=== PATIENT | male | born 1955 | race Caucasian/White ===

== ENCOUNTER 2022-01-21 13:07 | Outpatient (REF) | payer MEDICARE, BC, SELFPAY ==
[2022-01-21 15:09] LABS: BF Clarity* Clear; BF Color Xanthochromic; BF Total Volume* 9
[2022-01-21 15:10] LABS: Mononuclear WBC Body Fluid* 87 %; Polynuclear WBC Body Fluid* 13 %; RBC, Body Fluid* 0.001 10^6/uL; WBC, Body Fluid* 0.053 10^3/uL
== END 2022-01-21 13:08 | disposition home or self-care (01) ==
LOC: NPINS 13:07
PROVIDERS: PCP Family Medicine; Visit Provider Physician Assistant
DX: M25.462 Effusion, left knee (principal); M25.562 Pain in left knee
CPT/HCPCS: 87070; 87205; 89051; 89060

== ENCOUNTER 2022-01-27 10:12 | Outpatient (CLI) | payer MEDICARE, BC, SELFPAY ==
--- OUTSIDE RECORDS SUMMARY | 2022-01-27 10:14 | XMS_ITS | Encounter Summary ---
:1955 Author Organization [place] Address [address] [facility] [place] [address] Care Team Providers Name Role Phone Tony Gray MD Unavailable Conner Harper MD Unavailable Marivel Cavazos PA-C Unavailable Zhang Masterson Primary Care Provider Encounter Details Date Type Department Care Team Description 10/21/2021 Travel Social History Tobacco Use Types Packs/Day Years Used Date Former Smoker Cigarettes Smokeless Tobacco: Never Used Alcohol Use Standard Drinks/Week Comments Never 0 (1 standard drink = 0.6 oz pure alcoho l) Sex Assigned at Date Recorded Not on file COVID-19 Exposure Response Date Recorded In the last 10 days, have you been in contact with No / Unsu re 10/21/2021 9:25 AM CDT someone who was confirmed or suspected to have Coronavirus/COVID-19? documented as of this encounter Plan of Treatment Upcoming Encounters Date Type Specialty Care Team Description 02/17/2022 Office Visit Pain & [place] [address] [facility] [place] [address] (Wo rk) documented as of this encounter Visit Diagnoses Not on filedocumented in this encounter Care Teams Auto Body Technician Relationship Specialty Start Date End Date Zhang Masterson PCP - General Family Medicine 05/19/[address] [place] [address] [place] [address] Tony Gray MD Referring Physician Orthopedics 10/01/14 Conner Harper MD MD Orthopedics 10/01/[address] [place], [place] [address] Marivel Cavazos, Assigned Surgical Provider 1 PAAleida 1600 [facility] 101 [place], [place] [id number] documented as of this encounter
--- OUTSIDE RECORDS SUMMARY | 2022-01-27 10:14 | XMS_ITS | Encounter Summary ---
:1955 Author Organization [place] Address [address] [facility] [place] [address] Care Team Providers Name Role Phone Tony Gray MD Unavailable Conner Harper MD Unavailable Marivel Cavazos PA-C Unavailable Zhang Masterson Primary Care Provider Reason for Visit Reason Onset Date Comments Opioid Refill 11/16/2021 HYDROcodone-acetamin ophen (NORCO) 10-325 MG per tablet Encounter Details Date Type Department Care Team Description 11/16/2021 Refill [facility] Matias Burton MD (HYDROcodone-acetamino [address] [address] [place] phen (NORCO) 10-325 MG [address] [place] [address] per tablet/) [place], [place] [id number] [phone] Social History Tobacco Use Types Packs/Day Years [...] have Coronavirus/COVID-19? documented as of this encounter Miscellaneous Notes Telephone Encounter - Bria Mena MA - 11/18/2021 8:32 AM CDT Spoke to patient, notified that prescription was sent to preferred pharmacy. Able to fill 11/18/21 and start 11/20/21 Bria Mena MA [facility] Telephone Encounter - Ortiz Perez MD - 11/16/2021 12:53 PM CDT HULL BUILDER reviewed, norco refill approved. DO Kary Campuzano [facility] Telephone Encounter - Lauren Mcmillan RN - 11/16/2021 12:36 PM CDT Routing to provider to review medication prepped per below Horner 10-325, #150, Refill:no Sig:. Max of 5/day. Put 6 hours between doses. OK to fill 11/18/21 and start 11/20/21 Last picked up 10/15/21 with start on 10/21/21 Due 11/20/21 Per last OV note 10/15/21: 1. Medication Management:?? 1. Horner 10-325, 4-5 tabs daily, #150/month. Will increase back to 150 with next refill. They will call and let us know how man tablets are remaining from the last refill. Lauren KRAFT, RN Melt House Drag Operator [facility] Telephone Encounter - Bria Mena MA - 11/16/2021 9:46 AM CDT Received call from patient requesting refill(s) of HYDROcodone-acetaminophen (NORCO) 10-325 MG per tablet Last dispensed from pharmacy on 10/18/21 Patient's last office/virtual visit by prescribing provider on 10/15/21 Next office/virtual appointment scheduled for 12/14/21 Last urine drug screen date 05/20/21 Current opioid agreement on file (completed within the last year) Yes Date of opioid agreement: 09/01/21 E-prescribe to [facility] [address] [address] Will route to [facility] for review and preparation of prescription(s). Bria Mena MA [facility] [place] Telephone Encounter - Rose Tee - 11/16/2021 8:36 AM CDT Reason for call: Medication If this is a refill request, has the caller requested the refill from the pharmacy already? No Will the patient be using a [facility]? [place] of the pharmacy and phone number for the current request: [facility] - [address] Name of the medication requested: -HYDROcodone-acetaminophen (NORCO) 10-325 MG per tablet -hydrOXYzine (VISTARIL) 25 MG capsule Phone number to reach patient: Home number on file [phone] (home) Can we leave a detailed message on this number? 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
--- OUTSIDE RECORDS SUMMARY | 2022-01-27 10:14 | XMS_ITS | Encounter Summary ---
:1955 Author Organization [place] Address [address] [place] [address] Care Team Providers Name Role Phone Tony Gray MD Unavailable Conner Harper MD Unavailable Marivel Cavazos PA-C Unavailable Zhang Masterson Primary Care Provider Reason for Visit Reason Onset Date Comments Transfer Note 10/25/2021 Encounter Details Date Type Department Care Team Description 10/25/2021 [facility] Ortiz Gill Transfer [place] [address] [address] [facility] [address] [place] [address] [place] [address] [phone] Social History Tobacco Use Types Packs/Day Years [...] this encounter Miscellaneous Notes Telephone Encounter - Lauren Mcmillan RN - 10/25/2021 11:04 AM CDT Called pt with transfer plan to transition to Dr Buckley. Pt aware discussion re:recent CT will stillbe reviewed by Dr Perez, transition upon his departure from clinic to be with Dr Marcio KRAFT, RN Lithographic Plate Maker Apprentice [facility] documented in this encounter Plan of Treatment Upcoming Encounters Date Type Specialty Care Team Description 02/17/2022 Office Visit Pain & [place] [address] [place], [place] [address] (Wo rk) documented as of this encounter Visit Diagnoses Not on filedocumented in this encounter Care Teams Stripper Apprentice Relationship Specialty Start Date End Date Zhang Masterson PCP - General Family Medicine 05/19/[address] [place] [address] Tony Gray MD Referring Physician Orthopedics 10/01/14 Conner Harper MD MD Orthopedics 10/01/[address] [place] [address] Marivel Cavazos, Assigned Surgical Provider 1 PAJuventinoC [address] [facility] [address] [place], [place] [id number] documented as of this encounter
--- OUTSIDE RECORDS SUMMARY | 2022-01-27 10:14 | XMS_ITS | Clinical Summary ---
:1955 Author Organization [place] Address [address] [place] [address] Care Team Providers Name Role Phone Tony Gray MD Unavailable Conner Harper MD Unavailable Marivel Cavazos PA-C Unavailable Zhang Masterson Primary Care Provider Allergies Active Allergy Reactions Severity Noted Date Comments Bee Venom High 06/06/2011 Other reaction( s): Edema Bees 11/03/2014 Fentanyl Shortness Of Breath High 05/06/2011 Gabapentin Hives, Swelling 01/27/2012 Other reacti on(s): Angioedema Methadone Rash Low 05/06/2011 Oxycodone Hives High 06/06/2011 Oxycodone-Acetaminophen Rash Low 05/06/2011 Sulfamethoxazole-Trimet 06/06/2011 Othe r reaction(s): hoprim *Unknown - Pt D oesn't Remember Tapentadol Hives, Itching High 03/01/2017 Other reactio n(s): Atopic Dermatit is Medications Medication Sig Dispensed Refills Start Date End Date Status amLODIPine (NORVASC) 5 0 03/02/2021 Active MG tablet torsemide (DEMADEX) 20 0 02/26/2021 Active MG tablet hydrALAZINE Take 100 mg by 0 03/17/2021 Ac tive (APRESOLINE) 50 MG mouth 2 times tablet daily acetaminophen Take 1 tablet 120 tablet 0 08/25/2021 Active (TYLENOL) 500 MG (500 mg) by mouth tabletIndications: every 6 hours as Degeneration of lumbar needed for mild intervertebral disc, pain Chronic bilateral low back pain with bilateral sciatica hydrOXYzine (VISTARIL) Take 1 capsule 90 capsule 1 10/29/2021 Active 25 MG (25 mg) by mouth capsuleIndications: 3 times daily as Chronic pain syndrome, needed for Degeneration of lumbar itching intervertebral disc, Chronic bilateral low back pain with bilateral sciatica cyclobenzaprine Take 1-2 tablets 150 tablet 0 12/14/2021 Active (FLEXERIL) 5 MG (5-10 mg) by tabletIndications: mouth 3 times Chronic pain syndrome, daily as needed Degeneration of lumbar for muscle spasms intervertebral disc, Chronic bilateral low back pain with bilateral sciatica HYDROcodone-acetaminop Take 1-2 tablets 165 tablet 0 2 Active hen (NORCO) 10-325 MG by mouth 3 times per tabletIndications: daily as needed Chronic pain syndrome, for severe pain . Degeneration of lumbar Max of 5/day. Put intervertebral disc, 6 hours between Chronic bilateral low doses. OK to fill back pain with 12/17/21 and bilateral sciatica start 12/18/21 naloxone (NARCAN) 4 [place] 1 spray (4 0.2 mL 0 12/14/2021 Active MG/0.1ML nasal mg) into one sprayIndications: nostril Chronic pain syndrome, alternating Degeneration of lumbar nostrils once as intervertebral disc, needed for opioid Chronic bilateral low reversal every back pain with 2-3 minutes until bilateral sciatica, assistance Chronic, continuous arrives use of opioids Active Problems Problem Noted Date Knee pain 11/03/2014 S/P ACL reconstruction 11/03/2014 DJD (degenerative joint disease) of knee 11/03/2014 S/P meniscectomy 11/03/2014 Encounters Date Type Specialty Care Team Description 12/14/2021 Office Visit Pain & Palliative Ortiz Perez Newspaper Correspondent [place], continuous use of opioids (Primary Dx); oLc Burton MD Chronic pain sy ndrome; Degeneration of lumbar intervertebral disc; Chronic bilater al low back pain with bilateral sciatica; Lumbar radiculo vamsi 12/14/2021 Travel 11/16/2021 Refill Pain & Palliative Ortiz Perez Opio id Refill Loc Burton MD (HYDROcodone-ac etamino phen (NORCO) 10 -325 MG per tablet/) 10/29/2021 Refill Pain & Palliative Ortiz Perezi ll Request Care MD Micheal from Last 3 Months Immunizations Name Administration Dates Next Due COVID-19,PF,Pfizer (12+ Yrs) 10/26/2020, 10/05/2020 Social History Tobacco Use Types Packs/Day Years Used Date Former Smoker Cigarettes Smokeless Tobacco: Never Used Alcohol Use Standard Drinks/Week Comments Never 0 (1 standard drink = 0.6 oz pure alcoho l) Sex Assigned at Date Recorded Not on file Last Filed Vital Signs Vital Sign Reading Time Taken Comments Blood Pressure 143/78 12/14/2021 9:25 AM CDT Pulse 63 12/14/2021 9:25 AM CDT Temperature - - Respiratory Rate 18 02/04/2021 11:07 AM CDT Oxygen Saturation 97% 12/14/2021 9:25 AM CDT Inhaled Oxygen Concentration - - Weight 96.2 kg (212 lb 1.6 oz) 10/15/2021 9:58 AM CDT Height 172.7 cm (5' 8) 02/04/2021 11:07 AM CDT Body Mass Index 32.25 02/04/2021 11:07 AM CDT Plan of Treatment Upcoming Encounters Date Type Specialty Care Team Description 02/17/2022 Office Visit Pain & [place] [address] [place], [place] [address] (Wo rk) Health Maintenance Due Date Last Done Comments ADVANCE CARE PLANNING 1955 ANNUAL REVIEW OF HM ORDERS 1955 CT COLONOGRAPHY 1955 FIT-DNA (Cologuard) 1955 FIT 1955 FLEX SIG 1955 COLONOSCOPY 1966 COLORECTAL CANCER SCREENING 1966 HIV SCREENING 09/13/1971 HEPATITIS C SCREENING 1974 LIPID 09/13/1991 LUNG CANCER SCREENING 2006 ZOSTER IMMUNIZATION (1 of 2) 2006 PHQ-2 (once per calendar 06/19/2021 year) COVID-19 Vaccine (4 - Booster 09/04/2021 05/07/2021, for Pfizer series) 10/26/2020, 10/05/2020 AORTIC ANEURYSM SCREENING 2021 (SYSTEM ASSIGNED) FALL RISK ASSESSMENT 2021 MEDICARE ANNUAL WELLNESS 2021 VISIT Pneumococcal Vaccine: 65+ 2021 Years (1 - PCV) INFLUENZA VACCINE (#1) 2022 DTAP/TDAP/TD IMMUNIZATION (2 05/15/2022 05/15/2012 - Td or Tdap) URINE DRUG SCREEN 05/20/2022 05/20/2021, 06/10/2020, 06/13/2019 HEPATITIS B IMMUNIZATION Aged Out No long er eligible based on patient's age to complete this to pic IPV IMMUNIZATION Aged Out No longer eligi ble based on patient's age to complete this to pic MENINGITIS IMMUNIZATION Aged Out No longe r eligible based on patient's age to complete this to pic Medical Devices Implanted Type Area [employer]roleum [employer] Firer Device Shelf Model / Identifier Expiration Date Ser ial / Lot Igp Kit/Generator Right: 02/07/2020 / Implanted: Qty: 1 on 11/29/2018 Back [id number] / [id number] Description: GENERATOR PLACED IN RIGHT F LANK Procedures Procedure Name Priority Date/Time Associated Diagnosis Comme nts EMG - HIM SCAN 01/03/2022 12:00 AM CDT from Last 3 Months Results EMG - HIM SCAN (01/03/2022 12:00 AM CDT) Specimen (Source) Anatomical Location Collection Method / Collectio n Time Received Time / Laterality Volume 01/03/2022 Narrative This result has an attachment that is no t available. Provider Outside IP NEUROLOGY ORDERABLES from Last 3 Months Insurance Payer Benefit Plan / Subscriber ID Effective Phone Address T ype Group Dates WORK COMP WC LIBERTY [id number] 2001-Prese [phone] [address] [employer] [address] [place] [address] MEDICARE MEDICARE [id number] 2005-Prese [id number] ATTN CLAI MS Medicare nt 40 [address] [place] [address] MEDICARE MEDICARE FOR HB [id number] 2016-Prese [phone] ATTN CLAIMS Medicare SUPPLEMENT nt 40 [address] [place] [address] Tremaine Plunkett Worker's Self 1955 [id number] Compensation 0 (Home) [place] [address] Care Teams Mesh Man Relationship Specialty Start Date End Date Zhang Masterson PCP - General Family Medicine 05/19/[address] [place] [address] [place] [address] Tony Gray MD Referring Physician Orthopedics 10/01/14 Conner Harper MD MD Orthopedics 10/01/[address] [place], [place] [address] Marivel Cavazos, Assigned Surgical Provider 1 PAAleida [address] [facility] [address] [place], [place] [phone]
--- OUTSIDE RECORDS SUMMARY | 2022-01-27 10:14 | XMS_ITS | Encounter Summary ---
:1955 Author Organization [place] Address [address] [facility] [place] [address] Care Team Providers Name Role Phone Tony Gray MD Unavailable Conner Harper MD Unavailable Marivel Cavazos PA-C Unavailable Zhang Masterson Primary Care Provider Encounter Details Date Type Department Care Team Description 12/14/2021 Travel Social History Tobacco Use Types Packs/Day Years Used Date Former Smoker Cigarettes Smokeless Tobacco: Never Used Alcohol Use Standard Drinks/Week Comments Never 0 (1 standard drink = 0.6 oz pure alcoho l) Sex Assigned at Date Recorded Not on file COVID-19 Exposure Response Date Recorded In the last 10 days, have you been in contact with No / Unsu re 12/14/2021 9:21 AM CDT someone who was confirmed or suspected to have Coronavirus/COVID-19? documented as of this encounter Plan of Treatment Upcoming Encounters Date Type Specialty Care Team Description 02/17/2022 Office Visit Pain & [place] [address] [facility] [place] [address] (Wo rk) documented as of this encounter Visit Diagnoses Not on filedocumented in this encounter Care Teams Button Attaching Machine Operator Relationship Specialty Start Date End Date Zhang Masterson PCP - General Family Medicine 05/19/[address] [place] [address] [place] [address] Tony Gray MD Referring Physician Orthopedics 10/01/14 Conner Harper MD MD Orthopedics 10/01/[address] [place], [place] [id number] Marivel Cavazos, Assigned Surgical Provider 1 PAAleida 1600 [facility] 101 [place], [place] [id number] documented as of this encounter
--- OUTSIDE RECORDS SUMMARY | 2022-01-27 10:14 | XMS_ITS | Encounter Summary ---
:1955 Author Organization [facility] Address [address] [place] [address] Care Team Providers Name Role Phone Tony Gray MD Unavailable Conner Harper MD Unavailable Marivel Cavazos PA-C Unavailable Zhang Masterson Primary Care Provider Reason for Visit Reason Comments Pain Encounter Details Date Type Department Care Team Description 12/14/[address] [facility] Ortiz Perez [place], continuous use of opioids (Primary Dx); Pain Management MD Micheal Chronic pain syndrome; [place] [address] [address] Degeneration of lumbar intervertebral di sc; [address] [place], [place] [address] Chronic bilateral low back pain with mariel ateral sciatica; Drive Lumbar radiculopathy [address] [place] [address] Social History Tobacco Use Types Packs/Day Years [...] have Coronavirus/COVID-19? documented as of this encounter Last Filed Vital Signs Vital Sign Reading Time Taken Comments Blood Pressure 143/78 12/14/2021 9:25 AM CDT Pulse 63 12/14/2021 9:25 AM CDT Temperature - - Respiratory Rate - - Oxygen Saturation 97% 12/14/2021 9:25 AM CDT Inhaled Oxygen Concentration - - Weight - - Height - - Body Mass Index - - documented in this encounter Patient Instructions Patient InstructionsOrtiz Perez MD - 12/14/2021 9:30 AM CDT You can call to schedule your EMG, this is at the [facility]. [facility] don't have the order, call again tomorrow because we will be faxing our order again. Start flexeril 5mg three times daily as needed, if there is no improvement in your back pain and you're not having any side effects, you can take up to 10mg three times daily as needed. I ordered a refill of norco 10-325, 165 tablets/month. Follow up in 2 months, you'll be transferred to Dr. Buckley. Clinic Number: [phone] Call with any questions about your care and for scheduling assistance. Calls are returned Monday through Monday between 8 AM and 4:30 PM. We usually get back to you within2 business days depending on the issue/request. If we are prescribing your medications: For opioid medication refills, call the clinic or send a Picreel message 7 days in advance. Please include: Name of requested medication Name of the pharmacy. For non-opioid medications, call your pharmacy directly to request a refill. Please allow 3-4 days to be processed. Per [place] State Law: All controlled substance prescriptions must be filled within 30 days of being written. For those controlled substances allowing refills, pickup must occur within 30 days of last fill. We believe regular attendance is nolan to your success in our program! Any time you are unable to keep your appointment we ask that you call us at least 24 hours in advance to cancel.This will allow us to offer the appointment time to another patient. Multiple missed appointments may lead to dismissal from the clinic. documented in this encounter Progress Notes Ortiz Perez MD - 12/14/2021 9:30 AM CDT [facility] Date of visit: 12/14/21 Assessment: Tremaine Plunkett is a 66 year old with past medical history including: HTN, PVCs, diastolic heart failure, Obstructive and Central sleep apnea, Obesity who presents for transfer of care from [facility]. They are being seen for the following chronic pain conditions: ?? 1. Chronic low back pain with intermittent lumbar radiculopathy: Work related injury from 2001. Theyreport ongoing chronic low back pain and intermittent bilateral radicular pain in an L4/5 distribution, worse on the left side. Repeat CT shows mod-severe foraminal stenosis bilaterally in the lower lumbar spine, EMG yet to be completed. Symptoms have been gradually worsening in the past 2 years, there is concern for acute on chronic radiculopathy. They did have a nevro SCS placed by Dr. Loyola in 2019 which is currently providing minimal relief. Unfortunately they failed conservative medical management and they have been taking norco 10-325 two tabs BID-TID for the past couple years. During this time they have tried other medications including belbuca with limited relief. They had been prescribed 6 tabs of norco 10-325mg daily and take 4-6 daily through the month, they have been unable to reduce to 150 tabs/month consistently. ?? 2. Chronic opioid use: Currently tremaine is taking norco 10-325mg about 6 tabs daily on average. Theyreport significant improvement in pain levels with this medication and are able to walk 1 hour dailyand ride their exercise bike for 10- 15 minutes. ?? Plan: The following recommendations were given to the patient. Diagnosis, treatment options, risks, benefits, and alternatives were discussed, and all questions were answered. The patient expressed understanding of the plan for management. ?? I am recommending a multidisciplinary treatment plan to help this patient better manage his pain. This includes: ?? 1. Physical Therapy: Continue current exercise regimen. 2. Clinical Health Pain Psychologist: coping well, defer. 3. Self Care Recommendations: Gentle progressive exercise that does not increase pain - gradually increase daily walking program. Take mini breaks - 5 minutes of mindfullness a couple times a day. 4. Diagnostic Studies: 1. Lumbar CT scheduled. 5. Medication Management: 1. [place] 10-325, 4-6 tabs daily, #165/month. New refill provided today. 2. Acetaminophen 500mg QID. 3. Stop methocarbamol 4. Flexeril 5-10mg TID prn ordered. 5. Urine toxicology screen - 05/20/21 6. Opioid agreement - 09/23/21 6. Further procedures recommended: Consider ricci vs facet injections based on EMG results, would favor ircci if acute radiculopathy is noted. Could also consider surgical referral based on the EMG results. 7. Referrals: EMG referral placed to evaluate their radiculopathy (acute vs chronic), will have [facility] call back to schedule. 8. Follow up: 2 months, will call to schedule and transfer care. ?? Ortiz Perez DO [facility] Pain Management Chief complaint: No chief complaint on file. Interval history: Tremaine Plunkett is a 65 year old male last seen by me on 10/15/21. Since his last visit, Tremaine Plunkett reports: - EMG has been approved but he has had difficulty scheduling this. -Still feels that the pain in the back and the pain radiating into his legs is getting worse. This seems to be worse on the left side. -Back pain has been getting worse as well, across the belt line. -They've had to take 6 tabs of norco on more days in the past month. They have about 16 tabs left from their last prescription. -They take anywhere between 4-6 tabs based on their pain and activity levels. Pain scores: Pain intensity on average is 8 on a scale of 0-10. Pain Treatments: 1. Medications: Current pain medications: -[place] 10-325mg 4-6 tabs daily - 40-60 MME -Tylenol 1-2 tabs daily as needed Previous pain medications: -Ibuprofen - uses rarely due to cardiac issues -Lyrica, Gabapentin - rash? -TCAs - nh, side effects -Duloxetine - nh -Methocarbamol 500mg BID prn - nh -methadone - night palmer 2. Physical Therapy: helpful in the past, has been years TENS unit: helpful, currently uses 3. Pain psychology: completed in the past 4. Surgery: no spine surgeries. Had SCS implant 10/23/18 - Nevro - he has had trouble getting reps to come help change the settings. 5. Injections: -Epidurals and RFA with declining benefit years ago ? Side Effects: denies Medications: Current Outpatient Medications Medication Sig Dispense Refill ??? acetaminophen (TYLENOL) 500 MG tablet Take 1 tablet (500 mg) by mouth every 6 hours as needed for mild pain 120 tablet 0 ??? amLODIPine (NORVASC) 5 MG tablet ??? hydrALAZINE (APRESOLINE) 50 MG tablet Take 100 mg by mouth 2 times daily ??? HYDROcodone-acetaminophen (NORCO) 10-325 MG per tablet Take 1-2 tablets by mouth 3 times daily as needed for severe pain . Max of 5/day. Put 6 hours between doses. OK to fill 11/18/21 and start 11/20/21 150 tablet 0 ??? hydrOXYzine (VISTARIL) 25 MG capsule Take 1 capsule (25 mg) by mouth 3 times daily as needed foritching 90 capsule 1 ??? methocarbamol (ROBAXIN) 500 MG tablet Take by mouth 4 times daily as needed for muscle spasms ??? torsemide (DEMADEX) 20 MG tablet Medical History: any changes in medical history since they were last seen? No Review of Systems: Positive for: back and leg pain Any bowel or bladder problems: none new Mood: poor Physical Exam: Blood pressure (!) 143/78, pulse 63, SpO2 97 %. General: well developed, NAD Gait: Antalgic, slow MSK exam: Lumbar ROM is mod reduced in all planes, pain with ext/rot bilaterally. Paraspinal tenderness at L4-S1 bilaterally. Strength is 5/5 and symmetric in the legs. BILLING TIME DOCUMENTATION: The total TIME spent on this patient on the date of the encounter/appointment was 35 minutes. TOTAL TIME includes: Time spent preparing to see the patient (reviewing records and tests) Time spent face to face (or over the phone) with the patient Time spent ordering tests, medications, procedures and referrals Time spent Referring and communicating with other healthcare professionals Time spent documenting clinical information in [facility] DO Liliana Ayala Pain Management documented in this encounter Plan of Treatment Upcoming Encounters Date Type Specialty Care Team Description 02/17/2022 Office Visit Pain [place] [address] [place], [place] [address] (Wo rk) documented as of this encounter Visit Diagnoses Diagnosis Chronic, continuous use of opioids - Kena freida Opioid type dependence, continuous Chronic pain syndrome Degeneration of lumbar intervertebral di sc Degeneration of lumbar or lumbosacral in tervertebral disc Chronic bilateral low back pain with mariel ateral sciatica Lumbar radiculopathy Thoracic or lumbosacral neuritis or radi culitis, unspecified documented in this encounter Care Teams Medical Aide Relationship Specialty Start Date End Date Zhang Masterson PCP - General Family Medicine 05/19/[address] [place] [id number] Tony Gray MD Referring Physician Orthopedics 10/01/14 Conner Harper MD MD Orthopedics 10/01/[address] [place] [address] Marivel Cavazos, Assigned Surgical Provider [address] [facility] [address] [place] [address] documented as of this encounter
--- OUTSIDE RECORDS SUMMARY | 2022-01-27 10:15 | XMS_ITS | Encounter Summary ---
:1955 Author Organization [facility] Address [address] [facility] [place] [address] Care Team Providers Name Role Phone Tony Gray MD Unavailable Conner Harper MD Unavailable Marivel Cavazos PA-C Unavailable Zhang Masterson Primary Care Provider Reason for Visit Reason Onset Date Comments Patient/info Update 10/18/2021 Encounter Details Date Type Department Care Team Description 10/18/2021 [facility] Ortiz Gill Patient/[place] [address] [place] [address] [place] [address] [phone] Social History Tobacco Use Types Packs/Day Years Used Date Former Smoker Cigarettes Smokeless Tobacco: Never Used Alcohol Use Standard Drinks/Week Comments Never 0 (1 standard drink = 0.6 oz pure alcoho l) Sex Assigned at Date Recorded Not on file COVID-19 Exposure Response Date Recorded In the last 10 days, have you been in contact with No / Unsu re 10/15/2021 9:50 AM CDT someone who was confirmed or suspected to have Coronavirus/COVID-19? documented as of this encounter Miscellaneous Notes Telephone Encounter - Beatriz Mo - 10/18/2021 2:52 PM CDT Spoke to patient. Advised prescription was sent to pharmacy. Confirmed pharmacy. Gave fill date of today. Gave start date of 10/21/21 Patient stated understanding. RAFAEL Miranda [facility] Telephone Encounter - Ortiz Perez MD - 10/18/2021 11:09 AM CDT Thanks, he may have had some left over because he was taking 4/day in the beginning of the month. New refill approved. DO Kary Campuzano [facility] Telephone Encounter - Lauren Mcmillan RN - 10/18/2021 10:12 AM CDT Routing to provider to review. See pill count below. CSA: 09/22/21- signed CSA 09/01/21(see 09/14/21 encounter) UDS: 05/20/21(kite provider) Routing to provider to review medication prepped per below norco 10-325, #150, Refill:no Sig:. Max of 5/day. Put 6 hours between doses. OK to fill 10/19/21 and start 10/21/21 Last picked up 09/20/21 with start on 09/21/21 Due 10/21/21 (was a 28 day supply so due 10/19 but pt reports #18 remaining -now due 10/21), now changed to 30day-#150 Per 10/15/21: 1. Call and let us know how many norco tablets you have left. Your next refill would be due on 10/19/21 if you've been taking 5 tabs/day. Lauren KRAFT, RN Lamination Spinner [facility] Telephone Encounter - Cely Toscano - 10/18/2021 8:49 AM CDT Patient calling to state he has 18 tablets of HYDROcodone-acetaminophen (NORCO) 10-325 MG per tablet. Cely Bustos Concrete Vibrator Operator [facility] documented in this encounter Plan of Treatment Upcoming Encounters Date Type Specialty Care Team Description 02/17/2022 Office Visit Pain & [place] [address] [place], [place] [address] (Wo rk) documented as of this encounter Visit Diagnoses Diagnosis Chronic pain syndrome Degeneration of lumbar intervertebral di sc Degeneration of lumbar or lumbosacral in tervertebral disc Chronic bilateral low back pain with mariel ateral sciatica documented in this encounter Care Teams Administrative Clerk Relationship Specialty Start Date End Date Zhang Masterson PCP - General Family Medicine 05/19/[address] [place] [id number] Tony Gray MD Referring Physician Orthopedics 10/01/14 Conner Harper MD MD Orthopedics 10/01/[address] [place] [address] Marivel Cavazos, Assigned Surgical Provider [address] [facility] [address] [place] [address] documented as of this encounter
--- OUTSIDE RECORDS SUMMARY | 2022-01-27 10:15 | XMS_ITS | Encounter Summary ---
:1955 Author Organization [facility] Address [address] [place] [address] Care Team Providers Name Role Phone Tony Gray MD Unavailable Conner Harper MD Unavailable Marivel Cavazos PA-C Unavailable Zhang Masterson Primary Care Provider Reason for Referral - Pending Review Specialty Diagnoses / Procedures Referred By Contact Refer red To Contact Diagnoses Lumbar radiculopathy Degeneration of lumbar intervertebral disc Ortiz Perez Procedures EMG MD Micheal [id number] [place] [address] Referral ID Status Reason Start Date Expiration Date Visits V isits Requested Authorized [id number] Pending 07/14/2021 07/14/2022 [address] Scan (Routine) - Pending Review Specialty Diagnoses / Procedures Referred By Contact Refer red To Contact Diagnoses Lumbar radiculopathy Degeneration of lumbar intervertebral disc Ortiz Perez Procedures CT Lumbar Spine w/o Contrast MD Micheal [address] [place] [address] Referral ID Status Reason Start Date Expiration Date Visits V isits Requested Authorized [id number] Pending 07/14/2021 07/14/2022 1 1 Review EY RODMAN Reason for Visit Reason Comments Pain Encounter Details Date Type Department Care Team Description 07/14/2021 Office Visit [facility] Chris, Ortiz Medina ar radiculopathy (Primary Dx); Pain Management MD Micheal Degeneration of lumbar intervertebral di ks; [place] [id number] [place] [address] Chronic pain syndrome; [address] [place], [place] [address] Chronic, continuous use of opioids Drive [facility] [address] [place] [address] Social History Tobacco Use Types Packs/Day Years Used Date Former Smoker Cigarettes Smokeless Tobacco: Never Used Alcohol Use Standard Drinks/Week Comments Never 0 (1 standard drink = 0.6 oz pure alcoho l) Sex Assigned at Date Recorded Not on file COVID-19 Exposure Response Date Recorded In the last month, have you been in contact with No / Unsure 07/14/2021 9:31 AM SURVEY RODMAN someone who was confirmed or suspected to have Coronavirus / COVID-19? documented as of this encounter Last Filed Vital Signs Vital Sign Reading Time Taken Comments Blood Pressure 144/72 07/14/2021 9:43 AM SURVEY RODMAN Pulse 56 07/14/2021 9:43 AM SURVEY RODMAN Temperature - - Respiratory Rate - - Oxygen Saturation 98% 07/14/2021 9:43 AM SURVEY RODMAN Inhaled Oxygen Concentration - - Weight - - Height - - Body Mass Index - - documented in this encounter Patient Instructions Patient InstructionsBria Mena MA - 07/14/2021 10:00 AM CST 1. Change your norco dosing to take 5 tablets daily max. You can continue taking 2 tabs in the morning but I would recommend reducing your night time dose to 1 tablet. You would have an additional 2 tablets to use during the day as needed. When you get home today count your norco tablets and let us know how many you have. 2. I ordered a CT scan of your low back, you'll be called to schedule this. 3. I ordered an EMG test, this is a nerve and muscle test. The referral will be sent to the [facility] and they should call you to schedule. 4. Follow up in 6 weeks. Take care, Ortiz Perez, DO [facility] Pain Management Clinic Number: [phone] ??? Call with any questions about your care and for scheduling assistance. ??? Calls are returned Monday through Monday between 8 AM and 4:30 PM. We usually get back to you within 2 business days depending on the issue/request. If we are prescribing your medications: ?? For opioid medication refills, call the clinic or send a AddressReport message 7 days in advance. Please include: ?? Name of requested medication ?? Name of the pharmacy. ?? For non-opioid medications, call your pharmacy directly to request a refill. Please allow 3-4 days to be processed. ?? Per [place] State Law: ?? All controlled substance prescriptions must be filled within 30 days of being written. ?? For those controlled substances allowing refills, pickup must occur within 30 days of last fill. We believe regular attendance is nolan to your success in our program! ??? Any time you are unable to keep your appointment we ask that you call us at least 24 hours in advance to cancel.This will allow us to offer the appointment time to another patient. ??? Multiple missed appointments may lead to dismissal from the clinic. EY RODMAN documented in this encounter Progress Notes Ortiz Perez MD - 07/14/2021 10:00 AM CST [facility] Consultation Date of visit: 07/14/2021 Assessment: Tremaine Plunkett is a 65 year old with past medical history including: HTN, PVCs, diastolic heart failure, Obstructive and Central sleep apnea, Obesity who presents for transfer of care from [facility]. They are being seen for the following chronic pain conditions: 1. Chronic lumbar radiculopathy: Work related injury from 2001. They report ongoing bilateral radicular pain in an L4/5 distribution that is worse on the right. Symptoms have been gradually worsening in the past 2 years. They did have a nevro SCS placed by Dr. Loyola in 2019 which is currently providing minimal relief. Unfortunately they failed conservative medical management and they have been taking norco 10-325 two tabs BID-TID for the past couple years. During this time they have tried other medications including belbuca with limited relief. On exam today they have reduced lumbar ROM in all planes, SLR positive bilaterally, strength sensation and reflexes were symmetric and intact. 2. Chronic opioid use: Currently tremaine is taking norco 10-325mg about 5 tabs daily on average. Theyreport significant improvement in pain levels with this medication and are able to walk 1 hour dailyand ride their exercise bike for 10- 15 minutes. We had a discussion today regarding the risks of opioids, particularly for Tremaine, in setting of untreated sleep apnea. I recommended that they reduce the night time use of this medication to 1 tab and if tolerating well, we can continue reducing night time use moving forward. Plan: The following recommendations were given to the patient. Diagnosis, treatment options, risks, benefits, and alternatives were discussed, and all questions were answered. The patient expressed understanding of the plan for management. I am recommending a multidisciplinary treatment plan to help this patient better manage his pain. This includes: 1. Physical Therapy: Continue current exercise regimen. 2. Clinical Health Pain Psychologist: coping well, defer. 3. Self Care Recommendations: Gentle progressive exercise that does not increase pain - gradually increase daily walking program. Take mini breaks - 5 minutes of mindfullness a couple times a day. 4. Diagnostic Studies: Lumbar CT ordered due to gradually worsening symptoms. 5. Medication Management: 1. [place] 10-325, 5 tabs daily, #150/month. They will call and let us know how many tablets they havefrom their prior prescription. 2. Urine toxicology screen - 05/20/21 3. Opioid agreement - at follow-up 6. Further procedures recommended: none at this time. 7. Referrals: EMG referral placed to evaluate their radiculopathy. 8. Follow up: 6 weeks. [address] [facility] Pain Management Reason for consultation: Tremaine Plunkett is a 65 year old male who is seen in consultation today at the request of his primary care physician, Zhang Masterson . Consultation and Evaluation for: chronic back pain Review of [place] Prescription Monitoring Program (HYDRAMATIC MECHANIC): Today I have also reviewed the patient's history of controlled substance use, as provided by [place] licensed pharmacies and prescriber dispensers. Review of Pain Questionnaire: Please see the [facility] [place] health questionnaire, which the patient completed and reviewed with me in detail. Review of Electronic Chart: Today I have also reviewed available medical information in the patient's medical record at [facility] ([facility]), including relevant provider notes, laboratory work, and imaging. Tremaine Plunkett has been seen at a pain clinic in the past. [facility]. Chief Complaint: Chief Complaint Patient presents with ??? Pain Pain history: Tremaine Plunkett is a 65 year old male who presents for initial evaluation of chief pain complaint ofchroni cpain. In 2001 they had a work related injury. 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 When he was doing this he heard a pop in his low back and he started having pain radiating into both legs, it is worse on the right side. They were managed non-operatively. They were seen at [facility] and had RFA and epidural injections without any significant improvement. They eventually had a spinal cord stimulator placed about 4 years ago ([place]) by Dr. Loyola. They have had some improvement with their SCS in the past but more recently they haven't been havingthat much relief. They have tried reprogramming and discussing with Nervo representatives without improvement. They do not notice any change when the battery runs down. They developed a rash and shortness of breath while in [place] over 2 years ago. He has seen dermatology without any clear diagnosis for their symptoms. They continue to have this rash and there has been concern previously it may be related to gabapentin. The rash appears in random locations in his upper and lower extremities. They walk and ride their exercise bike daily. They walk for an hour daily and use their exercise bike for 10-15 minutes daily. Unfortunately Marlines back pain and pain radiating into the legs has been gradually worsening over the past 2 years. They do not have any weakness or red flag signs. They do have intermittent periods of numbness in the feet. No falls/trips. Onset: 2001 Location/Radiation: back, bilateral legs worse on right Quality: aching, throbbing, tingling, numbness Severity/Intensity: 5/10 on average Aggravating factors include: being in the same position too long, too much activity Relieving factors include: rest Red Flags: The patient denies bowel or bladder incontinence, weakness, saddle anesthesia, unintentional weight loss, or fever/chills/sweats. Pain Treatments: 1. Medications: Current pain medications: -Methocarbamol 500mg BID prn -[place] 10-325mg -Tylenol 1-2 tabs daily as needed Previous pain medications: -Ibuprofen - uses rarely due to cardiac issues -Lyrica, Gabapentin - rash? -TCAs - nh, side effects -Duloxetine - nh -methadone - night palmer 2. Physical Therapy: helpful in the past, has been years TENS unit: helpful, currently uses 3. Pain psychology: completed in the past 4. Surgery: no spine surgeries. Had SCS implant. 5. Injections: -Epidurals and RFA with declining benefit years ago Diagnostic tests: MRI of L-spine was completed on 11/11/15 was reviewed with the patient and shows: INTERPRETATION: Chronic thoracolumbar Scheuermann's type endplate changes. No acute/subacute vertebral fracture. Component of mild developmental narrowing of the central spinal canal in the mid lumbar region. Limited sections through the sacrum are unremarkable. L5-S1: Normal disc height and hydration with no herniation or neural impingement. Mild hypertrophic facet changes mild to moderate left foraminal narrowing. No central stenosis. L4-5: Moderate severe disc degeneration with 5 mm AP central disc herniation along with diffuse foraminal bulge asymmetric to the left. Severe left and moderate right foraminal stenosis with left L4 ganglionic/neural impingement. L3-4: Moderate disc degeneration with annular bulge mildly flattening the thecal sac with mild relative central and right subarticular recess narrowing. Moderate left foraminal stenosis. Normal facet joints. L2-3: Mild/moderate disc degeneration with annular bulge and no focal neural impingement or central stenosis. L1-2: Ventral osteophytes with normal dorsal disc margin and patent central canal. Sections and lower thoracic spine show no disc herniation or neural impingement. Normal signal intensity distal cord/conus medullaris. CONCLUSION: Chronic thoracolumbar Scheuermann's type endplate changes with the following specific findings: 1. Chronic central L4-5 disc herniation encroaches on the central L5 roots without significant central stenosis. 2. Severe left L4-5 foraminal stenosis with left L4 ganglionic/neural impingement. 3. Moderate right L4-5 and mild to moderate left L5-S1 foraminal stenosis. 4. No fracture, mass or infection. Comment: As compared to previous study in 2007, progression of left foraminal stenosis at L4-5 with left L4 neural impingement. No significant change in central disc herniation at L4-5. Electronically signed on 11/11/2015 2:03:00 PM by Robert Reynolds M.D. Labs: Ref Range & Units 3 mo ago SODIUM 135 - 145 mmol/L 138 POTASSIUM 3.5 - 5.0 mmol/L 3.8 CHLORIDE 98 - 110 mmol/L 104 CO2,TOTAL 21 - 31 mmol/L 25 ANION GAP 5 - 18 9 GLUCOSE 65 - 100 mg/dL 110??High?? CALCIUM 8.5 - 10.5 mg/dL 9.5 BUN 8 - 25 mg/dL 20 CREATININE 0.72 - 1.25 mg/dL 1.40??High?? BUN/CREAT RATIO ? 10 - 20 14 GFR if >60 ml/min/1.73m2 >60 GFR if not >60 ml/min/1.73m2 51??Low?? Ref Range & Units 3 mo ago WHITE BLOOD COUNT ? 4.5 - 11.0 thou/cu mm 6.4 RED BLOOD COUNT ? 4.30 - 5.90 mil/cu mm 5.09 HEMOGLOBIN ? 13.5 - 17.5 g/dL 14.4 HEMATOCRIT ? 37.0 - 53.0 % 43.4 MCV ? 80 - 100 fL 85 MCH ? 26.0 - 34.0 pg 28.3 MCHC ? 32.0 - 36.0 g/dL 33.2 RDW ? 11.5 - 15.5 % 13.2 PLATELET COUNT ? 140 - 440 thou/cu mm 211 MPV ? 6.5 - 11.0 fL 10.1 NEUTROPHILS ? % 57.5 LYMPHOCYTES ? % 22.5 MONOCYTES ? % 10.3 EOSINOPHILS ? % 7.8 BASOPHILS ? % 1.4 IMMATURE GRANULOCYTES(METAS,MYELOS,PROS) % 0.5 ABSOLUTE NEUTROPHILS ? 1.7 - 7.0 thou/cu mm 3.7 ABSOLUTE LYMPHOCYTES ? 0.9 - 2.9 thou/cu mm 1.4 ABSOLUTE MONOCYTES ? <0.9 thou/cu mm 0.7 ABSOLUTE EOSINOPHILS ? <0.5 thou/cu mm 0.5??High?? ABSOLUTE BASOPHILS ? <0.3 thou/cu mm 0.1 ABSOLUTE IMMATURE GRANULOCYTES(METAS,MYELOS,PROS) <0.3 thou/cu mm 0.0 Resulting Agency [facility] Past Medical History: Past Medical History: Diagnosis Date ??? Arthritis ??? Lumbar radiculopathy Created by Conversion ??? Opioid type dependence, continuous (H) Created by Conversion Past Surgical History: Past Surgical History: Procedure Laterality Date ??? ABDOMEN SURGERY ??? BACK SURGERY ??? CHOLECYSTECTOMY ??? IR LUMBAR DISCOGRAM 08/28/2006 ??? IR THORACIC EPIDURAL STEROID INJECTION 01/27/2012 ??? JOINT REPLACEMENT ??? WI IMPLANT SPINAL NEUROSTIM/BENDER HELPER Right 11/29/2018 Procedure: RIGHT FLANK INCISION INSERTION SPINAL CORD STIMULATOR, INSERTION OF STIMULATOR ELECTRODES X2; Surgeon: Hugo Loyola MD; Location: [facility]; Service: Pain ??? WI NERVOUS SYSTEM SURGERY UNLISTED Description: Nerve Ablation Paravertebral Facet Joint Lumbar; Recorded: 05/06/2011; ??? [place] NERVOUS SYSTEM SURGERY UNLISTED Description: Nerve Ablation Paravertebral Facet Joint Thoracic; Recorded: 05/06/2011; ??? TONSILLECTOMY Medications: Current Outpatient Medications Medication Sig Dispense Refill ??? amLODIPine (NORVASC) 5 MG tablet ??? hydrALAZINE (APRESOLINE) 50 MG tablet Take 100 mg by mouth 2 times daily ??? HYDROcodone-acetaminophen (NORCO) 10-325 MG per tablet Take 1-2 tablets by mouth 3 times daily as needed for severe pain 168 tablet 0 ??? methocarbamol (ROBAXIN) 500 MG tablet Take by mouth 4 times daily as needed for muscle spasms ??? torsemide (DEMADEX) 20 MG tablet ??? hydrOXYzine (VISTARIL) 25 MG capsule Take 1 capsule (25 mg) by mouth 3 times daily as needed foritching 90 capsule 1 Allergies: Allergies Allergen Reactions ??? Bee Venom Other reaction(s): Edema ??? Fentanyl Shortness Of Breath ??? Oxycodone Hives ??? Tapentadol Hives and Itching Other reaction(s): Atopic Dermatitis ??? Bees ??? Gabapentin Hives and Swelling Other reaction(s): Angioedema ??? Sulfamethoxazole-Trimethoprim Other reaction(s): *Unknown - Pt Doesn't Remember ??? Methadone Rash ??? Oxycodone-Acetaminophen Rash Social History: Home situation: lives in [facility] Tobacco use: former smoker Drug use: denies Alcohol use: denies Family history: No family history on file. Review of Systems: POSTIVE IN BOLD GENERAL: fever/chills, fatigue, general unwell feeling, weight gain/loss. HEAD/EYES: headache, dizziness, or vision changes. EARS/NOSE/THROAT: Nosebleeds, hearing loss, sinus infection, earache, tinnitus. IMMUNE: Allergies, cancer, immune deficiency, or infections. SKIN: Urticaria, rash, hives HEME/Lymphatic: anemia, easy bruising, easy bleeding. RESPIRATORY: cough, wheezing, or shortness of breath CARDIOVASCULAR/Circulation: Extremity edema, syncope, hypertension, tachycardia, or angina. GASTROINTESTINAL: abdominal pain, nausea/emesis, diarrhea, constipation, hematochezia, or melena. ENDOCRINE: Diabetes, steroid use, thyroid disease or osteoporosis. MUSCULOSKELETAL: neck pain, back pain, arthralgia, arthritis, or gout. GENITOURINARY: frequency, urgency, dysuria, difficulty voiding, hematuria or incontinence. NEUROLOGIC: weakness, numbness, paresthesias, seizure, tremor, stroke or memory loss. PSYCHIATRIC: depression, anxiety, stress, suicidal thoughts or mood swings. Physical Exam: Vitals: 07/14/21 0943 BP: (!) 144/72 Pulse: 56 SpO2: 98% Exam: Constitutional: Well developed, well nourished, appears stated age. HEENT: Head atraumatic, normocephalic. Eyes without conjunctival injection or jaundice. Oropharynx clear. Skin: No rash, lesions, or petechiae of exposed skin. Extremities: Peripheral pulses intact. No clubbing, cyanosis, or edema. Psychiatric/mental status: Alert, without lethargy or stupor. Speech fluent. Appropriate affect. Mood normal. Able to follow commands without difficulty. Musculoskeletal exam: Gait/Station/Posture: gait is slow and antalgic. Lumbar spine: Range of motion is moderately reduced in all planes Rotation/ext to right: painful Rotation/ext to left: painful Myofascial tenderness: Bilateral paraspinals Focal tenderness: No SI joint, gluteal, piriformis, GT, or IT tenderness SLR: positive bilaterally Alan's maneuver: neg Hip exam: normal internal and external range of motion bilaterally. ANGELY negative. Scour negative. Neurologic exam: CN: Cranial nerves 2-12 are grossly intact Motor Strength: 5/5 symmetric UE and LE strength Reflexes: Patella L4: R: 2/4 L: 2/4 Achilles S1: R: 2/4 L: 2/4 Sensory: (upper and lower extremities): Light touch and pin prick: normal BILLING TIME DOCUMENTATION: The total TIME spent on this patient on the date of the encounter/appointment was 70 minutes. TOTAL TIME includes: Time spent preparing to see the patient (reviewing records and tests) Time spent face to face (or over the phone) with the patient Time spent ordering tests, medications, procedures and referrals Time spent Referring and communicating with other healthcare professionals Time spent documenting clinical information in [facility] EY RODMAN documented in this encounter Nursing Notes Bria Mena MA - 07/14/2021 10:00 AM CST PEG Score 05/19/2021 07/14/2021 PEG Total Score 8.[address] [facility] EY RODMAN Bria Mena MA - 07/14/2021 10:00 AM CST Faxed EMG to [facility] in [place], . Right Fax confirmed. HEATHER Son [facility] EY RODMAN documented in this encounter Plan of Treatment Upcoming Encounters Date Type Specialty Care Team Description 02/17/2022 Office Visit Pain & [place] [address] [place], [place] [address] (Wo rk) Scheduled Orders Name Type Priority Associated Diagnoses Order S chedule CT Lumbar Spine w/o Imaging Routine Lumbar radic ulopathy Expected: 07/14/2021 Contrast Degeneration of lumbar (Appr oximate), intervertebral disc Expires: 07/14/2022 EMG Neurology Routine Lumbar radiculop athy Expected: 07/14/2021 Degeneration of lumbar (Appr oximate), intervertebral disc Expires: 07/14/2022 documented as of this encounter Visit Diagnoses Diagnosis Lumbar radiculopathy - Primary Thoracic or lumbosacral neuritis or radi culitis, unspecified Degeneration of lumbar intervertebral di sc Degeneration of lumbar or lumbosacral in tervertebral disc Chronic pain syndrome Chronic, continuous use of opioids Opioid type dependence, continuous documented in this encounter Care Teams Principle Software Engineer Relationship Specialty Start Date End Date Aleja Zhang PCP - General Family Medicine 05/19/[address] [place] [id number] Tony Gray MD Referring Physician Orthopedics 10/01/14 Conner Harper MD MD Orthopedics 10/01/[address] [place] [address] Marivel Cavazos, Assigned Surgical Provider [address] [facility] [address] [place] [address] documented as of this encounter
--- OUTSIDE RECORDS SUMMARY | 2022-01-27 10:15 | XMS_ITS | Encounter Summary ---
:1955 Author Organization [place] Address [address] [facility] [place] [address] Care Team Providers Name Role Phone Tony Gray MD Unavailable Conner Harper MD Unavailable Marivel Cavazos PA-C Unavailable hZang Masterson Primary Care Provider Encounter Details Date Type Department Care Team Description 05/19/2021 Travel Social History Tobacco Use Types Packs/Day Years Used Date Former Smoker Cigarettes Smokeless Tobacco: Never Used Alcohol Use Standard Drinks/Week Comments Never 0 (1 standard drink = 0.6 oz pure alcoho l) Sex Assigned at Date Recorded Not on file COVID-19 Exposure Response Date Recorded In the last month, have you been in contact with No / Unsure 05/19/2021 9:52 AM MANUGRAPHER someone who was confirmed or suspected to have Coronavirus / COVID-19? documented as of this encounter Plan of Treatment Upcoming Encounters Date Type Specialty Care Team Description 02/17/2022 Office Visit [facility] & [place] [address] [facility] [place] [address] (Wo rk) documented as of this encounter Visit Diagnoses Not on filedocumented in this encounter Care Teams Golf Club Weigher Relationship Specialty Start Date End Date Zhang Masterson PCP - General Family Medicine 05/19/[address] [place] [address] Tony Gray MD Referring Physician Orthopedics 10/01/14 Conner Harper MD MD Orthopedics 10/01/[address] [place], [place] [address] Marivel Cavazos, Assigned Surgical Provider [address] [facility] [address] [place], [place] [id number] documented as of this encounter
--- OUTSIDE RECORDS SUMMARY | 2022-01-27 10:15 | XMS_ITS | Encounter Summary ---
:1955 Author Organization [place] Address [address] [facility]. [address] Care Team Providers Name Role Phone Tony Gray MD Unavailable Conner Harper MD Unavailable Marivel Cavazos PA-C Unavailable Zhang Masterson Primary Care Provider Encounter Details Date Type Department Care Team Description 07/14/2021 Travel Social History Tobacco Use Types Packs/Day Years Used Date Former Smoker Cigarettes Smokeless Tobacco: Never Used Alcohol Use Standard Drinks/Week Comments Never 0 (1 standard drink = 0.6 oz pure alcoho l) Sex Assigned at Date Recorded Not on file COVID-19 Exposure Response Date Recorded In the last month, have you been in contact with No / Unsure 07/14/2021 9:31 AM C PYTHON DEVELOPER someone who was confirmed or suspected to have Coronavirus / COVID-19? documented as of this encounter Plan of Treatment Upcoming Encounters Date Type Specialty Care Team Description 02/17/2022 Office Visit Pain & [place] [address] [facility] [place] [address] (Wo rk) documented as of this encounter Visit Diagnoses Not on filedocumented in this encounter Care Teams Smoke Jumper Supervisor Relationship Specialty Start Date End Date Zhang Masterson PCP - General Family Medicine 05/19/[address] [place] [address] Tony Gray MD Referring Physician Orthopedics 10/01/14 Conner Harper MD MD Orthopedics 10/01/[address] [place], [place] [address] Marivel Cavazos, Assigned Surgical Provider 1 MATT 1600 [facility] [address] [place], [place] [id number] documented as of this encounter
--- OUTSIDE RECORDS SUMMARY | 2022-01-27 10:15 | XMS_ITS | Encounter Summary ---
:1955 Author Organization [place] Address [address] [place] [address] Care Team Providers Name Role Phone Tony Gray MD Unavailable Conner Harper MD Unavailable Marivel Cavazos PA-C Unavailable Zhang Masterson Primary Care Provider Reason for Visit Reason Onset Date Comments Forms 09/14/2021 Encounter Details Date Type Department Care Team Description 09/14/2021 Telephone [facility] Ortiz Gill [place] [address] [address] [facility] [address] [place] [address] [place] [address] [phone] Social History Tobacco Use Types Packs/Day Years [...] this encounter Miscellaneous Notes Telephone Encounter - Gi Irwin RN - 09/14/2021 2:53 PM CDT Signed CSA dated 09/01/21 received by US mail from pt. Sent to provider inbox for signature and scanning. Closing encounter. Gi Andino RN Engineering Administrator [facility] documented in this encounter Plan of Treatment Upcoming Encounters Date Type Specialty Care Team Description 02/17/2022 Office Visit Pain & [place] [address] [place], [place] [address] (Wo rk) documented as of this encounter Visit Diagnoses Not on filedocumented in this encounter Care Teams Fixed Income Trading Vice President Relationship Specialty Start Date End Date Zhang Masterson PCP - General Family Medicine 05/19/[address] [place] [address] Tony Gray MD Referring Physician Orthopedics 10/01/14 Conner Harper MD MD Orthopedics 10/01/14 [address] [facility] [address] [place], [place] [phone] Marivel Cavazos, Assigned Surgical Provider 1 MATT 1600 [facility] [address] [place] [address] documented as of this encounter
--- OUTSIDE RECORDS SUMMARY | 2022-01-27 10:15 | XMS_ITS | Encounter Summary ---
:1955 Author Organization [place] Address [address] [place] [address] Care Team Providers Name Role Phone Tony Gray MD Unavailable Conner Harper MD Unavailable Marivel Cavazos PA-C Unavailable Zhang Masterson Primary Care Provider Reason for Referral Diagnostic Imaging CT Scan (Routine) - Closed Specialty Diagnoses / Procedures Referred By Contact Refer red To Contact Diagnoses Degeneration of lumbar intervertebral disc Chronic bilateral low back pain with bilateral sciatica Flor PerezOrtiz Procedures CT Lumbar Spine w/o Contrast CT Lumbar Spine w/o Contrast MD Micheal [address] [place] [address] Referral ID Status Reason Start Date Expiration Date Visits Requ ested Visits Authorized [id number] Closed 08/25/2021 08/25/2022 1 1 Reason for Visit Diagnostic Imaging CT Scan (Routine) - Closed Specialty Diagnoses / Procedures Referred By Contact Refer red To Contact Diagnoses Degeneration of lumbar intervertebral disc Chronic bilateral low back pain with bilateral sciatica Chris, Ortiz Procedures CT Lumbar Spine w/o Contrast CT Lumbar Spine w/o Contrast MD Micheal [address] [place] [address] Referral ID Status Reason Start Date Expiration Date Visits Requ ested Visits Authorized [id number] Closed 08/25/2021 08/25/2022 1 1 Encounter Details Date Type Department Care Team Description 10/21/2021 [facility] Ortiz Perez neration of lumbar intervertebral disc; Encounter [facility] MD Micheal Chronic bilateral low back pain with mariel ateral sciatica [address] [place] [phone] Social History Tobacco Use Types Packs/Day Years [...] have Coronavirus/COVID-19? documented as of this encounter Medications at Time of Discharge Medication Sig Dispensed Refills Start Date End Date acetaminophen (TYLENOL) Take 1 tablet (500 120 tablet 0 02/2022 500 MG tabletIndications: mg) by mouth every Degeneration of lumbar 6 hours as needed intervertebral disc, for mild pain Chronic bilateral low back pain with bilateral sciatica amLODIPine (NORVASC) 5 MG 0 03/02/2021 tablet hydrALAZINE (APRESOLINE) Take 100 mg by 0 021 50 MG tablet mouth 2 times daily torsemide (DEMADEX) 20 MG 0 02/26/2021 tablet HYDROcodone-acetaminophen Take 1-2 tablets 150 tablet 0 07/202111/16/2021 (NORCO) 10-325 MG per by mouth 3 times tabletIndications: Chronic daily as needed pain syndrome, for severe pain . Degeneration of lumbar Max of 5/day. Put intervertebral disc, 6 hours between Chronic bilateral low back doses. OK to fill pain with bilateral 10/18/21 and start sciatica 10/21/21 hydrOXYzine (VISTARIL) 25 Take 1 capsule (25 90 capsule 1 10/29/2021 MG capsuleIndications: mg) by mouth 3 Chronic pain syndrome, times daily as Degeneration of lumbar needed for itching intervertebral disc, Chronic bilateral low back pain with bilateral sciatica methocarbamol (ROBAXIN) Take by mouth 4 0 12/14/2021 500 MG tablet times daily as needed for muscle spasms documented as of this encounter Plan of Treatment Upcoming Encounters Date Type Specialty Care Team Description 02/17/2022 Office Visit Pain & [place] [address] [place], [place] [address] (Wo rk) documented as of this encounter Procedures Procedure Name Priority Date/Time Associated Diagnosis Comme nts CT LUMBAR SPINE Routine 10/21/2021 9:38 AM Degeneration of lum bar Results for this W/O CONTRAST CDT intervertebral d isc procedure are in Chronic bilateral low the re sults back pain with section. bilateral sciatica documented in this encounter Results CT Lumbar Spine w/o Contrast (10/21/2021 9:38 AM CDT) Anatomical Region Laterality Modality Spine, SUBRAD CT NEURO, UMP CT SPINE, RAD CT Computed Tomography Specimen (Source) Anatomical Location Collection Method / Collectio n Time Received Time / Laterality Volume Impressions 10/21/2021 3:34 PM CDT IMPRESSION: ?? 1. Degenerative change with multiple braeden noses as detailed. 2. Spinal cord stimulator device. ?? REJI FINCH MD SYSTEM ID: ??[id number] Narrative 10/21/2021 3:[address] LUMBAR SPINE WITHOUT CONTRAST ??10/21/2021 9:38 AM HISTORY: Low back pain, greater than six weeks. Low back pain, no red flags. Chronic low back pain with interm ittent L4-L5 radicular symptoms bilaterally. History of SCS sergio cement. Degeneration of lumbar intervertebral disc. Chronic bilateral l ow back pain with bilateral sciatica. TECHNIQUE: Axial images of the lumbar sp ine were obtained without intravenous contrast. Multiplanar reform ations were performed. Radiation dose for this scan was reduced using automated exposure control, adjustment of the mA and/or kV according to patient size, or iterative reconstruction technique. COMPARISON: None. FINDINGS: No fracture is identified. Ali gnment is significant for multilevel subtle grade 1 spondylolisthe sis. Multilevel moderate degenerative disc disease is present wit h areas of hyperattenuation within the L1-L2, L2-L3, L3-L4, and L4-L 5 disc spaces. Multilevel mild facet arthropathy. Moderate bilateral fa cet arthropathy at L5-S1. Disc bulging and ossification of the posterio r longitudinal ligament contribute to mild spinal canal stenosis at multiple levels. Moderate spinal canal stenosis at L3-L4. Bilatera l lateral recess narrowing at L3-L4, L4-L5, and L5-S1. Mild foraminal stenoses at multiple levels. Yoyx-xm-ftarkrtw bilateral foraminal braeden noses at L2-L3. Moderate right and severe left foraminal stenoses at L3 -L4. Severe bilateral foraminal stenoses at L4-L5. Mild right and moderate left foraminal stenoses at L5-S1. Scattered vascular calcifications. Bilat eral sacroiliac joint degenerative change. Spinal cord stimula tor device with leads entering the spinal canal at T11-T12 and T12-L1 e xtending superiorly beyond the superior field of view. Procedure Note Reji Finch MD - 10/21/2021F ormatting of this note might be different from the original. CT LUMBAR SPINE WITHOUT CONTRAST 9:38 AM HISTORY: Low back pain, greater than six weeks. Low back pain, no red flags. Chronic low back pain with interm ittent L4-L5 radicular symptoms bilaterally. History of SCS sergio cement. Degeneration of lumbar intervertebral disc. Chronic bilateral l ow back pain with bilateral sciatica. TECHNIQUE: Axial images of the lumbar sp ine were obtained without intravenous contrast. Multiplanar reform ations were performed. Radiation dose for this scan was reduced using automated exposure control, adjustment of the mA and/or kV according to patient size, or iterative reconstruction technique. COMPARISON: None. FINDINGS: No fracture is identified. Ali gnment is significant for multilevel subtle grade 1 spondylolisthe sis. Multilevel moderate degenerative disc disease is present wit h areas of hyperattenuation within the L1-L2, L2-L3, L3-L4, and L4-L 5 disc spaces. Multilevel mild facet arthropathy. Moderate bilateral fa cet arthropathy at L5-S1. Disc bulging and ossification of the posterio r longitudinal ligament contribute to mild spinal canal stenosis at multiple levels. Moderate spinal canal stenosis at L3-L4. Bilatera l lateral recess narrowing at L3-L4, L4-L5, and L5-S1. Mild foraminal stenoses at multiple levels. Sfhl-hr-kwuigube bilateral foraminal braeden noses at L2-L3. Moderate right and severe left foraminal stenoses at L3 -L4. Severe bilateral foraminal stenoses at L4-L5. Mild right and moderate left foraminal stenoses at L5-S1. Scattered vascular calcifications. Bilat eral sacroiliac joint degenerative change. Spinal cord stimula tor device with leads entering the spinal canal at T11-T12 and T12-L1 e xtending superiorly beyond the superior field of view. IMPRESSION: 1. Degenerative change with multiple braeden noses as detailed. 2. Spinal cord stimulator device. REJI FINCH MD SYSTEM ID: [id number] Ortiz Perez MD IMG CT ORDERABLES documented in this encounter Visit Diagnoses Diagnosis Degeneration of lumbar intervertebral di sc Degeneration of lumbar or lumbosacral in tervertebral disc Chronic bilateral low back pain with mariel ateral sciatica documented in this encounter Care Teams Judicial Assistant Relationship Specialty Start Date End Date Zhang Masterson PCP - General Family Medicine 05/19/[address] [place] [address] Tony Gray MD Referring Physician Orthopedics 10/01/14 Conner Harper MD MD Orthopedics 10/01/[address] [place] [address] Marivel Cavazos, Assigned Surgical Provider 1 MATT 1600 [facility] [address] [place] [address] documented as of this encounter
--- OUTSIDE RECORDS SUMMARY | 2022-01-27 10:15 | XMS_ITS | Encounter Summary ---
:1955 Author Organization [place] Address [address] [facility] [place] [address] Care Team Providers Name Role Phone Tony Gray MD Unavailable Conner Harper MD Unavailable Marivel Cavazos PA-C Unavailable Zhang Masterson Primary Care Provider Encounter Details Date Type Department Care Team Description 10/15/2021 Travel Social History Tobacco Use Types Packs/Day [...] Pain & [place] [address] [facility] [place] [address] (Wo rk) documented as of this encounter Visit Diagnoses Not on filedocumented in this encounter Care Teams Line Tender Relationship Specialty Start Date End Date Zhang Masterson PCP - General Family Medicine 05/19/[address] [place] [address] [place] [address] Tony Gray MD Referring Physician Orthopedics 10/01/14 Conner Harper MD MD Orthopedics 10/01/[address] [place], [place] [address] Marivel Cavazos, Assigned Surgical Provider 1 PAAleida 1600 [facility] [address] [place], [place] [phone] documented as of this encounter
--- OUTSIDE RECORDS SUMMARY | 2022-01-27 10:15 | XMS_ITS | Encounter Summary ---
:1955 Author Organization [place] Address [address] [place] [address] Care Team Providers Name Role Phone Tony Gray MD Unavailable Conner Harper MD Unavailable Marivel Cavazos PA-C Unavailable Zhang Masterson Primary Care Provider Encounter Details Date Type Department Care Team Description 06/07/2021 Telephone [facility] Marivel Cavazos, Eric GUTIERREZ 1600 [facility] 1600 [facility] [address] [place] [address] [place] [address] (Wo rk) Social History Tobacco Use Types Packs/Day Years Used Date Former Smoker Cigarettes Smokeless Tobacco: Never Used Alcohol Use Standard Drinks/Week Comments Never 0 (1 standard drink = 0.6 oz pure alcoho l) Sex Assigned at Date Recorded Not on file COVID-19 Exposure Response Date Recorded In the last month, have you been in contact with No / Unsure 05/19/2021 9:52 AM NURSE MIDWIFE someone who was confirmed or suspected to have Coronavirus / COVID-19? documented as of this encounter Miscellaneous Notes Telephone Encounter - Marivel Cavazos PA-C - 06/08/2021 8:56 AM NURSE MIDWIFE Completed this morning, placed in fax bin. E MIDWIFE Telephone Encounter - Declan Goff - 06/07/2021 11:51 AM CST Pharmacy left voice message to follow up on forms faxed to the clinic. Asked provider to complete forms or call to give information. E MIDWIFE documented in this encounter Plan of Treatment Upcoming Encounters Date Type Specialty Care Team Description 02/17/2022 Office Visit Pain & [place] [address] [place], [place] [address] (Wo rk) documented as of this encounter Visit Diagnoses Not on filedocumented in this encounter Care Teams Special Education Preschool Teacher Relationship Specialty Start Date End Date Zhang Masterson PCP - General Family Medicine 05/19/[address] [place] [address] Tony Gray MD Referring Physician Orthopedics 10/01/14 Conner Harper MD MD Orthopedics 10/01/[address] [place] [address] Marivel Cavazos, Assigned Surgical Provider 1 MATT [address] [facility] [address] [place] [address] documented as of this encounter
--- OUTSIDE RECORDS SUMMARY | 2022-01-27 10:15 | XMS_ITS | Encounter Summary ---
:1955 Author Organization [place] Address [address] [place] [address] Care Team Providers Name Role Phone Tony Gray MD Unavailable Conner Harper MD Unavailable Marivel Cavazos PA-C Unavailable Zhang Masterson Primary Care Provider Reason for Visit Reason Comments Pain Work Comp Encounter Details Date Type Department Care Team Description 10/15/2021 Office Visit [facility] Ortiz Perez neration of lumbar intervertebral disc (Primary Dx); Pain Management MD Micheal Chronic bilateral low back pain with mariel ateral sciatica; [place] [address] [place] Lumbar radiculopathy; [address] [place], [place] [address] Chronic, continuous use of opioids; Drive Chronic pain syndrome [address] [place] [address] Social History Tobacco Use Types [...] Sign Reading Time Taken Comments Blood Pressure 138/61 10/15/2021 9:58 AM CDT Pulse 74 10/15/2021 9:58 AM CDT irregular Temperature - - Respiratory Rate - - Oxygen Saturation 98% 10/15/2021 9:58 AM CDT Inhaled Oxygen Concentration - - Weight 96.2 kg (212 lb 1.6 oz) 10/15/2021 9:58 AM CDT Height - - Body Mass Index 32.25 02/04/2021 11:07 AM CDT documented in this encounter Patient Instructions Patient InstructionsOrtiz Perez MD - 10/15/2021 9:52 AM CDT Call and let us know how many norco tablets you have left. Your next refill would be due on 10/19/21 if you've been taking 5 tabs/day. Increase methocarbamol to 750mg tablets and see if this helps. You can take this twice daily as needed for now. We'll call the neurology clinic and [facility] to have you set up for the EMG and to have adjustments made to your stimulator device. I'll call once I have your lumbar CT results. Once I review this and the EMG we will have a better idea about what is causing the pain radiating into your legs. Take care, Ortiz Perez, [facility] Clinic Number: [phone] Call with any questions about your care and for scheduling assistance. Calls are returned Monday through Monday between 8 AM and 4:30 PM. We usually get back to you within2 business days depending on the issue/request. If we are prescribing your medications: For opioid medication refills, call the clinic or send a Sansant message 7 days in advance. Please include: Name of requested medication Name of the pharmacy. For non-opioid medications, call your pharmacy directly to request a refill. Please allow 3-4 days to be processed. Per [place] State Law: All controlled substance prescriptions must [...] encounter Progress Notes Ortiz Perez MD - 10/15/2021 10:00 AM CDT [facility] Date of visit: 10/15/21 Assessment: Tremaine Plunkett is a 66 year old with past medical history including: HTN, PVCs, diastolic heart failure, Obstructive and Central sleep apnea, Obesity who presents for transfer of care from [facility]. They are being seen for the following chronic pain conditions: ?? 1. Chronic low back pain with intermittent lumbar radiculopathy: Work related injury from 2001. Theyreport ongoing chronic low back pain and intermittent bilateral radicular pain in an L4/5 distribution. Symptoms have been gradually worsening in the past 2 years. They did have a nevro SCS placed by Dr. Loyola in 2019 which is currently providing minimal relief. Unfortunately they failed conservative medical management and they have been taking norco 10-325 two tabs BID-TID for the past couple years. During this time they have tried other medications including belbuca with limited relief. Exam findings today suggestive of lumbar facet arthropathy as contributing to their pain. CT ordered to evaluate further, it has been years since any advanced spine imaging was completed. ?? 2. Chronic opioid use: Currently tremaine [...] Lumbar CT scheduled. 5. Medication Management: 1. [place] 10-325, 4-5 tabs daily, #150/month. Will increase back to 150 with next refill. They will call and let us know how man tablets are remaining from the last refill. 2. Acetaminophen 500mg QID. 3. Methocarbamol 750mg TID prn 4. Urine toxicology screen - 05/20/21 5. Opioid agreement - 09/23/21 6. Further procedures recommended: none at this time. 7. Referrals: EMG referral placed to evaluate their radiculopathy (acute vs chronic), will have [facility] neurology call back to schedule. 8. Follow up: will call with CT results. ?? Ortiz Perez, [facility] Chief complaint: Chief Complaint Patient presents with ??? Pain ??? Work Comp Interval history: Tremaine Plunkett is a 65 year old male last seen by me on 08/25/2021. Since his last visit, Tremaine Plunkett reports: - EMG has been approved but he has had difficulty scheduling this. -They are scheduled for a lumbar CT. -Their stimulator isn't helping much, when he turns up the stimulator it causes shocks. -Does have improvement with ice and using a tens unit. -Has been taking norco 5 tabs/day last few weeks, back pain has been worse with the weather changes.He isn't sure how many tablets he has left currently. Pain scores: Pain intensity on average is 8 on a scale of 0-10. Pain Treatments: 1. Medications: Current pain medications: -Methocarbamol 500mg BID prn -Yakima 10-325mg 4-5 tabs daily - 40-50 MME -Tylenol 1-2 tabs daily as needed [...] 6 hours between doses. OK to fill 09/20/21 and start 09/21/21 140 tablet 0 ??? hydrOXYzine (VISTARIL) 25 MG [...] new Mood: poor Physical Exam: Blood pressure 138/61, pulse 74, weight 96.2 kg (212 lb 1.6 oz), SpO2 98 %. General: well developed, NAD Gait: Antalgic MSK exam: Bilateral paraspinal tenderness in lumbar spine at L4-S1. Pain with ext/rot bilaterally. Lumbar ROM is moderately reduced in all planes. Strength is 5/5 and symmetric in the legs. BILLING TIME DOCUMENTATION: The total TIME spent on this patient on the date of the encounter/appointment was 30 minutes. TOTAL TIME includes: Time spent preparing to see the patient (reviewing records and tests) Time spent face to face (or over the phone) with the patient Time spent ordering tests, medications, procedures and referrals Time spent Referring and communicating with other healthcare professionals Time spent documenting clinical information in [facility] DO Liliana Ayala Pain Management documented in this encounter Plan of Treatment Upcoming Encounters Date Type Specialty Care Team Description 02/17/2022 Office Visit Pain & [place] [address] [place], [place] [address] (Wo rk) documented as of this encounter Visit Diagnoses Diagnosis Degeneration of lumbar intervertebral di sc - Primary Degeneration of lumbar or lumbosacral in tervertebral disc Chronic bilateral low back pain with mariel ateral sciatica Lumbar radiculopathy Thoracic or lumbosacral neuritis or radi culitis, unspecified Chronic, continuous use of opioids Opioid type dependence, continuous Chronic pain syndrome documented in this encounter Care Teams Harp Repairer Relationship Specialty Start Date End Date Zhang Masterson PCP - General Family Medicine 05/19/[address] [place] [address] Tony Gray MD Referring Physician Orthopedics 10/01/14 Conner Harper MD MD Orthopedics 10/01/[address] [place], [place] [address] Marivel Cavazos, Assigned Surgical Provider 1 PA-C [address] [facility] [address] [place], [place] [phone] documented as of this encounter
--- OUTSIDE RECORDS SUMMARY | 2022-01-27 10:15 | XMS_ITS | Encounter Summary ---
:1955 Author Organization [place] Address [address] [place] [address] Care Team Providers Name Role Phone Tony Gray MD Unavailable Conner Harper MD Unavailable Marivel Cavazos PA-C Unavailable Zhang Masterson Primary Care Provider Encounter Details Date Type Department Care Team Description 08/25/2021 Telephone [facility] [place] [address] [facility] [address] [place] [address] [place] [address] [phone] Social History Tobacco Use Types Packs/Day Years [...] Encounter - Lauren Mcmillan RN - 10/18/2021 10:39 AM CDT Chart review: is scheduled 10/21/[address] Lauren KRAFT, RN Service Learning Coordinator [facility] Telephone Encounter - Lauren Mcmillan RN - 10/08/2021 12:57 PM CDT Called pt. Advised that I am unable to see if approved for Ct scan but provided imaing's number so he can be connected with whomever would handle imaging auth for . [facility] Neurology- Telephone Encounter - Tequila Charlton - 10/08/2021 10:08 AM CDT We don't have PA access for imaging. Tequila Charlton Farm Hel[facility] Telephone Encounter - Ortiz Perez MD - 10/07/2021 12:12 PM CDT Nursing: Please inform patient their EMG was approved, please provide phone number to [facility] neurology [place] to patient so they can call to schedule. Chief Of Harbor Patrol: Can we also check to see if their CT L-spine has been approved? DO Kary Campuzano [facility] Telephone Encounter - Mercedes Oneil - 10/07/2021 9:01 AM CDT On 10/07/2021, received fax from [employer] (Foreign Lewis, Technical Animal Control Specialist II, Central Complex) pertaining to prior auth. Fax stated the following Mr. Plunkett is approved to have his EMG completed. Also - in the future, if you have a specific treatment request, please fax the specific request to [phone] and we will review and respond accordingly. Placed fax in Scanning for EMR. Forwarding to medical staff as FYI. Mercedes Oneil Patient Etcher [facility] [place] Telephone Encounter - Rose Tee - 08/30/2021 12:37 PM CDT Phoned pt, informed of message below. Per Dr Perez. Rose Tee Farm Helper [facility] [place] Telephone Encounter - Ortiz Perez MD - 08/30/2021 10:57 AM CDT Please call patient and have them call radiology ([phone]) to schedule their CT. The radiology team will reach out to work-comp for the prior auth. DO Kary Campuzano [facility] Telephone Encounter - Zoe Tang - 08/27/2021 9:27 AM CST Routing to Rose as she now handles WC Zoe Harden [facility] POOL Telephone Encounter - Ortiz Perez MD - 08/26/2021 4:15 PM RN POOL Patient has work comp and stated they need to be contacted prior to any imaging being scheduled. Will route to zoe to see if they have any advice on this. DO Kary Campuzano [facility] POOL Telephone Encounter - Lauren Mcmillan RN - 08/26/2021 11:57 AM CST I believe that imaging department works on authorization for imaging once orders are placed. Will route to dental front office assistant to review for clarification. Called pt and discussed CSA. Mailed copy, waiting on return of signed copy Lauren KRAFT, RN Service Learning Coordinator [facility] POOL Telephone Encounter - Ortiz Perez MD - 08/25/2021 11:13 AM RN POOL Also routing to nursing to review CSA. Forgot to discuss this with patient today, they may need someclarification on why we're calling. DO Kary Campuzano [facility] [place] Telephone Encounter - Ortiz Perez MD - 08/25/2021 10:30 AM RN POOL Please reach out to Tremaine's insurance company to get approval for Lumbar CT scan. DO Kary Campuzano [facility] PO[place] documented in this encounter Plan of Treatment Upcoming Encounters Date Type Specialty Care Team Description 02/17/2022 Office Visit Pain & [place] [address] [place], [place] [address] (Wo rk) documented as of this encounter Visit Diagnoses Not on filedocumented in this encounter Care Teams Agricultural Equipment Sales Manager Relationship Specialty Start Date End Date Zhang Masterson PCP - General Family Medicine 05/19/[address] [place] [address] [place] [address] Tony Gray MD Referring Physician Orthopedics 10/01/14 Conner Harper MD MD Orthopedics 10/01/14 [address] [place] [address] Marivel Cavazos, Assigned Surgical Provider [address] [place] [address] [address] [place], [place] [id number] documented as of this encounter
--- OUTSIDE RECORDS SUMMARY | 2022-01-27 10:15 | XMS_ITS | Encounter Summary ---
:1955 Author Organization [place] Address [address] [place] [address] Care Team Providers Name Role Phone Tony Gray MD Unavailable Conner Harper MD Unavailable Marivel Cavazos PA-C Unavailable Zhang Masterson Primary Care Provider Reason for Visit Reason Onset Date Comments Opioid Refill 08/13/2021 HYDROcodone-acetamin ophzain (NORCO) 10-325 MG per tablet Refill Request 08/13/2021 hydrOXYzine (VISTARI L) 25 MG capsule-refill at pharmacy Encounter Details Date Type Department Care Team Description 08/13/[address] [facility] Ortiz Perez Opio id Refill Pain Management MD Micheal (HYDROcodone-acetamin [place] [id number] [place] [address] DR kauffman (NORCO) 10-325 [address] [place] [address] MG per tablet); [address] [place] [address] (hydrOXYzine [phone] (VISTARIL) 25 M G capsule-refill at pharmacy) Social History Tobacco Use Types Packs/Day Years Used Date Former Smoker Cigarettes Smokeless Tobacco: Never Used Alcohol Use Standard Drinks/Week Comments Never 0 (1 standard drink = 0.6 oz pure alcoho l) Sex Assigned at Date Recorded Not on file COVID-19 Exposure Response Date Recorded In the last month, have you been in contact with No / Unsure 07/14/2021 9:31 AM HOME CARE SPECIALIST someone who was confirmed or suspected to have Coronavirus / COVID-19? documented as of this encounter Miscellaneous Notes Telephone Encounter - Ortiz Perez MD - 08/19/2021 12:14 PM HOME CARE SPECIALIST Will discuss with patient at currently scheduled f/up. Ortiz Perez DO [facility] Pain Management CARE SPECIALIST Telephone Encounter - Paul Plunkett MD - 08/16/2021 9:35 AM HOME CARE SPECIALIST Unclear why hydroxyzine is being ordered. There was an order in Jun, and it had a refill Of note, this is not brought up at all in Dr. Perez's plan/note. I will have him advise, but in the meantime there should be a refill there. Script Eprescribed to pharmacy [place] Prescription Monitoring Program checked Sending to nursing due to above Signed Prescriptions: Disp Refills HYDROcodone-acetaminophen (NORCO) 10-325 M*150 ta*0 Sig: Take 1-2 tablets by mouth 3 times daily as needed for severe pain . Max of 5/day. Put 6 hours between doses. OK to fill 08/16/21 and start 08/18/21 Authorizing Provider: PAUL PLUNKETT MD [facility] Pain Management CARE SPECIALIST Telephone Encounter - Gi Irwin RN - 08/13/2021 1:17 PM HOME CARE SPECIALIST Routing to provider to review medication prepped per below HYDROcodone-acetaminophen (NORCO) 10-325 MG per tablet#150, Refill:0 Sig:Take 1-2 tablets by mouth 3 times daily as needed for severe pain - Oral Last picked up 07/19/21 with start on 07/20/21 Due: OK to fill 08/16/21 and start 08/18/21 Per last OV note 07/14/21: [place] 10-325, 5 tabs daily, #150/month. They will call and let us know howmany tablets they have from their prior prescription. Injured Workers [place] [address] Gi Andino RN Carpenter Ship [facility] CARE SPECIALIST Telephone Encounter - Jayna Mahajan CMA - 08/13/2021 10:54 AM CST Received call from patient requesting refill(s) for HYDROcodone-acetaminophen (NORCO) 10-325 MG per tablet Last dispensed from pharmacy on 07/19/21 hydrOXYzine (VISTARIL) 25 MG capsule Patient's last office/virtual visit by prescribing provider on 07/14/21 Next office/virtual appointment scheduled for 08/18/21 Last urine drug screen date 05/20/21 Current opioid agreement on file? Yes Date of opioid agreement: 05/19/21 E-prescribe to: [employer] WORK[employer] [address] Will route to nursing pool for review and preparation of prescription(s). CARE SPECIALIST Telephone Encounter - Cely Toscano - 08/13/2021 8:31 AM CST Reason for call: Medication If this is a refill request, has the caller requested the refill from the pharmacy already? No Will the patient be using a [facility]? [place] of the pharmacy and phone number for the current request: [employer] [address] Name of the medication requested: hydrOXYzine (VISTARIL) 25 MG capsule HYDROcodone-acetaminophen (NORCO) 10-325 MG per tablet Other request: none Phone number to reach patient: Cell number on file: Telephone Information: Best Time: anytime Can we leave a detailed message on this number? YES Travel screening: Not Applicable Cely Bustos Bobbin Cleaner Hand [facility] Pain Management CARE SPECIALIST documented in this encounter Plan of Treatment Upcoming Encounters Date Type Specialty Care Team Description 02/17/2022 Office Visit Pain & [place] [address] [place], [place] [address] (Wo rk) documented as of this encounter Visit Diagnoses Diagnosis Chronic pain syndrome documented in this encounter Care Teams Acid Operator Relationship Specialty Start Date End Date Zhang aMsterson PCP - General Family Medicine 05/19/[address] [place] [address] Tony Gray MD Referring Physician Orthopedics 10/01/14 Conner Harper MD MD Orthopedics 10/01/[address] [place], [place] [address] Marivel Cavazos, Assigned Surgical Provider 1 [address] [facility] [address] [place], [place] [phone] documented as of this encounter
--- OUTSIDE RECORDS SUMMARY | 2022-01-27 10:15 | XMS_ITS | Encounter Summary ---
:1955 Author Organization [place] Address [address] [place] [address] Care Team Providers Name Role Phone Tony Gray MD Unavailable Conner Harper MD Unavailable Marivel Cavazos PA-C Unavailable Zhang Masterson Primary Care Provider Encounter Details Date Type Department Care Team Description 08/25/2021 Travel Social History Tobacco Use Types Packs/Day Years Used Date Former Smoker Cigarettes Smokeless Tobacco: Never Used Alcohol Use Standard Drinks/Week Comments Never 0 (1 standard drink = 0.6 oz pure alcoho l) Sex Assigned at Date Recorded Not on file COVID-19 Exposure Response Date Recorded In the last month, have you been in contact with No / Unsure 08/25/2021 9:32 AM ENGINEERING PRODUCTION WORKER someone who was confirmed or suspected to have Coronavirus / COVID-19? documented as of this encounter Plan of Treatment Upcoming Encounters Date Type Specialty Care Team Description 02/17/2022 Office Visit [place] & [place] [address] [facility] [place] [address] (Wo rk) documented as of this encounter Visit Diagnoses Not on filedocumented in this encounter Care Teams Dirt Bike Mechanic Relationship Specialty Start Date End Date Zhang Masterson PCP - General Family Medicine 05/19/[address] [place] [address] Tony Gray MD Referring Physician Orthopedics 10/01/14 Conner Harper MD MD Orthopedics 10/01/[address] [place], [place] [address] Marivel Cavazos, Assigned Surgical Provider 1 MATT [address] [facility] [address] [place], [place] [phone] documented as of this encounter
--- OUTSIDE RECORDS SUMMARY | 2022-01-27 10:15 | XMS_ITS | Encounter Summary ---
:1955 Author Organization [place] Address [address] [place] [address] Care Team Providers Name Role Phone Tony Gray MD Unavailable Conner Harper MD Unavailable Marivel Cavazos PA-C Unavailable Zhang Masterson Primary Care Provider Reason for Referral Diagnostic Imaging CT Scan (Routine) - Closed Specialty Diagnoses / Procedures Referred By Contact Refer red To Contact Diagnoses Degeneration of lumbar intervertebral disc Chronic bilateral low back pain with bilateral sciatica Ortiz Perez Procedures CT Lumbar Spine w/o Contrast CT Lumbar Spine w/o Contrast MD Micheal [address] [place] [address] Referral ID Status Reason Start Date Expiration Date Visits Requ ested Visits Authorized [id number] Closed 08/25/2021 08/25/2022 1 1 SYSTEMS ANALYST Reason for Visit Reason Comments Pain Encounter Details Date Type Department Care Team Description 08/25/2021 Office Visit [facility] Ortiz Alejandra neration of lumbar intervertebral disc (Primary Dx); Pain Management MD Micheal Chronic bilateral low back pain with mariel ateral sciatica; [place] [address] [address] Chronic pain syndrome [address] [address] [place] [address] [place] [address] Social History Tobacco Use Types Packs/Day Years Used Date Former Smoker Cigarettes Smokeless Tobacco: Never Used Alcohol Use Standard Drinks/Week Comments Never 0 (1 standard drink = 0.6 oz pure alcoho l) Sex Assigned at Date Recorded Not on file COVID-19 Exposure Response Date Recorded In the last month, have you been in contact with No / Unsure 08/25/2021 9:32 AM LAB SYSTEMS ANALYST someone who was confirmed or suspected to have Coronavirus / COVID-19? documented as of this encounter Last Filed Vital Signs Vital Sign Reading Time Taken Comments Blood Pressure 127/56 08/25/2021 9:47 AM LAB SYSTEMS ANALYST Pulse 69 08/25/2021 9:47 AM LAB SYSTEMS ANALYST Temperature - - Respiratory Rate - - Oxygen Saturation 97% 08/25/2021 9:47 AM LAB SYSTEMS ANALYST Inhaled Oxygen Concentration - - Weight - - Height - - Body Mass Index - - documented in this encounter Patient Instructions Patient InstructionsBeatriz Mo - 08/25/2021 10:00 AM CST 1. You can continue Denver 10-325mg two tabs in the morning and two tabs at night. You can take an additional dose during the day as needed. 2. You can take Tylenol 500mg four times daily as need in addition to the above medication. 3. I ordered a lumbar CT and will have my clinic get insurance authorization for this. Once authorized we will call you and you can call [phone] to get this scheduled. 4. I'll call you with the CT results and we'll set you up for the lumbar medial branch blocks. Take care, Ortiz Perez DO [facility] Clinic Number: [phone] ??? Call with any questions about your care and for scheduling assistance. ??? Calls are returned Monday through Monday between 8 AM and 4:30 PM. We usually get back to you within 2 business days depending on the issue/request. If we are prescribing your medications: ?? For opioid medication refills, call the clinic or send a [employer] Agencyhart message 7 days in advance. Please include: ?? Name of requested medication ?? Name of the pharmacy. ?? For non-opioid medications, call your pharmacy directly to request a refill. Please allow 3-4 days to be processed. ?? Per [place] State Law: ?? All controlled substance prescriptions [...] may lead to dismissal from the clinic. SYSTEMS ANALYST documented in this encounter Progress Notes Ortiz Perez MD - 08/25/2021 10:00 AM CST [facility] Date of visit: 08/25/2021 Assessment: Tremaine Plunkett is a 65 year old with past medical history including: HTN, PVCs, diastolic heart failure, Obstructive and Central sleep apnea, Obesity who presents for transfer of care from [facility]. They are being seen for the [...] day. 4. Diagnostic Studies: 1. Lumbar CT ordered. Will have clinic get insurance auth prior to scheduling. 5. Medication Management: 1. Denver 10-325, 4-5 tabs daily, #150/month. Will gradually taper as tolerated, consider #140/month with next refill. 2. Acetaminophen 500mg QID. 3. Urine toxicology screen - 05/20/21 4. Opioid agreement - Will have nursing review. 6. Further procedures recommended: none at this time. 7. Referrals: EMG referral placed to evaluate their radiculopathy (acute vs chronic) but patient notinterested to complete due to workman's comp complications. 8. Follow up: 6 weeks. ?? Camilo Welch MD Pain Medicine Fellow [facility] Ortiz Perez DO [facility] Chief complaint: Chief Complaint Patient presents with ??? Pain Interval history: Tremaine Plunkett is a 65 year old male last seen by me on 07/14/21. Since his last visit, Tremaine Plunkett reports: - Has not been able to complete EMG as of yet due to workman's comp - they wouldn't go through the knife glazer so cannot schedule for now. - Denver is currently being taken as 2tabs in the morning and 2 tabs at night. They take an additional 1-2 tabs during the day depending on what his pain levels are. -At [facility] they performed an ablation for PVCs and his has noticed since then that he is not having apneic episodes. He does have itching from the norco - He is taking acetaminophen 500mg at noon and 500mg at night. Wondering if he can increase this to help reduce use of norco. Pain scores: Pain intensity on average is 5 on a scale of 0-10. Pain Treatments: 1. Medications: Current pain medications: -Methocarbamol 500mg BID prn -Denver 10-325mg 4-5 tabs daily - 40-50 MME [...] declining benefit years ago ? Side Effects: Itching from norco Medications: Current Outpatient Medications Medication Sig Dispense [...] OK to fill 08/16/21 and start 08/18/21 150 tablet 0 ??? hydrOXYzine (VISTARIL) 25 [...] were last seen? No Review of Systems: The 14 system ROS was reviewed from the intake questionnaire, and is positive for: back and leg pain Any bowel or bladder problems: none new Mood: poor Physical Exam: Blood pressure 127/56, pulse 69, SpO2 97 %. General: well developed, NAD Gait: Antalgic MSK exam: TTP bilateral paraspinals in lumbar spine at L4-S1. Pain with ext/rot bilaterally. Lumbar ROM is moderately reduced in all planes. I saw and examined the patient with the Pain Fellow/Resident. I have reviewed and agree with the resident's note and plan of care and made changes and corrections directly to the body of the note. TIME SPENT: BY FELLOW/RESIDENT ALONE 20 MIN BY MYSELF WITHOUT THE FELLOW/RESIDENT 20 MIN BILLING TIME DOCUMENTATION: The total TIME spent on this patient on the date of the encounter/appointment was 40 minutes. TOTAL TIME includes: Time spent preparing to see the patient (reviewing records and tests) Time spent face to face (or over the phone) with the patient Time spent ordering tests, medications, procedures and referrals Time spent Referring and communicating with other healthcare professionals Time spent documenting clinical information in [facility] DO Tahira Ayala Pain Management 08/25/2021 SYSTEMS ANALYST documented in this encounter Nursing Notes Beatriz Mo - 08/25/2021 10:00 AM CST PEG Score 05/19/2021 07/14/2021 08/25/2021 PEG Total Score 8.33 4 8 SYSTEMS ANALYST documented in this encounter Plan of Treatment Upcoming Encounters Date Type Specialty Care Team Description 02/17/2022 Office Visit Pain & [place] [address] [place], [place] [address] (Wo rk) documented as of this encounter Results CT Lumbar Spine w/o [...] device. ?? REJI FINCH MD SYSTEM ID: ??[id number] Narrative 10/21/2021 3:[address] LUMBAR [...] L5-S1. Mild foraminal stenoses at multiple levels. [id number] bilateral foraminal braeden noses at L2-L3. Moderate [...] L5-S1. Mild foraminal stenoses at multiple levels. [id number] bilateral foraminal braeden noses at L2-L3. Moderate [...] stimulator device. REJI FINCH MD SYSTEM ID: [id number] Ortiz Perez MD IMG CT ORDERABLES documented in this encounter Visit Diagnoses Diagnosis Degeneration of lumbar intervertebral di sc - Primary Degeneration of lumbar or lumbosacral in tervertebral disc Chronic bilateral low back pain with mariel ateral sciatica Chronic pain syndrome Degeneration of lumbar intervertebral di sc Degeneration of lumbar or lumbosacral in tervertebral disc Chronic bilateral low back pain with mariel ateral sciatica documented in this encounter Care Teams Senior Business Development Manager Relationship Specialty Start Date End Date AlejaZhang PCP - General Family Medicine 05/19/[address] [place] [address] Tony Gray MD Referring Physician Orthopedics 10/01/14 Conner Harper MD MD Orthopedics 10/01/[address] [place], [place] [address] Marivel Cavazos, Assigned Surgical Provider 1 [address] [facility] [address] [place], [place] [id number] documented as of this encounter
--- OUTSIDE RECORDS SUMMARY | 2022-01-27 10:15 | XMS_ITS | Encounter Summary ---
:1955 Author Organization [place] Address [address] [place] [address] Care Team Providers Name Role Phone Tony Gray MD Unavailable Conner Harper MD Unavailable Marivel Cavazos PA-C Unavailable Zhang Masterson Primary Care Provider Reason for Visit Reason Onset Date Comments Patient/info Update 07/14/2021 Encounter Details Date Type Department Care Team Description 07/14/[address] [facility] Ortiz Gill Patient/info [place] [address] [place] [address] [place] [address] [phone] Social History Tobacco Use Types Packs/Day Years Used Date Former Smoker Cigarettes Smokeless Tobacco: Never Used Alcohol Use Standard Drinks/Week Comments Never 0 (1 standard drink = 0.6 oz pure alcoho l) Sex Assigned at Date Recorded Not on file COVID-19 Exposure Response Date Recorded In the last month, have you been in contact with No / Unsure 07/14/2021 9:31 AM TANK WORKER someone who was confirmed or suspected to have Coronavirus / COVID-19? documented as of this encounter Miscellaneous Notes Telephone Encounter - Gi Irwin RN - 07/15/2021 11:19 AM TANK WORKER Will call and update pt on fill and start dates. Refill procedure reviewed. Appt note for CSA to be completed at 6 week follow-up made. Gi Andino RN Plant Engineer [facility] WORKER Telephone Encounter - Ortiz Perez MD - 07/15/2021 10:02 AM TANK WORKER At our appointment yesterday we agreed Tremaine would take 5 tabs daily max. The 32 tabs should last 6days, refill should be due around jul 20. I went ahead and ordered this refill to the [facility] pharmacy asthe patient requested. Ortiz Perez DO [facility] Pain Management WORKER Telephone Encounter - Gi Irwin RN - 07/15/2021 8:50 AM TANK WORKER Routing to provider to review message from pt Gi Andino RN Plant Engineer [facility] Pain [facility] WORKER Telephone Encounter - Cely Toscano - 07/14/2021 2:32 PM CST Patient calling to state he has 32 tablets of HYDROcodone-acetaminophen (NORCO) 10-325 MG per tablet. Cely Bustos Fringe Maker [facility] Pain Management WORKER documented in this encounter Plan of Treatment Upcoming Encounters Date Type Specialty Care Team Description 02/17/2022 Office Visit Pain & [place] [address] [place], [place] [address] (Wo rk) documented as of this encounter Visit Diagnoses Diagnosis Chronic pain syndrome documented in this encounter Care Teams Electrical Project Manager Relationship Specialty Start Date End Date BryanZhang amos PCP - General Family Medicine 05/19/[address] [place] [address] Tony Gray MD Referring Physician Orthopedics 10/01/14 Conner Harper MD MD Orthopedics 10/01/[address] [place] [address] Marivel Cavazos, Assigned Surgical Provider 1 [address] [facility] [address] [place] [address] documented as of this encounter
--- OUTSIDE RECORDS SUMMARY | 2022-01-27 10:15 | XMS_ITS | Encounter Summary ---
:1955 Author Organization [place] Address [address] [facility] [place] [address] Care Team Providers Name Role Phone Tony Gray MD Unavailable Conner Harper MD Unavailable Marivel Cavazos PA-C Unavailable Zhang Masterson Primary Care Provider Reason for Visit Reason Onset Date Comments Opioid Refill 09/17/2021 HYDROcodone-acetamin ophzain (NORCO) 10-325 MG per tablet Refill Request 09/17/2021 hydrOXYzine (VISTARI L) 25 MG capsule Encounter Details Date Type Department Care Team Description 09/17/2021 Telephone [place] Ortiz Perez Opio id Refill Pain Management MD Micheal (HYDROcodone-acetamin [place] [id number] [place] [address] DR kauffman (NORCO) [phone] [place] [address] MG per tablet); [address] [place] [address] (hydrOXYzine [phone] (VISTARIL) 25 M G capsule) Social History Tobacco Use Types Packs/Day Years Used Date Former Smoker Cigarettes Smokeless Tobacco: Never Used Alcohol Use Standard Drinks/Week Comments Never 0 (1 standard drink = 0.6 oz pure alcoho l) Sex Assigned at Date Recorded Not on file COVID-19 Exposure Response Date Recorded In the last month, have you been in contact with No / Unsure 08/25/2021 9:32 AM 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 documented as of this encounter Miscellaneous Notes Telephone Encounter - Ortiz Perez MD - 09/19/2021 4:49 PM CDT Hydroxyzine and norco refills approved, wraparound facilitator reviewed. Reduction in quantity to 140 tabs noted. Thanks, Ortiz Perez DO [facility] Pain Management Telephone Encounter - Lauren Mcmillan RN - 09/17/2021 11:53 AM CDT Received call back from. Reports that he is currently taking 4/day. Takes 2 in Am, 2 at night. Reports that is also taking tylenol in mid day. He has about 6 days/Monday remaining and ok for provider to review upon return. Please review max/day and quantity. Pt noted that he wanted to update provider- has an appointment to follow up at end of the month as is having trouble getting CT scan authorized by . Advised that he could try to follow up with seed corn production manager in [place]/imaging scheduling if he is not getting any answers on where things are at with the authorization process. Rombauer 10-325, #140, Refill:no Sig:. Max of 5/day. Put 6 hours between doses. OK to fill 09/20/21 and start 09/21/21 Last picked up 08/16/21 with start on 08/18/21 Due: 09/21/21 ?? Per last OV note 08/25/21: 1. Medication Management:?? 1. Rombauer 10-325,??4-5??tabs daily, #150/month.??Will gradually taper as tolerated, consider #140/month with next refill. Lauren KRAFT, RN Core Mounter [facility] Pain Management Telephone Encounter - Lauren Mcmillan RN - 09/17/2021 11:24 AM CDT Called pt and LM to call back to discuss how he is taking his medication. Appears to be working on gradual taper. See 08/25/21 encounter. Discussed CSA. Received on 09/14/21, waiting on scanning. Rombauer 10-325, #140, Refill:no Sig: Last picked up 08/16/21 with start on 08/18/21 Due: Per last OV note 08/25/21: 1. Medication Management:?? 1. Rombauer 10-325, 4-5 tabs daily, #150/month. Will gradually taper as tolerated, consider #140/month with next refill. Lauren KRAFT, RN Core Mounter [facility] Telephone Encounter - Jessi Santiago MA - 09/17/2021 10:24 AM CDT Received call from patient requesting refill(s) of HYDROcodone-acetaminophen (NORCO) 10-325 MG per tablet Last dispensed from pharmacy on 08/16/21 Vistaril last on 07/14/21, #90, 1 refill Patient's last office/virtual visit by prescribing provider on 08/25/21 Next office/virtual appointment scheduled for 10/15/21 Last urine drug screen date 05/20/21 Current opioid agreement on file (completed within the last year) Yes Date of opioid agreement: 05/19/21 E-prescribe to [facility] Will route to nursing pool for review and preparation of prescription(s). Telephone Encounter - Cely Toscano - 09/17/2021 8:55 AM CDT Reason for call: Medication If this is a refill request, has the caller requested the refill from the pharmacy already? No Will the patient be using a [facility]? [place] of the pharmacy and phone number for the current request: [facility] - [address] Name of the medication requested: HYDROcodone-acetaminophen (NORCO) 10-325 MG per tablet hydrOXYzine (VISTARIL) 25 MG capsule Other request: none Phone number to reach patient: Cell number on file: Telephone Information: Best Time: anytime Can we leave a detailed message on this number? 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
--- OUTSIDE RECORDS SUMMARY | 2022-01-27 10:16 | XMS_ITS | Encounter Summary ---
:1955 Author Organization [place] Address [address] [place] [address] Care Team Providers Name Role Phone Tony Gray MD Unavailable Conner Harper MD Unavailable Marlee Coles MD Primary Care Provider Encounter Details Date Type Department Care Team Description 11/15/2020 Records - [facility] Provider, Histor ical Social History Tobacco Use Types Packs/Day Years Used Date Never Assessed Sex Assigned at Date Recorded Not on file documented as of this encounter Plan of Treatment Upcoming Encounters Date Type Specialty Care Team Description 02/17/2022 Office Visit Pain & [place] [address] [place], [place] [address] (Wo rk) documented as of this encounter Procedures Procedure Name Priority Date/Time Associated Diagnosis Comme nts IR LUMBAR DISCOGRAM Routine 08/28/2006 12:00 AM R esults for this CDT procedure are i n the results section. documented in this encounter Results IR Lumbar Discogram (08/28/2006 12:00 AM CDT) Anatomical Region Laterality Modality Spine, SUBRAD MSK PROCEDURE Other Specimen (Source) Anatomical Location Collection Method / Collectio n Time Received Time / Laterality Volume Narrative 08/28/2006 12:00 AM CDT See Historical Hospital Medical Record f or documentation Procedure Note Provider, Historical - 11/15/2020Formatt ing of this note might be different from the original. See Historical Hospital Medical Record f or documentation Historical Provider IMG IR ORDERABLES documented in this encounter Visit Diagnoses Not on filedocumented in this encounter Care Teams Athletic Turf Worker Relationship Specialty Start Date End Date Marlee Coles MD PCP - General 02/10/15 05/18/21 [place] [address] [place] [address] Tony Gray MD Referring Physician Orthopedics 10/01/14 Conner Harper MD MD Orthopedics 10/01/[address] [place], [place] [address] documented as of this encounter
--- OUTSIDE RECORDS SUMMARY | 2022-01-27 10:16 | XMS_ITS | Encounter Summary ---
:1955 Author Organization [place] Address [address] [place] [address] Care Team Providers Name Role Phone Tony Gray MD Unavailable Conner Harper MD Unavailable Marlee Coles MD Primary Care Provider [phone] Encounter Details Date Type Department Care Team Description 01/14/2020 Hospital Encounter [facility] Codie Cavazos [facility] pain Pain Center Marivel Hernadez PA-C syndrome [address] [facility] [address] [facility] [address] [facility] [address] [id number] [place], [place] [phone] Social History Tobacco Use Types Packs/Day Years Used Date Never Assessed Sex Assigned at Date Recorded Not on file documented as of this encounter Medications at Time of Discharge Medication Sig Dispensed Refills Start Date End Date methocarbamol (ROBAXIN) Take by mouth 4 0 12/14/2021 500 MG tablet times daily as needed for muscle spasms Oxymorphone HCl ER 15 MG 0 02/04/2021 T12A traMADol (ULTRAM) 50 MG Take by mouth every 0 02/04/2021 tablet 6 hours as needed for moderate pain documented as of this encounter Progress Notes Marivel Cavazos PA-C - 01/14/2020 11:20 AM CDT PATIENT WAS A NO SHOW documented in this encounter Plan of Treatment Upcoming Encounters Date Type Specialty Care Team Description 02/17/2022 Office Visit Pain & [place] [address] [place], [place] [address] (Wo rk) documented as of this encounter Visit Diagnoses Diagnosis Chronic pain syndrome documented in this encounter Care Teams Clubhouse Attendant Relationship Specialty Start Date End Date Marlee Coles MD PCP - General 02/10/15 05/18/21 [place] [address] [address] [phone] Tony Gray MD Referring Physician Orthopedics 10/01/14 Conner Harper MD MD Orthopedics 10/01/[address] [place], [place] [phone] documented as of this encounter
--- OUTSIDE RECORDS SUMMARY | 2022-01-27 10:16 | XMS_ITS | Encounter Summary ---
:1955 Author Organization [place] Address [address] [facility] [place] [address] Care Team Providers Name Role Phone Tony Gray MD Unavailable Conner Harper MD Unavailable Marlee Coles MD Primary Care Provider [phone] Reason for Visit Reason Comments Back Pain Foot Pain Encounter Details Date Type Department Care Team Description 06/13/2019 Hospital Encounter [facility] Codie Cavazos [place], continuous use of opioids; Pain Center Marivel Hernadez PA-C Chronic pain syndrome; [address] [facility] [address] Degeneration of lumbar or lumbosacral intervertebral disc [address] [place], [place] [address] [id number] [place], [place] [phone] [facility] Social History Tobacco Use Types Packs/Day Years Used Date Never Assessed Sex Assigned at Date Recorded Not on file documented as of this encounter Last Filed Vital Signs Vital Sign Reading Time Taken Comments Blood Pressure - - Pulse - - Temperature - - Respiratory Rate - - Oxygen Saturation - - Inhaled Oxygen Concentration - - Weight 106.6 kg (235 lb) 06/13/2019 9:27 AM INDEXER Height 172.7 cm (5' 8) 06/13/2019 9:27 AM INDEXER Body Mass Index 35.73 06/13/2019 9:27 AM INDEXER documented in this encounter Medications at Time of Discharge [...] documented as of this encounter Progress Notes Ruba Barroso - 06/13/2019 9:40 AM CST Patient presents to the clinic today for a follow up with Marivel Cavazos PA-C regarding back pain. Patient describes their pain as sharp and pounding. Her/His function score is 8. Marivel Lewis PA-C - 06/13/2019 9:40 AM CST PAIN CENTER PROGRESS NOTE Subjective: Tremaine Plunkett is a 63 y.o. male who presents for evaluation of mid and low back pain. He has thoracic and lumbar degeneration status post work injury. He has had lumbar epidural steroid injection andlumbar radiofrequency which was effective for pain relief. He did not have relief from thoracic epidural steroid injection. Major issues: 1. Chronic, continuous use of opioids 2. Chronic pain syndrome 3. Lumbar Disc Degeneration Pain location and description: 8/10 constant sharp and pounding pain in low back, buttock, and bilateral legs. Function rated 8. Radiation of pain: Buttocks bilaterally, lower legs. Gait disturbance: None reported, denies recent falls. Denies AD. Exacerbating factors: walking, sitting, standing Alleviating factors: Pain medications, standing, ice Associated symptoms: Sleep disturbance due to pain waking on average 1-2. Numbness in bilateral hands and feet, legs. Denies weakness, bowel or bladder incontinence, fever/chills, unexplained weight loss. Functional Symptoms: Pain interferes with sleep, walking, ADLs, relationships/social, sexual health,mood (angry, frustrated). Adverse effects of medications: Denies constipation, drowsiness, dizziness, nausea/abdominal symptoms, rash. States some itching from Vicodin, hydroxyzine is very helpful and taking 25 mg three times aday. Current treatment efficacy: Fair. Vicodin 10/325 mg up to 2 tabs three times a day prn, methocarbamol 500 mg prn, Ibuprofen 400 mg two times a day prn. Current treatment compliance: Good; denies self-escalation of doses and no early refill requests. UDT appropriate. Keeps appointment follow-ups with pain center. Does walking up to 1 hour every day in [place] with his . Since the last Pain Center visit, the patient denies any use of anticoagulant medications. Denies any ED/urgent care visits. He had SCS trial and implant on 11/29/18. He saw Dr. Loyola on 01/30/19 and thoracic lead x-ray was negative. He has continued to report worsened pain since his implant and increased pain in bilateral legs, was advised by [facility] passenger service representative that he had settings too high which aggravated his symptoms. He states he did meet [facility] rep Cely and was able to get good coverage and stay below 5. He feels he has been lied to several times with communication with Francisco from [facility] and would prefer not to workwith him again. States he was called by rep 1.5 weeks after he traveled to [place], felt he had improvement after this programming but still having pain in his legs was advised to have settings between2-3. He states he hasn't had any further instruction from [facility] since that time but would like another reprogramming. He is in [place] until 06/16 and then flying back to [place]. He would like to see someone tomorrow; I called support line but they are closed today. States when he turns down the unit his leg pain does get better. States charging is fine and keeping on 24 hours. He states if no improvement in the next 2-3 months [address] meet with Dr. Loyola when he returns from [facility] to discuss explanting the device. ?? He states he has been taking up to 2 tabs Vicodin three times a day but not max dose of 6 every day and Ibuprofen 600 mg 2 tabs three times a day as needed He is not taking any tylenol. He is taking methocarbamol 500 mg before bedtime as too drowsy during the day, doesn't take every night as sometimesit keeps him awake and he does not need a refill today. He does request a refill of hydroxyzine as he takes that prn for itching from medications. Review of Systems Constitutional: Sleep disturbance due to pain. Denies fever, chills, night sweats, lethargy, weight loss, weight gain. Musculoskeletal: Positive for back pain, leg pain. Denies weakness, joint pain, joint swelling, recent falls. Gastrointestional: Denies difficulty swallowing, abdominal pain, change in appetite, constipation, nausea, vomiting, diarrhea, fecal incontinence. Genitourinary: Increased urinary frequency, attributes to drinking fluids (prostate check normal). Denies urinary incontinence, dysuria, hematuria, hesitancy, change in libido/erectile dysfunction. Neurologic: Numbness bilateral buttocks and legs to feet. Denies headaches, confusion, seizure, weakness, changes in balance, changes in speech. Psychiatric: Denies depression, anxiety, memory loss, psychoses, suicidal ideation, substance use/abuse. Objective: Vitals: 06/13/19 0927 BP: (!) 207/109 Pulse: 68 Resp: 18 Weight: (!) 235 lb (106.6 kg) Height: 5' 8 (1.727 m) PainSc: 8 Physical Exam Constitutional- General appearance: Well developed, abnormal, uncomfortable standing when provider enters room, overweight, and appearance reflects stated age. Presents alone. Psychiatric- Judgment and insight: Normal. Speech: Normal rhythm. Thought process: Normal. No abnormal thoughts reported. Alert & Oriented to person, place, and time. Recent and remote memory: Normal. Mood and affect: Normal. Observed mood: frustrated, concerned. Respiratory- Breathing is non-labored; normal rhythm and rate. Cardiovascular- Extremities warm and well perfused, no peripheral edema or varicosities. Dermatologic- Exposed skin CDI. Musculoskeletal- Gait and station: Slight antalgia. Gait evaluation demonstrates ambulating independently. Patient does have difficulty rising from a seated position. Opioid [place] Precautions: UDS/Swab- collected 06/13/19, results pending Consent - 12/13/18 Agreement- 12/13/18 Pharmacy- as documented CORE FILER- reviewed 06/13/19 as expected; last refill Vicodin on 04/23/19 which lasted longer than 28 daysas sometimes taking less than 6 tabs per day. Count- n/a Psychological evaluation n/a MME- up to 60 Pharmacogenetic testing n/a DIANE 03/26/19 Imaging: EXAM: XR THORACIC SPINE 2 VWS LOCATION: [facility] DATE/TIME: 01/30/2019 9:09 AM ?? INDICATION: lead check for SCS device - patient fell and having increased jolting pain COMPARISON: None. ?? FINDINGS: The superior spinal stimulator lead ends in the mid T8 vertebral body level. The more caudal spinal stimulator lead ends in the superior endplate of T9. ?? Normal sagittal alignment of the thoracolumbar spine. Vertebral body heights are maintained. Mild endplate spurring in the mid to lower thoracic spine and upper lumbar spine. ?? Surgical clips in the right upper quadrant. Assessment: Tremaine Plunkett is a 63 y.o. male seen in clinic today for chronic thoracic and lumbar degeneration,opioid dependence. He is reporting constant bilateral buttock numbness into lower legs and feet bilaterally. He did see Dr. Steinberg with updated imaging which demonstrates central L4-5 disc herniation encroaching on the L5 nerve roots and severe left L4-5 foraminal stenosis which has progressed since 2006 and moderate right L4-5 foraminal stenosis. He was advised no surgery. He has SCS implant and hasbeen doing poorly for pain management reporting increased paresthesias in bilateral LE; he is advised to schedule reprogramming again with [facility] for reprogramming. If this isn't successful, will consider bilateral LE EMG or updated MRI for diagnostic evaluation of symptoms in lower legs. He is advisedto continue Vicodin dosing as he is, also maximize daily Ibuprofen and Tylenol doses alternating andalso using ice. Plan: Continue Vicodin 10/325 mg 1-2 tablet every 4-6 hours as needed for pain. Max 6 tabs in 24 hours, #168 for 28 days. As your opioid dose remains stable, I will send electronic refills to the pharmacy for 2 subsequent months until your next appointment so you do not have to call our refill line. The fill dates for your medications are: 06/13/19 & 07/11/19 Check with your pharmacy that all prescriptions are on your profile. Call the pharmacy a week beforeyou want to fill the prescription as stock may vary and the pharmacy may need to order the medication for you. I reserve the right to cancel the electronic prescription at the pharmacy in between appointments and would contact you with an explanation if this were to occur. Continue Methocarbamol 500 mg at bedtime as needed - no refills needed You may continue over the counter ibuprofen with food up to 2400 mg daily or tylenol up to 3,000 mg daily (remember to calculate each Vicodin tablet has 325 mg of tylenol) for postoperative pain. I left a message with [facility] today about a reprogramming request - they are not open today and will start returning calls on 06/14. I did ask them about an option for [place] if they could not accommodate you tomorrow. Diagnostics: UDT/Blood collected today results are pending. Patient required a random Drug Test due to the need to comply with [facility] Policy Guidelines and CDC Guideline for the use of any controlled substances. Reasons for definitive testing include: -Identify specific medication(s) or drug(s) in a class (e.g. Benzodiazepines, barbiturates, opioids,antidepressants) -Definitive concentration of medication(s), drug(s), and/or metabolites needed to guide management -Identify non-prescribed medication or illicit drug use for ongoing safe prescribing of controlled substances -Identify substances that may present high risk for additive or synergistic interaction with prescription medication (e.g. Alcohol). Patient is either being considered for or taking a controlled substance. Unexpected findings will bediscussed and treatment decision may be adjusted. Testing is being implemented w/o bias related to age, race, gender, socioeconomic status or zoroastrianism affiliation. Follow-up in 10 weeks Marivel Cavazos PA-C [facility] [address] [facility] [place] [address] XER documented in this encounter Miscellaneous Notes Patient Instructions - HE - Marivel Cavazos PA-C - 06/13/2019 9:40 AM INDEXER Continue Vicodin 10/325 mg 1-2 tablet every 4-6 hours as needed for pain. Max 6 tabs in 24 hours, #168 for 28 days. As your opioid dose remains stable, I will send electronic refills to the pharmacy for 2 subsequent months until your next appointment so you do not have to call our refill line. The fill dates for your medications are: 06/13/19 & 07/11/19 Check with your pharmacy that all prescriptions are on your profile. Call the pharmacy a week beforeyou want to fill the prescription as stock may vary and the pharmacy may need to order the medication for you. I reserve the right to cancel the electronic prescription at the pharmacy in between appointments and would contact you with an explanation if this were to occur. Continue Methocarbamol 500 mg at bedtime as needed - no refills needed You may continue over the counter ibuprofen with food up to 2400 mg daily or tylenol up to 3,000 mg daily (remember to calculate each Vicodin tablet has 325 mg of tylenol) for postoperative pain. I left a message with [employer] today about a reprogramming request - they are not open today and will start returning calls on 06/14. I did ask them about an option for [place] if they could not accommodate you tomorrow. Diagnostics: UDT/Blood collected today results are pending. Patient required a random Drug Test due to the need to comply with [facility] Policy Guidelines and CDC Guideline for the use of any controlled substances. Reasons for definitive testing include: -Identify specific medication(s) or drug(s) in a class (e.g. Benzodiazepines, barbiturates, opioids,antidepressants) -Definitive concentration of medication(s), drug(s), and/or metabolites needed to guide management -Identify non-prescribed medication or illicit drug use for ongoing safe prescribing of controlled substances -Identify substances that may present high risk for additive or synergistic interaction with prescription medication (e.g. Alcohol). Patient is either being considered for or taking a controlled substance. Unexpected findings will bediscussed and treatment decision may be adjusted. Testing is being implemented w/o bias related to age, race, gender, socioeconomic status or zoroastrianism affiliation. Follow-up in 10 weeks Marivel XER documented in this encounter Plan of Treatment Upcoming Encounters Date Type Specialty Care Team Description 02/17/2022 Office Visit [place] [id number] [facility] [place] [address] (Wo rk) documented as of this encounter Procedures Procedure Name Priority Date/Time Associated Comments Diagnosis DRUG CONFIRMATION Routine 06/13/2019 12:25 Result s for this PANEL URINE WITH PM INDEXER procedure a re in CREAT the results section. documented in this encounter Results Drug Confirmation Panel Urine with Creat (06/13/2019 12:25 PM INDEXER) Component Value Ref Test Analysis Performed At [facility] Range Method Time Signature Methadone (cutoff Not 06/15/2019 [facility] 150 ng/mL) Detected 7:56 PM [facility] Propoxyphene Not 06/15/2019 [facility] (cutoff 300 ng/mL) Detected 7:56 PM INDEXER LABORATOR [facility] Tramadol (cutoff Not 06/15/2019 [facility] 100 ng/mL) Detected 7:56 PM [facility] Benzoylecgonine Not 06/15/2019 [facility] (cutoff 150 ng/mL) Detected 7:56 PM IN[facility] LABOR[facility] Barbiturates Not 06/15/2019 [facility] (cutoff 200 ng/mL) Detected 7:56 PM IN[facility] LABOR[facility] Ethyl Glucuronide Not 06/15/2019 [facility] (cutoff 500 ng/mL) Detected 7:56 PM IN[facility]ER LABORATOR [facility] Marijuana Not 06/15/2019 [facility] Metabolite (cutoff Detected 7:56 PM IN[facility]ER LABORATOR [facility] 20 ng/mL) PCP (cutoff 25 Not 06/15/2019 [facility] ng/mL) Detected 7:56 PM [facility] Carisoprodol Not 06/15/2019 [facility] (cut-off 100 Detected 7:56 PM [facility] ng/mL) Comment: The carisoprodol immunoassay has cross-r eactivity to carisoprodol and meprobamate. Codeine (cutoff 40 Not Detected 06/15/2019 7:56 PM [facility] ng/mL) INDEXER Morphine (cutoff 20 Not Detected 06/15/2019 7:56 P M [facility] ng/mL) INDEXER 6-acetylmorphine (cutoff Not Detected 06/15/2019 7 :56 PM [facility] 20 ng/mL) INDEXER Oxycodone (cutoff 40 Not Detected 06/15/2019 7:56 PM [facility] ng/mL) INDEXER Noroxycodone (cutoff 100 Not Detected 06/15/2019 7 :56 PM [facility] ng/mL) INDEXER Oxymorphone (cutoff 40 Not Detected 06/15/2019 7:5 6 PM [facility] ng/mL) INDEXER Noroxymorphone (cutoff Not Detected 06/15/2019 7:5 6 PM [facility] 100 ng/mL) INDEXER Hydrocodone (cutoff 40 Present 06/15/2019 7:56 P M [facility] ng/mL) INDEXER Norhydrocodone (cutoff Present 06/15/2019 7:56 P M [facility] 100 ng/mL) INDEXER Hydromorphone (cutoff 20 Not Detected 06/15/2019 7 :56 PM [facility] ng/mL) INDEXER Buprenorphine (cutoff 5 Not Detected 06/15/2019 7: 56 PM [facility] ng/mL) INDEXER Norbuprenorphine (cutoff Not Detected 06/15/2019 7 :56 PM [facility] 20 ng/mL) INDEXER Fentanyl (cutoff 2 Not Detected 06/15/2019 7:56 PM [facility] ng/mL) INDEXER Norfentanyl (cutoff 2 Not Detected 06/15/2019 7:56 PM [facility] ng/mL) INDEXER Meperidine metabolite Not Detected 06/15/2019 7:56 PM [facility] (cutoff 50 ng/mL) INDEXER Tapentadol (cutoff 100 Not Detected 06/15/2019 7:5 6 PM [facility] ng/mL) INDEXER Aswsiauifs-b-Tzfd Not Detected 06/15/2019 7:56 PM [facility] (cutoff 200 ng/mL) INDEXER Amphetamine (cutoff 50 Not Detected 06/15/2019 7:5 6 PM [facility] ng/mL) INDEXER Methamphetamine (cutoff Not Detected 06/15/2019 7: 56 PM [facility] 400 ng/mL) INDEXER MDMA- Ecstasy (cutoff Not Detected 06/15/2019 7:56 PM [facility] 200 ng/mL) INDEXER MDA (cutoff 200 ng/mL) Not Detected 06/15/2019 7:5 6 PM [facility] INDEXER MDEA- Vashti (cutoff 200 Not Detected 06/15/2019 7:56 PM [facility] ng/mL) INDEXER Phentermine (cutoff 100 Not Detected 06/15/2019 7: 56 PM [facility] ng/mL) INDEXER Methylphenidate (cutoff Not Detected 06/15/2019 7: 56 PM [facility] 100 ng/mL) INDEXER Alprazolam (cutoff 40 Not Detected 06/15/2019 7:56 PM [facility] ng/mL) INDEXER Curjq-YT-Ximxijrwit Not Detected 06/15/2019 7:56 P M [facility] (cutoff 20 ng/mL) INDEXER Clonazepam (cutoff 20 Not Detected 06/15/2019 7:56 PM [facility] ng/mL) INDEXER 7-Aminoclonazepam Not Detected 06/15/2019 7:56 PM [facility] (cutoff 40 ng/mL) INDEXER Diazepam (cutoff 50 Not Detected 06/15/2019 7:56 P M [facility] ng/mL) INDEXER Nordiazepam (cutoff 50 Not Detected 06/15/2019 7:5 6 PM [facility] ng/mL) INDEXER Oxazepam (cutoff 50 Not Detected 06/15/2019 7:56 P M [facility] ng/mL) INDEXER Temazepam (cutoff 50 Not Detected 06/15/2019 7:56 PM [facility] ng/mL) INDEXER Lorazepam (cutoff 60 Not Detected 06/15/2019 7:56 PM [facility] ng/mL) INDEXER Midazolam (cutoff 20 Not Detected 06/15/2019 7:56 PM [facility] ng/mL) INDEXER Zolpidem (cutoff 20 Not Detected 06/15/2019 7:56 P M [facility] ng/mL) INDEXER Creatinine, Urine 41.7 20.0 - 06/15/2019 7:56 PM [facility] 400.0 INDEXER mg/dL Pain Management Drug See Below 06/15/2019 7:56 PM [facility] Panel INDEXER Comment: Methodology: Qualitative Enzyme Immunoas say and Qualitative Liquid Chromatography-Time of Flight-Mass Spect rometry or Tandem Mass Spectrometry, Quantitative Spectrophotom etry The absence of expected drug(s) and/or d rug metabolite(s) may indicate non-compliance, inappropriate t iming of specimen collection relative to drug administrati on, poor drug absorption, diluted/adulterated urine, or limitation s of testing. The concentration must be greater than or eq ual to the cutoff to be reported as present. ??If specific drug concentrations are required, contact the laboratory within two weeks of specimen collection to request quantification by a second analytical technique. Interpretive questions should be directed to the laboratory. Results based on immunoassay detection t hat do not match clinical expectations should be interpreted with caution. Confirmatory t esting by mass spectrometry for immunoassay-based resul ts is available, if ordered within two weeks of specimen col lection. Additional charges apply. For medical purposes only; not valid for forensic use. This test was developed and its performa nce characteristics determined by [facility]. The U.[place] . Food and Drug Administration has not approved or clear ed this test; however, FDA clearance or approval is not currently r equired for clinical use. The results are not intended to be used as the sole means for clinical diagnosis or patient management decisions. EER Pain Mgt Drug Chew, [place] See Note 06/15/2019 7 :56 PM INDEXER [employer]/EMITU Comment: Access [email or web address] [email or web address] Report using either link below: -Direct access: [email or web address] -Enter Username, Password: [email or web address] Username: [email or web address] Password: [email or web address] Performed by [facility], [address] [place] [id number] [email or web address], Da Thakur MD, Lab. Director Specimen Anatomical Collection Method Collection Time Receive d Time (Source) Location / / Volume Laterality Urine specimen Non-blood 06/13/2019 12:25 9 9:46 (specimen) Collection / PM INDEXER PM INDEXER Unknown Narrative LS [facility] - 06/15/2019 7:56 PM INDEXER Marivel Cavazos PA-C LAB - URINE ORDERABLES Performing Organization Address City/State/ZIP Code Phon e Number [employer] [place], [place] [phone] [place] [phone] [facility] [address] [place] [phone] [employer] [address] [place] [phone], [facility] documented in this encounter Visit Diagnoses Diagnosis Chronic, continuous use of opioids Opioid type dependence, continuous Chronic pain syndrome Degeneration of lumbar or lumbosacral in tervertebral disc documented in this encounter Care Teams Job Site Supervisor Relationship Specialty Start Date End Date Marlee Coles MD PCP - General 02/10/15 05/18/21 [facility] [address] [address] [address] Tony Gray MD Referring Physician Orthopedics 10/01/14 Conner Harper MD MD Orthopedics 10/01/14 Formerly named [facility] [place], [place] [id number] [place] [address] documented as of this encounter
--- OUTSIDE RECORDS SUMMARY | 2022-01-27 10:16 | XMS_ITS | Encounter Summary ---
:1955 Author Organization [place] Address [address] [place] [address] Care Team Providers Name Role Phone Tony Gray MD Unavailable Conner Harper MD Unavailable Marlee Coles MD Primary Care Provider [phone] Reason for Visit Reason Comments Back Pain Encounter Details Date Type Department Care Team Description 11/11/2020 Hospital Encounter [facility] Codie Cavazos [place] pain syndrome; Pain Center Marivel Hernadez PA-C Degeneration of lumbar or lumbosacral in tervertebral disc; [address] [place] Lumbar radic ulopathy; [address] Chronic, continuous use of opioids [place], [place] [address] [id number] [place], [place] [phone] [facility] Social History Tobacco Use Types Packs/Day Years Used Date Never Assessed Sex Assigned at Date Recorded Not on file documented as of this encounter Last Filed Vital Signs Vital Sign Reading Time Taken Comments Blood Pressure - - Pulse - - Temperature - - Respiratory Rate - - Oxygen Saturation - - Inhaled Oxygen Concentration - - Weight 106.6 kg (235 lb) 11/11/2020 9:42 AM CDT Height 172.7 cm (5' 8) 11/11/2020 9:42 AM CDT Body Mass Index 35.73 11/11/2020 9:42 AM CDT documented in this encounter Medications at Time of Discharge Medication Sig Dispensed Refills Start Date End Date hydrOXYzine (VISTARIL) 25 Take 25 mg by mouth 0 0 11/11/2020 02/04/2021 MG capsule methocarbamol (ROBAXIN) Take by mouth 4 0 12/14/2021 500 MG tablet times daily as needed for muscle spasms Oxymorphone HCl ER 15 MG 0 02/04/2021 T12A traMADol (ULTRAM) 50 MG Take by mouth every 0 02/04/2021 tablet 6 hours as needed for moderate pain documented as of this encounter Progress Notes Latisha Bautista - 11/11/2020 9:40 AM CDT Patient presents to the clinic today for a follow up with Marivel Cavazos PA-C. ?? Pain score: 6 What does your pain feel like: constant, sharp, shooting, radiating, numbness Does the pain interfere with: Work: yes Walking/distance: yes Sleep: yes Daily activities: yes Relationships/social life: yes Mood: yes F= 8 Marivel Cavazos PA-C - 11/11/2020 9:40 AM CDT PAIN CENTER PROGRESS NOTE Subjective: Tremaine Plunkett is a 65 y.o. male who presents for evaluation of mid and low back pain. He has thoracic and lumbar degeneration status post work injury. He has had lumbar epidural steroid injection andlumbar radiofrequency which was effective for pain relief. He did not have relief from thoracic epidural steroid injection. He has a Nevro SCS implant. Major issues: 1. Lumbar Disc Degeneration 2. Chronic pain syndrome 3. Lumbar radiculopathy 4. 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 Gait disturbance: None reported, denies recent falls. Denies AD. Exacerbating factors: walking, sitting, standing Alleviating factors: Pain medications, rest, ice Associated symptoms: Sleep disturbance due to pain. Numbness in bilateral hands and feet, legs. Denies weakness, bowel or bladder incontinence, fever/chills, unexplained weight loss. Functional Symptoms: See ENVIRONMENTAL ENGINEERING PROFESSOR note Adverse effects of medications: Denies constipation, drowsiness, dizziness, nausea/abdominal symptoms, itching, headache. Current treatment efficacy: Poor. Not having pain control with Belbuca yet. Current treatment compliance: Good; denies self-escalation of doses and no early refill requests. UDT appropriate. Keeps appointment follow-ups with pain center. Purchased stationary bike uses 15-30 every morning - better tolerated than walking. Since last visit, he saw pad extraction tender, cannot recall name of provider/office. He states he was prescribed a prednisone taper and took 2 biopsies from left arm - getting results next week. Topical cream two times a day OTC for itch and dry skin which is helping. No new outbreaks, states itching has improved and he is taking hydroxyzine 25 mg two times a day. He is not taking benadryl. States the Belbuca film dosing 150 mcg every 12 hours not getting much relief for pain. He states heis more drowsy but usually doesn't nap during daytime unless he is reading or doing something sedentary. He states sleep at night is iffy because of pain. Denies constipation, nausea, itching, headaches, dizziness. Taking Tylenol and Ibuprofen three times a day. He states he would be interested in increasing or resuming Vicodin as no one as been able to link his rash to the Vicodin dose specifically, was told by pharmacist it could have been a reaction to the filler used in manufacturing. He is meeting with [facility] today for SCS recommendations, states he will try one more time but then would like it explanted if no improvement. He states it is not charging well as when he holds it on he has to be at a certain spot or doesn't charge. He can charge to full battery but taking 2 hours. He states he isn't sure if it is helpful but pain is not at 10/10 so must be helping somewhat. He is keeping it on all of the time. He denies paresthesias, not as many nettie horses but continues to have numbness. He is using 2-4 amplitude and doesn't go higher. We have discussed updating lumbar MRI or EMG for increased pain symptoms. Sleep study - has not followed through yet. Review of Systems Constitutional: Sleep disturbance due to pain, itching. Denies fever, chills, night sweats, lethargy, weight loss, weight gain. Musculoskeletal: Positive for mid and lower back pain, leg pain. Denies weakness, joint swelling, recent falls. Gastrointestional: Denies difficulty swallowing, abdominal pain, change in appetite, nausea, vomiting, diarrhea, fecal incontinence. Genitourinary: Denies urinary incontinence, dysuria, hematuria, hesitancy, change in libido/erectiledysfunction. Neurologic: Numbness bilateral buttocks and legs to feet. Denies headaches, confusion, seizure, weakness, changes in balance, changes in speech. Psychiatric: Denies depression, anxiety, memory loss, psychoses, suicidal ideation, substance use/abuse. Objective: Vitals: 11/11/20 0942 BP: (!) 153/1 Pulse: 60 Resp: 16 Physical Exam Constitutional- General appearance: Normal. Well developed, comfortable able to sit for entire visit, overweight, and appearance reflects stated age. No acute distress or pain behaviors noted. Presentsalone today. Psychiatric- Judgment and insight: Normal. Speech: Normal rhythm. Thought process: Normal. No abnormal thoughts reported. Alert & Oriented to person, place, and time. Recent and remote memory: Normal. Observed mood: appropriate Respiratory- Breathing is non-labored; normal rhythm and rate. Dermatologic- Exposed skin is healing sores on arms and legs. Musculoskeletal- Gait and station: Ambulates independently with normal gait. Opioid [place] Precautions: UDT- 06/10/20, results as expected Consent - 04/01/20 Agreement- 04/01/20 Pharmacy- as documented MEAT STOCKER- reviewed 11/11/2020 as expected Count- n/a Psychological evaluation n/a MME- buprenorphine Pharmacogenetic testing n/a Imaging: EXAM: XR THORACIC SPINE 2 VWS LOCATION: [facility] DATE/TIME: 01/30/2019 9:09 AM ?? [...] upper quadrant. Assessment: Tremaine Plunkett is a 65 y.o. male with visit today for chronic thoracic and lumbar degeneration, opioid dependence. He is reporting constant bilateral buttock numbness into lower legs and feet bilaterally. He did see Dr. Steinberg with updated imaging which demonstrates central L4-5 disc herniation encroaching on the L5 nerve roots and severe left L4-5 foraminal stenosis which has progressed since 2006 and moderate right L4-5 foraminal stenosis. He was advised no surgery. He has SCS implant. Have discussed bilateral LE EMG or updated MRI for diagnostic evaluation of symptoms as needed. He has recentlyhad increase in pain secondary to rash/allergic reaction with presumption to Vicodin or one of his oral medications and was advised to stop taking. Has not had any new rash outbreak; is following derm awaiting the biopsy results. He started low dose Belbuca with good tolerability but no pain control, discuss titrating dose as tolerated. May consider adding in Vicodin for breakthrough pain if no further concerns with rash/itching, will reassess in 4 weeks. We discuss other opioid allergies/failures; I advised medical cannabis trial for pain, patient is hesitant at this time. Previously failed neuropathic medications including Gabapentin, lyrica, duloxetine, TCAs, and lamictal. Advised to use NSAIDSwith caution per cardiology and max dosing of APAP. Plan: Belbuca increase to 300 mcg every 12 hours x 2 weeks, then 450 mcg every 12 hours x 2 weeks. Monitorfor side effects, call nurse line with any concerns. Will consider adding in Vicodin slowly next visit if no new findings with derm and pain is not adequately controlled with Belbuca. Ok to take hydroxyzine 25 mg 1 tab two times a day as needed for itching. 90 day refill sent Ok to take Ibuprofen 600 mg four times a day as needed for pain with food and alternate with Tylenol1,000 mg 3 times a day - refills sent Continue use of SCS - met with Ayse today Will consider medical cannabis trial if needed for pain, no enrollment yet. Keep follow-up as scheduled with dermatology for biopsy results - please sign a release of information so we can get a copy of the office notes faxed here #[phone] Follow-up in 4 weeks with Marivel in office Marivel Cavazos PA-C [facility] [address] [place] [address] 20 minutes spent on the date of the encounter doing chart review, history and exam, documentation, and further activities. documented in this encounter Miscellaneous Notes Patient Instructions - HE - Marivel Cavazos PA-C - 11/11/2020 9:40 AM CDT Belbuca increase to 300 mcg every 12 hours x 2 weeks, then 450 mcg every 12 hours. Monitor for side effects, call nurse line with any concerns. Will consider adding in Vicodin slowly next visit if no new findings with derm and pain is not adequately controlled with Belbuca. Ok to take hydroxyzine 25 mg 1 tab two times a day as needed for itching. Ok to take Ibuprofen 600 mg four times a day as needed for pain with food and alternate with Tylenol1,000 mg 3 times a day Continue use of SCS - met with Ayse today Will consider medical cannabis trial if needed for pain, no enrollment yet. Keep follow-up as scheduled with dermatology for biopsy results - please sign a release of information so we can get a copy of the office notes faxed here #[phone] Follow-up in 4 weeks with Marivel in office documented in this encounter Plan of Treatment Upcoming Encounters Date Type Specialty Care Team Description 02/17/2022 Office Visit Pain & [place] [address] [place], [place] [address] (Wo rk) documented as of this encounter Visit Diagnoses Diagnosis Chronic pain syndrome Degeneration of lumbar or lumbosacral in tervertebral disc Lumbar radiculopathy Thoracic or lumbosacral neuritis or radi culitis, unspecified Chronic, continuous use of opioids Opioid type dependence, continuous documented in this encounter Care Teams Promotions Director Relationship Specialty Start Date End Date Marlee Coles MD PCP - General 02/10/15 05/18/21 [place] [address] [address] [place], [place] [address] Tony Gray MD Referring Physician Orthopedics 10/01/14 Conner Harper MD MD Orthopedics 10/01/14 [facility] [place], [place] [id number] [place] [address] documented as of this encounter
--- OUTSIDE RECORDS SUMMARY | 2022-01-27 10:16 | XMS_ITS | Encounter Summary ---
:1955 Author Organization [place] Address [address] [place] [address] Care Team Providers Name Role Phone Tony Gray MD Unavailable Conner Harper MD Unavailable Marlee Coles MD Primary Care Provider [phone] Encounter Details Date Type Department Care Team Description 11/15/2020 [facility] Provider, Histor ical Social History Tobacco Use Types Packs/Day Years Used Date Never Assessed Sex Assigned at Date Recorded Not on file documented as of this encounter Plan of Treatment Upcoming Encounters Date Type Specialty Care Team Description 02/17/2022 Office Visit Pain & [place] [address] [place], [place] [address] (Wo rk) documented as of this encounter Procedures Procedure Name Priority Date/Time Associated Diagnosis Comme nts XR FLUORO TIME 0/1 Routine 03/03/2006 12:00 AM Re sults for this HOUR CDT procedure are i n the results section. documented in this encounter Results XR Fluoro Time 0/1 Hour (03/03/2006 12:00 AM CDT) Anatomical Region Laterality Modality Abdomen/Pelvis Other Specimen (Source) Anatomical Location Collection Method / Collectio n Time Received Time / Laterality Volume Narrative 03/03/2006 12:00 AM CDT See Historical Hospital Medical Record f or documentation Procedure Note Provider, Historical - 11/15/2020Formatt ing of this note might be different from the original. See Historical Hospital Medical Record f or documentation Historical Provider IMG DIAGNOSTIC IMAGING ORDER ABBI documented in this encounter Visit Diagnoses Not on filedocumented in this encounter Care Teams Pharmacy Helper Relationship Specialty Start Date End Date Marlee Coles MD PCP - General 02/10/15 05/18/21 [place] [address] [address] [address] Tony Gray MD Referring Physician Orthopedics 10/01/14 Conner Harper MD MD Orthopedics 10/01/[address] [place] [address] documented as of this encounter
--- OUTSIDE RECORDS SUMMARY | 2022-01-27 10:16 | XMS_ITS | Encounter Summary ---
:1955 Author Organization [place] Address [address] [place] [address] Care Team Providers Name Role Phone Tony Gray MD Unavailable Conner Harper MD Unavailable Marlee Coles MD Primary Care Provider [phone] Reason for Visit Reason Comments Medication Refill Encounter Details Date Type Department Care Team Description 06/14/2019 Communication - [facility] Brigid Norman ti Refill [facility] Jessica, RN [address] [place] [address] Social History Tobacco Use Types Packs/Day Years Used Date Never Assessed Sex Assigned at Date Recorded Not on file documented as of this encounter Miscellaneous Notes Telephone Encounter - Brigid Norman - 06/14/2019 3:15 PM CST Medication being requested: Ibuprofen Last visit date: 06/13 Provider: ANGEL Next visit date: 08/26 Provider: ANGEL Expected follow up: 10 weeks MTM visit (Pain Center) date: na Pertinent between visit information about requested medication (telephone, mychart, prior authorization, concerns): na Last date prescribed: 01/24 Provider responsible: ANGEL Spoke with patient: yes Script being sent to provider - dates and quantity: Requested Prescriptions Pending Prescriptions Disp Refills ??? ibuprofen (ADVIL,MOTRIN) 600 MG tablet 180 tablet 1 Sig: Take 1 tablet (600 mg total) by mouth every 6 (six) hours as needed for pain (max 2400 mg/day). Pharmacy cued: [facility] documented in this encounter Plan of Treatment Upcoming Encounters Date Type Specialty Care Team Description 02/17/2022 Office Visit Pain & [place] [address] [place], [place] [address] (Wo rk) documented as of this encounter Visit Diagnoses Diagnosis Chronic pain syndrome documented in this encounter Care Teams Dry Pan Feeder Relationship Specialty Start Date End Date Marlee Coles MD PCP - General 02/10/15 05/18/21 [place] [address] [address] [place], [place] [address] Tony Gray MD Referring Physician Orthopedics 10/01/14 Conner Harper MD MD Orthopedics 10/01/[address] [facility] [address] [place], [place] [id number] documented as of this encounter
--- OUTSIDE RECORDS SUMMARY | 2022-01-27 10:16 | XMS_ITS | Encounter Summary ---
:1955 Author Organization [place] Address [address] [place] [address] Care Team Providers Name Role Phone Tony Gray MD Unavailable Conner Harper MD Unavailable Marlee Coles MD Primary Care Provider [phone] Reason for Visit Reason Comments Other patient reported side effect s Encounter Details Date Type Department Care Team Description 09/09/2020 Communication - [facility] Marcela Isabel Other (patient [facility] A, RN reported side [address]) [address] [place] [address] Social History Tobacco Use Types Packs/Day Years Used Date Never Assessed Sex Assigned at Date Recorded Not on file documented as of this encounter Miscellaneous Notes Telephone Encounter - Deborah Araujo - 10/01/2020 3:22 PM CDT LYN confirmed to be here around 10:30am Telephone Encounter - Deborah Araujo - 09/29/2020 8:34 AM CDT E-mail sent to Lyn Telephone Encounter - Marivel Cavazos PA-C - 09/29/2020 7:43 AM CDT Ok noted. [facility], thanks. Telephone Encounter - Dalila Joaquin - 09/25/2020 2:01 PM CDT Spoke to patient, he states he will bring the records from his recent hospitalization to his appointment on 10/07/20. Patient also states he has upcoming appointments with his primary care physician kelsea geophysical prospector, release of information for those records have been sent to the patient. Patient is also inquiring if a practice representative from [facility] should also be present at his upcoming appointment due to his pain level, please advise Telephone Encounter - Marivel Cavazos PA-C - 09/09/2020 3:01 PM CDT Last visit was 08/11 and did not make any medication changes at that time. I will need the hospital records - H&P, admission and discharge summaries, and pertinent imaging and labs related to that stay faxed here to review. Please have patient sign a release for this information. Will need to discuss plan of care once he returns to [place]; goal was to have updated lumbar imaging when he returns. He is scheduled 10/07/20. Telephone Encounter - Marcela Isabel RN - 09/09/2020 12:50 PM CDT Patient calls, voicemail reporting that he was hospitalized recently and that the reason for this was my medication Call placed to patient: Reviewed with patient that since starting a new prescription two weeks ago he developed a severe rash on his legs and arms which he described as turned his legs and arms into hamburger Patient went into the hospital in [place] and was treated for an allergic reaction, received steroids in the hospital and is taking benedryl currently. He reports he had fluid around his heart and difficulty breathing. Patient was hospitalized x 3 daysand advised at discharge to no longer take hydrocodone 10/325 mg. Patient will follow up with his primary provider once back in [place] on 09/19/20. Advised patient to continue as recommended by the hospital provider, do not take any further hydrocodone. Patient will also contact the clinic once results are back with the chest xray and whether or not hehas valley fever Patient asking if there would be any recommendations at this time regarding his pain management. Advised that it is likely that the provider would want to allow some time prior to changing or adding any medications but that he would be updated with any further recommendations. Patient agrees to this plan. documented in this encounter Plan of Treatment Upcoming Encounters Date Type Specialty Care Team Description 02/17/2022 Office Visit Pain & [place] [address] [place], [place] [address] (Wo rk) documented as of this encounter Visit Diagnoses Not on filedocumented in this encounter Care Teams Repair Miller Relationship Specialty Start Date End Date Marlee Coles MD PCP - General 02/10/15 05/18/21 [place] [address] [address] [place], [place] [address] Tony Gray MD Referring Physician Orthopedics 10/01/14 Conner Harper MD MD Orthopedics 10/01/[address] [place], [place] [address] documented as of this encounter
--- OUTSIDE RECORDS SUMMARY | 2022-01-27 10:16 | XMS_ITS | Encounter Summary ---
:1955 Author Organization [facility] Address [address] [place] [address] Care Team Providers Name Role Phone Tony Gray MD Unavailable Conner Harper MD Unavailable Marlee Coles MD Primary Care Provider [phone] Reason for Visit Reason Comments Back Pain Encounter Details Date Type Department Care Team Description 08/11/2020 Hospital Encounter [facility] Codie Cavazos [place], continuous use of opioids; Pain Center Marivel Hernadez PA-C Chronic pain syndrome; [address] [employer] Degeneration of lumbar or lumbosacral intervertebral disc; [address] Degeneration of thoracic intervertebral disc [place], [place] [address] [id number] [place], [place] [phone] [id number] Social History Tobacco Use Types Packs/Day Years [...] this encounter Progress Notes Latisha Bautista - 08/11/2020 10:40 AM CST Tremaine Plunkett is a 64 y.o. male who is being evaluated via a billable telephone visit. What phone number would you like to be contacted at? [phone] Patient would like to receive their AVS by AVS Preference: Mail a copy. Pain score:??6 What does your pain feel like:??constant, sharp, aweful Does the pain interfere with: Work:??no Walking/distance:??yes Sleep:??yes Daily activities:??yes Relationships/social life:??yes Mood:??yes F=??8 Marivel Lewis PA-C - 08/11/2020 10:40 AM CST Patient was given the option for a video visit; however, he/she does not have devices and availability of technology or internet service to make this possible. As an alternative, and in order to keep the patient current with medication(s) and pain care, he/she was offered a telephone visit today. PAIN CENTER PROGRESS NOTE Subjective: Tremaine Plunkett is a 64 y.o. male who presents for evaluation of mid and low back pain. He has thoracic and lumbar degeneration status post work injury. He has had lumbar epidural steroid injection andlumbar radiofrequency which was effective for pain relief. He did not have relief from thoracic epidural steroid injection. He has a Nevro SCS implant. Major issues: 1. Chronic, continuous use of opioids 2. Chronic pain syndrome 3. Lumbar Disc Degeneration 4. Degeneration of thoracic intervertebral disc Pain location and description: See CLIMATOLOGY PROFESSOR note Radiation of pain: Buttocks bilaterally, lower legs. Gait disturbance: None reported, denies recent falls. Denies AD. Exacerbating factors: walking, sitting, standing Alleviating factors: Pain medications, rest, ice Associated symptoms: Sleep disturbance due to pain. Numbness in bilateral hands and feet, legs. Denies weakness, bowel or bladder incontinence, fever/chills, unexplained weight loss. Functional Symptoms: See CLIMATOLOGY PROFESSOR note Adverse effects of medications: Denies constipation, drowsiness, dizziness, nausea/abdominal symptoms, rash. States some itching from Vicodin, hydroxyzine is very helpful and taking 25 mg three times aday. Current treatment efficacy: Fair. See medication list. Current treatment compliance: Good; denies self-escalation of doses and no early refill requests. UDT appropriate. Keeps appointment follow-ups with pain center. Purchased stationary bike uses 15-30 every morning - better tolerated than walking. Since the last Pain Center visit, the patient denies any use of anticoagulant medications. Denies any ED/urgent care visits. He had SCS implant on 11/29/18. He saw Dr. Loyola on 01/30/19 and thoraciclead x-ray was negative. He met with Ayse Kong last visit for programming adjustments. He states currently in [place] until September. He states pain in left knee that is causing more pain, can hardly walk. He had injection prior to leaving. Will plan to see orthopedics in [place] to repeat while he is still there. Difficulty breathing due to dust. He denies other changes in health status or any recent medical appointments. Back pain worsens with weather changes. He has used his SCS and does feel better with it. He has setting up to 5 for 2 days. He denies any worsening leg symptoms with this. He states he does have pain going down into bilateral feet. He states his buttock muscles hurt so bad and unsure what this is from. He has been icing. Difficulty sleeping due to pain. Last night was 5 hours without waking up and wa s super. He is taking Vicodin three times a day for past 2 weeks and finds this gives several hours of relief. Hasn't been taking Skelaxin at night as he feels it keeps him awake. Feels his legs are jumping. Taking tylenol three times a day and hydroxyzine for itch. We have discussed updating lumbar MRI or EMG for leg symptoms. He states he would not do this until he returns from [place] in the spring. Sleep study - has not followed through yet. Again, does not plan to do this while away, doesn't have a lot of medical support out of state. Review of Systems Constitutional: Sleep disturbance due to pain. Denies fever, chills, night sweats, lethargy, weight loss, weight gain. Musculoskeletal: Positive for back pain, leg pain, knee joint pain. Denies weakness, joint swelling,recent falls. Gastrointestional: Denies difficulty swallowing, abdominal pain, change in appetite, nausea, vomiting, diarrhea, fecal incontinence. Genitourinary: Increased urinary frequency, attributes to drinking fluids (prostate check normal). Denies urinary incontinence, dysuria, hematuria, hesitancy, change in libido/erectile dysfunction. Neurologic: Numbness bilateral buttocks and legs to feet. Denies headaches, confusion, seizure, weakness, changes in balance, changes in speech. Psychiatric: Denies depression, anxiety, memory loss, psychoses, suicidal ideation, substance use/abuse. 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 INDICATION: [...] upper quadrant. Assessment: Tremaine Plunkett is a 64 y.o. male with visit today for chronic [...] for diagnostic evaluation of symptoms in lower legs as needed. He is advised to continue current medication dosing with refills provided. Previously failed neuropathic medications including Gabapentin, lyrica, duloxetine, TCAs, and lamictal - does not wish to start any new medication while out of state. Advised to use NSAIDS with caution per cardiology and max dosing of APAP. Plan: Continue Vicodin 10/325 mg 2 tabs three times a day As your opioid dose remains stable, I will send electronic refills to the pharmacy for 2 subsequent months until your next appointment so you do not have to call our refill line. The fill dates for your medications are: 08/11/2020 & 09/08/2020 Check with your pharmacy that all prescriptions [...] an explanation if this were to occur. You may continue over the counter acetaminophen in place of ibuprofen, max 3,000 mg daily. Each tab of Vicodin has 325 mg you need to include in the total daily dose. Ok to take hydroxyzine 25 mg 1-2 up to 3 times a day as needed for itching . Ok to take muscle relaxant during the daytime for back/buttock pain if it doesn't make you tired. Plan to order open MRI at [facility] once you return to [place]. Continue use of SCS Follow-up in 8 weeks with Marivel in office Marivel Cavazos PA-C [facility] [address] [place] [address] Call Time: 18 minutes Start - 1112 AM Stop - 1130 AM NATAL NURSE documented in this encounter Miscellaneous Notes Patient Instructions - HE - Marivel Cavazos PA-C - 08/11/2020 10:40 AM PERINATAL NURSE Continue Vicodin 10/325 mg 2 tabs three times a day As your opioid dose remains stable, I will send electronic refills to the pharmacy for 2 subsequent months until your next appointment so you do not have to call our refill line. The fill dates for your medications are: 08/11/2020 & 09/08/2020 Check with your pharmacy that all prescriptions [...] an explanation if this were to occur. You may continue over the counter acetaminophen in place of ibuprofen, max 3,000 mg daily. Each tab of Vicodin has 325 mg you need to include in the total daily dose. Ok to take hydroxyzine 25 mg 1-2 up to 3 times a day as needed for itching . Ok to take muscle relaxant during the daytime for back/buttock pain if it doesn't make you tired. Plan to order open MRI at [facility] once you return to [place]. Continue use of SCS Follow-up in 8 weeks with Marivel in office NATAL NURSE Addendum Note - Historical Provider - 08/11/2020 10:40 AM CST Addendum Note by Analisa Chi at 08/11/2020 10:40 AM Author: Analisa Chi Service: -- Author Type: -- Filed: 08/13/2020 8:21 AM Date of Service: 08/11/2020 10:40 AM Status: Signed Hand Painter: Analisa Chi Encounter addended by: Analisa Chi on: 08/13/2020 8:21 AM Actions taken: Charge Capture section accepted NATAL NURSE documented in this encounter Plan of Treatment Upcoming Encounters Date Type Specialty Care Team Description 02/17/2022 Office Visit [facility] [place] [address] [place], [place] [phone] (Wo rk) documented as of this encounter Visit Diagnoses Diagnosis Chronic, continuous use of opioids Opioid type dependence, continuous Chronic pain syndrome Degeneration of lumbar or lumbosacral in tervertebral disc Degeneration of thoracic intervertebral disc Degeneration of thoracic or thoracolumba r intervertebral disc documented in this encounter Care Teams Mail Examiner Relationship Specialty Start Date End Date Marlee Coles MD PCP - General 02/10/15 05/18/21 [place] [address] [address] [facility] [address] [place] [address] Tony Gray MD Referring Physician Orthopedics 10/01/14 Conner Harper MD MD Orthopedics 10/01/[address] [place], [place] [id number] documented as of this encounter
--- OUTSIDE RECORDS SUMMARY | 2022-01-27 10:16 | XMS_ITS | Encounter Summary ---
:1955 Author Organization [facility] Address [address] [place] [address] Care Team Providers Name Role Phone Tony Gray MD Unavailable Conner Harper MD Unavailable Marlee Coles MD Primary Care Provider [phone] Reason for Visit Reason Comments Back Pain Encounter Details Date Type Department Care Team Description 02/04/2020 Hospital Encounter [facility] Carol Cavazos radiculopathy; Pain Center Marivel Hernadez PA-C Chronic pain syndrome; [address] [facility] [address] Degeneration of lumbar or lumbosacral intervertebral disc; [address] Opioid type dependence, continuous (H) [place], [place] [address] [id number] [place], [place] [phone] [id number] Social History Tobacco Use Types Packs/Day Years [...] encounter Progress Notes Marivel Cavazos PA-C - 02/04/2020 9:00 AM CDT PAIN CENTER PROGRESS NOTE Subjective: Tremaine Plunkett is a 64 y.o. male who presents for evaluation of mid and low back pain. He has thoracic and lumbar degeneration status post work injury. He has had lumbar epidural steroid injection andlumbar radiofrequency which was effective for pain relief. He did not have relief from thoracic epidural steroid injection. Major issues: 1. Lumbar radiculopathy 2. Chronic pain syndrome 3. Lumbar Disc Degeneration 4. Opioid Dependence With Continuous Use Pain location and description: 01/26 constant sharp awful pain in low back, buttock, and bilateral legs. Function rated 5. Radiation of pain: Buttocks bilaterally, lower legs. Gait disturbance: None reported, denies recent falls. Denies AD. Exacerbating factors: walking, sitting, standing Alleviating factors: Pain medications, rest, ice Associated symptoms: Sleep disturbance due to pain. Numbness in bilateral hands and feet, legs. Denies weakness, bowel or bladder incontinence, fever/chills, unexplained weight loss. 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 States some itching from Vicodin, hydroxyzine is very helpful and taking 25 mg three times aday. Current treatment efficacy: Fair. Vicodin 10/325 mg up to 2 tabs 2 times a day prn. methocarbamol 500 mg prn but wants to ask about a different muscle relaxant. APAP 500 mg takes two times a day. Current treatment compliance: Good; denies self-escalation of [...] 01/30/19 and thoraciclead x-ray was negative. He has continued to report worsened pain since his implant and increased pain in bilateral legs, [facility] that he had settings too high which aggravated his symptoms. States since last visit his pain is unchanged but has been higher than what he would like. Denies recent falls or injuries. He states he saw Nevro in person and frequency was changed again and has currently set to 4. He states he was reduced down to 1 and was advised to increase slowly as tolerated. He states he has tried to change the frequency every other day. He states lower back pain is the worse and it does go down mariel ateral legs, refers to his mid back and sometimes radiates into his chest. He states walking on concrete is making a difference in his pain. He states he cannot wear his work boots anymore as he doesn't have a new pair. 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 Patient saw cardiology on 12/27/19 reviewed today: Impression: Tremaine Plunkett is a very pleasant 64 y.o. male with a history of past tobacco abuse, untreated hypertension, obesity, chronic low back pain, family history of coronary disease who presents in follow up after coronary angiography showed no significant coronary artery disease but a high LVEDP consistent with diastolic dysfunction. Plan: 1. Diastolic heart failure, hypertension: Add chlorthalidone 25 mg p.o. daily for improvement of blood pressure and volume status. Check basic metabolic panel in 1 to 2 weeks later. Counseled regardingsalt restriction. 2. PVCs: Continue metoprolol. 3. Ongoing dyspnea on exertion: His coronary angiogram showed no significant coronary artery diseaseso his aspirin will be stopped. His ongoing dyspnea with exertion is likely related to suboptimally controlled hypertension with associated diastolic dysfunction. Given smoking history, perform complete pulmonary function tests to look for evidence of lung disease as well. 4. Snoring: Recommend outpatient sleep study. He states he quit taking cardiology medications as he was prescribed 3 medications and he feels better without them; spoke to a nurse about this. He states he feels good now without shortness of breathand not following nurses assistant at this time. Thinks it relates back to dust in [place]. He states if he has symptoms recur will return to physician in [place] as he has questions about [place]. He denies sleep study scheduled as no one called to make an appointment. He stopped Ibuprofen as acidizer told him too much risk and replaced with APAP. He continues to report bilateral leg pain, difficult for him to decipher if coming from lower back, knees, or both. He had steroid injection to left knee 2 weeks ago through orthopedics and states it helped somewhat. He states he is also going to have ortho check on right knee x-ray to see if any concerns with his knee replacement. ?? He states he has been taking up to 2 tabs Vicodin BID prn and states he still has a lot of pain. He states he is not taking three times a day as he is concerned about being too sleepy from it. He states in the afternoon he falls asleep for 10 minutes if he takes it three times a day. We discussed duloxetine trial. He was to start 30 mg daily x 1 week and increase to 60 mg daily and he reports he had awful dreams and when he increased to 60 mg and side effects worsened. He states he took the entire prescription as he thought it may get better but he didn't taper off it as he didn't get a refill. [place] more agitated on it and since stopping this symptom has resolved. Review of Systems Constitutional: Sleep disturbance due [...] loss, psychoses, suicidal ideation, substance use/abuse. Opioid [place] Precautions: UDT- 06/13/19, results as expected Consent - 12/13/18 Agreement- 12/13/18 Pharmacy- as documented [facility]- reviewed 02/04/2020 as expected Count- n/a Psychological evaluation n/a MME- up to 60 Pharmacogenetic testing n/a DIANE 03/26/19 Imaging: EXAM: XR THORACIC SPINE 2 VWS LOCATION: [facility] DATE/TIME: 01/30/2019 9:09 AM ?? [...] Tremaine Plunkett is a 64 y.o. male seen in clinic today for [...] advised to schedule reprogramming again with Nevro which was done recently. If this isn't successful, will consider bilateral LE EMG or updated MRI for diagnostic evaluation of symptoms in lower legs. He is advised to continue Vicodin dosing as he is; we discuss most days he is taking 4 tabs total and will reduce quantity to reflect this. On severe pain days, ok to take 6 tabs and he has #20 tabs from last RX to do so. Discuss avoiding a stock pile of medications. Discuss how opioids increase risk of respiratory depression and agree with recommendation he should have a sleep study. He has stopped ibuprofen due to cardiovascular risk and replaced with tylenol dosing and ice. Also requests changing his methocarbamol to a different muscle relaxant to see if he can tolerate dose during the day; review risk of sedation on this type of medication. Plan: Continue Vicodin 10/325 mg 1-2 tablet every 4-6 hours as needed for pain. You report taking 2 tabs two times a day except if pain is severe so will change refill to reflect this (#112 tabs for 28 days). If you have severe pain (10/10) and need a third dose, ok to take 2 tabs three times a day for these episodes, patient has #20 tabs estimated at home for this. Keep track of how often this is needed, and when you call for refill can adjust refill accordingly. Check with your pharmacy that all prescriptions are on your profile. Call the pharmacy a week before you want to fill the prescription as stock may vary and the pharmacy may need to order the medication for you. I reserve the right to cancel the electronic prescription at the pharmacy in between appointments and would contact you with an explanation if this were to occur. Please call our phone # and choose option #4 to request a medication refill seven days in advance for your second month opioid prescription refill to be sent electronically to your pharmacy. We will not return a phone call when the refill is sent to your pharmacy, but expect you to communicate with your pharmacy to ensure it is received and ready by the date needed. You may continue over the counter acetaminophen in place of ibuprofen, max 3,000 mg daily. Each tab of Vicodin has 325 mg you need to include in the total daily dose. Ok to take hydroxyzine 25 mg 1-2 up to 3 times a day as needed for itching - refill sent to [facility] Discontinue methocarbamol and trial skelaxin 400 mg for muscle relaxant, may take up to three times a day if tolerated. Side effects reviewed today, monitor for drowsiness. Ok to take 400-800 mg dose at bedtime as needed. Reschedule with Ayse for reprogramming recommendations in March. Discussed updated lumbar MRI/EMGif needed prior to you leaving for [place] if pain continues to be uncontrolled. Follow-up in 8 weeks with Marivel Call Time: 24 minutes Start - 0915 Stop - 09 Marivel Cavazos PA-C [facility] [address] [place] [address] Latisha Bautista - 02/04/2020 9:00 AM CDT Tremaine Plunkett is a 64 y.o. male who is being evaluated via a billable telephone visit. The patient has been notified of following: This telephone visit will be conducted via a call between you and your physician/provider. We have found that certain health care needs can be provided without the need for a physical exam. This service lets us provide the care you need with a short phone conversation. If a prescription is necessary we can send it directly to your pharmacy. If lab work is needed we can place an order for that and you can then stop by our lab to have the test done at a later time. Telephone visits are billed at different rates depending on your insurance coverage. During this emergency period, for some insurers they may be billed the same as an in-person visit. Please reach out to your insurance provider with any questions. Patient has given verbal consent to a Telephone visit? Yes What phone number would you like to be contacted at? [phone] Patient would like to receive their AVS by AVS Preference: Mail a copy. Pain score: 8 What does your pain feel like: constant, sharp, aweful Does the pain interfere with: Work: no Walking/distance: yes Sleep: yes Daily activities: yes Relationships/social life: yes Mood: yes F= 5 documented in this encounter Miscellaneous Notes Patient Instructions - LAURITA - Marivel Cavazos PA-C - 02/04/2020 9:00 AM CDT Continue Vicodin 10/325 mg 1-2 tablet every 4-6 hours as needed for pain. You report taking 2 tabs two times a day except if pain is severe so will change refill to reflect this (#112 tabs for 28 days). If you have severe pain (10/10) and need a third dose, ok to take 2 tabs three times a day for these episodes, patient has #20 tabs estimated at home for this. Keep track of how often this is needed, and when you call for refill can adjust refill accordingly. Check with your pharmacy that all prescriptions are on your profile. Call the pharmacy a week before you want to fill the prescription as stock may vary and the pharmacy may need to order the medication for you. I reserve the right to cancel the electronic prescription at the pharmacy in between appointments and would contact you with an explanation if this were to occur. Please call our phone # and choose option #4 to request a medication refill seven days in advance for your second month opioid prescription refill to be sent electronically to your pharmacy. We will not return a phone call when the refill is sent to your pharmacy, but expect you to communicate with your pharmacy to ensure it is received and ready by the date needed. You may continue over the counter acetaminophen in place of ibuprofen, max 3,000 mg daily. Each tab of Vicodin has 325 mg you need to include in the total daily dose. Ok to take hydroxyzine 25 mg 1-2 up to 3 times a day as needed for itching - refill sent to [facility] Discontinue methocarbamol and trial skelaxin 400 mg for muscle relaxant, may take up to three times a day if tolerated. Side effects reviewed today, monitor for drowsiness. Ok to take 400-800 mg dose at bedtime as needed. Reschedule with Ayse for reprogramming recommendations in March. Discussed updated lumbar MRI/EMGif needed prior to you leaving for [place] if pain continues to be uncontrolled. Follow-up in 8 weeks with Marivel Patient [place] Metaxalone Oral tablet What is this medicine? METAXALONE (me TAX a lone) is a muscle relaxer. It is used to treat pain and stiffness in muscles caused by strains, sprains, or other injury. This medicine may be used for other purposes; ask your health care provider or pharmacist if you have questions. What should I tell my health care provider before I take this medicine? They need to know if you have any of these conditions: ?? anemia or blood disorder ?? kidney disease ?? liver disease ?? an unusual or allergic reaction to metaxalone, other medicines, foods, dyes, or preservatives ?? or trying to get ?? breast-feeding How should I use this medicine? Take this medicine by mouth. Swallow it with a full glass of water. Follow the directions on the prescription label. Do not take more medicine than you are told to take. Talk to your screen printing loader unloader regarding the use of this medicine in children. Special care may be needed. Overdosage: If you think you have taken too much of this medicine contact a poison control center [facility] room at once. NOTE: This medicine is only for you. Do not share this medicine with others. What if I miss a dose? If you miss a dose, take it as soon as you can. If it is almost time for your next dose, take only that dose. Do not take double or extra doses. What may interact with this medicine? ?? alcohol or medicines that contain alcohol ?? antihistamines ?? medicines for depression, anxiety, and other mental conditions ?? medicines for pain like codeine, oxycodone, tramadol, and propoxyphene ?? medicines for sleep ?? phenobarbital This list may not describe all possible interactions. Give your health care provider a list of all the medicines, herbs, non-prescription drugs, or dietary supplements you use. Also tell them if you smoke, drink alcohol, or use illegal drugs. Some items may interact with your medicine. What should I watch for while using this medicine? Check with your doctor or health critical care registered nurse if your condition does not improve within 1 to 3 weeks. You may get drowsy or dizzy when you first start taking the medicine or change doses. Do not drive, use machinery, or do anything that may be dangerous until you know how the medicine affects you. Stand or sit up slowly. What side effects may I notice from receiving this medicine? Side effects that you should report to your doctor or health critical care registered nurse as soon as possible: ?? difficulty breathing ?? skin rash ?? unusually weak or tired ?? vomiting ?? swelling of face, lips, or tongue ?? yellow eyes or skin Side effects that usually do not require medical attention (report to your doctor or health critical care registered nurse if they continue or are bothersome): ?? headache ?? irritability ?? nervousness ?? stomach upset This list may not describe all possible side effects. Call your doctor for medical advice about sideeffects. You may report side effects to FDA at 0-784-KWN-4999. Where should I keep my medicine? Keep out of the reach of children. Store at room temperature between 15 and 30 degrees C (59 and 86 degrees F). Keep container tightly closed. Throw away any unused medicine after the expiration date. NOTE:This sheet is a summary. It may not cover all possible information. If you have questions aboutthis medicine, talk to your doctor, pharmacist, or health care provider. Copyright?? 2015 [employer] Addendum Note - Historical Provider - 02/04/2020 9:00 AM CDT Addendum Note by Analisa Chi at 02/04/2020 9:00 AM Author: Analisa Chi Service: -- Author Type: -- Filed: 02/06/2020 2:46 PM Date of Service: 02/04/2020 9:00 AM Status: Signed Open Hearth Door Liner: Analisa Chi Encounter addended by: Analisa Chi on: 02/06/2020 2:46 PM Actions taken: Charge Capture section accepted documented in this encounter Plan of Treatment Upcoming Encounters Date Type Specialty Care Team Description 02/17/2022 Office Visit Pain & [place] [address] [place], [place] [address] (Wo rk) documented as of this encounter Visit Diagnoses Diagnosis Lumbar radiculopathy Thoracic or lumbosacral neuritis or radi culitis, unspecified Chronic pain syndrome Degeneration of lumbar or lumbosacral in tervertebral disc Opioid type dependence, continuous (H) Opioid type dependence, continuous documented in this encounter Care Teams County Demonstrator Relationship Specialty Start Date End Date Marlee Coles MD PCP - General 02/10/15 05/18/21 [place] [address] [place], [place] [id number] Tony Gray MD Referring Physician Orthopedics 10/01/14 Conner Harper MD MD Orthopedics 10/01/[address] [place], [place] [address] documented as of this encounter
--- OUTSIDE RECORDS SUMMARY | 2022-01-27 10:16 | XMS_ITS | Encounter Summary ---
:1955 Author Organization [place] Address [address] [place] [address] Care Team Providers Name Role Phone Tony Gray MD Unavailable Conner Harper MD Unavailable Marlee Coles MD Primary Care Provider [phone] Reason for Visit Reason Comments Back Pain Encounter Details Date Type Department Care Team Description 11/21/2019 Hospital Encounter [facility] Codie Cavazos [place], continuous use of opioids; Pain Center Marivel Hernadez PA-C Chronic pain syndrome; [address] [facility] [address] Degeneration of lumbar or lumbosacral intervertebral disc; [address] Lumbar radiculopathy [place], [place] [address] [address] [place], [place] [phone] [id number] Social History Tobacco Use Types Packs/Day Years [...] encounter Progress Notes Marivel Cavazos PA-C - 11/21/2019 11:20 AM CDT PAIN CENTER PROGRESS NOTE Subjective: [...] pain syndrome 3. Lumbar Disc Degeneration 4. Lumbar radiculopathy Pain location and description: 810 constant sharp, awful pain in low back, buttock, and bilaterallegs. Function rated 3. Radiation of pain: Buttocks bilaterally, lower legs. Gait disturbance: None reported, denies recent falls. Denies AD. Exacerbating factors: walking, sitting, standing Alleviating factors: Pain medications, rest, ice Associated symptoms: Sleep disturbance due to pain. Numbness in bilateral hands and feet, legs. Denies weakness, bowel or bladder incontinence, fever/chills, unexplained weight loss. Functional Symptoms: See TOOL MAKER APPRENTICE note Adverse effects of medications: Denies constipation, drowsiness, dizziness, nausea/abdominal symptoms, rash. States some itching from Vicodin, hydroxyzine is very helpful and taking 25 mg three times aday. Current treatment efficacy: Fair. Vicodin 10/325 mg up to 2 tabs 3 times a day prn. methocarbamol 500 mg prn, Ibuprofen 400 mg [...] pain in bilateral legs, [facility] representative that he had settings too high which aggravated his symptoms. States since last visit his pain is unchanged but has been higher than what he would like. Denies recent falls or injuries. He continues to report bilateral leg pain, difficult for him to decipher if coming from lower back, knees, or both. He had steroid injection to left knee 2 weeks ago through orthopedics and states it helped somewhat. He states he is also going to have ortho check on right knee x-ray to see if any concerns with his knee replacement. States he is having more pain in his lower back near beltline and it goes up his back 3-4 inches. Hefeels like this is stabbing with a knife and gets muscle cramps. He states this could be aggravated as he has been sitting more due to his knee pain. He is getting Curt horses in legs bilaterally, is using SCS on first 2 settings and leaving it there until he has reprogramming. He states he has theSCS on all the time and doesn't think it does help his pain. He was supposed to meet with Ayse today but didn't want to drive here if he also wasn't going to see provider in the office. He reported shortness of breath last visit with SCS on and was advised to present to ED If continued; reviewed with [facility]se rep that there were no documented reports of this in clinical trials. He statesafter this discussion, he had recurrence of shortness of breath and he went to ED on 11/11/19: ED interim note: Patient taken over at shift change for outgoing ER staff pending decision on willingness to be hospitalized for further work-up or refusal for hospitalization and discharge home, see previous ER documentation. All documentations and studies were reviewed. H&P reviewed no changes from previous. Lengthy discussion had with the patient regarding findings and recommendations from cardiology for observation admission, stress echo, CTA and repeat troponins, however, patient did not wish to be hospitalized for these and felt that it was more appropriate to perform as an outpatient. Did discuss risk benefit of this approach and patient acknowledged understanding and continued to request discharge and follow-up. Did discuss signs symptoms to return for. No changes made to current regimen. Recommend follow-up with primary physician in 1 day for reevaluation. Patient acknowledged understanding and was agreeable to plan and discharge. Assessment: 1. Shortness of breath, bigeminy, hypertension and mildly elevated troponin consider possible ischemic etiology versus demand pathophysiology and irritation bigeminy 2. Elevated creatinine 3. Other chronic?? He had stress test yesterday, didn't walk on treadmill long due to back pain on an incline so he hadchemical stress test and wants to get results from forest ecologist. ?? He states he has been taking up to 2 tabs Vicodin TID prn and states he still has a lot of pain. We discuss duloxetine trial, he is open to it Review of Systems Constitutional: Sleep disturbance due [...] loss, psychoses, suicidal ideation, substance use/abuse. Opioid [facility] Precautions: UDT- reviewed from 06/13/19, results as expected Consent - 12/13/18 Agreement- 12/13/18 Pharmacy- as documented SHOE IRONER- reviewed 11/21/2019 as expected Count- n/a Psychological evaluation n/a MME- up to 60 Pharmacogenetic testing n/a DIANE 03/26/19 Imaging: EXAM: XR THORACIC SPINE 2 VWS LOCATION: [facility] DATE/TIME: 01/30/2019 9:09 AM ?? [...] to schedule reprogramming again with [facility] which he declined today after making arrangements as he didn't want to drive here from [place]. If this isn't successful, will consider bilateral LE EMG orupdated MRI for diagnostic evaluation of symptoms in lower legs. He is advised to continue Vicodin dosing as he is, also maximize daily Ibuprofen and Tylenol doses alternating and also using ice. Will trial duloxetine for his chronic pain after reviewing possible risks and side effects he is agreeable; he has failed gabapentin and lyrica and TCAs in the past. Plan: Continue Vicodin 10/325 mg 1-2 tablet every 4-6 hours as needed for pain. Max 6 tabs in 24 hours, #168 for 28 days. Do not take dose if you are short of breath as opioids can make respiratory depression worse. As your opioid dose remains stable, I will send electronic refills to the pharmacy for 2 subsequent months until your next appointment so you do not have to call our refill line. The fill dates for your medications are: 11/28/2019 & 12/26/19 Check with your pharmacy that all prescriptions [...] occur. You may continue over the counter ibuprofen with food up to 2400 mg daily or tylenol up to 3,000 mg daily (remember to calculate each Vicodin tablet has 325 mg of tylenol) for pain. Ibuprofen sent to [facility] Ok to take hydroxyzine 25 mg 1-2 up to 3 times a day as needed for itching - refill sent to [facility] Trial duloxetine for leg/knee joint pain - take 30 mg daily x 7 days, then increase to 60 mg daily (2 capsules). May take 4-6 weeks to see effect, call nurse line with any side effects. Reschedule with Ayse for reprogramming recommendations. Follow-up in 8 weeks with Marivel Call Time: 20 minutes Start - 1132 Stop - 1152 Marivel Cavazos PA-C [facility] [address] [facility] [place] [address] Latisha Bautsita - 11/21/2019 11:20 AM CDT Images from the original note were not included. Progress Notes by Latisha Bautista CMA at 11/21/2019 11:20 AM Author: Latisha Bautista CMA Service: -- Author Type: Bleach Liquor Maker Filed: 11/21/2019 12:31 PM Date of Service: 11/21/2019 11:20 AM Status: Signed Production Control Expediter: Latisha Bautista CMA (Bleach Liquor Maker) Tremaine Plunkett is a 64 y.o. male who is being evaluated via a billable telephone visit regarding back pain. Patient describes his pain assharp, constant, aweful. Patient's everyday functions effected by pain include: walking, sleep and activities of daily living. The patient has been notified of following: [...] would you like to be contacted at? home Patient would like to receive their AVS by AVS Preference: Mail a copy. Latisha Bautista CMA documented in this encounter Miscellaneous Notes Patient Instructions - LAURITA - Marivel Cavazos PA-C - 11/21/2019 11:20 AM CDT Continue Vicodin 10/325 mg 1-2 tablet every 4-6 hours as needed for pain. Max 6 tabs in 24 hours, #168 for 28 days. Do not take dose if you are short of breath as opioids can make respiratory depression worse. As your opioid dose remains stable, I will send electronic refills to the pharmacy for 2 subsequent months until your next appointment so you do not have to call our refill line. The fill dates for your medications are: 11/28/2019 & 12/26/19 Check with your pharmacy that all prescriptions [...] occur. You may continue over the counter ibuprofen with food up to 2400 mg daily or tylenol up to 3,000 mg daily (remember to calculate each Vicodin tablet has 325 mg of tylenol) for pain. Ibuprofen sent to [facility] Ok to take hydroxyzine 25 mg 1-2 up to 3 times a day as needed for itching - refill sent to [facility] Trial duloxetine for leg/knee joint pain - take 30 mg daily x 7 days, then increase to 60 mg daily (2 capsules). May take 4-6 weeks to see effect, call nurse line with any side effects. Reschedule with Ayse for reprogramming recommendations. Follow-up in 8 weeks with Marivel Patient Education Duloxetine Oral capsule, gastro-resistant pellets What is this medicine? DULOXETINE (doo LOX e teen) is used to treat depression, anxiety, and different types of chronic pain. This medicine may be used for other purposes; ask your health care provider or pharmacist if you have questions. What should I tell my health care provider before I take this medicine? They need to know if you have any of these conditions: ?? bipolar disorder or a family history of bipolar disorder ?? glaucoma ?? kidney disease ?? liver disease ?? suicidal thoughts or a previous suicide attempt ?? taken medicines called MAOIs like Carbex, Eldepryl, Marplan, Nardil, and Parnate within 14 days ?? an unusual reaction to duloxetine, other medicines, foods, dyes, or preservatives ?? or trying to get ?? breast-feeding How should I use this medicine? Take this medicine by mouth with a glass of water. Follow the directions on the prescription label. Do not cut, crush or chew this medicine. You can take this medicine with or without food. Take your medicine at regular intervals. Do not take your medicine more often than directed. Do not stop taking this medicine suddenly except upon the advice of your doctor. Stopping this medicine too quickly may cause serious side effects or your condition may worsen. A special MedGuide will be given to you by the pharmacist with each prescription and refill. Be sureto read this information carefully each time. Talk to your director of outreach regarding the use of this medicine in children. While this drug may be prescribed for children as young as 7 years of age for selected conditions, precautions do apply. Overdosage: If you think you have taken too much of this medicine contact a poison control center [facility] room at once. NOTE: This medicine is only for you. Do not share this medicine with others. What if I miss a dose? If you miss a dose, take it as soon as you can. If it is almost time for your next dose, take only that dose. Do not take double or extra doses. What may interact with this medicine? Do not take this medicine with any of the following medications: ?? certain diet drugs like dexfenfluramine, fenfluramine ?? desvenlafaxine ?? linezolid ?? MAOIs like Azilect, Carbex, Eldepryl, Marplan, Nardil, and Parnate ?? methylene blue (intravenous) ?? milnacipran ?? thioridazine ?? venlafaxine This medicine may also interact with the following medications: ?? alcohol ?? aspirin and aspirin-like medicines ?? certain antibiotics like ciprofloxacin and enoxacin ?? certain medicines for blood pressure, heart disease, irregular heart beat ?? certain medicines for depression, anxiety, or psychotic disturbances ?? certain medicines for migraine headache like almotriptan, eletriptan, frovatriptan, naratriptan, rizatriptan, sumatriptan, zolmitriptan ?? certain medicines that treat or prevent blood clots like warfarin, enoxaparin, and dalteparin ?? cimetidine ?? fentanyl ?? lithium ?? NSAIDS, medicines for pain and inflammation, like ibuprofen or naproxen ?? phentermine ?? procarbazine ?? sibutramine ?? [place]'s wort ?? theophylline ?? tramadol ?? tryptophan This list may not describe all possible interactions. Give your health care provider a list of all the medicines, herbs, non-prescription drugs, or dietary supplements you use. Also tell them if you smoke, drink alcohol, or use illegal drugs. Some items may interact with your medicine. What should I watch for while using this medicine? Tell your doctor if your symptoms do not get better or if they get worse. Visit your doctor or health resident care provider for regular checks on your progress. Because it may take several weeks to see thefull effects of this medicine, it is important to continue your treatment as prescribed by your doctor. Patients and their families should watch out for new or worsening thoughts of suicide or depression.Also watch out for sudden changes in feelings such as feeling anxious, agitated, panicky, irritable,hostile, aggressive, impulsive, severely restless, overly excited and hyperactive, or not being ableto sleep. If this happens, especially at the beginning of treatment or after a change in dose, call your health resident care provider. You may get drowsy or dizzy. Do not drive, use machinery, or do anything that needs mental alertnessuntil you know how this medicine affects you. Do not stand or sit up quickly, especially if you are an older patient. This reduces the risk of dizzy or fainting spells. Alcohol may interfere with the effect of this medicine. Avoid alcoholic drinks. This medicine can cause an increase in blood pressure. This medicine can also cause a sudden drop inyour blood pressure, which may make you feel faint and increase the chance of a fall. These effects are most common when you first start the medicine or when the dose is increased, or during use of other medicines that can cause a sudden drop in blood pressure. Check with your doctor for instructions on monitoring your blood pressure while taking this medicine. Your mouth may get dry. Chewing sugarless gum or sucking hard candy, and drinking plenty of water may help. Contact your doctor if the problem does not go away or is severe. What side effects may I notice from receiving this medicine? Side effects that you should report to your doctor or health resident care provider as soon as possible: ?? allergic reactions like skin rash, itching or hives, swelling of the face, lips, or tongue ?? changes in blood pressure ?? confusion ?? dark urine ?? dizziness ?? fast talking and excited feelings or actions that are out of control ?? fast, irregular heartbeat ?? fever ?? general ill feeling or flu-like symptoms ?? hallucination, loss of contact with reality ?? light-colored stools ?? loss of balance or coordination ?? redness, blistering, peeling or loosening of the skin, including inside the mouth ?? right upper belly pain ?? seizures ?? suicidal thoughts or other mood changes ?? trouble concentrating ?? trouble passing urine or change in the amount of urine ?? unusual bleeding or bruising ?? unusually weak or tired ?? yellowing of the eyes or skin Side effects that usually do not require medical attention (report to your doctor or health resident care provider if they continue or are bothersome): ?? blurred vision ?? change in appetite ?? change in sex drive or performance ?? headache ?? increased sweating ?? nausea This list may not describe all possible side effects. Call your doctor for medical advice about sideeffects. You may report side effects to FDA at 9-423-NUN-6693. Where should I keep my medicine? Keep out of the reach of children. Store at room temperature between 15 and 30 degrees C (59 and 86 degrees F). Throw away any unused medicine after the expiration date. NOTE:This sheet is a summary. It may not cover all possible information. If you have questions aboutthis medicine, talk to your doctor, pharmacist, or health care provider. Copyright?? 2015 [employer] Standard Addendum Note - Historical Provider - 11/21/2019 11:20 AM CDT Addendum Note by Analisa Chi at 11/21/2019 11:20 AM Author: Analisa Chi Service: -- Author Type: -- Filed: 11/27/2019 11:10 AM Date of Service: 11/21/2019 11:20 AM Status: Signed Production Control Expediter: Analisa Chi Encounter addended by: Analisa Chi on: 11/27/2019 11:10 AM Actions taken: Charge Capture section accepted documented in this encounter Plan of Treatment Upcoming Encounters Date Type Specialty Care Team Description 02/17/2022 Office Visit Pain & [place] [address] [place], [place] [address] (Wo rk) documented as of this encounter Visit Diagnoses Diagnosis Chronic, continuous use of opioids Opioid type dependence, continuous Chronic pain syndrome Degeneration of lumbar or lumbosacral in tervertebral disc Lumbar radiculopathy Thoracic or lumbosacral neuritis or radi culitis, unspecified documented in this encounter Care Teams Shipper Receiver Relationship Specialty Start Date End Date Marlee Coles MD PCP - General 02/10/15 05/18/21 [place] [address] [address] [address] Tony Gray MD Referring Physician Orthopedics 10/01/14 Conner Harper MD MD Orthopedics 10/01/[address] [place], [place] [address] documented as of this encounter
--- OUTSIDE RECORDS SUMMARY | 2022-01-27 10:16 | XMS_ITS | Encounter Summary ---
:1955 Author Organization [facility] Address [address] [facility] [place] [address] Care Team Providers Name Role Phone Tony Gray MD Unavailable Conner Harper MD Unavailable Marlee Coles MD Primary Care Provider [phone] Encounter Details Date Type Department Care Team Description 11/19/2020 Records - [facility] CONVERSION Provider, Histor ical Social History Tobacco Use Types Packs/Day Years Used Date Never Assessed Sex Assigned at Date Recorded Not on file documented as of this encounter Plan of Treatment Upcoming Encounters Date Type Specialty Care Team Description 02/17/2022 Office Visit Pain & [place] [address] [place], [place] [address] (Wo rk) documented as of this encounter Procedures Procedure Name Priority Date/Time Associated Diagnosis Comme nts IR THORACIC Routine 01/27/2012 12:00 AM Results for this EPIDURAL STEROID CDT procedure a re in INJECTION the results section. documented in this encounter Results IR Thoracic Epidural Steroid Injection (01/27/2012 12:00 AM CDT) Anatomical Region Laterality Modality Spine Other Specimen (Source) Anatomical Location Collection Method / Collectio n Time Received Time / Laterality Volume Narrative 01/27/2012 12:00 AM CDT See Historical Hospital Medical Record f or documentation Procedure Note Provider, Historical - 11/19/2020Formatt ing of this note might be different from the original. See Historical Hospital Medical Record f or documentation Historical Provider IMG IR ORDERABLES documented in this encounter Visit Diagnoses Not on filedocumented in this encounter Care Teams Chemical Pumper Relationship Specialty Start Date End Date Marlee Coles MD PCP - General 02/10/15 05/18/21 [place] [address] [address] [facility] [address] [place] [address] Tony Gray MD Referring Physician Orthopedics 10/01/14 Conner Harper MD MD Orthopedics 10/01/14 [facility] [place] [place], [place] [id number] [place], [place] [address] documented as of this encounter
--- OUTSIDE RECORDS SUMMARY | 2022-01-27 10:16 | XMS_ITS | Encounter Summary ---
:1955 Author Organization [facility] Address [address] [place] [address] Care Team Providers Name Role Phone Tony Gray MD Unavailable Conner Harper MD Unavailable Marlee Coles MD Primary Care Provider [phone] Encounter Details Date Type Department Care Team Description 03/26/2019 Communication - [facility] Provider, [facility] Pain Center Historical [address] [place] [address] Social History Tobacco Use Types Packs/Day Years Used Date Never Assessed Sex Assigned at Date Recorded Not on file documented as of this encounter Miscellaneous Notes Telephone Encounter - Marivel Cavazos PA-C - 03/27/2019 3:35 PM CDT Received return phone call from [facility] at 1515 today. Created addendum in patient chart from 03/26/19. Telephone Encounter - Marivel Cavazos PA-C - 03/27/2019 2:31 PM CDT Phone call placed to [facility] to discuss patient concerns with SCS and make a plan for Radha. I was forwarded to [facility] which did not identify the feather sawyer, left a generic message for call back this afternoon or tomorrow. Telephone Encounter - Historical Provider - 03/26/2019 4:03 PM CDT Patient left message. Just tell Marivel the name isFrancisco, and phone no. Is [phone]. documented in this encounter Plan of Treatment Upcoming Encounters Date Type Specialty Care Team Description 02/17/2022 Office Visit Pain & [place] [address] [place], [place] [address] (Wo rk) documented as of this encounter Visit Diagnoses Not on filedocumented in this encounter Care Teams Errand Runner Relationship Specialty Start Date End Date Marlee Coles MD PCP - General 02/10/15 05/18/21 [facility] [place] [address] [address] [id number] Tony Gray MD Referring Physician Orthopedics 10/01/14 Conner Harper MD MD Orthopedics 10/01/14 [address] [facility] [address] [place], [place] [address] documented as of this encounter
--- OUTSIDE RECORDS SUMMARY | 2022-01-27 10:16 | XMS_ITS | Encounter Summary ---
:1955 Author Organization [facility] Address [address] [place] [address] Care Team Providers Name Role Phone Tony Gray MD Unavailable Conner Harper MD Unavailable Marlee Coles MD Primary Care Provider Reason for Visit Reason Comments Back Pain Encounter Details Date Type Department Care Team Description 10/07/2020 Hospital Encounter [facility] Alessandro Cavazos neration of lumbar or lumbosacral intervertebral disc; Pain Center Marivel Hernadez PA-C Chronic pain syndrome; [address] [facility] [address] Degeneration of thoracic intervertebral disc; [place] [address] Opioid type dependence, continuous (H) [place], [place] [address] [id number] [place], [place] [phone] [facility] Social History Tobacco Use Types Packs/Day Years Used Date Never Assessed Sex Assigned at Date Recorded Not on file documented as of this encounter Last Filed Vital Signs Vital Sign Reading Time Taken Comments Blood Pressure - - Pulse - - Temperature - - Respiratory Rate - - Oxygen Saturation - - Inhaled Oxygen Concentration - - Weight 105.7 kg (233 lb) 10/07/2020 9:36 AM CDT Height 170.2 cm (5' 7) 10/07/2020 9:36 AM CDT Body Mass Index 36.49 10/07/2020 9:36 AM CDT documented in this encounter Medications [...] encounter Progress Notes Marivel Cavazos PA-C - 10/07/2020 9:40 AM CDT PAIN CENTER PROGRESS NOTE [...] Disc Degeneration 2. Chronic pain syndrome 3. Degeneration of thoracic intervertebral disc 4. Opioid Dependence With Continuous Use Pain location and description: See HEALTHCARE NETWORK CONSULTANT note Radiation of pain: Buttocks bilaterally, lower legs. Gait disturbance: None reported, denies recent falls. Denies AD. Exacerbating factors: walking, sitting, standing Alleviating factors: Pain medications, rest, ice Associated symptoms: Sleep disturbance due to pain. Numbness in bilateral hands and feet, legs. Denies weakness, bowel or bladder incontinence, fever/chills, unexplained weight loss. Functional Symptoms: See HEALTHCARE NETWORK CONSULTANT note Adverse effects of medications: Rash/itching. Denies constipation, drowsiness, dizziness, nausea/abdominal symptoms. Current treatment efficacy: Poor. Off opioids see below. Current treatment compliance: Good; denies self-escalation of doses and no early refill requests. UDT appropriate. Keeps appointment follow-ups with pain center. Purchased stationary bike uses 15-30 every morning - better tolerated than walking. Since the last Pain Center visit, he reports hospitalization in [place] for allergic reaction and was taken off most oral medications - see nurse phone call from 09/09/2020 was asked to sign release for medical records. He was admitted 09/07/2020 as he was concerned about Valley Fever but states he was never worked up for this and was told to stop his oral medications to stop his rash/itching. He then went to [place] for a few days to help his elderly parents and then returned back to [place] this month. Upon returning javad to ED 09/18/2020 as he felt burning/itching everywhere in his body: FINAL IMPRESSION: puritus ED COURSE & MEDICAL DECISION MAKING: ED Course as of Sep 18 522MonSep 18, 2020 0210 Patient is an obese 65-year-old male with a history of hypertension, hyperlipidemia, recent admission end of August in [place] for what sounds like to be chest pain shortness of breath and fluid overload. Prior to that admission patient had some nonspecific pruritic eruptions in his arms. There was concern that he may have valley fever and during his admission states that he was never looked atclosely because of his rash. States he was treated with diuretics and discharged home with steroids because of his itchy rash. No fevers, chills, nausea vomiting. No chest pain or trouble breathing. Noleg swelling. Patent states that the rash has gotten significantly worse over the past few days. Incr easing pruritus. States he is also having some dysuria. No vomiting. On arrival he looks well. Vitals are stable. Patient has significant excoriations and redness and inflammation of bilateral antecubital fossa's. Multiple excoriations in patient's lower extremities. No mucous membrane involvement. Nosloughing. No bullae. No abscess or purulence. [SO] 0447 Patient did not have significant relief after the prednisone and Benadryl as well as Pepcid andfluids. Discussion whether not patient like to go home and wait for the steroids to start kicking inversus more medications. Patient is pacing the room and would like more relief. Was initially given 1 mg of Ativan which did not significantly help patient. He continued to pace the room stating that nothing was helping. Appeared incredibly anxious. Given a second milligram of Ativan for symptomatic relief. After that patient became drowsy. States he does feel better. Ice packs were applied to bilateral antecubital fossa's. [SO] 0505 Clinically the rash appears to be consistent with a severe eczema. He does have excoriations tothe antecubital fossa's bilaterally as well as popliteal fossa bilaterally. No palmar or plantar lesions. No bullae that would suggest pemphigus vulgaris. No back lesions that would suggest bullous pemphigoid. He has no skin sloughing that would suggest SJS or TE N. There is no dependent lesions of suggest vasculitis. [SO] 0507 Does not appear to be infectious. No purulence. No significant redness of suggest cellulitis. Patient moved to a recliner and seems to be much more comfortable. [SO] 0521 Patient resting comfortably in the recliner chair. Intermittently bradycardic. Normal blood pressures. Looks much better clinically uncomfortable. [SO] ED Course User Index [SO] Ohl, Cristhian Latif, DO -Patient does not any significant symptoms in his mouth. Saw PCP Dr. Masterson on 09/21/20: ICD-10-CM 1. Heart failure, unspecified HF chronicity, unspecified heart failure type (HC) I50.9 BASIC METABOLIC PANEL BRAIN NATRIURETIC PEPTIDE BASIC METABOLIC PANEL BRAIN NATRIURETIC PEPTIDE 2. HTN (hypertension) I10 metoprolol succinate (TOPROL XL) 50 mg sustained- release tablet furosemide (LASIX) 40 mg tablet BASIC METABOLIC PANEL BASIC METABOLIC PANEL 3. Rash and nonspecific skin eruption R21 AMB CONSULT TO DERMATOLOGY --select region-- predniSONE (DELTASONE) 20 mg tablet DISCONTINUED: predniSONE (DELTASONE) 20 mg tablet 4. Liver nodule K76.89 CT CHEST ABDOMEN PELVIS W 5. Lung nodule R91.1 CT CHEST ABDOMEN PELVIS W Mr. Plunkett'luis Body mass index is 35.44 kg/m??. This is out of the normal range for a 65 y.o. Normal range for ages 18+ is between 18.5 and 24.9. To lose weight we reviewed risks and benefits of appropriate options such as diet, exercise, and medications. Patient's strategy will be self-directed nutrition plan He is off prednisone x 1 week. He states this helped the skin and itching a lot and now is taking hydroxyzine 25 mg three times a day and alternates sometimes with benadryl. Derm - scheduled next week. Yesterday completed CT scan as he was told he had spots on his liver and was reviewed today from 10/06/20 Impression : 1. Old granulomatous disease left lung, both hilum, mid mediastinum, liver and spleen. 2. 2 tiny benign liver cysts. Cholecystectomy. 3. No significant pulmonary or hepatic lesions. 4. Partially calcified left thyroid nodules. Recommend correlation with ultrasound. 5. Atherosclerotic disease. 6. 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 7. Mild diverticulosis. Since being off Vicodin, he states his pain is awful and states is pain is bad and cannot take it.Cannot sleep more than 2 hours per night. Mid and lower back is the worst, doesn't go down into his legs as bad. He states he would like to discuss options for treatment; we review failure of opioids including oxycodone, hydrocodone, methadone, fentanyl, and tapentadol all on his allergy list. We review that these are all similar in chemical make up and mu opioid activity. We review option for buprenorphine for pain and he is interested. Also review medical cannabis trial; he is unsure as he states he knows people who have used marijuana for years and him and his do not want him to be altered from it. He does report some previous opioid withdrawal after hospitalization which he then tapered dose from2 tabs three times a day to 1 tab three times a day to 1 tab two times a day and 1 tab daily. Dumpedremaining doses. He has used his SCS and doesn't feel better with it. Doesn't feel like it does anything. He has setting up to 5 for several days without benefit. He denies any worsening leg symptoms with this. He states he does have pain going down into bilateral feet. He states his buttock muscles hurt so bad and unsure what this is from. He has been icing. Difficulty sleeping due to pain. He is meeting with Ayse today for any recommendations, states he will try one more time but then would like it explanted if no improvement. We have discussed updating lumbar MRI or [...] psychoses, suicidal ideation, substance use/abuse. Objective: Vitals: 10/07/20 0936 BP: 152/77 Pulse: (!) 59 Resp: 16 Physical Exam Constitutional- General appearance: Normal. Well developed, comfortable, overweight, and appearance reflects stated age. No acute distress or pain behaviors noted. Presents alone today. Psychiatric- Judgment and insight: Normal. Speech: Normal rhythm. Thought process: Normal. No abnormal thoughts reported. Alert & Oriented to person, place, and time. Recent and remote memory: Normal. Observed mood: appropriate Respiratory- Breathing is non-labored; normal rhythm and rate. Dermatologic- Exposed skin is excoriated and small erythematous sores bilateral arms in various stages of healing. No sores on face. Musculoskeletal- Gait and station: Ambulates independently. Opioid [place] Precautions: UDT- 06/10/20, results as expected Consent - 04/01/20 Agreement- 04/01/20 Pharmacy- as documented [employer] INS[employer]ANCE CLAIMS ADJUSTER- reviewed 10/07/20 as expected Count- n/a Psychological evaluation n/a MME- currently 0 Pharmacogenetic testing n/a Imaging: EXAM: XR THORACIC SPINE 2 VWS LOCATION: [facility] DATE/TIME: 01/30/2019 9:09 AM ?? INDICATION: lead [...] and was advised to stop taking. Has been off opioids x 3 weeks with increased pain, previous reported withdrawal symptoms have subsided. We discuss other opioid allergies/failures; I advised medical cannabis trial forr pain. Patient is hesitant at this time. We also discuss buprenorphine as a partial mu agonist may be better tolerated, difficult to predict. He is interested in startinglow dose to see if tolerable. Will order belbuca cheek film as currently arms have several sores/rash a patch is not recommended. He is educated on possible risk/side effects. Previously failed neuropathic medications including Gabapentin, lyrica, duloxetine, TCAs, and lamictal - does not wish to start any new medication while out of state. Advised to use NSAIDS with caution per cardiology and max dosing of APAP. Plan: Discontinued Vicodin due to skin rash. Awaiting dermatology visit next week. Will trial Belbuca 75 mcg cheek film use 1 film every 12 hours x 2 weeks, then if no side effects orworsening rash increase to 150 mcg every 12 hours. Call nurse line with any concerns. May take further titrations to help with pain. Information below. Directions for dosing belbuca (buprenorphine buccal film): 1. Open package according to directions. Do not cut or damage the film if using scissors. Do not open the package until ready to use. 2. Use your tongue to wet the inside of the cheek or rinse mouth with water to moisten area prior toplacing belbuca. 3. Hold film with clean, dry fingers against the inside of your cheek with the yellow side facing up. Press and hold for 5 seconds and it should stick to inside of cheek. 4. Leave in place until it has completely dissolved, usually within 30 minutes of applying it. -avoid eating or drinking until the film is dissolved -avoid touching or moving the film with tongue or finger -do not chew or swallow the film. Ok to take hydroxyzine 25 mg 1-2 tabs up to 3 times a day as needed for itching. Do not take with benadryl Ok to take Ibuprofen 600 mg four times a day as needed for pain with food Continue use of SCS - met with Ayse today Will consider medical cannabis trial if needed for pain, no enrollment yet. Follow-up in 4 weeks with Marivel in office Marivel Cavazos PA-C [facility] [address] [place] [phone] 38 minutes spent on the date of the encounter doing chart review, history and exam, documentation, and further activities. Anjali Naylor RN - 10/07/2020 9:40 AM CDT In clinic today to follow up with Marivel STOUT regarding low back pain Pain score: 10 Constant or intermittent What does your pain feel like: constant sharp shooting radiating bilateral legs to feet with numb toes and feet Does the pain interfere with: Work: yes Walking/distance: yes Sleep: yes Daily activities: yes Relationships/social life: yes Mood: yes F= 8 documented in this encounter Miscellaneous Notes Patient Instructions - HE - Marivel Cavazos PA-C - 10/07/2020 9:40 AM CDT Images from the original note were not included. Patient Instructions by Marivel Cavazos PA-C at 10/07/2020 9:40 AM Author: Marivel Cavazos PA-C Service: -- Author Type: Physician Transfer Engineer Filed: 10/07/2020 10:39 AM Date of Service: 10/07/2020 9:40 AM Status: Addendum Call Center Recruiter: Marivel Cavazos PA-C (Physician Transfer Engineer) Related Notes: Original Note by Marivel Cavazos PA-C (Physician Transfer Engineer) filed at 10/07/2020 10:37 AM Discontinued Vicodin due to skin rash. Awaiting dermatology visit next week. Will trial Belbuca 75 mcg cheek film use 1 film every 12 hours x 2 weeks, then if no side effects orworsening rash increase to 150 mcg every 12 hours. Call nurse line with any concerns. May take further titrations to help with pain. Information below. Directions for dosing belbuca (buprenorphine buccal film): 1. Open package according to directions. Do not cut or damage the film if using scissors. Do not open the package until ready to use. 2. Use your tongue to wet the inside of the cheek or rinse mouth with water to moisten area prior toplacing belbuca. 3. Hold film with clean, dry fingers against the inside of your cheek with the yellow side facing up. Press and hold for 5 seconds and it should stick to inside of cheek. 4. Leave in place until it has completely dissolved, usually within 30 minutes of applying it. -avoid eating or drinking until the film is dissolved -avoid touching or moving the film with tongue or finger -do not chew or swallow the film. Ok to take hydroxyzine 25 mg 1-2 tabs up to 3 times a day as needed for itching. Do not take with benadryl Ok to take Ibuprofen 600 mg four times a day as needed for pain with food Continue use of SCS - met with Ayse today Will consider medical cannabis trial if needed for pain, no enrollment yet. Follow-up in 4 weeks with Marivel in office Patient Education Belbuca Buccal Film 0.075 mg Uses For pain. Instructions Do not use if the pouch containing the medicine is torn or damaged. Remove medicine from the foil just before using. Use a clean, dry finger to place the medicine inside your mouth with the yellow side facing against one cheek. Press and hold the medicine in place for 5 seconds and then remove the finger. The medicine should stay in place by itself. Let the medicine dissolve completely. Do not place the medicine over open sores or lesions. Do not cut the sheet. Drink some water to moisten your mouth before using the medicine. Do not swallow, chew, touch, or move the medicine after placing it on your cheek. Avoid eating food or drinking liquids until the medicine has dissolved completely. If your dose is more than 1 sheet, place one sheet on each side of the mouth. Avoid letting the sheets touch each other. It is very important that you take the medicine at about the same time every day. It will work best if you do this. Store at room temperature in a dry place. Do not keep in the bathroom. Keep the medicine away from heat and light. Please ask your doctor, nurse, or pharmacist how to discard unused medicines safely. To reduce constipation, eat high fiber foods, drink plenty of water and exercise. It is important that you keep taking each dose of this medicine on time even if you are feeling well. If you forget to take a dose on time, take it as soon as you remember. If it is almost time for the next dose, do not take the missed dose. Return to your normal dosing schedule. Do not take 2 doses ofthis medicine at one time. Please tell your doctor and pharmacist about all the medicines you take. Include both prescription and [id number] medicines. Also tell them about any vitamins, herbal medicines, or anything else you take for your health. If your symptoms do not improve or they worsen while on this medicine, contact your doctor. Do not suddenly stop taking this medicine. Check with your doctor before stopping. It is very important that you keep all appointments for medical exams and tests while on this medicine. Do not take the medicine more than twice during 24 hours. Cautions This medicine contains an opioid. Though it helps many people, this medicine may sometimes cause addiction, especially if it is used for a long time. This risk for addiction may be higher if you have asubstance use disorder - such as overuse of or addiction to drugs or alcohol. Speak with your doctorabout the benefits and risks of using this medicine. Ask your doctor or pharmacist if you should have naloxone on hand to treat opioid overdose. Teach your family or household members about the signs of an opioid overdose and how to treat it. Tell your doctor and pharmacist if you ever had an allergic reaction to a medicine. Symptoms of an allergic reaction can include trouble breathing, skin rash, itching, swelling, or severe dizziness. Some patients taking this medicine have experienced serious side effects. Please speak with your doctor to understand the risks and benefits associated with this medicine. This medicine is associated with a rare, but serious problem of the liver. Speak to your doctor about the early signs of liver problems and the benefits and risks of using this medicine. Do not use the medication any more than instructed. This medicine may cause dizziness or fainting, especially after exercising or in hot weather. Be very careful when standing or sitting up quickly. If possible, avoid using with marijuana or other medicines that can cause dizziness or drowsiness. These include allergy/cold products, muscle relaxers, sleep aids, and pain relievers. Your ability to stay alert or to react quickly may be impaired by this medicine. Do not drive or operate machinery until you know how this medicine will affect you. Do not drink beverages with alcohol while on this medicine. Call the doctor if there are any signs of confusion or unusual changes in behavior. Tell the doctor or pharmacist if you are , planning to be , or . This medicine can hurt a new baby in the womb. If you become while on this medicine, tell your doctor immediately. Your doctor may switch you to a different medicine. Ask your pharmacist if this medicine can interact with any of your other medicines. Be sure to tell them about all the medicines you take. Please tell all your doctors and dentists that you are on this medicine before they provide care. Do not start or stop any other medicines without first speaking to your doctor or pharmacist. This medicine should be used with caution in patients with breathing difficulties. Call your doctor right away if you notice slow or shallow breathing. Do not share this medicine with anyone who has not been prescribed this medicine. This medicine can cause serious side effects in some patients. Important information from the U.S. Food and Drug Administration (FDA) is available from your pharmacist. Please review it carefully with your pharmacist to understand the risks associated with this medicine. Side Effects The following is a list of some common side effects from this medicine. Please speak with your doctor about what you should do if you experience these or other side effects. ?? constipation ?? dizziness ?? drowsiness or sedation ?? headaches ?? runny nose ?? vomiting If you have any of the following side effects, you may be getting too much medicine. Please contact your doctor to let them know about these side effects. ?? slow heartbeat Call your doctor or get medical help right away if you notice any of these more serious side effects: ?? decreased awareness or responsiveness ?? breathing interruption during sleep ?? shallow, irregular breathing ?? confusion ?? fainting ?? hallucinations (unusual thoughts, seeing or hearing things that are not real) ?? fast or irregular heart beats ?? symptoms of liver damage (such as yellowing of skin or eyes, dark urine, unusual tiredness or weakness; severe stomach or back pain) ?? seizures ?? unusual or unexplained tiredness or weakness A few people may have an allergic reactions to this medicine. Symptoms can include difficulty breathing, skin rash, itching, swelling, or severe dizziness. If you notice any of these symptoms, seek medical help quickly. Extra Please speak with your doctor, nurse, or pharmacist if you have any questions about this medicine. [email or web address] IMPORTANT NOTE: This document tells you briefly how to take your medicine, but it does not tell you all there is to know about it.Your doctor or pharmacist may give you other documents about your medicine. Please talk to them if you have any questions.Always follow their advice. There is a more complete description of this medicine available in [place].Scan this code on your smartphone or tablet or use the web address below. You can also ask your pharmacist for a printout. If you have any questions,please ask your pharmacist. ?? 2020 [employer]. Addendum Note - Anjali Naylor RN - 10/07/2020 9:40 AM CDT Addendum Note by Anjali Naylor RN at 10/07/2020 9:40 AM Author: Anjali Naylor RN Service: -- Author Type: Registered Nurse Filed: 10/07/2020 1:47 PM Date of Service: 10/07/2020 9:40 AM Status: Signed Call Center Recruiter: Anjali Naylor RN (Registered Nurse) Encounter addended by: Anjali Naylor RN on: 10/07/2020 1:47 PM Actions taken: Charge Capture section accepted documented in this encounter Plan of Treatment Upcoming Encounters Date Type Specialty Care Team Description 02/17/2022 Office Visit [place] [id number] [address] [place], [place] [phone] ([facility]) documented as of this encounter Visit Diagnoses Diagnosis Degeneration of lumbar or lumbosacral in tervertebral disc Chronic pain syndrome Degeneration of thoracic intervertebral disc Degeneration of thoracic or thoracolumba r intervertebral disc Opioid type dependence, continuous (H) Opioid type dependence, continuous documented in this encounter Care Teams Tank Tester Relationship Specialty Start Date End Date Marlee Coles MD PCP - General 02/10/15 05/18/[place] [address] [address] [place] [address] Tony Gray MD Referring Physician Orthopedics 10/01/14 Conner Harper MD MD Orthopedics 10/01/[address] [place] [address] documented as of this encounter
--- OUTSIDE RECORDS SUMMARY | 2022-01-27 10:16 | XMS_ITS | Encounter Summary ---
:1955 Author Organization [place] Address [address] [facility] [place] [address] Care Team Providers Name Role Phone Tony Gray MD Unavailable Conner Harper MD Unavailable Marlee Coles MD Primary Care Provider Encounter Details Date Type Department Care Team Description 03/16/2020 Records - [facility] [address] [place] [address] 103 [id number] [place] [address] [phone] (Wo rk) Social History Tobacco Use Types Packs/Day Years Used Date Never Assessed Sex Assigned at Date Recorded Not on file documented as of this encounter Plan of Treatment Upcoming Encounters Date Type Specialty Care Team Description 02/17/2022 Office Visit Pain & [place] [address] [place], [place] [address] (Wo rk) documented as of this encounter Procedures Procedure Name Priority Date/Time Associated Comments Diagnosis AEROBIC BACTERIAL Routine 03/16/2020 10:30 Result s for this CULTURE ROUTINE AM CDT procedure ar e in the results section. CELL COUNT WITH Routine 03/16/2020 10:30 Results for this DIFFERENTIAL FLUID AM CDT procedure are in the results section. ANAEROBIC BACTERIAL Routine 03/16/2020 10:30 Resu lts for this CULTURE ROUTINE AM CDT procedure ar e in the results section. documented in this encounter Results Body fluid, unsp Aerobic Bacterial Culture Routine (03/16/2020 10:30 AM CDT) Component Value Ref Test Analysis Performed At [facility] Range Method Time Signature Culture No Growth 03/19/2020 [facility] 3:27 PM CDT [facility] Gram Stain 1+ Polymorphonuclear 03/19/2020 [facility]ALT H Result leukocytes 3:27 PM CDT [facility] Gram Stain No organisms seen 03/19/2020 HEALTH Result 3:27 PM CDT [facility] Specimen Anatomical Collection Method Collection Time Receive d Time (Source) Location / / Volume Laterality Body fluid BODY FLUID SAMPLE Non-blood 03/16/2020 10:30 2019 3:07 sample / Unknown Collection / AM CDT PM CDT (specimen) Unknown Tony Gray MD LAB - MICRO GENERAL ORDERABL ES Performing Organization Address City/[facility] [place] [address] [address] [facility] Anaerobic Bacterial Culture Routine (03/16/2020 10:30 AM CDT) [facility] Method Time Signature Culture No anaerobic 03/19/2020 [facility]ALTH organisms 7:26 AM CDT [facility] Specimen Anatomical Collection Method Collection Time Receive d Time (Source) Location / / Volume Laterality Body fluid BODY FLUID SAMPLE Non-blood 03/16/2020 10:30 2019 3:07 sample / Unknown Collection / AM CDT PM CDT (specimen) Unknown Tony Gray MD LAB - MICRO GENERAL ORDERABL ES Performing Organization Address City/[facility] [place] [address] [place] [address] [facility] (ABNORMAL) Cell count with differential fluid (03/16/2020 10:30 AM CDT) [facility] Method Time Signature Color Germania 03/16/2020 HEALTH 5:28 PM CDT [facility] Clarity Hazy 03/16/2020 HEALTH 5:28 PM CDT [facility] Total Nucleated 277 (H) 0 - 99 /uL 03/16/2020 HEALTH Cells 5:28 PM CDT [facility] RBC, Fluid <50,000 <50,000 03/16/2020 HEALTH /ul 5:28 PM CDT [facility] % Neutrophils 28 (H) <=25 % 03/16/2020 HEALTH 5:28 PM CDT [facility] % Lymphocytes 68 <=78 % 03/16/2020 HEALTH 5:28 PM CDT [facility] Monocyte % 4 <=71 % 03/16/2020 HEALTH 5:28 PM CDT [facility] Macrophage % 03/16/2020 HEALTH 5:28 PM CDT [facility] Mesothelials, 03/16/2020 HEALTH Fluid 5:28 PM CDT [facility] % Eosinophils 03/16/2020 HEALTH 5:28 PM CDT [facility] % Other Cells 03/16/2020 [facility] 5:28 PM CDT [facility] Specimen Anatomical Collection Method Collection Time Receive d Time (Source) Location / / Volume Laterality Body fluid BODY FLUID SAMPLE Non-blood 03/16/2020 10:30 2019 3:07 sample / Unknown Collection / AM CDT PM CDT (specimen) Unknown Tony Gray MD LAB - BODY FLUIDS ORDERABLES Performing Organization Address City/State/ZIP Code Phon e Number [facility] [address] [address] documented in this encounter Visit Diagnoses Not on filedocumented in this encounter Care Teams Wood Strip Block Floor Installer Relationship Specialty Start Date End Date Marlee Coles MD PCP - General 02/10/15 05/18/21 [place] [address] [place] [address] Tony Gray MD Referring Physician Orthopedics 10/01/14 Conner Harper MD MD Orthopedics 10/01/14 [address] [facility] [address] [place] [address] documented as of this encounter
--- OUTSIDE RECORDS SUMMARY | 2022-01-27 10:16 | XMS_ITS | Encounter Summary ---
:1955 Author Organization [place] Address [address] [place] [address] Care Team Providers Name Role Phone Tony Gray MD Unavailable Conner Harper MD Unavailable Marlee Coles MD Primary Care Provider Encounter Details Date Type Department Care Team Description 11/14/2020 [facility] - [facility] CONVERSION Provider, Histor ical Social History Tobacco Use Types Packs/Day Years Used Date Never Assessed Sex Assigned at Date Recorded Not on file documented as of this encounter Plan of Treatment Upcoming Encounters Date Type Specialty Care Team Description 02/17/2022 Office Visit Pain & [place] [address] [place], [place] [address] (Wo rk) documented as of this encounter Procedures Procedure Name Priority Date/Time Associated Diagnosis Comme nts XR FLUORO TIME 0/1 Routine 08/15/2005 12:00 AM Re sults for this HOUR CUSTODIAL WORKER procedure are i n the results section. documented in this encounter Results XR Fluoro Time 0/1 Hour (08/15/2005 12:00 AM CUSTODIAL WORKER) Anatomical Region Laterality Modality Abdomen/Pelvis Other Specimen (Source) Anatomical Location Collection Method / Collectio n Time Received Time / Laterality Volume Narrative 08/15/2005 12:00 AM CUSTODIAL WORKER See Historical Hospital Medical Record f or documentation Procedure Note Provider, Historical - 11/14/2020Formatt ing of this note might be different from the original. See Historical Hospital Medical Record f or documentation Historical Provider IMG DIAGNOSTIC IMAGING ORDER ABBI documented in this encounter Visit Diagnoses Not on filedocumented in this encounter Care Teams Sander Operator Relationship Specialty Start Date End Date Marlee Coles MD PCP - General 02/10/15 05/18/21 [place] [address] [place] [address] Tony Gray MD Referring Physician Orthopedics 10/01/14 Conner Harper MD MD Orthopedics 10/01/[address] [place], [place] [id number] documented as of this encounter
--- OUTSIDE RECORDS SUMMARY | 2022-01-27 10:16 | XMS_ITS | Encounter Summary ---
:1955 Author Organization [place] Address [address] [place] [address] Care Team Providers Name Role Phone Tony Gray MD Unavailable Conner Harper MD Unavailable Marlee Coles MD Primary Care Provider [phone] Reason for Visit Reason Comments Back Pain Encounter Details Date Type Department Care Team Description 04/01/[address] [facility] Dirk, Iain id type dependence, continuous (H); Pain Center Marivel Hernadez PA-C Chronic pain syndrome; [address] Degeneration of lumbar or lumbosacral intervertebral disc; [place] [address] Lumbar radiculopathy; [place], [place] [address] Degeneration of thoracic intervertebral disc [id number] [place], [place] [phone] [facility] Social History Tobacco Use Types [...] - - Weight 106.6 kg (235 lb) 04/01/2020 10:04 AM CDT Height 172.7 cm (5' 8) 04/01/2020 10:04 AM CDT Body Mass Index 35.73 04/01/2020 10:04 AM CDT documented in this encounter Medications [...] encounter Progress Notes Marivel Cavazos PA-C - 04/01/2020 10:00 AM CDT PAIN CENTER PROGRESS NOTE Subjective: Tremaine Plunkett is a 64 y.o. male who presents for evaluation of mid and low back pain. He has thoracic and lumbar degeneration status post work injury. He has had lumbar epidural steroid injection andlumbar radiofrequency which was effective for pain relief. He did not have relief from thoracic epidural steroid injection. Major issues: 1. Opioid Dependence With Continuous Use 2. Chronic pain syndrome 3. Lumbar Disc Degeneration 4. Lumbar radiculopathy 5. Degeneration of thoracic intervertebral disc Pain location and description: 5/10 constant sharp pain in low back, buttock, and bilateral [...] fever/chills, unexplained weight loss. Functional Symptoms: See SOFTWARE PROGRAMMER note Adverse effects of medications: Denies constipation, [...] pain in bilateral legs, was advised by Ayse oneal that he had settings too high which aggravated his symptoms. He did meet with Ayse Segovia Today for 2 programming adjustments. He states his legs have been most bothersome; only at night and describes a cramping, tight pain right greater than left leg. He states this causes him to get up and change position to relieve pain several times a night. He states the methocarbamol doesn't help. Reports he is ok on magnesium and potassium levels, were checked this summer and last Mg was 2.2 on 12/04/19. He states he feels they are also jumpy and restless, denies any previous diagnosis of RLS or trial of medications to treat. States that he is having right dorsal foot and 4th/5th toes numg and tingling. He spoke with Ayse and does not appear to be related to the SCS implant. He states when he drives in the car his legs are completely numb after less than 1 hour and takes several minutes once he changes position for feeling to return. He will drive to [place] in 5 days as he needs to take frequent breaks. He states his legs have been worse over past 1.5 months without new injury or fall. We have discussed updating lumbar MRI or EMG for leg symptoms. He states he would not do this until he returns from [place] in the spring as he is leaving tomorrow, only returning briefly around [place]. Sleep study - has not followed through yet. Again, does not plan to do this while away, doesn't havea lot of medical support out of state. ?? He states he has been taking up to 2 tabs Vicodin TID prn which has been helpful for managing pain symptoms. Average pain rating is lower than what is has been for several months. He did attempt to lower to 2 tabs two times a day and was unable to tolerate pain levels. Review of Systems Constitutional: Sleep disturbance due [...] psychoses, suicidal ideation, substance use/abuse. Objective: Vitals: 04/01/20 1004 BP: (!) 166/91 Pulse: (!) 45 Resp: 16 Physical Exam Constitutional- General appearance: Normal. Well developed, comfortable able to sit for entire visittoday, overweight, and appearance reflects stated age. No acute distress or pain behaviors noted. Presents alone today. Psychiatric- Judgment and insight: Normal. Speech: Normal rhythm. Thought process: Normal. No abnormal thoughts reported. Alert & Oriented to person, place, and time. Recent and remote memory: Normal. Observed mood: appropriate Respiratory- Breathing is non-labored; normal rhythm and rate. Dermatologic- Exposed skin is clean, dry, and intact to inspection. Musculoskeletal- Gait and station: Ambulates independently. Some difficulty changing from sitting tostanding position. Opioid [place] Precautions: UDT- 06/13/19, results as expected Consent - 04/01/20 Agreement- 04/01/20 Pharmacy- as documented SUPERVISOR RIVETING- reviewed 04/01/20 as expected Count- n/a Psychological evaluation n/a MME- up to 60 Pharmacogenetic testing n/a DIANE 03/26/19 Imaging: EXAM: XR THORACIC SPINE 2 VWS LOCATION: [facility] DATE/TIME: 01/30/2019 9:09 AM ?? INDICATION: [...] no surgery. He has SCS implant and has been doing poorly for pain management reporting increased paresthesias in bilateral LE; he has had reprogramming again with Nevro today. If this isn't successful, will consider bilateral LE EMG or updated MRI for diagnostic evaluation of symptoms in lower legs. He is advised to continue current medicationdosing with trial of neuropathic medication for his leg symptoms at night - previously was on Gabapentin, lyrica, duloxetine, and TCAs. 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 Plan: Continue Vicodin 10/325 mg 2 tabs three times a day As your opioid dose remains stable, I will send electronic refills to the pharmacy for 2 subsequent months until your next appointment so you do not have to call our refill line. The fill dates for your medications are: 04/01/20 & 04/29/20 Check with your pharmacy that all prescriptions [...] needed for itching - refill sent to [facility] Continue methocarbamol 1 tab at night as needed, monitor for drowsiness. Saw Ayse today for reprogramming recommendations. Discussed updated lumbar MRI/EMG if needed when you return from [place] if right leg pain continues to be uncontrolled. Recommend trial of lamictal 25 mg at bedtime x 2 weeks, then increase to 50 mg at bedtime if no sideeffects. Information on side effects given today, call nurse line with any concerns. Opioid agreement and consent form signed today. Discussed bringing these copies and your most recentAfter Visit Summary (AVS) from our appointment to the pharmacy when you are refilling controlled medications to assist with any additional information the pharmacist may require. Follow-up in 10 weeks with Marivel in office Marivel Cavazos PA-C [facility] [address] [facility] [place] [address] Latisha Bautista - 04/01/2020 10:00 AM CDT Patient presents to the clinic today for a follow up with Marivel Cavazos PA-C regarding back pain. Pain score: 5 What does your pain feel like: constant, sharp, aweful Does the pain interfere with: Work: no Walking/distance: yes Sleep: yes Daily activities: yes Relationships/social life: yes Mood: yes F= 5 documented in this encounter Miscellaneous Notes Patient Instructions - HE - Marivel Cavazos PA-C - 04/01/2020 10:00 AM CDT Images from the original note were not included. Patient Instructions by Marivel Cavazos PA-C at 04/01/2020 10:00 AM Author: Marivel Cavazos PA-C Service: -- Author Type: Physician Machine Cleaner Filed: 04/01/2020 10:56 AM Date of Service: 04/01/2020 10:00 AM Status: Addendum Walking Dragline Oiler: Marivel Cavazos PA-C (Physician Machine Cleaner) Related Notes: Original Note by Marivel Cavazos PA-C (Physician Machine Cleaner) filed at 04/01/202010:55 AM Continue Vicodin 10/325 mg 2 tabs three times a day As your opioid dose remains stable, I will send electronic refills to the pharmacy for 2 subsequent months until your next appointment so you do not have to call our refill line. The fill dates for your medications are: 04/01/20 & 04/29/20 Check with your pharmacy that all prescriptions [...] needed for itching - refill sent to [facility] Continue methocarbamol 1 tab at night as needed, monitor for drowsiness. Saw Ayse today for reprogramming recommendations. Discussed updated lumbar MRI/EMG if needed when you return from [place] if right leg pain continues to be uncontrolled. Recommend trial of lamictal 25 mg at bedtime x 2 weeks, then increase to 50 mg at bedtime if no sideeffects. Information on side effects given today, call nurse line with any concerns. Opioid agreement and consent form signed today. Discussed bringing these copies and your most recentAfter Visit Summary (AVS) from our appointment to the pharmacy when you are refilling controlled medications to assist with any additional information the pharmacist may require. Follow-up in 10 weeks with Marivel in office Patient Education Lamotrigine tablets Brand Name: Lamictal What is this medicine? LAMOTRIGINE (la HANNAH tri jeen) is used to control seizures in adults and children with epilepsy and Eric-Gastaut syndrome. It is also used in adults to treat bipolar disorder. How should I use this medicine? Take this medicine by mouth with a glass of water. Follow the directions on the prescription label. Do not chew these tablets. If this medicine upsets your stomach, take it with food or milk. Take yourdoses at regular intervals. Do not take your medicine more often than directed. A special MedGuide will be given to you by the pharmacist with each new prescription and refill. Be sure to read this information carefully each time. Talk to your technician automatic regarding the use of this medicine in children. While this drug may be prescribed for children as young as 2 years for selected conditions, precautions do apply. What side effects may I notice from receiving this medicine? Side effects that you should report to your doctor or health doggy daycare activities director as soon as possible: ?? allergic reactions like skin rash, itching or hives, swelling of the face, lips, or tongue ?? blurred or double vision ?? difficulty walking or controlling muscle movements ?? fever ?? headache, stiff neck, and sensitivity to light ?? painful sores in the mouth, eyes, or nose ?? redness, blistering, peeling or loosening of the skin, including inside the mouth ?? severe muscle pain ?? swollen lymph glands ?? uncontrollable eye movements ?? unusual bruising or bleeding ?? unusually weak or tired ?? vomiting ?? worsening of mood, thoughts or actions of suicide or dying ?? yellowing of the eyes or skin Side effects that usually do not require medical attention (report to your doctor or health doggy daycare activities director if they continue or are bothersome): ?? diarrhea or constipation ?? difficulty sleeping ?? nausea ?? tremors What may interact with this medicine? ?? carbamazepine ?? female hormones, including contraceptive or control pills ?? methotrexate ?? phenobarbital ?? phenytoin ?? primidone ?? pyrimethamine ?? rifampin ?? trimethoprim ?? valproic acid What if I miss a dose? If you miss a dose, take it as soon as you can. If it is almost time for your next dose, take only that dose. Do not take double or extra doses. Where should I keep my medicine? Keep out of reach of children. Store at room temperature between 15 and 30 degrees C (59 and 86 degrees F). Throw away any unused medicine after the expiration date. What should I tell my health care provider before I take this medicine? They need to know if you have any of these conditions: ?? a history of depression or bipolar disorder ?? aseptic meningitis during prior use of lamotrigine ?? folate deficiency ?? kidney disease ?? liver disease ?? suicidal thoughts, plans, or attempt; a previous suicide attempt by you or a family member ?? an unusual or allergic reaction to lamotrigine or other seizure medications, other medicines, foods, dyes, or preservatives ?? or trying to get ?? breast-feeding What should I watch for while using this medicine? Visit your doctor or health doggy daycare activities director for regular checks on your progress. If you take this medicine for seizures, wear a Medic Alert bracelet or necklace. Carry an identification card with information about your condition, medicines, and doctor or health doggy daycare activities director. It is important to take this medicine exactly as directed. When first starting treatment, your dose will need to be adjusted slowly. It may take weeks or months before your dose is stable. You should contact your doctor or health doggy daycare activities director if your seizures get worse or if you have any new types of seizures. Do not stop taking this medicine unless instructed by your doctor or health doggy daycare activities director. Stopping your medicine suddenly can increase your seizures or their severity. Contact your doctor or health doggy daycare activities director right away if you develop a rash while taking this medicine. Rashes may be very severe and sometimes require treatment in the hospital. Deaths from rashes have occurred. Serious rashes occur more often in children than adults taking this medicine. It is more common for these serious rashes to occur during the first 2 months of treatment, but a rash can occur at any time. You may get drowsy, dizzy, or have blurred vision. Do not drive, use machinery, or do anything that needs mental alertness until you know how this medicine affects you. To reduce dizzy or fainting spells, do not sit or stand up quickly, especially if you are an older patient. Alcohol can increase drowsiness and dizziness. Avoid alcoholic drinks. If you are taking this medicine for bipolar disorder, it is important to report any changes in your mood to your doctor or health doggy daycare activities director. If your condition gets worse, you get mentally depressed, feel very hyperactive or manic, have difficulty sleeping, or have thoughts of hurting yourself or committing suicide, you need to get help from your health doggy daycare activities director right away. If you area caregiver for someone taking this medicine for bipolar disorder, you should also report these behavioral changes right away. The use of this medicine may increase the chance of suicidal thoughts or actions. Pay special attention to how you are responding while on this medicine. Your mouth may get dry. Chewing sugarless gum or sucking hard candy, and drinking plenty of water may help. Contact your doctor if the problem does not go away or is severe. Women who become while using this medicine may enroll in the [place] Antiepileptic Drug Registry by calling . This registry collects information about the safetyof antiepileptic drug use during . NOTE:This sheet is a summary. It may not cover all possible information. If you have questions aboutthis medicine, talk to your doctor, pharmacist, or health care provider. Copyright?? 2018 [employer] documented in this encounter Plan of Treatment Upcoming Encounters Date Type Specialty Care Team Description 02/17/2022 Office Visit Pain & [place] [address] [place], [place] [address] (Wo rk) documented as of this encounter Visit Diagnoses Diagnosis Opioid type dependence, continuous (H) Opioid type dependence, continuous Chronic pain syndrome Degeneration of lumbar or lumbosacral in tervertebral disc Lumbar radiculopathy Thoracic or lumbosacral neuritis or radi culitis, unspecified Degeneration of thoracic intervertebral disc Degeneration of thoracic or thoracolumba r intervertebral disc documented in this encounter Care Teams Traveling Operator Relationship Specialty Start Date End Date Marlee Coles MD PCP - General 02/10/15 05/18/21 [place] [address] [place], [place] [address] Tony Gray MD Referring Physician Orthopedics 10/01/14 Conner Harper MD MD Orthopedics 10/01/14 [address] [facility] [address] [place], [place] [address] documented as of this encounter
--- OUTSIDE RECORDS SUMMARY | 2022-01-27 10:16 | XMS_ITS | Encounter Summary ---
:1955 Author Organization [place] Address [address] [place] [address] Care Team Providers Name Role Phone Tony Gray MD Unavailable Conner Harper MD Unavailable Marlee Coles MD Primary Care Provider Encounter Details Date Type Department Care Team Description 11/14/2020 [facility] Provider, Histor ical Social History Tobacco Use Types Packs/Day Years Used Date Never Assessed Sex Assigned at Date Recorded Not on file documented as of this encounter Plan of Treatment Upcoming Encounters Date Type Specialty Care Team Description 02/17/2022 Office Visit Pain & [place] [address] [place], [place] [address] (Wo rk) documented as of this encounter Procedures Procedure Name Priority Date/Time Associated Diagnosis Comme nts XR FLUORO TIME 0/1 Routine 07/25/2005 12:00 AM Re sults for this HOUR COUNTER SUPPLY WORKER procedure are i n the results section. documented in this encounter Results XR Fluoro Time 0/1 Hour (07/25/2005 12:00 AM COUNTER SUPPLY WORKER) Anatomical Region Laterality Modality Abdomen/Pelvis Other Specimen (Source) Anatomical Location Collection Method / Collectio n Time Received Time / Laterality Volume Narrative 07/25/2005 12:00 AM COUNTER SUPPLY WORKER See Historical Hospital Medical Record f or documentation Procedure Note Provider, Historical - 11/14/2020Formatt ing of this note might be different from the original. See Historical Hospital Medical Record f or documentation Historical Provider IMG DIAGNOSTIC IMAGING ORDER ABBI documented in this encounter Visit Diagnoses Not on filedocumented in this encounter Care Teams Manager Asset Relationship Specialty Start Date End Date Marlee Coles MD PCP - General 02/10/15 05/18/21 [place] [address] [place] [address] Tony Gray MD Referring Physician Orthopedics 10/01/14 Conner Harper MD MD Orthopedics 10/01/[address] [place], [place] [id number] documented as of this encounter
--- OUTSIDE RECORDS SUMMARY | 2022-01-27 10:16 | XMS_ITS | Encounter Summary ---
:1955 Author Organization [place] Address [address] [place] [address] Care Team Providers Name Role Phone Tony Gray MD Unavailable Conner Harper MD Unavailable Marlee Coles MD Primary Care Provider Reason for Visit Reason Comments Back Pain Encounter Details Date Type Department Care Team Description 12/10/2020 Hospital Encounter [facility] Alessandro Cavazos neration of lumbar or lumbosacral intervertebral disc; Pain Center Marivel Hernadez PA-C Chronic pain syndrome; [address] [facility] [address] Lumbar radic ulopathy; [place] [address] Degeneration of thoracic intervertebral disc; [place], [place] [address] Opioid type dependence, continuous (H) [address] [place], [place] [phone] [id number] Social History Tobacco Use Types Packs/Day Years Used Date Never Assessed Sex Assigned at Date Recorded Not on file documented as of this encounter Last Filed Vital Signs Vital Sign Reading Time Taken Comments Blood Pressure - - Pulse - - Temperature - - Respiratory Rate - - Oxygen Saturation - - Inhaled Oxygen Concentration - - Weight 105.7 kg (233 lb) 12/10/2020 10:28 AM CDT Height 172.7 cm (5' 8) 12/10/2020 10:28 AM CDT Body Mass Index 35.43 12/10/2020 10:28 AM CDT documented in this encounter Medications at Time of Discharge Medication Sig Dispensed Refills Start Date End Date ibuprofen (ADVIL/MOTRIN) Take 600 mg by mouth 0 0 12/10/2020 03/10/2021 600 MG tablet furosemide (LASIX) 40 MG Take 40 mg by mouth 0 05/19/2021 tablet hydrOXYzine (VISTARIL) 25 Take 25 mg by [...] encounter Progress Notes Marivel Cavazos PA-C - 12/10/2020 10:20 AM CDT PAIN CENTER PROGRESS NOTE Subjective: [...] Chronic pain syndrome 3. Lumbar radiculopathy 4. Degeneration of thoracic intervertebral disc 5. 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 Gait disturbance: None reported, denies recent falls. Denies AD. Exacerbating factors: walking, sitting, standing Alleviating factors: Pain medications, rest, ice Associated symptoms: Sleep disturbance due to pain. Numbness in bilateral hands and feet, legs. Denies weakness, bowel or bladder incontinence, fever/chills, unexplained weight loss. 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 Current treatment efficacy: Poor. Not having pain control with Belbuca yet. Current treatment compliance: Good; denies self-escalation of doses and no early refill requests. UDT appropriate. Keeps appointment follow-ups with pain center. Purchased stationary bike uses 15-30 every morning - better tolerated than walking. Since last visit, he continues with car greaser for body rash. Biopsy results he states were inconclusive, could be one of 2 diagnoses but he didn't fit perfectly with either. He was told they don't know what it is. He was given cream but told not to use on open sores. He tried applying but that removed all his scabs. He is using cerave for dry skin only. He still gets new sores and was told to biopsy those too, questions how much to do for this. Follow-up is scheduled 12/24. Has had 4 visits and 2 biopsies without answers but he states was told it was not a drug induced reaction/rash. He states he has spoken with his PCP and ED physician as well who told him it was not related to his Vicodin, wishes to talk about restarting it. Saw Dr. Chuckie Davis on 12/02/2020: Assessment/Plan: 1. Heart failure, unspecified HF chronicity, unspecified heart failure type (HC) - WI ECG ROUTINE ECG W/LEAST 12 LDS W/I&R - ECHO COMPLETE WO CONTRAST; Future - COMP METABOLIC PANEL - BRAIN NATRIURETIC PEPTIDE - furosemide (LASIX) 40 mg tablet; Take 1 table TWICE a day for a week then once a day thereafter for another month. Follow up in clinic before running out of this medicine. Dispense: 37 Tablet; Refill: 0 2. HTN (hypertension) - furosemide (LASIX) 40 mg tablet; Take 1 table TWICE a day for a week then once a day thereafter for another month. Follow up in clinic before running out of this medicine. Dispense: 37 Tablet; Refill: 0 I reviewed your EKG and it did not show any acute changes. We will schedule an echocardiogram (last one on file was 1 year ago, and you've had worsening symptoms since then). We will re-start your water pill. Take a higher dose for the first week, then go back to lower dose for another month (see prescription instructions). Follow up before you run out of the medication for re-check of your swelling and blood pressure. We will do some blood work today to include BNP (heart failure marker) and kidney and liver functions. Avoid salts in your diet. Chuckie Davis MD .................... 12/02/2020 8:08 AM States the Belbuca film dosing 450 mcg every 12 hours no benefit with increase, states it isn't doing anything for pain control. States possibly headache but doesn't sleep good but unsure if this is related to pain. Taking Tylenol and Ibuprofen three times a day. He states he would be interested in increasing or resuming Vicodin as no one as been able to link his rash to the Vicodin dose specifically, was told by pharmacist it could have been a reaction to the filler used in manufacturing. He met last month with Ayse for SCS recommendations. States he shut it off as he has been having nettie horses at night in his legs, more in the left than his right, he called Ayse but they couldn'tsee him today. He states he has had on and off 3 separate times and then the spasms resume within a day and thinks it is related to the frequencies, was initially told by Ayse it couldn't be but now they are saying it may be related. He states he was at frequency of 3-4 and now he switched to program2 and got them back right away. Last night didn't have any spasms when SCS was off. He is going to keep it off one more night and if no spasms then discuss how to resume it. He feels no benefit or difference when it is off or on, he questions if it should just be explanted. We have discussed updating lumbar MRI or EMG for increased pain symptoms. Sleep study - has not followed through yet. He went to [facility] and found #12 tabs Vicodin 10/325 mg that were from his old prescription. He states Monday morning he took 1 tab at 7 am 1 tab at noon and 1 at 1730 and 1 tab at bedtime. He states that cut pain in half. He states the next day he did the same thing and reduced pain to 3-4/10 which was tolerable. He states he did not have any itching or new sores from this and wants to resume dosing. He states last week his son was putting egress window and reached out to grab it from falling out ofthe trailer and injured his left shoulder. Following orthopedics he states left shoulder injury planning to do MRI at [facility]. He is worried this may require rotator cuff surgery. This is not part of his work comp injury, however discuss the plan around opioid management if he were to have surgery. Review of Systems Constitutional: Sleep disturbance due [...] psychoses, suicidal ideation, substance use/abuse. Objective: Vitals: 12/10/20 1028 BP: 148/70 Pulse: (!) 40 Resp: 16 Physical Exam Constitutional- General appearance: [...] station: Ambulates independently with normal gait. 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 [...] advised no surgery. He has SCS implant but has challenges with programming and is working with Ayse suarez. Have discussed bilateral LE EMG or updated MRI for diagnostic evaluation of symptoms as needed. He has recently had increase in pain secondary to rash/allergic reaction with presumption to Vicodin or one of his oral medications and was advised to stop taking. Has seen derm with multiple biopsies and unclear diagnosis or cause. He has not had relief with Belbuca titration and asks if he can resume Vicodin to see if tolerated without new outbreaks/itching. We discuss other opioid allergies/failures; I advised medical cannabis trial for pain, patient is hesitant at this time due to cost and ability to travel with it. Previously failed neuropathicmedications including Gabapentin, lyrica, duloxetine, TCAs, and lamictal. Advised to use NSAIDS with caution per cardiology and max dosing of APAP. Plan: Discontinue Belbuca 450 mcg. Resume Vicodin 10/325 mg take 1 tab every 4 hours as needed for pain, max 6 tabs/24 hours. Ok to take hydroxyzine 25 mg 1 tab two times a day as needed for itching. Ok to take Ibuprofen 600 mg four times a day as needed for pain with food and alternate with Tylenol1,000 mg 3 times a day - refills sent Continue use of SCS and recommendations with Ayse Freeman release of information for dermatology clinic notes - call us with location and name of derm office with telephone or fax number. Continue with orthopedic recommendations once MRI is completed. If you do need surgery, your surgeonis responsible for managing postoperative pain and may call me with any questions/concerns. Follow-up in 8 weeks with Marivel in office Marivel Cavazos PA-C [facility] [address] [facility] [address] [place] [address] 32 minutes spent on the date of the encounter doing chart review, history and exam, documentation, and further activities. Latisha Bautista - 12/10/2020 10:20 AM CDT Patient presents to the clinic today for a follow up with Marivel Cavazos PA-C. ?? Pain score: 10 What does your pain feel like:??constant, sharp, shooting, radiating, numbness Does the pain interfere with: Work:??yes Walking/distance:??yes Sleep:??yes Daily activities:??yes Relationships/social life:??yes Mood:??yes F=??8 documented in this encounter Miscellaneous Notes Patient Instructions - HE - Marivel Cavazos PA-C - 12/10/2020 10:20 AM CDT Discontinue Belbuca 450 mcg. Resume Vicodin 10/325 mg take 1 tab every 4 hours as needed for pain, max 6 tabs/24 hours. Ok to take hydroxyzine 25 mg 1 tab two times a day as needed for itching. Ok to take Ibuprofen 600 mg four times a day as needed for pain with food and alternate with Tylenol1,000 mg 3 times a day - refills sent Continue use of SCS and recommendations with Nevro Sign release of information for dermatology clinic notes - call us with location and name of derm office with telephone or fax number. Continue with orthopedic recommendations once MRI is completed. If you do need surgery, your surgeonis responsible for managing postoperative pain and may call me with any questions/concerns. Follow-up in 8 weeks with Marivel in office documented in this encounter Plan of Treatment Upcoming Encounters Date Type Specialty Care Team Description 02/17/2022 Office Visit Pain & [place] [address] [place], [place] [address] (Wo rk) documented as of this encounter Visit Diagnoses Diagnosis Degeneration of lumbar or lumbosacral in tervertebral disc Chronic pain syndrome Lumbar radiculopathy Thoracic or lumbosacral neuritis or radi culitis, unspecified Degeneration of thoracic intervertebral disc Degeneration of thoracic or thoracolumba r intervertebral disc Opioid type dependence, continuous (H) Opioid type dependence, continuous documented in this encounter Care Teams 911 Emergency Services Dispatcher Relationship Specialty Start Date End Date Marlee Coles MD PCP - General 02/10/15 05/18/21 [place] [address] [place], [place] [address] Tony Gray MD Referring Physician Orthopedics 10/01/14 Conner Harper MD MD Orthopedics 10/01/14 [facility] [facility] [address] [place], [place] [address] documented as of this encounter
--- OUTSIDE RECORDS SUMMARY | 2022-01-27 10:16 | XMS_ITS | Encounter Summary ---
:1955 Author Organization [place] Address [address] [place] [address] Care Team Providers Name Role Phone Tony Gray MD Unavailable Conner Harper MD Unavailable Marlee Coles MD Primary Care Provider [phone] Reason for Visit Reason Comments Patient/info Update Encounter Details Date Type Department Care Team Description 03/04[facility]2020 [facility] Jessica RN [address] [facility] [address] [place] [address] Social History Tobacco Use Types Packs/Day Years Used Date Never Assessed Sex Assigned at Date Recorded Not on file documented as of this encounter Miscellaneous Notes Telephone Encounter - Marivel Cavazos PA-C - 03/04/2020 10:56 AM CDT Yes ok to refill at 2 tabs three times a day Prn and adjusted quantity back to #168. Telephone Encounter - Marcela Isabel RN - 03/04/2020 9:33 AM CDT Patient calls, voicemail reporting that taking 2 tablets twice a day has not been helpful. Patient plans to go back to taking 2 tabs three times daily. Per last AVS: Continue Vicodin 10/325 mg 1-2 tablet every [...] call for refill can adjust refill accordingly. Call to patient: Reviewed with patient that he has been taking two tabs three times daily since the office visit, he was not able to reduce to 2 tabs twice daily as the pain was not manageable. At that time patient had 20 additional tablets at home. Next refill date will be different based on this report and patient reports that he is not at home to count his tablets as of this phone call. Last refill with start date of 02/03 would last approximately 18 days based on patient reports with an additional 20 tabs at home for another approximately 3 days worth of tabs. Please review and authorize an adjusted refill date or recommendations if not appropriate documented in this encounter Plan of Treatment Upcoming Encounters Date Type Specialty Care Team Description 02/17/2022 Office Visit Pain & [place] [address] [place], [place] [address] (Wo rk) documented as of this encounter Visit Diagnoses Diagnosis Chronic pain syndrome documented in this encounter Care Teams A&P Technician Relationship Specialty Start Date End Date Marlee Coles MD PCP - General 02/10/15 05/18/21 [place] [address] [address] [address] Tony Gray MD Referring Physician Orthopedics 10/01/14 Conner Harper MD MD Orthopedics 10/01/14 [address] [facility] [address] [place] [address] documented as of this encounter
--- OUTSIDE RECORDS SUMMARY | 2022-01-27 10:16 | XMS_ITS | Encounter Summary ---
:1955 Author Organization [facility] Address [address] [place] [address] Care Team Providers Name Role Phone Tony Gray MD Unavailable Conner Harper MD Unavailable Marlee Coles MD Primary Care Provider [phone] Reason for Visit Reason Comments Follow Up Encounter Details Date Type Department Care Team Description 03/26/2019 Hospital Encounter [facility] Codie Cavazos [place] pain syndrome; Pain Center Marivel Hernadez PA-C Degeneration of lumbar or lumbosacral in tervertebral disc; [address] [place] Lumbar radic ulopathy; [place] [address] Degeneration of thoracic intervertebral disc; [place], [place] [address] Chronic, continuous use of opioids [id number] [place], [place] [phone] [id number] Social History Tobacco Use Types Packs/Day Years Used Date Never Assessed Sex Assigned at Date Recorded Not on file documented as of this encounter Last Filed Vital Signs Vital Sign Reading Time Taken Comments Blood Pressure - - Pulse - - Temperature - - Respiratory Rate - - Oxygen Saturation - - Inhaled Oxygen Concentration - - Weight 106.6 kg (235 lb) 03/26/2019 9:59 AM CDT Height 172.7 cm (5' 8) 03/26/2019 9:59 AM CDT Body Mass Index 35.73 03/26/2019 9:59 AM CDT documented in this encounter Medications [...] documented as of this encounter Progress Notes Antonietta Moreno - 03/26/2019 10:00 AM CDT Pt is being seen today by JANET Perry, for refill, DIANE and f/u of 8- constant, sharp, achy back and bilat leg pain. F8 Marivel Cavazos PA-C - 03/26/2019 10:00 AM CDT PAIN CENTER PROGRESS NOTE Subjective: Tremaine Plunkett is a 63 y.o. male who presents for evaluation of mid and low back pain. He has thoracic and lumbar degeneration status post work injury. He has had lumbar epidural steroid injection andlumbar radiofrequency which was effective for pain relief. He did not have relief from thoracic epidural steroid injection. Major issues: 1. Chronic pain syndrome 2. Lumbar Disc Degeneration 3. Lumbar radiculopathy 4. Degeneration of thoracic intervertebral disc 5. Chronic, continuous use of opioids Pain location and description: 8/10 constant awful pain in low back, buttock, and bilateral legs. Function rated 8. At best, pain rated 5/10 at worst 10/10, on average pain rated 6-7/10. Radiation of pain: Buttocks bilaterally, lower legs. Gait disturbance: None reported, denies recent falls. Denies AD. Exacerbating factors: walking, sitting, standing Alleviating factors: Pain medications, standing or changing positions, synera patch, back brace, ice. Associated symptoms: Sleep disturbance due to pain waking on average 1-2. Numbness and weakness in bilateral hands and feet, legs. Denies bowel or bladder incontinence, fever/chills, unexplained weightloss. Functional Symptoms: Pain interferes with sleep, walking, ADLs, relationships/social, sexual health,mood (depressed, angry). Adverse effects of medications: Denies constipation, drowsiness, dizziness, nausea/abdominal symptoms, rash. States some itching from Vicodin, hydroxyzine is very helpful and taking 25 mg three times aday. Current treatment efficacy: Fair. Vicodin 10/325 mg 2 tabs three times a day prn, methocarbamol 500 mg prn, Ibuprofen 400 mg two times a day prn. Current treatment compliance: Good; denies self-escalation of doses and no early refill requests. UDT appropriate. Keeps appointment follow-ups with pain center. Does walking and able to do 4-5 blocks daily and stretching exercise in the morning. Since the last Pain Center visit, the patient denies any use of anticoagulant medications. Denies any ED/urgent care visits. He had SCS trial and implant on 11/29/18. He saw Dr. Loyola on 01/30/19 and thoracic lead x-ray was negative reviewed today: Mr. Plunkett is a 63-year-old man with back pain and leg pain. He had a spinal cord stimulator placed11/29/2018. Recently he was camping and felt that he was getting uncomfortable stimulation in the legs from the stimulator. He felt some twinging and cramping in his calves. He actually fell and twistedhis ankles. Thoracic spine x-rays today showed good positioning of the stimulator electrodes. ?? The LYN oneal was here and interrogated in the system. He felt that the patient was receiving more than double the amount of stimulation if necessary. This could cause cramping in the calves. The stimulator was reprogrammed to much lower energy of stimulation. It is felt that this should not cause him the side effects. We will then gradually increase the stimulation to see if we can get asgood relief of his symptoms as he had during the trial. ?? We will follow-up to see if he is getting good coverage of his pain again and that he is not having any side effects. He reports he has had worsened pain since that visit and SCS is causing him more problems. He is frustrated. He states he received cell phone # from guest experience representative and that he didn't hear back after multiple calls. He states his legs are so painful he wants to cut them off. He reports this is bilateral pain in his knees to feet and that he cannot keep his feet still. He states he turned off the SCS last night and cannot turn it on today despite it being charged. He states the SCS is the worst thing he ever did but he wants to keep working with it before he has it explanted. He states he has been taking 2 tabs Vicodin three times a day and Ibuprofen 600 mg 2 tabs three times a day since the fall. He is not taking any tylenol. He is taking methocarbamol 500 mg before bedtime as too drowsy during the day. He has a medrol dose pack at home that he has not yet started taking.He still plans to reside in [place] for winter months leaving later this week. He is aware that Lyn has some reps in [place], [place] which is a few hours from where he will be staying. Review of Systems Constitutional: Sleep disturbance due [...] psychoses, suicidal ideation, substance use/abuse. Objective: Vitals: 03/26/19 0959 BP: 148/75 Pulse: 60 Weight: (!) 235 lb (106.6 kg) Height: 5' 8 (1.727 m) PainSc: 8 PainLoc: Back Physical Exam Constitutional- General appearance: Well developed, abnormal, uncomfortable but able to sit for entire visit today, overweight, and appearance reflects stated age. Presents [...] difficulty rising from a seated position. 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 INDICATION: [...] hasbeen doing poorly for pain management reporting shocking sensation in feet; he is advised to schedule reprogramming again with Lyn for reprogramming. If this isn't successful, will consider bilateralLE EMG for diagnostic evaluation of symptoms in lower legs. He is advised for increased pain to continue Vicodin dosing as he is, also maximize daily Ibuprofen and Tylenol doses alternating and also using ice. He is advised he may also increase his muscle relaxant dosing to four times a day although th is may cause drowsiness. Addendum: I was able to speak with Francisco Tavera on 03/27/19 at 1515 to discuss patient concerns. He has a call log and reports only calls he received was for date of service 01/30/19 and then on 02/27/19 which was returned. He states he does have a colleague, Cely, in [facility] and could reach out to her if he has established care at a medical facility to assist with reprogramming. He is unsure about why patient is having more parethesias in his bilateral legs at this time. He will call patient to review the upcoming platform changes to batteries in April that are FDA approved to see if burst or other lower density programming would be a better fit. He will also discuss the device notturning on to make sure patient is able to turn it on. He will offer to meet patient in our office by the end of this week if patient is able to make that work before traveling. Plan: Continue Vicodin 10/325 mg 1-2 tablet every 4-6 hours as needed for pain. Max 6 tabs in 24 hours, #168 for 28 days. As your opioid dose remains stable, I will send electronic refills to the pharmacy for 2 subsequent months until your next appointment so you do not have to call our refill line. The fill dates for your medications are: 03/26/19 & 04/23/19 Check with your pharmacy that all prescriptions [...] Methocarbamol 500 mg at bedtime as needed Hydroxyzine for itching - refill sent You may continue over the counter ibuprofen with food up to 2400 mg daily or tylenol up to 3,000 mg daily (remember to calculate each Vicodin tablet has 325 mg of tylenol) for postoperative pain. Please call me with Lyn rep name/cell phone # given so we can contact and figure out the plan for reprogramming and contact in [place]. Follow-up in 8 weeks Marivel Caavzos PA-C [facility] [address] [place] [address] documented in this encounter Miscellaneous Notes Patient Instructions - HE - Marivel Cavazos PA-C - 03/26/2019 10:00 AM CDT Continue Vicodin 10/325 mg 1-2 [...] The fill dates for your medications are: 03/26/19 & 04/23/19 Check with your pharmacy that all prescriptions [...] Methocarbamol 500 mg at bedtime as needed You may continue over the counter ibuprofen with food up to 2400 mg daily or tylenol up to 3,000 mg daily (remember to calculate each Vicodin tablet has 325 mg of tylenol) for postoperative pain. Please call me with Lyn suarez name/cell phone # given so we can contact and figure out the plan for reprogramming and contact in [place]. Follow-up in 8 weeks Marivel documented in this encounter Plan of Treatment Upcoming Encounters Date Type Specialty Care Team Description 02/17/2022 Office Visit Pain & [place] [address] [place], [place] [address] (Wo rk) documented as of this encounter Visit Diagnoses Diagnosis Chronic pain syndrome Degeneration of lumbar or lumbosacral in tervertebral disc Lumbar radiculopathy Thoracic or lumbosacral neuritis or radi culitis, unspecified Degeneration of thoracic intervertebral disc Degeneration of thoracic or thoracolumba r intervertebral disc Chronic, continuous use of opioids Opioid type dependence, continuous documented in this encounter Care Teams Currency Machine Operator Relationship Specialty Start Date End Date Sharyn Marlee Meme Foreman MD PCP - General 02/10/15 05/18/21 [place] [address] [facility] [address] [place], [place] [address] Tony Gray MD Referring Physician Orthopedics 10/01/14 Conner Harper MD MD Orthopedics 10/01/14 [address] [facility] [place], [place] [address] documented as of this encounter
--- OUTSIDE RECORDS SUMMARY | 2022-01-27 10:16 | XMS_ITS | Encounter Summary ---
:1955 Author Organization [facility] Address [address] [place] [address] Care Team Providers Name Role Phone Tony Gray MD Unavailable Conner Harper MD Unavailable Marlee Coles MD Primary Care Provider [phone] Reason for Visit Reason Comments Back Pain Encounter Details Date Type Department Care Team Description 02/04/[address] [facility] Richy Cavazos in syndrome (Primary Dx); Pain Center Marivel Hernadez PA-C Chronic, continuous use of opioids; [address] [place] Degeneration of thoracic intervertebral disc; [place] [address] Degeneration of lumbar intervertebral di sc [place], [place] [address] [id number] [place], [place] [phone] [address] Social History Tobacco Use Types Packs/Day Years Used Date Former Smoker Cigarettes Smokeless Tobacco: Never Used Alcohol Use Standard Drinks/Week Comments Never 0 (1 standard drink = 0.6 oz pure alcoho l) Sex Assigned at Date Recorded Not on file COVID-19 Exposure Response Date Recorded In the last month, have you been in contact with No / Unsure 02/04/2021 10:42 AM CDT someone who was confirmed or suspected to have Coronavirus / COVID-19? documented as of this encounter Last Filed Vital Signs Vital Sign Reading Time Taken Comments Blood Pressure 123/57 02/04/2021 11:07 AM CDT Pulse 31 02/04/2021 11:07 AM CDT Temperature - - Respiratory Rate 18 02/04/2021 11:07 AM CDT Oxygen Saturation - - Inhaled Oxygen Concentration - - Weight 105.7 kg (233 lb) 02/04/2021 11:07 AM CDT Height 172.7 cm (5' 8) 02/04/2021 11:07 AM CDT Body Mass Index 35.43 02/04/2021 11:07 AM CDT documented in this encounter Patient Instructions Patient InstructionsMarivel Cavazos PA-C - 02/04/2021 11:00 AM CDT Continue Vicodin 10/325 mg take 1 tab every 4 hours as needed for pain, max 6 tabs/24 hours. Refill sent for 03/01/2021 Ok to take hydroxyzine 25 mg 1 tab 3 times a day for itching. Ok to take Ibuprofen 600 mg four times a day as needed for pain with food and alternate with Tylenol1,000 mg 3 times a day Continue use of SCS and recommendations with Nevro Return to see tile trimmer for rash Continue with orthopedic recommendations for shoulder surgery - expect the surgeon will manage your postoperative medications. They may call me if needed. Follow-up in 8 weeks with Marivel lagunas or office documented in this encounter Progress Notes Marivel Cavazos PA-C - 02/04/2021 11:00 AM CDT PAIN CENTER PROGRESS NOTE Subjective: Tremaine Plunkett presents for evaluation of mid and low back pain. He has thoracic and lumbar degeneration status post work injury. He has had lumbar epidural steroid injection and lumbar radiofrequencywhich was effective for pain relief. He did not have relief from thoracic epidural steroid injection. He has a Nevro SCS implant. Major issues: 1. Lumbar Disc Degeneration 2. Chronic pain syndrome 3. Lumbar radiculopathy 4. Degeneration of thoracic intervertebral disc 5. Opioid Dependence With Continuous Use Pain location and description: See ELECTRONIC CONSOLE DISPLAY OPERATOR note Radiation of pain: Buttocks bilaterally, lower legs. Gait disturbance: None reported, denies recent falls. Denies AD. Exacerbating factors: walking, sitting, standing Alleviating factors: Pain medications, rest, ice Associated symptoms: Sleep disturbance due to pain. Numbness in bilateral hands and feet, legs. Denies weakness, bowel or bladder incontinence, fever/chills, unexplained weight loss. Functional Symptoms: See ELECTRONIC CONSOLE DISPLAY OPERATOR note Adverse effects of medications: Denies constipation, drowsiness, dizziness, nausea/abdominal symptoms, itching, headache. Current treatment efficacy: Good, feels back pain is well controlled. Current treatment compliance: Good; denies self-escalation of doses and no early refill requests. UDT appropriate. Keeps appointment follow-ups with pain center. Purchased stationary bike uses 15-30 every morning - better tolerated than walking. Since last visit, he continues with tile trimmer for body rash. Biopsy results he states were inconclusive, could be one of 2 diagnoses but he didn't fit perfectly with either. He was told they don't know what it is. He still gets new sores and was told to biopsy those too, questions how much to do for this. He states he was given oral medications to take 6 tabs weekly unsure the name of it, did stop the rash but didn't go back and now the appointments are out 30 days. Has had 4 visits and 2 biopsies without answers but he states was told it was not a drug induced reaction/rash. Discontinued Belbuca and resumed Vicodin, monitoring for rash. He reports less pain which is good, pain levels at 4-5/10. He states he has been through hell so something good happened. Taking 2 tabs in am and 2 tabs in afternoon and 2 at bedtime. He does get drowsiness and sleeps more often; states if pain isn't too severe during the day will try to skip afternoon dose. Will use ice as needed. He states he doesn't want to take too late and miss his bedtime dose. He states he itches but unsure if this is due to medication or his rash. He states he uses a topical spray for the itch. Denies taking benadryl as he is taking hydroxyzine 25 mg capsule with each dose of Vicodin. He met with Ayse for SCS recommendations. Recommend having a lead check after his upcoming surgery.States he is using his implant 24 hours a day and he has not turned it off and feels it is working well with his medication dose. He states when he increases it isn't tolerated so using same programs. He states he hasn't had spasms lately. Following [facility] in [facility] for left shoulder rotator cuff tear, pending surgery. He states surgery is scheduled for 02/11/21 if he is able to. Was going to have surgery in December but when hesaw anesthesiologist he told them he took 2 sips of water and pain medication the morning of surgeryas he was told that was ok and they cancelled his case. He states he did have virtual visit on 01/05/[address] Young: IMPRESSION: ?? 1. There is a small area of mild reversibility in the apical anterior septum and apex. This is suspicious for mild ischemia. Please note that the specificity of this finding may be decreased by the soft tissue attenuation by possible motion artifact. ?? 2. There is no evidence of other areas of significant ischemia or infarction. ?? 3. Normal left ventricular ejection fraction of approximately 57%. ?? DIEGO YOUNG M.D. ?? ECHOCARDIOGRAM He will have another pre-op exam as it is past 30 days. States he still has a rash but was told if he feels ok he can proceed with surgery. He states his left knee got infected and he saw orthopedics as it was hot and stiff on 12/24/20 and he was given antibiotics. He didn't see tile trimmer as it interfered with his visit. He states he just completed antibiotics this past Monday. Will follow-up 02/10. Is aware that surgeon will manage postoperative pain. He has multiple drug allergies. He denies questions or concerns today. Review of Systems Constitutional: Sleep disturbance due to pain. Widespread rash, unknown etiology. Denies fever, chills, night sweats, lethargy, weight loss, weight gain. Musculoskeletal: Positive for mid and lower back pain, leg pain, left shoulder pain. Denies weakness, joint swelling, recent falls. Gastrointestional: Denies difficulty swallowing, abdominal pain, change in appetite, nausea, vomiting, diarrhea, fecal incontinence. Genitourinary: Denies urinary incontinence, dysuria, hematuria, hesitancy, change in libido/erectiledysfunction. Neurologic: Numbness bilateral buttocks and legs to feet. Denies headaches, confusion, seizure, weakness, changes in balance, changes in speech. Psychiatric: Denies depression, anxiety, memory loss, psychoses, suicidal ideation, substance use/abuse. Objective: BP 123/57 Pulse (!) 31 Resp 18 Ht 1.727 m (5' 8) Wt 105.7 kg (233 lb) BMI 35.43 kg/m?? Physical Exam Constitutional- General appearance: Normal. Well [...] station: Ambulates independently with normal gait. 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 Count- n/a Psychological evaluation n/a MME- 40 - 60 Pharmacogenetic testing n/a Imaging: EXAM: XR THORACIC SPINE 2 VWS LOCATION: [facility] DATE/TIME: 01/30/2019 9:09 AM ?? INDICATION: lead [...] the right upper quadrant. Assessment: Tremaine Plunkett presents today for chronic thoracic and lumbar degeneration, [...] advised no surgery. He has SCS implant using again. Have discussed bilateral LE EMG or updated MRI for diagnostic evaluation of symptoms as needed. He has reported reduction in pain secondary to resuming Vicodin along with SCS use. He continues to have itchy rash, has seen derm with multiple biopsies and unclear diagnosis or cause. We discuss other opioid allergies/failures; I advised medical cannabis trial for pain, patient is hesitant at this time due to cost and ability to travel with it. Previously failed neuropathic medications including Gabapentin, lyrica, duloxetine, TCAs, and lamictal. Advised to use NSAIDS with caution per cardiology and max dosing of APAP. He is planning orthopedic surgery for his shoulder and he is advised that surgeon will manage postoperative pain medications if needed outside of his chronic dosing. Plan: Continue Vicodin 10/325 mg take 1 tab every 4 hours as needed for pain, or 2 tabs 2-3 times per day as needed. Max 6 tabs/24 hours. Monitor for drowsiness. Refill sent for 03/01/2021 Ok to take hydroxyzine 25 mg 1 tab 3 times a day for itching. Also can make drowsy, do not drive after taking. Ok to take Ibuprofen 600 mg four times a day as needed for pain with food and alternate with Tylenol1,000 mg 3 times a day Continue use of SCS and recommendations with Ayse Return to see tile trimmer for rash Continue with orthopedic recommendations for shoulder surgery - expect the surgeon will manage your postoperative medications. They may call me if needed. Follow-up in 8 weeks with Marivel lagunas or office Marivel Cavazos PA-C [facility] [address] [place] [address] Latisha Bautista - 02/04/2021 11:00 AM CDT Patient presents to the clinic today for a follow up with Marivel Cavazos PA-C. ?? Pain score:??5 What does your pain feel like:??constant,??sharp,??shooting,??radiating,??numbness Does the pain interfere with: Work:??yes Walking/distance:??yes Sleep:??yes Daily activities:??yes Relationships/social life:??yes Mood:??yes F=??8 documented in this encounter Plan of Treatment Upcoming Encounters Date Type Specialty Care Team Description 02/17/2022 Office Visit Pain & [place] [address] [place], [place] [phone] (Wo rk) documented as of this encounter Visit Diagnoses Diagnosis Chronic pain syndrome - Primary Chronic, continuous use of opioids Opioid type dependence, continuous Degeneration of thoracic intervertebral disc Degeneration of thoracic or thoracolumba r intervertebral disc Degeneration of lumbar intervertebral di sc Degeneration of lumbar or lumbosacral in tervertebral disc documented in this encounter Care Teams Pulp And Paper Tester Relationship Specialty Start Date End Date Marlee Coles MD PCP - General 02/10/15 05/18/21 [place] [address] [place], [place] [id number] Tony Gray MD Referring Physician Orthopedics 10/01/14 Conner Harper MD MD Orthopedics 10/01/[address] [place], [place] [id number] documented as of this encounter
--- OUTSIDE RECORDS SUMMARY | 2022-01-27 10:16 | XMS_ITS | Encounter Summary ---
:1955 Author Organization [facility] Address [address] [place] [address] Care Team Providers Name Role Phone Tony Gray MD Unavailable Conner Harper MD Unavailable Marlee Coles MD Primary Care Provider [phone] Encounter Details Date Type Department Care Team Description 11/14/2020 Records - [facility] CONVERSION Provider, Histor ical Social History Tobacco Use Types Packs/Day Years Used Date Never Assessed Sex Assigned at Date Recorded Not on file documented as of this encounter Plan of Treatment Upcoming Encounters Date Type Specialty Care Team Description 02/17/2022 Office Visit [facility] [place] [address] [place], [place] [address] (Wo rk) documented as of this encounter Procedures Procedure Name Priority Date/Time Associated Diagnosis Comme nts XR FLUORO TIME 0/1 Routine 08/01/2005 12:00 AM Re sults for this [employer] [employer] procedure are i n the results section. documented in this encounter Results XR Fluoro Time 0/1 Hour (08/01/2005 12:00 AM [employer]) Anatomical Region Laterality Modality Abdomen/Pelvis Other Specimen (Source) Anatomical Location Collection Method / Collectio n Time Received Time / Laterality Volume Narrative 08/01/2005 12:00 AM [employer] See Historical Hospital Medical Record f or documentation Procedure Note Provider, Historical - 11/14/2020Formatt ing of this note might be different from the original. See Historical Hospital Medical Record f or documentation Historical Provider IMG DIAGNOSTIC IMAGING ORDER ABBI documented in this encounter Visit Diagnoses Not on filedocumented in this encounter Care Teams Belt Turner Relationship Specialty Start Date End Date Marlee Coles MD PCP - General 02/10/15 05/18/21 [place] [address] [place] [address] Tony Gray MD Referring Physician Orthopedics 10/01/14 Conner Harper MD MD Orthopedics 10/01/[address] [place], [place] [address] documented as of this encounter
--- OUTSIDE RECORDS SUMMARY | 2022-01-27 10:16 | XMS_ITS | Encounter Summary ---
:1955 Author Organization [place] Address [address] [place] [address] Care Team Providers Name Role Phone Tony Gray MD Unavailable Conner Harper MD Unavailable Marivel Cavazos PA-C Unavailable Zhang Masterson Primary Care Provider Reason for Visit Reason Comments RECHECK back pain Encounter Details Date Type Department Care Team Description 05/19/2021 Office Visit [facility] Richy Cavazos in syndrome (Primary Dx); Pain Center Marivel Hernadez PA-C Chronic, continuous use of opioids; [address] Degeneration of thoracic intervertebral disc; [place] [address] Degeneration of lumbar intervertebral di sc; [place], [place] [address] Lumbar radiculopathy [id number] [place], [place] [phone] [id number] Social History Tobacco Use Types Packs/Day Years Used Date Former Smoker Cigarettes Smokeless Tobacco: Never Used Alcohol Use Standard Drinks/Week Comments Never 0 (1 standard drink = 0.6 oz pure alcoho l) Sex Assigned at Date Recorded Not on file COVID-19 Exposure Response Date Recorded In the last month, have you been in contact with No / Unsure 05/19/2021 9:52 AM BLOOD BANK WORKER someone who was confirmed or suspected to have Coronavirus / COVID-19? documented as of this encounter Last Filed Vital Signs Vital Sign Reading Time Taken Comments Blood Pressure 133/70 05/19/2021 10:12 AM BLOOD BANK WORKER Pulse 79 05/19/2021 10:12 AM BLOOD BANK WORKER Temperature - - Respiratory Rate - - Oxygen Saturation - - Inhaled Oxygen Concentration - - Weight - - Height - - Body Mass Index - - documented in this encounter Patient Instructions Patient InstructionsNito Combs - 05/19/2021 10:00 AM CST Images from the original note were not included. Continue Vicodin 10/325 mg take 2 tabs 2-3 times a day as needed for pain. Discuss risk with respiratory depression; if you are short of breath you need to hold the dose and be evaluated. Refill sent for 05/19/21 & 06/16/21. Ok to take hydroxyzine 25 mg 1 tab 3 times a day for itching. Also can make drowsy, do not drive after taking. Discontinue Ibuprofen due to heart disease. Ok to take Tylenol 500 mg 1-2 tabs every 8 hours as needed for pain. Max dose 3,000 mg per day with the Vicodin doses added in. Continue use of SCS and recommendations with Nevro Continue with smasher and electronic coils supervisor Diagnostics: UDT/Blood collected today results are pending. Patient required a random Drug Test due to the need to comply with [place] Model Policy Guidelines and CDC Guideline for the [...] to age, race, gender, socioeconomic status or church affiliation. Test results will be available through [facility] approximately 1 week from collection date. Opioid agreement signed today and copy was offered. Discussed bringing these copies and/or your mostrecent After Visit Summary (AVS) from our appointment to the pharmacy when you are refilling controlled medications to assist with any additional information the pharmacist may require. Follow-up in 8 weeks with pain provider, Yvette tavera preferred. Scheduling to contact sugar. [facility] Number: \[phone] ??? Call with any questions about your care and for scheduling assistance. ??? Calls are returned Monday through Monday between 8 AM and 4:30 PM. We usually get back to you within 2 business days depending on the issue/request. If we are prescribing your medications: ?? For opioid medication refills, call the clinic or send a [employer] message 7 days in advance. Please include: [...] may lead to dismissal from the clinic. D BANK WORKER documented in this encounter Progress Notes Nito Combs - 05/19/2021 10:13 AM CST 05/19/21 1012 PEG: A Thee-Item Scale Assessing Pain Intensity and Interference 0 = No pain / No interference 10 = Pain as bad as you can imagine / Completely interferes What number best describes your pain on average in the past week? 5 What number best describes how, during the past week, pain has interfered with your enjoyment of life? 10 What number best describes how, during the past week, pain has interfered with your general activity? 10 PEG Total Score 8.33 D BANK WORKER Marivel Cavazos PA-C - 05/19/2021 10:00 AM CST Images from the original note were not included. PAIN CENTER PROGRESS NOTE Subjective: Tremaine Plunkett [...] Continuous Use Pain location and description: See BUTTON MACHINE OPERATOR note. Moderate Pain (5) Radiation of pain: Buttocks bilaterally, lower legs. Gait disturbance: None reported, denies recent falls. Denies AD. Exacerbating factors: walking, sitting, standing Alleviating factors: Pain medications, rest, ice Associated symptoms: Sleep disturbance due to pain. Numbness in bilateral hands and feet, legs. Denies weakness, bowel or bladder incontinence, fever/chills, unexplained weight loss. Functional Symptoms: See BUTTON MACHINE OPERATOR note Adverse effects of medications: Denies constipation, drowsiness, dizziness, nausea/abdominal symptoms, itching, headache. Current treatment efficacy: Good, feels back pain is well controlled. Current treatment compliance: Good; denies self-escalation of doses and no early refill requests. UDT appropriate. Keeps appointment follow-ups with pain center. Purchased stationary bike uses 15-30 every morning - better tolerated than walking. Since last visit, has seen smasher for diastolic heart failure - high BP and low pulse rate. Hestates medication changes have occurred and he is doing a little better but frustrated he gets differing opinions and now will see EP for possible ablation. He did see Dr. Nancy Lockett on 04/28/21 with summary of care reviewed: 02/24-02/26/21 [facility]: CHF exacerbation - diuresed extensively (lost 4kg - d/c wt 100.9kg) w/ improvement in CVP, Cr normalized - started on torsemide and labetalol 03/03/21 PCP ordered PFT given ongoing dyspnea - normal - labetalol d/c'd 03/16 2/2 bradycardia ongoing, Ziopatch recommended 03/25/21 Visit: persistent shortness of breath since 2019 despite changes in BP meds. ~1 wk ago, can sleep lying flat now on his side, thinks some help with BP meds. No cough, no h/o VTE, asthma Noted shortness of breath while in [place] the past 2 years, [place]. Hospitalized there 08/2019 w/rash and shortness of breath, thought he had Valley Fever, CXR done but patient doesn't know results, stayed x3d 2/2 HTN. Has ongoing rash intermittently which she states has seen a mink farmer with no concrete diagnosis. 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 Patient reiterated that he is intolerant of CPAP masks secondary to claustrophobia for unclear reasons the past 4 years. He is not willing to have PSG nor trial CPAP at this time d/t this. He may be willing to see a sleep psychologist to discuss claustrophobia issues which I encouraged him to do given his uncontrolled hypertension with sleep apnea likely a contributing factor. Referral to sleep psychologist placed. He will follow up with me as needed. Notify patient allergy panel shows nonspecific allergic trigger (IgE elevated), ANCA neg for vasculitis, CBC stable eosinophils. Today, here - 04/20/21 Cards: EP referral for further PVC suppression options, decrease hydralazine from 100 tid to 50qid, d/c Coreg as was ineffective at suppressing PVCs Discuss the concern with untreated sleep apnea and opioids; he is aware of respiratory depression risk. Advise him to move forward with this evaluation. He has tried to limit doses of Vicodin to BID prn and states if he tries to avoid taking all together his pain escalates and takes him several days to try and get it under control. Last refill was filled 03/01/21 so he has been trying to take less, states he has #20 tabs remaining from last refill. He is avoiding NSAIDS due to CV risk; reports he has been taking APAP as needed and wants a refill. Reports pain as increased with weather change and while in hospital. He is taking Vicodin 10/325 mg 2 tabs BID-TID prn; he denies side effects. States pain has reduced to between 3-5/10 on his dosing which is good for him. He states he is doing more walking now 45 minutes each morning. Plans [place] the strip [place] or ice arena when weather is poor. He met with Ayse for SCS recommendations. States he is using his implant 24 hours a day and he has not turned it off. He states when he increases it isn't tolerated so using same programs. He states he hasn't had spasms lately. He states it doesn't do anything for him, he has met with Ayse again today to reprogram. He states once he is up over 4 he cannot control his leg pain. He states he has to move his legs around to get rid of this discomfort and has to turn it down and then 5-6 hours later improves. He has a setting of 3 consistently. Following [facility] in [facility] for left shoulder rotator cuff tear, had surgery. He states surgery went ok, states he did have infection and had to treat this surgically. Denies current oral antibiotics. He was prescribed oxycodone 5 mg postop #30 tabs. Attending physical therapy twice a weekfor rehab. Unsure if he is wintering in [place] this year due to multiple doctor appointments. Current Outpatient Medications Medication Sig Dispense Refill ??? amLODIPine (NORVASC) 5 MG tablet ??? furosemide (LASIX) 40 MG tablet Take 40 mg by mouth ??? hydrALAZINE (APRESOLINE) 50 MG tablet Take 100 mg by mouth 2 times daily ??? HYDROcodone-acetaminophen (NORCO) 5-325 MG tablet Take 2 tablets by mouth ??? hydrOXYzine (VISTARIL) 25 MG capsule Take 1 capsule (25 mg) by mouth 3 times daily as needed foritching 90 capsule 1 ??? methocarbamol (ROBAXIN) 500 MG tablet Take by mouth 4 times daily as needed for muscle spasms ??? torsemide (DEMADEX) 20 MG tablet ??? hydrALAZINE (APRESOLINE) 10 MG tablet TAKE 2 TABLET BY MOUTH FOUR TIMES DAILY WITH MEALS AND AT AT BEDTIME ??? labetalol (NORMODYNE) 300 MG tablet (Patient not taking: Reported on 05/19/2021) ??? oxyCODONE (ROXICODONE) 5 MG tablet TAKE 1 TO 2 TABLETS BY MOUTH EVERY 4 HOURS NEEDED (Patientnot taking: Reported on 05/19/2021) Review of Systems Constitutional: Sleep disturbance due to pain. Denies fever, chills, night sweats, lethargy, weight loss, weight gain. Denies current SOB since diuretic dose changed. Musculoskeletal: Positive for mid and lower back [...] psychoses, suicidal ideation, substance use/abuse. Objective: BP 133/70 (BP Location: Left arm, Patient Position: Sitting, Cuff Size: Adult Regular) Pulse 79 Physical Exam Constitutional- General appearance: Normal. Well [...] station: Ambulates independently with normal gait. Opioid Mcnary Precautions: UDT- Collected 05/19/2021, results pending Agreement- 05/19/2021 Pharmacy- as documented CARDIOVASCULAR RN- reviewed 05/19/2021 expected Count- n/a Psychological evaluation n/a MME- 40 - 60 Pharmacogenetic testing n/a Imaging: EXAM: XR THORACIC SPINE 2 VWS LOCATION: [facility] DATE/TIME: 01/30/2019 9:09 AM ?? INDICATION: [...] of symptoms as needed. He has reported stble pain secondary to Vicodin along with SCS use. He is advised about risks with opioids and respiratory depression; he is to pursue sleep apnea evaluation further as we discussed this today. He is also to hold the dose if he has SOB or respiratory symptoms. I advised medical cannabis trial for pain, patient is hesitant at this time due to cost and ability to travel with it as he typically [place] in [place]. Pr eviously failed neuropathic medications including Gabapentin, lyrica, duloxetine, TCAs, and lamictal. He cannot take NSAIDS any longer due to CV risk; advise APAP and review max daily dosing. Discuss this provider is leaving the pain center as of 06/16/21 and to continue care with another provider, patient prefers the [place] location due to commute. He states he will ask PCP Dr. Masterson about managing opioid refills, however with SCS wants to maintain visits with pain center as well. Plan: Continue Vicodin 10/325 mg take 2 tabs 2-3 times a day as needed for pain. Discuss risk with respiratory depression; if you are short of breath you need to hold the dose and be evaluated. Refill sent for 05/19/21 & 06/16/21. Ok to take hydroxyzine 25 mg 1 tab 3 times a day for itching. Also can make drowsy, do not drive after taking. Discontinue Ibuprofen due to heart disease. Ok to take Tylenol 500 mg 1-2 tabs every 8 hours as needed for pain. Max dose 3,000 mg per day with the Vicodin doses added in. Continue use of SCS and recommendations with Nevro Continue with smasher and electronic coils supervisor Diagnostics: UDT/Blood collected today results are pending. Patient required a random Drug Test due to the need to comply with [facility] Model Policy Guidelines and CDC Guideline for the [...] to age, race, gender, socioeconomic status or church affiliation. Test results will be available through [facility] approximately 1 week from collection date. Opioid agreement signed today and copy was offered. Discussed bringing these copies and/or your mostrecent After Visit Summary (AVS) from our appointment to the pharmacy when you are refilling controlled medications to assist with any additional information the pharmacist may require. Follow-up in 8 weeks with pain provider, [place] location preferred. Scheduling to contact patient. Marivel Cavazos PA-C [facility] [address] [place] [address] 40 minutes spent on the date of the encounter doing chart review, history and exam, documentation,and further activities. D BANK WORKER Nito Combs - 05/19/2021 10:00 AM CST UDS - 05/2020 CSA done 04/01/2020 hydrocodone at 0800 this am D BANK WORKER documented in this encounter Miscellaneous Notes Addendum Note - Nito Combs - 05/19/2021 10:00 AM BLOOD BANK WORKER Addended by: NITO COMBS on: 05/19/2021 01:03 PM Modules accepted: Orders D BANK WORKER documented in this encounter Plan of Treatment Upcoming Encounters Date Type Specialty Care Team Description 02/17/2022 Office Visit [facility] [place] [address] [place], [place] [address] (Wo rk) documented as of this encounter Procedures Procedure Name Priority Date/Time Associated Comments Diagnosis URINE CREATININE FOR Routine 05/20/2021 9:53 AM Chronic pain R esults for this DRUG SCREEN PANEL BLOOD BANK WORKER syndrome procedure are in the results section. URINE CREATININE FOR Routine 05/20/2021 9:53 AM Chronic pain R esults for this DRUG SCREEN PANEL BLOOD BANK WORKER syndrome procedure are in the results section. URINE DRUG Routine 05/20/2021 9:53 AM Chronic pain Results f or this CONFIRMATION PANEL BLOOD BANK WORKER syndrome procedure are in the results section. DRUG CONFIRMATION Routine 05/20/2021 9:53 AM Chronic pain Resu lts for this PANEL URINE WITH BLOOD BANK WORKER syndrome procedure a re in CREAT the results section. THC CONFIRMATION Routine 05/20/2021 9:53 AM Chronic pain Resul ts for this QUANTITATIVE URINE BLOOD BANK WORKER syndrome procedure are in the results section. ETHYL GLUCURONIDE Routine 05/20/2021 9:53 AM Chronic pain Resu lts for this URINE (DO NOT ORDER. BLOOD BANK WORKER syndrome procedu re are in ORDER [id number]) the results section. ETHANOL URINE Routine 05/20/2021 9:53 AM Chronic pain Results for this BLOOD BANK WORKER syndrome procedure are i n the results section. CANNABINOIDS Routine 05/20/2021 9:53 AM Chronic pain Results f or this QUALITATIVE URINE BLOOD BANK WORKER syndrome procedure are in the results section. BARBITURATES Routine 05/20/2021 9:53 AM Chronic pain Results f or this QUALITATIVE URINE BLOOD BANK WORKER syndrome procedure are in the results section. documented in this encounter Results Urine Creatinine for Drug Screen Panel (05/20/2021 9:53 AM BLOOD BANK WORKER) P athologist Signature Creatinine 17 mg/dL 05/20/2021 [facility] Urine for Drug 10:08 PM BLOOD BANK WORKER Screen Comment: The reference range has not bee n established for creatinine in random urines. The results should be integrated into the clinical context for interpretation. Specimen Anatomical Collection Method Collection Time Receive d Time (Source) Location / / Volume Laterality Urine URINE SPECIMEN / Non-blood 05/20/2021 9:53 AM 05/20 9:24 Unknown Collection / BLOOD BANK WORKER PM BLOOD BANK WORKER Unknown Marivel Cavazos PA-C LAB - URINE ORDERABLES Performing Organization Address [facility] [place] Phon e Number [place] [address] [phone] [place] [address], [facility] [phone] [place] [address]. Urine Creatinine for Drug Screen Panel (05/20/2021 9:53 AM BLOOD BANK WORKER) P athologist Signature Creatinine 17 mg/dL 05/20/2021 [facility] Urine for Drug 10:08 PM BLOOD BANK WORKER Screen Comment: The reference range has not bee n established for creatinine in random urines. The results should be integrated into the clinical context for interpretation. Specimen Anatomical Collection Method Collection Time Receive d Time (Source) Location / / Volume Laterality Urine URINE SPECIMEN / Non-blood 05/20/2021 9:53 AM 05/20 9:24 Unknown Collection / BLOOD BANK WORKER PM BLOOD BANK WORKER Unknown Marivel Cavazos PA-C LAB - URINE ORDERABLES Performing Organization Address City/[facility]/ZIP Code [place] Number [place] [address] [place] [place] [address], [facility] [phone] [place] [address]. (ABNORMAL) Urine Drug Confirmation Panel (05/20/2021 9:53 AM BLOOD BANK WORKER) Patholo gist Method Time Signature Dihydrocodeine 210 (H) <50 ng/mL 05/26/2021 [facility] ng/mL 3:34 PM BLOOD BANK WORKER SPECIAL CHEM Dihydrocodeine 1,235 Absent 05/26/2021 [facility] ng/mg 3:34 PM BLOOD BANK WORKER SPECIAL CHEM {creat} Comment: Hydromorphone and dihydrocodein e are expected metabolites of hydrocodone. Hydromorphone and dihydrocodeine are als o available as scheduled prescription medications. Hydrocodone ng/mL 1,240 (H) <50 ng/mL 05/26/2021 3:34 PM [facility] BLOOD BANK WORKER CHEM Hydrocodone 7,294 Absent ng/mg 05/26/2021 3:34 PM [facility] {creat} BLOOD BANK WORKER CHEM Comment: Sources of hydrocodone include scheduled prescription medications. Hydromorphone and dihydrocodeine are exp ected metabolites of hydrocodone. Hydromorphone and dihydrocodeine are als o available as scheduled prescription medications. Hydromorphone ng/mL 160 (H) <50 ng/mL 05/26/2021 3:34 PM [facility] BLOOD BANK WORKER CHEM Hydromorphone 941 Absent ng/mg 05/26/2021 3:34 PM [facility] {creat} BLOOD BANK WORKER CHEM Comment: Hydromorphone may be present as a metabolite of morphine. Concentrations of hydromorphone rarely exceed 5% of the mo rphine concentration when this is the source of hydromorphone. Hydromorphone and dihy drocodeine are expected metabolites of hydrocodone. Hydromorphone and dihydroco deine are also available as scheduled prescription medications. Specimen Anatomical Collection Method Collection Time Receive d Time (Source) Location / / Volume Laterality Urine URINE SPECIMEN / Non-blood 05/20/2021 9:53 AM 05/20 9:24 Unknown Collection / BLOOD BANK WORKER PM BLOOD BANK WORKER Unknown Narrative [facility] CHEM - 05/26/2021 3:34 P M BLOOD BANK WORKER This test was developed and its performa nce characteristics determined by the [facility], ??Special Chemistry Laboratory. It has not been cleared or approved by the FDA. The laboratory is regulated under CLIA as qualified to perform high-complexity benjamin ting. This test is used for clinical purposes. It should not be regarded as i nvestigational or for research. Marivel Cavazos PA-C LAB - URINE ORDERABLES Performing Organization Address City/State/ZIP Code Phon e Number SPECIAL DR[facility] Special [place] [address] [address], [address] [facility] [place] [address], CHEMISTRY [place] [address] [facility], [address] Cannabinoids qualitative urine (05/20/2021 9:53 AM BLOOD BANK WORKER) [facility] Method Time Signature Cannabinoids Screen Screen 05/20/2021 [facility] U[facility] Negative Negative 10:08 PM LABORATORY BLOOD BANK WORKER Comment: Drug Screening Threshold THC Metabolite ? 50 ng/mL Screening results are to be used only fo r medical purposes. Unconfirmed screening results must not b e used for non- medical purposes. Creatinine Urine mg/dL 17 mg/dL 05/20/2021 10:08 PM BLOOD BANK WORKER O LABORATORY Comment: Urine very dilute; suggest garett llection. Specimen Anatomical Collection Method Collection Time Receive d Time (Source) Location / / Volume Laterality Urine URINE SPECIMEN / Non-blood 05/20/2021 9:53 AM 05/20 9:24 Unknown Collection / BLOOD BANK WORKER PM BLOOD BANK WORKER Unknown Marivel Cavazos PA-C LAB - URINE ORDERABLES Performing Organization Address [facility]/State/ZIP Code Phon e Number [facility] [place] [address] [facility] [place], [place] [phone] [place] [address] [place] [address] Ethyl Glucuronide Urine (05/20/2021 9:53 AM BLOOD BANK WORKER) [facility] Method Time Signature Ethyl Not Detected ng/mg 05/25/2021 [facility] Glucuronide creat 4:07 PM BLOOD BANK WORKER X Urine Ethanol Negative 05/25/2021 [facility] Biomarkers 4:07 PM BLOOD BANK WORKER X Ethyl Sulfate Not Detected ng/mg 05/25/2021 [facility] creat 4:07 PM BLOOD BANK WORKER X Level of Comment 05/25/2021 [facility] Detection: 4:07 PM BLOOD BANK WORKER X Comment: Testing Threshold: ??ETG, 500 ng/mL; ETS , 250 ng/mL ? ' This test was developed and its performa nce characteristics determined by [facility]. ??It has not been cleared or approved by the Food and Drug Administration. Specimen Anatomical Collection Method Collection Time Receive d Time (Source) Location / / Volume Laterality Urine URINE SPECIMEN Non-blood 05/20/2021 9:53 AM 021 9:24 OBTAINED BY CLEAN Collection / BLOOD BANK WORKER PM BLOOD BANK WORKER CATCH PROCEDURE / Unknown Unknown Narrative [facility] - 05/25/2021 4:07 PM BLOOD BANK WORKER Performed at: ??01 - [facility] [address] [place], [place] ??[address] [address] Centrifuge Separator Tender: Becky Hawkins [facility], Phone: ??[phone] Marivel Cavazos PA-C LAB - URINE ORDERABLES Performing Organization Address City/[facility]/ZIP Code Phon e Number [facility] [address] [place] [address] [employer] [address] Barbiturates qualitative urine (05/20/2021 9:53 AM BLOOD BANK WORKER) [facility] gist Method Time Signature Barbiturates Screen Screen 05/21/2021 [facility] Urine Negative Negative 12:23 PM BLOOD BANK WORKER Comment: Cutoff for a negative barbitura te is 200 ng/mL or less. Specimen Anatomical Collection Method Collection Time Receive d Time (Source) Location / / Volume Laterality Urine URINE SPECIMEN / Non-blood 05/20/2021 9:53 AM 05/20 9:24 Unknown Collection / BLOOD BANK WORKER PM BLOOD BANK WORKER Unknown Marivel Cavazos PA-C LAB - URINE ORDERABLES Performing Organization Address City/State/ZIP Code [place] [address] [phone] [facility] [facility], [address] Ethanol urine (05/20/2021 9:53 AM BLOOD BANK WORKER) Patholo gist Method Time Signature Ethanol Urine Screen Screen 05/21/2021 [facility] Negative Negative 12:22 PM BLOOD BANK WORKER Comment: Cutoff for a negative urine eth anol is 0.05 g/dL or less. Specimen Anatomical Collection Method Collection Time Receive d Time (Source) Location / / Volume Laterality Urine URINE SPECIMEN / Non-blood 05/20/2021 9:53 AM 05/20 9:24 Unknown Collection / BLOOD BANK WORKER PM BLOOD BANK WORKER Unknown Marivel Cavazos PA-C LAB - URINE ORDERABLES Performing Organization Address City/State/ZIP [place] [address] Lab [address] [facility] [address] Building, Room 3-580 documented in this encounter Visit Diagnoses Diagnosis Chronic pain syndrome - Primary Chronic, continuous use of opioids Opioid type dependence, continuous Degeneration of thoracic intervertebral disc Degeneration of thoracic or thoracolumba r intervertebral disc Degeneration of lumbar intervertebral di sc Degeneration of lumbar or lumbosacral in tervertebral disc Lumbar radiculopathy Thoracic or lumbosacral neuritis or radi culitis, unspecified documented in this encounter Care Teams Merchandising Stock Associate Relationship Specialty Start Date End Date Zhang Masterson PCP - General Family Medicine 05/19/[address] [place] [id number] Tony Gray MD Referring Physician Orthopedics 10/01/14 Conner Harper MD MD Orthopedics 10/01/[address] [place], [place] [address] Marivel Cavazos, Assigned Surgical Provider 1 MATT [address] [facility] [address] [place] [address] documented as of this encounter
--- OUTSIDE RECORDS SUMMARY | 2022-01-27 10:16 | XMS_ITS | Encounter Summary ---
:1955 Author Organization [place] Address [address] [facility] [place] [address] Care Team Providers Name Role Phone Tony Gray MD Unavailable Conner Harper MD Unavailable Marlee Coles MD Primary Care Provider Encounter Details Date Type Department Care Team Description 10/07/2020 Ambulatory - [facility] Pain Anjali Naylor, Center RN [address] [facility] [address] [place] [address] Social History Tobacco Use Types Packs/Day Years Used Date Never Assessed Sex Assigned at Date Recorded Not on file documented as of this encounter Plan of Treatment Upcoming Encounters Date Type Specialty Care Team Description 02/17/2022 Office Visit Pain & [place] [address] [place], [place] [address] (Wo rk) documented as of this encounter Visit Diagnoses Not on filedocumented in this encounter Care Teams Durability Technician Relationship Specialty Start Date End Date Marlee Coles MD PCP - General 02/10/15 05/18/21 [place] [address] [address] [place] [address] Tony Gray MD Referring Physician Orthopedics 10/01/14 Conner Harper MD MD Orthopedics 10/01/[address] [place] [address] documented as of this encounter
--- OUTSIDE RECORDS SUMMARY | 2022-01-27 10:16 | XMS_ITS | Encounter Summary ---
:1955 Author Organization [place] Address [address] [place] [address] Care Team Providers Name Role Phone Tony Gray MD Unavailable Conner Harper MD Unavailable Marlee Coles MD Primary Care Provider [phone] Encounter Details Date Type Department Care Team Description 06/10/2020 Hospital Encounter [facility] Jose Manuelguilhermetanmayana luisaCodie [place] pain syndrome; Pain Center Marivel Hernadez PA-C Chronic, continuous use of opioids; [address] [facility] [address] Degeneration of lumbar or lumbosacral intervertebral disc; [address] Lumbar radiculopathy [place], [place] [address] [address] [place], [place] [phone] [address] Social History Tobacco Use Types Packs/Day Years Used Date Never Assessed Sex Assigned at Date Recorded Not on file documented as of this encounter Last Filed Vital Signs Vital Sign Reading Time Taken Comments Blood Pressure - - Pulse - - Temperature - - Respiratory Rate - - Oxygen Saturation - - Inhaled Oxygen Concentration - - Weight 106.6 kg (235 lb) 06/10/2020 10:40 AM GAS MASK INSPECTOR Height 172.7 cm (5' 8) 06/10/2020 10:40 AM GAS MASK INSPECTOR Body Mass Index 35.73 06/10/2020 10:40 AM GAS MASK INSPECTOR documented in this encounter Medications at Time [...] this encounter Progress Notes Latisha Bautista - 06/10/2020 11:00 AM CST Patient presents to the clinic today for a follow up with Marivel Cavazos PA-C regarding back pain. ?? Pain score:??5 What does your pain feel like:??constant, sharp, aweful Does the pain interfere with: Work:??no Walking/distance:??yes Sleep:??yes Daily activities:??yes Relationships/social life:??yes Mood:??yes F=??8 Marivel Lewis PA-C - 06/10/2020 11:00 AM CST PAIN CENTER PROGRESS NOTE Subjective: [...] a Nevro SCS implant. Major issues: 1. Chronic pain syndrome 2. Chronic, continuous use of opioids 3. Lumbar Disc Degeneration 4. Lumbar radiculopathy Pain location and description: 5/10 constant sharp [...] fever/chills, unexplained weight loss. Functional Symptoms: See TECHNICAL PROFESSIONAL note Adverse effects of medications: Denies constipation, [...] was negative. He met with Ayse Kong today for programming adjustments. He states as long as he keeps settings lower to 3-4 he has been doing a bit better. He charges once per week. Hedoes have it on 24 hours a day. Right leg pain and tingling, worse with sitting prolongded. Posterior down leg to foot. He states less nettie horses in leg riding bike more. 20 minutes in am and pm, walking 1 mile as heis wintering in [place] near [facility]. He drove 3 days to get home this week and will stay through holidays and return to [place] next week. He plans to do next visit virtually. Hasn't had to seek any medical care out of state. Last visit recommended titration of lamictal for nerve pain - he reports he didn't like it and made him sleepy and bad dreams so he discontinued, unable to answer how long he was taking it but estimates less than a week. Disposed of remaining medication. We have discussed updating lumbar MRI or EMG for leg symptoms. He states he would not do this until he returns from [place] in the spring as he only returning briefly for [place]. Sleep study - has not followed through yet. Again, does not plan to do this while away, doesn't havea lot of medical support out of state. ?? He states he has been taking up to 2 tabs Vicodin TID prn which has been helpful for managing pain symptoms. He is trying to stay on schedule with dose at 0700, repeating around 1500, and then before bedtime. Is using some additional APAP as was advised by electrical apprentice this is safer than Ibuprofen. Average pain rating is lower than what is has been for several months sometimes 4/10 which he attributes to medication use. He did attempt to lower to 2 [...] psychoses, suicidal ideation, substance use/abuse. Objective: Vitals: 06/10/20 1040 BP: (!) 164/96 Pulse: 68 Resp: 18 Physical Exam Constitutional- General appearance: Normal. Well developed, overweight, and appearance reflects stated age. No [...] inspection. Musculoskeletal- Gait and station: Ambulates independently. Opioid [place] Precautions: UDT- Collected 06/10/20, results pending Consent - 04/01/20 Agreement- 04/01/20 Pharmacy- as documented [facility] PICKLING PACKER- reviewed 06/10/20 as expected Count- n/a Psychological evaluation n/a MME- up to 60 Pharmacogenetic testing n/a Imaging: EXAM: XR THORACIC SPINE 2 VWS LOCATION: [facility] DATE/TIME: 01/30/2019 9:09 AM ?? INDICATION: lead [...] has SCS implant and has been doing somewhat better for pain management with reprogramming with Nevro today. Have discussed bilateral LE EMG or updated MRI for diagnostic evaluation of symptoms in lower legs as needed. He is advised to continue current medication dosing with refills provided and UDT collected. Previously was on Gabapentin, lyrica, duloxetine, TCAs, and lamictal. Advised [...] The fill dates for your medications are: 06/10/20 & 07/08/2020 Check with your pharmacy that all prescriptions [...] to include in the total daily dose. I did send this into pharmacy today. Ok to take hydroxyzine 25 mg 1-2 up to 3 times a day as needed for itching - refill sent to [facility] Continue methocarbamol 1 tab at night as needed, monitor for drowsiness. Saw Ayse today for reprogramming recommendations. Discontinued lamictal due to side effects. Already disposed of medication. Diagnostics: UDT/Blood collected today results are pending. Patient required a random Drug Test due to the need to comply with [facility] Model Policy Guidelines and CDC Guideline for [...] to age, race, gender, socioeconomic status or yazidism affiliation. Follow-up in 8-10 weeks with Marivel Cavazos PA-C [facility] [address] [facility] [place] [address] MASK INSPECTOR documented in this encounter Miscellaneous Notes Patient Instructions - HE - Marivel Cavazos PA-C - 06/10/2020 11:00 AM GAS MASK INSPECTOR Continue Vicodin 10/325 mg 2 tabs three times a day As your opioid dose remains stable, I will send electronic refills to the pharmacy for 2 subsequent months until your next appointment so you do not have to call our refill line. The fill dates for your medications are: 06/10/20 & 07/08/2020 Check with your pharmacy that all prescriptions [...] to include in the total daily dose. I did send this into pharmacy today. Ok to take hydroxyzine 25 mg 1-2 up to 3 times a day as needed for itching - refill sent to [facility] Continue methocarbamol 1 tab at night as needed, monitor for drowsiness. Saw Ayse today for reprogramming recommendations. Discontinued lamictal due to side effects. Already disposed of medication. Diagnostics: UDT/Blood collected today results are pending. [...] to age, race, gender, socioeconomic status or yazidism affiliation. Follow-up in 8-10 weeks with Marivel lagunas MASK INSPECTOR documented in this encounter Plan of Treatment Upcoming Encounters Date Type Specialty Care Team Description 02/17/2022 Office Visit Pain & [place] [address] [address] [place], [place] [address] (Wo rk) documented as of this encounter Procedures Procedure Name Priority Date/Time Associated Comments Diagnosis DRUG CONFIRMATION Routine 06/10/2020 2:23 PM Resu lts for this PANEL URINE WITH GAS MASK INSPECTOR procedure a re in CREAT the results section. documented in this encounter Results Drug Confirmation Panel Urine with Creat (06/10/2020 2:23 PM GAS MASK INSPECTOR) Component Value Ref Test Analysis Performed At [facility] gist Range Method Time Signature Methadone (cutoff Not 06/15/2020 [facility] 150 ng/mL) Detected 1:07 PM GAS MASK INSPECTOR LABORATORIES Propoxyphene Not 06/15/2020 [facility] (cutoff 300 ng/mL) Detected 1:07 PM GAS MASK INSPECTOR LABORATOR [facility] Tramadol (cutoff Not 06/15/2020 [facility] 100 ng/mL) Detected 1:07 PM GAS MASK INSPECTOR LABORATORIES Benzoylecgonine Not 06/15/2020 [facility] (cutoff 150 ng/mL) Detected 1:07 PM GAS MASK INSPECTOR LABORATOR [facility] Barbiturates Not 06/15/2020 [facility] (cutoff 200 ng/mL) Detected 1:07 PM GAS MASK INSPECTOR LABORATOR [facility] Ethyl Glucuronide Not 06/15/2020 [facility] (cutoff 500 ng/mL) Detected 1:07 PM GAS MASK INSPECTOR LABORATOR [facility] Marijuana Not 06/15/2020 [facility] Metabolite (cutoff Detected 1:07 PM GAS MASK INSPECTOR LABORATOR [facility] 20 ng/mL) PCP (cutoff 25 Not 06/15/2020 [facility] ng/mL) Detected 1:07 PM GAS MASK INSPECTOR LABORATORIES Carisoprodol Not 06/15/2020 [facility] (cut-off 100 Detected 1:07 PM GAS MASK INSPECTOR LABORATORIES ng/mL) Comment: The carisoprodol immunoassay has cross-r eactivity to carisoprodol and meprobamate. Codeine (cutoff 40 Not Detected 06/15/2020 1:07 PM [facility] ng/mL) GAS MASK INSPECTOR Morphine (cutoff 20 Not Detected 06/15/2020 1:07 P M [facility] ng/mL) GAS MASK INSPECTOR 6-acetylmorphine (cutoff Not Detected 06/15/2020 1 :07 PM [facility] 20 ng/mL) GAS MASK INSPECTOR Oxycodone (cutoff 40 Not Detected 06/15/2020 1:07 PM [facility] ng/mL) GAS MASK INSPECTOR Noroxycodone (cutoff 100 Not Detected 06/15/2020 1 :07 PM [facility] ng/mL) GAS MASK INSPECTOR Oxymorphone (cutoff 40 Not Detected 06/15/2020 1:0 7 PM [facility] ng/mL) GAS MASK INSPECTOR Noroxymorphone (cutoff Not Detected 06/15/2020 1:0 7 PM [facility] 100 ng/mL) GAS MASK INSPECTOR Hydrocodone (cutoff 40 Present 06/15/2020 1:07 P M [facility] ng/mL) GAS MASK INSPECTOR Norhydrocodone (cutoff Present 06/15/2020 1:07 P M [facility] 100 ng/mL) GAS MASK INSPECTOR Hydromorphone (cutoff 20 Not Detected 06/15/2020 1 :07 PM [facility] ng/mL) GAS MASK INSPECTOR Buprenorphine (cutoff 5 Not Detected 06/15/2020 1: 07 PM [facility] ng/mL) GAS MASK INSPECTOR Norbuprenorphine (cutoff Not Detected 06/15/2020 1 :07 PM [facility] 20 ng/mL) GAS MASK INSPECTOR Fentanyl (cutoff 2 Not Detected 06/15/2020 1:07 PM [facility] ng/mL) GAS MASK INSPECTOR Norfentanyl (cutoff 2 Not Detected 06/15/2020 1:07 PM [facility] ng/mL) GAS MASK INSPECTOR Meperidine metabolite Not Detected 06/15/2020 1:07 PM [facility] (cutoff 50 ng/mL) GAS MASK INSPECTOR Tapentadol (cutoff 100 Not Detected 06/15/2020 1:0 7 PM [facility] ng/mL) GAS MASK INSPECTOR Cwypfelkkx-f-Hwga Not Detected 06/15/2020 1:07 PM [facility] (cutoff 200 ng/mL) GAS MASK INSPECTOR Amphetamine (cutoff 50 Not Detected 06/15/2020 1:0 7 PM [facility] ng/mL) GAS MASK INSPECTOR Methamphetamine (cutoff Not Detected 06/15/2020 1: 07 PM [facility] 400 ng/mL) GAS MASK INSPECTOR MDMA- Ecstasy (cutoff Not Detected 06/15/2020 1:07 PM [facility] 200 ng/mL) GAS MASK INSPECTOR MDA (cutoff 200 ng/mL) Not Detected 06/15/2020 1:0 7 PM [facility] GAS MASK INSPECTOR MDEA- Vashti (cutoff 200 Not Detected 06/15/2020 1:07 PM [facility] ng/mL) GAS MASK INSPECTOR Phentermine (cutoff 100 Not Detected 06/15/2020 1: 07 PM [facility] ng/mL) GAS MASK INSPECTOR Methylphenidate (cutoff Not Detected 06/15/2020 1: 07 PM [facility] 100 ng/mL) GAS MASK INSPECTOR Alprazolam (cutoff 40 Not Detected 06/15/2020 1:07 PM [facility] ng/mL) GAS MASK INSPECTOR Urlva-XO-Wddeckamuu Not Detected 06/15/2020 1:07 P M [facility] (cutoff 20 ng/mL) GAS MASK INSPECTOR Clonazepam (cutoff 20 Not Detected 06/15/2020 1:07 PM [facility] ng/mL) GAS MASK INSPECTOR 7-Aminoclonazepam Not Detected 06/15/2020 1:07 PM [facility] (cutoff 40 ng/mL) GAS MASK INSPECTOR Diazepam (cutoff 50 Not Detected 06/15/2020 1:07 P M [facility] ng/mL) GAS MASK INSPECTOR Nordiazepam (cutoff 50 Not Detected 06/15/2020 1:0 7 PM [facility] ng/mL) GAS MASK INSPECTOR Oxazepam (cutoff 50 Not Detected 06/15/2020 1:07 P M [facility] ng/mL) GAS MASK INSPECTOR Temazepam (cutoff 50 Not Detected 06/15/2020 1:07 PM [facility] ng/mL) GAS MASK INSPECTOR Lorazepam (cutoff 60 Not Detected 06/15/2020 1:07 PM [facility] ng/mL) GAS MASK INSPECTOR Midazolam (cutoff 20 Not Detected 06/15/2020 1:07 PM [facility] ng/mL) GAS MASK INSPECTOR Zolpidem (cutoff 20 Not Detected 06/15/2020 1:07 P M [facility] ng/mL) GAS MASK INSPECTOR Creatinine, Urine 52.3 20.0 - 06/15/2020 1:07 PM [facility] 400.0 GAS MASK INSPECTOR mg/dL Pain Management Drug See Below 06/15/2020 1:07 PM [facility] Panel GAS MASK INSPECTOR Comment: Methodology: Qualitative Enzyme Immunoas say and Qualitative Liquid Chromatography-Tandem Mass Spectrometry, Quantitative Spectrophotometry The absence of expected drug(s) and/or d [...] and its performa nce characteristics determined by [facility]. It has not been cleared or approved by the [place] Food and Drug Adminis tration. This test was performed in a CLIA certified laboratory and is intended for clinical purposes. EER Pain Mgt Drug Chew, [place] See Note 06/15/2020 1 :07 PM GAS MASK INSPECTOR [facility] Spec/EMITU Comment: Access [facility] Report using the li nk below: -Direct access: [email or web address] Performed By: [facility] [address] [place] [address] Land Title Examiner: Becca Sher MD Specimen Anatomical Collection Method Collection Time Receive d Time (Source) Location / / Volume Laterality Urine specimen Non-blood 06/10/2020 2:23 PM 020 (specimen) Collection / GAS MASK INSPECTOR 10:40 PM GAS MASK INSPECTOR Unknown Narrative [facility] - 06/15/2020 1:07 PM GAS MASK INSPECTOR ?? Please call [facility] at for Chemical Blender consultation or assistance with interpre tation if needed. Marivel Cavazos PA-C LAB - URINE ORDERABLES Performing Organization Address City/State/ZIP Code Phon e Number [facility] [employer] [place], [place] [phone] [address] [facility] [address] [address] [address] documented in this encounter Visit Diagnoses Diagnosis Chronic pain syndrome Chronic, continuous use of opioids Opioid type dependence, continuous Degeneration of lumbar or lumbosacral in tervertebral disc Lumbar radiculopathy Thoracic or lumbosacral neuritis or radi culitis, unspecified documented in this encounter Care Teams Inclinometer Tester Relationship Specialty Start Date End Date Marlee Coles MD PCP - General 02/10/15 05/18/21 [place] [address] [address] [id number] Tony Gray MD Referring Physician Orthopedics 10/01/14 Conner Harper MD MD Orthopedics 10/01/[address] [place], [place] [id number] documented as of this encounter
--- OUTSIDE RECORDS SUMMARY | 2022-01-27 10:16 | XMS_ITS | Encounter Summary ---
:1955 Author Organization [place] Address [address] [facility] [place] [address] Care Team Providers Name Role Phone Tony Gray MD Unavailable Conner Harper MD Unavailable Marlee Coles MD Primary Care Provider [phone] Encounter Details Date Type Department Care Team Description 11/15/2020 [facility] - [facility] Provider, Histor ical Social History Tobacco Use Types Packs/Day Years Used Date Never Assessed Sex Assigned at Date Recorded Not on file documented as of this encounter Plan of Treatment Upcoming Encounters Date Type Specialty Care Team Description 02/17/2022 Office Visit Pain & [place] [address] [place], [place] [address] (Wo rk) documented as of this encounter Procedures Procedure Name Priority Date/Time Associated Diagnosis Comme nts XR FLUORO TIME 0/1 Routine 02/03/2006 12:00 AM Re sults for this HOUR CDT procedure are i n the results section. documented in this encounter Results XR Fluoro Time 0/1 Hour (02/03/2006 12:00 AM CDT) Anatomical Region Laterality Modality Abdomen/Pelvis Other Specimen (Source) Anatomical Location Collection Method / Collectio n Time Received Time / Laterality Volume Narrative 02/03/2006 12:00 AM CDT See Historical Hospital Medical Record f or documentation Procedure Note Provider, Historical - 11/15/2020Formatt ing of this note might be different from the original. See Historical Hospital Medical Record f or documentation Historical Provider IMG DIAGNOSTIC IMAGING ORDER ABBI documented in this encounter Visit Diagnoses Not on filedocumented in this encounter Care Teams Piping Drafter Relationship Specialty Start Date End Date Marlee Coles MD PCP - General 02/10/15 05/18/21 [place] [address] [address] [address] Tony Gray MD Referring Physician Orthopedics 10/01/14 Conner Harper MD MD Orthopedics 10/01/[address] [place] [address] documented as of this encounter
--- OUTSIDE RECORDS SUMMARY | 2022-01-27 10:16 | XMS_ITS | Encounter Summary ---
:1955 Author Organization [place] Address [address] [place] [address] Care Team Providers Name Role Phone Tony Gray MD Unavailable Conner Harper MD Unavailable Marlee Coles MD Primary Care Provider [phone] Reason for Visit Reason Comments Back Pain Foot Pain Encounter Details Date Type Department Care Team Description 10/03/2019 Hospital Encounter [facility] Iain Cavazos type dependence, continuous (H); Pain Center Marivel Hernadez PA-C Chronic pain syndrome; [address] [facility] [address] Degeneration of lumbar or lumbosacral intervertebral disc; [address] Lumbar radiculopathy [place], [place] [address] [address] [place], [place] [phone] [address] Social History Tobacco Use Types Packs/Day Years [...] encounter Progress Notes Marivel Cavazos PA-C - 10/03/2019 1:40 PM CDT PAIN CENTER PROGRESS NOTE Subjective: Tremaine [...] 4. Lumbar radiculopathy Pain location and description: / constant radiating pain in low back, buttock, and bilateral legs. Function rated 4. Radiation of pain: Buttocks bilaterally, lower legs. Gait disturbance: None reported, denies recent falls. Denies AD. Exacerbating factors: walking, sitting, standing Alleviating factors: Pain medications, rest, ice Associated symptoms: Sleep disturbance due to pain. Numbness in bilateral hands and feet, legs. Denies weakness, bowel or bladder incontinence, fever/chills, unexplained weight loss. Functional Symptoms: Pain interferes with sleep, walking, relationships/social,mood Adverse effects of medications: Denies constipation, drowsiness, dizziness, nausea/abdominal symptoms, rash. States some itching from Vicodin, hydroxyzine is very helpful and taking 25 mg three times aday. Current treatment efficacy: Fair. Vicodin 10/325 mg up to 2 tabs two times a day prn, estimates #30 left. methocarbamol 500 mg prn, Ibuprofen 400 mg [...] pain in bilateral legs, was advised by [employer] employment representative that he had settings too high which aggravated his symptoms. States since last visit his pain is unchanged, rated 4-6/10. Denies recent falls or injuries. [place] and planning to return on 10/15/19. He states he hasn't been ill. He will stay at his son's house for a couple weeks and unsure if the nuno will be open for his RV use. He plans to be in [place] through the summer and early fall. He states he is having more shortness of breath which he asks if coming from the SCS device. He states he turned it on Monday at noon, at 7 pm he felt he couldn't catch his breath so he turned it back off. He states he has done this x 2 and shortness of breath tends to start after he turns on device and stops after he shuts it off. He states he has had shortness of breath in the past, had multiple tests and couldn't find anything wrong. He doesn't have SOB currently with activity or in any position as long as his SCS is off. He denies any other symptoms with shortness of breath Including cough, fever/chills, nausea, rash, dizziness, chest pain. He states when he goes to sleep he is only able to sleep short stretches sometimes as short as 10-20 minutes. He states SOB worsens when he bends over to tie his shoes. He states he didn't do the sleep study that was recommended. ?? He states he has been taking up to 2 tabs Vicodin two times a day Prn but not max dose of 6 tabs a day as wanted to make it last until he returned back [facility] as he had to stretch it out as he wasdelayed in returning due to COVID19. Continues Ibuprofen 600 mg 2 tabs three times a day as needed He is not taking any tylenol. He is not taking methocarbamol 500 mg before bedtime as too drowsy from it. Review of Systems Constitutional: shortness of breath. Sleep disturbance due to pain. Denies fever, [...] loss, psychoses, suicidal ideation, substance use/abuse. 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 INDICATION: [...] is advised to schedule reprogramming again with [employer] for reprogramming but has been out of state in [place] and wasn't willing to drive to [place] where they could see him. He would like to reprogram here in [place] at his next appointment. If this isn't successful, will consider bilateral LE EMG or updated MRI for diagnostic evaluation of symptoms in lower legs. He is advised to continue Vicodin dosing as he is, also maximize daily Ibuprofen and Tylenol doses alternating and also using ice. We review risks of respiratory depression with opioids; he will hold dose with any shortness of breath. He reports he has not had shortness of breath since 2 occasions earlier this week when SCS was on; he has kept it off. I will reach out to [employer] to see if any reports of shortness of breath in their research studies. He is advised to present to ED if symptoms return for further assessment. Plan: Continue Vicodin 10/325 mg 1-2 tablet [...] The fill dates for your medications are: 10/03/2019 & 10/31/2019 Check with your pharmacy that all prescriptions [...] an explanation if this were to occur. If you are short of breath without the stimulator on, go to ED or urgent care for further evaluation. I have sent a message to [employer] asking if they saw any patients in their research studies experienceshortness of breath with the device. - Email sent to Francisco Segovia With [employer] You may continue over the counter ibuprofen with food up to 2400 mg daily or tylenol up to 3,000 mg daily (remember to calculate each Vicodin tablet has 325 mg of tylenol) for pain. Follow-up in 8 weeks with Marivel with [employer] rep here for reprogramming. Call Time: 25 minutes Start - 1346 Stop - 1411 Marivel Cavazos PA-C [facility] [address] [facility] [place] [address] Latisha Bautista - 10/03/2019 1:40 PM CDT Images from the original note were not included. Progress Notes by Latisha Bautista CMA at 10/03/2019 1:40 PM Author: Latisha Bautista CMA Service: -- Author Type: Manufacturing Finance Manager Filed: 10/03/2019 5:02 PM Date of Service: 10/03/2019 1:40 PM Status: Signed Kennel Operator: Latisha Bautista CMA (Manufacturing Finance Manager) Tremaine Plunkett is a 64 y.o. male who is being evaluated via a billable telephone visit regarding back pain. Patient describes his pain as radiates, constant. Patient's everyday functions effected by pain include: relationships/social, walking, sleep and mood. The patient has been notified of following: [...] verbal consent to a Telephone visit? Yes Patient would like to receive their AVS by mail. Latisha Bautista CMA documented in this encounter Miscellaneous Notes Patient Instructions - LAURITA - Marivel Cavazos PA-C - 10/03/2019 1:40 PM CDT Continue Vicodin 10/325 mg 1-2 tablet [...] The fill dates for your medications are: 10/03/2019 & 10/31/2019 Check with your pharmacy that all prescriptions [...] an explanation if this were to occur. If you are short of breath without the stimulator on, go to ED or urgent care for further evaluation. I have sent a message to [employer] asking if they saw any patients in their research studies experienceshortness of breath with the device. You may continue over the counter ibuprofen with food up to 2400 mg daily or tylenol up to 3,000 mg daily (remember to calculate each Vicodin tablet has 325 mg of tylenol) for pain. Follow-up in 8 weeks with Marivel with [employer] rep here for reprogramming. documented in this encounter Plan of Treatment Upcoming Encounters Date Type Specialty Care Team Description 02/17/2022 Office Visit [place] & [place] [address] [place], [place] [address] (Wo rk) documented as of this encounter Visit Diagnoses Diagnosis Opioid type dependence, continuous (H) Opioid type dependence, continuous Chronic pain syndrome Degeneration of lumbar or lumbosacral in tervertebral disc Lumbar radiculopathy Thoracic or lumbosacral neuritis or radi culitis, unspecified documented in this encounter Care Teams Oyster Tonger Relationship Specialty Start Date End Date Marlee Coles MD PCP - General 02/10/15 05/18/21 [facility] [address] [address] [address] Tony Gray MD Referring Physician Orthopedics 10/01/14 Conner Harper MD MD Orthopedics 10/01/14 [facility] [place], [place] [id number] [place] [address] documented as of this encounter
--- OUTSIDE RECORDS SUMMARY | 2022-01-27 10:16 | XMS_ITS | Encounter Summary ---
:1955 Author Organization [place] Address [address] [place] [address] Care Team Providers Name Role Phone Tony Gray MD Unavailable Conner Harper MD Unavailable Marlee Coles MD Primary Care Provider [phone] Encounter Details Date Type Department Care Team Description 02/04/2021 Travel Social History Tobacco Use Types Packs/Day [...] Pain & [place] [address] [place], [place] [address] (Wo rk) documented as of this encounter Visit Diagnoses Not on filedocumented in this encounter Care Teams Long Winder Tender Relationship Specialty Start Date End Date Marlee Coles MD PCP - General 02/10/15 05/18/21 [place] [address] [address] [facility] [address] [place] [address] Tony Gray MD Referring Physician Orthopedics 10/01/14 Conner Harper MD MD Orthopedics 10/01/[address] [place] [address] documented as of this encounter
--- OUTSIDE RECORDS SUMMARY | 2022-01-27 10:17 | XMS_ITS | Encounter Summary ---
:1955 Author Organization [place] Address [address] [place] [address] Care Team Providers Name Role Phone Tony Gray MD Unavailable Conner Harper MD Unavailable Marlee Coles MD Primary Care Provider [phone] Encounter Details Date Type Department Care Team Description 11/29/2018 Hospital Encounter [facility] Hugo Loyola [facility] Surgery Abigail coates MD [address] [facility] [address] [facility] [address] [place] [address] [place] [address] [phone] Social History Tobacco Use Types Packs/Day Years Used Date Never Assessed Sex Assigned at Date Recorded Not on file documented as of this encounter Last Filed Vital Signs Vital Sign Reading Time Taken Comments Blood Pressure - - Pulse - - Temperature - - Respiratory Rate - - Oxygen Saturation - - Inhaled Oxygen Concentration - - Weight 107 kg (236 lb) 11/29/2018 6:19 AM CDT Height 172.7 cm (5' 8) 11/29/2018 6:19 AM CDT Body Mass Index 35.88 11/29/2018 6:19 AM CDT documented in this encounter Medications [...] moderate pain documented as of this encounter H&P Notes Hugo Loyola MD - 11/29/2018 6:54 AM CDT I have performed an assessment and examined the patient, as necessary, to update the patient's current status that may have changed since the prior History and Physical. The History & Physical has been reviewed and the patient's status is unchanged. documented in this encounter Miscellaneous Notes Op Note - Hugo Loyola MD - 11/29/2018 9:24 AM CDT Operative Note Name: Tremaine Plunkett Location: [facility] Procedure Date: 11/29/2018 PCP: Marlee Coles MD RIGHT FLANK INCISION INSERTION SPINAL CORD STIMULATOR, INSERTION OF STIMULATOR ELECTRODES X2 (Right) Pre-Procedure Diagnosis: Lumbar radiculopathy [M54.16] Post-Procedure Diagnosis: Lumbar radiculopathy [M54.16] Surgeon(s): Hugo Loyola MD Anesthesia Type: MAC Patient Active Problem List Diagnosis Date Noted ??? Degeneration of thoracic intervertebral disc ??? Opioid Dependence With Continuous Use ??? Lumbar Disc Degeneration ??? Bilateral lumbar radiculopathy ??? Myalgia And Myositis Findings: None Operative Report: Procedure: 1.) Insertion of 2 spinal cord stimulator epidural electrode arrays 2.) Insertion of spinal cord stimulator pulse generator 3.) Electronic analysis of stimulator and electrodes The procedure was discussed in detail in the clinic. The risks and benefits were discussed, including but not limited to bleeding, infection, nerve injury and increased pain. Questions were answered. The consent was signed in the pre-op area. The incision area over the spine and over the stimulator pocket incision was marked. The patient was then taken to the operating room. The patient was placed prone on the operating table. The operative area was prepped sterilely and draped. The pause for the cause was done to confirm the correct patient, procedure and site. The patient received 2 gram of Ancef IV. The lumbar spine was identified on AP fluoroscopy. The area just to the right of midline at the T12-L1 was infiltrated with 0.25% Marcaine with epinephrine 1:200,000. An incision was made using a scalpel and electrocautery was used to extend the incision down the subcutaneous tissue plane and control hemostasis. The first [employer] #14-gauge epidural needle was inserted to the right of midline and advanced to the T11-12 interspace. The epidural space was entered with a [id number] technique. The first 1X8 [employer] electrode arrays was inserted and directed into the posterior epidural space and advanced up the T8 level. A second #14-gauge epidural needle was inserted and directed to the T12-l1 inter space in the midline. The epidural space was again entered using a [id number]-afpiouykek technique. Thesecond electrode array was inserted and directed into the posterior epidural space up to the T9 level. The positioning of the leads was then verified on AP and lateral fluoroscopy. The stylets were removed from the leads and the epidural needles were removed. The anchors were placed over the leads anddirected into the supraspinous fascia. They were then secured with interrupted ligatures of 2-0 silk. Next the area of the incision for the stimulator pocket in the right flank area was infiltrated with0.25% Marcaine with epinephrine. A transverse incision of about 1 ?? inches was made. This was carried down to the subcutaneous tissue plane and blunt dissection was used to form the IPG pocket. The path for the leads from the midline incision to the IPG pocket was infiltrated with 0.25% Marcaine withepinephrine. The leads were then passed from the midline incision to the IPG pocket area. At this point a strain release loop was made near the anchors in the midline spinal incision area. The IPG was connected to the leads. An impedence check was done to verify lead connections and continuity. A stress relief loop was placed beneath the IPG and the IPG was placed into the pocket with the [employer] logo facing outward. The incision in the midline was then closed using 2-0 Vicryl interrupted ligatures for the fascial tissues and Dermabond over the skin edges. The incision over the IPG was then closed using 2-0 vicryl interrupted ligatures for the fascial tissues and Dermabond for the skin edges. The patient was taken to the recovery room. IPG: [id number] Lead 1: 1058-50B LOT:[id number] Lead 2: 1058-50B [id number] Estimated Blood Loss: 2 mL from 11/29/2018 7:00 AM to 11/29/2018 9:17 AM Complications: None Hugo Loyola MD Date: 11/29/2018 Time: 9:24 AM documented in this encounter Plan of Treatment Upcoming Encounters Date Type Specialty Care Team Description 02/17/2022 Office Visit Pain & [place] [address] [facility] [address] [place], [place] [address] (Wo rk) documented as of this encounter Visit Diagnoses Not on filedocumented in this encounter Care Teams Bacteriology Technician Relationship Specialty Start Date End Date Marlee Coles MD PCP - General 02/10/15 05/18/21 [place] [address] [address] [place] [address] Tony Gray MD Referring Physician Orthopedics 10/01/14 Conner Harper MD MD Orthopedics 10/01/[address] [place], [place] [address] documented as of this encounter
--- OUTSIDE RECORDS SUMMARY | 2022-01-27 10:17 | XMS_ITS | Encounter Summary ---
:1955 Author Organization [place] Address [address] [place] [address] Care Team Providers Name Role Phone Tony Gray MD Unavailable Conner Harper MD Unavailable Marlee Coles MD Primary Care Provider [phone] Reason for Visit Reason Comments Back Pain Encounter Details Date Type Department Care Team Description 12/13/2018 Hospital Encounter [facility] Codie Cavazos [place] pain syndrome; Pain Center Marivel Hernadez PA-C Degeneration of lumbar or lumbosacral in tervertebral disc; [address] [place] Lumbar radic ulopathy; [address] Opioid type dependence, continuous (H) [place], [place] [address] [address] [place], [place] [phone] [facility] Social History Tobacco Use Types Packs/Day Years Used Date Never Assessed Sex Assigned at Date Recorded Not on file documented as of this encounter Last Filed Vital Signs Vital Sign Reading Time Taken Comments Blood Pressure - - Pulse - - Temperature - - Respiratory Rate - - Oxygen Saturation - - Inhaled Oxygen Concentration - - Weight 107 kg (236 lb) 12/13/2018 10:37 AM CDT Height 172.7 cm (5' 8) 12/13/2018 10:37 AM CDT Body Mass Index 35.88 12/13/2018 10:37 AM CDT documented in this encounter Medications [...] documented as of this encounter Progress Notes Historical Provider - 12/13/2018 9:57 AM CDT Pt is here for Follow Up Visit with JANET Perry for back pain. Marivel Cavazos PA-C - 12/13/2018 9:57 AM CDT PAIN CENTER PROGRESS NOTE Subjective: [...] Lumbar Disc Degeneration 3. Lumbar radiculopathy 4. Opioid Dependence With Continuous Use Pain location and description: 10/10 constant sharp, stabbing, awful pain in low back, buttock, and bilateral legs. Function rated 8. Radiation of pain: Buttocks bilaterally, lower legs. Gait disturbance: None reported, denies recent falls. Denies AD. Exacerbating factors: bending to tie shoes, prolonged sitting, walking, cold temperatures, standing,:everything Alleviating factors: Pain medications, standing or changing positions, synera patch, back brace up to 1.5 hours daily with bending or yardwork activities, ice. Associated symptoms: Sleep disturbance due to pain waking on average 1-2. Numbness and weakness in bilateral hands and feet, legs. Denies bowel or bladder incontinence, fever/chills, unexplained weightloss. Functional Symptoms: Pain interferes with sleep, walking, ADLs, relationships/social, mood (depressed, frustrated, angry, helpless/hopeless). Adverse effects of medications: Denies constipation, drowsiness, dizziness, nausea/abdominal symptoms, rash. States some itching from Vicodin, hydroxyzine is very helpful and taking 25 mg three times aday. Current treatment efficacy: Good. Vicodin 10/325 mg 2 tabs two times a day-three times a day prn, methocarbamol 500 mg [...] SCS trial and implant on 11/29/18. He reports he has had worsened pain it's 100+ over the last 2 weeks. He is at 7 for his program amplitude and spoke to Ayse suarez yesterday and was told to reduce back down. He is going to go to 2, then 4. Was using a chart and increasing 1 every 3 days. He states everything he sits on pushes on the b attery. He states he used bag of ice last night. Has a lot of soreness near the battery. Denies fever/chills, N/V, rash, itching, swelling near IPG. Reviewed postop visit on 12/06/18 which did not indicate any infection, complications, or concerns. States left arm has been painful since surgery and now both arms. He states he was holding cup of water in left hand and couldn't lift it up last night. He denies any neck pain. He states his chronic numbness persists in his hands/fingers but not new. He feels pain in the medial aspect of his left armup to his armpit. Vicodin dosing allows pain rating to be down to a 3/10 with Vicodin and taking tylenol in between dosing as needed not exceeding daily dose. Sometimes taking methocarbamol 500 mg at bedtime only a couple time a week. Using ice morning, noon, and night. This works for 1-2 hours after removing. Takes Ibuprofen once a day as needed. Review of Systems Constitutional: Sleep disturbance due to pain. Denies fever, chills, night sweats, lethargy, weight loss, weight gain. Musculoskeletal: Positive for back pain, leg pain, left arm pain since SCS implant. Denies weakness,joint pain, joint swelling, recent falls. Gastrointestional: Denies [...] psychoses, suicidal ideation, substance use/abuse. Objective: Vitals: 12/13/18 1037 BP: 100/70 Pulse: 62 Resp: 16 Weight: (!) 236 lb (107 kg) Height: 5' 8 (1.727 m) PainSc: 10-Worst pain ever Physical Exam Constitutional- General appearance: Well developed, abnormal, uncomfortable standing for entire visit today, overweight, and appearance [...] edema or varicosities. Dermatologic- Exposed skin CDI. IPG site is tender to palpation, not swollen or erythematous or warmto touch. No bruising. Incisions are well healed without drainage. No bruising or swelling in left arm or hand. Musculoskeletal- Gait and station: Slight antalgia. Gait evaluation demonstrates ambulating independently. Patient does have difficulty rising from a seated position. Opioid Fackler Precautions: UDS/Swab- 06/07/18, results as expected Consent - 12/13/18 Agreement- 12/13/18 Pharmacy- as documented ELECTRONIC COMMUNICATIONS TECHNICIAN- MNPMP reviewed 12/13/18 as expected Count- n/a Psychological evaluation n/a MME- 0 Pharmacogenetic testing n/a DIANE 10/19/18 Imaging: None new. Assessment: Tremaine Plunkett is a 63 y.o. [...] foraminal stenosis. He was advised no surgery. We have recommended SCS implant which was completed 2 weeks ago. Reporting increased pain at IPG site and left arm since surgery. Review there are no skin changes or systemic symptoms that resemble infection; will check CRP and ESR to ensure inflammatory markers are not elevated. He has reviewed left arm pain with Dr. Loyola in surgical followup; we discuss this is a new pain that needs a work up that I am not able to do today as he is under work comp claim. Reviewed his SCS leads are placed in the lower thoracic spine and t herefore would not be responsible for this change in pain in left arm. Review that he is following all the postsurgical activity restrictions. He is advised for increased pain after surgery to continueVicodin dosing as he is, also maximize daily Ibuprofen and Tylenol doses alternating and also using ice. He is advised he may also increase his muscle relaxant dosing to four times a day although this may cause drowsiness. He will continue to work with Ayes suarez for programming questions/concerns. Plan: Continue Vicodin 10/325 mg 1-2 tablet every 4-6 hours as needed for pain. Max 6 tabs in 24 hours. Refill sent for 12/19/18. Continue Methocarbamol 500 mg at bedtime as needed - you may take this more frequently as needed, 1 every 6 hours (up to 4 per day) but will cause drowsiness. You may continue over the counter ibuprofen with food up to 2400 mg daily or tylenol up to 3,000 mg daily (remember to calculate each Vicodin tablet has 325 mg of tylenol) for postoperative pain. If this is not enough, may consider adding in a medrol (steroid) dose pack for inflammation. Labs today CRP/ESR for check of inflammatory markers Will continue to monitor left arm pain/weakness. Discuss that your SCS leads are placed lower and does not affect the left arm nerves. Continue to work with Ayse on the programming adjustments. Follow-up in 4 weeks Marivel Cavazos PA-C [facility] [address] [place], [place] [address]vd[address] [place] [address] documented in this encounter Miscellaneous Notes Patient Instructions - HE - Marivel Cavazos PA-C - 12/13/2018 9:57 AM CDT Continue Vicodin 10/325 mg 1-2 tablet every 4-6 hours as needed for pain. Max 6 tabs in 24 hours. Refill sent for 12/19/18. Continue Methocarbamol 500 mg at bedtime as needed - you may take this more frequently as needed, 1 every 6 hours (up to 4 per day) but will cause drowsiness. You may continue over the counter ibuprofen with food up to 2400 mg daily or tylenol up to 3,000 mg daily (remember to calculate each Vicodin tablet has 325 mg of tylenol) for postoperative pain. If this is not enough, may consider adding in a medrol (steroid) dose pack for inflammation. Labs today CRP/ESR for check of inflammatory markers Will continue to monitor left arm pain/weakness. Discuss that your SCS leads are placed lower and does not affect the left arm nerves. Continue to work with Ayse on the programming adjustments. Follow-up in 4 weeks Marivel documented in this encounter Plan of Treatment Upcoming Encounters Date Type Specialty Care Team Description 02/17/2022 Office Visit Pain & [place] [address] [place], [place] [address] (Wo rk) documented as of this encounter Procedures Procedure Name Priority Date/Time Associated Comments Diagnosis ERYTHROCYTE Routine 12/13/2018 11:33 Results for this SEDIMENTATION RATE AM CDT procedure are in AUTO the results section. CRP INFLAMMATION Routine 12/13/2018 11:33 Results for this AM CDT procedure are i n the results section. documented in this encounter Results CRP inflammation (12/13/2018 11:33 AM CDT) P athologist Signature CRP 0.5 0.0 - 0.8 12/13/2018 HEALTH mg/dL 9:47 PM CDT [facility] Specimen Anatomical Collection Method / Collection Time Recei ramiro Time (Source) Location / Volume Laterality Blood specimen Venipuncture / 12/13/2018 11:33 2 019 8:03 (specimen) Unknown AM CDT PM CDT Marivel Cavazos PA-C LAB - BLOOD ORDERABLES Performing Organization Address [facility] Phon e Number [place] [address] [address] [facility] Erythrocyte sedimentation rate auto (12/13/2018 11:33 AM CDT) Patholo gist Method Time Signature Erythrocyte 3 0 - 15 12/13/2018 HEALTH Sedimentation Rate mm/hr 9:09 PM CDT [facility] Specimen Anatomical Collection Method / Collection Time Recei ramior Time (Source) Location / Volume Laterality Blood specimen Venipuncture / 12/13/2018 11:33 019 8:03 (specimen) Unknown AM CDT PM CDT Marivel Cavazos PA-C LAB - BLOOD ORDERABLES Performing Organization Address [facility] Phon [place] [address] [address] [facility] documented in this encounter Visit Diagnoses Diagnosis Chronic pain syndrome Degeneration of lumbar or lumbosacral in tervertebral disc Lumbar radiculopathy Thoracic or lumbosacral neuritis or radi culitis, unspecified Opioid type dependence, continuous (H) Opioid type dependence, continuous documented in this encounter Care Teams Call Or Contact Centre Operator Relationship Specialty Start Date End Date Marlee Coles MD PCP - General 02/10/15 05/18/21 [place] [address] [address] [place] [address] Tony Gray MD Referring Physician Orthopedics 10/01/14 Conner Harper MD MD Orthopedics 10/01/[address] [place], [place] [address] documented as of this encounter
--- OUTSIDE RECORDS SUMMARY | 2022-01-27 10:17 | XMS_ITS | Encounter Summary ---
:1955 Author Organization [place] Address [address] [facility] [place] [address] Care Team Providers Name Role Phone Tony Gray MD Unavailable Conner Harper MD Unavailable Marlee Coles MD Primary Care Provider [phone] Reason for Visit Reason Comments Other Status re: SCS Implant Encounter Details Date Type Department Care Team Description 12/07/2018 Communication - [facility] Hawa Jiang Other (Status re: [facility] A, RN SCS Implant) [address] [facility] [address] [place] [address] Social History Tobacco Use Types Packs/Day Years Used Date Never Assessed Sex Assigned at Date Recorded Not on file documented as of this encounter Miscellaneous Notes Telephone Encounter - Hawa Jiang - 12/07/2018 10:32 AM CDT Fax received from pt's work comp requesting date of pt's SCS Implant. Called and left msg indicating implant was 11/29/18 and pt had his post-op visit yesterday. Asked that he call back if any questions. documented in this encounter Plan of Treatment Upcoming Encounters Date Type Specialty Care Team Description 02/17/2022 Office Visit Pain & [place] [address] [address] [place] [address] (Wo rk) documented as of this encounter Visit Diagnoses Not on filedocumented in this encounter Care Teams Rail Engineer Relationship Specialty Start Date End Date Marlee Coles MD PCP - General 02/10/15 05/18/21 [place] [address] [address] [place], [place] [phone] Tony Gray MD Referring Physician Orthopedics 10/01/14 Conner Harper MD MD Orthopedics 10/01/[address] [place], [place] [address] documented as of this encounter
--- OUTSIDE RECORDS SUMMARY | 2022-01-27 10:17 | XMS_ITS | Encounter Summary ---
:1955 Author Organization [place] Address [address] [place] [address] Care Team Providers Name Role Phone Tony Gray MD Unavailable Conner Harper MD Unavailable Marlee Coles MD Primary Care Provider [phone] Encounter Details Date Type Department Care Team Description 01/31/2018 Hospital Encounter [facility] [place], [place], Adj ustment disorder with depressed mood; Pain Center [facility] Chronic pain syndrome [address] [facility] [address] [facility] [address] [place] [id number] Social History Tobacco Use Types Packs/Day Years [...] moderate pain documented as of this encounter Plan of Treatment Upcoming Encounters Date Type Specialty Care Team Description 02/17/2022 Office Visit Pain & [place] [address] [place], [place] [address] (Wo rk) documented as of this encounter Visit Diagnoses Diagnosis Adjustment disorder with depressed mood Chronic pain syndrome documented in this encounter Care Teams Fuel Retrofitting Technician Relationship Specialty Start Date End Date Marlee Coles MD PCP - General 02/10/15 05/18/21 [place] [address] [address] [place] [address] Tony Gray MD Referring Physician Orthopedics 10/01/14 Conner Harper MD MD Orthopedics 10/01/14 [facility] [facility] [address] [place], [place] [address] documented as of this encounter
--- OUTSIDE RECORDS SUMMARY | 2022-01-27 10:17 | XMS_ITS | Encounter Summary ---
:1955 Author Organization [place] Address [address] [facility] [place] [address] Care Team Providers Name Role Phone Tony Gray MD Unavailable Conner Harper MD Unavailable Marlee Coles MD Primary Care Provider [phone] Reason for Visit Reason Comments Other medication problem Encounter Details Date Type Department Care Team Description 04/11/2018 Communication - [facility] Yane Gil (medication [facility] Jayna Lopez RN problem) [address] [place] [address] Social History Tobacco Use Types Packs/Day Years Used Date Never Assessed Sex Assigned at Date Recorded Not on file documented as of this encounter Plan of Treatment Upcoming Encounters Date Type Specialty Care Team Description 02/17/2022 Office Visit Pain & [place] [address] [place], [place] [address] (Wo rk) documented as of this encounter Visit Diagnoses Diagnosis Chronic pain syndrome documented in this encounter Care Teams Riddler Operator Relationship Specialty Start Date End Date Marlee Coles MD PCP - General 02/10/15 05/18/21 [place] [address] [address] [place], [place] [id number] Tony Gray MD Referring Physician Orthopedics 10/01/14 Conner Harper MD MD Orthopedics 10/01/14 [facility] [place], [place] [phone] [place] [address] documented as of this encounter
--- OUTSIDE RECORDS SUMMARY | 2022-01-27 10:17 | XMS_ITS | Encounter Summary ---
:1955 Author Organization [place] Address [address] [facility] [place] [address] Care Team Providers Name Role Phone Tony Gray MD Unavailable Conner Harper MD Unavailable Marlee Coles MD Primary Care Provider Marivel Cavazos PA-C Unavailable Zhang [place] Primary Care Provider Encounter Details Date Type Department Care Team Description 11/09/2018 Records - [facility] CONVERSION Scan, Non-Provider Social History Tobacco Use Types Packs/Day Years Used Date Never Assessed Sex Assigned at Date Recorded Not on file documented as of this encounter Plan of Treatment Upcoming Encounters Date Type Specialty Care Team Description 02/17/2022 Office Visit Pain & [place] [address] [place], [place] [address] (Wo rk) documented as of this encounter Visit Diagnoses Not on filedocumented in this encounter Care Teams Clearance Rep Relationship Specialty Start Date End Date Marlee Coles PCP - General 02/10/15 MD [facility] [place] [address] [place] [address] Zhang [place] PCP - General Family Medicine 05/19/21 [address] [facility] [place] [address] Tony Gray MD Referring Physician Orthopedics 10/01/14 Conner Harper MD MD Orthopedics 10/01/[address] [place], [place] [address] Marivel Cavazos, Assigned Surgical Provider 1 [address] [facility] [address] [place], [place] [id number] documented as of this encounter
--- OUTSIDE RECORDS SUMMARY | 2022-01-27 10:17 | XMS_ITS | Encounter Summary ---
:1955 Author Organization [place] Address [address] [facility] [place] [address] Care Team Providers Name Role Phone Tony Gray MD Unavailable Conner Harper MD Unavailable Marlee Coles MD Primary Care Provider [phone] Encounter Details Date Type Department Care Team Description 12/14/2018 [facility] MATT Hernadez [address] [facility] [address] [facility] [address] [facility] [address] [place], [place] [phone] [address] Social History Tobacco Use Types Packs/Day Years Used Date Never Assessed Sex Assigned at Date Recorded Not on file documented as of this encounter Miscellaneous Notes Letter - Historical Provider - 12/03/2020 7:56 AM CDT Letter by Marivel Cavazos PA-C at Author: Marivel Cavazos PA-C Service: -- Author Type: -- Filed: Encounter Date: 12/14/2018 Status: (Other) Tremaine Plunkett [address] [facility] [address] December 14, 2018 Dear Mr. Plunkett, Below are the results from your recent visit: Resulted Orders Sedimentation Rate Result Value Ref Range Sed Rate 3 0 - 15 mm/hr C-Reactive Protein (CRP) Result Value Ref Range CRP 0.5 0.0 - 0.8 mg/dL The test results show that your inflammatory markers are normal. Please call with questions or contact us using [employer]. Sincerely, Electronically signed by Marivel Cavazos PA-C documented in this encounter Plan of Treatment Upcoming Encounters Date Type Specialty Care Team Description 02/17/2022 Office Visit Pain & [place] [address] [place], [place] [address] (Wo rk) documented as of this encounter Visit Diagnoses Not on filedocumented in this encounter Care Teams Delivery Truck Driver Relationship Specialty Start Date End Date Marlee Coles MD PCP - General 02/10/15 05/18/21 [place] [address] [address] [place], [place] [id number] Tony Gray MD Referring Physician Orthopedics 10/01/14 Conner Harper MD MD Orthopedics 10/01/[address] [place], [place] [address] documented as of this encounter
--- OUTSIDE RECORDS SUMMARY | 2022-01-27 10:17 | XMS_ITS | Encounter Summary ---
:1955 Author Organization [place] Address [address] [place] [address] Care Team Providers Name Role Phone Tony Gray MD Unavailable Conner Harper MD Unavailable Marlee Coles MD Primary Care Provider [phone] Reason for Visit Reason Comments Medication Problem Medication Refill Encounter Details Date Type Department Care Team Description 10/23/2018 Communication - [facility] Hawa Jiang Medic ation Problem; [facility] Jessica, research scholar Refill [address] [facility] [address] [place] [address] Social History Tobacco Use Types Packs/Day Years Used Date Never Assessed Sex Assigned at Date Recorded Not on file documented as of this encounter Miscellaneous Notes Telephone Encounter - Hawa Jiang - 10/23/2018 10:13 AM CDT Pt at clinic for SCS Trial and states Hydroxyzine Pamoate wasn't delivered with his other meds. Has been taking Benadryl but states it isn't as effective. Nurse called [facility] and was told the med is on back order. Pt also states he didn't get Keflex with his other scripts for the SCS Trial. Called [facility] and was told the script was filled and sent to [facility]. [facility] asked that pt check and if [facility]'t haveit they'll send a new script out. Called and notified pt. Dr Loyola aware pt may not be able to start Keflex until tomorrow or Wed if it needs to be resent. Hydroxyzine (Atarax) queued as replacement. Please cancel if the alternative isn't what you'd wish to have ordered. documented in this encounter Plan of Treatment Upcoming Encounters Date Type Specialty Care Team Description 02/17/2022 Office Visit Pain & [place] [address] [place], [place] [address] (Wo rk) documented as of this encounter Visit Diagnoses Diagnosis Chronic pain syndrome documented in this encounter Care Teams Collar Fuser Relationship Specialty Start Date End Date Marlee Coles MD PCP - General 02/10/15 05/18/21 [place] [address] [address] [phone] Tony Gray MD Referring Physician Orthopedics 10/01/14 Conner Harper MD MD Orthopedics 10/01/[address] [place], [place] [address] documented as of this encounter
--- OUTSIDE RECORDS SUMMARY | 2022-01-27 10:17 | XMS_ITS | Encounter Summary ---
:1955 Author Organization [place] Address [address] [facility] [place] [address] Care Team Providers Name Role Phone Tony Gray MD Unavailable Conner Harper MD Unavailable Marlee Coles MD Primary Care Provider Encounter Details Date Type Department Care Team Description 02/06/2018 Communication - [facility] Hawa Jiang radiculopathy [facility] A, RN [address] [facility] [address] [place] [address] Social History Tobacco Use Types Packs/Day Years Used Date Never Assessed Sex Assigned at Date Recorded Not on file documented as of this encounter Plan of Treatment Upcoming Encounters Date Type Specialty Care Team Description 02/17/2022 Office Visit Pain & [place] [address] [place], [place] [address] (Wo rk) documented as of this encounter Visit Diagnoses Diagnosis Lumbar radiculopathy Thoracic or lumbosacral neuritis or radi culitis, unspecified documented in this encounter Care Teams Cost Clerk Relationship Specialty Start Date End Date Marlee Coles MD PCP - General 02/10/15 05/18/21 [place] [address] [address] [facility] [address] [place], [place] [address] Tony Gray MD Referring Physician Orthopedics 10/01/14 Conner Harper MD MD Orthopedics 10/01/14 [facility] [facility] [address] [place] [address] documented as of this encounter
--- OUTSIDE RECORDS SUMMARY | 2022-01-27 10:17 | XMS_ITS | Encounter Summary ---
:1955 Author Organization [facility] Address [address] [place] [address] Care Team Providers Name Role Phone Tony Gray MD Unavailable Conner Harper MD Unavailable Marlee Coles MD Primary Care Provider Reason for Visit Reason Comments Back Pain Foot Pain Encounter Details Date Type Department Care Team Description 01/24/2019 Hospital Encounter [facility] Codie Cavazos [place] pain syndrome; Pain Center Marivel Hernadez PA-C Chronic, continuous use of opioids; [address] [facility] [address] Degeneration of lumbar or lumbosacral intervertebral disc; [address] Lumbar radiculopathy [place], [place] [address] [address] [place], [place] [phone] [id number] Social History Tobacco Use Types Packs/Day Years Used Date Never Assessed Sex Assigned at Date Recorded Not on file documented as of this encounter Last Filed Vital Signs Vital Sign Reading Time Taken Comments Blood Pressure - - Pulse - - Temperature - - Respiratory Rate - - Oxygen Saturation - - Inhaled Oxygen Concentration - - Weight 106.6 kg (235 lb) 01/24/2019 10:13 AM CDT Height 172.7 cm (5' 8) 01/24/2019 10:13 AM CDT Body Mass Index 35.73 01/24/2019 10:13 AM CDT documented in this encounter Medications [...] this encounter Progress Notes Historical Provider - 01/24/2019 9:50 AM CDT Pt is here for Follow Up Visit with JANET Perry for back pain. AT Marivel Cavazos PA-C - 01/24/2019 9:50 AM CDT PAIN CENTER PROGRESS NOTE Subjective: [...] 4. Lumbar radiculopathy Pain location and description: 8-10/10 constant awful pain in low back, buttock, and bilateral legs.Function rated 8. At best, pain rated 6/10 at worst 10/10, on average pain rated 8/10. Radiation of pain: Buttocks bilaterally, lower legs. [...] 11/29/18. He reports he has had worsened pain. He states the SCS is the worst thing he ever did. He is trying to get in touch with a [employer] rep and states no one has called him back. He states when he used the program #3 his pain in feet was so severe he could hardly walk. He states he has had painin feet stepped off step in camper felt a shock in foot and fell down and hit a table and scraped his knee. He fell 12/30. He had bilateral ankle x-rays which were negative but states his ankle pain from a sprain was significant. He has been using Ibuprofen, ice, and epsom salt soaks. Foot pain is in toes and center of bottom of feet. Feels like jolt of electricity that he doesn't want to step down and numb. He states he has pain with NWB as well. He states he has been taking 2 [...] started taking.He still plans to reside in [place] for winter months leaving mid March. He did see provider Dr. Zhang Jernigan on 01/08/19 for shortness of breath and has been referred for a sleep medicine consult. Review of Systems Constitutional: Sleep disturbance due [...] psychoses, suicidal ideation, substance use/abuse. Objective: Vitals: 01/24/19 1013 BP: 146/89 Pulse: 63 Resp: 16 Weight: (!) 235 lb (106.6 kg) Height: 5' 8 (1.727 m) PainSc: 9 Physical Exam Constitutional- General appearance: Well developed, [...] Dermatologic- Exposed skin CDI. IPG site is nontender to palpation, not swollen or erythematous or warm to touch. No bruising. Incisions are well healed without drainage. No bruising or swelling on midor lower back. Musculoskeletal- Gait and station: Slight antalgia. Gait evaluation demonstrates ambulating independently. Patient does have difficulty rising from a seated position. Opioid [place] Precautions: UDS/Swab- 06/07/18, results as expected Consent - 12/13/18 Agreement- 12/13/18 Pharmacy- as documented BOILER TESTER- reviewed 01/24/19 as expected Count- n/a Psychological evaluation n/a MME- 60 Pharmacogenetic testing n/a DIANE 10/19/18 Imaging: HISTORY: Acute bilateral ankle pain. TECHNIQUE: Three views right ankle. COMPARISON: None. FINDINGS: Lateral soft tissue swelling is present. There is no acute fracture or displacement. Mild degenerative spurring is seen on the medial malleolus. IMPRESSION: Soft tissue swelling. Mild degenerative joint disease. Otherwise negative exam of the right ankle. HISTORY: Left ankle pain. TECHNIQUE: Three views left ankle. COMPARISON: None. FINDINGS: There is soft tissue swelling laterally. No acute fracture is seen. Separate small corticated bone densities are present beneath the lateral malleolus. There is mild spurring of the medial malleolus. The talus is intact and the joint spaces are preserved. IMPRESSION: Mild degenerative and possibly old posttraumatic findings beneath the lateral malleolus. Mild soft tissue swelling. No acute fracture or displacement of the left ankle. Assessment: Tremaine Plunkett is a 63 y.o. [...] in feet; he is advised to schedule with dual visit with Ayse suarez for reprogramming and Dr. Loyola on site along with lead x-ray as he did have a fall mid December. He is advised for increased pain to continue Vicodin dosing as he is, also maximize daily Ibuprofen and Tylenol doses alternating and also using ice. He is advised he may also increase his muscle relaxant dosing to four times a day although this may cause drowsiness. He will take medrol dose pack as prescribed for pain/inflammation. Plan: Continue Vicodin 10/325 mg 1-2 tablet every 4-6 hours as needed for pain. Max 6 tabs in 24 hours. As your opioid dose remains stable, I will send electronic refills to the pharmacy for 2 subsequent months until your next appointment so you do not have to call our refill line. The fill dates for your medications are: 01/24/19 & 02/23/19 Check with your pharmacy that all prescriptions [...] 325 mg of tylenol) for postoperative pain. Take medrol (steroid) dose pack for inflammation. Schedule with Dr. Epifanio suarez here in the office - have lead x-ray completed in order to check leads after your fall. Follow-up in 8 weeks Marivel Cavazos PA-C [facility] [address] [facility] [place] [address] documented in this encounter Miscellaneous Notes Patient Instructions - HE - Marivel Cavazos PA-C - 01/24/2019 9:50 AM CDT Continue Vicodin 10/325 mg 1-2 tablet every 4-6 hours as needed for pain. Max 6 tabs in 24 hours. As your opioid dose remains stable, I will send electronic refills to the pharmacy for 2 subsequent months until your next appointment so you do not have to call our refill line. The fill dates for your medications are: 01/24/19 & 02/23/19 Check with your pharmacy that all prescriptions [...] 325 mg of tylenol) for postoperative pain. Take medrol (steroid) dose pack for inflammation. Schedule with Dr. Epifanio suarez here in the office - have lead x-ray completed in order to check leads after your fall. Follow-up in 8 weeks Marivel documented in this encounter Plan of Treatment Upcoming Encounters Date Type Specialty Care Team Description 02/17/2022 Office Visit Pain & [place] [address] [place], [place] [address] (Wo rk) documented as of this encounter Visit Diagnoses Diagnosis Chronic pain syndrome Chronic, continuous use of opioids Opioid type dependence, continuous Degeneration of lumbar or lumbosacral in tervertebral disc Lumbar radiculopathy Thoracic or lumbosacral neuritis or radi culitis, unspecified documented in this encounter Care Teams Passenger Rate Clerk Relationship Specialty Start Date End Date Marlee Coles MD PCP - General 02/10/15 05/18/21 [facility] [address] [address] [address] Tony Gray MD Referring Physician Orthopedics 10/01/14 Conner Harper MD MD Orthopedics 10/01/[address] [place] [address] documented as of this encounter
--- OUTSIDE RECORDS SUMMARY | 2022-01-27 10:17 | XMS_ITS | Encounter Summary ---
:1955 Author Organization [facility] Address [address] [place] [address] Care Team Providers Name Role Phone Tony rGay MD Unavailable Conner Harper MD Unavailable Marlee Coles MD Primary Care Provider [phone] Reason for Visit Reason Comments Back Pain Encounter Details Date Type Department Care Team Description 12/06/2017 Hospital Encounter [facility] MD Carla syndrome [address] [facility] [address] [facility] [address] [place] [address] [phone] Social History Tobacco Use Types Packs/Day Years Used Date Never Assessed Sex Assigned at Date Recorded Not on file documented as of this encounter Last Filed Vital Signs Vital Sign Reading Time Taken Comments Blood Pressure - - Pulse - - Temperature - - Respiratory Rate - - Oxygen Saturation - - Inhaled Oxygen Concentration - - Weight 99.8 kg (220 lb) 12/06/2017 10:09 AM CDT Height 170.2 cm (5' 7) 12/06/2017 10:09 AM CDT Body Mass Index 34.46 12/06/2017 10:09 AM CDT documented in this encounter Medications [...] documented as of this encounter Progress Notes Manju Krause RN - 12/06/2017 9:58 AM CDT Here with mid to low back pain to feet. Here for spinal cord stimulator consult. [facility] L[facility] MD - 12/06/2017 9:58 AM CDT Pain Center Spinal Cord Stimulator Evaluation Note ENCOUNTER DATE: 12/06/2017 Tremaine Plunkett 1955 PCP: Marlee Coles MD IMPRESSION / PLAN: Mr. Plunkett has low back pain that radiates into the lower extremities bilaterally. He has a disc herniation and foraminal stenosis that is causing irritation of the L4 and L5 nerve roots. He is not felt to be a surgical candidate. He has tried physical therapy, steroid injections, radiofrequency ablation and numerous medications for neuropathic pain, as well as long and short acting narcotics withoutsignificant relief. I feel a trial of a spinal cord stimulator would be the next treatment option for him to get pain relief and increase his functional activity. For further clinical history, see previous clinic notes. We discussed spinal cord stimulation using a spinal model. The trial process and the permanent implant process were described. His questions were answered. He will see our behavioral health psychologist and once we have that evaluation, we will submit it for insurance approval. HPI: Tremaine Plunkett is a 62 year old man with pain in the mid and low back, with radiation of the pain into the buttocks bilaterally and into the calves of both legs. It seems to skip the knee areas. He describes the pain as constant and between a 7 to a 10/10. The pain has been getting worse, especiallyin the right leg, without any new trauma or injury. He has trouble sleeping and has developed a limpin the right leg. He has also noticed some numbness in the legs, more on the right. He has disc degeneration in the lumbar spine, with lumbar radiculopathy. He had an MRI scan 11/10/2015, which showed Scheuermann???s endplate changes with a chronic L4-5 central disc herniation that encroaches on the L5 nerve roots. There is severe left :4-5 foraminal stenosis with impingement of the left L4 ganglion. There is also moderate right L4-5 and moderate left L5-S1 foraminal stenosis. Compared to the previous study in 2006, there is progression of the foraminal stenosis at L4-5 with left L4 neural impingement. The central disc herniation at L4-5 is unchanged. He is being followed by Dr. Steinberg, orthopedic surgeon, who does not think he is a surgical candidate. He had been on Nucynta and then Hysingla for long acting narcotic. These seemed to lose effectiveness. He is now on Belbuca and continues to take [place] 10/325 up to three times a day as needed. This isstill not giving him adequate pain relief. He did try to decrease the pain medication, but this gavehim significant increase in his pain. Allergies Allergen Reactions ??? Tapentadol Hives and Itching ??? Fentanyl ??? Gabapentin Hives and Swelling ??? Methadone ??? Oxycodone-Acetaminophen ??? Venom-Honey Bee Current Outpatient Prescriptions Medication Sig Dispense Refill ??? buprenorphine HCl (BELBUCA) 450 mcg Film Apply 450 mcg to cheek 2 (two) times a day for 15 days.30 each 0 ??? [START ON 12/12/2017] buprenorphine HCl (BELBUCA) 600 mcg Film Apply 600 mcg to cheek 2 (two) times a day for 15 days. 30 each 0 ??? HYDROcodone-acetaminophen (NORCO 10-325) 10-325 mg per tablet Take 1 tablet by mouth 3 (three) times a day as needed for pain. 90 tablet 0 ??? ibuprofen (ADVIL,MOTRIN) 200 MG tablet Take 1-2 tablets (200-400 mg total) by mouth every 6 (six) hours as needed for pain. 0 ??? UNABLE TO FIND 1-2 application 4 (four) times a day as needed. Med Name:COMPOUNDED CREAM cyclobenzaprine 2%, clonidine 0.2%, imipramine 3%, lidocaine 5%. ??? eldiadpckwv-oduqxwyzogdemf-kskoxrbjxduk (PREVPAC) 500-500-30 mg combo pack ??? methocarbamol (ROBAXIN) 500 MG tablet Take 1 tablet (500 mg total) by mouth at bedtime as needed. 30 tablet 2 [facility] MD [facility] documented in this encounter Plan of Treatment Upcoming Encounters Date Type Specialty Care Team Description 02/17/2022 Office Visit Pain & [place] [address] [place], [place] [address] (Wo rk) documented as of this encounter Visit Diagnoses Diagnosis Chronic pain syndrome documented in this encounter Care Teams Pedicurist Relationship Specialty Start Date End Date Marlee Coles MD PCP - General 02/10/15 05/18/[place] [address] [address] [facility] [address] [place], [place] [address] Tony Gray MD Referring Physician Orthopedics 10/01/14 Conner Harper MD MD Orthopedics 10/01/[address] [place], [place] [id number] documented as of this encounter
--- OUTSIDE RECORDS SUMMARY | 2022-01-27 10:17 | XMS_ITS | Encounter Summary ---
:1955 Author Organization [place] Address [address] [place] [address] Care Team Providers Name Role Phone Tony Gray MD Unavailable Conner Harper MD Unavailable Marlee Coles MD Primary Care Provider [phone] Reason for Visit Reason Comments Back Pain Encounter Details Date Type Department Care Team Description 12/27/2017 Hospital Encounter [facility] WarnsLexy scott terga lumbar radiculopathy; Pain Center Marivel Hernadez PA-C Chronic pain syndrome; [address] [place] Degeneration of lumbar or lumbosacral intervertebral disc; [place] [address] Chronic, continuous use of opioids [place], [place] [id number] [place], [place] [phone] [facility] Social History Tobacco Use Types [...] - - Weight 99.8 kg (220 lb) 12/27/2017 10:48 AM CDT Height 170.2 cm (5' 7) 12/27/2017 10:48 AM CDT Body Mass Index 34.46 12/27/2017 10:48 AM CDT documented in this encounter Medications [...] this encounter Progress Notes Historical Provider - 12/27/2017 10:40 AM CDT Patient is here for follow up with Marivel Cavazos PA-C in regards to his back pain Marivel Cavazos PA-C - 12/27/2017 10:40 AM CDT PAIN CENTER PROGRESS NOTE Subjective: Tremaine Plunkett is a 62 y.o. male who presents for evaluation of mid and low back pain. He has thoracic and lumbar degeneration status post work injury. He has had lumbar epidural steroid injection andlumbar radiofrequency which was effective for pain relief. He did not have relief from thoracic epidural steroid injection. Major issues: 1. Bilateral lumbar radiculopathy 2. Chronic pain syndrome 3. Lumbar Disc Degeneration 4. Chronic, continuous use of opioids Pain location and description: 10/10 constant sharp, throbbing, aching pain in mid and low back, buttock, and bilateral legs. Function rated 8. At best, pain rated 8/10 and at worst pain rated 10/10 and on average pain rated 9/10. Radiation of pain: Buttocks bilaterally, lower legs. Paresthesias, numbness, weakness: Numbness and weakness in bilateral legs, hands, feet Gait disturbance: None reported, denies recent falls. Denies AD. Exacerbating factors: bending to tie shoes, prolonged sitting, walking, cold temperatures, standing Alleviating factors: Pain medications, standing or changing positions, synera patch, back brace up to 1.5 hours daily with bending or yardwork activities Associated symptoms: Sleep disturbance due to pain waking on average 1-2. Numbness and weakness in bilateral hands and feet. Denies bowel or bladder incontinence, fever/chills, unexplained weight loss. Functional Symptoms: Pain interferes with sleep, walking, ADLs, relationships/social, sexual health,mood (angry). Adverse effects of medications: Denies constipation, drowsiness, dizziness, nausea/abdominal symptoms, itching/rash. Reports increase in headaches past month. Current treatment efficacy: Poor. Vicodin 10/325 mg 1-2 tabs TID prn. Belbuca 600 mcg every 12 hoursnot helpful. Current treatment compliance: Good; denies self-escalation of doses and no early refill requests. UDS appropriate. Keeps appointment follow-ups with pain center. Does walking and able to do 4-5 blocks daily and stretching exercise in the morning. Since the last Pain Center visit, the patient denies any use of anticoagulant medications. Denies any new diagnostic testing, new treatments or new medical conditions, any changes in medications, or any ED/urgent care visits. States back pain has worsened without new injury or trigger. States pain down back of right leg and right knee. Also has some referred pain in his left chest from the thoracic spine more than usual. He has been told by Dr. Steinberg this is coming from his thoracic spine. He has had cardiac evaluation in the past ED and negative. He was advised by Dr. Steinberg no further surgeries.Describes the majority of pain in lower back and pain in feet, he states his feet get cold and he wears socks with his sandals in summertime. He is unsure why he has more pain, no new injuries or triggers. Posterior leg pain to feet, sharp and severe. Buttock pain. He cannot get comfortable. He states he hasn't felt any relief since starting Belbuca Patient reports worsened pain symptoms despite increasing Belbuca to 600 mcg every 12 hours which isdouble the dose he was on. He states he is taking as prescribed without benefit and noticing severe daily headaches since increasing this month. States no new injuries or falls. Isn't able to do much yardwork. Bent down to cut dog's toenails and couldn't get back up. He asks about medrol dose pack as this has helped him in the past when pain was elevated. Appears last prescription was 03/2017 and he denies side effects. He also wants to proceed with spinal cord stimulator consult with Dr. Loyola. He has reviewed educational materials and thinks this is a good option for him at this time. Goal to have better pain control and allow for reduction in some of his medication doses. 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 Review of Systems Constitutional: Sleep disturbance due to pain. Denies fever, chills, night sweats, lethargy, weight loss, weight gain. Musculoskeletal: Positive for back pain, leg pain. Denies weakness, joint pain, joint swelling, recent falls. Gastrointestional: Denies difficulty swallowing, abdominal pain, change in appetite, constipation, nausea, vomiting, diarrhea, fecal incontinence. Genitourinary: Denies urinary incontinence, dysuria, hematuria, frequency, hesitancy, change in libido/erectile dysfunction. Neurologic: Numbness bilateral buttocks and legs to feet. Denies headaches, confusion, seizure, weakness, changes in balance, changes in speech. Psychiatric: Reports stress. Denies depression, anxiety, memory loss, psychoses, suicidal ideation, substance use/abuse. Objective: Vitals: 12/27/17 1048 BP: 152/90 Pulse: 70 Resp: 16 Weight: 220 lb (99.8 kg) Height: 5' 7 (1.702 m) PainSc: 10-Worst pain ever Physical Exam Constitutional- General appearance: Well developed, uncomfortable, overweight, and appearance reflects stated age. Presents alone. Standing for entire visit. Psychiatric- Judgment and insight: Normal. Speech: Normal rhythm. Thought process: Normal. No abnormal thoughts reported. Alert & Oriented to person, place, and time. Recent and remote memory: Normal. Mood and affect: Normal. Observed mood: Slightly anxious but appropriate. Respiratory- Breathing is non-labored; normal rhythm and rate. Cardiovascular- Extremities warm and well perfused, no peripheral edema or varicosities. Dermatologic- Exposed skin CDI. Musculoskeletal- Gait and station: Abnormal, antalgia on the right. Gait evaluation demonstrates ambulating independently. Patient does have difficulty rising from a seated position. Opioid [place] Precautions: UDS/Swab- 04/12/17 as expected. Consent - 08/24/17 Agreement- 08/24/17 Pharmacy- as documented [employer]- [facility] reviewed 12/27/17 as expected Count- n/a Psychological evaluation n/a MME- 30 + belbuca 36 = 66 Pharmacogenetic testing n/a DIANE 10/26/17 Imaging: None new. Assessment: Tremaine Plunkett is a 62 y.o. male seen in clinic today for [...] and moderate right L4-5 foraminal stenosis. He is educated we may consider treating with repeat lumbar epidural injection, neuropathic medication recently failed Lyrica 75 mg dose at bedtime due to SOB. Denies trials of Cymbalta, amantadine or namenda. Also could consider SCS trial and he would like to have consult with Dr. Loyola as he has failed multiple injections, PT, medications in the past. He may be interested in medical cannabis trial with goal of reducing opioids but not at this time as he plans to return to [place] and worried about cost. He has not had adequate pain control with Belbuca trial and reporting increased headache as side effect. He has failed OxyContin, Morphine, Methadone, Fentanyl, Opana ER, Hysingla, Nucynta ER, and Belbuca. There are not many extended release opioid to offer, possibly Exalgo (hydromorphone ER, but wonder about tolerability) so we discuss increasing the Vicodin dose to cover pain until we can determine if SCS trial would be helpful for pain control. Plan: Increase Vicodin 10/325 mg 1 tablet every 4-6 hours as needed for pain. Max 6 tabs in 24 hours. Refill sent to fill today. Wean off Belbuca and monitor if this is causing headaches. Reduce to 450 mcg every 12 hours x 2 days, then reduce to 300 mcg every 12 hours until those films are gone and then you can stop. Should not cause withdrawal symptoms as you have more Vicodin to take. Call with any concerns on this med change. Take medrol dose pack as directed for increased pain. May cause facial flushing, difficulty sleeping, change in appetite or mood. Continue Methocarbamol 500 mg at bedtime as needed You may continue over the counter ibuprofen with food up to 2400 mg daily or tylenol up to 3,000 mg daily (remember to calculate each Vicodin tablet has 325 mg of tylenol). Take Colace 1-2 capsules per day for stool softener. You may also try Miralax over the counter if needed for constipation. Make sure to drink water and eat fresh fruits/vegetables, fiber in your diet. Schedule with Dr. Loyola for SCS consult discussion and also complete pain psychology intake packet to schedule with them for implant diagnostic assessment. Both of these visits will then be sent to work comp for approval of a spinal cord stimulator trial. Follow-up in 4 weeks Marivel Cavazos PA-C [facility] [address] [place] [address] documented in this encounter Plan of Treatment Upcoming Encounters Date Type Specialty Care Team Description 02/17/2022 Office Visit Pain [place] [address] [place], [place] [address] (Wo rk) documented as of this encounter Visit Diagnoses Diagnosis Bilateral lumbar radiculopathy Chronic pain syndrome Degeneration of lumbar or lumbosacral in tervertebral disc Chronic, continuous use of opioids Opioid type dependence, continuous documented in this encounter Care Teams Support Teacher Relationship Specialty Start Date End Date Marlee Coles MD PCP - General 02/10/15 05/18/21 [place] [address] [place] [address] Tony Gray MD Referring Physician Orthopedics 10/01/14 Conner Harper MD MD Orthopedics 10/01/[address] [place], [place] [address] documented as of this encounter
--- OUTSIDE RECORDS SUMMARY | 2022-01-27 10:17 | XMS_ITS | Encounter Summary ---
:1955 Author Organization [place] Address [address] [place] [address] Care Team Providers Name Role Phone Tony Gray MD Unavailable Conner Harper MD Unavailable Marlee Coles MD Primary Care Provider Marivel Cavazos PA-C Unavailable Zhang Masterson Primary Care Provider Encounter Details Date Type Department Care Team Description 09/24/2018 Records - [facility] CONVERSION Scan, Non-Provider Social History Tobacco Use Types Packs/Day Years Used Date Never Assessed Sex Assigned at Date Recorded Not on file documented as of this encounter Plan of Treatment Upcoming Encounters Date Type Specialty Care Team Description 02/17/2022 Office Visit Pain & [place] [address] [place], [place] [address] (Wo rk) documented as of this encounter Visit Diagnoses Not on filedocumented in this encounter Care Teams Furnace Builder Relationship Specialty Start Date End Date Marlee Coles PCP - General 02/10/15 MD [facility] [place] [address] [place] [address] Zhang Masterson PCP - General Family Medicine 05/19/21 [address] [place] [address] Tony Gray MD Referring Physician Orthopedics 10/01/14 Conner Harper MD MD Orthopedics 10/01/[address] [place], [place] [id number] Marivel Cavazos, Assigned Surgical Provider [address] [facility] [address] [place], [place] [id number] documented as of this encounter
--- OUTSIDE RECORDS SUMMARY | 2022-01-27 10:17 | XMS_ITS | Encounter Summary ---
:1955 Author Organization [facility] Address [address] [place] [address] Care Team Providers Name Role Phone Tony Gray MD Unavailable Conner Harper MD Unavailable Marlee Coles MD Primary Care Provider [phone] Reason for Visit Reason Comments Follow Up Encounter Details Date Type Department Care Team Description 06/07/2018 Hospital Encounter [facility] Codie Cavazos [place] pain syndrome; Pain Center Marivel eHrnadez PA-C Degeneration of lumbar or lumbosacral in tervertebral disc; [address] [place] Bilateral linda mbar radiculopathy; [address] Opioid type dependence, continuous (H) [place], [place] [address] [id number] [place], [place] [phone] [address] Social History Tobacco Use Types Packs/Day Years Used Date Never Assessed Sex Assigned at Date Recorded Not on file documented as of this encounter Last Filed Vital Signs Vital Sign Reading Time Taken Comments Blood Pressure - - Pulse - - Temperature - - Respiratory Rate - - Oxygen Saturation - - Inhaled Oxygen Concentration - - Weight 99.8 kg (220 lb) 06/07/2018 10:58 AM APPLICATION PROCESSOR Height 170.2 cm (5' 7) 06/07/2018 10:58 AM APPLICATION PROCESSOR Body Mass Index 34.46 06/07/2018 10:58 AM APPLICATION PROCESSOR documented in this encounter Medications at Time [...] this encounter Progress Notes Antonietta Moreno - 06/07/2018 10:49 AM CST Pt is being seen today by JANET Perry, for refill, UDS and f/u of 6- constant, sharp back pain. F5 Marivel Lewis PA-C - 06/07/2018 10:49 AM CST PAIN CENTER PROGRESS NOTE Subjective: [...] pain syndrome 2. Lumbar Disc Degeneration 3. Bilateral lumbar radiculopathy 4. Opioid Dependence With Continuous Use Pain location and description: 6/10 constant sharp pain in low back, buttock, and bilateral legs. Function rated 5. At best, pain rated 4/10 and at worst pain rated 10/10 and on average pain rated 5/10. Radiation of pain: Buttocks bilaterally, lower legs. [...] Current treatment efficacy: Good. Vicodin 10/325 mg 1 every 4-6 hours prn max 8/24 hours. Was takingtylenol and ibuprofen last 2 weeks as pain was worse at night. Current treatment compliance: Good; denies self-escalation of doses and no early refill requests. UDS appropriate. Keeps appointment follow-ups with pain center. Does walking and able to do 4-5 blocks daily and stretching exercise in the morning. Since the last Pain Center visit, the patient denies any use of anticoagulant medications. Denies any ED/urgent care visits. States back pain has not changed overall but last couple days has worsened due to cold temperatures. He is still interested for SCS trial and did get approval but he wasn't ableto schedule the trial in time before he left so he is hoping to do this when he returns in the spring (October). He arrived back from [place] this morning and will stay for 7 days with his son for holidays. He states he has pain levels up and down since last seen. One day pain was low at 3/10 and last week in colder temps it was 8/10. He states traveling on airplane and sleeping in a different bed causes more pain. He is seeking a PCP and pain provider down there this winter as he plans to return to [place] this summer and winter in [place] in the winter and we discuss most appropriate to have a provider in each location. Vicodin dosing allows pain rating to be down to a 3/10 with Vicodin and taking tylenol in between dosing as needed not exceeding daily dose. Sometimes taking methocarbamol at bedtime only a couple timea week. Using ice morning, noon, and night and TENS unit daily. This works for 1-2 hours after removing. He cannot use it before bed as he cannot sleep afterwards. Review of Systems Constitutional: Sleep disturbance due [...] psychoses, suicidal ideation, substance use/abuse. Objective: Vitals: 06/07/18 1058 BP: 132/71 Pulse: 74 Weight: 220 lb (99.8 kg) Height: 5' 7 (1.702 m) PainSc: 6 PainLoc: Back Physical Exam Constitutional- General appearance: Well developed, comfortable able to sit for entire visit today, overweight, and appearance reflects stated age. Presents alone. Psychiatric- Judgment and insight: Normal. Speech: Normal rhythm. Thought process: Normal. No abnormal thoughts reported. Alert & Oriented to person, place, and time. Recent and remote memory: Normal. Mood and affect: Normal. Observed mood: Appropriate, in good spirits today. Respiratory- Breathing is non-labored; normal rhythm and rate. Cardiovascular- Extremities warm and well perfused, no peripheral edema or varicosities. Dermatologic- Exposed skin CDI. Musculoskeletal- Gait and station: Slight antalgia. Gait evaluation demonstrates ambulating independently. Patient does have difficulty rising from a seated position. Opioid [place] Precautions: UDS/Swab- Collected 06/07/18, results pending Consent - 08/24/17 Agreement- 08/24/17 Pharmacy- as documented MUSIC PUBLICIST- MNPMP reviewed 06/07/18 as expected Count- n/a Psychological evaluation n/a MME- 80 Pharmacogenetic testing n/a DIANE 04/03/18 Imaging: None new. Assessment: Tremaine Plunkett is [...] advised no surgery. We have recommended SCS trial and he has been approved, hoping to schedule in the spring as he is wintering in [place] for 6 months. I have advised him to establish care for PCP and pain management while he is away. He has not yet so he will return in 2 months here for follow-up. He may be interested in medical cannabis trial with goal of reducing opioids but not at this time as he plans to return to [place]. He has not had adequate pain control with Belbuca trial and reporting increased headache as side effect. He has failedOxyContin, Morphine, Methadone, Fentanyl, Opana ER, Hysingla, Nucynta ER, and Belbuca. There are notmany extended release opioid to offer, possibly Exalgo (hydromorphone ER, but wonder about tolerability) so we discuss continuing current Vicodin dose to cover pain until we can determine if SCS trial would be helpful for pain control. Plan: Continue Vicodin 10/325 mg 1-2 tablet every 4-6 hours as needed for pain. Max 8 tabs in 24 hours. As your opioid dose remains stable, I will send electronic refills to the pharmacy for 2 subsequent months until your next appointment so you do not have to call our refill line. The fill dates for your medications are: 06/10/18 & 07/10/18 Check with your pharmacy that all prescriptions [...] an explanation if this were to occur. Can take hydroxyzine for itching 25 mg capsule up to 3 times a day as needed - may cause drowsiness. Continue Methocarbamol 500 mg at bedtime as needed - refill sent to [facility]. You may continue over the counter ibuprofen with food up to 2400 mg daily or tylenol up to 3,000 mg daily (remember to calculate each Vicodin tablet has 325 mg of tylenol). Diagnostics: UDT/SWAB collected today results are pending. Patient required a random Urine Drug Test due to the need to [...] may be adjusted. Testing is being implemented across the board randomly w/o bias related to age, race, gender, socioeconomic status or hindu affiliation. Will wait to schedule with Dr. Loyola for SCS trial in the spring when you are here for several months. Follow-up in 8 weeks Marivel Cavazos PA-C [facility] [address] [facility] [place] [address] ICATION PROCESSOR documented in this encounter Plan of Treatment Upcoming Encounters Date Type Specialty Care Team Description 02/17/2022 Office Visit Pain & [place] [address] [place], [place] [address] (Wo rk) documented as of this encounter Procedures Procedure Name Priority Date/Time Associated Comments Diagnosis LABORATORY Routine 06/07/2018 3:43 PM Results f or this MISCELLANEOUS ORDER APPLICATION PROCESSOR procedur e are in the results section. MNUP MISCELLANEOUS Routine 06/07/2018 3:43 PM Res ults for this TEST APPLICATION PROCESSOR procedure are i n the results section. documented in this encounter Results [facility] Miscellaneous Test (06/07/2018 3:43 PM APPLICATION PROCESSOR) [facility] Method Time Signature [facility] SEE NOTE 06/09/2018 [facility] Miscellaneous 9:27 PM APPLICATION PROCESSOR LABORATORIES Test Comment: Test name ? Result Flag Units ??RefIntvl ?? Codeine (cutoff 40 ng/mL) ?Not Detected ? Morphine (cutoff 20 ng/mL) ?Not Detected ? 6-acetylmorphine (cutoff 20 ng/mL) ?Not Detected ? Oxycodone (cutoff 40 ng/mL) ?Not Detected ? Noroxycodone ??(cutoff 100 ng/mL) ?Not Detected ? Oxymorphone (cutoff 40 ng/mL) ?Not Detected ? Noroxymorphone ??(cutoff 100 ng/mL) ?Not Detected ? Hydrocodone (cutoff 40 ng/mL) ? Present ? Norhydrocodone ??(cutoff 100 ng/mL) ? Present ? Hydromorphone (cutoff 40 ng/mL) ?Not Detected ? Buprenorphine (cutoff 5 ng/mL) ?Not Detected ? Norbuprenorphine (cutoff 20 ng/mL) ?Not Detected ? Fentanyl (cutoff 2 ng/mL) ?Not Detected ? Norfentanyl (cutoff 2 ng/mL) ?Not Detected ? Meperidine metabolite (cutoff 50 ng/mL) ?Not Detected ? Tapentadol (cutoff 100 ng/mL) ?Not Detected ? Txvsmrzwxo-u-Lkjp (cutoff 200 ng/mL) ?Not Detected ? Methadone (cutoff 150 ng/mL) ?Not Detected ? Propoxyphene (cutoff 300 ng/mL) ?Not Detected ? Tramadol (cutoff 200 ng/mL) ?Not Detected ? Amphetamine (cutoff 100 ng/mL) ?Not Detected ? Methamphetamine (cutoff 400 ng/mL) ?Not Detected ? MDMA- Ecstasy (cutoff 200 ng/mL) ?Not Detected ? MDA (cutoff 200 ng/mL) ??Not Detected MDEA- Vashti (cutoff 200 ng/mL) ?Not Detected ? Methylphenidate (cutoff 100 ng/mL) ?Not Detected ? Phentermine (cutoff 100 ng/mL) ?Not Detected ? Benzoylecgonine (cutoff 150 ng/mL) ?Not Detected ? Alprazolam (cutoff 40 ng/mL) ?Not Detected ? Bhnjd-DL-Gjuzvhglrg (cutoff 20 ng/mL) ?Not Detected ? Clonazepam (cutoff 20 ng/mL) ?Not Detected ? 7-Aminoclonazepam (cutoff 40 ng/mL) ?Not Detected ? Diazepam (cutoff 50 ng/mL) ?Not Detected ? Nordiazepam (cutoff 50 ng/mL) ?Not Detected ? Oxazepam (cutoff 50 ng/mL) ?Not Detected ? Temazepam (cutoff 50 ng/mL) ?Not Detected ? Lorazepam (cutoff 60 ng/mL) ?Not Detected ? Midazolam (cutoff 20 ng/mL) ?Not Detected ? Zolpidem (cutoff 20 ng/mL) ?Not Detected ? Barbiturates (cutoff 200 ng/mL) ?Not Detected ? Creatinine, Urine ? 3 5.0 ? mg/dL 20.0-400.0 Ethyl Glucuronide (cutoff 500 ng/mL) ?Not Detected ? Marijuana Metabolite (cutoff 20 ng/mL) ?Not Detected ? PCP (cutoff 25 ng/mL) ?? Not Detected Carisoprodol (cut-off 100 ng/mL) ?Not Detected ? The carisoprodol immunoassay has cross-r eactivity to carisoprodol and meprobamate. Pain Management Drug Panel ? See Below ? Methodology: Qualitative Enzyme Immunoas say and Qualitative [...] and its performa nce characteristics determined by [employer]. The U.S . Food and Drug Administration has not approved or clear ed this test; however, FDA clearance or approval is not currently r equired for clinical use. The results are not intended to be used as the sole means for clinical diagnosis or patient management decisions. EER Pain Mgt Drug Chew, Fitness And Wellness Instructor/EMITU ?See Note ? Access [employer] Enhanced Report using either link below: -Direct access: [email or web address] -Enter Username, Password: [email or web address] Username: [email or web address] Password: [email or web address] Performed by [employer], [address] [place] [address] [id number] [email or web address], Da Thakur MD, Lab. Director Specimen Anatomical Collection Method Collection Time Receive d Time (Source) Location / / Volume Laterality Urine specimen Non-blood 06/07/2018 3:43 PM 018 (specimen) Collection / APPLICATION PROCESSOR 11:54 PM APPLICATION PROCESSOR Unknown Narrative LS [facility] - 06/09/2018 9:27 PM APPLICATION PROCESSOR ?? Please call [employer] at [phone] for Weight Guesser consultation or assistance with interpre tation if needed. Marivel Cavazos PA-C LAB - BLOOD ORDERABLES Performing Organization Address City/State/ZIP Code Phon e Number [facility] [place], [place] [phone] [place] [phone] [address] [facility] : Laboratory Miscellaneous Order (06/07/2018 3:43 PM APPLICATION PROCESSOR) Component Value Ref Test Analysis Performed At [facility] Range Method Time Signature Miscellaneous Chemistry 06/10/2018 [facility] Test Dept. Reference Test 10:08 AM [facility] Test Name Pain Management 06/10/2018 [facility] Drug Panel,Mass 10:08 AM [facility] Spec/EMIT [facility] Performing Lab [facility] 06/10/2018 [facility] [address] [facility] 10:08 [place] [address] [facility] See Scanned See [facility] 06/10/2018 [facility] Result Miscellaneous 10:08 AM LABORATORIES Test for results APPLICATION PROCESSOR Specimen Anatomical Collection Method Collection Time Receive d Time (Source) Location / / Volume Laterality Urine specimen Non-blood 06/07/2018 3:43 PM 018 (specimen) Collection / APPLICATION PROCESSOR 10:20 AM APPLICATION PROCESSOR Unknown Marivel Cavazos PA-C LAB - BLOOD ORDERABLES Performing Organization Address City/State/ZIP Code Phon e Number [facility] [place], [place] [phone] [address] [facility] [phone] [address] [facility] [address] [place] [address] documented in this encounter Visit Diagnoses Diagnosis Chronic pain syndrome Degeneration of lumbar or lumbosacral in tervertebral disc Bilateral lumbar radiculopathy Opioid type dependence, continuous (H) Opioid type dependence, continuous documented in this encounter Care Teams Second Vp Hr Assessment Relationship Specialty Start Date End Date Marlee Coles MD PCP - General 02/10/15 05/18/21 [place] [address] [address] [phone] Tony Gray MD Referring Physician Orthopedics 10/01/14 Conner Harper MD MD Orthopedics 10/01/[address] [place], [place] [address] documented as of this encounter
--- OUTSIDE RECORDS SUMMARY | 2022-01-27 10:17 | XMS_ITS | Encounter Summary ---
:1955 Author Organization [facility] Address [address] [place] [address] Care Team Providers Name Role Phone Tony Gray MD Unavailable Conner Harper MD Unavailable Marlee Coles MD Primary Care Provider [phone] Reason for Visit Reason Comments Medication Refill Encounter Details Date Type Department Care Team Description 08/30/2018 Communication - [facility] Pain Center Jessica, RN [address] [facility] [address] [place] [address] Social History Tobacco Use Types Packs/Day Years Used Date Never Assessed Sex Assigned at Date Recorded Not on file documented as of this encounter Miscellaneous Notes Telephone Encounter - Hawa Jiang RN - 08/31/2018 1:16 PM CDT Called pt and reviewed taper schedule. He voiced understanding. Telephone Encounter - Marivel Cavazos PA-C - 08/31/2018 12:14 PM CDT He will be given refill for tapering: Week 1: 2 in am, 2 in pm Week 2: 2 in am, 1 in pm Week 3: 1 in am and 1 in pm Week 4: 1 a day as needed then done until he is seen. Telephone Encounter - Hawa Jiang RN - 08/31/2018 11:44 AM CDT Called pt and gave Marivel's response as written. Reports he takes Semmes 2 AM, 2 PM and 2 HS. On the days when he has less pain he takes 2 tabs in AM and 2 at HS. Telephone Encounter - Marivel Cavazos PA-C - 08/31/2018 7:01 AM CDT I cannot give him a 30 day RX as he missed his appointment and will be outside the 3 month period which is the guideline from [facility] for prescribing. We discussed these concerns when he chose to live in [place] for the winter and commute here for his follow-ups. Please assess how he has been taking Vicodin as it has lasted longer as last fill date was 07/10/18 for 30 days. When I am aware of his dosing,I can provide a short taper of medications. Telephone Encounter - Hawa Jiang RN - 08/30/2018 5:00 PM CDT [place] app[place]. Is requesting 1 month script of Semmes and Robaxin and will plan to be scheduled by October 17. Advised pt that he hasn't been seen since 06/07/18 and was supposed to return in 8 weeks. States his daughter will be going to visit him and could bring the script to him. Is also asking to have SCS Trial scheduled in October. Nurse told pt will check with [place] to make sure it's still approved, then he'll be called to schedule. documented in this encounter Plan of Treatment Upcoming Encounters Date Type Specialty Care Team Description 02/17/2022 Office Visit Pain & [place] [address] [place], [place] [address] (Wo rk) documented as of this encounter Visit Diagnoses Diagnosis Chronic pain syndrome documented in this encounter Care Teams Sccm Administrator Relationship Specialty Start Date End Date Marlee Coles MD PCP - General 02/10/15 05/18/21 [place] [address] [address] [place], [place] [phone] Tony Gray MD Referring Physician Orthopedics 10/01/14 Conner Harper MD MD Orthopedics 10/01/14 [address] [facility] [address] [place], [place] [address] documented as of this encounter
--- OUTSIDE RECORDS SUMMARY | 2022-01-27 10:17 | XMS_ITS | Encounter Summary ---
:1955 Author Organization [facility] Address [address] [facility] [place] [address] Care Team Providers Name Role Phone Tony Gray MD Unavailable Conner Harper MD Unavailable Marlee Coles MD Primary Care Provider Marivel Cavazos PA-C Unavailable Zhang Masterson Primary Care Provider Encounter Details Date Type Department Care Team Description 02/21/2018 Records - [facility] CONVERSION Scan, Non-Provider Social History Tobacco Use Types Packs/Day Years Used Date Never Assessed Sex Assigned at Date Recorded Not on file documented as of this encounter Plan of Treatment Upcoming Encounters Date Type Specialty Care Team Description 02/17/2022 Office Visit Pain & [place] [address] [place], [place] [address] (Wo rk) documented as of this encounter Visit Diagnoses Not on filedocumented in this encounter Care Teams Social Media Marketing Manager Relationship Specialty Start Date End Date Marlee Coles PCP - General 02/10/15 MD [facility] [place] [address] [place] [address] Zhang Masterson PCP - General Family Medicine 05/19/21 [address] [facility] [place] [address] Tony Gray MD Referring Physician Orthopedics 10/01/14 Conner Harper MD MD Orthopedics 10/01/[address] [place], [place] [address] Marivel Cavazos, Assigned Surgical Provider 1 [address] [facility] [address] [place], [place] [phone] documented as of this encounter
--- OUTSIDE RECORDS SUMMARY | 2022-01-27 10:17 | XMS_ITS | Encounter Summary ---
:1955 Author Organization [facility] Address [address] [facility] [place] [address] Care Team Providers Name Role Phone Tony Gray MD Unavailable Conner Harper MD Unavailable Marlee Coles MD Primary Care Provider Encounter Details Date Type Department Care Team Description 11/28/2018 Surgery - [facility] MD [address] [facility] [place] [address] [facility] [address] [place], [place] [phone] Social History Tobacco Use Types Packs/Day Years Used Date Never Assessed Sex Assigned at Date Recorded Not on file documented as of this encounter Plan of Treatment Upcoming Encounters Date Type Specialty Care Team Description 02/17/2022 Office Visit Pain & [place] [address] [place], [place] [address] (Wo rk) documented as of this encounter Visit Diagnoses Not on filedocumented in this encounter Care Teams Trust Manager Assistant Relationship Specialty Start Date End Date Marlee Coles MD PCP - General 02/10/15 05/18/21 [place] [address] [address] [facility] [place] [address] [place], [place] [phone] Tony Gray MD Referring Physician Orthopedics 10/01/14 Conner Harper MD MD Orthopedics 10/01/14 [address] [facility] [address] [place] [address] documented as of this encounter
--- OUTSIDE RECORDS SUMMARY | 2022-01-27 10:17 | XMS_ITS | Encounter Summary ---
:1955 Author Organization [facility] Address [address] [place] [address] Care Team Providers Name Role Phone Tony Gray MD Unavailable Conner Harper MD Unavailable Marlee Coles MD Primary Care Provider [phone] Encounter Details Date Type Department Care Team Description 10/19/2018 [facility] Sharona Leach, [facility] Pain Center RN [address] [facility] [address] [place] [address] Social History Tobacco Use Types Packs/Day Years Used Date Never Assessed Sex Assigned at Date Recorded Not on file documented as of this encounter Progress Notes Sharona Leach - 10/19/2018 11:17 AM CDT The patient was in clinic today to see Marivel for a follow up. Nurse applied adhesives/tapes to the right forearm of the patient that are used for scs trials that the pt is scheduled to have.Mastisol, steri strip, tegaderm, and stayfix applied to see if the pt has any reaction to these products. The patient will follow up with the Pain clinic if he has any allergic reactions from these adhesives. documented in this encounter Plan of Treatment Upcoming Encounters Date Type Specialty Care Team Description 02/17/2022 Office Visit Pain & [place] [address] [place], [place] [address] (Wo rk) documented as of this encounter Visit Diagnoses Not on filedocumented in this encounter Care Teams Head Filter Press Tender Relationship Specialty Start Date End Date Marlee Coles MD PCP - General 02/10/15 05/18/21 [place] [address] [address] [phone] Tony Gray MD Referring Physician Orthopedics 10/01/14 Conner Harper MD MD Orthopedics 10/01/[address] [place], [place] [address] documented as of this encounter
--- OUTSIDE RECORDS SUMMARY | 2022-01-27 10:17 | XMS_ITS | Encounter Summary ---
:1955 Author Organization [place] Address [address] [facility] [place] [address] Care Team Providers Name Role Phone Tony Gray MD Unavailable Conner Harper MD Unavailable Marlee Coles MD Primary Care Provider Reason for Visit Reason Comments Other SCS Implant Encounter Details Date Type Department Care Team Description 11/15/2018 Communication - [facility] Hawa Mendoza (SCS Implant) [facility] CARLINE Lopez [address] [facility] [address] [place] [address] Social History Tobacco Use Types Packs/Day Years Used Date Never Assessed Sex Assigned at Date Recorded Not on file documented as of this encounter Miscellaneous Notes Telephone Encounter - Hawa Jiang - 11/15/2018 9:20 AM CDT Called pt to schedule SCS Implant 11/29 at 0700 at [facility]. Reviewed and mailed pre-op instructions to the pt. He is aware of need for pre- op physical and tow motor driver. E-mail sent to vendor to notify of surgery date. documented in this encounter Plan of Treatment Upcoming Encounters Date Type Specialty Care Team Description 02/17/2022 Office Visit Pain & [place] [address] [address] [place], [place] [address] (Wo rk) documented as of this encounter Visit Diagnoses Diagnosis Lumbar radiculopathy Thoracic or lumbosacral neuritis or radi culitis, unspecified documented in this encounter Care Teams Shellfish Grower Relationship Specialty Start Date End Date Marlee Coles MD PCP - General 02/10/15 05/18/21 [place] [address] [address] [address] Tony Gray MD Referring Physician Orthopedics 10/01/14 Conner Harper MD MD Orthopedics 10/01/[address] [place], [place] [address] documented as of this encounter
--- OUTSIDE RECORDS SUMMARY | 2022-01-27 10:17 | XMS_ITS | Encounter Summary ---
:1955 Author Organization [place] Address [address] [facility] [place] [address] Care Team Providers Name Role Phone Tony Gray MD Unavailable Conner Harper MD Unavailable Marlee Coles MD Primary Care Provider Reason for Visit Reason Comments Pre-Op Exam Encounter Details Date Type Department Care Team Description 11/15/2018 Communication - [facility] Hawa Jiang Pr e-Op Exam [facility] RN [address] [facility] [address] [place] [address] Social History Tobacco Use Types Packs/Day Years Used Date Never Assessed Sex Assigned at Date Recorded Not on file documented as of this encounter Miscellaneous Notes Telephone Encounter - Hawa Jiang - 11/15/2018 10:58 AM CDT Called pt regarding surgery orders. He'll call back with the name of his PMD tomorrow, but thinks itwill be Dr Masterson. documented in this encounter Plan of Treatment Upcoming Encounters Date Type Specialty Care Team Description 02/17/2022 Office Visit [facility] & [place] [address] [place], [place] [address] (Wo rk) documented as of this encounter Visit Diagnoses Not on filedocumented in this encounter Care Teams Base Wad Operator Adjuster Relationship Specialty Start Date End Date Marlee Coles MD PCP - General 02/10/15 05/18/21 [place] [address] [place] [address] Tony Gray MD Referring Physician Orthopedics 10/01/14 Conner Haprer MD MD Orthopedics 10/01/14 [address] [facility] [address] [place] [address] documented as of this encounter
--- OUTSIDE RECORDS SUMMARY | 2022-01-27 10:17 | XMS_ITS | Encounter Summary ---
:1955 Author Organization [place] Address [address] [place] [address] Care Team Providers Name Role Phone Tony Gray MD Unavailable Conner Harper MD Unavailable Marlee Coles MD Primary Care Provider [phone] Encounter Details Date Type Department Care Team Description 12/06/2018 Hospital [facility] Hugo Aguirre MD [address] [facility] [address] [place] [address] [phone] Social History Tobacco Use Types Packs/Day Years [...] documented as of this encounter Progress Notes Brigid Norman - 12/06/2018 10:48 AM CDT Patient here for first post-op appointment post spinal cord stimulator implant. Incisions dry and intact x2, patient is afebrile. [employer] account development representative here to initiate stimulation and patient education. Patient to follow up as needed. Hugo Loyola MD - 12/06/2018 10:48 AM CDT Postop follow-up note 12/06/2018 Mr. Plunkett had a spinal cord stimulator placed 1 week ago. He is still slightly tender in the incisional areas. He is here today to have the stimulator turned on. The incisions are healing well. There is no redness, swelling, bleeding or drainage noted. There is a small amount of Dermabond still in place. He did note some aching on the inside of the upper left arm. There is no bruising or tenderness. This may have been secondary to arm positioning during the surgery. The [employer] account development representative was here and he turned on the stimulator and gave him some additional programs to use. He was instructed in the charging. He will be returning next week for an appointment withMarivel Cavazos for medication management and we will reassess at that time. documented in this encounter Plan of Treatment Upcoming Encounters Date Type Specialty Care Team Description 02/17/2022 Office Visit Pain & [place] [address] [place], [place] [address] (Wo rk) documented as of this encounter Visit Diagnoses Diagnosis Lumbar radiculopathy Thoracic or lumbosacral neuritis or radi culitis, unspecified documented in this encounter Care Teams Efficiency Miner Relationship Specialty Start Date End Date Marlee Coles MD PCP - General 02/10/15 05/18/21 [facility] [place] [address] [address] [address] Tony Gray MD Referring Physician Orthopedics 10/01/14 Conner Harper MD MD Orthopedics 10/01/[address] [facility] [place], [place] [address] [place] [address] documented as of this encounter
--- OUTSIDE RECORDS SUMMARY | 2022-01-27 10:17 | XMS_ITS | Encounter Summary ---
:1955 Author Organization [place] Address [address] [place] [address] Care Team Providers Name Role Phone Tony Gray MD Unavailable Conner Harper MD Unavailable Marlee Coles MD Primary Care Provider [phone] Reason for Visit Reason Comments Follow Up Encounter Details Date Type Department Care Team Description 04/03/2018 Hospital Encounter [facility] Codie Cavazos [place] pain syndrome; Pain Center Marivel Hernadez PA-C Degeneration of lumbar or lumbosacral in tervertebral disc; [address] Bilateral linda mbar radiculopathy; [place] [address] Degeneration of thoracic intervertebral disc; [place], [place] [address] Chronic, continuous use of opioids [id number] [place], [place] [phone] [address] Social History Tobacco Use Types Packs/Day Years Used Date Never Assessed Sex Assigned at Date Recorded Not on file documented as of this encounter Last Filed Vital Signs Vital Sign Reading Time Taken Comments Blood Pressure - - Pulse - - Temperature - - Respiratory Rate - - Oxygen Saturation - - Inhaled Oxygen Concentration - - Weight 99.8 kg (220 lb) 04/03/2018 9:33 AM CDT Height 170.2 cm (5' 7) 04/03/2018 9:33 AM CDT Body Mass Index 34.46 04/03/2018 9:33 AM CDT documented in this encounter Medications [...] this encounter Progress Notes Antonietta Moreno - 04/03/2018 9:30 AM CDT Pt is being seen today by JANET Perry, for f/u of back pain and refill. Due for DIANE. Marivel Cavazos PA-C - 04/03/2018 9:30 AM CDT Images from the original note were not included. Progress Notes by Marivel Cavazos PA-C at 04/03/2018 9:30 AM Author: Marivel Cavazos PA-C Service: -- Author Type: Physician Perfume Maker Filed: 04/03/2018 10:17 AM Date of Service: 04/03/2018 9:30 AM Status: Signed Res Habilitation Assistant: Marivel Cavazos PA-C (Physician Perfume Maker) PAIN CENTER PROGRESS NOTE Subjective: Tremaine Plunkett [...] Disc Degeneration 3. Bilateral lumbar radiculopathy 4. Degeneration of thoracic intervertebral disc 5. Chronic, continuous use of opioids Pain location and description: 8/10 constant sharp pain in mid and low back, buttock, and bilateral legs. Function rated 6. At best, pain rated 4/10 and at worst pain rated 8/10 and on average pain rated 6/10. Radiation of pain: Buttocks bilaterally, lower legs. [...] itching/rash. Reports increase in headaches past month. States some itching from Vicodin. Not taking antihistamines. Current treatment efficacy: Good. Vicodin 10/325 mg 1 every 4-6 hours prn max 8/24 hours. Current treatment compliance: Good; denies self-escalation of [...] days has worsened due to cold temperatures. States pain down back of right leg and right knee. Describes the majority ofpain in lower back and pain in feet. He will leave for [place] this . He will be gone all winter for 6 months. He isn't sure yet who he will see for pain and will return in May for follow-up but is going to try to establish care there as well as he has a house in [facility]. He is still interested for SCS trial and did get approval but he wasn't able to schedule the trial in time beforehe left so he is hoping to do this when he returns in the spring. Driving to [place] takes 4- 6 days due to back pain. He states he will fly back at [place]. Vicodin dosing allows pain rating to be down to a 3/10 with Vicodin and taking tylenol in between dosing as needed not exceeding daily dose. Yesterday took 2 vicodin in am and 2 before lunch and 2 early evening and 2 before bedtime and work up at 0300 and took 2 and 0830 repeated dose as pain bad fromcold weather. He doesn't always take 2 per dose. States his notices him itching more when he takes this often. He denies other side effects, denies rash. Sometimes taking methocarbamol at bedtime only a couple time a week. Using ice morning, noon, and night and TENS unit daily. This works for 1-2hours after removing. He cannot use it before [...] psychoses, suicidal ideation, substance use/abuse. Objective: Vitals: 04/03/18 0933 BP: 144/73 Pulse: 63 Weight: 220 lb (99.8 kg) Height: 5' 7 (1.702 m) PainSc: 8 PainLoc: Back Physical Exam Constitutional- General appearance: Well developed, uncomfortable, overweight, and appearance reflects stated age. Presents alone. Able to sit for entire visit. Psychiatric- Judgment and insight: [...] difficulty rising from a seated position. Opioid Toyah Precautions: UDS/Swab- 04/12/17 as expected. Consent - 08/24/17 Agreement- 08/24/17 Pharmacy- as documented LICENSING ENGINEER- [facility] reviewed 04/03/18 as expected Count- n/a Psychological evaluation n/a MME- 80 Pharmacogenetic testing n/a DIANE Score: 23 04/03/18 Imaging: None new. Assessment: Tremaine Plunkett [...] schedule in the spring as he is leaving this week for 6 months in [place]. I have advised him to establish care for PCP and pain management while he is away. He has not yet so he will return in 2 months here for follow-up. He may be interested in medical cannabistrial with goal of reducing opioids but not at this time as he plans to return to [place] and worried about cost. He has not had adequate pain control with Belbuca trial and reporting increased headache as side effect. He has failed OxyContin, Morphine, Methadone, Fentanyl, Opana ER, Hysingla, NucyntaER, and Belbuca. There are not many extended release opioid to offer, possibly Exalgo (hydromorphoneER, but wonder about tolerability) so we discuss continuing current Vicodin dose to cover pain untilwe can determine if SCS trial would be helpful for pain control. Plan: Continue Vicodin 10/325 mg 1-2 tablet every 4-6 hours as needed for pain. Max 8 tabs in 24 hours. Refill sent to fill today due to travel but DO NOT START taking until 04/12/18. As your opioid dose remains stable, I will send electronic refills to the pharmacy for 2 subsequent months until your next appointment so you do not have to call our refill line. The fill dates for your medications are: Now for use 04/12/18 & 05/12/18 Check with your pharmacy that all prescriptions [...] bedtime as needed - refill sent to [facility]. You may continue over the counter ibuprofen with food up to 2400 mg daily or tylenol up to 3,000 mg daily (remember to calculate each Vicodin tablet has 325 mg of tylenol). Will wait to schedule with Dr. Loyola for SCS trial in the spring when you are here for several months. Follow-up in 8 weeks Marivel Cavazos PA-C [facility] [address] [place] [address]. 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 Bilateral lumbar radiculopathy Degeneration of thoracic intervertebral disc Degeneration of thoracic or thoracolumba r intervertebral disc Chronic, continuous use of opioids Opioid type dependence, continuous documented in this encounter Care Teams Analytics Leader Relationship Specialty Start Date End Date Marlee Coles MD PCP - General 02/10/15 05/18/21 [facility] [place] [address] [address] [address] Tony Gray MD Referring Physician Orthopedics 10/01/14 Conner Harper MD MD Orthopedics 10/01/14 [facility] [place], [place] [id number] [place] [address] documented as of this encounter
--- OUTSIDE RECORDS SUMMARY | 2022-01-27 10:17 | XMS_ITS | Encounter Summary ---
:1955 Author Organization [place] Address [address] [place] [address] Care Team Providers Name Role Phone Tony Gray MD Unavailable Conner Harper MD Unavailable Marlee Coles MD Primary Care Provider [phone] Encounter Details Date Type Department Care Team Description 01/30/2019 Hospital [facility] Hugo Aguirre MD [address] [facility] [address] [facility] [address] [place] [address] [phone] Social History Tobacco Use Types Packs/Day Years Used Date Never Assessed Sex Assigned at Date Recorded Not on file documented as of this encounter Last Filed Vital Signs Vital Sign Reading Time Taken Comments Blood Pressure - - Pulse - - Temperature - - Respiratory Rate - - Oxygen Saturation - - Inhaled Oxygen Concentration - - Weight 106.6 kg (235 lb) 01/30/2019 10:13 AM CDT Height 172.7 cm (5' 8) 01/30/2019 10:13 AM CDT Body Mass Index 35.73 01/30/2019 10:13 AM CDT documented in this encounter [...] documented as of this encounter Progress Notes Anjali Naylor - 01/30/2019 9:56 AM CDT In clinic to day to see kristopher with regards to SCD programming Hugo Loyola MD - 01/30/2019 9:56 AM CDT Follow-up spinal cord stimulation evaluation 01/30/2019 Mr. Plunkett is a 63-year-old man with back pain and leg pain. He had a spinal cord stimulator placed 11/29/2018. Recently he was camping and felt that he was getting uncomfortable stimulation in the legsfrom the stimulator. He felt some twinging and cramping in his calves. He actually fell and twisted his ankles. Thoracic spine x-rays today showed good positioning of the stimulator electrodes. The KRISTOPHER apprenticeship representative was here and interrogated in the system. [...] symptoms as he had during the trial. We will follow-up to see if he is getting good coverage of his pain again and that he is not having any side effects. documented in this encounter Miscellaneous Notes Patient Instructions - HE - Anjali Naylor - 01/30/2019 9:56 AM CDT You were seen in clinic today for reprogramming of your SCS with Kristopher apprenticeship representative. Dr. Loyola reviewed your xrays with you and the SCS. Please contact Kristopher with any further concerns or questions regarding the SCS programming documented in this encounter Plan of Treatment Upcoming Encounters Date Type Specialty Care Team Description 02/17/2022 Office Visit Pain & [place] [address] [place], [place] [address] (Wo rk) documented as of this encounter Visit Diagnoses Diagnosis Lumbar radiculopathy Thoracic or lumbosacral neuritis or radi culitis, unspecified documented in this encounter Care Teams Skin Fitter Relationship Specialty Start Date End Date Marlee Coles MD PCP - General 02/10/15 05/18/21 [place] [address] [address] [id number] Tony Gray MD Referring Physician Orthopedics 10/01/14 Conner Harper MD MD Orthopedics 10/01/14 [address] [facility] [address] [place], [place] [address] documented as of this encounter
--- OUTSIDE RECORDS SUMMARY | 2022-01-27 10:17 | XMS_ITS | Encounter Summary ---
:1955 Author Organization [place] Address [address] [facility] [place] [address] Care Team Providers Name Role Phone Tony Gray MD Unavailable Conner Harper MD Unavailable Marlee Coles MD Primary Care Provider [phone] Encounter Details Date Type Department Care Team Description 02/21/2018 [facility] Sharona Leach, [facility] Pain Center RN [address] [facility] [address] [place] [address] Social History Tobacco Use Types Packs/Day Years Used Date Never Assessed Sex Assigned at Date Recorded Not on file documented as of this encounter Plan of Treatment Upcoming Encounters Date Type Specialty Care Team Description 02/17/2022 Office Visit Pain & [place] [address] [place], [place] [address] (Wo rk) documented as of this encounter Visit Diagnoses Not on filedocumented in this encounter Care Teams Laundry Route Driver Relationship Specialty Start Date End Date Marlee Coles MD PCP - General 02/10/15 05/18/21 [place] [address] [address] [place] [address] Tony Gray MD Referring Physician Orthopedics 10/01/14 Conner Harper MD MD Orthopedics 10/01/[address] [place] [address] documented as of this encounter
--- OUTSIDE RECORDS SUMMARY | 2022-01-27 10:17 | XMS_ITS | Encounter Summary ---
:1955 Author Organization [place] Address [address] [facility] [address] Care Team Providers Name Role Phone Tony Gray MD Unavailable Conner Harper MD Unavailable Marlee Cloes MD Primary Care Provider Reason for Visit Reason Comments Other refill question Encounter Details Date Type Department Care Team Description 03/12/2018 Communication - [facility] Marcela Isabel Other (refill [facility] A, RN question) [address] [facility] [address] [place] [address] Social History Tobacco Use Types Packs/Day Years Used Date Never Assessed Sex Assigned at Date Recorded Not on file documented as of this encounter Plan of Treatment Upcoming Encounters Date Type Specialty Care Team Description 02/17/2022 Office Visit Pain & [place] [address] [place], [place] [address] (Wo rk) documented as of this encounter Visit Diagnoses Diagnosis Chronic pain syndrome documented in this encounter Care Teams Refrigeration System Installer Relationship Specialty Start Date End Date Marlee Coles MD PCP - General 02/10/15 05/18/21 [place] [address] [address] [facility] [address] [place] [address] Tony Gray MD Referring Physician Orthopedics 10/01/14 Conner Harper MD MD Orthopedics 10/01/[address] [place] [address] documented as of this encounter
--- OUTSIDE RECORDS SUMMARY | 2022-01-27 10:17 | XMS_ITS | Encounter Summary ---
:1955 Author Organization [place] Address [address] [facility] [place] [address] Care Team Providers Name Role Phone Tony Gray MD Unavailable Conner Harper MD Unavailable Marlee Coles MD Primary Care Provider Encounter Details Date Type Department Care Team Description 10/22/2018 [facility] Sharona Leach, [facility] Pain Center RN [address] [facility] [address] [place] [address] Social History Tobacco Use Types Packs/Day Years Used Date Never Assessed Sex Assigned at Date Recorded Not on file documented as of this encounter Plan of Treatment Upcoming Encounters Date Type Specialty Care Team Description 02/17/2022 Office Visit Pain & [place] [address] [place], [place] [address] (Wo rk) documented as of this encounter Visit Diagnoses Not on filedocumented in this encounter Care Teams Direct Casting Operator Relationship Specialty Start Date End Date Marlee Coles MD PCP - General 02/10/15 05/18/21 [place] [address] [address] [place] [address] Tony Gray MD Referring Physician Orthopedics 10/01/14 Conner Harper MD MD Orthopedics 10/01/[address] [place] [address] documented as of this encounter
--- OUTSIDE RECORDS SUMMARY | 2022-01-27 10:17 | XMS_ITS | Encounter Summary ---
:1955 Author Organization [place] Address [address] [place] [address] Care Team Providers Name Role Phone Tony Gray MD Unavailable Conner Harper MD Unavailable Marlee Coles MD Primary Care Provider Marivel Cavazos PA-C Unavailable Zhang Masterson Primary Care Provider Encounter Details Date Type Department Care Team Description 12/06/2017 Records - [facility] CONVERSION Scan, Non-Provider Social History Tobacco Use Types Packs/Day Years Used Date Never Assessed Sex Assigned at Date Recorded Not on file documented as of this encounter Plan of Treatment Upcoming Encounters Date Type Specialty Care Team Description 02/17/2022 Office Visit Pain & [place] [address] [place], [place] [address] (Wo rk) documented as of this encounter Visit Diagnoses Not on filedocumented in this encounter Care Teams Promotions Officer Relationship Specialty Start Date End Date Marlee Coles PCP - General 02/10/15 MD [facility] [place] [address] [address] [place] [address] Zhang Masterson PCP - General Family Medicine 05/19/21 [address] [facility] [place] [address] Tony Gray MD Referring Physician Orthopedics 10/01/14 Conner Harper MD MD Orthopedics 10/01/[address] [place], [place] [address] Marivel Cavazos, Assigned Surgical Provider 1 MATT [address] [facility] [address] [place], [place] [id number] documented as of this encounter
--- OUTSIDE RECORDS SUMMARY | 2022-01-27 10:17 | XMS_ITS | Encounter Summary ---
:1955 Author Organization [place] Address [address] [facility] [place] [address] Care Team Providers Name Role Phone Tony Gray MD Unavailable Conner Harper MD Unavailable Marlee Coles MD Primary Care Provider [phone] Reason for Visit Reason Comments Other SCS Trial Instructions Encounter Details Date Type Department Care Team Description 10/11/2018 Communication - [facility] Hawa Jiang Other (SCS Trial [facility] Pain Center A, RN Instructions) [address] [facility] [address] [place] [address] Social History Tobacco Use Types Packs/Day Years Used Date Never Assessed Sex Assigned at Date Recorded Not on file documented as of this encounter Miscellaneous Notes Telephone Encounter - Hawa Jiang - 10/11/2018 10:26 AM CDT Call to pt to review SCS Trial procedure, meds, 0700 arrival time and to bring a trash truck driver who can be available for instruction post-procedure. Pt states he had problems with redness and itching from a picc line dressing in the past. Advised pt to have dressing that will be used for his procedure applied when he comes to his follow-up visit 10/19 to make sure he tolerates it. Pt agreed with the plan andvoiced understanding of all instructions. Pt requests Valium pre- procedure. Meds queued and routed to Dr Loyola to be filled at [facility]. documented in this encounter Plan of Treatment Upcoming Encounters Date Type Specialty Care Team Description 02/17/2022 Office Visit Pain & [place] [address] [place], [place] [address] (Wo rk) documented as of this encounter Visit Diagnoses Diagnosis Lumbar radiculopathy Thoracic or lumbosacral neuritis or radi culitis, unspecified documented in this encounter Care Teams Gear Generator Set Up Operator Relationship Specialty Start Date End Date Marlee Coles MD PCP - General 02/10/15 05/18/21 [place] [address] [address] [address] Tony Gray MD Referring Physician Orthopedics 10/01/14 Conner Harper MD MD Orthopedics 10/01/[address] [place], [place] [id number] documented as of this encounter
--- OUTSIDE RECORDS SUMMARY | 2022-01-27 10:17 | XMS_ITS | Encounter Summary ---
:1955 Author Organization [facility] Address [address] [place] [address] Care Team Providers Name Role Phone Tony Gray MD Unavailable Conner Harper MD Unavailable Marlee Coles MD Primary Care Provider [phone] Encounter Details Date Type Department Care Team Description 01/30/2019 Hospital Encounter [facility] Dirk, Regulatory Intern [place] pain [facility] ARGELIA Lundberg syndrome Diagnostic Imaging [address] [address] [place], [place] [phone] [address] Social History Tobacco Use Types Packs/Day Years [...] Pain & [place] [address] [place], [place] [address] (Wo rk) documented as of this encounter Procedures Procedure Name Priority Date/Time Associated Diagnosis Comme nts XR THORACIC SPINE 2 Routine 01/30/2019 9:09 AM Chronic pain Re sults for this VIEWS CDT syndrome procedure are i n the results section. documented in this encounter Results XR Thoracic Spine 2 Views (01/30/2019 9:09 AM CDT) Anatomical Region Laterality Modality C-spine, T-spine, L-spine, Chest Other Specimen (Source) Anatomical Location Collection Method / Collectio n Time Received Time / Laterality Volume Narrative 01/30/2019 11:32 PM CDT EXAM: XR THORACIC SPINE 2 VWS LOCATION: [facility] DATE/TIME: 01/30/2019 9:09 AM INDICATION: lead check for SCS device - patient fell and having increased jolting pain COMPARISON: None. FINDINGS: The superior spinal stimulator lead ends in the mid T8 vertebral body level. The more caudal spinal stimulator lead ends in the superior endplate of T9. Normal sagittal alignment of the thoraco lumbar spine. Vertebral body heights are maintained. Mild endplate spurring in the mid to lower thoracic spine and upper lumbar spine. Surgical clips in the right upper quadra nt. Procedure Note Carline Underwood MD - 2020 EXAM: XR THORACIC SPINE 2 VWS LOCATION: [facility] DATE/TIME: 01/30/2019 9:09 AM INDICATION: lead check for SCS device - patient fell and having increased jolting pain COMPARISON: None. FINDINGS: The superior spinal stimulator lead ends in the mid T8 vertebral body level. The more caudal spinal stimulator lead ends in the superior endplate of T9. Normal sagittal alignment of the thoraco lumbar spine. Vertebral body heights are maintained. Mild endplate spurring in the mid to lower thoracic spine and upper lumbar spine. Surgical clips in the right upper quadra nt. Marivel Cavazos PA-C [facility] documented in this encounter Visit Diagnoses Diagnosis Chronic pain syndrome documented in this encounter Care Teams Hop Worker Relationship Specialty Start Date End Date Marlee Coles MD PCP - General 02/10/15 05/18/21 [place] [address] [place], [place] [address] Tony Gray MD Referring Physician Orthopedics 10/01/14 Conner Harper MD MD Orthopedics 10/01/14 [facility] [place], [place] [id number] [place] [address] documented as of this encounter
--- OUTSIDE RECORDS SUMMARY | 2022-01-27 10:18 | XMS_ITS | Encounter Summary ---
:1955 Author Organization [facility] Address [address] [facility] [place] [address] Care Team Providers Name Role Phone Tony Gray MD Unavailable Conner Harper MD Unavailable Marlee Coles MD Primary Care Provider [phone] Reason for Visit Reason Comments Medication Refill Encounter Details Date Type Department Care Team Description 04/10/2017 Communication - Health [facility] Hawa Jiang Medic ation Refill [facility] A, RN [address] [facility] [address] [place] [address] Social History Tobacco Use Types Packs/Day Years Used Date Never Assessed Sex Assigned at Date Recorded Not on file documented as of this encounter Plan of Treatment Upcoming Encounters Date Type Specialty Care Team Description 02/17/2022 Office Visit Pain & [place] [address] [place], [place] [address] (Wo rk) documented as of this encounter Visit Diagnoses Not on filedocumented in this encounter Care Teams Channel Manager Relationship Specialty Start Date End Date Marlee Coles MD PCP - General 02/10/15 05/18/21 [place] [address] [address] [facility] [address] [place] [address] Tony Gray MD Referring Physician Orthopedics 10/01/14 Conner Harper MD MD Orthopedics 10/01/14 [facility] [facility], [place] [address] [place] [address] documented as of this encounter
--- OUTSIDE RECORDS SUMMARY | 2022-01-27 10:18 | XMS_ITS | Encounter Summary ---
:1955 Author Organization [place] Address [address] [place] [address] Care Team Providers Name Role Phone Tony Gray MD Unavailable Conner Harper MD Unavailable Marlee Coles MD Primary Care Provider [phone] Reason for Visit Reason Comments Back Pain Knee Pain Encounter Details Date Type Department Care Team Description 11/30/2016 Hospital Encounter [facility] Codie Cavazos [place] pain syndrome; Pain Center Marivel Hernadez PA-C Degeneration of lumbar or lumbosacral in tervertebral disc; [address] [place] Opioid type dependence, continuous (H); [place] [address] Bilateral lumbar radiculopathy; [place], [place] [address] Degeneration of thoracic intervertebral disc [address] [place], [place] [phone] [address] Social History Tobacco Use Types Packs/Day Years Used Date Never Assessed Sex Assigned at Date Recorded Not on file documented as of this encounter Last Filed Vital Signs Vital Sign Reading Time Taken Comments Blood Pressure - - Pulse - - Temperature - - Respiratory Rate - - Oxygen Saturation - - Inhaled Oxygen Concentration - - Weight 99.8 kg (220 lb) 11/30/2016 10:22 AM CDT Height 170.2 cm (5' 7) 11/30/2016 10:22 AM CDT Body Mass Index 34.46 11/30/2016 10:22 AM CDT documented in this encounter Medications [...] encounter Progress Notes Marivel Cavazos PA-C - 11/30/2016 10:15 AM CDT PAIN CENTER PROGRESS NOTE Subjective: Tremaine Plunkett is a 61 y.o. male who presents for evaluation of mid and low back pain. He has thoracic and lumbar degeneration status post work injury. He has had lumbar epidural steroid injection andlumbar radiofrequency which was effective for pain relief. He did not have relief from thoracic epidural steroid injection. Major issues: 1. Chronic pain syndrome 2. Lumbar Disc Degeneration 3. Opioid Dependence With Continuous Use 4. Bilateral lumbar radiculopathy 5. Degeneration of thoracic intervertebral disc Pain location and description: 6/10 constant sharp, awful pain in mid and low back, buttock, and bilateral legs. Function rated 8. Last visit pain rated 8/10. Radiation of pain: Buttocks bilaterally, lower legs. Paresthesias, numbness, weakness: Numbness in buttock. Legs bilaterally, right worse than left. Gait disturbance: None reported, denies recent falls. Denies AD. Exacerbating factors: bending to tie shoes, prolonged sitting, cold temperatures, being without painmedications Alleviating factors: Pain medications, standing or changing positions, synera patch, back brace up to 1.5 hours daily with bending or yardwork activities Associated symptoms: Sleep disturbance due to pain Adverse effects of medications: xerostomia. Some itching 1 hour after taking Opana, Denies constipation, drowsiness, dizziness. Current treatment efficacy: Fair. Opana 15 mg every 12 hours and Vicodin 10/325 mg TID prn. Current treatment compliance: Good; denies self-escalation of doses and no early refill requests. UDS appropriate. Keeps appointment follow-ups with pain center. Does walking and able to do 4-5 blocks daily and stretching exercise in the morning. He has increased back to Opana 15 mg every 12 hours and reports pain levels averaging 5-6/10. This is much more tolerable for him than last month. He denies side effects on increase. He is taking Vicodin 10/325 mg 0730, 1200, and 2200. He reports more numbness in bilateral legs that is aggravated for sitting after 15-20 minutes, goes away with changing positions. Denies any falls or changes in balance, no use of AD. Discuss neuropathic medications and he is open to starting. He failed Gabapentin due to rash and was on Amitriptyline at night in the past up to 40 mg tolerated well. Denies trials of Lyrica, Cymbalta, others in the past. Review of Systems Constitutional: Sleep disturbance due to pain. Generalized itching, denies recent rash. Denies fever, chills, night sweats, lethargy, weight loss, weight gain. Musculoskeletal: Positive for back pain, leg pain. Denies weakness, joint pain, joint swelling, recent falls. Gastrointestional: Denies difficulty swallowing, abdominal pain, change in appetite, constipation, nausea, vomiting, diarrhea, fecal incontinence. Genitourinary: Denies urinary incontinence, dysuria, hematuria, frequency, hesitancy, change in libido/erectile dysfunction. Neurologic: Numbness bilateral buttocks and legs. Denies headaches, confusion, seizure, weakness, changes in balance, changes in speech. Psychiatric: Reports stress. Denies depression, anxiety, memory loss, psychoses, suicidal ideation, substance use/abuse. Objective: Vitals: 11/30/16 1022 BP: 150/82 Pulse: (!) 54 Resp: 16 Weight: 220 lb (99.8 kg) Height: 5' 7 (1.702 m) PainSc: 6 Physical Exam Constitutional- General appearance: Well developed, comfortable, overweight, and appearance reflectsstated age. Able to sit for entire visit today. Presents alone. Psychiatric- Judgment and insight: Normal. Speech: Normal rhythm. Thought process: Normal. No abnormal thoughts reported. Alert & Oriented to person, place, and time. Recent and remote memory: Normal. Mood and affect: Normal. Observed mood: Slightly anxious but appropriate. Respiratory- Breathing is non-labored; normal rhythm and rate. Cardiovascular- Extremities warm and well perfused, no peripheral edema or varicosities. Dermatologic- Exposed skin is clean, dry, and intact to inspection and palpation. Musculoskeletal- Gait and station: Abnormal, antalgia on the right. Gait evaluation demonstrates ambulating independently. Patient does have difficulty rising from a seated position. Opioid [place] Precautions: UDS/Swab- 03/29/16 as expected Consent due Agreement- 07/21/16 Pharmacy- as documented TIMBER MANAGEMENT PROFESSOR- MNPMP reviewed 11/30/16 as expected Count- n/a Psychological evaluation n/a MME- 120 Pharmacogenetic testing n/a Imaging: None new. Assessment: Tremaine Plunkett is a 61 y.o. male seen in clinic today for chronic thoracic and lumbar degeneration,opioid dependence. He is reporting constant bilateral buttock numbness into lower legs bilaterally. He did see Dr. Steinberg with updated imaging which demonstrates central L4-5 disc herniation encroaching on the L5 nerve roots and severe left L4-5 foraminal stenosis which has progressed since 2006 and moderate right L4-5 foraminal stenosis. He is educated we may consider treating with repeat lumbar epidural injection, neuropathic medication such as Lyrica, Cymbalta, amantadine or namenda. He is interested in starting Lyrica today and medication including possible risks and side effects reviewed in det ail along with titration schedule. Also could consider SCS trial but patient not interested in reviewing educational materials today. He did attempt reduction in opioids to 90 MME, reports he was poorly tolerating pain levels, mood changes, sleep and activity reduction. Plan: Continue Opana 15 mg every 12 hours. Continue Vicodin 10/325 mg 3 times a day as needed for breakthrough pain. As your opioid dose remains stable, I will send electronic refills to the pharmacy for 2 subsequent months until your next appointment so you do not have to call our refill line. The fill dates for your medications are: 12/01/16 & 12/31/16 Check with your pharmacy that all prescriptions [...] to occur. Continue Methocarbamol 500 mg at night as needed You may continue over the counter ibuprofen with food up to 2400 mg daily or tylenol up to 3,000 mg daily (remember to calculate each Vicodin tablet has 325 mg of tylenol). Start Lyrica 75 mg at night x 3 days, if tolerating increase to 75 mg twice a day x 3 days, then 75 mg three times a day. Call nurse line with any side effect concerns. Medication handout and review ofpossible side effects given today. Follow-up in 8 weeks Marivel Cavazos PA-C [facility] [address] [facility] [place] [address] documented in this encounter Miscellaneous Notes Addendum Note - Historical Provider - 11/30/2016 11:59 PM CDT Addendum Note by Danielle Mendez CMA at 11/30/2016 11:59 PM Author: Danielle Mendez CMA Service: -- Author Type: Senior Climate Advisor Filed: 05/09/2017 3:46 PM Date of Service: 11/30/2016 11:59 PM Status: Signed Multiple Spindle Screw Machine Operator: Danielle Mendez CMA (Senior Climate Advisor) Encounter addended by: Danielle Mendez CMA on: 05/09/2017 3:46 PM
Actions taken: Charge Capture section accepted documented in this encounter Plan of Treatment Upcoming Encounters Date Type Specialty Care Team Description 02/17/2022 Office Visit Pain & [place] [address] [place], [place] [address] (Wo rk) documented as of this encounter Visit Diagnoses Diagnosis Chronic pain syndrome Degeneration of lumbar or lumbosacral in tervertebral disc Opioid type dependence, continuous (H) Opioid type dependence, continuous Bilateral lumbar radiculopathy Degeneration of thoracic intervertebral disc Degeneration of thoracic or thoracolumba r intervertebral disc documented in this encounter Care Teams Hand Cloth Folder Relationship Specialty Start Date End Date Marlee Coles MD PCP - General 02/10/15 05/18/21 [place] [address] [address] [place], [place] [phone] Tony Gray MD Referring Physician Orthopedics 10/01/14 Conner Harper MD MD Orthopedics 10/01/14 [facility] [place], [place] [address] [place] [address] documented as of this encounter
--- OUTSIDE RECORDS SUMMARY | 2022-01-27 10:18 | XMS_ITS | Encounter Summary ---
:1955 Author Organization [facility] Address [address] [place] [address] Care Team Providers Name Role Phone Tony Gray MD Unavailable Conner Harper MD Unavailable Marlee Coles MD Primary Care Provider [phone] Reason for Visit Reason Comments Back Pain Hand Pain Encounter Details Date Type Department Care Team Description 11/28/[address] [facility] Codie Cavazos [place] pain syndrome; Pain Center Marivel Hernadez PA-C Opioid type dependence, continuous (H); [address] [facility] [address] [place] Degeneration of lumbar or lumbosacral intervertebral disc; [place] [address] Bilateral lumbar radiculopathy [place], [place] [address] [address] [place], [place] [phone] [address] Social History Tobacco Use Types Packs/Day Years Used Date Never Assessed Sex Assigned at Date Recorded Not on file documented as of this encounter Last Filed Vital Signs Vital Sign Reading Time Taken Comments Blood Pressure - - Pulse - - Temperature - - Respiratory Rate - - Oxygen Saturation - - Inhaled Oxygen Concentration - - Weight 99.8 kg (220 lb) 11/28/2017 11:22 AM CDT Height 170.2 cm (5' 7) 11/28/2017 11:22 AM CDT Body Mass Index 34.46 11/28/2017 11:22 AM CDT documented in this encounter Medications [...] encounter Progress Notes Marivel Cavazos PA-C - 11/28/2017 11:00 AM CDT Images from the original note were not included. Progress Notes by Marivel Cavazos PA-C at 11/28/2017 11:00 AM Author: Marivel Cavazos PA-C Service: -- Author Type: Physician Manager Demand Filed: 11/28/2017 9:32 PM Date of Service: 11/28/2017 11:00 AM Status: Signed Blast Hole Driller: Marivel Cavazos PA-C (Physician Manager Demand) PAIN CENTER PROGRESS NOTE Subjective: Tremaine Plunkett [...] Major issues: 1. Chronic pain syndrome 2. Opioid Dependence With Continuous Use 3. Lumbar Disc Degeneration 4. Bilateral lumbar radiculopathy Pain location and description: 9/10 constant hurting pain in mid and low back, buttock, and bilateral legs. Function rated 7. At best, pain rated 7/10 and at worst pain rated 10/10 and on average pain rated 7/10. Radiation of pain: Buttocks bilaterally, lower legs. [...] Symptoms: Pain interferes with sleep, walking, ADLs, sexual health, mood (angry). Adverse effects of medications: Denies constipation, drowsiness, dizziness, nausea/abdominal symptoms, itching/rash. Current treatment efficacy: Poor. Vicodin 10/325 mg 1-2 tabs TID prn. Belbuca 300 mcg every 12 hoursnot helpful. Current treatment [...] more pain, no new injuries or triggers. He states he hasn't felt any relief since starting Belbuca 300 mcg every 12 hours, he reports he hasbeen on it for several weeks now. He is not missing any doses and is administering correctly. He states he does not have any side effects on belbuca since starting it. He is agreeable to a titration upas he is not getting any benefit at current dose. He also wants to proceed with spinal cord stimulator consult with Dr. Loyola. He has reviewed educational materials and thinks this is a good option for him at this time. Goal to have better pain control and allow for reduction in some of his medication doses. He wants to wait on any medical cannabis registration as he worries about how that would work as he will winter again in [place] and isn't sure work comp will approve it even with his service liaison representative. Review of Systems Constitutional: Sleep disturbance due [...] psychoses, suicidal ideation, substance use/abuse. Objective: Vitals: 11/28/17 1122 BP: 120/74 Pulse: 66 Resp: 16 Weight: 220 lb (99.8 kg) Height: 5' 7 (1.702 m) PainSc: 9 Physical Exam Constitutional- General [...] difficulty rising from a seated position. Opioid [place] Precautions: UDS/Swab- 04/12/17 as expected. Consent - 08/24/17 Agreement- 08/24/17 Pharmacy- as documented CURRICULUM DEVELOPMENT MANAGER- MNPMP reviewed 11/28/17 as expected Count- n/a Psychological evaluation n/a MME- 30 + belbuca 18 = 48 Pharmacogenetic testing n/a DIANE 10/26/17 Imaging: None [...] time as he plans to return to [place] and worried about cost. He has not had adequate pain control last 2 months with Vicodin and has failed numerous extended release opioids in the past. Recommend Belbuca increase for pain as 300 mcg every 12 hours is not helping but is not causing side effects. Will increase every 2 weeks until he has pain reduction or hold dose if side effects (reviewed today) occur. Plan: Continue Vicodin 10/325 mg 1 tablet 3 times a day as needed for breakthrough pain. Increase Belbuca 450 mcg every 12 hours 2 weeks, then increase to 600 mcg every 12 hours. Call with any side effect concerns. Continue Methocarbamol 500 mg at bedtime as [...] Follow-up in 4 weeks Marivel Cavazos PA-C [facility] [address] [facility]. [address] [place] [address] documented in this encounter Miscellaneous Notes Addendum Note - Historical Provider - 11/28/2017 11:59 PM CDT Addendum Note by Latoya Davila CMA at 11/28/2017 11:59 PM Author: Latoya Davila CMA Service: -- Author Type: Senior Oracle Database Administrator Filed: 12/13/2017 10:40 AM Date of Service: 11/28/2017 11:59 PM Status: Signed Blast Hole Driller: Latoya Davila CMA (Senior Oracle Database Administrator) Encounter addended by: Latoya Davila CMA on: 12/13/2017 10:40 AM
Actions taken: Actions taken from a BestPractice Advisory, Charge Capture section accepted documented in this encounter Plan of Treatment Upcoming Encounters Date Type Specialty Care Team Description 02/17/2022 Office Visit Pain & [place] [address] [place], [place] [address] (Wo rk) documented as of this encounter Visit Diagnoses Diagnosis Chronic pain syndrome Opioid type dependence, continuous (H) Opioid type dependence, continuous Degeneration of lumbar or lumbosacral in tervertebral disc Bilateral lumbar radiculopathy documented in this encounter Care Teams Braille Coder Relationship Specialty Start Date End Date Marlee Coles MD PCP - General 02/10/15 05/18/21 [facility] [place] [address] [place] [address] Tony Gray MD Referring Physician Orthopedics 10/01/14 Conner Harper MD MD Orthopedics 10/01/14 [address] [facility] [address] [place], [place] [address] documented as of this encounter
--- OUTSIDE RECORDS SUMMARY | 2022-01-27 10:18 | XMS_ITS | Encounter Summary ---
:1955 Author Organization [place] Address [address] [facility] [place] [address] Care Team Providers Name Role Phone Tony Gray MD Unavailable Conner Harper MD Unavailable Marlee Coles MD Primary Care Provider Encounter Details Date Type Department Care Team Description 10/21/2016 Communication - [facility] Provider, [facility] Pain Center Historical lumbar or [address] [facility] lumbosacral [place] [address] intervertebr al disc [address] [place] [address] Social History Tobacco Use Types Packs/Day Years Used Date Never Assessed Sex Assigned at Date Recorded Not on file documented as of this encounter Plan of Treatment Upcoming Encounters Date Type Specialty Care Team Description 02/17/2022 Office Visit Pain & [place] [address] [place], [place] [address] (Wo rk) documented as of this encounter Visit Diagnoses Diagnosis Degeneration of lumbar or lumbosacral in tervertebral disc documented in this encounter Care Teams Physician Industrial Relationship Specialty Start Date End Date Marlee Coles MD PCP - General 02/10/15 05/18/21 [place] [address] [address] [facility] [address] [place], [place] [id number] Tony Gray MD Referring Physician Orthopedics 10/01/14 Conner Harper MD MD Orthopedics 10/01/14 [facility] [facility] [address] [place] [address] documented as of this encounter
--- OUTSIDE RECORDS SUMMARY | 2022-01-27 10:18 | XMS_ITS | Encounter Summary ---
:1955 Author Organization [facility] Address [address] [place] [address] Care Team Providers Name Role Phone Tony Gray MD Unavailable Conner Harper MD Unavailable Marlee Coles MD Primary Care Provider Reason for Visit Reason Comments Back Pain Encounter Details Date Type Department Care Team Description 03/01/2017 Hospital Encounter [facility] Coide Cavazos [place] pain syndrome; Pain Center Marivel Hernadez PA-C Opioid type dependence, continuous (H); [address] [place] Degeneration of thoracic intervertebral disc; [place] [address] Degeneration of lumbar or lumbosacral in tervertebral disc; [place], [place] [address] Bilateral lumbar radiculopathy; [id number] [place], [place] Rash, drug [phone] [id number] Social History Tobacco Use Types Packs/Day Years Used Date Never Assessed Sex Assigned at Date Recorded Not on file documented as of this encounter Last Filed Vital Signs Vital Sign Reading Time Taken Comments Blood Pressure - - Pulse - - Temperature - - Respiratory Rate - - Oxygen Saturation - - Inhaled Oxygen Concentration - - Weight 99.8 kg (220 lb) 03/01/2017 10:03 AM CDT Height 170.2 cm (5' 7) 03/01/2017 10:03 AM CDT Body Mass Index 34.46 03/01/2017 10:03 AM CDT documented in this encounter Medications [...] encounter Progress Notes Marivel Cavazos PA-C - 03/01/2017 9:55 AM CDT PAIN CENTER PROGRESS NOTE Subjective: [...] 2. Opioid Dependence With Continuous Use 3. Degeneration of thoracic intervertebral disc 4. Lumbar Disc Degeneration 5. Bilateral lumbar radiculopathy 6. Rash, drug Pain location and description: 7/10 constant sharp, awful, aching pain in mid and low back, buttock,and bilateral legs. Function rated 8. Last visit pain rated 5/10. Radiation of pain: Buttocks [...] due to pain Adverse effects of medications: Rash, itching (see below). Denies constipation, drowsiness, dizziness. Current treatment efficacy: Poor. Nucynta ER 150 mg every 12 hours and Vicodin 10/325 mg TID prn. Current treatment compliance: Good; denies self-escalation of doses and no early refill requests. UDS appropriate. Keeps appointment follow-ups with pain center. Does walking and able to do 4-5 blocks daily and stretching exercise in the morning. He discontinued Opana due to discontinuation from market. He was started on Nucynta 150 mg every 12 hours and reports terrible rash. He states it started 2- 3 days after starting the medication and thishas been the only change in the past month, otherwise same meds, same soaps, diet, etc. He reports red, raised lumps on neck, arms, legs that itch and then blister and drain. He states he has tried neosporin and keeping skin open to heal. He reports worst area is posterior left calf as it is open and draining clear liquid. He states rash is very itchy, tried benadryl which didn't make a difference. He denies any fevers, chills, malaise, nausea, vomiting, muscle aches, headaches. He states his pain is bad too and seems like the pain level went from tolerable 4-5/10 to 6-7/10 with nucynta. He states he is continuing Vicodin as prescribed and he is tolerating without side effects. He had asked also about medical cannabis for pain and was not registered but educated last visit. Hewas to have a diagnostic assessment with psychotherapist here prior to a registration. He has not scheduled that. He states he is wintering in [place] with house already rented but he is interested in trying when he returns in the spring. Review of Systems Constitutional: Sleep disturbance due to pain. Generalized itching, red rash. Denies fever, chills, night sweats, lethargy, [...] psychoses, suicidal ideation, substance use/abuse. Objective: Vitals: 03/01/17 1003 BP: 170/90 Pulse: 60 Resp: 16 Weight: 220 lb (99.8 kg) Height: 5' 7 (1.702 m) PainSc: 7 Physical Exam Constitutional- General appearance: Well developed, uncomfortable, overweight, and appearance reflects stated age. Able to sit for entire visit [...] peripheral edema or varicosities. Dermatologic- Exposed skin reveals bilateral upper extremity erythematous, pustular rash, left posterior calf demonstrates scale and open area approximately 5 cm in diameter, oozing clear liquid down the leg and he has a paper towel in his shoe to absorb the liquid. No facial rash. Musculoskeletal- Gait and station: Abnormal, antalgia on the right. Gait evaluation demonstrates ambulating independently. Patient does have difficulty rising from a seated position. Opioid [place] Precautions: UDS/Swab- 03/29/16 as expected Consent due Agreement- 07/21/16 Pharmacy- as documented STORAGE MANAGER- MNPMP reviewed 03/01/17 as expected Count- n/a Psychological evaluation n/a [...] or namenda. Also could consider SCS trial but patient not interested in reviewing educational materials today. He did attempt reduction in opioids to 90 MME, reports hewas poorly tolerating pain levels, mood changes, sleep and activity reduction. He is interested in medical cannabis trial in the spring with goal of reducing opioids. He is given educational materials today to read and not registering yet. He is recommended to discontinue Nucynta ER due to severe rashand itching from it. He is educated on how to care for skin and he is also denying any systemic symptoms of infection. He is advised it best to discontinue med for 1-2 weeks before trialing another medication to make sure his allergic reaction subsides. He is concerned about this for pain control and wants to try another ER medication. Discuss Hysingla as it is extended release hydrocodone and he is tolerating Vicodin well. He is educated on possible risks and benefits of this medication. Plan: Discontinue Nucynta (tapentadol) due to rash. This may take several days to fully leave the body. Please monitor you rash and continue care by keeping it clean/dry, using bacitracin as needed, and alsotake Vistaril 25-50 mg every 6 hours as needed for itch (may make you drowsy, use caution with driving!). If you have any symptoms of fever, nausea, chills, fatigue let me know. If rash does not start improving after a week, let me know. Continue Vicodin 10/325 mg 3 times a day as needed for breakthrough pain. Start Hysingla (extended release hydrocodone) 20 mg once daily, take at the same time every day. Continue Methocarbamol 500 mg at night as [...] eat fresh fruits/vegetables, fiber in your diet. Will consider medical cannabis trial for pain in the spring. Follow-up in 4 weeks Marivel Cavazos PA-C [facility] [address] [facility] [place] [address] documented in this encounter Plan of Treatment Upcoming Encounters Date Type Specialty Care Team Description 02/17/2022 Office Visit Pain & [place] [address] [facility] [address] [place], [place] [address] (Wo rk) documented as of this encounter Visit Diagnoses Diagnosis Chronic pain syndrome Opioid type dependence, continuous (H) Opioid type dependence, continuous Degeneration of thoracic intervertebral disc Degeneration of thoracic or thoracolumba r intervertebral disc Degeneration of lumbar or lumbosacral in tervertebral disc Bilateral lumbar radiculopathy Rash, drug Dermatitis due to drugs and medicines ta daniel internally documented in this encounter Care Teams Park Aide Relationship Specialty Start Date End Date Marlee Coles MD PCP - General 02/10/15 05/18/21 [place] [address] [address] [id number] Tony Gray MD Referring Physician Orthopedics 10/01/14 Conner Harper MD MD Orthopedics 10/01/[address] [place], [place] [id number] documented as of this encounter
--- OUTSIDE RECORDS SUMMARY | 2022-01-27 10:18 | XMS_ITS | Encounter Summary ---
:1955 Author Organization [facility] Address [address] [place] [address] Care Team Providers Name Role Phone Tony Gray MD Unavailable Conner Harper MD Unavailable Marlee Coles MD Primary Care Provider [phone] Reason for Visit Reason Comments Back Pain Encounter Details Date Type Department Care Team Description 06/08/2017 Hospital Encounter [facility] Codie Cavazos [place] pain syndrome; Pain Center Marivel Hernadez PA-C Opioid type dependence, continuous (H); [address] [place] Degeneration of thoracic intervertebral disc; [place] [address] Degeneration of lumbar or lumbosacral in tervertebral disc; [place], [place] [address] Bilateral lumbar radiculopathy [id number] [place], [place] [phone] [address] Social History Tobacco Use Types Packs/Day Years Used Date Never Assessed Sex Assigned at Date Recorded Not on file documented as of this encounter Last Filed Vital Signs Vital Sign Reading Time Taken Comments Blood Pressure - - Pulse - - Temperature - - Respiratory Rate - - Oxygen Saturation - - Inhaled Oxygen Concentration - - Weight 99.8 kg (220 lb) 06/08/2017 11:38 AM SHELLFISH CHECKER Height 170.2 cm (5' 7) 06/08/2017 11:38 AM SHELLFISH CHECKER Body Mass Index 34.46 06/08/2017 11:38 AM SHELLFISH CHECKER documented in this encounter Medications at Time [...] encounter Progress Notes Marivel Cavazos PA-C - 06/08/2017 11:02 AM CST PAIN CENTER PROGRESS NOTE Subjective: [...] Lumbar Disc Degeneration 5. Bilateral lumbar radiculopathy Pain location and description: 7/10 constant awful, sharp, aching pain in mid and low back, buttock,and bilateral legs. Function rated 8. Radiation of [...] due to pain Adverse effects of medications: Denies constipation, drowsiness, dizziness. Current treatment efficacy: Fair. Hysingla 20 mg daily and Vicodin 10/325 mg TID prn. Current treatment compliance: Good; denies self-escalation of doses and no early refill requests. UDS appropriate. Keeps appointment follow-ups with pain center. Does walking and able to do 4-5 blocks daily and stretching exercise in the morning. He discontinued Opana due to discontinuation from market. He discontinued Nucynta ER due to rash. [place] he continues Hysingla 20 mg daily and Vicodin 10/325 mg TID prn which doesn't control pain aswell pain ratings have been 5-7 out of 10 instead of 3-5/10. He reports he just returned last night from [place], plans to spend [place] in [place] then return to [place]. He states he rode in a car for the past 2 days and that is increasing his pain. He reports low back tailbone pain that is difficult to get rid of. Doesn't feel the pain medications are working as well as oxymorphone. Denies any side effects. No rash since last seen. He denies any new pain symptoms since last seen. Denies other health changes or medication changes or ED visits. Sleep difficulty initiating sleep, wondering if from robaxin + tylenol at night. He states he only takes Robaxin 500 mg at night, hasn't taken during the day but doesn't make him drowsy. Denies other sleep aides such as melatonin or Tylenol PM. He denies any sleep apnea. Review of Systems Constitutional: Sleep disturbance due to pain wonders also if medication keeping him awake. Denies fever, chills, night sweats, lethargy, weight [...] psychoses, suicidal ideation, substance use/abuse. Objective: Vitals: 06/08/17 1138 BP: 144/77 Pulse: 75 Resp: 16 Weight: 220 lb (99.8 kg) [...] have difficulty rising from a seated position. Pain to palpation lower lumbar spine and coccyx. No pain to palpation at SI Joints bilaterally. Opioid [place] Precautions: UDS/Swab- reviewed from 04/12/17 as expected. Consent due Agreement- 07/21/16 Pharmacy- as documented SETTLEMENT PROCESSOR- MNPMP reviewed 06/08/17 as expected Count- n/a Psychological evaluation n/a MME- 120 Pharmacogenetic testing n/a DIANE Score: 58 06/08/17 Imaging: None new. Assessment: Tremaine Plunkett is a 61 y.o. male seen in clinic today for chronic thoracic and lumbar degeneration,opioid dependence. He is reporting constant bilateral buttock numbness into lower legs bilaterally. Coccydynia secondary to sitting in a car traveling from [place] to [place]. He did see Dr. Steinberg with updated [...] with goal of reducing opioids. He is tolerating Hysingla and Vicodin for pain, does not think it worked as well as Nucynta (rash) or Opana ER. He is interested in increasing Hysingla to 30 mg daily to see if more assistive in pain relief. Discuss possible side effects on increase. He is reportingmore difficulty sleeping at night; he thinks Robaxin is keeping him awake which we discuss would be a paradoxical response but he will try taking it earlier in the day to see if any change. Otherwise discuss trial of melatonin at night. We review travel guidelines and keeping opioids safe. Plan: Continue Vicodin 10/325 mg 3 times a day as needed for breakthrough pain. Increase Hysingla (extended release hydrocodone) 30 mg once daily to assist with increased pain As your opioid dose remains stable, I will send electronic refills to the pharmacy for 2 subsequent months until your next appointment so you do not have to call our refill line. The fill dates for your medications are: 06/09/17 & to fill 07/07/17 to start on 07/09/17 (given extra time for your son to mail to you Bulmaro.) Check with your pharmacy that all prescriptions [...] an explanation if this were to occur. Discussed for tailbone pain you may consider caudal ERIK injection with Dr. Loyola when you return from travel if it perists. Use a donut pillow while sitting to lessen pressure on the tailbone. Continue Methocarbamol 500 mg; discussed taking during the day instead of at night to see if keepingyou awake. This is not an expected side effect as usually it causes drowsiness. If this doesn't change your sleep habits, also eliminate caffeine after noon and also you may try melatonin 3-5 mg at night. Patient was previously on Amitriptyline but had morning grogginess and dry mouth as side effects. You may continue over the counter ibuprofen [...] for pain in the spring. Follow-up in 8 weeks Marivel Cavazos PA-C [facility] [address] [facility] [place] [address] LFISH CHECKER documented in this encounter Plan of Treatment Upcoming Encounters Date Type Specialty Care Team Description 02/17/2022 Office Visit Pain & [place] [address] [place], [place] [address] (Wo rk) documented as of this encounter Visit Diagnoses Diagnosis Chronic pain syndrome Opioid type dependence, continuous (H) Opioid type dependence, continuous Degeneration of thoracic intervertebral disc Degeneration of thoracic or thoracolumba r intervertebral disc Degeneration of lumbar or lumbosacral in tervertebral disc Bilateral lumbar radiculopathy documented in this encounter Care Teams Sales Support Representative Relationship Specialty Start Date End Date Marlee Coles MD PCP - General 02/10/15 05/18/21 [place] [address] [address] [place], [place] [address] Tony Gray MD Referring Physician Orthopedics 10/01/14 Conner Harper MD MD Orthopedics 10/01/[address] [place] [address] documented as of this encounter
--- OUTSIDE RECORDS SUMMARY | 2022-01-27 10:18 | XMS_ITS | Encounter Summary ---
:1955 Author Organization [facility] Address [address] [facility] [place] [address] Care Team Providers Name Role Phone Tony Gray MD Unavailable Conner Harper MD Unavailable Marlee Coles MD Primary Care Provider Encounter Details Date Type Department Care Team Description 03/03/2017 Communication - [facility] ZHOU Jessica, RN [address] [place] [phone] Social History Tobacco Use Types Packs/Day Years Used Date Never Assessed Sex Assigned at Date Recorded Not on file documented as of this encounter Plan of Treatment Upcoming Encounters Date Type Specialty Care Team Description 02/17/2022 Office Visit Pain & [place] [address] [place], [place] [address] (Wo rk) documented as of this encounter Visit Diagnoses Not on filedocumented in this encounter Care Teams Nub Card Tender Relationship Specialty Start Date End Date Marlee Coles MD PCP - General 02/10/15 05/18/21 [place] [address] [address] [facility] [address] [place] [address] Tony Gray MD Referring Physician Orthopedics 10/01/14 Conner Harper MD MD Orthopedics 10/01/14 [facility] [place] [address] documented as of this encounter
--- OUTSIDE RECORDS SUMMARY | 2022-01-27 10:18 | XMS_ITS | Encounter Summary ---
:1955 Author Organization [facility] Address [address] [facility] [place] [address] Care Team Providers Name Role Phone Tony Gray MD Unavailable Conner Harper MD Unavailable Marlee Coles MD Primary Care Provider [phone] Encounter Details Date Type Department Care Team Description 04/19/2017 Records - [facility] CONVERSION Provider, Historsulma l Social History Tobacco Use Types Packs/Day Years Used Date Never Assessed Sex Assigned at Date Recorded Not on file documented as of this encounter Plan of Treatment Upcoming Encounters Date Type Specialty Care Team Description 02/17/2022 Office Visit Pain & [place] [address] [place], [place] [address] (Wo rk) documented as of this encounter Visit Diagnoses Not on filedocumented in this encounter Care Teams Apprentice Stylist Relationship Specialty Start Date End Date Marlee Coles MD PCP - General 02/10/15 05/18/21 [place] [address] [address] [address] Tony Gray MD Referring Physician Orthopedics 10/01/14 Conner Harper MD MD Orthopedics 10/01/14 [address] [facility] [address] [place] [address] documented as of this encounter
--- OUTSIDE RECORDS SUMMARY | 2022-01-27 10:18 | XMS_ITS | Encounter Summary ---
:1955 Author Organization [facility] Address [address] [facility] [place] [address] Care Team Providers Name Role Phone Tony Gray MD Unavailable Conner Harper MD Unavailable Marlee Coles MD Primary Care Provider Marivel Cavazos PA-C Unavailable Zhang Masterson Primary Care Provider Encounter Details Date Type Department Care Team Description 05/04/2017 Records - [facility] CONVERSION Scan, Non-Provider Social History Tobacco Use Types Packs/Day Years Used Date Never Assessed Sex Assigned at Date Recorded Not on file documented as of this encounter Plan of Treatment Upcoming Encounters Date Type Specialty Care Team Description 02/17/2022 Office Visit Pain & [place] [address] [place], [place] [address] (Wo rk) documented as of this encounter Visit Diagnoses Not on filedocumented in this encounter Care Teams Solution Design Engineer Relationship Specialty Start Date End Date Marlee Coles PCP - General 02/10/15 MD [facility] [place] [address] [address] [place] [address] Zhang Masterson PCP - General Family Medicine 05/19/21 [address] [facility] [place] [address] Tony Gray MD Referring Physician Orthopedics 10/01/14 Conner Harper MD MD Orthopedics 10/01/[address] [place], [place] [address] Marivel Cavazos, Assigned Surgical Provider 1 [address] [facility] [address] [place], [place] [id number] documented as of this encounter
--- OUTSIDE RECORDS SUMMARY | 2022-01-27 10:18 | XMS_ITS | Encounter Summary ---
:1955 Author Organization [facility] Address [address] [facility] [place] [address] Care Team Providers Name Role Phone Tony Gray MD Unavailable Conner Harper MD Unavailable Marlee Coles MD Primary Care Provider Encounter Details Date Type Department Care Team Description 02/02/2017 Communication - [facility] PAIN C[facility] ZHOU Jessica, RN [address] [place] [phone] Social History Tobacco Use Types Packs/Day Years Used Date Never Assessed Sex Assigned at Date Recorded Not on file documented as of this encounter Plan of Treatment Upcoming Encounters Date Type Specialty Care Team Description 02/17/2022 Office Visit Pain & [place] [address] [place], [place] [address] (Wo rk) documented as of this encounter Visit Diagnoses Not on filedocumented in this encounter Care Teams Cell Cleaner Relationship Specialty Start Date End Date Marlee Coles MD PCP - General 02/10/15 05/18/21 [place] [address] [address] [facility] [address] [place] [address] Tony Gray MD Referring Physician Orthopedics 10/01/14 Conner Harper MD MD Orthopedics 10/01/14 [facility] [place] [address] documented as of this encounter
--- OUTSIDE RECORDS SUMMARY | 2022-01-27 10:18 | XMS_ITS | Encounter Summary ---
:1955 Author Organization [place] Address [address] [place] [address] Care Team Providers Name Role Phone Tony Gray MD Unavailable Conner Harper MD Unavailable Marlee Coles MD Primary Care Provider [phone] Reason for Visit Reason Comments Back Pain Encounter Details Date Type Department Care Team Description 04/12/[address] [facility] Codie Cavazos [place] pain syndrome; Pain Center Marivel Hernadez PA-C Opioid type dependence, continuous (H); [address] Degeneration of thoracic intervertebral disc; [place] [address] Degeneration of lumbar or lumbosacral in tervertebral disc [place], [place] [address] [address] [place], [place] [phone] [address] Social History Tobacco Use Types Packs/Day Years Used Date Never Assessed Sex Assigned at Date Recorded Not on file documented as of this encounter Last Filed Vital Signs Vital Sign Reading Time Taken Comments Blood Pressure - - Pulse - - Temperature - - Respiratory Rate - - Oxygen Saturation - - Inhaled Oxygen Concentration - - Weight 99.8 kg (220 lb) 04/12/2017 10:49 AM CDT Height 170.2 cm (5' 7) 04/12/2017 10:49 AM CDT Body Mass Index 34.46 04/12/2017 10:49 AM CDT documented in this encounter Medications [...] encounter Progress Notes Marivel Cavazos PA-C - 04/12/2017 10:40 AM CDT PAIN CENTER PROGRESS NOTE [...] thoracic intervertebral disc 4. Lumbar Disc Degeneration Pain location and description: 6/10 constant sharp, aching pain in mid and low [...] Nucynta ER due to rash. Hestates he still has remaining nucynta at home and also an old morphine prescription. He did have to present to ED for his rash as it was worsening and this was 03/08/17 and was given medrol dose pack and topical ointment with improvement. He was to start Hysingla as he was tolerating Vicodin for pain and he didn't start until rash was improving. He reports the rash has resolved and healing from it. He states it kept getting worse after the Nucynta was discontinued and after a week tapering off it hestill had symptoms so he questions if the medication was the source of it. He was trying to trace back to any changes in diet or medications and states he has narrowed the rash down to a cold medication OTC or mushrooms which he ate the day he started Nucynta. He states he did start the Hysingla and Vicodin and didn't control pain as well pain ratings have been 5-7 out of 10 instead of 3-5/10. However, he is leaving this weekend for [place] and doesn't want to make any medication changes while he isaway. He is hoping the warmer weather will make pain more tolerable. He reports he will return in May for follow-up and his son will mail his medications from his pharmacy to him. He will return in early August. He denies any new pain symptoms since last seen. Denies other health changes or medication changes or ED visits. Review of Systems Constitutional: Sleep disturbance due [...] psychoses, suicidal ideation, substance use/abuse. Objective: Vitals: 04/12/17 1049 BP: 149/86 Pulse: (!) 58 Resp: 16 Weight: 220 lb (99.8 kg) [...] difficulty rising from a seated position. Opioid [place] Precautions: UDS/Swab- collected 04/12/17, results pending. Consent due Agreement- 07/21/16 Pharmacy- as documented [facility]ER- MNPMP reviewed 04/12/17 as expected Count- n/a Psychological evaluation n/a [...] think it worked as well as Nucynta but unclear the source of his rash and no changes made today as he is traveling out of state for next 2 months. We review travel guidelines and keeping opioids safe. Plan: Continue Vicodin 10/325 mg 3 times a day as needed for breakthrough pain. Continue Hysingla (extended release hydrocodone) 20 mg once daily, take at the same time every day. As your opioid dose remains stable, I will send electronic refills to the pharmacy for 2 subsequent months until your next appointment so you do not have to call our refill line. The fill dates for your medications are: 04/12/17 & 05/09/17 (to start on or after 05/12/17 but given extra time as pharmacy will mail ksenia aguilar and then son needs to mail to you in [place].) Check with your pharmacy that all prescriptions [...] Methocarbamol 500 mg at night as needed - refills sent You may continue over the counter [...] the spring. Follow-up in 8 weeks [facility]: UDT/SWAB collected today results are pending. UDT/SWAB: Patient required a random Urine Drug Testing, due to the need to comply with [facility] PolicyGuidelines and CDC Guideline for the use of any controlled substances. This is to ensure that patient is compliant with treatment, and monitor for risks such as diversion, abuse, or any other aberrant behaviors. Patient is either being considered for or taking a controlled substance. Unexpected findings will be discussed and treatment decision may be adjusted. Testing is being implemented across the board randomly w/o bias related to age, race, gender, socioeconomic status or hoahaoism affiliation. Follow these instructions for safe medication disposal at home (for remaining Nucynta and morphine): #1. Keep the medication in the container it came in. Scratch off the patient's name or black it out with a marker. Leave the rest of the label on the vial and make sure the cap is on. #2. Prevent others from taking it. For pills or capsules add a small amount of vinegar or coffee grounds to them. For liquid medications add enough table salt or flour to make it taste bad. For blisterpacks wrap in duct tape. #3. Seal and hide. Tape the medication container shut using duct tape, and place inside a plastic container like an empty yogurt or butter tub to ensure that the medication cannot be seen. Make sure nofood is left over in the container. #4. Throw away the container in your garbage can. For questions, go to [email or web address] or call your [facility]'s Rethink Books program. Marivel Cavazos PA-C [facility] [address] [place] [address]. [address] [place] [address] documented in this encounter Plan of Treatment Upcoming Encounters Date Type Specialty Care Team Description 02/17/2022 Office Visit Pain & [place] [address] [place], [place] [address] (Wo rk) documented as of this encounter Visit Diagnoses Diagnosis Chronic pain syndrome Opioid type dependence, continuous (H) Opioid type dependence, continuous Degeneration of thoracic intervertebral disc Degeneration of thoracic or thoracolumba r intervertebral disc Degeneration of lumbar or lumbosacral in tervertebral disc documented in this encounter Care Teams Mobile Device Engineer Relationship Specialty Start Date End Date Marlee Coles MD PCP - General 02/10/15 05/18/21 [facility] [place] [address] [address] [address] Tony Gray MD Referring Physician Orthopedics 10/01/14 Conner Harper MD MD Orthopedics 10/01/14 [address] [facility] [address] [place] [address] documented as of this encounter
--- OUTSIDE RECORDS SUMMARY | 2022-01-27 10:18 | XMS_ITS | Encounter Summary ---
:1955 Author Organization [place] Address [address] [facility] [place] [address] Care Team Providers Name Role Phone Tony Gray MD Unavailable Conner Harper MD Unavailable Marlee Coles MD Primary Care Provider Marivel Cavazos PA-C Unavailable Zhang Masterson Primary Care Provider Encounter Details Date Type Department Care Team Description 01/11/2017 Records - [facility] CONVERSION Scan, Non-Provider Social History Tobacco Use Types Packs/Day Years Used Date Never Assessed Sex Assigned at Date Recorded Not on file documented as of this encounter Plan of Treatment Upcoming Encounters Date Type Specialty Care Team Description 02/17/2022 Office Visit Pain & [place] [address] [place], [place] [address] (Wo rk) documented as of this encounter Visit Diagnoses Not on filedocumented in this encounter Care Teams Order Packer Relationship Specialty Start Date End Date Marlee Coles PCP - General 02/10/15 MD Kellen [facility] [place] [address] [place] [address] Zhang Masterson PCP - General Family Medicine 05/19/21 [address] [facility] [place] [address] Tony Gray MD Referring Physician Orthopedics 10/01/14 Conner Harper MD MD Orthopedics 10/01/[address] [place], [place] [address] Marivel Cavazos, Assigned Surgical Provider 1 [address] [facility] [address] [place], [place] [id number] documented as of this encounter
--- OUTSIDE RECORDS SUMMARY | 2022-01-27 10:18 | XMS_ITS | Encounter Summary ---
:1955 Author Organization [place] Address [address] [place] [address] Care Team Providers Name Role Phone Tony Gray MD Unavailable Conner Harper MD Unavailable Marlee Coles MD Primary Care Provider [phone] Reason for Visit Reason Comments Back Pain Encounter Details Date Type Department Care Team Description 08/24/2017 Hospital Encounter [facility] Codie Cavazos [place] pain syndrome; Pain Center Marivel Hernadez PA-C Degeneration of lumbar or lumbosacral in tervertebral disc; [facility] [address] [place] Opioid type dependence, continuous (H) [place] [address] [facility] [address] [address] [place], [place] [phone] [facility] Social History Tobacco Use Types Packs/Day Years Used Date Never Assessed Sex Assigned at Date Recorded Not on file documented as of this encounter Last Filed Vital Signs Vital Sign Reading Time Taken Comments Blood Pressure - - Pulse - - Temperature - - Respiratory Rate - - Oxygen Saturation - - Inhaled Oxygen Concentration - - Weight 99.8 kg (220 lb) 08/24/2017 11:01 AM BUTCHER MEAT Height 170.2 cm (5' 7) 08/24/2017 11:01 AM BUTCHER MEAT Body Mass Index 34.46 08/24/2017 11:01 AM BUTCHER MEAT documented in this encounter Medications at Time [...] encounter Progress Notes Marivel Cavazos PA-C - 08/24/2017 10:46 AM CST PAIN CENTER PROGRESS NOTE Subjective: [...] Degeneration 3. Opioid Dependence With Continuous Use Pain location and description: 8/10 constant sharp pain in mid and low back, buttock, and bilateral legs. Function rated 8. At best, pain rated 5/10 and at worst pain rated 10/10 and [...] Associated symptoms: Sleep disturbance due to pain Numbness in bilateral hands and feet. Denies weakness, bowel or bladder incontinence, fever/chills, unexplained weight loss. Functional Symptoms: Pain interferes with sleep, walking, ADLs, relationships/social, sexual health. Adverse effects of medications: Denies constipation, drowsiness, [...] Opana due to discontinuation from market. He states since that time pain control hasbeen bad. He discontinued Nucynta ER due to rash. He states he continues Hysingla 30 mg daily and Vicodin 10/325 mg TID prn which doesn't control pain as well pain ratings have been 5-7 out of 10 instead of 3-5/10. Increase in Hysingla was not helpful and he reports he has to take a Vicodin tablet with it in the morning to get any relief. He states last week he took Vicodin 2 tablets instead of 1 at noon and made a big difference took pain level down but at night he then only took 1 so he would not exceed the daily dose. Pain reduced byover 50%. He was also taking Ibuprofen TID. He is doing more activity as warmer in [place] and walking dog more. He states his feet are more numb with sitting any period of time. Will return to [place] 10/17 and then still interested in medical cannabis program. Discuss that if he continues to reside in [place] in the winter months he will also need to arrange for that in a different state if helpful as the [place] cannabis should not be taken in airlines or cross state lines. Tried massage while in [place] x2 and didn't make a difference for pain relief. This was done by a chiropractor but no adjustment was done. He also tried topical cream in his lower back which didn't work. He denies any new pain symptoms since last seen. Denies other health changes or medication changes or ED visits. Denies new diagnostic testing or any anticoagulant medications. Review of Systems Constitutional: Sleep disturbance [...] psychoses, suicidal ideation, substance use/abuse. Objective: Vitals: 08/24/17 1101 BP: 159/79 Pulse: 68 Resp: 16 Weight: 220 lb (99.8 kg) Height: 5' 7 (1.702 m) PainSc: 8 Physical Exam Constitutional- General appearance: Well developed, uncomfortable, overweight, and appearance reflects stated age. Presents alone. Standing for part of the visit as unable to sit for prolonged periods. Psychiatric- Judgment and insight: Normal. Speech: Normal [...] difficulty rising from a seated position. Opioid [place] Precautions: UDS/Swab- 04/12/17 as expected. 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 Assessment: Tremaine Plunkett is a 61 y.o. male seen in clinic today for chronic thoracic and lumbar degeneration,opioid dependence. He is reporting constant bilateral buttock numbness into lower legs and feet bilaterally. 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 He did see Dr. Sepulveda updated imaging which demonstrates central L4-5 disc [...] interested in reviewing educational materials today. He is interested in medical cannabis trial in the spring with goal of reducingopioids. He is tolerating Hysingla and Vicodin for pain, does not think it worked as well as NucyntaER (rash) or Opana ER. He is interested in discontinuing Hysingla as he does not find it helpful forpain control and taking Vicodin only for pain control, keeping daily MME the same. Plan: Continue Vicodin 10/325 mg 1-2 tablets 3 times a day as needed for breakthrough pain. Discontinue Hysingla. As your opioid dose remains stable, I will send electronic refills to the pharmacy for 2 subsequent months until your next appointment so you do not have to call our refill line. The fill dates for your medications are: Sent to fill now and 09/23/17 Check with your pharmacy that all prescriptions [...] at bedtime as needed - refill sent You may continue over [...] medical cannabis trial for pain in the spring when you return in October Opioid agreement and consent renewed today. Follow-up in 8 weeks Marivel Cavazos PA-C [facility] [address] [facility] [place] [address] [place]AT documented in this encounter Plan of Treatment Upcoming Encounters Date Type Specialty Care Team Description 02/17/2022 Office Visit Pain & [place] [address] [facility] [place] [address] (Wo rk) documented as of this encounter Visit Diagnoses Diagnosis Chronic pain syndrome Degeneration of lumbar or lumbosacral in tervertebral disc Opioid type dependence, continuous (H) Opioid type dependence, continuous documented in this encounter Care Teams [facility] Office Supervisor Relationship Specialty Start Date End Date Marlee Coles MD PCP - General 02/10/15 05/18/21 [place] [address] [address] [address] Tony Gray MD Referring Physician Orthopedics 10/01/14 Conner Harper MD MD Orthopedics 10/01/[address] [place], [place] [address] documented as of this encounter
--- OUTSIDE RECORDS SUMMARY | 2022-01-27 10:18 | XMS_ITS | Encounter Summary ---
:1955 Author Organization [place] Address [address] [place] [address] Care Team Providers Name Role Phone Tony Gray MD Unavailable Conner Harper MD Unavailable Marlee Coles MD Primary Care Provider [phone] Reason for Visit Reason Comments Back Pain Encounter Details Date Type Department Care Team Description 10/26/2017 Hospital Encounter [facility] Codie Cavazos [place] pain syndrome; Pain Center Marivel Hernadez PA-C Degeneration of lumbar or lumbosacral in tervertebral disc; [address] [place] Bilateral linda mbar radiculopathy; [place] [address] Opioid type dependence, continuous (H); [place], [place] [address] Degeneration of thoracic intervertebral disc [address] [place], [place] [phone] [facility] Social History Tobacco Use Types Packs/Day Years Used Date Never Assessed Sex Assigned at Date Recorded Not on file documented as of this encounter Last Filed Vital Signs Vital Sign Reading Time Taken Comments Blood Pressure - - Pulse - - Temperature - - Respiratory Rate - - Oxygen Saturation - - Inhaled Oxygen Concentration - - Weight 99.8 kg (220 lb) 10/26/2017 10:59 AM CDT Height 170.2 cm (5' 7) 10/26/2017 10:59 AM CDT Body Mass Index 34.46 10/26/2017 10:59 AM CDT documented in this encounter Medications [...] encounter Progress Notes Marivel Cavazos PA-C - 10/26/2017 10:45 AM CDT PAIN CENTER PROGRESS NOTE Subjective: [...] radiculopathy 4. Opioid Dependence With Continuous Use 5. Degeneration of thoracic intervertebral disc Pain location and description: 8/10 constant hurting pain in mid and low back, buttock, and bilateral legs. Function rated 3. At best, pain rated 5/10 and at worst pain rated 10/10 and on average pain rated 6/10. Radiation of pain: Buttocks bilaterally, lower legs. Paresthesias, numbness, weakness: Numbness and weakness in bilateral legs, hands, feet Gait disturbance: None reported, denies recent falls. Denies AD. Exacerbating factors: bending to tie shoes, prolonged sitting, walking, cold temperatures, being without pain medications Alleviating factors: Pain medications, standing or changing positions, synera patch, back brace up to 1.5 hours daily with bending or yardwork activities Associated symptoms: Sleep disturbance due to pain Numbness and weakness in bilateral hands and feet. Denies bowel or bladder incontinence, fever/chills, unexplained weight loss. Functional Symptoms: Pain interferes with sleep, walking, ADLs, mood (angry, frustrated). Adverse effects of medications: Denies constipation, drowsiness, dizziness. Current treatment efficacy: Fair. Vicodin 10/325 mg 1-2 tabs TID prn. Current treatment compliance: Good; denies [...] medications, or any ED/urgent care visits. States right hand pain past couple days difficult to bend without new injury. States pain down back of right leg and right knee. Also has some referred pain in his left chest from the thoracic spine more than usual. He has been told by Dr. Steinberg this is coming from his thoracic spine. He has had cardiac evaluation in the past ED and negative. Last week pain symptoms have worsened without injury or change in activity. Did ride home from [place] as he gets up every 2 hours andhe states he doesn't feel his legs due to numbness. He states he slides out of the truck and he hangs on to door and takes 2-3 minutes before he can walk. He was advised by Dr. Steinberg no further surgeries. Discuss neurosurgical second opinion for surgical consult. He states he has returned to [place] for the summer, but did buy a home in [place] for the [place]. Will work with work comp carrier to find a pain provider when he returns there. He was considering medical cannabis, but knows he cannot cross state lines with this and would have to be registered in [place] as well. He isn't sure if he is ready to try as he has spoken to people with back pain that it hasn't helped. He is wondering what other medication options he has as he is not having good pain control with Vicodin, MME 60. He has been on methadone, oxycodone, fentanyl, Morphine ER, Hysingla, opana ER, and Nucynta ER. We discuss buprenorphine products for pain; Butrans and Belbuca. As he has had rashes in the past, preference for buccal film due to risk of skin rash on the patch. We also review other treatmentoptions including the SCS trial. He is interested in more information, but also concerned that this wouldn't be able to cover his thoracic pain. Review of Systems Constitutional: Sleep disturbance due [...] psychoses, suicidal ideation, substance use/abuse. Objective: Vitals: 10/26/17 1059 BP: 153/76 Pulse: (!) 48 Resp: 18 Weight: 220 lb (99.8 kg) Height: 5' [...] difficulty rising from a seated position. Opioid [place] Precautions: UDS/Swab- 04/12/17 as expected. 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 Assessment: Tremaine Plunkett is a 62 y.o. male seen in clinic today for chronic thoracic and lumbar degeneration,opioid dependence. He is reporting constant bilateral buttock numbness into lower legs and feet bilaterally. 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 He did see Dr. Sepulveda updated imaging [...] namenda. Also could consider SCS trial and given educational materials today. He may be interested in medical cannabis trial with goal of reducing opioids. He has not had adequate pain control last 2 months with Vicodin and has failed numerous extended release opioids in the past. Recommend Belbuca for pain and he is educated on the medication and possible risks and side effects today. Reducing Vicodin to 10/325 mg 1 tab TID MME = 30 from MME 60. Will start Belbuca 300 mcg every 12 hours = MME 18 (less to account for incomplete cross tolerance) Plan: Continue Vicodin 10/325 mg 1 tablet 3 times a day as needed for breakthrough pain. Start Belbuca 300 mcg every 12 hours. Call with any side effect concerns. Brochure given today with possible risks and side effects and practice placebo film. Also FAQs given to patient. Continue Methocarbamol 500 mg at bedtime as [...] eat fresh fruits/vegetables, fiber in your diet. [employer] SCS implant brochure given for patient to review. Patient is unsure about pursuing medical cannabis enrollment, will speak with net developer Follow-up in 4 weeks Marivel Cavazos PA-C [facility] [address] [facility]. [address] [place] [address] documented in this encounter Plan of Treatment Upcoming Encounters Date Type Specialty Care Team Description 02/17/2022 Office Visit Pain & [place] [address] [place], [place] [address] (Wo rk) documented as of this encounter Visit Diagnoses Diagnosis Chronic pain syndrome Degeneration of lumbar or lumbosacral in tervertebral disc Bilateral lumbar radiculopathy Opioid type dependence, continuous (H) Opioid type dependence, continuous Degeneration of thoracic intervertebral disc Degeneration of thoracic or thoracolumba r intervertebral disc documented in this encounter Care Teams Wallboard Worker Relationship Specialty Start Date End Date Marlee Coles MD PCP - General 02/10/15 05/18/21 [place] [address] [address] [place], [place] [id number] oTny Gray MD Referring Physician Orthopedics 10/01/14 Conner Harper MD MD Orthopedics 10/01/[address] [place], [place] [address] documented as of this encounter
--- OUTSIDE RECORDS SUMMARY | 2022-01-27 10:19 | XMS_ITS | Encounter Summary ---
:1955 Author Organization [place] Address [address] [facility] [place] [address] Care Team Providers Name Role Phone Tony Gray MD Unavailable Conner Harper MD Unavailable Marlee Coles MD Primary Care Provider [phone] Encounter Details Date Type Department Care Team Description 08/18/2016 [facility] B, PA-C [address] [facility] [address] [facility] [address] [facility] [address] [place], [place] [phone] [address] Social History Tobacco Use Types Packs/Day Years Used Date Never Assessed Sex Assigned at Date Recorded Not on file documented as of this encounter Plan of Treatment Upcoming Encounters Date Type Specialty Care Team Description 02/17/2022 Office Visit Pain & [place] [address] [place], [place] [address] (Wo rk) documented as of this encounter Visit Diagnoses Not on filedocumented in this encounter Care Teams Global Commodity Manager Relationship Specialty Start Date End Date Marlee Coles MD PCP - General 02/10/15 05/18/21 [facility] [place] [address] [place] [address] Tony Gray MD Referring Physician Orthopedics 10/01/14 Conner Harper MD MD Orthopedics 10/01/[address] [place], [place] [address] documented as of this encounter
--- OUTSIDE RECORDS SUMMARY | 2022-01-27 10:19 | XMS_ITS | Encounter Summary ---
:1955 Author Organization [place] Address [address] [facility] [place] [address] Care Team Providers Name Role Phone Tony Gray MD Unavailable Conner Harper MD Unavailable Marlee Coles MD Primary Care Provider Reason for Visit Reason Comments Back Pain Abdominal Pain Encounter Details Date Type Department Care Team Description 12/01/2015 Hospital Encounter 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 [address] [place], [place] [phone] [address] Social History Tobacco Use Types Packs/Day Years Used Date Never Assessed Sex Assigned at Date Recorded Not on file documented as of this encounter Last Filed Vital Signs Vital Sign Reading Time Taken Comments Blood Pressure - - Pulse - - Temperature - - Respiratory Rate - - Oxygen Saturation - - Inhaled Oxygen Concentration - - Weight 104.3 kg (230 lb) 12/01/2015 10:39 AM CDT Height 170.2 cm (5' 7) 12/01/2015 10:39 AM CDT Body Mass Index 36.02 12/01/2015 10:39 AM CDT documented in this encounter Medications [...] encounter Progress Notes Marivel Cavazos PA-C - 12/01/2015 10:22 AM CDT PAIN CENTER PROGRESS NOTE Subjective: Tremaine Plunkett is a 60 y.o. male who presents for evaluation of [...] 4. Opioid Dependence With Continuous Use 5. Thoracic Disc Degeneration Pain location and description: 4-5/10 constant sharp, ugly, and aching pain in mid and low back, buttock, and bilateral legs. Function rated 8. Last visit pain rated 4/10. Radiation of pain: Buttocks bilaterally, mid back pain radiates into left chest intermittently underneath breast. Paresthesias, numbness, weakness: Numbness in buttock. Legs bilaterally, right worse than left. Gait disturbance: None reported, denies recent falls. Exacerbating factors: bending to tie shoes, prolonged sitting, cold temperatures, being without painmedications, current abdominal symptoms. Alleviating factors: Pain medications, standing or changing positions, synera patch every 3rd day, back brace up to 1.5 hours daily with bending or yardwork activities Associated symptoms: Sleep disturbance due to pain, taking Amitriptyline 1-2 at bedtime. Adverse effects of medications: xerostomia. Denies constipation, pruritus, drowsiness, dizziness. Current treatment efficacy: Good. Pain rated between 4-5/10 which is tolerable. States some days better and some days worse. Current treatment compliance: Good; denies self-escalation of doses and no early refill requests. UDS appropriate. Keeps appointment follow-ups with pain center. Does walking and stretching exercise inthe morning. [facility]I Lumbar MRI in [place] 2 weeks ago. He states he saw Dr. Steinberg in follow-up and was recommendedto take Diclofenac 75 mg BID and he states it is somewhat helpful taking some pressure off his lowerback. He states he will follow-up in one month. He does get a stomach upset from med and is taking it with food during the day but not at night. Denies other side effects. States there wasn't any new surgical discussion. He states in the past he was recommended to have rods placed in his spine and he feels he is not interested in this until he is unable to function. He reports bilateral buttock numbness which travels down bilateral legs to feet. He states usually numbness goes away after changing positions from sitting to standing. Denies new injury or trauma. He reports this is painful but difficult to describe. He denies changes in bowel or bladder control. He states now that he is back outside for summer he has sores and itching in bilateral upper arms where he is exposed to sun. No sores on legs as he has not worn shorts outside. Denies rash on face, scalp, neck, upper back, torso. He wonders if Opana ER can cause this. We discuss product information lists itching as adverse effect 15% in clinical trials and sweating 9% but doesn't specifically address sun exposure. He doesn't wear sunscreen. He has had rash prior without know cause, thought to be from Gabapentin but this was discontinued. Review of Systems Constitutional: Sleep disturbance. Rash, itching on arms. Denies fever, chills, night sweats, lethargy, weight loss, weight gain, Musculoskeletal: Positive for back pain, leg pain. [...] psychoses, suicidal ideation, substance use/abuse. Objective: Vitals: 12/01/15 1039 BP: 141/72 Pulse: (!) 50 Resp: 18 Weight: (!) 230 lb (104.3 kg) Height: 5' 7 (1.702 m) PainSc: 5 Physical Exam Constitutional- General appearance: Well developed, comfortable, overweight, and appearance reflectsstated age. Able to sit for entire visit. Presents alone. Psychiatric- Judgment and insight: Normal Speech: Normal rhythm. Thought process: Normal. No abnormal thoughts reported. Alert & Oriented to person, place, and time. Recent and remote memory: Normal. Mood and affect: Normal. Observed mood: Slightly anxious, stressed. Respiratory- Breathing is non-labored; normal rhythm and rate. Cardiovascular- Extremities warm and well perfused, no peripheral edema or varicosities. Dermatologic- Exposed skin is clean, dry, and intact to inspection and palpation. He does have very small, erythematous papules approximately 8 on right forearm and a few on his left deltoid region, various stages of healing. None open or draining. Musculoskeletal- Gait and station: Abnormal, antalgia on the right. Gait evaluation demonstrates ambulating independently. Patient does have difficulty rising from a seated position. Lumbar Spine- Normal gross alignment. Extremities- No joint swelling, erythema, or warmth. Lab: UDS from 09/30/15 appropriate for prescribed medications. [place] [facility] reviewed on 08/04/15 with percocet 5/325 mg #40 filled on 07/01/[address] Christiano Mccarty appropriate per patient history. Assessment: Tremaine Plunkett is a 60 y.o. male seen in clinic today for chronic thoracic and lumbar degeneration,opioid dependence. He is reporting more constant bilateral buttock numbness into lower legs bilaterally. He did see Dr. Steinberg with updated imaging which we will request a report to review. He is taking Diclofenac with some reduction in pain symptoms. He is educated we may consider treating with repeat lumbar epidural injection, neuropathic medication such as trileptal, amantadine or namenda. Plan: Continue Opana 15 mg every 12 hours. Try using sunscreen to arms and legs (sun exposed areas) to see if this helps with skin itching/sores. Continue Tramadol 100 mg up to 3 times per day (max 6 tablets per day) as needed for pain. Both sent electronically to [facility] today to fill 12/08/15. Continue Synera, Methocarbamol, Amitriptyline as prescribed. Please call our Nurse Triage phone # [phone] days in advance for next month's opioid prescription refill to be sent electronically to your pharmacy. Sign release for Dr. Steinberg and the [facility] MRI image for us to review We can add in amantadine or namenda for augmenting pain control and nerve pain relief as needed. Follow-up in 8 weeks to evaluate the above plan of care. 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
--- OUTSIDE RECORDS SUMMARY | 2022-01-27 10:19 | XMS_ITS | Encounter Summary ---
:1955 Author Organization [place] Address [address] [place] [address] Care Team Providers Name Role Phone Tony Gray MD Unavailable Conner Harper MD Unavailable Marlee Coles MD Primary Care Provider [phone] Reason for Visit Reason Comments Other peer to peer review Encounter Details Date Type Department Care Team Description 08/18/2016 [facility] Marivel Cavazos [facility] Eric Hernadez PA-C [address] [facility] [address] [place], [place] [phone] [address] Social History Tobacco Use Types Packs/Day Years Used Date Never Assessed Sex Assigned at Date Recorded Not on file documented as of this encounter Progress Notes Marivel Cavazos PA-C - 08/18/2016 9:35 AM CST Peer to peer review with Dr. Mayorga: Opana ER 15 mg recommend weaning to 10 mg every 12 hours. Tramadol 50 mg - consider hydrocodone 10 mg TID. Weaning of both opioids recommended as goal of 80 MME or lower, patient is at MME 120. D/c Synera, will cover OTC aspercreme 4%. Amitriptyline 40 mg consider increase to 50 mg tab for cost and ease of dosing purposes. Robaxin 500 mg BID - reduce to at night prn #30 Lyrica trial or Cymbalta to assist with pain. Will sent summary letter to follow. [employer] documented in this encounter Plan of Treatment Upcoming Encounters Date Type Specialty Care Team Description 02/17/2022 Office Visit Pain & [place] [address] [place], [place] [address] (Wo rk) documented as of this encounter Visit Diagnoses Not on filedocumented in this encounter Care Teams Varnishing Machine Operator Relationship Specialty Start Date End Date Marlee Coles MD PCP - General 02/10/15 05/18/21 [place] [address] [place], [place] [id number] Toyn Gray MD Referring Physician Orthopedics 10/01/14 Conner Harper MD MD Orthopedics 10/01/[address] [facility] [facility] [address] [place], [place] [id number] documented as of this encounter
--- OUTSIDE RECORDS SUMMARY | 2022-01-27 10:19 | XMS_ITS | Encounter Summary ---
:1955 Author Organization [place] Address [address] [place] [address] Care Team Providers Name Role Phone Tony Gray MD Unavailable Conner Harper MD Unavailable Marlee Coles MD Primary Care Provider [phone] Reason for Visit Reason Comments Back Pain Knee Pain Encounter Details Date Type Department Care Team Description 09/01/2016 Hospital Encounter [facility] Dirk, Iain id type dependence, continuous (H); Pain Center Marivel Hernadez PA-C Degeneration of lumbar or lumbosacral in tervertebral disc; [address] [facility] [address] [place] Bilateral linda mbar radiculopathy [place] [address] [place], [place] [address] [address] [place], [place] [phone] [address] Social History Tobacco Use Types Packs/Day Years Used Date Never Assessed Sex Assigned at Date Recorded Not on file documented as of this encounter Last Filed Vital Signs Vital Sign Reading Time Taken Comments Blood Pressure - - Pulse - - Temperature - - Respiratory Rate - - Oxygen Saturation - - Inhaled Oxygen Concentration - - Weight 100.2 kg (221 lb) 09/01/2016 9:59 AM CDT Height 170.2 cm (5' 7) 09/01/2016 9:59 AM CDT Body Mass Index 34.61 09/01/2016 9:59 AM CDT documented in this encounter [...] encounter Progress Notes Marivel Cavazos PA-C - 09/01/2016 9:50 AM CDT PAIN CENTER PROGRESS NOTE [...] 1. Opioid Dependence With Continuous Use 2. Lumbar Disc Degeneration 3. Bilateral lumbar radiculopathy Pain location and description: 4/10 constant sharp, aching pounding pain in mid and low back, buttock, and bilateral legs. Function rated 7. Last visit pain rated 5/10. Radiation of [...] constipation, drowsiness, dizziness. Current treatment efficacy: Fair. Pain rated between 4-5/10 which is tolerable. States some days better and some days worse. Current treatment compliance: Good; denies self-escalation of doses and no early refill requests. UDS appropriate. Keeps appointment follow-ups with pain center. Does walking and stretching exercise inthe morning. Since last visit had right knee replacement at [facility] with Dr. Mg. This was 5 weeks ago. Describes infection day 3 aspirated oral antibiotics completed yesterday. Still swelling and pain with recovery. Not using AD. Completed rehab yesterday and states he has HEP. For postoperative pa in he stayed on his current opioid medications and was also written for hydroxyzine. Checked with [facility] in [place] and he did not fill any other opioids postoperatively. Icing knee and sometimes wakes at night feeling on fire. He states he is glad he did it and slowly improving. He is interested in changing his opioid regimen per our last discussion. I also reviewed with him the discussion on peer to peer phone call with WC on 08/18/16: Peer to peer review with Dr. Mayorga: ??Opana ER 15 mg recommend weaning to 10 [...] trial or Cymbalta to assist with pain. He is agreeable to the recommendations. He states he has not filled Amitriptyline in many months andis no longer taking. He is unsure if this has worsened his pain or sleep as he has had more pain secondary to his knee surgery. He will try to stay off it for now. He is taking Tylenol 500 mg QID Prn and started ASA 325 mg daily after surgery. Review of Systems Constitutional: Sleep disturbance due to pain. Generalized itching, denies recent rash. Denies fever, chills, night sweats, lethargy, weight loss, weight gain, Musculoskeletal: Positive for back pain, leg pain, right knee pain. Denies weakness, joint swelling,recent falls. Gastrointestional: [...] psychoses, suicidal ideation, substance use/abuse. Objective: Vitals: 09/01/16 0959 BP: 152/80 Pulse: 75 Resp: 16 Weight: 221 lb (100.2 kg) Height: 5' 7 (1.702 m) PainSc: 4 Physical Exam Constitutional- General appearance: Well developed, comfortable, overweight, and appearance reflectsstated age. Able to sit for entire visit. Presents alone. Psychiatric- Judgment and insight: Normal. [...] difficulty rising from a seated position. Opioid [place] Precautions: UDS/Swab- 03/29/16 as expected Consent due Agreement- 07/21/16 Pharmacy- as documented WRITING TUTOR- MNPMP reviewed 09/01/16 as expected Count- n/a Psychological evaluation n/a 03/29/16 MME- 120 Pharmacogenetic testing n/a Imaging: None new. Assessment: Tremaine Plunkett is a 60 y.o. male seen in clinic today for chronic thoracic and lumbar degeneration,opioid dependence. He is reporting constant bilateral buttock numbness into lower legs bilaterally. He did see Dr. Steinberg with updated imaging which demonstrates stable central L4-5 disc herniation encroaching on the L5 nerve roots and severe left L4-5 foraminal stenosis which has progressed since 2006 and moderate right L4-5 foraminal stenosis. He is educated we may consider treating with repeat lumbar epidural injection, neuropathic medication such as Lyrica, Cymbalta, amantadine or namenda. Also could consider SCS trial but patient not interested in reviewing educational materials today. We discuss tolerance to opioids and he is willing to make recommended changes today which will bring his MMEto 90 which is in line with the CDC guidelines. He has failed fentanyl, methadone, oxycontin, morphine and that leaves limited choices such as Hysingla. He may be appropriate for an MTM visit to reviewpain medications with our pharmacist. Plan: Reduce Opana 10 mg every 12 hours. To fill 09/21/16. Discontinue Tramadol when it expires on 09/21. Take Vicodin 10/325 mg 3 times a day as needed for breakthrough pain. Discontinue Synera. You may use OTC aspercreme 4% topically to painful areas. Continue Methocarbamol 500 mg at night as needed Patient is off Amitriptyline at night; if you want to restart in the future we can at 10 mg dose. We can add in amantadine or namenda for augmenting pain control and nerve pain relief as needed. Also discussed options of spinal cord stimulator implant and/or considering medical cannabis for pain topotentially reduce opiate dependence, patient not interested in pursuing at this time. Continue with knee replacement recovery. Patient has discontinued postoperative med dosing. Follow-up in 8 weeks Marivel Addendum: After patient and provider reviewed AVS, patient notified provider that he will be traveling to [place] for 2 weeks and his refill will be due when he is out of state. He requested to have a fill date for 09/07/16 as he is leaving on 09/12/16 and wants to make sure he allows enough time for fill and delivery to his home before the weekend. He is aware that both medications are not for use until 09/21/16. This change in dates was communicated by phone to IWP on 09/01/16 at 1600 by provider. Marivel Cavazos PA-C [facility] [address] [facility] [place] [address] documented in this encounter Plan of Treatment Upcoming Encounters Date Type Specialty Care Team Description 02/17/2022 Office Visit Pain & [place] [address] [place], [place] [address] (Wo rk) documented as of this encounter Visit Diagnoses Diagnosis Opioid type dependence, continuous (H) Opioid type dependence, continuous Degeneration of lumbar or lumbosacral in tervertebral disc Bilateral lumbar radiculopathy documented in this encounter Care Teams Family Independence Case Manager Relationship Specialty Start Date End Date Marlee Coles MD PCP - General 02/10/15 05/18/21 [place] [address] [place], [place] [id number] Tony Gray MD Referring Physician Orthopedics 10/01/14 Conner Harper MD MD Orthopedics 10/01/14 [address] [facility] [address] [place] [address] documented as of this encounter
--- OUTSIDE RECORDS SUMMARY | 2022-01-27 10:19 | XMS_ITS | Encounter Summary ---
:1955 Author Organization [place] Address [address] [place] [address] Care Team Providers Name Role Phone Tony Gray MD Unavailable Conner Harper MD Unavailable Marlee Coles MD Primary Care Provider [phone] Reason for Visit Reason Comments Medication Refill opana, tramadol Encounter Details Date Type Department Care Team Description 03/23/2016 Communication - [facility] Zoe Ramos Refill [facility] Ji Lopez MD (opana, tramadol) [address] [place] [id number] [phone] Social History Tobacco Use Types Packs/Day Years Used Date Never Assessed Sex Assigned at Date Recorded Not on file documented as of this encounter Plan of Treatment Upcoming Encounters Date Type Specialty Care Team Description 02/17/2022 Office Visit Pain & [place] [address] [place], [place] [address] (Wo rk) documented as of this encounter Visit Diagnoses Diagnosis Degeneration of lumbar or lumbosacral in tervertebral disc documented in this encounter Care Teams Sand Carrier Relationship Specialty Start Date End Date Marlee Coles MD PCP - General 02/10/15 05/18/21 [place] [address] [address] [place], [place] [address] Tony Gray MD Referring Physician Orthopedics 10/01/14 Conner Harper MD MD Orthopedics 10/01/14 [facility] [place], [place] [address] documented as of this encounter
--- OUTSIDE RECORDS SUMMARY | 2022-01-27 10:19 | XMS_ITS | Encounter Summary ---
:1955 Author Organization [place] Address [address] [place] [address] Care Team Providers Name Role Phone Tony Gray MD Unavailable Conner Harper MD Unavailable Marlee Coles MD Primary Care Provider [phone] Reason for Visit Reason Comments Back Pain Abdominal Pain Encounter Details Date Type Department Care Team Description 09/30/2015 Hospital Encounter [facility] onic pain syndrome; [facility] Marivel Hernadez PA-C Degeneration of lumbar or lumbosacral in tervertebral disc; [address] [place] Bilateral lumbar radiculopathy; [facility] Opioid type dependence, continuous (H) [facility] 101 [address] [place], [place] [phone] [address] Social History Tobacco Use Types Packs/Day Years Used Date Never Assessed Sex Assigned at Date Recorded Not on file documented as of this encounter Last Filed Vital Signs Vital Sign Reading Time Taken Comments Blood Pressure - - Pulse - - Temperature - - Respiratory Rate - - Oxygen Saturation - - Inhaled Oxygen Concentration - - Weight 101.2 kg (223 lb) 09/30/2015 10:31 AM CDT Height 170.2 cm (5' 7) 09/30/2015 10:31 AM CDT Body Mass Index 34.93 09/30/2015 10:31 AM CDT documented in this encounter Medications [...] encounter Progress Notes Marivel Cavazos PA-C - 09/30/2015 10:50 AM CDT PAIN CENTER PROGRESS NOTE Subjective: [...] With Continuous Use Pain location and description: 4/10 constant sharp numb pain in mid and low back, buttock, and legs.Function rated 5. Last visit pain rated 5/10. Radiation of pain: Buttocks bilaterally, mid back [...] Does walking and stretching exercise inthe morning. He reports bilateral buttock numbness which travels down bilateral legs to feet. He states usually numbness goes away after changing positions from sitting to standing and now isn't going away for the past few weeks. Denies new injury or trauma. He reports this is painful but difficult to describe. Hedenies changes in bowel or bladder control. He is scheduled with Dr. Steinberg for evaluation in 2 weeks. He will discuss updating imaging at that time. He was told by Dr. Steinberg last x-ray that things are going to get worse and either cause him to have surgery or be in a wheelchair. He states in the past couple days he noticed two red sores in upper arms; no changes in meds, diet, he reports itchy and used peroxide on last night to clean. He reports a lot of stress in the past week due to father in a [place]. He has had rash prior without know cause, thought to be from Gabapentin but this was discontinued. Review of Systems Constitutional: Sleep disturbance. Denies fever, chills, night sweats, lethargy, weight loss, weightgain, Musculoskeletal: Positive for back pain, leg pain. [...] psychoses, suicidal ideation, substance use/abuse. Objective: Vitals: 09/30/15 1031 BP: (!) 155/93 Pulse: 79 Weight: (!) 223 lb (101.2 kg) Height: 5' 7 (1.702 m) PainSc: 4 Physical Exam Constitutional- General appearance: Well developed, uncomfortable, overweight, and appearance reflects stated age. Standing for part of visit. Presents alone. Psychiatric- Judgment and insight: [...] swelling, erythema, or warmth. Lab: UDS from 04/08/15 appropriate for prescribed medications. [place] [employer] reviewed on 08/04/15 with percocet 5/325 mg #40 filled on 07/01/[address] Christiano Mccarty appropriate per patient history. Assessment: Tremaine Plunkett is a 60 y.o. male seen in clinic today for chronic thoracic and lumbar degeneration,opioid dependence. He is reporting more constant bilateral buttock numbness into lower legs bilaterally. He is seeing Dr. Steinberg in 2 weeks for follow-up. He is educated we may consider treating with repeat lumbar epidural injection, neuropathic medication such as trileptal, amantadine or namenda. Plan: Continue Opana 15 mg every 12 hours. Continue Tramadol 100 mg up to 3 times per day (max 6 tablets per day) as needed for pain. Both sent electronically to [facility] today. Continue Synera, Methocarbamol, Amitriptyline as prescribed. Please call our Nurse Triage phone # seven days in advance for next month's opioid prescription refill to be sent electronically to your pharmacy. See Dr. Steinberg for follow-up of back symptoms and consideration of updated imaging for numbness in buttock. We can add in amantadine or namenda for augmenting pain control and nerve pain relief as needed. Follow-up in 8 weeks to evaluate the above plan of care. Marivel Cavazos PA-C [facility] documented in this encounter Plan of Treatment Upcoming Encounters Date Type Specialty Care Team Description 02/17/2022 Office Visit Pain & [place] [address] [address] [place] [address] (Wo rk) documented as of this encounter Visit Diagnoses Diagnosis Chronic pain syndrome Degeneration of lumbar or lumbosacral in tervertebral disc Bilateral lumbar radiculopathy Opioid type dependence, continuous (H) Opioid type dependence, continuous documented in this encounter Care Teams Can Intake Worker Relationship Specialty Start Date End Date Marlee Coles MD PCP - General 02/10/15 05/18/21 [place] [address] [address] [address] Tony Gray MD Referring Physician Orthopedics 10/01/14 Conner Harper MD MD Orthopedics 10/01/[address] [place], [place] [address] documented as of this encounter
--- OUTSIDE RECORDS SUMMARY | 2022-01-27 10:19 | XMS_ITS | Encounter Summary ---
:1955 Author Organization [place] Address [address] [facility] [address] Care Team Providers Name Role Phone Tony Gray MD Unavailable Conner Harper MD Unavailable Marlee Coles MD Primary Care Provider [phone] Encounter Details Date Type Department Care Team Description 12/03/2015 Ambulatory - [facility], PA-C [address] [facility] 1600 [facility] [address] [place], [place] [phone] [address] Social History Tobacco Use Types Packs/Day Years Used Date Never Assessed Sex Assigned at Date Recorded Not on file documented as of this encounter Plan of Treatment Upcoming Encounters Date Type Specialty Care Team Description 02/17/2022 Office Visit Pain & [place] [address] [facility] [place], [place] [address] (Wo rk) documented as of this encounter Visit Diagnoses Not on filedocumented in this encounter Care Teams Proposition Player Relationship Specialty Start Date End Date Marlee Coles MD PCP - General 02/10/15 05/18/21 [facility] [place] [address] [address] [place] [address] Tony Gray MD Referring Physician Orthopedics 10/01/14 Conner Harper MD MD Orthopedics 10/01/[address] [place] [address] documented as of this encounter
--- OUTSIDE RECORDS SUMMARY | 2022-01-27 10:19 | XMS_ITS | Encounter Summary ---
:1955 Author Organization [place] Address [address] [facility] [place] [address] Care Team Providers Name Role Phone Tony Grya MD Unavailable Conner Harper MD Unavailable Marlee Coles MD Primary Care Provider Encounter Details Date Type Department Care Team Description 02/04/2016 Ambulatory - [facility], PA-C 1700 [facility] 1600 [facility] 101 [address] [place], [place] [phone] [address] Social History Tobacco Use Types Packs/Day Years Used Date Never Assessed Sex Assigned at Date Recorded Not on file documented as of this encounter Plan of Treatment Upcoming Encounters Date Type Specialty Care Team Description 02/17/2022 Office Visit Pain & [place] [address] [facility] [place], [place] [address] (Wo rk) documented as of this encounter Visit Diagnoses Not on filedocumented in this encounter Care Teams Emerging Solutions Executive Relationship Specialty Start Date End Date Marlee Coles MD PCP - General 02/10/15 05/18/21 [facility] [place] [address] [address] [place] [address] Tony Gray MD Referring Physician Orthopedics 10/01/14 Conner Harper MD MD Orthopedics 10/01/[address] [place] [address] documented as of this encounter
--- OUTSIDE RECORDS SUMMARY | 2022-01-27 10:19 | XMS_ITS | Encounter Summary ---
:1955 Author Organization [place] Address [address] [facility] [place] [address] Care Team Providers Name Role Phone Tony Gray MD Unavailable Conner Harper MD Unavailable Marlee Coles MD Primary Care Provider Reason for Visit Reason Comments Medication Refill Encounter Details Date Type Department Care Team Description 01/04/2016 Communication - [facility] Provider, [facility]ica [facility] [place] [facility] [address] [place] [address] Social History Tobacco Use Types Packs/Day Years Used Date Never Assessed Sex Assigned at Date Recorded Not on file documented as of this encounter Plan of Treatment Upcoming Encounters Date Type Specialty Care Team Description 02/17/2022 Office Visit Pain & [place] [address] [place], [place] [address] (Wo rk) documented as of this encounter Visit Diagnoses Diagnosis Degeneration of lumbar or lumbosacral in tervertebral disc documented in this encounter Care Teams Beekeeper Relationship Specialty Start Date End Date Marlee Coles MD PCP - General 02/10/15 05/18/21 [place] [address] [address] [facility] 304 [place], [place] [id number] Tony Gray MD Referring Physician Orthopedics 10/01/14 Conner Harper MD MD Orthopedics 10/01/14 [facility] [place], [place] [id number] [place] [address] documented as of this encounter
--- OUTSIDE RECORDS SUMMARY | 2022-01-27 10:19 | XMS_ITS | Encounter Summary ---
:1955 Author Organization [place] Address [address] [facility] [place] [address] Care Team Providers Name Role Phone Tony Gray MD Unavailable Conner Harper MD Unavailable Marlee Coles MD Primary Care Provider [phone] Reason for Visit Reason Comments Back Pain Encounter Details Date Type Department Care Team Description 03/29/2016 Hospital Encounter [facility] Deg eneration of lumbar [place] or lumbosacral [address] [place] [address] Social History Tobacco Use Types [...] - - Weight 104.3 kg (230 lb) 03/29/2016 10:04 AM CDT Height 170.2 cm (5' 7) 03/29/2016 10:04 AM CDT Body Mass Index 36.02 03/29/2016 10:04 AM CDT documented in this encounter [...] documented as of this encounter Progress Notes Radha [facility] - 03/29/2016 4:40 PM CDT Opioid [place] Precautions: UDS/Swab- 03/29/16 pending Consent due Agreement- 06/09/15 Pharmacy- as documented SEAM HAMMERER- MNPMP reviewed online 03/29/16 - ok Count- n/a Psychological evaluation n/a 03/29/16 MME- 120 Pharmacogenetic testing n/a I reviewed the CSS visit and opioid universal precautions. Medication approved as cued. TT: 05:51 Rayo Butler - 03/29/2016 10:01 AM CDT Since Last Visit: Have there been any changes in your pain?: No Have you had any ED/urgent care visits?: No If yes, did you receive opioids?: Have you had any surgeries/hospitalizations since your last visit?: NO If yes, did you receive opioids at discharge?: Are you taking your medication(s) as prescribed?: Yes Is patient requesting an early refill?: Medication Efficacy: Are you having any side effects?: No If yes, are they manageable?: Does your medication help control your pain?: Yes Does your medication improve your quality of life?: Yes Medications Cued Up For This Visit: Monitoring (mm/dd/yy): Most Recent UDT/ODT: 03/29/16 If UDT/ODT collected today insert (.JHUDS): Most Recent CSA: Most Recent SEAM HAMMERER: Most Recent EKG (if applicable): Notes: documented in this encounter Plan of Treatment Upcoming Encounters Date Type Specialty Care Team Description 02/17/2022 Office Visit Pain & [place] [address] [facility] [place] [address] (Wo rk) documented as of this encounter Visit Diagnoses Diagnosis Degeneration of lumbar or lumbosacral in tervertebral disc documented in this encounter Care Teams Library Sales Consultant Relationship Specialty Start Date End Date Sharyn Marlee Meme Foreman MD PCP - General 02/10/15 05/18/21 [place] [address] [address] [place] [address] Tony Gray MD Referring Physician Orthopedics 10/01/14 Conner Harper MD MD Orthopedics 10/01/14 [address] [facility] [address] [place], [place] [address] documented as of this encounter
--- OUTSIDE RECORDS SUMMARY | 2022-01-27 10:19 | XMS_ITS | Encounter Summary ---
:1955 Author Organization [place] Address [address] [facility] [place] [address] Care Team Providers Name Role Phone Tony Gray MD Unavailable Conner Harper MD Unavailable Marlee Coles MD Primary Care Provider Encounter Details Date Type Department Care Team Description 10/06/2015 Ambulatory - [facility], PA-C 1700 [facility] 1600 [facility] 101 [address] [place], [place] [phone] [address] Social History Tobacco Use Types Packs/Day Years Used Date Never Assessed Sex Assigned at Date Recorded Not on file documented as of this encounter Plan of Treatment Upcoming Encounters Date Type Specialty Care Team Description 02/17/2022 Office Visit Pain & [place] [address] [facility] R [place], [place] [address] (Wo rk) documented as of this encounter Visit Diagnoses Not on filedocumented in this encounter Care Teams Business And Marketing Teacher Relationship Specialty Start Date End Date Marlee Coles MD PCP - General 02/10/15 05/18/21 [facility] [place] [address] [place] [address] Tony Gray MD Referring Physician Orthopedics 10/01/14 Conner Harper MD MD Orthopedics 10/01/[address] [place] [address] documented as of this encounter
--- OUTSIDE RECORDS SUMMARY | 2022-01-27 10:19 | XMS_ITS | Encounter Summary ---
:1955 Author Organization [place] Address [address] [facility] [address] Care Team Providers Name Role Phone Tony Gray MD Unavailable Conner Harper MD Unavailable Marlee Coles MD Primary Care Provider [phone] Reason for Visit Reason Comments Back Pain Encounter Details Date Type Department Care Team Description 05/26/2016 Hospital Encounter [facility] Gregorio Cavazos type dependence, continuous (H); [place] Marivel Hernadez PA-C Degeneration of lumbar or lumbosacral in tervertebral disc; [address] [place] [address] [place] [facility], lumbar region [facility] 101 [address] [place], [place] [phone] [address] Social History Tobacco Use Types Packs/Day Years Used Date Never Assessed Sex Assigned at Date Recorded Not on file documented as of this encounter Last Filed Vital Signs Vital Sign Reading Time Taken Comments Blood Pressure - - Pulse - - Temperature - - Respiratory Rate - - Oxygen Saturation - - Inhaled Oxygen Concentration - - Weight 104.3 kg (230 lb) 05/26/2016 10:20 AM VETERINARY ASSISTANT Height 170.2 cm (5' 7) 05/26/2016 10:20 AM VETERINARY ASSISTANT Body Mass Index 36.02 05/26/2016 10:20 AM VETERINARY ASSISTANT documented in this encounter Medications at Time [...] encounter Progress Notes Marivel Cavazos PA-C - 05/26/2016 10:10 AM CST PAIN CENTER PROGRESS NOTE Subjective: [...] With Continuous Use 2. Lumbar Disc Degeneration Pain location and description: 11/26 constant sharp, awful, pounding pain in mid and low back, buttock, and bilateral legs. He reports his pain level is higher today due to cold weather. Function rated 7. Last visit pain rated 4-5/10. Radiation of pain: Buttocks bilaterally, lower legs. [...] Sleep disturbance due to pain, taking Amitriptyline at bedtime. Adverse effects of medications: xerostomia. Some itching 1 hour after taking Opana, Denies constipation, drowsiness, dizziness. Current treatment efficacy: Good. Pain rated between 4-5/10 which is tolerable. States some days better and some days worse. Current treatment compliance: Good; denies self-escalation of doses and no early refill requests. UDS appropriate. Keeps appointment follow-ups with pain center. Does walking and stretching exercise inthe morning. Nurse visit on 03/29/16 as expected with refills given. Denies health updates or medication change since last seen. He continues to struggle with knee pain, pursuing orthopedic second opinion. He states at times thisaffects his back pain due to how he stands, walks, needs to change positions often. He does not wish to make changes to his plan today. Discontinued diclofenac as it was causing dizziness at BID dosing. We also discussed other approaches to be able to reduce opiate such as a spinal cord stimulator implant trial. He states he has not fully considered this but has been discussed in thepast Review of Systems Constitutional: Sleep disturbance due to pain. Generalized itching, recent rash. Denies fever, chills, night sweats, [...] psychoses, suicidal ideation, substance use/abuse. Objective: Vitals: 05/26/16 1020 BP: 161/74 Pulse: 76 Resp: 16 Weight: (!) 230 lb (104.3 kg) Height: 5' 7 (1.702 m) PainSc: 6 Physical Exam Constitutional- General appearance: Well developed, uncomfortable, overweight, and appearance reflects stated age. Able to sit for entire visit. [...] difficulty rising from a seated position. Opioid [place] Precautions: UDS/Swab- 03/29/16 as expected Consent due Agreement- 06/09/15 Pharmacy- as documented BLOCK MECHANIC- MNPMP reviewed online 03/29/16 - ok Count- n/a Psychological evaluation n/a 03/29/16 MME- 120 Pharmacogenetic testing n/a Imaging: MRI of the lumbar spine on 11/10/2015 Conclusion: Chronic thoracolumbar Scheuermann's type endplate changes with the following specific findings: 1. Chronic central L4-5 disc herniation encroaches on the central L5 roots without significant central stenosis. 2. Severe left L4-5 foraminal stenosis with left L4 ganglionic/neural impingement. 3. Moderate right L4-5 and mild to moderate left L5-S1 foraminal stenosis. 4. No fracture, mass or infection. Comment: As compared to previous study in 2006, progression of left foraminal stenosis at L4-5 with left L4 neural impingement. No significant change in central disc herniation at L4-5. Assessment: Tremaine Plunkett is a 60 y.o. [...] medication such as trileptal, amantadine or namenda. Also could consider SCS trial but patient not interested in reviewing educational materials today. Plan: Continue Opana 15 mg every 12 hours. Continue Tramadol 100 mg up to 3 times per day (max 6 tablets per day) as needed for pain. Both filled 05/18 [facility] Continue Synera, Methocarbamol, Amitriptyline as prescribed. Please call our Nurse Triage phone # seven days in advance for next month's opioid prescription refill to be sent electronically to your pharmacy. We can add in amantadine or namenda for augmenting pain control and nerve pain relief as needed. Also discussed options of spinal cord stimulator implant and/or considering medical cannabis for pain topotentially reduce opiate dependence, patient not interested in pursuing at this time. Follow-up in 8 weeks Marivel Cavazos PA-C [facility] RINARY ASSISTANT documented in this encounter Plan of Treatment Upcoming Encounters Date Type Specialty Care Team Description 02/17/2022 Office Visit Pain & [place] [address] [place], [place] [address] (Wo rk) documented as of this encounter Visit Diagnoses Diagnosis Opioid type dependence, continuous (H) Opioid type dependence, continuous Degeneration of lumbar or lumbosacral in tervertebral disc Radiculopathy, lumbar region Thoracic or lumbosacral neuritis or radi culitis, unspecified documented in this encounter Care Teams Funeral Greeter Relationship Specialty Start Date End Date Marlee Coles MD PCP - General 02/10/15 05/18/21 [facility] [place] [address] [place] [address] Tony Gray MD Referring Physician Orthopedics 10/01/14 Conner Harper MD MD Orthopedics 10/01/[address] [place], [place] [address] documented as of this encounter
--- OUTSIDE RECORDS SUMMARY | 2022-01-27 10:19 | XMS_ITS | Encounter Summary ---
:1955 Author Organization [place] Address [address] [place] [address] Care Team Providers Name Role Phone Tony Gray MD Unavailable Conner Harper MD Unavailable Marlee Coles MD Primary Care Provider Reason for Visit Reason Comments Medication Refill Encounter Details Date Type Department Care Team Description 06/16/2016 Communication - [facility] [place], Medicat ion Refill [facility] Marivel Hernadez PA-C [address] [facility] 1600 [facility] [address] [facility] 101 [address] [place], [place] [phone] [address] Social History Tobacco Use Types Packs/Day Years Used Date Never Assessed Sex Assigned at Date Recorded Not on file documented as of this encounter Plan of Treatment Upcoming Encounters Date Type Specialty Care Team Description 02/17/2022 Office Visit Pain & [place] [address] [place], [place] [address] (Wo rk) documented as of this encounter Visit Diagnoses Diagnosis Degeneration of lumbar or lumbosacral in tervertebral disc documented in this encounter Care Teams Hatchery Attendant Relationship Specialty Start Date End Date Marlee Coles MD PCP - General 02/10/15 05/18/21 [place] [address] [address] [place], [place] [address] Tony Gray MD Referring Physician Orthopedics 10/01/14 Conner Harper MD MD Orthopedics 10/01/14 [facility] [place], [place] [address] [place] [address] documented as of this encounter
--- OUTSIDE RECORDS SUMMARY | 2022-01-27 10:19 | XMS_ITS | Encounter Summary ---
:1955 Author Organization [place] Address [address] [facility] [place] [address] Care Team Providers Name Role Phone Tony Gray MD Unavailable Conner Harper MD Unavailable Marlee Coles MD Primary Care Provider Reason for Visit Reason Comments Medication Refill Encounter Details Date Type Department Care Team Description 11/09/2015 Communication - [facility] Provider, Medica tion [facility]ill [facility] [place] [facility] [address] [place] [address] Social History Tobacco Use Types Packs/Day Years Used Date Never Assessed Sex Assigned at Date Recorded Not on file documented as of this encounter Plan of Treatment Upcoming Encounters Date Type Specialty Care Team Description 02/17/2022 Office Visit Pain & [place] [address] [place], [place] [address] (Wo rk) documented as of this encounter Visit Diagnoses Diagnosis Degeneration of lumbar or lumbosacral in tervertebral disc documented in this encounter Care Teams Reservoir Engineering Consultant Relationship Specialty Start Date End Date Marlee Coles MD PCP - General 02/10/15 05/18/21 [place] [address] [address] [facility] [address] [place], [place] [phone] Tony Gray MD Referring Physician Orthopedics 10/01/14 Conner Harper MD MD Orthopedics 10/01/14 [facility] [place], [place] [id number] [place] [address] documented as of this encounter
--- OUTSIDE RECORDS SUMMARY | 2022-01-27 10:19 | XMS_ITS | Encounter Summary ---
:1955 Author Organization [place] Address [address] [place] [address] Care Team Providers Name Role Phone Tony Gray MD Unavailable Conner Harper MD Unavailable Marlee Coles MD Primary Care Provider Reason for Visit Reason Comments Medication Refill Encounter Details Date Type Department Care Team Description 05/18/2016 [facility] [place] Marivel Hernadez PA-C [address] [place] [address] [phone] [place], [place] [phone] [address] Social History Tobacco Use Types Packs/Day Years Used Date Never Assessed Sex Assigned at Date Recorded Not on file documented as of this encounter Plan of Treatment Upcoming Encounters Date Type Specialty Care Team Description 02/17/2022 Office Visit Pain & [place] [address] [place], [place] [address] (Wo rk) documented as of this encounter Visit Diagnoses Diagnosis Degeneration of lumbar or lumbosacral in tervertebral disc documented in this encounter Care Teams Certified Professional Controller Relationship Specialty Start Date End Date Marlee Coles MD PCP - General 02/10/15 05/18/21 [facility] [place] [address] [place], [place] [address] Tony Gray MD Referring Physician Orthopedics 10/01/14 Conner Harper MD MD Orthopedics 10/01/14 [facility] [facility] [address] [place] [address] documented as of this encounter
--- OUTSIDE RECORDS SUMMARY | 2022-01-27 10:19 | XMS_ITS | Encounter Summary ---
:1955 Author Organization [place] Address [address] [place] [address] Care Team Providers Name Role Phone Tony Gray MD Unavailable Conner Harper MD Unavailable Marlee Coles MD Primary Care Provider [phone] Reason for Visit Reason Comments Medication Refill Encounter Details Date Type Department Care Team Description 08/24/2016 Communication - [facility] [place], Medicat ion Refill [facility] Marivel Hernadez PA-C [address] [facility] [address] [facility] [address] [facility] 101 [address] [place], [place] [phone] [address] Social History Tobacco Use Types Packs/Day Years Used Date Never Assessed Sex Assigned at Date Recorded Not on file documented as of this encounter Plan of Treatment Upcoming Encounters Date Type Specialty Care Team Description 02/17/2022 Office Visit Pain & [place] [address] [place], [place] [address] (Wo rk) documented as of this encounter Visit Diagnoses Diagnosis Degeneration of lumbar or lumbosacral in tervertebral disc documented in this encounter Care Teams Occupational Health Nurse Manager Relationship Specialty Start Date End Date Marlee Coles MD PCP - General 02/10/15 05/18/21 [place] [address] [address] [place], [place] [address] Tony Gray MD Referring Physician Orthopedics 10/01/14 Conner Harper MD MD Orthopedics 10/01/14 Formerly named [facility] [place], [place] [id number] [place] [address] documented as of this encounter
--- OUTSIDE RECORDS SUMMARY | 2022-01-27 10:19 | XMS_ITS | Encounter Summary ---
:1955 Author Organization [place] Address [address] [place] [address] Care Team Providers Name Role Phone Tony Gray MD Unavailable Conner Harper MD Unavailable Marlee Coles MD Primary Care Provider [phone] Reason for Visit Reason Comments Back Pain Encounter Details Date Type Department Care Team Description 07/21/2016 Hospital Encounter [facility] Alessandro Cavazos neration of thoracic intervertebral disc; Pain Center Marivel Hernadez PA-C Degeneration of lumbar or lumbosacral in tervertebral disc; [address] [facility] [address] [facility] Opioid type dependence, continuous (H); [place] [address] Bilateral lumbar radiculopathy [place], [place] [address] [place], [place] [phone] [address] Social History Tobacco Use Types Packs/Day Years Used Date Never Assessed Sex Assigned at Date Recorded Not on file documented as of this encounter Last Filed Vital Signs Vital Sign Reading Time Taken Comments Blood Pressure - - Pulse - - Temperature - - Respiratory Rate - - Oxygen Saturation - - Inhaled Oxygen Concentration - - Weight 100.2 kg (221 lb) 07/21/2016 10:02 AM INDEPENDENT CONTRACTOR Height 170.2 cm (5' 7) 07/21/2016 10:02 AM INDEPENDENT CONTRACTOR Body Mass Index 34.61 07/21/2016 10:02 AM INDEPENDENT CONTRACTOR documented in this encounter Medications at Time [...] encounter Progress Notes Marivel Cavazos PA-C - 07/21/2016 9:43 AM CST PAIN CENTER PROGRESS NOTE Subjective: Tremaine Plunkett is a 60 y.o. male who presents for evaluation of mid and low back pain. He has thoracic and lumbar degeneration status post work injury. He has had lumbar epidural steroid injection andlumbar radiofrequency which was effective for pain relief. He did not have relief from thoracic epidural steroid injection. Major issues: 1. Degeneration of thoracic intervertebral disc 2. Lumbar Disc Degeneration 3. Opioid Dependence With Continuous Use 4. Bilateral lumbar radiculopathy Pain location and description: 5/10 constant sharp, awful, pounding pain in mid and low back, buttock, and bilateral legs. He reports his pain level is higher today due to knee pain. Function rated 8. Last visit pain rated 6/10. Radiation of pain: Buttocks [...] walking and stretching exercise inthe morning. He continues to struggle with right knee pain, states he slipped on ice a few weeks ago which reallyaggravated symptoms, denies falling. He states at times this affects his back pain due to how he stands, walks, needs to change positions often. He is scheduled next week for right knee replacement at [facility] with Dr. Mg is surgeon. Discussed postoperative pain plan; he reports anesthesia will do longer block and also keep on current medications and then take additional percocet. States his pain in his leg is so bad that he wants to cut it off. He does not wish to make changes to his plan today. Discontinued diclofenac as it was causing dizziness at BID dosing. We also discussed other approaches to be able to reduce opiate such as a spinal cord stimulator implant trial. He states he has not fully considered this but has been discussed in thepast. He states he has spoken to several other physicians who urged him to attempt reducing opana dosing to see if it was really helpful for his pain or if he is tolerant. He asked about opioid rotation if he is tolerant to another medication. Review of Systems Constitutional: Sleep disturbance due [...] psychoses, suicidal ideation, substance use/abuse. Objective: Vitals: 07/21/16 1002 BP: 161/87 Pulse: 66 Resp: 16 Weight: 221 lb (100.2 kg) [...] difficulty rising from a seated position. Opioid [place] Precautions: UDS/Swab- 03/29/16 as expected Consent due Agreement- 07/21/16 Pharmacy- as documented CAD PROGRAMMER- MNPMP reviewed 07/21/16 as expected Count- n/a Psychological evaluation n/a [...] today. We discuss tolerance to opioids and after his knee surgery considering an opioid reduction to see if pain levels are stable on less medication or also opioid rotation although he has failed fentanyl, methadone, oxycontin, morphine and that leaves limited choices such as Hysingla. He may be appropriate for an MTM visit to review pain medications with our pharmacist. We discuss the concept of hyperalgesia today as well. He requests no changes until after he is recovered from right total knee arthroplasty that is scheduled later this month. Plan: Continue Opana 15 mg every 12 hours. Discussed in the near future reducing this dose to see if it is effective or not. We could rotate toa different opioid like Hysingla (extended release hydrocodone). Can utilize our pharmacist for an MTM visit while we are considering or making these changes. Continue Tramadol 100 mg up to 3 times per day (max 6 tablets per day) as needed for pain. Continue Synera, Methocarbamol, Amitriptyline as prescribed. Please [...] not interested in pursuing at this time. Patient is planning to have knee replacement surgery in the next 1-2 weeks. Has a postoperative planwith surgeon to take Percocet as needed along with above medications which is not against our opioidagreement. Will hold off on any chronic pain management changes until you have recovered from surgery. Opioid agreement renewed today Follow-up in 8 weeks Marivel Cavazos PA-C [facility] [address] [facility] [place] [address] PENDENT CONTRACTOR documented in this encounter Plan of Treatment Upcoming Encounters Date Type Specialty Care Team Description 02/17/2022 Office Visit Pain & [place] [address] [place], [place] [address] ( rk) documented as of this encounter Visit Diagnoses Diagnosis Degeneration of thoracic intervertebral disc Degeneration of thoracic or thoracolumba r intervertebral disc Degeneration of lumbar or lumbosacral in tervertebral disc Opioid type dependence, continuous (H) Opioid type dependence, continuous Bilateral lumbar radiculopathy documented in this encounter Care Teams Lens Cutter Relationship Specialty Start Date End Date Marlee Coles MD PCP - General 02/10/15 05/18/21 [place] [address] [address] [address] Tony Gray MD Referring Physician Orthopedics 10/01/14 Conner Harper MD MD Orthopedics 10/01/14 [facility] [place] [address] documented as of this encounter
--- OUTSIDE RECORDS SUMMARY | 2022-01-27 10:19 | XMS_ITS | Encounter Summary ---
:1955 Author Organization [place] Address [address] [facility] [place] [address] Care Team Providers Name Role Phone Tony Gray MD Unavailable Conner Harper MD Unavailable Marlee Coles MD Primary Care Provider [phone] Reason for Visit Reason Comments Other peer review med review due b y 08/23/16 Encounter Details Date Type Department Care Team Description 08/05/2016 [facility] Sharona Leach (peer review [facility] Roxann RN med review due by [address] [facility] 08/23/16) [address] [place] [address] Social History Tobacco Use Types Packs/Day Years Used Date Never Assessed Sex Assigned at Date Recorded Not on file documented as of this encounter Plan of Treatment Upcoming Encounters Date Type Specialty Care Team Description 02/17/2022 Office Visit Pain & [place] [address] [place], [place] [address] (Wo rk) documented as of this encounter Visit Diagnoses Not on filedocumented in this encounter Care Teams Enterprise Security Architect Relationship Specialty Start Date End Date Marlee Coles MD PCP - General 02/10/15 05/18/21 [place] [address] [address] [address] Tony Gray MD Referring Physician Orthopedics 10/01/14 Conner Harper MD MD Orthopedics 10/01/[address] [place], [place] [address] documented as of this encounter
--- OUTSIDE RECORDS SUMMARY | 2022-01-27 10:20 | XMS_ITS | Encounter Summary ---
:1955 Author Organization [place] Address [address] [place] [address] Care Team Providers Name Role Phone Tony Gray MD Unavailable Conner Harper MD Unavailable Marlee Coles MD Primary Care Provider Reason for Visit Reason Comments Medication Refill Encounter Details Date Type Department Care Team Description 07/30/2015 Communication - [facility] [place] Hawa Jiang Medic ation Refill [facility] A, RN [address] [facility] [address] [place] [address] Social History Tobacco Use Types Packs/Day Years Used Date Never Assessed Sex Assigned at Date Recorded Not on file documented as of this encounter Plan of Treatment Upcoming Encounters Date Type Specialty Care Team Description 02/17/2022 Office Visit Pain & [place] [address] [place], [place] [address] (Wo rk) documented as of this encounter Visit Diagnoses Diagnosis Degeneration of lumbar or lumbosacral in tervertebral disc documented in this encounter Care Teams Costumed Character Entertainer Relationship Specialty Start Date End Date Marlee Coles MD PCP - General 02/10/15 05/18/21 [place] [address] [address] [facility] [address] [place], [place] [phone] Tony Gray MD Referring Physician Orthopedics 10/01/14 Conner Harper MD MD Orthopedics 10/01/14 [address] [facility] [address] [place] [address] documented as of this encounter
--- OUTSIDE RECORDS SUMMARY | 2022-01-27 10:20 | XMS_ITS | Encounter Summary ---
:1955 Author Organization [place] Address [address] [facility] [place] [address] Care Team Providers Name Role Phone Verified, No Ref-Primary Primary Care Provider Unavailable Tony Gray MD Unavailable Conner Harper MD Unavailable Reason for Visit Reason Comments Back Pain Encounter Details Date Type Department Care Team Description 10/14/2014 Hospital Encounter [facility] Terrence Cavazos onic pain syndrome; [place] Marivel Hernadez PA-C Degeneration of thoracic or thoracolumba r intervertebral disc; [address] [place] [address] [place] on of lumbar or lumbosacral intervertebral disc; [facility] Opioid type dependence, continuous (H) [place], [place] [phone] [place], [place] [phone] [address] Social History Tobacco Use Types Packs/Day Years Used Date Never Assessed Sex Assigned at Date Recorded Not on file documented as of this encounter Last Filed Vital Signs Vital Sign Reading Time Taken Comments Blood Pressure - - Pulse - - Temperature - - Respiratory Rate - - Oxygen Saturation - - Inhaled Oxygen Concentration - - Weight 104.8 kg (231 lb) 10/14/2014 10:08 AM CDT Height 170.2 cm (5' 7) 10/14/2014 10:08 AM CDT Body Mass Index 36.18 10/14/2014 10:08 AM CDT documented in this encounter Progress Notes Marivel Cavazos PA-C - 10/14/2014 10:00 AM CDT PAIN CENTER PROGRESS NOTE Subjective: Tremaine Plunkett is a 59 y.o. male who presents for evaluation of mid and low back pain. He has thoracic and lumbar degeneration status post work injury. He has had lumbar epidural steroid injection andlumbar radiofrequency which was effective for pain relief. He did not have relief from thoracic epidural steroid injection. Major issues: 1. Chronic pain syndrome 2. Thoracic Disc Degeneration 3. Lumbar Disc Degeneration 4. Opioid Dependence With Continuous Use Pain location and description: 8/10 constant sharp pain in mid and low back. Function rated 8. Last visit pain rated 5/10. Radiation of pain: Legs bilaterally, mid back pain radiates into left chest intermittently underneath breast. Paresthesias, numbness, weakness: Legs bilaterally Gait disturbance: None reported Exacerbating factors: Cold weather, prolonged sitting, being without pain medications Alleviating factors: Pain medications, standing or changing positions Associated symptoms: Denies Adverse effects of medications: xerostomia, waking with headache from Amitriptyline so discontinued last week. Has #22 left. Eyes, mouth feel better upon waking now. Current treatment efficacy: Good. Current treatment compliance: Good; denies self-escalation of doses and no early refill requests. UDS appropriate. Keeps appointment follow-ups with pain center. Last month was given medrol dose pack for help with pain control; he states this helped take the pain levels down after it was finally approved (visit on 08/26/14, approved after telephone note dated 09/18/14). Denies side effects. He states pain control was very good since last seen until he ran out of Opana 15 mg every 12 hours daily. States some days only took once due to dizziness therefore was able to have 4 week refill lastabout 6 weeks. He states dizziness only intermittent when bending over to clean the dogs paws or similar bending activity; denies falls. States it improved after he had been taking it about 1 week. He has had 4 occasions where his medication refills are held up by work comp and he goes days to weeks before refill approved. Denies withdrawal but causes fluctuations in pain control. His refill of Opanathat was authorized by this provider to his pharmacy on 09/30/14 is still not approved. Tramadol filled 09/17/14, Methocarbamol filled. He is working with his cartographic drafter to rectify this situation. States he has been lied to by Maite, his rep from work comp carrier, on several occasions and is very frustrated by this situation. This provider has never spoken to Maite, although he states she says we have. Review of Systems Constitutional: Sleep disturbance. Denies fever, chills, night sweats, lethargy, weight loss, weightgain, Musculoskeletal: Positive for back pain. Denies muscle pain, weakness, joint pain, joint swelling, recent falls. Gastrointestional: Denies difficulty swallowing, change in appetite, abdominal pain, constipation, nausea, vomiting, diarrhea, GERD, fecal incontinence. Genitourinary: Denies urinary incontinence, dysuria, hematuria, UTI, frequency, hesitancy, change inlibido/erectile dysfunction. Neurologic: Denies headaches, confusion, seizure, weakness, changes in balance, changes in speech. Psychiatric: Denies depression, anxiety, memory loss, psychoses, suicidal ideation, substance use/abuse. Objective: Filed Vitals: 10/14/14 1008 BP: 151/84 Pulse: 71 Height: 5' 7 (1.702 m) Weight: 231 lb (104.781 kg) PainSc: 8 Physical Exam Constitutional- General appearance: Normal. Well developed, uncomfortable, overweight, and appearance reflects stated age. Sitting for entire visit. Psychiatric- Judgment and insight: Normal Speech: Normal rhythm. Thought process: Normal. No abnormal thoughts reported. Alert & Oriented to person, place, and time. Recent and remote memory: Normal. Mood and affect: Normal. Observed mood: Agitated, anxious. Respiratory- Breathing is non-labored; normal rhythm and rate. Cardiovascular- Extremities warm and well perfused, no peripheral edema or varicosities. Dermatologic- Exposed skin is clean, dry, and intact to inspection and palpation. No rashes Musculoskeletal- Gait and station: Abnormal, antalgia on the right. Gait evaluation demonstrates ambulating independently. Patient does have difficulty rising from a seated position. Lumbar Spine- Normal gross alignment. Extremities- No joint swelling, erythema, or warmth. Lab: Last UDS on 08/26/14 was reviewed and was appropriate. Assessment: Tremaine Plunkett is a 59 y.o. male seen in clinic today for chronic thoracic and lumbar degeneration.He reports his pain symptoms are not stable due to recent interruption in opioid therapy. Plan: Restart Opana 15 mg every 12 hours once approved by ; prescription still at [facility] per patient.Discussed being caution on restarting medication to watch for side effects, primarily dizziness withbending. Continue Tramadol and Methocarbamol as prescribed. You may take Amitriptyline as needed for sleep but patient is not taking daily due to side effects. Follow-up in 8 weeks to evaluate the above plan of care. Marivel Cavazos PA-C [facility] documented in this encounter Plan of Treatment Upcoming Encounters Date Type Specialty Care Team Description 02/17/2022 Office Visit Pain & [place] [address] [place], [place] [address] (Wo rk) documented as of this encounter Visit Diagnoses Diagnosis Chronic pain syndrome Degeneration of thoracic or thoracolumba r intervertebral disc Degeneration of lumbar or lumbosacral in tervertebral disc Opioid type dependence, continuous (H) Opioid type dependence, continuous documented in this encounter Care Teams Sludge Filtration Operator Relationship Specialty Start Date End Date Verified, No Ref-Primary PCP - General 10/01/14 Tony Gray MD Referring Physician Orthopedics 10/01/14 Conner Harper MD MD Orthopedics 10/01/[address] [place] [address] documented as of this encounter
--- OUTSIDE RECORDS SUMMARY | 2022-01-27 10:20 | XMS_ITS | Encounter Summary ---
:1955 Author Organization [place] Address [address] [place] [address] Care Team Providers Name Role Phone Verified, No Ref-Primary Primary Care Provider Unavailable Tony Gray MD Unavailable Conner Harper MD Unavailable Marlee Coles MD Primary Care Provider Ashish Alexander Primary Care Provider Unavailable Reason for Visit Reason Comments Medication Refill Encounter Details Date Type Department Care Team Description 08/18/2014 Communication - [facility] Manju Krause, [facility] Refill [facility] RN [address] [place] [address] Social History Tobacco Use Types Packs/Day Years Used Date Never Assessed Sex Assigned at Date Recorded Not on file documented as of this encounter Plan of Treatment Upcoming Encounters Date Type Specialty Care Team Description 02/17/2022 Office Visit Pain & [place] [address] [place], [place] [address] (Wo rk) documented as of this encounter Visit Diagnoses Not on filedocumented in this encounter Care Teams Telegraph Repeater Installer Relationship Specialty Start Date End Date Verified, No Ref-Primary PCP - General 10/01/14 Marlee Coles MD PCP - General 02/10/15 05/18/21 [place] [address] [address] [place] [address] Ashish Alexander PCP - General 12/05/13 09/30/14 Tony Gray MD Referring Physician Orthopedics 10/01/14 Conner Harper MD MD Orthopedics 10/01/14 [facility][note 3][address] [place], [place] [address] [place], [place] [address] documented as of this encounter
--- OUTSIDE RECORDS SUMMARY | 2022-01-27 10:20 | XMS_ITS | Encounter Summary ---
:1955 Author Organization [place] Address [address] [place] [address] Care Team Providers Name Role Phone Tony Gray MD Unavailable Conner Harper MD Unavailable Marlee Coles MD Primary Care Provider [phone] Reason for Visit Reason Comments Medication Refill Encounter Details Date Type Department Care Team Description 06/03/2015 Communication - [facility] Marivel Hernadez PA-C [address] [place] [address] [place], [place] [phone] [address] Social History Tobacco Use Types Packs/Day Years Used Date Never Assessed Sex Assigned at Date Recorded Not on file documented as of this encounter Plan of Treatment Upcoming Encounters Date Type Specialty Care Team Description 02/17/2022 Office Visit Pain & [place] [address] [place], [place] [address] (Wo rk) documented as of this encounter Visit Diagnoses Diagnosis Degeneration of lumbar or lumbosacral in tervertebral disc documented in this encounter Care Teams Electrical Engineering Teacher Relationship Specialty Start Date End Date Marlee Coles MD PCP - General 02/10/15 05/18/21 [facility] [place] [address] [address] [place], [place] [address] Tony Gray MD Referring Physician Orthopedics 10/01/14 Conner Harper MD MD Orthopedics 10/01/14 [facility] [address] [facility] [address] [place] [address] documented as of this encounter
--- OUTSIDE RECORDS SUMMARY | 2022-01-27 10:20 | XMS_ITS | Encounter Summary ---
:1955 Author Organization [facility] Address [address] [place] [address] Care Team Providers Name Role Phone Tony Gray MD Unavailable Conner Harper MD Unavailable Marlee Coles MD Primary Care Provider Reason for Visit Reason Comments Back Pain Encounter Details Date Type Department Care Team Description 04/08/2015 Hospital Encounter [facility] on[facility] pain syndrome; [facility] Marivel Hernadez PA-C Degeneration of lumbar or lumbosacral in tervertebral disc; [address] Degenerati on of thoracic or thoracolumbar intervertebral disc; [address] [facility] Opioid type dependence, continuous (H) [facility] [address] [id number] [place], [place] [phone] [id number] Social History Tobacco Use Types Packs/Day Years Used Date Never Assessed Sex Assigned at Date Recorded Not on file documented as of this encounter Last Filed Vital Signs Vital Sign Reading Time Taken Comments Blood Pressure - - Pulse - - Temperature - - Respiratory Rate - - Oxygen Saturation - - Inhaled Oxygen Concentration - - Weight 102.1 kg (225 lb) 04/08/2015 10:10 AM CDT Height 170.2 cm (5' 7) 04/08/2015 10:10 AM CDT Body Mass Index 35.24 04/08/2015 10:10 AM CDT documented in this encounter Medications [...] encounter Progress Notes Marivel Cavazos PA-C - 04/08/2015 10:21 AM CDT PAIN CENTER PROGRESS NOTE Subjective: [...] pain syndrome 2. Lumbar Disc Degeneration 3. Thoracic Disc Degeneration 4. Opioid Dependence With Continuous Use Pain location and description: 5/10 constant sharp pain in mid and low back. Function rated 4. Last visit pain rated 5/10. Pain levels between 4-5 and sometimes less than that which is tolerable. States doing pretty good for pain control and has had a good month due to weather. Radiation of pain: Buttocks bilaterally, mid back pain radiates into left chest intermittently underneath breast. Paresthesias, numbness, weakness: Legs bilaterally, right worse than left. Gait disturbance: None reported, denies recent falls. Exacerbating factors: bending to tie shoes, prolonged sitting, cold temperatures, being without painmedications Alleviating factors: Pain medications, standing or changing positions, synera patch every 3rd day, back brace up to 1.5 hours daily with bending or yardwork activities Associated symptoms: Has stomach pain, not associated with medications. Adverse effects of medications: xerostomia. Denies constipation, rash. Current treatment efficacy: Good. States some days better and some days worse. Started walking with his dog again, can walk up to 12 blocks. Current treatment compliance: Good; denies self-escalation of doses and no early refill requests. UDS appropriate. Keeps appointment follow-ups with pain center. Does walking and stretching exercise inthe morning. Has stomach pain in mid abdomen that is generalized; has had since cholecystectomy. He denies erythema, open sores, drainage, warmth near scars. He has seen provider at [facility] and he started PPI without efficacy. He has been advised to have abdominal ultrasound. He denies any association of stomach pain with his opioids. He denies nausea, vomiting, fever, chills, weight loss, bowel or bladder changes. He states medication is not helping but he hates going for visits so hasn't followed up. Denies new concerns with pain symptoms. Happy with pain control and medication management at this time. Review of Systems Constitutional: Sleep disturbance. Denies fever, chills, night sweats, lethargy, weight loss, weightgain, Musculoskeletal: Positive for back pain, muscle pain. Denies weakness, joint pain, joint swelling, recent falls. Gastrointestional: Abdominal pain near umbilicus. Denies difficulty swallowing, change in appetite, constipation, nausea, vomiting, diarrhea, fecal incontinence. Genitourinary: Denies urinary incontinence, dysuria, hematuria, frequency, hesitancy, change in libido/erectile dysfunction. Neurologic: Denies headaches, confusion, seizure, weakness, changes in balance, changes in speech. Psychiatric: Denies depression, anxiety, memory loss, psychoses, suicidal ideation, substance use/abuse. Objective: Filed Vitals: 04/08/15 1010 BP: 139/83 Pulse: 67 Height: 5' 7 (1.702 m) Weight: 225 lb (102.059 kg) PainSc: 5 Physical Exam Constitutional- General appearance: Well developed, comfortable, overweight, and appearance reflectsstated age. Sitting for entire visit. Psychiatric- Judgment and insight: Normal Speech: Normal rhythm. Thought process: Normal. No abnormal thoughts reported. Alert & Oriented to person, place, and time. Recent and remote memory: Normal. Mood and affect: Normal. Observed mood: Slightly anxious, more calm than previous visits. Respiratory- Breathing is non-labored; normal rhythm and [...] warmth. Lab: Last UDS on 08/26/14 was appropriate. Assessment: Tremaine Plunkett is a 59 y.o. male seen in clinic today for chronic thoracic and lumbar degeneration,opioid dependence. Reports overall pain levels very stable and tolerable since last visit. Plan: Continue Opana 15 mg every 12 hours. Continue Tramadol 100 mg up to 3 times per day (max 6 tablets per day) as needed for pain. Refills sent to [facility]. Continue Synera, Methocarbamol, Amitriptyline as prescribed. Please call our Nurse Triage phone # seven days in advance for next month's opioid prescription refill to be sent electronically to your pharmacy. Make appointment for abdominal ultrasound due to continued symptoms Follow-up in 8 weeks to evaluate the above plan of care. Marivel Cavazos PA-C [facility] documented in this encounter Plan of Treatment Upcoming Encounters Date Type Specialty Care Team Description 02/17/2022 Office Visit Pain & [place] [address] [place], [place] [address] (Wo rk) documented as of this encounter Visit Diagnoses Diagnosis Chronic pain syndrome Degeneration of lumbar or lumbosacral in tervertebral disc Degeneration of thoracic or thoracolumba r intervertebral disc Opioid type dependence, continuous (H) Opioid type dependence, continuous documented in this encounter Care Teams Flight Readiness Technician Relationship Specialty Start Date End Date Marlee Coles MD PCP - General 02/10/15 05/18/21 [place] [address] [address] [place], [place] [address] Tony Gray MD Referring Physician Orthopedics 10/01/14 Conner Harper MD MD Orthopedics 10/01/14 [address] [place], [place] [address] documented as of this encounter
--- OUTSIDE RECORDS SUMMARY | 2022-01-27 10:20 | XMS_ITS | Encounter Summary ---
:1955 Author Organization [facility] Address [address] [place] [address] Care Team Providers Name Role Phone Ashish Alexander Primary Care Provider Unavailable Reason for Visit Reason Comments Back Pain Encounter Details Date Type Department Care Team Description 07/02/2014 Hospital Encounter [facility] Ter[facility] Cavazos onic pain; [facility] Mar[facility]ade[facility] Degeneration of lumbar or lumbosacral in tervertebral disc; [address] [place] [address] Thoracic o r lumbosacral neuritis or radiculitis, unspecified [place] [id number] [place], [place] [phone] [address] Social History Tobacco Use Types Packs/Day Years Used Date Never Assessed Sex Assigned at Date Recorded Not on file documented as of this encounter Last Filed Vital Signs Vital Sign Reading Time Taken Comments Blood Pressure - - Pulse - - Temperature - - Respiratory Rate - - Oxygen Saturation - - Inhaled Oxygen Concentration - - Weight - - Height 170.2 cm (5' 7) 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 AG MACHINE OPERATOR Marivel Cavazos PA-C - 07/02/2014 10:25 AM CST PAIN CENTER PROGRESS NOTE Subjective: Tremaine Plunkett is a 58 y.o. male who presents for evaluation of mid and low back pain. He has thoracic and lumbar degeneration status post work injury. He has had lumbar epidural steroid injection andlumbar radiofrequency which was effective for pain relief. He did not have relief from thoracic epidural steroid injection. Major issues: 1. Chronic pain Pain location and description: 5/10 constant variable pain in mid and low back Radiation of pain: Legs bilaterally Paresthesias, numbness, weakness: Legs bilaterally Gait disturbance: None reported Exacerbating factors: Cold weather, prolonged sitting Alleviating factors: Pain medications, standing or changing positions Associated symptoms: Rash from one of his medications Adverse effects of medications: Rash, otherwise denies Current treatment efficacy: Good Current treatment compliance: Good; denies self-escalation of doses and no early refill requests. UDS appropriate. Keeps appointment follow-ups with pain center. He reports since last seen he had laparoscopic cholecystectomy last month. He reports that the surgery went well without complication, however he does report that since surgery he has been having difficulty tolerating his pain medication. He reports he was not taking his oral Opana in the hospital, and was given IV morphine. Once he restarted his oral Opana at home, he developed a erythematous, pruritic rash on his bilateral trunk. He has had previous outbreak of rash on his bilateral arms and trunkwhich is attributed to gabapentin which he is no longer taking. He reports no other changes in his medications on an outpatient basis. He was previously prescribed morphine extended release prior to Opana, and did not have incidence of rash, however he is concerned that he may have developed an allergy to morphine products. We discussed other options for long- acting pain control, and he has failed methadone in the past. He is willing to trial OxyContin even though his allergy list has Percocet listed; he states it has been so long since he took that he cannot even recall his reaction. Review of Systems Constitutional: Denies fever, chills, night sweats, lethargy, weight loss, weight gain, sleep disturbance. Musculoskeletal: Positive for back pain. Denies muscle [...] suicidal ideation, substance use/abuse. Objective: Filed Vitals: 07/02/14 1018 BP: 143/73 Pulse: 78 Temp: 97.9 ??F (36.6 ??C) Height: 5' 7 (1.702 m) PainSc: 5 Physical Exam Constitutional- General appearance: Normal. Well developed, uncomfortable, overweight, and appearance reflects stated age. Stands for part of the visit. Psychiatric- Judgment and insight: Normal Speech: Normal rhythm. Thought process: Normal. No abnormal thoughts reported. Alert & Oriented to person, place, and time. Recent and remote memory: Normal. Mood and affect: Normal. Observed mood: Slightly anxious. Respiratory- Breathing is non-labored; normal rhythm and rate. Cardiovascular- Extremities warm and well perfused, no peripheral edema or varicosities. Dermatologic- Exposed skin is clean, dry, and intact to inspection and palpation. Abdomen does have healing sores 1 cm diameter bilateral lower quadrants. No drainage. Musculoskeletal- Gait and station: Normal. Gait evaluation demonstrates ambulating independently. Patient does not have difficulty rising from a seated position. Lumbar Spine- Normal gross alignment. Extremities- No joint swelling, erythema, or warmth. Lab: Last UDS on 03/12/14 was reviewed and was appropriate. Assessment: Tremaine Plunkett is a 58 y.o. male seen in clinic today for chronic thoracic and lumbar degeneration.He reports his pain symptoms are stable, however he is not tolerating Opana ER which is causing pruritus. His rash is healing without new outbreak, however he states it occurred after restarting the medication from his hospitalization. He has previous history of a rash while taking Gabapentin which resolved after discontinuation, however he was also taking Morphine ER at the time and he has concerns about a morphine allergy. He is advised we can do dose conversion to OxyContin and is cautioned as hehas an allergy listed to Percocet although he cannot recall what his reaction was. We will use equalanalgesic conversion of 20 mg Opana equivalent to 10 mg OxyContin with slight reduction to account for new medication. Plan: Prescribed 28 days of OxyContin, Tramadol with no refills. Discussed possible side effects on OxyContin. Continue Amitriptyline and Methocarbamol as prescribed with refills needed. Follow-up in 4 weeks to evaluate the above plan of care. Marivel Cavazos PA-C [facility] AG MACHINE OPERATOR documented in this encounter Plan of Treatment Upcoming Encounters Date Type Specialty Care Team Description 02/17/2022 Office Visit Pain & [place] [address] [place], [place] [address] (Wo rk) documented as of this encounter Visit Diagnoses Diagnosis Chronic pain Other chronic pain Degeneration of lumbar or lumbosacral in tervertebral disc Thoracic or lumbosacral neuritis or radi culitis, unspecified documented in this encounter Care Teams Mohs Surgeon Relationship Specialty Start Date End Date Ashish Alexander PCP - General 12/05/13 09/30/14 documented as of this encounter
--- OUTSIDE RECORDS SUMMARY | 2022-01-27 10:20 | XMS_ITS | Encounter Summary ---
:1955 Author Organization [facility] Address [address] [place] [address] Care Team Providers Name Role Phone Verified, No Ref-Primary Primary Care Provider Unavailable Tony Gray MD Unavailable Conner Harper MD Unavailable Encounter Details Date Type Department Care Team Description 11/03/2014 Radiant Appointment [facility] Conner Harper, Knee pain [facility] [address] [facility] [address] FLOOR, CLINIC [address] [place] [address] [place], [place] [phone] (Work) [phone] Social History Tobacco Use Types Packs/Day Years Used Date Never Assessed Sex Assigned at Date Recorded Not on file documented as of this encounter Plan of Treatment Upcoming Encounters Date Type Specialty Care Team Description 02/17/2022 Office Visit Pain & [place] [address] [place], [place] [address] (Wo rk) documented as of this encounter Procedures Procedure Name Priority Date/Time Associated Diagnosis Comme nts XR KNEE BILATERAL Routine 11/03/2014 11:04 AM Knee pain Res ults for this 1/2 VIEWS CDT procedure are i n the results section. documented in this encounter Results XR Knee Bilateral 1/2 vw (11/03/2014 11:04 AM CDT) Anatomical Region Laterality Modality Knee Bilateral Computed Radiography Specimen (Source) Anatomical Location Collection Method / Collectio n Time Received Time / Laterality Volume Impressions 11/03/2014 11:42 AM CDT Impression: Osteoarthrosis in the bilateral knees, as above, greatest in the right knee. BLAIR WILKERSON MD Narrative 11/03/2014 11:42 AM CDT Exam: Bilateral knees, 2 views each. 11/03/2014. Comparison: Outside radiographs dated . Clinical history: Pain. Findings: AP and lateral views of the bi lateral knees were obtained. Postsurgical changes of a right knee ant erior cruciate ligament reconstruction. No large joint effusion in either knee. Joint space narrowing in the bilateral medial femoro tibial joint compartments, greater on the right. Spurring in the me dial and lateral femorotibial joint compartment of the right knee. Cho ndrocalcinosis in both knees. Procedure Note Blair Wilkerson MD - 11/03/2014Form atting of this note might be different from the original. Exam: Bilateral knees, 2 views each. 10/17. Comparison: Outside radiographs dated . Clinical history: Pain. Findings: AP and lateral views of the bi lateral knees were obtained. Postsurgical changes of a right knee ant erior cruciate ligament reconstruction. No large joint effusion in either knee. Joint space narrowing in the bilateral medial femoro tibial joint compartments, greater on the right. Spurring in the me dial and lateral femorotibial joint compartment of the right knee. Cho ndrocalcinosis in both knees. IMPRESSION Impression: Osteoarthrosis in the bilate ral knees, as above, greatest in the right knee. BLAIR WILKERSON MD Conner Harper MD IMG DIAGNOSTIC IMAGING ORDER ABBI documented in this encounter Visit Diagnoses Diagnosis Knee pain Pain in joint, lower leg documented in this encounter Care Teams Acid Cutter Relationship Specialty Start Date End Date Verified, No Ref-Primary PCP - General 10/01/14 Tony Gray MD Referring Physician Orthopedics 10/01/14 Conner Harper MD MD Orthopedics 10/01/14 [address] [place] [address] documented as of this encounter
--- OUTSIDE RECORDS SUMMARY | 2022-01-27 10:20 | XMS_ITS | Encounter Summary ---
:1955 Author Organization [place] Address [address] [facility] [place] [address] Care Team Providers Name Role Phone Verified, No Ref-Primary Primary Care Provider Unavailable Tony Gray MD Unavailable Conner Harper MD Unavailable Reason for Visit Reason Comments Consult Right knee pain Encounter Details Date Type Department Care Team Description 11/03/2014 Office Visit Orthopaedic Clinic Conner Harper, Knee pain (Primary Dx); [place] Ritesh SCOTT S/P ACL reconstruction; [facility] 7TH DJD (degenerative joint dise ase) of knee; 1st Floor, [address] S/P meniscectomy [address] [place] [phone] Social History Tobacco Use Types Packs/Day Years Used Date Never Assessed Sex Assigned at Date Recorded Not on file documented as of this encounter Last Filed Vital Signs Vital Sign Reading Time Taken Comments Blood Pressure - - Pulse - - Temperature - - Respiratory Rate - - Oxygen Saturation - - Inhaled Oxygen Concentration - - Weight 105.2 kg (232 lb) 11/03/2014 9:35 AM CDT Height 170.2 cm (5' 7) 11/03/2014 9:35 AM CDT Body Mass Index 36.34 11/03/2014 9:35 AM CDT documented in this encounter Progress Notes Conner Harper MD - 11/03/2014 10:06 AM CDT Orthopaedic Surgery Office Note Tremaine Plunkett Age: [age] year old Date of : 1955 Requesting physician: Tony Gray MD Assessment and Plan: Assessment: 1. S/p ACL reconstruction with tibial interference screw, Rt 2. Advanced DJD, Rt knee 3. Diff dx: focal irritation or bursa anterior medial tibia, referred pain from DJD, anterior meniscal pathology. Plan: I spoke to patient and reviewed radiographs which demonstrate tri-compartmental DJD with varus deformity in setting of prior ACL surgery. His pain is focal along the anterior medial tibia however. He has had prior injections of both steroid and synvisc into his knee by Dr. Gray's office without any benefit. Therefore, I advise we obtain Dr. Gray's records, do an MR of the knee to look at theanterior aspect and see if there is fluid extravasation thru the interference screw or other such local problem, and then do a diagnostic lidocaine injection into the symptomatic area on anterior med tibia. Eventually, he will wish to consider TKA and an aspiration with infection w/u would be advisible preop given prior history of a septic arthritis. Pt will ponder this decision and if he wishes to proceed, he will call office back to schedule aboveitems. Conner Harper MD [facility] Professor Oncology and Adult Reconstructive Surgery Dept Orthopaedic Surgery, [facility] [phone] office, pager [email or web address] History of Present Illness: C/C: painful swelling, Rt knee Surgeries: 1. 04/02/1992, Rt knee ACL reconst & MCL repair (Dr. Crouch) 2. 06/08/2011, Rt partial MM, LM meniscectomy & hardware removal (Dr. Gray) 3. 06/22/2011, Rt knee septic arthritis arthroscopic I/D (Dr. Gray) 4. 06/29/2011, Rt knee arthroscopic I/D (Dr. Gray) 5. 08/22/2011, Rt knee athrofibrosis ALFREDITO (Dr. Gray) Above history of surgeries. Has been struggling with pain of Rt knee since the last surgery in 2011 and getting worse. Wakes up at night on days when uses his knee much. Waxes and wanes depending on weather and daytime activities. This condition is significantly affecting his daily activities and quality life. Here today for further evaluation and treatment. *38 pages of OSH records reviewed. Past Medical History: There is no problem list on file for this patient. No past medical history on file. Past Surgical History: No past surgical history on file. Social History: History Social History ??? Marital Status: Spouse Name: N/A Number of Children: N/A ??? Years of Education: N/A Occupational History ??? Not on file. Social History Main Topics ??? Smoking status: Not on file ??? Smokeless tobacco: Not on file ??? Alcohol Use: Not on file ??? Drug Use: Not on file ??? Sexual Activity: Not on file Other Topics Concern ??? Not on file Social History Narrative ??? No narrative on file Family History: No family history on file. Medications: Current Outpatient Prescriptions Medication Sig ??? traMADol (ULTRAM) 50 MG tablet Take by mouth every 6 hours as needed for moderate pain ??? Oxymorphone HCl ER 15 MG T12A ??? methocarbamol (ROBAXIN) 500 MG tablet Take by mouth 4 times daily as needed for muscle spasms No current facility-administered medications for this visit. Review of Systems: A comprehensive 10 point review of systems (constitutional, ENT, cardiac, peripheral vascular, lymphatic, respiratory, GI, , Musculoskeletal, skin, Neurological) was performed and found to be negative except as described in this note. Physical Exam: EXAMINATION pertinent findings: VITAL SIGNS: Height 1.702 m (5' 7), weight 105.235 kg (232 lb). Body mass index is 36.33 kg/(m^2). RESP: non labored breathing ABD: benign SKIN: grossly normal LYMPHATIC: grossly normal NEURO: grossly normal VASCULAR: satisfactory perfusion of all extremities MUSCULOSKELETAL: Rt knee well healed previous op scar midline 12cm. Both knee (Rt/ Lt) exam shows effusion -/-, erythema-/-, warmth -/-. F/c 5/0, f/f 130/145 degrees. Lachmann -/-, valgus +/-, pull -/-, push -/-. Medial joint line tenderness +-/-. Specific tenderness (++) at anteromedial aspect of Rt proximal tibia, probably interference screw site. Distally neurovascularly intact. Data: X-rays taken today show remaining tibial interference screw and 3 compartment degenerative arthritiswith minimal lateral subluxation. Davion Gomez MD, arthroplasty fellow, dictating for attending surgeon Conner Harper MD. Attending MD (Dr. Conner Harper) : I performed a history and physical exam of the patient and discussed his management with the resident. I reviewed the resident's note and agree with the documented findings and plan of care. Conner Harper MD [facility] Family Professor Oncology and Adult Reconstructive Surgery Dept Orthopaedic Surgery, [facility] [phone] office, pager [email or web address] documented in this encounter Nursing Notes Loretta Davis CMA - 11/03/2014 9:35 AM CDT Reason For Visit: Chief Complaint Patient presents with ??? Consult Right knee pain 5' 7 232 lbs 0 oz Body mass index is 36.33 kg/(m^2). Current Outpatient Prescriptions Medication ??? traMADol (ULTRAM) 50 MG tablet ??? Oxymorphone HCl ER 15 MG T12A ??? methocarbamol (ROBAXIN) 500 MG tablet No current facility-administered medications for this visit. Pain Assessment Patient Currently in Pain: Yes 0-10 Pain Scale: 6 Primary Pain Location: Knee Pain Orientation: Right Pain Descriptors: Sharp Alleviating Factors: Rest documented in this encounter Plan of Treatment Upcoming Encounters Date Type Specialty Care Team Description 02/17/2022 Office Visit Pain & [place] [address] [place], [place] [address] (Wo rk) documented as of this encounter Results XR Knee Bilateral 1/2 [...] this encounter Visit Diagnoses Diagnosis Knee pain - Primary Pain in joint, lower leg S/P ACL reconstruction Other postprocedural status DJD (degenerative joint disease) of knee Osteoarthrosis, unspecified whether gene ralized or localized, lower leg S/P meniscectomy Other postprocedural status Knee pain Pain in joint, lower leg documented in this encounter Care Teams Tnt Powder Worker Relationship Specialty Start Date End Date Verified, No Ref-Primary PCP - General 10/01/14 Tony Gray MD Referring Physician Orthopedics 10/01/14 Conner Harper MD MD Orthopedics 10/01/14 [address] [facility] [address] [place] [address] documented as of this encounter
--- OUTSIDE RECORDS SUMMARY | 2022-01-27 10:20 | XMS_ITS | Encounter Summary ---
:1955 Author Organization [place] Address [address] [place] [address] Care Team Providers Name Role Phone Verified, No Ref-Primary Primary Care Provider Unavailable Tony Gray MD Unavailable Conner Harper MD Unavailable Marlee Coles MD Primary Care Provider [phone] Reason for Visit Reason Comments Medication Problem Encounter Details Date Type Department Care Team Description 10/28/2014 Communication - [facility] Problem [facility] Marivel Hernadez PA-C [address] [place] [phone] [place], [place] [phone] [address] Social History Tobacco Use Types Packs/Day Years Used Date Never Assessed Sex Assigned at Date Recorded Not on file documented as of this encounter Plan of Treatment Upcoming Encounters Date Type Specialty Care Team Description 02/17/2022 Office Visit Pain & [place] [address] [place], [place] [address] (Wo rk) documented as of this encounter Visit Diagnoses Diagnosis 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
--- OUTSIDE RECORDS SUMMARY | 2022-01-27 10:20 | XMS_ITS | Encounter Summary ---
:1955 Author Organization [place] Address [address] [place] [address] Care Team Providers Name Role Phone Verified, No Ref-Primary Primary Care Provider Unavailable Tony Gray MD Unavailable Conner Harper MD Unavailable Marlee Coles MD Primary Care Provider [phone] Ashish Alexander Primary Care Provider Unavailable Encounter Details Date Type Department Care Team Description 07/02/2014 [facility] Provider, [address] [address] Social History Tobacco Use Types Packs/Day Years Used Date Never Assessed Sex Assigned at Date Recorded Not on file documented as of this encounter Progress Notes Historical Provider - 07/02/2014 11:26 AM CST Mailed patient's scripts from today's visit [facility] Address is in specialty comments. documented in this encounter Plan of Treatment Upcoming Encounters Date Type Specialty Care Team Description 02/17/2022 Office Visit Pain & [place] [address] [place], [place] [address] (Wo rk) documented as of this encounter Visit Diagnoses Not on filedocumented in this encounter Care Teams Agency Appointments Supervisor Relationship Specialty Start Date End Date Verified, No Ref-Primary PCP - General 10/01/14 Marlee Coles MD PCP - General 02/10/15 05/18/21 [facility] [place] [address] [address] [address] Ashish Alexander PCP - General 12/05/13 09/30/14 Tony Gray MD Referring Physician Orthopedics 10/01/14 Conner Harper MD MD Orthopedics 10/01/14 [facility] [place], [place] [address] [place] [address] documented as of this encounter
--- OUTSIDE RECORDS SUMMARY | 2022-01-27 10:20 | XMS_ITS | Encounter Summary ---
:1955 Author Organization [place] Address [address] [facility] [place] [address] Care Team Providers Name Role Phone Verified, No Ref-Primary Primary Care Provider Unavailable Tony Gray MD Unavailable Conner Harper MD Unavailable Marlee Coles MD Primary Care Provider Ashish Alexander Primary Care Provider Unavailable Encounter Details Date Type Department Care Team Description 08/07/2014 Ambulatory - [facility] B, PA-C [address] [place] [phone] [place], [place] [phone] [address] Social History Tobacco Use Types Packs/Day Years Used Date Never Assessed Sex Assigned at Date Recorded Not on file documented as of this encounter Plan of Treatment Upcoming Encounters Date Type Specialty Care Team Description 02/17/2022 Office Visit Pain & [place] [address] [place], [place] [address] (Wo rk) documented as of this encounter Visit Diagnoses Not on filedocumented in this encounter Care Teams Psychologist Experimental Relationship Specialty Start Date End Date Verified, No Ref-Primary PCP - General 10/01/14 Marlee Coles MD PCP - General 02/10/15 05/18/21 [place] [address] [address] [place] [address] Ashish Alexander PCP - General 12/05/13 09/30/14 Tony Gray MD Referring Physician Orthopedics 10/01/14 Conner Harper MD MD Orthopedics 10/01/[address] [place], [place] [address] documented as of this encounter
--- OUTSIDE RECORDS SUMMARY | 2022-01-27 10:20 | XMS_ITS | Encounter Summary ---
:1955 Author Organization [place] Address [address] [facility] [place] [address] Care Team Providers Name Role Phone Verified, No Ref-Primary Primary Care Provider Unavailable Tony Gray MD Unavailable Conner Harper MD Unavailable Malree Coles MD Primary Care Provider [phone] Ashish Alexander Primary Care Provider Unavailable Reason for Visit Reason Comments Other Other Encounter Details Date Type Department Care Team Description 09/18/2014 Communication - [facility], Other (Other) [facility] Marivel Hernadez PA-C [address] [place] [phone] [place], [place] [phone] [address] Social History Tobacco Use Types Packs/Day Years Used Date Never Assessed Sex Assigned at Date Recorded Not on file documented as of this encounter Plan of Treatment Upcoming Encounters Date Type Specialty Care Team Description 02/17/2022 Office Visit Pain & [place] [address] [place], [place] [address] (Wo rk) documented as of this encounter Visit Diagnoses Not on filedocumented in this encounter Care Teams Small Appliance Assembly Supervisor Relationship Specialty Start Date End Date Verified, No Ref-Primary PCP - General 10/01/14 Marlee Coles MD PCP - General 02/10/15 05/18/21 [place] [address] [address] [address] Ashish Alexander PCP - General 12/05/13 09/30/14 Tony Gray MD Referring Physician Orthopedics 10/01/14 Conner Harper MD MD Orthopedics 10/01/14 [facility] [place], [place] [address] [place], [place] [address] documented as of this encounter
--- OUTSIDE RECORDS SUMMARY | 2022-01-27 10:20 | XMS_ITS | Encounter Summary ---
:1955 Author Organization [place] Address [address] [facility] [place] [address] Care Team Providers Name Role Phone Verified, No Ref-Primary Primary Care Provider Unavailable Tony Gray MD Unavailable Conner Harper MD Unavailable Marlee Coles MD Primary Care Provider Ashish Alexander Primary Care Provider Unavailable Reason for Visit Reason Comments Medication Problem Encounter Details Date Type Department Care Team Description 08/07/2014 Communication - [facility] Hope Cavazosa titiffanie Problem [facility] Marivel Hernadez PA-C [address] [place] [phone] [place], [place] [phone] [address] Social History Tobacco Use Types Packs/Day Years Used Date Never Assessed Sex Assigned at Date Recorded Not on file documented as of this encounter Plan of Treatment Upcoming Encounters Date Type Specialty Care Team Description 02/17/2022 Office Visit Pain & [place] [address] [place], [place] [address] (Wo rk) documented as of this encounter Visit Diagnoses Diagnosis Degeneration of lumbar or lumbosacral in tervertebral disc documented in this encounter Care Teams Fortune Teller Relationship Specialty Start Date End Date Verified, No Ref-Primary PCP - General 10/01/14 Marlee Coles MD PCP - General 02/10/15 05/18/21 [place] [address] [address] [address] Ashish Alexander PCP - General 12/05/13 09/30/14 Tony Gray MD Referring Physician Orthopedics 10/01/14 Conner Harper MD MD Orthopedics 10/01/14 [facility] [place], [place] [address] [place], [place] [address] documented as of this encounter
--- OUTSIDE RECORDS SUMMARY | 2022-01-27 10:20 | XMS_ITS | Encounter Summary ---
:1955 Author Organization [place] Address [address] [facility] [place] [address] Care Team Providers Name Role Phone Verified, No Ref-Primary Primary Care Provider Unavailable Tony Gray MD Unavailable Conner Harper MD Unavailable Marlee Coles MD Primary Care Provider Reason for Visit Reason Comments Medication Refill Encounter Details Date Type Department Care Team Description 02/03/2015 Communication - [facility] Provider, [facility] [address] [place] [address] Social History Tobacco Use Types Packs/Day Years Used Date Never Assessed Sex Assigned at Date Recorded Not on file documented as of this encounter Plan of Treatment Upcoming Encounters Date Type Specialty Care Team Description 02/17/2022 Office Visit Pain & [place] [address] [place], [place] [address] (Wo rk) documented as of this encounter Visit Diagnoses Diagnosis Degeneration of lumbar or lumbosacral in tervertebral disc documented in this encounter Care Teams Electronics Maintenance Technician Relationship Specialty Start Date End Date Verified, No Ref-Primary PCP - General 10/01/14 Marlee Coles MD PCP - General 02/10/15 05/18/21 [facility] [place] [address] [address] [place] [address] Tony Gray MD Referring Physician Orthopedics 10/01/14 Conner Harper MD MD Orthopedics 10/01/14 [address] [facility] [address] [place], [place] [address] documented as of this encounter
--- OUTSIDE RECORDS SUMMARY | 2022-01-27 10:20 | XMS_ITS | Encounter Summary ---
:1955 Author Organization [place] Address [address] [facility] [place] [address] Care Team Providers Name Role Phone Verified, No Ref-Primary Primary Care Provider Unavailable Tony Gray MD Unavailable Conner Harper MD Unavailable Reason for Visit Reason Comments Back Pain Encounter Details Date Type Department Care Team Description 12/16/[address] [facility] onic pain syndrome; [facility] Degeneration of lumbar or lumbosacral in tervertebral disc; [address] [place] [address] on of thoracic or thoracolumbar intervertebral disc; [facility] Opioid type dependence, continuous (H) [place], [place] Sy [phone] [place], [place] [phone] [address] Social History Tobacco Use Types Packs/Day Years Used Date Never Assessed Sex Assigned at Date Recorded Not on file documented as of this encounter Last Filed Vital Signs Vital Sign Reading Time Taken Comments Blood Pressure - - Pulse - - Temperature - - Respiratory Rate - - Oxygen Saturation - - Inhaled Oxygen Concentration - - Weight 102.1 kg (225 lb) 12/16/2014 10:19 AM CDT Height 170.2 cm (5' 7) 12/16/2014 10:19 AM CDT Body Mass Index 35.24 12/16/2014 10:19 AM CDT documented in this encounter Medications [...] encounter Progress Notes Marivel Cavazos PA-C - 12/16/2014 10:23 AM CDT PAIN CENTER PROGRESS NOTE Subjective: [...] Use Pain location and description: 5/10 constant burning, aching, throbbing, stabbing pain in mid and low back. Function rated 8. Last visit pain rated 8/10. Radiation of pain: Buttocks bilaterally, mid back pain radiates into left chest intermittently underneath breast. Paresthesias, numbness, weakness: Legs bilaterally Gait disturbance: None reported Exacerbating factors: bending yesterday to tie shoes, prolonged sitting, being without pain medications Alleviating factors: Pain medications, standing or changing positions Associated symptoms: Denies Adverse effects of medications: xerostomia. Denies constipation, rash. Current treatment efficacy: Good. Current treatment compliance: Good; denies self-escalation of doses and no early refill requests. UDS appropriate. Keeps appointment follow-ups with pain center. States prior to yesterday his pain was better managed. He states he bought a new bed and unsure if this related. He had it for 3-4 months now. Unsure if warmer weather contributes and in a better mood when weather is nicer and walking a little outside. He states he bent over to tie his shoes yesterdayand pain increased today without red flag or radiculopathy symptoms. He reports this happens on occasion. He states when bending he does try to use proper body mechanics but never quite does the same thing twice. He asks about taking medrol dose pack for pain flare as this has worked for him well in the past; he took last in August 2014. He is taking Ibuprofen 600 mg at night. Review of Systems Constitutional: Sleep disturbance. Denies [...] suicidal ideation, substance use/abuse. Objective: Filed Vitals: 12/16/14 1019 BP: 149/84 Pulse: 66 Height: 5' 7 (1.702 m) Weight: 225 [...] very stable and tolerable since last visit. Has flareof pain from bending yesterday and will utilize Ibuprofen maximum 600 mg QID prn for 1 week to see if this will calm things down. Discussed not using more than 2 medrol dose packs in 12 month period, he took last in 08/2014. Plan: Continue Opana 15 mg every 12 hours. Continue Tramadol and Methocarbamol as prescribed. Take Ibuprofen 600 mg up to 4 times a day for the next week (with food) to help with increased back pain from yesterday. Also continue to use ice several times a day. You may take Amitriptyline as needed for sleep but patient is not taking daily due to side effects. Please call our Nurse Triage phone # seven days in advance for next month's opioid prescription refill to be sent electronically to your pharmacy. Follow-up in 8 weeks to evaluate the above plan of care. Marivel Cavazos PA-C [facility] documented in this encounter Plan of Treatment Upcoming Encounters Date Type Specialty Care Team Description 02/17/2022 Office Visit Pain & [place] [address] [place], [place] [address] (Wo rk) documented as of this encounter Visit Diagnoses Diagnosis Chronic pain syndrome Degeneration of lumbar or lumbosacral in tervertebral disc Degeneration of thoracic or thoracolumba r intervertebral disc Opioid type dependence, continuous (H) Opioid type dependence, continuous documented in this encounter Care Teams Supervisor Dock Relationship Specialty Start Date End Date Verified, No Ref-Primary PCP - General 10/01/14 Tony Gray MD Referring Physician Orthopedics 10/01/14 Conner Harper MD MD Orthopedics 10/01/[address] [place] [address] documented as of this encounter
--- OUTSIDE RECORDS SUMMARY | 2022-01-27 10:20 | XMS_ITS | Encounter Summary ---
:1955 Author Organization [place] Address [address] [facility] [place] [address] Care Team Providers Name Role Phone Tony Gray MD Unavailable Conner Harper MD Unavailable Marlee Coles MD Primary Care Provider [phone] Reason for Visit Reason Comments Back Pain Abdominal Pain Encounter Details Date Type Department Care Team Description 06/09/2015 Hospital Encounter [facility] onic pain syndrome; [facility] Marivel Hernade[facility] PA-C Degeneration of lumbar or lumbosacral in tervertebral disc; [address] Degenerati on of thoracic or thoracolumbar intervertebral disc; [facility] Opioid type dependence, continuous (H) [place] [facility] [address] [place], [place] [phone] [address] Social History Tobacco Use Types Packs/Day Years Used Date Never Assessed Sex Assigned at Date Recorded Not on file documented as of this encounter Last Filed Vital Signs Vital Sign Reading Time Taken Comments Blood Pressure - - Pulse - - Temperature - - Respiratory Rate - - Oxygen Saturation - - Inhaled Oxygen Concentration - - Weight 101.2 kg (223 lb) 06/09/2015 9:56 AM DIRECTOR DIETETICS DEPARTMENT Height 170.2 cm (5' 7) 06/09/2015 9:56 AM DIRECTOR DIETETICS DEPARTMENT Body Mass Index 34.93 06/09/2015 9:56 AM DIRECTOR DIETETICS DEPARTMENT documented in this encounter Medications at Time [...] encounter Progress Notes Marivel Cavazos PA-C - 06/09/2015 10:11 AM [facility] PROGRESS NOTE Subjective: [...] Chronic pain syndrome 2. Lumbar Disc Degeneration Pain location and description: 03/28 constant burning, aching, stabbing pain in mid and low back, abdomen. Function rated 6. Last visit pain rated 5/10. Radiation of [...] Has stomach pain, not associated with medications. He states he weaned off opana and tramadol for 4 days to make sure the medication was not causing his symptom. Adverse effects of medications: xerostomia. Denies constipation, rash. Current treatment efficacy: Good. States some days better and some days worse. Started walking with his dog again, can walk up to 12 blocks. Current treatment compliance: Good; denies self-escalation of doses and no early refill requests. UDS appropriate. Keeps appointment follow-ups with pain center. Does walking and stretching exercise inthe morning. States his pain has been elevated for several weeks since last seen. He denies any triggers or new injury for this. He continues to have abdominal pain that he assumed was referred from his lower back.He was evaluated at [facility] and was treated for suspected ulcer with medications. This regimen wasn't working so then had labs that returned normal. He then saw GI specialist and has rupture in his abdomen from gallbladder surgery. He states the plan is to have ventral hernia surgical repair which is scheduled on 07/01/15. He feels a majority of his pain is abdominal at this point and that is why his pain score is elevated. Review of Systems Constitutional: Sleep disturbance. Denies [...] suicidal ideation, substance use/abuse. Objective: Filed Vitals: 06/09/15 0956 BP: 135/78 Pulse: 74 Height: 5' 7 (1.702 m) Weight: 223 lb (101.152 kg) PainSc: 10-Worst pain ever Physical Exam Constitutional- General appearance: Well developed, uncomfortable, overweight, and appearance reflects stated age. Standing for entire visit. Psychiatric- Judgment and [...] No joint swelling, erythema, or warmth. Lab: Reviewed UDS from 04/08/15 appropriate for prescribed medications. Assessment: Tremaine Plunkett is a 59 y.o. male seen in clinic today for chronic thoracic and lumbar degeneration,opioid dependence. He reports spine pain symptoms stable. His pain is rated higher today as he is pending surgery to repair an abdominal hernia and we discuss today and postoperative pain management should be from his surgeon as he is unsure if he will be kept inpatient and also this is not part of his work comp claim. He is to notify us if any additional opioids are prescribed and filled per his opioid agreement. Plan: Continue Opana 15 mg every 12 [...] to evaluate the above plan of care. Patient scheduled for abdominal surgery 07/01/15; please notify us if any additional pain medications given for surgery per your agreement. Opioid agreement renewed today. Marivel Cavazos PA-C [facility] CTOR DIETETICS DEPARTMENT documented in this encounter Plan of Treatment Upcoming Encounters Date Type Specialty Care Team Description 02/17/2022 Office Visit Pain & [place] [address] [place], [place] [address] (Wo rk) documented as of this encounter Visit Diagnoses Diagnosis Chronic pain syndrome Degeneration of lumbar or lumbosacral in tervertebral disc Degeneration of thoracic or thoracolumba r intervertebral disc Opioid type dependence, continuous (H) Opioid type dependence, continuous documented in this encounter Care Teams Guide Travel Relationship Specialty Start Date End Date Marlee Coles MD PCP - General 02/10/15 05/18/21 [facility] [place] [address] [address] Tony Gray MD Referring Physician Orthopedics 10/01/14 Conner Harper MD MD Orthopedics 10/01/14 [address] [facility] [address] [place] [address] documented as of this encounter
--- OUTSIDE RECORDS SUMMARY | 2022-01-27 10:20 | XMS_ITS | Encounter Summary ---
:1955 Author Organization [place] Address [address] [place] [address] Care Team Providers Name Role Phone Verified, No Ref-Primary Primary Care Provider Unavailable Tony Gray MD Unavailable Conner Harper MD Unavailable Marlee Coles MD Primary Care Provider [phone] Ashish Alexander Primary Care Provider Unavailable Reason for Visit Reason Comments Medication Refill Encounter Details Date Type Department Care Team Description 09/30/2014 [facility] Jessica, RN [address] [facility] [address] [place] [address] Social History Tobacco Use Types Packs/Day Years Used Date Never Assessed Sex Assigned at Date Recorded Not on file documented as of this encounter Plan of Treatment Upcoming Encounters Date Type Specialty Care Team Description 02/17/2022 Office Visit Pain & [place] [address] [place], [place] [address] (Wo rk) documented as of this encounter Visit Diagnoses Diagnosis Degeneration of lumbar or lumbosacral in tervertebral disc documented in this encounter Care Teams News Gathering Technician Relationship Specialty Start Date End Date Verified, No Ref-Primary PCP - General 10/01/14 Marlee Coles MD PCP - General 02/10/15 05/18/21 [place] [address] [address] [place] [address] Ashish Alexander PCP - General 12/05/13 09/30/14 Tony Gray MD Referring Physician Orthopedics 10/01/14 Conner Harper MD MD Orthopedics 10/01/14 [address] [facility] [address] [place] [address] documented as of this encounter
--- OUTSIDE RECORDS SUMMARY | 2022-01-27 10:20 | XMS_ITS | Encounter Summary ---
:1955 Author Organization [place] Address [address] [facility] [place] [address] Care Team Providers Name Role Phone Tony Gray MD Unavailable Conner Harper MD Unavailable Marlee Coles MD Primary Care Provider Reason for Visit Reason Comments Medication Refill Encounter Details Date Type Department Care Team Description 09/28/2015 Communication - [facility] Provider, Medica tion [facility] [address] [place] [address] Social History Tobacco Use Types Packs/Day Years Used Date Never Assessed Sex Assigned at Date Recorded Not on file documented as of this encounter Miscellaneous Notes Addendum Note - Rayo Butler - 09/30/2015 10:52 AM CDT Addendum Note by Rayo Butler CMA at 09/30/2015 10:52 AM Author: Rayo Butler CMA Service: -- Author Type: Security Control Center Operator Filed: 09/30/2015 10:52 AM Encounter Date: 09/28/2015 Status: Signed Marble Setter: Rayo Butler CMA (Security Control Center Operator) Addended by: RAYO BUTLER on: 09/30/2015 10:52 AM Modules accepted: Orders documented in this encounter Plan of Treatment Upcoming Encounters Date Type Specialty Care Team Description 02/17/2022 Office Visit Pain & [place] [address] [place], [place] [address] (Wo rk) documented as of this encounter Visit Diagnoses Diagnosis Degeneration of lumbar or lumbosacral in tervertebral disc documented in this encounter Care Teams Smart Energy Specialist Relationship Specialty Start Date End Date Marlee Coles MD PCP - General 02/10/15 05/18/21 [place] [address] [address] [id number] Tony Gray MD Referring Physician Orthopedics 10/01/14 Conner Harper MD MD Orthopedics 10/01/14 [address] [facility] [address] [place], [place] [id number] documented as of this encounter
--- OUTSIDE RECORDS SUMMARY | 2022-01-27 10:20 | XMS_ITS | Encounter Summary ---
:1955 Author Organization [place] Address [address] [facility] [place] [address] Care Team Providers Name Role Phone Verified, No Ref-Primary Primary Care Provider Unavailable Tony Gray MD Unavailable Conner Harper MD Unavailable Encounter Details Date Type Department Care Team Description 12/09/2014 Orders Only [facility] Conner Harper, Right knee pain Talya Awad MD (Primary Dx) [address] 1[address], [address] [facility] [phone] Social History Tobacco Use Types Packs/Day Years Used Date Never Assessed Sex Assigned at Date Recorded Not on file documented as of this encounter Plan of Treatment Upcoming Encounters Date Type Specialty Care Team Description 02/17/2022 Office Visit Pain & [place] [address] [place], [place] [address] (Wo rk) documented as of this encounter Visit Diagnoses Diagnosis Right knee pain - Primary Pain in joint, lower leg documented in this encounter Care Teams Cruise Agent Relationship Specialty Start Date End Date Verified, No Ref-Primary PCP - General 10/01/14 Tony Gray MD Referring Physician Orthopedics 10/01/14 Conner Harper MD MD Orthopedics 10/01/14 [facility] [place], [place] [id number] [place] [address] documented as of this encounter
--- OUTSIDE RECORDS SUMMARY | 2022-01-27 10:20 | XMS_ITS | Encounter Summary ---
:1955 Author Organization [place] Address [address] [facility] [place] [address] Care Team Providers Name Role Phone Verified, No Ref-Primary Primary Care Provider Unavailable Tony Gray MD Unavailable Conner Harper MD Unavailable Marlee Coles MD Primary Care Provider [phone] Reason for Visit Reason Comments Other Patient request; Patient req uested records to be sent to Work Comp Encounter Details Date Type Department Care Team Description 10/14/2014 Ambulatory - [facility] Provider, [facility] [address] [place] [phone] Social History Tobacco Use Types Packs/Day Years Used Date Never Assessed Sex Assigned at Date Recorded Not on file documented as of this encounter Progress Notes Historical Provider - 10/14/2014 11:17 AM CDT Called patient today and informed him that medical records will fax copies to Maite Gooden. Jacque Jacobo will take care of faxing records. documented in this encounter Plan of Treatment Upcoming Encounters Date Type Specialty Care Team Description 02/17/2022 Office Visit Pain & [place] [address] [place], [place] [address] (Wo rk) documented as of this encounter Visit Diagnoses Not on filedocumented in this encounter Care Teams Poultry Dressing Worker Relationship Specialty Start Date End Date Verified, No Ref-Primary PCP - General 10/01/14 Marlee Coles MD PCP - General 02/10/15 05/18/21 [place] [address] [address] [facility] [address] [place] [address] Tony Gray MD Referring Physician Orthopedics 10/01/14 Conner Harper MD MD Orthopedics 10/01/14 [facility] [place] [address] [place], [place] [id number] documented as of this encounter
--- OUTSIDE RECORDS SUMMARY | 2022-01-27 10:20 | XMS_ITS | Encounter Summary ---
:1955 Author Organization [place] Address [address] [facility] [place] [address] Care Team Providers Name Role Phone Verified, No Ref-Primary Primary Care Provider Unavailable Tony Gray MD Unavailable Conner Harper MD Unavailable Marlee Coles MD Primary Care Provider Ashish Alexander Primary Care Provider Unavailable Reason for Visit Reason Comments Allergic Reaction Records at the pharmacy stat e pt. is allergic to oxycodone Encounter Details Date Type Department Care Team Description 07/10/2014 Communication - [facility] Karen Cavazos ic Reaction [facility] Marivel Hernadez PA-C (Records at the [address] [place] [address] pharmacy.. [facility] [phone] [place], [place] [phone] [address] Social History Tobacco Use Types Packs/Day Years Used Date Never Assessed Sex Assigned at Date Recorded Not on file documented as of this encounter Plan of Treatment Upcoming Encounters Date Type Specialty Care Team Description 02/17/2022 Office Visit Pain & [place] [address] [place], [place] [address] (Wo rk) documented as of this encounter Visit Diagnoses Not on filedocumented in this encounter Care Teams Resident Manager Relationship Specialty Start Date End Date Verified, No Ref-Primary PCP - General 10/01/14 Marlee Coles MD PCP - General 02/10/15 05/18/21 [facility] [place] [address] [address] [address] Ashish Alexander PCP - General 12/05/13 09/30/14 Tony Gray MD Referring Physician Orthopedics 10/01/14 Conner Harper MD MD Orthopedics 10/01/14 [facility] [place], [place] [address] [place] [address] documented as of this encounter
--- OUTSIDE RECORDS SUMMARY | 2022-01-27 10:20 | XMS_ITS | Encounter Summary ---
:1955 Author Organization [place] Address [address] [facility] [place] [address] Care Team Providers Name Role Phone Verified, No Ref-Primary Primary Care Provider Unavailable Tony Gray MD Unavailable Conner Harper MD Unavailable Reason for Visit Reason Onset Date Comments *-*INCOMING RECORDS*-* 10/02/2014 Encounter Details Date Type Department Care Team Description 10/02/2014 PRE VISIT Orthopaedic Clinic Conner Harper, *-*INCOMING RECORDS*-* [address], [address] [place] [phone] Social History Tobacco Use Types Packs/Day Years Used Date Never Assessed Sex Assigned at Date Recorded Not on file documented as of this encounter Miscellaneous Notes Telephone Encounter - Cely John - 10/09/2014 9:22 AM CDT [facility], will put in ortho patent searcher. Telephone Encounter - Maurice Gordon - 10/03/2014 1:53 PM CDT Received faxed records from [facility], will forward to clinic. Waiting on imaging. Telephone Encounter - Cely John - 10/02/2014 8:55 AM CDT Appt 11/03/2014: [facility]. Faxed request for records and imaging to [facility]. documented in this encounter Plan of Treatment Upcoming Encounters Date Type Specialty Care Team Description 02/17/2022 Office Visit Pain & [place] [address] [place], [place] [address] (Wo rk) documented as of this encounter Visit Diagnoses Not on filedocumented in this encounter Care Teams Home Appraiser Relationship Specialty Start Date End Date Verified, No Ref-Primary PCP - General 10/01/14 Tony Gray MD Referring Physician Orthopedics 10/01/14 Conner Harper MD MD Orthopedics 10/01/14 [facility] [place], [place] [address] [place] [address] documented as of this encounter
--- OUTSIDE RECORDS SUMMARY | 2022-01-27 10:20 | XMS_ITS | Encounter Summary ---
:1955 Author Organization [place] Address [address] [facility] [place] [address] Care Team Providers Name Role Phone Verified, No Ref-Primary Primary Care Provider Unavailable Tony Gray MD Unavailable Conner Harper MD Unavailable Marlee Coles MD Primary Care Provider [phone] Reason for Visit Reason Comments Medication Refill Encounter Details Date Type Department Care Team Description 11/24/2014 Communication - [facility] Provider, [facility]ica tion [facility] [address] [place] [address] Social History Tobacco Use Types Packs/Day Years Used Date Never Assessed Sex Assigned at Date Recorded Not on file documented as of this encounter Plan of Treatment Upcoming Encounters Date Type Specialty Care Team Description 02/17/2022 Office Visit Pain & [place] [address] [place], [place] [address] (Wo rk) documented as of this encounter Visit Diagnoses Diagnosis Degeneration of lumbar or lumbosacral in tervertebral disc documented in this encounter Care Teams Natural Resource Technician Relationship Specialty Start Date End Date Verified, No Ref-Primary PCP - General 10/01/14 Marlee Coles MD PCP - General 02/10/15 05/18/21 [facility] [place] [address] [address] [place] [address] Tony Gray MD Referring Physician Orthopedics 10/01/14 Conner Harper MD MD Orthopedics 10/01/14 [address] [facility] [address] [place], [place] [address] documented as of this encounter
--- OUTSIDE RECORDS SUMMARY | 2022-01-27 10:20 | XMS_ITS | Encounter Summary ---
:1955 Author Organization [place] Address [address] [place] [address] Care Team Providers Name Role Phone Tony Gray MD Unavailable Conner Harper MD Unavailable Marlee Coles MD Primary Care Provider Reason for Visit Reason Comments Medication Problem Encounter Details Date Type Department Care Team Description 06/29/2015 Communication - [facility] Jayna Lopez [facility] [address] [place] [address] Social History Tobacco Use Types Packs/Day Years Used Date Never Assessed Sex Assigned at Date Recorded Not on file documented as of this encounter Miscellaneous Notes Addendum Note - Diya Hawkins - 07/01/2015 9:35 AM CST Addendum Note by Diya Shahid LPN at 07/01/2015 9:35 AM Author: Diya Shahid LPN Service: -- Author Type: Licensed Nurse Filed: 07/01/2015 9:35 AM Encounter Date: 06/29/2015 Status: Signed Winding Rack Operator: Diya Shahid LPN (Licensed Nurse) Addended by: DIYA SHAHID on: 07/01/2015 09:35 AM Modules accepted: Orders TRICIAN CRANE MAINTENANCE documented in this encounter Plan of Treatment Upcoming Encounters Date Type Specialty Care Team Description 02/17/2022 Office Visit Pain & [place] [address] [place], [place] [address] (Wo rk) documented as of this encounter Visit Diagnoses Diagnosis Degeneration of lumbar or lumbosacral in tervertebral disc documented in this encounter Care Teams Engagement Executive Relationship Specialty Start Date End Date Marlee Coles MD PCP - General 02/10/15 05/18/21 [place] [address] [address] [id number] Tony Gray MD Referring Physician Orthopedics 10/01/14 Conner Harper MD MD Orthopedics 10/01/14 [address] [facility] [address] [place], [place] [address] documented as of this encounter
--- OUTSIDE RECORDS SUMMARY | 2022-01-27 10:20 | XMS_ITS | Encounter Summary ---
:1955 Author Organization [place] Address [address] [facility] [place] [address] Care Team Providers Name Role Phone Verified, No Ref-Primary Primary Care Provider Unavailable Tony Gray MD Unavailable Conner Harper MD Unavailable Marlee Coles MD Primary Care Provider Ashish Alexander Primary Care Provider Unavailable Encounter Details Date Type Department Care Team Description 08/14/2014 Ambulatory - [facility] B, PA-C [address] [place] [phone] [place], [place] [phone] Social History Tobacco Use Types Packs/Day Years Used Date Never Assessed Sex Assigned at Date Recorded Not on file documented as of this encounter Plan of Treatment Upcoming Encounters Date Type Specialty Care Team Description 02/17/2022 Office Visit Pain & [place] [address] [place], [place] [address] (Wo rk) documented as of this encounter Visit Diagnoses Not on filedocumented in this encounter Care Teams Test Rider Relationship Specialty Start Date End Date Verified, No Ref-Primary PCP - General 10/01/14 Marlee Coles MD PCP - General 02/10/15 05/18/21 [place] [address] [address] [place] [address] Ashish Alexander PCP - General 12/05/13 09/30/14 Tony Gray MD Referring Physician Orthopedics 10/01/14 Conner Harper MD MD Orthopedics 10/01/[address] [place], [place] [address] documented as of this encounter
--- OUTSIDE RECORDS SUMMARY | 2022-01-27 10:20 | XMS_ITS | Encounter Summary ---
:1955 Author Organization [place] Address [address] [facility] [place] [address] Care Team Providers Name Role Phone Verified, No Ref-Primary Primary Care Provider Unavailable Tony Gray MD Unavailable Conner Harper MD Unavailable Marlee Coles MD Primary Care Provider [phone] Ashish Alexander Primary Care Provider Unavailable Reason for Visit Reason Comments Medication Problem Encounter Details Date Type Department Care Team Description 08/12/2014 [facility] Hope Cavazosa titiffanie Problem Pending sale to [facility] Marivel Hernadez PA-C [address] [place] [phone] [place], [place] [phone] Social History Tobacco Use Types Packs/Day Years Used Date Never Assessed Sex Assigned at Date Recorded Not on file documented as of this encounter Plan of Treatment Upcoming Encounters Date Type Specialty Care Team Description 02/17/2022 Office Visit Pain & [place] [address] [place], [place] [address] (Wo rk) documented as of this encounter Visit Diagnoses Not on filedocumented in this encounter Care Teams District Extension Service Agent Relationship Specialty Start Date End Date Verified, No Ref-Primary PCP - General 10/01/14 Marlee Coles MD PCP - General 02/10/15 05/18/21 [place] [address] [address] [address] Ashish Alexander PCP - General 12/05/13 09/30/14 Tony Gray MD Referring Physician Orthopedics 10/01/14 Conner Harper MD MD Orthopedics 10/01/[address] [facility] [place], [place] [phone] [place], [place] [address] documented as of this encounter
--- OUTSIDE RECORDS SUMMARY | 2022-01-27 10:20 | XMS_ITS | Encounter Summary ---
:1955 Author Organization [place] Address [address] [place] [address] Care Team Providers Name Role Phone Verified, No Ref-Primary Primary Care Provider Unavailable Tony Gray MD Unavailable Conner Harper MD Unavailable Marlee Coles MD Primary Care Provider Ashish Alexander Primary Care Provider Unavailable Encounter Details Date Type Department Care Team Description 08/01/2014 [facility] Jessica, RN [address] [place] [address] Social History Tobacco Use Types Packs/Day Years Used Date Never Assessed Sex Assigned at Date Recorded Not on file documented as of this encounter Plan of Treatment Upcoming Encounters Date Type Specialty Care Team Description 02/17/2022 Office Visit Pain & [place] [address] [place], [place] [address] (Wo rk) documented as of this encounter Visit Diagnoses Not on filedocumented in this encounter Care Teams Clinical Services Manager Relationship Specialty Start Date End Date Verified, No Ref-Primary PCP - General 10/01/14 Marlee Coles MD PCP - General 02/10/15 05/18/21 [place] [address] [address] [address] Ashish Alexander PCP - General 12/05/13 09/30/14 Tony Gray MD Referring Physician Orthopedics 10/01/14 Conner Harper MD MD Orthopedics 10/01/14 [address] [facility] [address] [place] [address] documented as of this encounter
--- OUTSIDE RECORDS SUMMARY | 2022-01-27 10:20 | XMS_ITS | Encounter Summary ---
:1955 Author Organization [place] Address [address] [facility] [place] [address] Care Team Providers Name Role Phone Verified, No Ref-Primary Primary Care Provider Unavailable Tony Gray MD Unavailable Conner Harper MD Unavailable Marlee Coles MD Primary Care Provider Reason for Visit Reason Comments Medication Refill Encounter Details Date Type Department Care Team Description 10/27/2014 [facility] Rayo Butler [facility] [place] [address] [place] [address] Social History Tobacco Use Types Packs/Day Years Used Date Never Assessed Sex Assigned at Date Recorded Not on file documented as of this encounter Plan of Treatment Upcoming Encounters Date Type Specialty Care Team Description 02/17/2022 Office Visit Pain & [place] [address] [place], [place] [address] (Wo rk) documented as of this encounter Visit Diagnoses Diagnosis Degeneration of lumbar or lumbosacral in tervertebral disc documented in this encounter Care Teams Air Traffic Instructor Relationship Specialty Start Date End Date Verified, No Ref-Primary PCP - General 10/01/14 Marlee Coles MD PCP - General 02/10/15 05/18/21 [place] [address] [address] [place] [address] Tony Gray MD Referring Physician Orthopedics 10/01/14 Conner Harper MD MD Orthopedics 10/01/14 [address] [facility] [address] [place], [place] [address] documented as of this encounter
--- OUTSIDE RECORDS SUMMARY | 2022-01-27 10:20 | XMS_ITS | Encounter Summary ---
:1955 Author Organization [place] Address [address] [place] [address] Care Team Providers Name Role Phone Ashish Alexander Primary Care Provider Unavailable Reason for Visit Reason Comments Back Pain Encounter Details Date Type Department Care Team Description 08/26/2014 Hospital Encounter [facility] Terrence Cavazos onic pain; [place] Marivel Hernadez PA-C Degeneration of lumbar or lumbosacral in tervertebral disc; [address] Degenerati on of thoracic or thoracolumbar intervertebral disc; [facility] Opioid type dependence, continuous (H) [facility] [address] [address] [place], [place] [phone] [address] Social History Tobacco Use Types Packs/Day Years [...] - - Height 170.2 cm (5' 7) 08/26/2014 10:25 AM CDT Body Mass Index - - documented in this encounter Progress Notes Marivel Cavazos PA-C - 08/26/2014 10:23 AM CDT PAIN CENTER PROGRESS NOTE [...] steroid injection. Major issues: 1. Chronic pain 2. Lumbar Disc Degeneration 3. Degeneration of lumbar or lumbosacral intervertebral disc 4. Thoracic Disc Degeneration 5. Opioid Dependence With Continuous Use 6. Opioid type dependence, continuous Pain location and description: 5/10 constant variable pain in mid and low back Radiation of pain: Legs bilaterally, mid back pain radiates into left chest intermittently underneath breast. Paresthesias, numbness, weakness: Legs bilaterally Gait disturbance: None reported Exacerbating factors: Cold weather, prolonged sitting Alleviating factors: Pain medications, standing or changing positions Associated symptoms: Denies Adverse effects of medications: Rash, resolved since last visit. Current treatment efficacy: Good Current treatment compliance: Good; denies self-escalation of doses and no early refill requests. UDS appropriate. Keeps appointment follow-ups with pain center. Last visit we discussed other options for long-acting pain control, and he has failed methadone and morphine in the past. He was willing to trial OxyContin even though his allergy list has Percocet listed; he states it has been so long since he took that he cannot even recall his reaction. He states since then he has not had WC approve OxyContin fill. He has continued Opana ER, but also has difficulty getting this filled and had numerous calls to phone triage this past month. He had run out of Opanafor over one week as his medication was mailed on 08/19/14 but did not arrive until 08/22/14 and developed withdrawal symptoms of diaphoresis, diarrhea, no vomiting, no headache and states his pain wasso severe he would rather go out and kill himself. He states he now has it filled and he called his oceanography teacher and he is now [facility] as mail order was taking too long to receiveand spent hours on the telephone trying to get it straight. He states his pain is still elevated from this and notes medrol titration pack has worked in the past to help reduce pain symptoms and is wond ering if he can take it; he denies any oral steroid use within the past 6 months. Review of Systems Constitutional: Sleep disturbance. Denies [...] suicidal ideation, substance use/abuse. Objective: Filed Vitals: 08/26/14 1025 BP: 160/81 Pulse: 83 Temp: 98.6 ??F (37 ??C) Height: 5' 7 (1.702 m) PainSc: 8 [...] on 03/12/14 was reviewed and was appropriate. Will recollect UDS today expecting positive for oxymorphone and tramadol. Assessment: Tremaine Plunkett is a 58 y.o. male seen in clinic today for chronic thoracic and lumbar degeneration.He reports his pain symptoms are not stable due to recent interruption in opioid therapy. Plan: Prescribed 28 days of Opana, Tramadol with no refills to [facility]. Start Medrol Dose Pack as prescribed for increased pain. Discussed possible side effects today. Continue Amitriptyline and Methocarbamol as prescribed. UDS today for medication monitoring. Follow-up in 7 weeks to evaluate the above plan of care. Marivel Cavazos PA-C [facility] documented in this encounter Plan of Treatment Upcoming Encounters Date Type Specialty Care Team Description 02/17/2022 Office Visit Pain & [place] [address] [place], [place] [address] (Wo rk) documented as of this encounter Visit Diagnoses Diagnosis Chronic pain Other chronic pain Degeneration of lumbar or lumbosacral in tervertebral disc Degeneration of thoracic or thoracolumba r intervertebral disc Opioid type dependence, continuous (H) Opioid type dependence, continuous documented in this encounter Care Teams Leasing Specialist Relationship Specialty Start Date End Date Ashish Alexander PCP - General 12/05/13 09/30/14 documented as of this encounter
--- OUTSIDE RECORDS SUMMARY | 2022-01-27 10:20 | XMS_ITS | Encounter Summary ---
:1955 Author Organization [place] Address [address] [facility] [place] [address] Care Team Providers Name Role Phone Verified, No Ref-Primary Primary Care Provider Unavailable Tony Gray MD Unavailable Conner Harper MD Unavailable Marlee Coles MD Primary Care Provider Ashish Alexander Primary Care Provider Unavailable Reason for Visit Reason Comments Medication Problem Encounter Details Date Type Department Care Team Description 07/24/2014 [facility] Hope Cavazosa titiffanie Problem [facility] Marivel Hernadez PA-C [address] [place] [address] [place], [place] [phone] Social History Tobacco Use Types Packs/Day Years Used Date Never Assessed Sex Assigned at Date Recorded Not on file documented as of this encounter Plan of Treatment Upcoming Encounters Date Type Specialty Care Team Description 02/17/2022 Office Visit Pain & [place] [address] [place], [place] [address] (Wo rk) documented as of this encounter Visit Diagnoses Not on filedocumented in this encounter Care Teams Disaster Recovery Specialist Relationship Specialty Start Date End Date Verified, No Ref-Primary PCP - General 10/01/14 Marlee Coles MD PCP - General 02/10/15 05/18/21 [place] [address] [address] [address] Ashish Alexander PCP - General 12/05/13 09/30/14 Tony Gray MD Referring Physician Orthopedics 10/01/14 Conner Harper MD MD Orthopedics 10/01/14 [facility] [place], [place] [id number] [place], [place] [address] documented as of this encounter
--- OUTSIDE RECORDS SUMMARY | 2022-01-27 10:20 | XMS_ITS | Encounter Summary ---
:1955 Author Organization [place] Address [address] [facility] 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; [address] [place] [address] [place] Degenerati on of thoracic or thoracolumbar intervertebral disc; [address] [facility] Opioid type dependence, continuous (H) [facility] [address] [address] [place], [place] [phone] [address] Social History Tobacco Use Types Packs/Day Years Used Date Never Assessed Sex Assigned at Date Recorded Not on file documented as of this encounter Last Filed Vital Signs Vital Sign Reading Time Taken Comments Blood Pressure - - Pulse - - Temperature - - Respiratory Rate - - Oxygen Saturation - - Inhaled Oxygen Concentration - - Weight 101.2 kg (223 lb) 08/04/2015 10:12 AM MANUFACTURER REPRESENTATIVE Height 170.2 cm (5' 7) 08/04/2015 10:12 AM MANUFACTURER REPRESENTATIVE Body Mass Index 34.93 08/04/2015 10:12 AM MANUFACTURER REPRESENTATIVE documented in this encounter Medications at Time [...] encounter Progress Notes Marivel Cavazos PA-C - 08/04/2015 10:10 AM CST PAIN CENTER PROGRESS NOTE [...] Pain location and description: 5/10 constant sharp stabbing pain in mid and low back, abdomen. Function rated 5. Last visit pain rated 10/10. Radiation of pain: Buttocks bilaterally, mid back [...] effects of medications: xerostomia. Denies constipation, pruritus, rash. Current treatment efficacy: Good. Pain rated between 4-5/10 which is tolerable. States some days better and some days worse. Current treatment compliance: Good; denies self-escalation of doses and no early refill requests. UDS appropriate. Keeps appointment follow-ups with pain center. Does walking and stretching exercise in the morning. He had ventral hernia surgical repair on 07/01/15. He states surgery went well and he didn't have to have mesh placed; he has had follow-up with surgeon Dr. Mccarty and was told no complications. He has noticed pain and hardness near umbilical incision in area past 2 weeks; he did call surgeon and was told to wait 2-3 more weeks as some of this may resolve with time. He was prescribed opioid but he cannot recall name or dose; he states it was for 1 week and has discontinued taking. He states his back pain was not affected by surgery or recovery. He states he did have more sitting during this time and his buttocks and legs are going numb from prolonged sitting. He states he has a heated garage so he does go out there to walk around and let his dog outside. He denies new back symptoms or any recent injuries or concerns. He reports he plans to see Dr. Steinberg [facility] forannual visit coming up soon just to review his plan of care. Review of Systems Constitutional: Sleep disturbance. Denies [...] suicidal ideation, substance use/abuse. Objective: Filed Vitals: 08/04/15 1012 BP: 149/95 Pulse: 78 Height: 5' 7 (1.702 m) Weight: 223 lb (101.152 kg) PainSc: 5 Physical Exam Constitutional- General [...] from 04/08/15 appropriate for prescribed medications. [place] [facility] reviewed on 08/04/15 with percocet 5/325 mg #40 filled on 07/01/[address] Christiano Mccarty appropriate per patient history. Assessment: Tremaine Plunkett is a 59 y.o. male seen in clinic today for chronic thoracic and lumbar degeneration,opioid dependence. He reports spine pain symptoms stable. His pain is rated higher today as he had recent surgery to repair an abdominal hernia which he is following with Dr. Mccarty. Plan: Continue Opana 15 mg every 12 hours. Continue Tramadol 100 mg up to 3 times per day (max 6 tablets per day) as needed for pain. [facility] sent [facility] to [facility] today. We will have them void hard copy that was mailed as it has not arrived yet. Continue Synera, Methocarbamol, Amitriptyline as prescribed. Please call our Nurse Triage phone # [phone] days in advance for next month's opioid prescription refill to be sent electronically to your pharmacy. See Dr. Steinberg for follow-up of back symptoms. See surgeon as needed for follow- up on hernia repair. Follow-up in 8 weeks to evaluate the above plan of care. 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
--- OUTSIDE RECORDS SUMMARY | 2022-01-27 10:20 | XMS_ITS | Encounter Summary ---
:1955 Author Organization [place] Address [address] [place] [address] Care Team Providers Name Role Phone Tony Gray MD Unavailable Conner Harper MD Unavailable Marlee Coles MD Primary Care Provider Reason for Visit Reason Comments Medication Refill Encounter Details Date Type Department Care Team Description 08/25/2015 [facility] Marivel Hernadez PA-C [address] [place] [address] [place], [place] [phone] Social History Tobacco Use Types Packs/Day Years Used Date Never Assessed Sex Assigned at Date Recorded Not on file documented as of this encounter Plan of Treatment Upcoming Encounters Date Type Specialty Care Team Description 02/17/2022 Office Visit Pain & [place] [address] [place], [place] [address] (Wo rk) documented as of this encounter Visit Diagnoses Diagnosis 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
--- OUTSIDE RECORDS SUMMARY | 2022-01-27 10:20 | XMS_ITS | Encounter Summary ---
:1955 Author Organization [place] Address [address] [facility] [place] [address] Care Team Providers Name Role Phone Verified, No Ref-Primary Primary Care Provider Unavailable Tony Gray MD Unavailable Conner Harper MD Unavailable Marlee Coles MD Primary Care Provider Ashish Alexander Primary Care Provider Unavailable Encounter Details Date Type Department Care Team Description 08/26/2014 Ambulatory - [facility] PAIN CENTER [facility] B, PA-C [address] [place] [address] [place], [place] [phone] [address] Social History Tobacco Use Types Packs/Day Years Used Date Never Assessed Sex Assigned at Date Recorded Not on file documented as of this encounter Plan of Treatment Upcoming Encounters Date Type Specialty Care Team Description 02/17/2022 Office Visit Pain & [place] [address] [place], [place] [address] (Wo rk) documented as of this encounter Visit Diagnoses Not on filedocumented in this encounter Care Teams Cracker Sprayer Relationship Specialty Start Date End Date Verified, No Ref-Primary PCP - General 10/01/14 Marlee Coles MD PCP - General 02/10/15 05/18/21 [place] [address] [address] [place] [address] Ashish Alexander PCP - General 12/05/13 09/30/14 Tony Gray MD Referring Physician Orthopedics 10/01/14 Conner Harper MD MD Orthopedics 10/01/[address] [place], [place] [address] documented as of this encounter
--- OUTSIDE RECORDS SUMMARY | 2022-01-27 10:21 | XMS_ITS | Encounter Summary ---
:1955 Author Organization [place] Address [address] [facility] [place] [address] Care Team Providers Name Role Phone Verified, No Ref-Primary Primary Care Provider Unavailable Tony Gray MD Unavailable Conner Harper MD Unavailable Marlee Coles MD Primary Care Provider [phone] Ashish Alexander Primary Care Provider Unavailable Encounter Details Date Type Department Care Team Description 06/29/2014 [facility] - [facility]irk, Ra baker B, PA-C [address] [facility] [address] [place], [place] [address] (Wo rk) Social History Tobacco Use Types Packs/Day Years Used Date Never Assessed Sex Assigned at Date Recorded Not on file documented as of this encounter Plan of Treatment Upcoming Encounters Date Type Specialty Care Team Description 02/17/2022 Office Visit Pain & [place] [address] [place], [place] [address] (Wo rk) documented as of this encounter Visit Diagnoses Not on filedocumented in this encounter Care Teams Director Digital Strategy Relationship Specialty Start Date End Date Verified, No Ref-Primary PCP - General 10/01/14 Marlee Coles MD PCP - General 02/10/15 05/18/21 [place] [address] [address] [place] [address] Ashish Alexander PCP - General 12/05/13 09/30/14 Tony Gray MD Referring Physician Orthopedics 10/01/14 Conner Harper MD MD Orthopedics 10/01/14 [facility] [place], [place] [address] [place], [place] [address] documented as of this encounter
--- OUTSIDE RECORDS SUMMARY | 2022-01-27 10:21 | XMS_ITS | Encounter Summary ---
:1955 Author Organization [place] Address [address] [place] [address] Care Team Providers Name Role Phone Verified, No Ref-Primary Primary Care Provider Unavailable Tony Gray MD Unavailable Conner Harper MD Unavailable Marlee Coles MD Primary Care Provider Ashish Alexander Primary Care Provider Unavailable Encounter Details Date Type Department Care Team Description 12/26/2012 Records - [facility] PAIN CENTER [facility] NO INFO [address] [place] [address] Social History Tobacco Use Types Packs/Day Years Used Date Never Assessed Sex Assigned at Date Recorded Not on file documented as of this encounter Plan of Treatment Upcoming Encounters Date Type Specialty Care Team Description 02/17/2022 Office Visit Pain & [place] [address] [place], [place] [address] (Wo rk) documented as of this encounter Procedures Procedure Name Priority Date/Time Associated Comments Diagnosis LABORATORY Routine 12/26/2012 11:13 Results for this MISCELLANEOUS ORDER AM CDT procedur e are in the results section. LABORATORY Routine 12/26/2012 11:13 Results for this MISCELLANEOUS ORDER AM CDT procedur e are in the results section. documented in this encounter Results : Laboratory Miscellaneous Order (12/26/2012 11:13 AM CDT) Specimen Anatomical Collection Method Collection Time Receive d Time (Source) Location / / Volume Laterality 12/26/2012 11:13 12/26/2012 AM CDT 11:13 AM CDT Narrative [facility] Y - 12/26/2012 11:13 AM CDT Test Description ? Tramadol ?? Department ? Chemistry Reference Test. ?Results to follow Elva Zapata LAB - BLOOD ORDERABLES Performing Organization Address City/[facility] Phon [place] [address] [facility] [address] [facility] LABORATORY : Laboratory Miscellaneous Order (12/26/2012 11:13 AM CDT) Specimen Anatomical Collection Method Collection Time Receive d Time (Source) Location / / Volume Laterality 12/26/2012 11:13 12/26/2012 AM CDT 11:13 AM CDT Narrative REFERRED ESOTERIC TESTS - 12/26/2012 11: 13 AM CDT Test Name: ? Tramadol, Urine ?? Test Results: ?Positive ?? Performed By: ?[employer] ?[address] ?[place] [address] Elva Zapata LAB - BLOOD ORDERABLES Performing Organization Address City/[facility] Phon e Number REFERRED ESOTERIC TESTS documented in this encounter Visit Diagnoses Not on filedocumented in this encounter Care Teams [place]ha Washing System Operator Relationship Specialty Start Date End Date Verified, No Ref-Primary PCP - General 10/01/14 Marlee Coles MD PCP - General 02/10/15 05/18/21 [place] [address] [address] [place] [address] Ashish Alexander PCP - General 12/05/13 09/30/14 Tony Gray MD Referring Physician Orthopedics 10/01/14 Conner Harper MD MD Orthopedics 10/01/[address] [facility] [place] [address] documented as of this encounter
--- OUTSIDE RECORDS SUMMARY | 2022-01-27 10:21 | XMS_ITS | Encounter Summary ---
:1955 Author Organization [place] Address [address] [facility] [place] [address] Care Team Providers Name Role Phone Verified, No Ref-Primary Primary Care Provider Unavailable Tony Gray MD Unavailable Conner Harper MD Unavailable Marlee Coles MD Primary Care Provider [phone] Ashish Alexander Primary Care Provider Unavailable Encounter Details Date Type Department Care Team Description 06/25/2013 Records - [facility] Nita Cavazos PA-C [address] [place] [phone] [place], [place] [phone] Social History Tobacco Use Types Packs/Day Years Used Date Never Assessed Sex Assigned at Date Recorded Not on file documented as of this encounter Plan of Treatment Upcoming Encounters Date Type Specialty Care Team Description 02/17/2022 Office Visit Pain & [place] [address] [place], [place] [address] (Wo rk) documented as of this encounter Procedures Procedure Name Priority Date/Time Associated Comments Diagnosis LABORATORY Routine 06/25/2013 11:52 Results for this MISCELLANEOUS ORDER AM MANAGER CONTRACT procedur e are in the results section. LABORATORY Routine 06/25/2013 11:52 Results for this MISCELLANEOUS ORDER AM MANAGER CONTRACT procedur e are in the results section. documented in this encounter Results : Laboratory Miscellaneous Order (06/25/2013 11:52 AM MANAGER CONTRACT) Specimen Anatomical Collection Method Collection Time Receive d Time (Source) Location / / Volume Laterality 06/25/2013 11:52 06/25/2013 AM MANAGER CONTRACT 11:52 AM MANAGER CONTRACT Narrative [facility] - 06/25/2013 11:52 AM MANAGER CONTRACT Test Description ? Tramadone ?? Specimen at [facility] ?? Department ? Chemistry Reference Test. ?Results to follow Marivel Cavazos PA-C LAB - BLOOD ORDERABLES Performing Organization Address [facility]/State/ZIP Code Phon [place] [address] [phone] [address] [facility] : Laboratory Miscellaneous Order (06/25/2013 11:52 AM MANAGER CONTRACT) Specimen Anatomical Collection Method Collection Time Receive d Time (Source) Location / / Volume Laterality 06/25/2013 11:52 06/25/2013 AM MANAGER CONTRACT 11:52 AM MANAGER CONTRACT Narrative REFERRED ESOTERIC TESTS - 06/25/2013 11: 52 AM MANAGER CONTRACT Test Name: ? Tramadol and Metabolite, Urine ?? Test Results: ?Tramadol ? Negative ?O-desmethy ltramadol ?Negative ?? Reference Range: Tramadol Cutoff: <5 0 ng/mL ?O-desmethy ltramadol Cutoff: <50 ng/mL ?? Performed By: ?[facility] ?[address] ?[place] [address] Marivel Cavazos PA-C LAB - BLOOD ORDERABLES Performing Organization Address City/State/ZIP Code Phon e Number REFERRED ESOTERIC TESTS documented in this encounter Visit Diagnoses Not on filedocumented in this encounter Care Teams Induction Machine Setter Relationship Specialty Start Date End Date Verified, No Ref-Primary PCP - General 10/01/14 Marlee Coles MD PCP - General 02/10/15 05/18/21 [place] [address] [address] [address] Ashish Alexander PCP - General 12/05/13 09/30/14 Tony Gray MD Referring Physician Orthopedics 10/01/14 Conner Harper MD MD Orthopedics 10/01/[address] [place], [place] [address] documented as of this encounter
--- OUTSIDE RECORDS SUMMARY | 2022-01-27 10:21 | XMS_ITS | Encounter Summary ---
:1955 Author Organization [place] Address [address] [facility] [place] [address] Care Team Providers Name Role Phone Verified, No Ref-Primary Primary Care Provider Unavailable Tony Gray MD Unavailable Conner Harper MD Unavailable Marlee Coles MD Primary Care Provider [phone] Ashish Alexander Primary Care Provider Unavailable Encounter Details Date Type Department Care Team Description 07/05/2012 Records - [facility] Nita Cavazos PA-C [address] [place] [phone] [place], [place] [phone] [address] Social History Tobacco Use Types Packs/Day Years Used Date Never Assessed Sex Assigned at Date Recorded Not on file documented as of this encounter Plan of Treatment Upcoming Encounters Date Type Specialty Care Team Description 02/17/2022 Office Visit Pain & [place] [address] [place], [place] [address] (Wo rk) documented as of this encounter Procedures Procedure Name Priority Date/Time Associated Comments Diagnosis LABORATORY Routine 07/05/2012 11:09 Results for this MISCELLANEOUS ORDER AM PIN BALL MACHINE MECHANIC procedur e are in the results section. LABORATORY Routine 07/05/2012 11:09 Results for this MISCELLANEOUS ORDER AM PIN BALL MACHINE MECHANIC procedur e are in the results section. documented in this encounter Results : Laboratory Miscellaneous Order (07/05/2012 11:09 AM PIN BALL MACHINE MECHANIC) Specimen Anatomical Collection Method Collection Time Receive d Time (Source) Location / / Volume Laterality 07/05/2012 11:09 07/05/2012 AM PIN BALL MACHINE MECHANIC 11:09 AM PIN BALL MACHINE MECHANIC Narrative [facility]ATOR Y - 07/05/2012 11:09 AM PIN BALL MACHINE MECHANIC Test Description ? tamadol urine, CPT 70884 ?? Department ? Chemistry Reference Test. ?Results to follow Marivel Cavazos PA-C LAB - BLOOD ORDERABLES Performing Organization Address City/[facility]/ZIP Code Phon [place] [address] [phone] [address] [facility] : Laboratory Miscellaneous Order (07/05/2012 11:09 AM PIN BALL MACHINE MECHANIC) Specimen Anatomical Collection Method Collection Time Receive d Time (Source) Location / / Volume Laterality 07/05/2012 11:09 07/05/2012 AM PIN BALL MACHINE MECHANIC 11:09 AM PIN BALL MACHINE MECHANIC Narrative REFERRED ESOTERIC TESTS - 07/05/2012 11: 09 AM PIN BALL MACHINE MECHANIC Test Name: ? Tramadol, Urine ?? Test Results: ?POSITIVE ?? Performed By: ?[facility] [employer] Marivel Cavazos PA-C LAB - BLOOD ORDERABLES Performing Organization Address City/State/ZIP Code Phon e Number REFERRED ESOTERIC TESTS documented in this encounter Visit Diagnoses Not on filedocumented in this encounter Care Teams Carton Stenciler Relationship Specialty Start Date End Date Verified, No Ref-Primary PCP - General 10/01/14 Marlee Coles MD PCP - General 02/10/15 05/18/21 [place] [address] [place] [address] Ashish Alexander PCP - General 12/05/13 09/30/14 Tony Gray MD Referring Physician Orthopedics 10/01/14 Conner Harper MD MD Orthopedics 10/01/[address] [facility] [facility] [address] [place], [place] [address] documented as of this encounter
--- OUTSIDE RECORDS SUMMARY | 2022-01-27 10:21 | XMS_ITS | Encounter Summary ---
:1955 Author Organization [place] Address [address] [place] [address] Care Team Providers Name Role Phone Ashish Alexander Primary Care Provider Unavailable Encounter Details Date Type Department Care Team Description 05/07/2014 Hospital Encounter [facility] M Ashish Leigh [address] [place], [place] [phone] Social History Tobacco Use Types Packs/Day Years Used Date Never Assessed Sex Assigned at Date Recorded Not on file documented as of this encounter Plan of Treatment Upcoming Encounters Date Type Specialty Care Team Description 02/17/2022 Office Visit Pain & [place] [address] [place], [place] [address] (Wo rk) documented as of this encounter Visit Diagnoses Not on filedocumented in this encounter Care Teams Bore Mill Operator [employer] Relationship Specialty Start Date End Date Ashish Alexander PCP - General 12/05/13 09/30/14 documented as of this encounter
[2022-01-27 14:25] LABS: C Reactive Protein* < 0.5 mg/dL (0.5-1.0)
[2022-01-27 15:36] LABS: Erythrocyte SedimentationRate* 2 mm/hr (2-15)
[2022-01-28 14:57] LABS: Rheumatoid Factor < 10 IU/mL (0-14)
[2022-01-30 17:08] LABS: ANA Pattern Speckled
== END 2022-01-27 10:13 | disposition home or self-care (01) ==
PROVIDERS: PCP Family Medicine; Visit Provider Physician Assistant
DX: M25.462 Effusion, left knee (principal); M25.562 Pain in left knee
CPT/HCPCS: 84550; 85651; 86039; 86140; 86200; 86431; 86618

== ENCOUNTER 2022-04-22 09:37 | Outpatient (CLI) | payer MEDICARE, BC, SELFPAY ==
--- OUTSIDE RECORDS SUMMARY | 2022-04-22 09:41 | XMS_ITS | Encounter Summary ---
:1955 Author Organization [place] Address [address] 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 Ifthey don't have the [...] be transferred to Dr. Buckley. Clinic Number: [phone] Call with any questions about your care and for scheduling assistance. Calls are returned Monday through Monday between 8 AM and 4:30 PM. We usually get back to you within2 business days depending on the issue/request. If we are prescribing your medications: For opioid medication refills, call the clinic or send a [employer] message 7 days in advance. Please include: Name of requested medication Name of the pharmacy. For non-opioid medications, call your pharmacy directly to request a refill. Please allow 3-4 days to be processed. Per [place] State Law: All controlled substance prescriptions must [...] Perez MD - 12/14/2021 9:30 AM CDT [facility] Date of visit: 12/14/21 Assessment: Tremaine Plunkett is a 66 year old with past medical history including: HTN, PVCs, diastolic heart failure, Obstructive and Central sleep apnea, Obesity who presents [facility] [place] [facility] They are being seen for the following [...] Lumbar CT scheduled. 5. Medication Management: 1. Albia 10-325, 4-6 tabs daily, #165/month. New refill provided today. 2. Acetaminophen 500mg QID. 3. Stop methocarbamol 4. Flexeril 5-10mg TID prn ordered. 5. Urine toxicology screen - 05/20/21 6. Opioid agreement - 09/23/21 6. Further procedures recommended: Consider ricci vs facet injections based on EMG results, would favor ricci if acute radiculopathy is noted. Could also consider surgical referral based on the EMG results. 7. Referrals: EMG referral placed to evaluate their radiculopathy (acute vs chronic), will have [facility] call back to schedule. 8. Follow up: 2 months, will call to schedule and transfer care. ?? Ortiz Perez DO [facility] Pain Management Chief complaint: No chief complaint [...] Pain Treatments: 1. Medications: Current pain medications: -Albia 10-325mg 4-6 tabs daily - 40-60 MME [...] professionals Time spent documenting clinical information in [facility] DO Liliana Ayala Pain Management documented in this encounter Plan of Treatment Upcoming Encounters Date Type Specialty Care Team Description 04/26/2022 Virtual Visit Pain & [place] [address] [place], [place] [address] (Wo rk) documented as [...] unspecified documented in this encounter Care Teams Lab Nurse Relationship Specialty Start Date End Date Zhang Masterson PCP - General Family Medicine 05/19/[address] [place] [address] Tony Gray MD Referring Physician Orthopedics 10/01/14 Conner Harper MD MD Orthopedics 10/01/[address] [place] [address] Marivel Cavazos, Assigned Surgical Provider [address] [place], [place] [phone] documented as of this encounter
--- OUTSIDE RECORDS SUMMARY | 2022-04-22 09:41 | XMS_ITS | Encounter Summary ---
:1955 Author Organization [place] Address [address] [facility] [place] [address] Care Team Providers Name Role Phone Tony Gray MD Unavailable Conner Harper MD Unavailable Marivel Cavazos PA-C Unavailable Zhang Masterson Primary Care Provider Reason for Visit Reason Onset Date Comments Opioid Refill 02/10/2022 HYDROcodone-acetamin ophen (NORCO) 10-325 MG per tablet Encounter Details Date Type Department Care Team Description 02/10/2022 Refill [facility] ChrisOrtiz Opioid Refill Management Matias Burton MD (HYDROcodone-acetamino [address] phen (NORCO) 10-325 MG [address] [place] [address] per tablet) [place] [address] [phone] Social History Tobacco Use Types Packs/Day Years Used Date Smoking Tobacco: Former Cigarettes Smokeless Tobacco: Never Alcohol Use Standard Drinks/Week Comments Never 0 (1 standard drink = 0.6 oz pure alcoho l) Sex Assigned at Date Recorded Not on file documented as of this encounter Miscellaneous Notes Telephone Encounter - Koffi Mcmillan RN - 02/10/2022 1:11 PM CDT Routing to provider to review medication prepped per below Chris transfer- has appt to establish 02/17/22 Midnight 10-325, #165, Refill:no Sig: Max of 5/day. Put 6 hours between doses. OK to fill 02/10/22 and start 02/10/22 Last picked up 12/17/21 with start on 12/18/21 Due: Anytime Per last OV note 12/14/21: 1. Medication Management:?? 1. Midnight 10-325, 4-6 tabs daily, #165/month. New refill provided today. Koffi KRAFT, RN Forging Roll Operator [facility] Telephone Encounter - Jayna Mahajan CMA - 02/10/2022 12:21 PM CDT Received call from patient requesting refill(s) for HYDROcodone-acetaminophen (NORCO) 10-325 MG per tablet Last dispensed from pharmacy on 12/17/21 Patient's last office/virtual visit by prescribing provider on 12/14/21 Next office/virtual appointment scheduled for 02/17/22 Last urine drug screen date 05/20/21 Current opioid agreement on file? Yes Date of opioid agreement: 09/22/21 E-prescribe to: [facility] - [address] route to [facility] for review and preparation of prescription(s). Telephone Encounter - Koffi Mcmillan RN - 02/10/2022 12:06 PM CDT Routed to [facility] to gather required information for opioid refill. Koffi KRAFT, RN Forging Roll Operator [facility] Telephone Encounter - Elva Menendez - 02/10/2022 7:27 AM CDT [facility] Phone Message May a detailed message be left on voicemail: yes Reason for Call: Medication Refill Request Has the patient contacted the pharmacy for the refill? Yes Name of medication being requested: HYDROcodone-acetaminophen (NORCO) 10-325 MG per tablet Provider who prescribed the medication: Chris Pharmacy: [facility] Date medication is needed: JESSICA Addendum Note - Koffi Mcmillan RN - 02/10/2022 7:26 AM CDT Addended by: KOFFI MCMILLAN on: 02/10/2022 01:16 PM Modules accepted: Orders Addendum Note - Danae Barron MD - 02/10/2022 7:26 AM CDT Addended by: DANAE BARRON on: 02/10/2022 01:20 PM Modules accepted: Orders documented in this encounter Plan of Treatment Upcoming Encounters Date Type Specialty Care Team Description 04/26/2022 Virtual Visit Pain & [place] [address] [place], [place] [address] (Wo rk) documented as of this encounter Visit Diagnoses Diagnosis Chronic pain syndrome Degeneration of lumbar intervertebral di sc Degeneration of lumbar or lumbosacral in tervertebral disc Chronic bilateral low back pain with mariel ateral sciatica documented in this encounter Care Teams Sports Intern Relationship Specialty Start Date End Date Zhang Masterson PCP - General Family Medicine 05/19/[address] [place] [address] Tony Gray MD Referring Physician Orthopedics 10/01/14 Conner Harper MD MD Orthopedics 10/01/14 [address] [facility] [address] [place] [address] Marivel Cavazos, Assigned Surgical Provider [address] [place] [address] documented as of this encounter
--- OUTSIDE RECORDS SUMMARY | 2022-04-22 09:41 | XMS_ITS | Encounter Summary ---
:1955 Author Organization [facility] Address [address] [place] [address] Care Team Providers Name Role Phone Tony Gray MD Unavailable Conner Harper MD Unavailable Marivel Cavazos PA-C Unavailable Zhang Masterson Primary Care Provider Reason for Visit Reason Comments Pain Encounter Details Date Type Department Care Team Description 03/02/2022 Virtual Visit [facility] Dara Buckley, Chron ic pain syndrome (Primary Dx); Pain Management Uncomplicated opioid dependence (H); [facility] [id number] [place] [address] Encounter for long-term (current) use of high-risk medication [address] [place], [place] [address] [address] [place] [address] Social History Tobacco Use Types Packs/Day Years Used Date Smoking Tobacco: Former Cigarettes Smokeless Tobacco: Never Alcohol Use Standard Drinks/Week Comments Never 0 (1 standard drink = 0.6 oz pure alcoho l) Sex Assigned at Date Recorded Not on file COVID-19 Exposure Response Date Recorded In the last 10 days, have you been in contact with No / Unsu re 02/17/2022 8:40 AM CDT someone who was confirmed or suspected to have Coronavirus/COVID-19? documented as of this encounter Patient Instructions Patient InstructionsNBria lucas MA - 03/02/2022 1:30 PM CDT Clinic Number: [phone] Call with any questions about your care and for scheduling assistance. Calls are returned Monday through Monday between 8 AM and 4:30 PM. We usually get back to you within2 business days depending on the issue/request. If we are prescribing your medications: For opioid medication refills, call the clinic or send a [employer] message 7 days in advance. Please include: Name of requested medication Name of the pharmacy. For non-opioid medications, call your pharmacy directly to request a refill. Please allow 3-4 days to be processed. Per [place] State Law: All controlled substance prescriptions must [...] clinic. documented in this encounter Progress Notes Dara Buckley MD - 03/02/2022 1:30 PM CDT Images from the original note were not included. Tremaine is a 66 year old who is being evaluated via a billable telephone visit. What phone number would you like to be contacted at? [phone] How would you like to obtain your AVS? Mail a copy Is Pt currently in [place]? Yes NOTE: If Pt is not in [place], Appointment needs to be canceled and rescheduled. Bria Mena MA [facility] Date of visit: 03/02/2022 Chief complaint: Chief Complaint Patient presents with ??? Pain Interval history: Tremaine Plunkett is a 66 year old male last seen by DR PEREZ for FOLLOW UP on 12/14/2021. He was previously a patient of Mark Cavazos at the [facility]. His INITIAL CONSULT with me was on 02/17/2022 and his first FOLLOW UP is today. Since his last visit, Tremaine Plunkett reports: - Doing well - He did not make the transition off NORCO and on to SUBUTEX yet because he was confused about the drug insert saying for withdrawal. Now that this has been explained to him he plans to discontinue his norco today and start the subutex tomorrow. 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 In 2001 he was lifting a box into a van and something snapped. He went back for 6 months on light duty and then was taken off completely. He has beengetting his doctor visits and medications through them since that time. - PCP is Zhang Masterson. He needs to make a follow up with him. - Recently had a knee injection on his LEFT knee in [facility] 3 weeks ago. He has been doing this for many years. - Seeing cardiology through [facility]. Had an ablation done early this year and is gettinga holter monitor in April. - Living in [place]. With his . This is 1.5 hours away near [facility]. They are both retired. - Tried living in [place] for the [place] but the dust was so bad that he couldn't tolerate it. - His pain is in the middle of his low back and into his tailbone. It radiates down both legs in no specific dermatomal pattern. Prolonged sitting makes it worse. His legs go numb on occasion. He is now also having tingling in his arms. - He is pretty active - he and his walk almost daily. The other day they went to the [facility] walked 4 miles. - Looking for a new dog as his . - EMG done at [facility] clinic of neurology was normal. - SLEEP APNEA evaluation was a couple years ago and he did a home monitor. He cannot tolerate the CPAP. I wont put anything on my face. - Taking Hydroxyzine daily for the itching. It is gets bad he takes two. He gets the itching from the norco. - He has been on NORCO now for 5 years. He thinks this keeps his pain down and helps. without it itwould be terrible. He has escalated his dose to 60mg daily. - They took morphine away from him in the past and he had a pain flare for awhile. ??-They take anywhere between 4-6 tabs based on their pain and activity levels. - He has had many different injections in the past and none have been helpful. He is not interested in repeating these. [place] DEVELOPMENT TRAINER REVIEWED TODAY: YES SUBUTEX 8MG #30 02/17/2022 NORCO 10MG #150 02/10/2022 UDS and CONTRACT DONE on 09/23/2021 CONTRACT & 05/20/2021 UDS MEDICATIONS FOR PAIN: NORCO 10MG #6/DAY FLEXERIL 5-10MG PRN NIGHT HYDROXYZINE 25MG TID PRN - ITCHINIG TYLENOL PRN PREVIOUS MEDICATIONS: LYRICA - RASH GABAPENTIN - NH TCA'S - NH CYMBALTA - NH ROBAXIN 500MG BID PRN - NH METHADONE - NIGHTMARES INJECTIONS/SURGERY: S/P SCS implant DR BOWENS 10/23/2018 NEVRO Lumbar ERIK's and RFA - [place] S/P Left shoulder arthroscopy - left distal clavical excision and mini rotator cuff repeair 02/11/2021 S/P Right ACL reconstruction 1991, knee arthroscopy 07/02/2010 IMAGING: CT LUMBAR SPINE 10/21/2021: FINDINGS: No fracture is identified. Alignment is significant for multilevel subtle grade 1 spondylolisthesis. Multilevel moderate degenerative disc disease is present with areas of hyperattenuation within the L1-L2, L2-L3, L3-L4, and L4-L5 disc spaces. Multilevel mild facet arthropathy. Moderate bilateral facet arthropathy at L5-S1. Disc bulging and ossification of the posterior longitudinal ligament contribute to mild spinal canal stenosis at multiple levels. Moderate spinal canal stenosis at L3-L4. Bilateral lateral recess narrowing at L3-L4, L4-L5, and L5-S1. Mild foraminal stenoses at multiple levels. [id number] bilateral foraminal stenoses at L2-L3. Moderate right and severe left foraminal stenoses at L3-L4. Severe bilateral foraminal stenoses at L4-L5. Mild right and moderate left foraminal stenoses at L5-S1. ?? Scattered vascular calcifications. Bilateral sacroiliac joint degenerative change. Spinal cord stimulator device with leads entering the spinal canal at T11-T12 and T12-L1 extending superiorly beyond the superior field of view. ?? IMPRESSION: 1. Degenerative change with multiple stenoses as detailed. 2. Spinal cord stimulator device. EMG @ [facility] 01/04/2022: NORMAL STUDY Medications: Current Outpatient Medications Medication Sig Dispense Refill ??? acetaminophen (TYLENOL) 500 MG tablet Take 1 tablet (500 mg) by mouth every 6 hours as needed for mild pain 120 tablet 0 ??? amLODIPine (NORVASC) 5 MG tablet ??? buprenorphine (SUBUTEX) 8 MG SUBL sublingual tablet Place 1 tablet (8 mg) under the tongue daily30 tablet 0 ??? cyclobenzaprine (FLEXERIL) 5 MG tablet Take 1-2 tablets (5-10 mg) by mouth 3 times daily as needed for muscle spasms 150 tablet 0 ??? hydrALAZINE (APRESOLINE) 50 MG tablet Take 100 mg by mouth 2 times daily ??? HYDROcodone-acetaminophen (NORCO) 10-325 MG per tablet Take 1-2 tablets by mouth 3 times daily as needed for severe pain . Max of 5/day. Put 6 hours between doses. OK to fill 02/10/22 and start 02/10/22 165 tablet 0 ??? hydrOXYzine (VISTARIL) 25 MG capsule Take 1 capsule (25 mg) by mouth 3 times daily as needed foritching 90 capsule 1 ??? naloxone (NARCAN) 4 MG/0.1ML nasal spray Harris 1 spray (4 mg) into one nostril alternating nostrils once as needed for opioid reversal every 2-3 minutes until assistance arrives 0.2 mL 0 ??? torsemide (DEMADEX) 20 MG tablet Review of Systems: ROS: Constitutional, neuro, ENT, endocrine, pulmonary, cardiac, gastrointestinal, genitourinary, musculoskeletal, integument and psychiatric systems are negative, except as otherwise noted. Physical Exam: There were no vitals taken for this visit. ASSESSMENT/PLAN: Tremaine Plunkett is a 66 year old with past medical history including: HTN, PVCs, diastolic heart failure, Obstructive and Central sleep apnea, Obesity who was initially a transfer of care from Marivel Cavazos at [place] to Dr. Perez and then to myself. They are being seen for the following chronic pain conditions: ?? 1. Chronic pain syndrome CHRONIC LOW BACK PAIN - Chronic low back pain with intermittent lumbar radiculopathy: Work related injury from 2001. They report ongoing chronic low back pain and intermittent bilateral radicular pain in an L4/5 distribution, worse on the left side. Repeat CT shows mod-severe foraminal stenosis bilater ally in the lower lumbar spine, EMG BILATERAL LE'S was normal. I am not recommending more injection therapy at this time. SCS place in 2019 is not helpful anymore and he would like to discuss having this removed. - buprenorphine (SUBUTEX) 8 MG SUBL sublingual tablet; Place 1 tablet (8 mg) under the tongue daily Dispense: 30 tablet; Refill: 0 2. Uncomplicated opioid dependence (H) He does not meet diagnostic criteria for opioid use disorder that I could find on chart review. However, I do have a big concern for opioid induced hyperalgesia as pain continues to get worse year after year. He has been on chronic opioids, started and escalated by another provider, for over 5 years no w. Explained that this type of medication is not indicated for chronic watermelon inspector pain because the body gets used to it and makes adjustments which is why he feels terrible withdrawal when he stops taking them. He seems to have some insight into this as he has run out in the past. He is at high risk secondary to KALI that is not treated as he cannot tolerate CPAP. He is also on MAXIMUM dose opioids right now so there is no room to increase his dose over time. He has agreed to a trial of subutex and I let him know that he needs to commit to this for at least 6 months as it takes time for the brain to heal from alf traditional opioid use. Instructions for home induction were given to the patient. Date to make the transition has bonnie set for tomorrow March 03, 2022. A follow up was scheduled for a couple weeks after he is making this transition to discuss dose changes and side effects. - buprenorphine (SUBUTEX) 8 MG SUBL sublingual tablet; Place 1 tablet (8 mg) under the tongue daily Dispense: 30 tablet; Refill: 0 3. Encounter for long-term (current) use of high-risk medication High Risk Drug Monitoring? YES Drug being monitored: Suboxone Reason for drug: Opioid Use Disorder What is being monitored?: Dosage, Cravings, Trigger, side effects, and abstinence. MEDICATIONS: No orders of the defined types were placed in this encounter. FOLLOW UP: March 24, 2022 @ 9:30AM - this will be a TELEPHONE visit as he does not have wifi and lives 1[place] hours away. Will plan to do ongoing 3 month follow ups in person. Phone call contact time: Call started at 1335 Call ended at 1347 BILLING TIME DOCUMENTATION: The total TIME spent on this patient on the date of the encounter/appointment was 22 minutes. TOTAL TIME includes: Time spent preparing to see the patient (reviewing records and tests) - 4 min Time spent face to face (or over the phone) with the patient - 12 min Time spent ordering tests, medications, procedures and referrals - 0 min Time spent Referring and communicating with other healthcare professionals - 0 min Time spent documenting clinical information in Epic - 6 min DARA BUCKLEY MD Pain Management & Addiction Medicine documented in this encounter Plan of Treatment Upcoming Encounters Date Type Specialty Care Team Description 04/26/2022 Virtual Visit [facility] [place] [address] [place], [place] [address] (Wo rk) documented as of this encounter Visit Diagnoses Diagnosis Chronic pain syndrome - Primary Uncomplicated opioid dependence (H) Opioid type dependence, unspecified Encounter for long-term (current) use of high-risk medication Encounter for long-term (current) use of other medications documented in this encounter Care Teams Automobile Brakes Bonder Relationship Specialty Start Date End Date Zhang Masterson PCP - General Family Medicine 05/19/[address] [place] [address] Tony Gray MD Referring Physician Orthopedics 10/01/14 Conner Harper MD MD Orthopedics 10/01/14 [facility] [place] [address] Marivel Cavazos, Assigned Surgical Provider [address] [place] [address] documented as of this encounter
--- OUTSIDE RECORDS SUMMARY | 2022-04-22 09:41 | XMS_ITS | Encounter Summary ---
:1955 Author Organization [facility] Address [address] [place] [address] Care Team Providers Name Role Phone Tony Gray MD Unavailable Conner Harper MD Unavailable Marivel Cavazos PA-C Unavailable Zhang Masterson Primary Care Provider Reason for Visit Reason Onset Date Comments Refill Request 02/10/2022 acetaminophen (TYLEN OL) 500 MG tablet Encounter Details Date Type Department Care Team Description 02/10/2022 Refill [facility] Ortiz Perez Refill Request Management Matias Burton MD (acetaminophen [address] (TYLENOL) 500 MG [address] [place] [address] tablet) [place] [address] [phone] Social History Tobacco Use Types Packs/Day Years Used Date Smoking Tobacco: Former Cigarettes Smokeless Tobacco: Never Alcohol Use Standard Drinks/Week Comments Never 0 (1 standard drink = 0.6 oz pure alcoho l) Sex Assigned at Date Recorded Not on file documented as of this encounter Miscellaneous Notes Telephone Encounter - Colinevangelistatomasz Mandy M - 02/10/2022 9:19 AM CDT Received fax request from [facility] requesting refill(s) for acetaminophen (TYLENOL) 500 MG tablet Last refilled on 08/25/21 Pt last seen on 12/14/21-Chris Next appt scheduled for 02/17/22-Marcio Will facilitate refill. documented in this encounter Plan of Treatment Upcoming Encounters Date Type Specialty Care Team Description 04/26/2022 Virtual Visit [facility] & [place] [address] [place], [place] [address] (Wo rk) documented as of this encounter Visit Diagnoses Diagnosis Degeneration of lumbar intervertebral di sc Degeneration of lumbar or lumbosacral in tervertebral disc Chronic bilateral low back pain with mariel ateral sciatica documented in this encounter Care Teams Construction Worker Relationship Specialty Start Date End Date Zhang Masterson PCP - General Family Medicine 05/19/[address] [place] [address] Tony Gray MD Referring Physician Orthopedics 10/01/14 Conner Harper MD MD Orthopedics 10/01/[address] [place] [address] Marivel Cavazos, Assigned Surgical Provider [address] [place], [place] [id number] documented as of this encounter
--- OUTSIDE RECORDS SUMMARY | 2022-04-22 09:41 | XMS_ITS | Encounter Summary ---
:1955 Author Organization [facility] Address [address] [facility] [place] [address] Care Team Providers Name Role Phone Tony [...] Pain & [place] [address] [place], [place] [address] (Wo rk) documented as of this encounter Visit Diagnoses Not on filedocumented in this encounter Care Teams Client Support Professional Relationship Specialty Start Date End Date Zhang Masterson PCP - General Family Medicine 05/19/[address] [place] [address] Tony Gray MD Referring Physician Orthopedics 10/01/14 Conner Harper MD MD Orthopedics 10/01/[address] [place], [place] [id number] Marivel Cavazos, Assigned Surgical Provider [address] [place] [address] documented as of this encounter
--- OUTSIDE RECORDS SUMMARY | 2022-04-22 09:41 | XMS_ITS | Clinical Summary ---
:1955 Author Organization [facility] Address [address] [place] [address] Care Team Providers Name Role Phone Tony [...] is Medications Medication Sig Dispensed Refills Start End Date Status Date amLODIPine 0 Active (NORVASC) 5 MG 1 tablet torsemide (DEMADEX) 0 Active 20 MG tablet 1 hydrALAZINE Take 100 mg by 0 Act deja (APRESOLINE) 50 MG mouth 2 times 1 tablet daily hydrOXYzine Take 1 capsule 90 capsule 1 Ac tive (VISTARIL) 25 MG (25 mg) by 2 capsuleIndications: mouth 3 times Chronic pain daily as needed syndrome, for itching Degeneration of lumbar intervertebral disc, Chronic bilateral low back pain with bilateral sciatica cyclobenzaprine Take 1-2 150 tablet 0 Act deja (FLEXERIL) 5 MG tablets (5-10 2 tabletIndications: mg) by mouth 3 Chronic pain times daily as syndrome, needed for Degeneration of muscle spasms lumbar intervertebral disc, Chronic bilateral low back pain with bilateral sciatica naloxone (NARCAN) 4 [place] 1 spray 0.2 mL 0 Active MG/0.1ML nasal (4 mg) into one 2 sprayIndications: nostril Chronic pain alternating syndrome, nostrils once Degeneration of as needed for lumbar opioid reversal intervertebral every 2-3 disc, Chronic minutes until bilateral low back assistance pain with bilateral arrives sciatica, Chronic, continuous use of opioids buprenorphine Place 1 tablet 30 tablet 0 A ctive (SUBUTEX) 8 MG SUBL (8 mg) under 2 sublingual the tongue tabletIndications: daily Chronic pain syndrome, Uncomplicated opioid dependence (H) acetaminophen Take 2 tablets 160 tablet 2 Active (TYLENOL) 500 MG (1,000 mg) by 2 tabletIndications: mouth every 8 Degeneration of hours as needed lumbar for mild pain intervertebral disc, Chronic bilateral low back pain with bilateral sciatica bulk laxative Take 1 packet 30 packet 4 Ac tive (BENEFIBER DRINK by mouth daily 2 MIX) packetIndications: Therapeutic opioid induced constipation buprenorphine-nalox Take 1 tablet 90 tablet 0 Active one (ZUBSOLV) by mouth 3 2 2.9-0.71 MG SUBL SL times daily tabletIndications: Chronic bilateral low back pain with bilateral sciatica, Chronic pain syndrome, Uncomplicated opioid dependence (H) HYDROcodone-acetami Take 1-2 165 tablet 0 03/24/20 Discontinued nophen (NORCO) tablets by 2 22 10-325 MG per mouth 3 times tabletIndications: daily as needed Chronic pain for severe pain syndrome, . Max of 5/day. Degeneration of Put 6 hours lumbar between doses. intervertebral OK to fill disc, Chronic 02/10/22 and bilateral low back start 02/10/22 pain with bilateral sciatica acetaminophen Take 1 tablet 120 tablet 0 03/24/20 D iscontinued (TYLENOL) 500 MG (500 mg) by 2 22 ( Reorder) tabletIndications: mouth every 6 Degeneration of hours as needed lumbar for mild pain intervertebral disc, Chronic bilateral low back pain with bilateral sciatica buprenorphine-nalox Take 90 tablets 90 tablet 0 12/06 Discontinued one (ZUBSOLV) by mouth 3 2 22 2.9-0.71 MG SUBL SL times daily tabletIndications: Chronic bilateral low back pain with bilateral sciatica, Chronic pain syndrome, Uncomplicated opioid dependence (H) Active Problems Problem Noted Date Knee pain 11/03/2014 S/P ACL reconstruction 11/03/2014 DJD (degenerative joint disease) of knee 11/03/2014 S/P meniscectomy 11/03/2014 Encounters Date Type Specialty Care Team Description 04/01/2022 Telephone Pain & Palliative Rosanna Buckley MD Med ication Question Care 03/24/2022 Virtual Visit Pain & Palliative Rosanna Buckley MD Ch ronic pain syndrome (Primary Dx); Care Uncomplicated o pioid dependence (H); Degeneration of lumbar intervertebral disc; Chronic bilater al low back pain with bilateral sciatica; Therapeutic opi oid induced constipation; Encounter for l sissy-term (current) use of high-risk medication 03/24/2022 Telephone Pain & Palliative Rosanna Buckley MD Med ication Question Care 03/16/2022 Refill Pain & Palliative Jimena Buckley Opioid R efill (norco) Care 03/02/2022 Virtual Visit Pain & Palliative Rosanna Buckley MD Ch ronic pain syndrome (Primary Dx); Care Uncomplicated o pioid dependence (H); Encounter for l sissy-term (current) use of high-risk medication 02/17/2022 Office Visit Pain & Palliative Rosanna Buckley MD Chr onic pain syndrome (Primary Dx); Care Uncomplicated o pioid dependence (H); Encounter for l sissy-term (current) use of high-risk medication 02/17/2022 Telephone Pain & Palliative Rosanna Buckley MD Med ication Question Care 02/17/2022 Travel 02/10/2022 Refill Pain & Palliative Ortiz Perez Refi ll Request Care MD Micheal (acetaminophen (TYLENOL) 500 M G tablet) 02/10/2022 Refill Pain & Palliative Ortiz Perez Opio id Refill Care MD Micheal (HYDROcodone-ac etamino phen (NORCO) 10 -325 MG per tablet) from Last 3 Months Immunizations Name Administration [...] Sign Reading Time Taken Comments Blood Pressure 138/70 02/17/2022 9:13 AM CDT Pulse 65 02/17/2022 9:13 AM CDT Temperature - - Respiratory Rate 18 02/04/2021 11:07 AM CDT Oxygen Saturation 97% 02/17/2022 9:13 AM CDT Inhaled Oxygen Concentration - - Weight 96.2 kg (212 lb 1.6 oz) 10/15/2021 9:58 AM CDT Height 172.7 cm (5' 8) 02/04/2021 11:07 AM CDT Body Mass Index 32.25 02/04/2021 11:07 AM CDT Plan of Treatment Upcoming Encounters Date Type Specialty Care Team Description 04/26/2022 Virtual Visit [facility] [place] [address] [place], [place] [address] (Wo rk) Health Maintenance Due Date Last Done Comments ADVANCE CARE PLANNING 1955 ANNUAL REVIEW OF HM ORDERS 1955 CT COLONOGRAPHY 1955 FIT-DNA (Cologuard) 1955 FIT 1955 FLEX SIG 1955 HEPATITIS B IMMUNIZATION (1 1955 of 3 - 3-dose series) COLONOSCOPY 1966 COLORECTAL CANCER SCREENING 1966 HIV SCREENING 09/13/1971 HEPATITIS C SCREENING 1974 LIPID 09/13/1991 LUNG CANCER SCREENING 2006 ZOSTER IMMUNIZATION (1 of 2) 2006 PHQ-2 (once per calendar 06/19/2021 year) COVID-19 Vaccine (4 - Booster 07/02/2021 05/07/2021, for Pfizer series) 10/26/2020, 10/05/2020 AORTIC ANEURYSM SCREENING 2021 (SYSTEM ASSIGNED) FALL RISK ASSESSMENT 2021 MEDICARE ANNUAL WELLNESS 2021 VISIT Pneumococcal Vaccine: 65+ 2021 Years (1 - PCV) INFLUENZA VACCINE (#1) 2022 DTAP/TDAP/TD IMMUNIZATION (2 05/15/2022 05/15/2012 - Td or Tdap) URINE DRUG SCREEN 05/20/2022 05/20/2021, 06/10/2020, 06/13/2019 IPV IMMUNIZATION Aged Out No longer eligi ble based on patient's age to complete this to pic MENINGITIS IMMUNIZATION Aged Out No longe r eligible based on patient's age to complete this to pic Medical Devices Implanted Type Area Metal Extrusion Supervisor Device Shelf Model / Identifier Expiration Date Ser ial / Lot Igp Kit/Generator Right: 02/07/2020 / Implanted: Qty: 1 on 11/29/2018 Back [id number] / [id number] Description: GENERATOR PLACED IN RIGHT F LANK Insurance Payer Benefit Plan / Subscriber ID Effective Phone Address T ype Group Dates WORK COMP WC LIBERTY [id number] 2001-Prese [phone] [address] [employer] [address] [place] [address] MEDICARE MEDICARE [id number] 2005-Prese [phone] ATTN CLAI MS Medicare nt 40 [address] [place] [address] MEDICARE MEDICARE FOR HB [id number] 2016-Prese [phone] ATTN CLAIMS Medicare SUPPLEMENT nt [address] [facility] [place] [address] Tremaine Plunkett Worker's Self 1955 [id number] Compensation 0 (Home) [place] [address] Care Teams Mascara Molder Relationship Specialty Start Date End Date Zhang Masterson PCP - General Family Medicine 05/19/21 [address] [facility] [place] [address] Tony Gray MD Referring Physician Orthopedics 10/01/14 Conner Harper MD MD Orthopedics 10/01/[address] [place] [address] Marivel Cavazos, Assigned Surgical Provider [address] [place], [place] [id number]
--- OUTSIDE RECORDS SUMMARY | 2022-04-22 09:41 | XMS_ITS | Encounter Summary ---
:1955 Author Organization [place] Address [address] [facility] [place] [address] Care Team Providers Name Role Phone Tony Gray MD Unavailable Conner Harper MD Unavailable Marivel Cavazos PA-C Unavailable Zhang Masterson Primary Care Provider Reason for Visit Reason Onset Date Comments Opioid Refill 11/16/2021 HYDROcodone-acetamin ophen (NORCO) 10-325 MG per tablet Encounter Details Date Type Department Care Team Description 11/16/2021 Refill [facility] Pain Chris[facility] Opioid Refill Management Matias Burton MD (HYDROcodone-acetamino [address] phen (NORCO) 10-325 MG [address] [place] [address] per tablet/) [place] [address] [phone] Social History Tobacco Use Types Packs/Day Years [...] 11/18/21 and start 11/20/21 Bria Mena MA [facility] Center Telephone Encounter - Ortiz Perez MD - 11/16/2021 12:53 PM CDT CELL LINER reviewed, norco refill approved. DO Kary Campuzano [facility] Pain Management Telephone Encounter - Lauren Mcmillan RN - 11/16/2021 12:36 PM CDT Routing to provider to review medication prepped per below Taylor 10-325, #150, Refill:no Sig:. Max of 5/day. Put 6 hours between doses. OK to fill 11/18/21 and start 11/20/21 Last picked up 10/15/21 with start on 10/21/21 Due 11/20/21 Per last OV note 10/15/21: 1. Medication Management:?? 1. Taylor 10-325, 4-5 tabs daily, #150/month. Will increase back to 150 with next refill. They will call and let us know how man tablets are remaining from the last refill. Lauren KRAFT, RN White Lead Filterer [facility] Pain Management Telephone Encounter - Bria Mena [...] agreement: 09/01/21 E-prescribe to [facility] [address] [address] Will route to nursing pool for review and preparation of prescription(s). Bria Mena MA [facility] Telephone Encounter - Rose Tee - 11/16/2021 8:36 AM CDT Reason for call: Medication If this is a refill request, has the caller requested the refill from the pharmacy already? No Will the patient be using a [facility]? Dewy Rose of the pharmacy and phone number for the current request: [facility] - [address] Name of the medication requested: -HYDROcodone-acetaminophen (NORCO) 10-325 MG per tablet -hydrOXYzine (VISTARIL) 25 MG capsule Phone number to reach patient: Home number on file [phone] (home) Can we leave a detailed message on this number? YES Travel screening: Not Applicable , Rose Tee General Laborer [facility] Pain Management [place] documented in this encounter Plan of Treatment Upcoming Encounters Date Type Specialty Care Team Description 04/26/2022 Virtual Visit Pain & [place] [address] [place], [place] [address] (Wo rk) documented as of this encounter Visit Diagnoses Diagnosis Chronic pain syndrome Degeneration of lumbar intervertebral di sc Degeneration of lumbar or lumbosacral in tervertebral disc Chronic bilateral low back pain with mariel ateral sciatica documented in this encounter Care Teams One Piece Expansion Maker Hand Relationship Specialty Start Date End Date Aleja Zhang PCP - General Family Medicine 05/19/[address] [place] [address] Tony Gray MD Referring Physician Orthopedics 10/01/14 Conner Harper MD MD Orthopedics 10/01/[address] [place], [place] [address] Marivel Cavazos, Assigned Surgical Provider [address] [place] [id number] documented as of this encounter
--- OUTSIDE RECORDS SUMMARY | 2022-04-22 09:41 | XMS_ITS | Encounter Summary ---
:1955 Author Organization [place] Address [address] [place] [address] Care Team Providers Name Role Phone Tony Gray MD Unavailable Conner Harper MD Unavailable Marivel Cavazos PA-C Unavailable Zhang Masterson Primary Care Provider Reason for Visit Reason Comments Pain Encounter Details Date Type Department Care Team Description 02/17/[address] [facility] Dara Buckley, Chroni c pain syndrome (Primary Dx); Pain Management Uncomplicated opioid dependence (H); [place] [address] [address] Encounter for long-term (current) use of high-risk medication [address] [place], [place] [address] [address] [place] [address] Social History Tobacco Use Types [...] Respiratory Rate - - Oxygen Saturation 97% 02/17/2022 9:13 AM CDT Inhaled Oxygen Concentration - - Weight - - Height - - Body Mass Index - - documented in this encounter Patient Instructions Patient InstructionsDara Buckley MD - 02/17/2022 9:00 AM CDT SUBUTEX - Take 1/2 tab or 4mg in the morning and 1/2 tab around dinner time. Wait until you get this in the mail and then STOP your [place] for at least 12 HRS before you start the subutex. You need to feel moderate amount of withdrawal before starting the new medication. It will take away your withdrawal but it will take some time for your brain to recover from daily opioid use so I am asking that you stick with it for at least 6 months before making any decision. Follow up with me 03/02/2022 @ 1:30PM. This will be a telephone call to see about the dose. Dara Buckley MD Clinic Number: [phone] Call with any questions about your care and for scheduling assistance. Calls are returned Monday through Monday between 8 AM and 4:30 PM. We usually get back to you within2 business days depending on the issue/request. If we are prescribing your medications: For opioid medication refills, call the clinic or send a DLC message 7 days in advance. Please include: Name of requested medication Name of the pharmacy. For non-opioid medications, call your pharmacy directly to request a refill. Please allow 3-4 days to be processed. Per [place] State Law: All controlled substance prescriptions must [...] encounter Progress Notes Dara Buckley MD - 02/17/2022 9:00 AM CDT Images from the original note were not included. [facility] Center Date of visit: 02/17/2022 Chief complaint: Chief Complaint Patient presents with ??? Pain Interval history: Tremaine Plunkett is a 66 year old male last seen by DR PEREZ for FOLLOW UP on 12/14/2021. He was previously a patient of Mark Cavazos at the [facility]. Today is his INITIAL CONSULT with me. 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 [...] knee injection on his LEFT knee in [facility] 3 weeks ago. He has been doing this for many years. - Seeing cardiology through [facility]. Had an ablation done early this year and is gettinga holter monitor in April. - Living in [facility]. With his . This is [place]5 hours away near [facility]. They are both retired. - Tried living in [place] for the [place] but the dust was [...] The other day [facility] walked 4 miles. - Looking for a [...] is not interested in repeating these. [place] DIRECTOR BIOMEDICAL ENGINEERING REVIEWED TODAY: YES NORCO 10MG #150 02/10/2022 UDS and CONTRACT [...] L5-S1. Mild foraminal stenoses at multiple levels. [id number] bilateral foraminal stenoses at L2-L3. Moderate right [...] ??? amLODIPine (NORVASC) 5 MG tablet ??? cyclobenzaprine (FLEXERIL) 5 MG tablet Take [...] ??? naloxone (NARCAN) 4 MG/0.1ML nasal spray [place] 1 spray (4 mg) into one nostril alternating nostrils once as needed for opioid reversal every 2-3 minutes until assistance arrives 0.2 mL 0 ??? torsemide (DEMADEX) 20 MG tablet Review of Systems: ROS: Constitutional, neuro, ENT, endocrine, pulmonary, cardiac, gastrointestinal, genitourinary, musculoskeletal, integument and psychiatric systems are negative, except as otherwise noted. Physical Exam: Blood pressure 138/70, pulse 65, SpO2 97 %. GENERAL: Healthy, alert and no distress EYES: Eyes grossly normal to inspection. No discharge or erythema, or obvious scleral/conjunctival abnormalities. RESP: No audible wheeze, cough, or visible cyanosis. No visible retractions or increased work of breathing. SKIN: Visible skin clear. No significant rash, abnormal pigmentation or lesions. NEURO: Cranial nerves grossly intact. Mentation and speech appropriate for age. PSYCH: Mentation appears normal, affect normal/bright, judgement and insight intact, normal speech and appearance well-groomed. ASSESSMENT/PLAN: Tremaine Plunkett is a 66 year old with past medical history including: HTN, PVCs, diastolic heart failure, Obstructive and Central sleep apnea, Obesity who was initially a transfer of care from Marivel Cavazos at [place] to Dr. Perez and then to myself. [...] of medication is not indicated for chronic termite renewal inspector pain because the body gets used [...] time for the brain to heal from termite renewal inspector traditional opioid use. Instructions for home induction were given to the patient and a follow up scheduled for about a weekafter he is making this transition to discuss [...] Cravings, Trigger, side effects, and abstinence. MEDICATIONS: Orders Placed This Encounter Medications ??? buprenorphine (SUBUTEX) 8 MG SUBL sublingual tablet Sig: Place 1 tablet (8 mg) under the tongue daily Dispense: 30 tablet Refill: 0 NADEAN: [id number] FOLLOW UP: March 02, 2022 @ 1:30PM - this will be a TELEPHONE visit as he does not have wifi and lives 1[place] hours away. Will plan to do ongoing 3 month follow ups in person. BILLING TIME DOCUMENTATION: The total TIME spent on this patient on the date of the encounter/appointment was 61 minutes. TOTAL TIME includes: Time spent preparing to see the patient (reviewing records and tests) - 8 min Time spent face to face (or over the phone) with the patient - 42 min Time spent ordering tests, medications, procedures and referrals - 1 min Time spent Referring and communicating with other healthcare professionals - 0 min Time spent documenting clinical information in Epic - 10 min DARA BUCKLEY MD Pain Management & Addiction Medicine documented in this encounter Plan of Treatment Upcoming Encounters Date Type Specialty Care Team Description 04/26/2022 Virtual Visit Pain & [place] [address] [place], [place] [address] (Wo rk) documented as of this encounter Visit Diagnoses Diagnosis Chronic pain syndrome - Primary Uncomplicated opioid dependence (H) Opioid type dependence, unspecified Encounter for long-term (current) use of high-risk medication Encounter for long-term (current) use of other medications documented in this encounter Care Teams Slots Manager Relationship Specialty Start Date End Date Zhang Masterson PCP - General Family Medicine 05/19/[address] [place] [address] [id number] Tony Gray MD Referring Physician Orthopedics 10/01/14 Conner Harper MD MD Orthopedics 10/01/[address] [place], [place] [address] Marivel Cavazos, Assigned Surgical Provider [address] [place] [id number] documented as of this encounter
--- OUTSIDE RECORDS SUMMARY | 2022-04-22 09:41 | XMS_ITS | Encounter Summary ---
:1955 Author Organization [place] Address [address] [facility] [place] [address] Care Team Providers Name Role Phone Tony Gray MD Unavailable Conner Harper MD Unavailable Marivel Cavazos PA-C Unavailable Zhang Masterson Primary Care Provider Reason for Visit Reason Onset Date Comments Opioid Refill 03/16/2022 norco Encounter Details Date Type Department Care Team Description 03/16/2022 Refill [facility] Jimena Morrissey Opi oid Refill (norco) Management [facility] [address] [place] [address] Social History Tobacco Use Types [...] Telephone Encounter - Lauren Mcmillan RN - 03/17/2022 10:05 AM CDT Called pt. He states he did not request [place] but requested acetaminophen 500mg. Aware of appt 03/24to discuss subutex. Routing to provider to review refill of acetaminophen 500mg 03/02/22: He has agreed to a trial of subutex and I let him know that he needs to commit to this for at least 6 months as it takes time for the brain to heal from nursing home traditional opioid use. ?? Instructions for home induction were given to the patient. Date to make the transition has bonnie set for tomorrow March 03, 2022. A follow up was scheduled for a couple weeks after he is making this transition to discuss dose changes and side effects. ?? - buprenorphine (SUBUTEX) 8 MG SUBL sublingual tablet; Place 1 tablet (8 mg) under the tongue daily Dispense: 30 tablet; Refill: 0 Lauren KRAFT, RN Car Shifter [facility] Pain Management Telephone Encounter - Rosanna Buckley MD - 03/16/2022 2:43 PM CDT Vermillion has been discontinued. He is now taking subutex. Plan to have nursing call the patient and find out what is going on. He was supposed to make the transition after his last follow up with me. Rosanna Buckley MD Telephone Encounter - Jacoby Crowley CMA - 03/16/2022 9:20 AM CDT Patient requesting refill(s) of HYDROcodone-acetaminophen (NORCO) 10-325 MG per tablet Last dispensed from pharmacy on 02/10/22 Patient's last office/virtual visit by prescribing provider on 02/17/22 Next office/virtual appointment scheduled for 03/24/22 Last urine drug screen date 05/20/21 Current opioid agreement on file (completed within the last year) Yes Date of opioid agreement: 09/23/21 E-prescribe to [facility] - [place], [place] Will route to nursing pool for review and preparation of prescription(s). documented in this encounter Plan of Treatment Upcoming Encounters Date Type Specialty Care Team Description 04/26/2022 Virtual Visit Pain & [place] [address] [place], [place] [address] (Wo rk) documented as of this encounter Visit Diagnoses Diagnosis Chronic pain syndrome Degeneration of lumbar intervertebral di sc Degeneration of lumbar or lumbosacral in tervertebral disc Chronic bilateral low back pain with mariel ateral sciatica documented in this encounter Care Teams Refrigerator Room Clerk Relationship Specialty Start Date End Date Zhang Masterson PCP - General Family Medicine 05/19/[address] [place] [address] Tony Gray MD Referring Physician Orthopedics 10/01/14 Conner Harper MD MD Orthopedics 10/01/[address] [place] [address] Marivel Cavazos, Assigned Surgical Provider [address] [place] [id number] documented as of this encounter
--- OUTSIDE RECORDS SUMMARY | 2022-04-22 09:41 | XMS_ITS | Encounter Summary ---
:1955 Author Organization [place] Address [address] [place] [address] Care Team Providers Name Role Phone Tony [...] Pain & [place] [address] [facility] [place] [id number] (Wo rk) documented as of this encounter Visit Diagnoses Not on filedocumented in this encounter Care Teams Fuel House Attendant Relationship Specialty Start Date End Date Zhang Masterson PCP - General Family Medicine 05/19/[address] [place] [address] Tony Gray MD Referring Physician Orthopedics 10/01/14 Conner Harper MD MD Orthopedics 10/01/[address] [place], [place] [address] Marivel Cavazos, Assigned Surgical Provider [address] [place] [id number] documented as of this encounter
--- OUTSIDE RECORDS SUMMARY | 2022-04-22 09:41 | XMS_ITS | Encounter Summary ---
:1955 Author Organization [place] Address [address] [facility] [place] [address] Care Team Providers Name Role Phone Tony Gray MD Unavailable Conner Harper MD Unavailable Marivel Cavazos PA-C Unavailable Zhang Masterson Primary Care Provider Reason for Visit Reason Onset Date Comments Medication Question 03/24/2022 Encounter Details Date Type Department Care Team Description 03/24/2022 Telephone [facility] Pain Jessica Buckley MD Medication Question Management [id number] [place] [address] [phone] Social History Tobacco Use Types Packs/Day Years Used Date Smoking Tobacco: Former Cigarettes Smokeless Tobacco: Never Alcohol Use Standard Drinks/Week Comments Never 0 (1 standard drink = 0.6 oz pure alcoho l) Sex Assigned at Date Recorded Not on file documented as of this encounter Miscellaneous Notes Telephone Encounter - Lauren Mcmillan RN - 03/28/2022 11:38 AM CDT Called pharmacy and confirmed they had actually received the corrected prescription on 03/24/22 Lauren KRAFT, RN Slab Stripper [facility] Pain Management Telephone Encounter - Elva Menendez - 03/28/2022 11:30 AM CDT Pharmacy called to check on the status of this. They have not received a corrected prescription yet.They are requesting that the corrected prescription be resent. Thanks. Telephone Encounter - Gi Irwin RN - 03/25/2022 2:54 PM CDT Rx corrected and resent. Closing Gi Andino RN Slab Stripper [facility] Telephone Encounter - Elva Menendez - 03/24/2022 10:20 AM CDT [facility] Phone Message May a detailed message be left on voicemail: yes Reason for Call: Medication Question or concern regarding medication Prescription Clarification Name of Medication: buprenorphine-naloxone (ZUBSOLV) 2.9-0.71 MG SUBL SL tablet Prescribing Provider: Rosanna Buckley Pharmacy: [facility] What on the order needs clarification? The directions say to take 90 tablets by mouth 3 times per day. Doesn't make sense. Please call pharmacy back to clarify. documented in this encounter Plan of Treatment Upcoming Encounters Date Type Specialty Care Team Description 04/26/2022 Virtual Visit Pain & [place] [address] [place], [place] [address] (Wo rk) documented as of this encounter Visit Diagnoses Diagnosis Chronic bilateral low back pain with mariel ateral sciatica Chronic pain syndrome Uncomplicated opioid dependence (H) Opioid type dependence, unspecified documented in this encounter Care Teams Clothing Examiner Relationship Specialty Start Date End Date Zhang Masterson PCP - General Family Medicine 05/19/[address] [place] [address] [place] [id number] Tony Gray MD Referring Physician Orthopedics 10/01/14 Conner Harper MD MD Orthopedics 10/01/[address] [place], [place] [phone] Marivel Cavazos, Assigned Surgical Provider [address] [place] [id number] documented as of this encounter
--- OUTSIDE RECORDS SUMMARY | 2022-04-22 09:41 | XMS_ITS | Encounter Summary ---
:1955 Author Organization [place] Address [address] [place] [address] Care Team Providers Name Role Phone Tony Gray MD Unavailable Conner Harper MD Unavailable Marivel Cavazos PA-C Unavailable Zhang Masterson Primary Care Provider Reason for Visit Reason Onset Date Comments Transfer Note 10/25/2021 Encounter Details Date Type Department Care Team Description 10/[facility] Transfer [place] [address] [address] [facility] [address] [place] [address] [place] [address] [phone] Social History Tobacco Use Types Packs/Day Years [...] to be with Dr Marcio KRAFT, RN Bag Machine Set Up Operator [facility] Pain Management documented in this encounter Plan of Treatment Upcoming Encounters Date Type Specialty Care Team Description 04/26/2022 Virtual Visit Pain & [place] [address] [place], [place] [address] (Wo rk) documented as of this encounter Visit Diagnoses Not on filedocumented in this encounter Care Teams Flight Readiness Technician Relationship Specialty Start Date End Date Zhang Masterson PCP - General Family Medicine 05/19/[address] [place] [address] Tony Gray MD Referring Physician Orthopedics 10/01/14 Conner Harper MD MD Orthopedics 10/01/[address] [place] [address] Marivel Cavazos, Assigned Surgical Provider [address] [place] [id number] documented as of this encounter
--- OUTSIDE RECORDS SUMMARY | 2022-04-22 09:41 | XMS_ITS | Encounter Summary ---
:1955 Author Organization [place] Address [address] [facility] [place] [address] Care Team Providers Name Role Phone Tony Gray MD Unavailable Conner Harper MD Unavailable Marivel Cavazos PA-C Unavailable Zhang Masterson Primary Care Provider Encounter Details Date Type Department Care Team Description 02/17/2022 Travel Social History Tobacco Use Types Packs/Day [...] Pain & [place] [address] [facility] [place] [address] (Wo rk) documented as of this encounter Visit Diagnoses Not on filedocumented in this encounter Care Teams Screedman/Laborer Relationship Specialty Start Date End Date Zhang Masterson PCP - General Family Medicine 05/19/[address] [place] [address] Tony Gray MD Referring Physician Orthopedics 10/01/14 Conner Harper MD MD Orthopedics 10/01/[address] [place], [place] [address] Marivel Cavazos, Assigned Surgical [place] [address] [place] [id number] documented as of this encounter
--- OUTSIDE RECORDS SUMMARY | 2022-04-22 09:41 | XMS_ITS | Encounter Summary ---
:1955 Author Organization [place] Address [address] [facility] [place] [address] Care Team Providers Name Role Phone Tony Gray MD Unavailable Conner Harper MD Unavailable Marivel Cavazos PA-C Unavailable Zhang Masterson Primary Care Provider Reason for Visit Reason Comments Pain Encounter Details Date Type Department Care Team Description 03/24/2022 Virtual Visit [facility] Dara Buckley, Rikki ic pain syndrome (Primary Dx); Pain Management Uncomplicated opioid dependence (H); [place] [address] [address] Degeneration of lumbar intervertebral di sc; [address] [place], [place] Chronic bilateral low back p ain with bilateral sciatica; [address] [address] Therapeutic opioid induced constipation; [place] [address] Encounter for long-term (cur rent) use of high-risk medication Social History Tobacco Use Types Packs/Day Years Used Date Smoking Tobacco: Former Cigarettes Smokeless Tobacco: Never Alcohol Use Standard Drinks/Week Comments Never 0 (1 standard drink = 0.6 oz pure alcoho l) Sex Assigned at Date Recorded Not on file documented as of this encounter Progress Notes Dara Buckley MD - 03/24/2022 9:30 AM CDT Images from the original note were not included. Tremaine is a 66 year old who is being evaluated via a billable telephone visit. What phone number would you like to be contacted at? [phone] How would you like to obtain your AVS? Mail a copy Pt currently in [place]?Yes NOTE: If Pt is not in [place], Appointment needs to be canceled and rescheduled. [facility] Date of visit: 03/24/2022 Chief complaint: Chief Complaint Patient presents with ??? Pain Interval history: Tremaine Plunkett is a 66 year old male last seen by DR PEREZ for FOLLOW UP on 12/14/2021. He was previously a patient of [facility]. His INITIAL CONSULT with me was on 02/17/2022 and his first FOLLOW UP was 03/02/2022. Since his last visit, Tremaine Plunkett reports: - Doing well - He is having terrible back pain that is radiating to his right buttock and leg. Occasionally it radiates to his left leg as well. - Pain is worse when sitting down and he is standing now all day. - He transitioned to Subutex on 03/02/2022. He is taking one half in the am and another around 5pm. - He hates the taste of the tablet. - Pain is worse than when he was on NORCO - He is having more trouble with constiption I never had that on norco. 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 In 2001 he was lifting a box into a van and something snapped. He went back for 6 months on light duty and then was taken off completely. He has beengetting his doctor visits and medications through them since that time. - PCP is Zhang Masterson. - Recently had a knee injection on his LEFT knee in [facility] 3 months ago. He has been doing this for many years. - Seeing cardiology through [facility]. Had an ablation done early this year and is gettinga holter monitor in April. - Living in [facility]. With his . This is [place] hours away near [place]. - Tried living in [place] for the [place] but the dust was [...] - he and his walk almost daily. - EMG done at [facility] clinic of neurology was normal. - SLEEP APNEA evaluation was a couple years ago and he did a home monitor. He cannot tolerate the CPAP. I wont put anything on my face. -He is no longer using hydroxyzine for itching as he is no longer itching since stopping his [place]. - He was on on NORCO for 5 years prior to switching to buprenorphine. He does had escalated to 60mg daily. - He has had many different injections in the past and none have been helpful. He is not interested in repeating these. [place] MARSH BUGGY OPERATOR REVIEWED TODAY: YES SUBUTEX 8MG #30 02/17/2022 NORCO 10MG #150 02/10/2022 UDS and CONTRACT DONE on 09/23/2021 CONTRACT & 05/20/2021 UDS MEDICATIONS FOR PAIN: Subutex 8mg daily FLEXERIL 5-10MG PRN NIGHT HYDROXYZINE 25MG TID [...] L5-S1. Mild foraminal stenoses at multiple levels. Deil-yj-ztufjjms bilateral foraminal stenoses at L2-L3. Moderate right [...] 2. Spinal cord stimulator device. EMG @ [facility] OF NEUROLOGY 01/04/2022: NORMAL STUDY Medications: Current Outpatient Medications Medication Sig Dispense Refill ??? buprenorphine (SUBUTEX) 8 MG SUBL sub[address]ual tablet Place 1 tablet (8 mg) under the tongue daily30 tablet 0 ??? cyclobenzaprine (FLEXERIL) 5 MG tablet Take 1-2 tablets (5-10 mg) by mouth 3 times daily as needed for muscle spasms 150 tablet 0 ??? hydrOXYzine (VISTARIL) 25 MG capsule Take 1 capsule (25 mg) by mouth 3 times daily as needed foritching 90 capsule 1 ??? naloxone (NARCAN) 4 MG/0.1ML nasal spray [place] 1 spray (4 mg) into one nostril alternating nostrils once as needed for opioid reversal every 2-3 minutes until assistance arrives 0.2 mL 0 ??? acetaminophen (TYLENOL) 500 MG tablet Take [...] and start 02/10/22 165 tablet 0 ??? torsemide (DEMADEX) 20 MG tablet [...] transfer of care from Marivel Cavazos at [facility] to Dr. Perez and then to myself. [...] like to discuss having this removed. - buprenorphine-naloxone (ZUBSOLV) 2.9-0.71 MG SUBL SL tablet; Take 1 tablet by mouth 3 times daily Dispense: 90 tablet; Refill: 0 2. Uncomplicated opioid dependence [...] medication is not indicated for chronic termite treater helper pain because the body gets used to [...] agreed to a trial of subutex and was able to do a home induction onto this about 3 weeks ago.I let him know that he needs to commit to this for at least 6 months as it takes time for the brain to heal from halfway traditional opioid use. He does not like the taste of the Subutex tablet therefore we are going to try a different brand called Zubsolv for the next month. I am also increasing his dose from 8 mg of Subutex to an equivalent dose of 12 mg of Zubsolv. - buprenorphine-naloxone (ZUBSOLV) 2.9-0.71 MG SUBL SL tablet; Take 1 tablet by mouth 3 times daily Dispense: 90 tablet; Refill: 0 3. Degeneration of lumbar intervertebral disc He is asking for a prescription for koco-[id number]-[id number] Tylenol. Let him know that the maximum dose of this is 3000 mg/day. - acetaminophen (TYLENOL) 500 MG tablet; Take 2 tablets (1,000 mg) by mouth every 8 hours as needed for mild pain Dispense: 160 tablet; Refill: 2 4. Chronic bilateral low back pain with bilateral sciatica - acetaminophen (TYLENOL) 500 MG tablet; Take 2 tablets (1,000 mg) by mouth every 8 hours as needed for mild pain Dispense: 160 tablet; Refill: 2 - buprenorphine-naloxone (ZUBSOLV) 2.9-0.71 MG SUBL SL tablet; Take 1 tablet by mouth 3 times daily Dispense: 90 tablet; Refill: 0 5. Therapeutic opioid induced constipation He is reporting increased constipation since switching from [place] to buprenorphine. I let him know that this is very unusual and that typically constipation resolves when switching from traditional opiate to buprenorphine. I am recommending he try Benefiber for a few months and see if things improve. Rosy pateljay consider Linzess in the future if he continues to have constipation. - bulk laxative (BENEFIBER DRINK MIX) packet; Take 1 packet by mouth daily Dispense: 30 packet; Refill: 4 6. Encounter for long-term (current) use of high-risk medication High Risk Drug Monitoring? YES Drug being monitored: Suboxone Reason for drug: Opioid Use Disorder What is being monitored?: Dosage, Cravings, Trigger, side effects, and abstinence. MEDICATIONS: Orders Placed This Encounter Medications ??? acetaminophen (TYLENOL) 500 MG tablet Sig: Take 2 tablets (1,000 mg) by mouth every 8 hours as needed for mild pain Dispense: 160 tablet Refill: 2 ??? DISCONTD: buprenorphine-naloxone (ZUBSOLV) 2.9-0.71 MG SUBL SL tablet Sig: Take 90 tablets by mouth 3 times daily Dispense: 90 tablet Refill: 0 NADEAN: [id number] ??? bulk laxative (BENEFIBER DRINK MIX) packet Sig: Take 1 packet by mouth daily Dispense: 30 packet Refill: 4 ??? buprenorphine-naloxone (ZUBSOLV) 2.9-0.71 MG SUBL SL tablet Sig: Take 1 tablet by mouth 3 times daily Dispense: 90 tablet Refill: 0 NADEAN: [id number] FOLLOW UP: April @ 9:30AM - this will be a TELEPHONE visit as he does not have wifi and [place]5 [place] away. Phone call contact time: Call started at 910 Call ended at 933 BILLING TIME DOCUMENTATION: The total TIME spent on this patient on the date of the encounter/appointment was 42 minutes. TOTAL TIME includes: Time spent preparing to see the patient (reviewing records and tests) - 4 min Time spent face to face (or over the phone) with the patient - 23 min Time spent ordering tests, medications, procedures and referrals - 3 min Time spent Referring and communicating with other healthcare professionals - 0 min Time spent documenting clinical information in Epic - 12 min DARA BUCKLEY MD Pain Management & Addiction Medicine documented in this encounter Plan of Treatment Upcoming Encounters Date Type Specialty Care Team Description 04/26/2022 Virtual Visit [facility] [place] [address] [place], [place] [address] (Wo rk) documented as of this encounter Visit Diagnoses Diagnosis Chronic pain syndrome - Primary Uncomplicated opioid dependence (H) Opioid type dependence, unspecified Degeneration of lumbar intervertebral di sc Degeneration of lumbar or lumbosacral in tervertebral disc Chronic bilateral low back pain with mariel ateral sciatica Therapeutic opioid induced constipation Encounter for long-term (current) use of high-risk medication Encounter for long-term (current) use of other medications documented in this encounter Care Teams Supervisor Of Research Relationship Specialty Start Date End Date Zhang Masterson PCP - General Family Medicine 05/19/[address] [place] [address] Tony Gray MD Referring Physician Orthopedics 10/01/14 Conner Harper MD MD Orthopedics 10/01/[address] [place], [place] [id number] Marivel Cavazos, Assigned Surgical Provider [address] [place], [place] [id number] documented as of this encounter
--- OUTSIDE RECORDS SUMMARY | 2022-04-22 09:41 | XMS_ITS | Encounter Summary ---
:1955 Author Organization [place] Address [address] [place] [address] Care Team Providers Name Role Phone Tony Gray MD Unavailable Conner Harper MD Unavailable Marivel Cavazos PA-C Unavailable Zhang Masterson Primary Care Provider Reason for Visit Reason Onset Date Comments Refill Request 10/29/2021 Encounter Details Date Type Department Care Team Description 10/29/2021 Refill [facility] Pain Ortiz Perez Refill [place] [address] [place] [address] [place] [address] [phone] Social History Tobacco Use Types Packs/Day Years [...] Telephone Encounter - Ortiz Perez MD - 10/29/2021 3:50 PM CDT Hydroxyzine refill approved. DO Kary Campuzano [facility] Telephone Encounter - Danielle Jain CMA - 10/29/2021 1:31 PM CDT Received fax request from [facility] - [place], [place] - [address] pharmacy requesting refill(s) for hydrOXYzine (VISTARIL) 25 MG capsule Last refilled on 10/15/2021 Pt last seen on 10/15/2021 Next appt scheduled for NA Will facilitate refill. HEATHER Koch [facility] documented in this encounter Plan of Treatment Upcoming Encounters Date Type Specialty Care Team Description 04/26/2022 Virtual Visit Pain & [place] [address] [place], [place] [address] (Wo rk) documented as of this encounter Visit Diagnoses Diagnosis Chronic pain syndrome Degeneration of lumbar intervertebral di sc Degeneration of lumbar or lumbosacral in tervertebral disc Chronic bilateral low back pain with mariel ateral sciatica documented in this encounter Care Teams Territory Sales Representative Relationship Specialty Start Date End Date Zhang Masterson PCP - General Family Medicine 05/19/[address] [place] [address] Tony Gray MD Referring Physician Orthopedics 10/01/14 Conner Harper MD MD Orthopedics 10/01/[address] [place] [address] Warnsholz, Marivel B, Assigned Surgical Provider [address] [place] [address] documented as of this encounter
--- OUTSIDE RECORDS SUMMARY | 2022-04-22 09:41 | XMS_ITS | Encounter Summary ---
:1955 Author Organization [place] Address [address] [place] [address] Care Team Providers Name Role Phone Tony Gray MD Unavailable Conner Harper MD Unavailable Marivel Cavazos PA-C Unavailable Zhang Masterson Primary Care Provider Reason for Visit Reason Onset Date Comments Medication Question 04/01/2022 Encounter Details Date Type Department Care Team Description 04/01/2022 Telephone [facility] Pain Jessica Buckley MD Medication Question Management Center [address] [place] [address] [place] [address] [place] [address] Social History Tobacco Use Types Packs/Day Years Used Date Smoking Tobacco: Former Cigarettes Smokeless Tobacco: Never Alcohol Use Standard Drinks/Week Comments Never 0 (1 standard drink = 0.6 oz pure alcoho l) Sex Assigned at Date Recorded Not on file documented as of this encounter Miscellaneous Notes Telephone Encounter - Jayna Mahajan CMA - 04/01/2022 9:36 AM CDT Faxed past 3 progress notes to number below. Eri Mahajan CMA [facility] Telephone Encounter - Gi Irwin, CARLINE - 04/01/2022 9:27 AM CDT Call placed to Psychiatric Secretary Yulisa who is requesting OV notes so she can review and authorize med. OV notes for 02/17, 03/02 and 03/24 faxed Printed and faxed to: [phone] Gi Andino RN Student Ambassador [facility] Telephone Encounter - Elva Menendez - 04/01/2022 9:13 AM CDT [facility] Center Phone Message May a detailed message be left on voicemail: yes Reason for Call: Medication Question or concern regarding medication Prescription Clarification Name of Medication: Benefiber & Zubsolv Prescribing Provider: Rosanna Dennis is working prior authorization for these medications and she needs to know why they were prescribed and changed in order for her to get approval. Please call her back. Thanks. documented in this encounter Plan of Treatment Upcoming Encounters Date Type Specialty Care Team Description 04/26/2022 Virtual Visit Pain & [place] [address] [place], [place] [address] (Wo rk) documented as of this encounter Visit Diagnoses Not on filedocumented in this encounter Care Teams Respiratory Therapy Assistant Relationship Specialty Start Date End Date Zhang Masterson PCP - General Family Medicine 05/19/[address] [place] [address] Tony Gray MD Referring Physician Orthopedics 10/01/14 Conner Harper MD MD Orthopedics 10/01/14 [facility] [place] [address] Marivel Cavazos, Assigned Surgical Provider [address] [place] [address] documented as of this encounter
--- OUTSIDE RECORDS SUMMARY | 2022-04-22 09:41 | XMS_ITS | Clinical Summary ---
:1955 Author Organization [facility] [place] [address] Care Team Providers Name Role Phone Tony Gray MD Unavailable Kay Irwin OD Unavailable Zhang Masterson MD Primary Care Provider Allergies Active Allergy Reactions Severity Noted Date Comments Fentanyl Shortness Of Breath, High 05/06/2011 Dyspnea Gabapentin Hives, Angioedema 01/27/2012 Other reac tion(s): Angioedema Methadone Rash Low 05/06/2011 Oxycodone-Acetaminophe Rash Low 05/06/2011 n Oxycodone Hives High 06/06/2011 Sulfamethoxazole-Trime *Unknown - Pt Doesn't 1 Other reaction(s): thoprim Remember *Unknown - Pt D oesn't Remember Tapentadol Atopic Dermatitis, High 03/01/2017 Other sheila ction(s): Hives, Itching Atopic Dermat itis Venom-Honey Bee Edema High 06/06/2011 Other reacti on(s): Edema Medications Medication Sig Dispensed Refills Start End Status Date Date hydrALAZINE TAKE 1 TABLET(50 360 Tablet 0 03/18/20 Active (APRESOLINE TABLET) MG) BY MOUTH FOUR 22 50 mg TIMES DAILY tabletIndications: HTN (hypertension) amLODIPine Take 1 Tablet (5 90 Tablet 03/28/20 Ac tive (NORVASC) 5 mg mg) by mouth once 22 tabletIndications: daily. HTN (hypertension) acetaminophen Take 1,000 mg by 0 03/24/20 Active (TYLENOL EXTRA mouth. 22 STRGTH) 500 mg tablet buprenorphine HCL Place 8 mg under 0 02/18/20 Active (SUBUTEX) 8 mg the tongue. 22 tablet naloxone (NARCAN) 4 Inhale 4 mg into 0 12/15/19 Active mg/actuation nasal affected 22 spray nostril(s). clobetasol 0.05% Apply topically 45 g 2 03/28/20 Active (TEMOVATE 0.05% to affected 22 OINTMENT) 0.05 % area(s) two times ointmentIndications daily. : Rash HYDROcodone-acetami Take 2 Tablets by 0 Discontinued nophen (NORCO) mouth 3 times 022 ( *Patient 5-325 mg per tablet daily if needed states no for Pain. Max longer acetaminophen taking /Not on dose: 4000 mg in sen ding 24 hrs. facility l ist) hydrOXYzine pamoate Take 25 mg by 0 Discontinued (VISTARIL) 25 mg mouth 3 times 022 (*Patient capsule daily if needed. sta [facility] no longer taking/Not on sending facility l ist) triamcinolone APPLY TO ARMS 0 07/27/19 Di scontinued (ARISTOCORT; 1-2X DAILY FOR 2 (*Patient KENALOG) 0.1 % WEEKS AT A TIME , states no cream TAKE 2 WEEK OFF , dominick osorio THEN REPEAT takin g/Not on NEEDED FOR FLARES se nding facility l ist) amLODIPine TAKE 1 TABLET(5 30 Tablet 0 03/22/20 Dis continued (NORVASC) 5 mg MG) BY MOUTH (R eorder tabletIndications: EVERY DAY ( E-cancel not HTN (hypertension) s ent)) buprenorphine-nalox Take 1 Tablet by 0 03/24/2003/20 Discontinued one (Zubsolv) mouth three times (*Patient 2.9-0.71 mg subl daily. sta [facility] no longer taking/Not on sending facility l ist) cyclobenzaprine Take 5-10 mg by 0 12/15/19 Discontinued (FLEXERIL) 5 mg mouth. (*Pa tient tablet states no longer taking/Not on sending facility l ist) doxycycline Take 1 Capsule 20 Capsule 2 03/29/20 Ex pired monohydrate (100 mg) by mouth 22 022 (MONODOX) 100 mg two times daily capsuleIndications: for 10 days. Rash Active Problems Problem Noted Date SVT (supraventricular tachycardia) 03/28/2022 PVC's (premature ventricular contractions) 08/10/2021 Class 2 obesity in adult 02/25/2021 Chronic diastolic heart failure 02/25/2021 Acute on chronic diastolic (congestive) heart failure 02/25/2021 SOB (shortness of breath) 02/24/2021 LENCHO (acute kidney injury) 02/24/2021 History of tobacco abuse 12/04/2019 HTN (hypertension) 12/04/2019 Abnormal stress test 12/04/2019 History of staphylococcal infection 08/19/2011 Encounters Date Type Specialty Care Team Description 03/28/2022 Office Visit Zhang Masterson MD Medic are ANNUAL (subsequent) Vi sit (Medicare Welln ess Visit) 03/28/2022 Telephone Zhang Masterson MD Medic ation Management (Needs a med fi lled) 03/28/2022 Travel 03/22/2022 Refill Zhang Masterson MD Refil l Request (Amlodipine) 03/21/2022 Telephone Zhang Masterson MD 03/21/2022 Refill Zhang Masterson MD Refil l Request (Amlodipine) 03/18/2022 Refill Evelyn Nelsonill Chanell Parks MD (Hydralazine) 03/15/2022 Refill Evelyn Nelsonill Chanell Parks MD (Amlodipine) 02/04/2022 Orders Only Scanner <No scans attac hed> 01/21/2022 Orders Only Scanner <No scans attac hed> 01/21/2022 Orders Only Scanner <No scans attac hed> 01/21/2022 Lab Requisition Unknown, Doctor from Last 3 Months Immunizations Name Administration Dates Next Due COVID-19 vaccine ([email or web address] 30mcg/0.3mL) PF, 1, 10/05/2020 SHARON Tdap 05/15/2012 Family History Medical History Relation Name Comments Stroke Father Heart Disease Mother 4 vessel CABG at 65 Relation Name Status Comments Brother Alive Daughter Alive Father Alive Mother Alive heart, Sister Alive Son Alive Social History Tobacco Use Types Packs/Day Years Used Date Former Smoker Cigarettes 1.5 29 Quit: 06/19/19 Smokeless Tobacco: Never Used Alcohol Use Standard Drinks/Week Comments No 0 (1 standard drink = 0.6 oz pure alcoho l) Sex Assigned at Date Recorded Not on file COVID-19 Exposure Response Date Recorded In the last 10 days, have you been in contact with No / Unsu re 03/28/2022 9:57 AM CDT someone who was confirmed or suspected to have Coronavirus/COVID-19? 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 Respiratory Rate 18 03/28/2022 10:17 AM CDT Oxygen Saturation 99% 03/28/2022 10:17 AM CDT Inhaled Oxygen Concentration - - Weight 89.7 kg (197 lb 12.8 oz) 03/28/2022 10:17 AM CDT Height 170.2 cm (5' 7) 03/28/2022 10:17 AM CDT Body Mass Index 30.98 03/28/2022 10:17 AM CDT Plan of Treatment Health Maintenance Due Date Last Done Comments Pneumococcal series for age 65+ (1 1962 - PCV) Zoster (shingles) series for age 0309/13/1975 50+ (1 of 2) COVID-19 vaccine series (4 - 07/02/2021 05/07/2021, 021, Booster for Pfizer series) 10/05/2020 Influenza for age 65+ 02/17/2022 Tetanus booster 05/15/2022 05/15/2012, 05/15/2012 Colonoscopy through age 75 09/20/2022 09/20/2012, 3 BMI (ht and wt on same day) for 03/28/2023 03/28/2022, 03/19, age 18+ 03/25/2021, Additional history exists Depression screening for age 12+ 03/28/2023 03/28/2022, 03/2022, 12/30/2020, Additional history exists Medicare Wellness for age 65+ 03/28/2023 03/28/2022 Lipids for age 45-75 03/28/2027 03/28/2022, 12/04/2019, 01/15/2018, Additional history exists Tdap Completed 05/15/2012 AAA screening age 55-77 Completed 10/06/2020, 03/24/2014 Hepatitis C screening for age Completed 03/28/2022 18-79 Procedures Procedure Name Priority Date/Time Associated Diagnosis Comme nts LIPID PANEL W Routine 03/28/2022 11:10 Hyperlipidemia, Results for this REFLEX MEASURED LDL AM CDT unspecified procedur e are in hyperlipidemia type the resu lts section. HEMOGLOBIN A1C Routine 03/28/2022 11:10 Elevated glucose Resul ts for this SCREENING AM CDT procedure are i n the results section. BASIC METABOLIC Routine 03/28/2022 11:10 HTN (hypertension) Re sults for this PANEL AM CDT procedure are i n the results section. ANTI HCV Routine 03/28/2022 11:10 Need for hepatitis C Res ults for this AM CDT screening test procedure are in the results section. PSA TOTAL SCREEN Routine 03/28/2022 11:10 Screening for prosta te Results for this AM CDT cancer procedure are i n the results section. SCAN-LABORATORY 02/04/2022 12:00 Results for this REPORT AM CDT procedure are i n the results section. CRYSTAL ID BODY Routine 01/21/2022 2:58 PM Result s for this FLUID NO URINE CDT procedure are in the results section. SCAN-LABORATORY 01/21/2022 12:00 Results for this REPORT AM CDT procedure are i n the results section. SCAN-OPERATIVE/PROC 01/21/2022 12:00 Resu lts for this EDURE REPORT AM CDT procedure are i n the results section. from Last 3 Months Results HEMOGLOBIN A1C SCREENING (03/28/2022 11:10 AM CDT) P athologist Signature HEMOGLOBIN A1C 5.1 <=6.4 % 03/28/2022 [facility] SCREENING 10:10 PM CDT LABORATORY-[facility] LABORATORY Specimen Anatomical Collection Method / Collection Time Recei ramiro Time (Source) Location / Volume Laterality Blood BLOOD SPECIMEN / Venipuncture / 03/28/2022 11:10 03/28 Unknown Unknown AM CDT 11:12 AM CDT Narrative [facility] LABORATORY-CENTRAL LABORAT ORY - 03/28/2022 10:10 PM CDT ? (<5.7%) ?Normal ? (5.7% to 6.4%) ? Indicates pr ediabetes ? (>=6.5%) ? Confirms diabetes Falsely low levels may be seen with: Recent Transfusion, Recent Significant B lood Loss, Hemolytic Diseases, or Falsely elevated levels may be seen with : Untreated Anemias, Splenectomy Zhang Masterson MD CHEMISTRY Performing Organization Address City/State/ZIP Code Phon e Number [facility] [address] [place] [address] LABORATORY-CENTRAL 2000 LABORATORY LIPID PANEL W REFLEX MEASURED LDL (03/28/2022 11:10 AM CDT) [facility] gist Method Time Signature CHOLESTEROL,TOTAL 138 100 - 199 03/28/2022 [place] mg/dL 12:[address] [facility] LABORATORY TRIGLYCERIDES 58 <150 03/28/2022 [place] mg/dL 12:19 PM [facility] LABORATORY HDL CHOLESTEROL 41 >40 mg/dL 03/28/2022 [place] 12:19 PM [facility] LABORATORY NON-HDL 97 <145 03/28/2022 [place] CHOLESTEROL mg/dl 12:19 PM [facility] LABORATORY CHOL/HDL RATIO 3.37 <4.50 03/28/2022 [place] 12:19 PM [facility] LABORATORY LDL CHOLESTEROL 85 <=130 03/28/2022 [place] mg/dL 12:19 PM [facility] LABORATORY VLDL CHOLESTEROL 12 <=30 03/28/2022 [place] mg/dL 12:19 PM [facility] LABORATORY PROVIDER ORDERED RANDOM 03/28/2022 [place] STATUS 12:19 PM [facility] LABORATORY Specimen Anatomical Collection Method / Collection Time Recei ramiro Time (Source) Location / Volume Laterality Blood BLOOD SPECIMEN / Venipuncture / 03/28/2022 11:10 03/28 Unknown Unknown AM CDT 11:12 AM CDT Zhang Masterson MD CHEMISTRY Performing Organization Address City/[facility]/ZIP Code Phon e Number [facility] LABORATORY [address] [place] [address] ANTI HCV (03/28/2022 11:10 AM CDT) Patholo gist Method Time Signature HEPATITIS C Non-Reacti Non-Reacti 03/28/2022 [facility] ANTIBODY ve ve 9:21 PM CDT LABORATORY-[facility] Comment: Antibodies to HCV not detected; does not exclude the possibility of exposure to HCV. Specimen Anatomical Collection Method / Collection Time Recei ramiro Time (Source) Location / Volume Laterality Blood BLOOD SPECIMEN / Venipuncture / 03/28/2022 11:10 03/28 Unknown Unknown AM CDT 11:12 AM CDT Zhang Masterson MD SEND OUTS Performing Organization Address City/[facility]/ZIP Code Phon e Number [facility] [address] [place] [address] LABORATORY-CENTRAL 2000 LABORATORY (ABNORMAL) BASIC METABOLIC PANEL (03/28/2022 11:10 AM CDT) P athologist Signature SODIUM 137 135 - 145 03/28/2022 [place] mmol/L 12:18 PM [facility] POTASSIUM 4.4 3.5 - 5.0 03/28/2022 [place] mmol/L 12:18 PM [facility] CHLORIDE 104 98 - 110 03/28/2022 [place] mmol/L 12:18 PM [facility] CO2,TOTAL 25 21 - 31 03/28/2022 [place] mmol/L 12:18 PM [facility]T [facility] ANION GAP 8 5 - 18 03/28/2022 [place] 12:18 PM CDT [facility] GLUCOSE 89 65 - 100 03/28/2022 [place] mg/dL 12:18 PM [facility] CALCIUM 9.2 8.5 - 10.5 03/28/2022 [place] mg/dL 12:18 PM [facility]T [facility] BUN 17 8 - 25 03/28/2022 [place] mg/dL 12:18 PM [facility] CREATININE 1.07 0.72 - 03/28/2022 [place] 1.25 mg/dL 12:18 PM [facility] LABORATORY BUN/CREAT RATIO 16 10 - 20 03/28/2022 [place] 12:18 PM [facility] LABORATORY eGFR 77 (L) >90 03/28/2022 [place] mL/min/1.7 12:18 PM [facility] 3m2 LABORATORY Comment: As of 2021, eGFR is calcu lated by the CKD-EPI creatinine equation without race adjustment. eGFR can be inf luenced by muscle mass, exercise, and diet. The reported eGFR is an estimation only and is only applicable if the renal function is stable. Specimen Anatomical Collection Method / Collection Time Recei ramiro Time (Source) Location / Volume Laterality Blood BLOOD SPECIMEN / Venipuncture / 03/28/2022 11:10 03/28 Unknown Unknown AM CDT 11:12 AM CDT Zhang Masterson MD CHEMISTRY Performing Organization Address City/State/ZIP Code Phon e Number [facility] LABORATORY [address] [place] [address] PSA TOTAL SCREEN [g0103.0] (03/28/2022 11:10 AM CDT) athologist Signature PSA TOTAL 0.94 <4.00 03/28/2022 [facility] Ubalo (SCREEN) ng/mL 9:23 PM CDT LABORATORY-[facility] LABORATORY Specimen Anatomical Collection Method / Collection Time Recei ramiro Time (Source) Location / Volume Laterality Blood BLOOD SPECIMEN / Venipuncture / 03/28/2022 11:10 03/28 Unknown Unknown AM CDT 11:12 AM CDT Narrative [facility] LABORATORY-CENTRAL LABORAT ORY - 03/28/2022 9:23 PM CDT The [employer]rel PSA assay is a Chemiluminescent Microparticle Immunoassay(CMIA). Assay values ob tained with different assay methods nadege ot be used interchangeably due to differences in assay methods and reagent specificity. Zhang Masterson MD LABORATORY Performing Organization Address City/State/ZIP Code Phon e Number [facility] [address] [place], [place] [address] [place] [address] LABORATORY-CENTRAL 2000 LABORATORY SCAN-LABORATORY REPORT (02/04/2022 12:00 AM CDT)Only the most recent of2 results within the time period is included. Narrative This result has an attachment that is no t available. Scanner OTHER CRYSTAL ID BODY FLUID NO URINE (01/21/2022 2:58 PM CDT) [facility] gist Method Time Signature MONOSODIUM URATES None Seen None Seen, 01/22/2022 [facility] Present, 7:33 AM CDT LABORATORY-CE Not NTRAL Present LABORATORY CALCIUM None Seen None Seen, 01/22/2022 [facility] PYROPHOSPHATES Present, 7:33 AM CDT LABORATORY-CE Not NTRAL Present LABORATORY OTHER CRYSTALS No crystals 01/22/2022 [facility] seen 7:33 AM CDT LABORATORY-CE NTRAL LABORATORY SPECIMEN SOURCE Left Knee 01/22/2022 [facility] fluid 7:33 AM CDT LABORATORY-CE NTRAL LABORATORY Specimen Anatomical Collection Method Collection Time Receive d Time (Source) Location / / Volume Laterality Body Fluid (Left Client Collect / 01/21/2022 2:58 PM 0 01/21/2022 8:20 Knee Fluid) Unknown CDT PM CDT Doctor Unknown BODY FLUID Performing Organization Address City/State/ZIP Code Phon e Number [facility] [address] [place] [address] LABORATORY-CENTRAL 1999 LABORATORY SCAN-OPERATIVE/PROCEDURE REPORT (01/21/2022 12:00 AM CDT) Narrative This result has an attachment that is no t available. Scanner OTHER from Last 3 Months Insurance Payer Benefit Plan / Subscriber ID Effective Phone Address T ype Group Dates WC WORK[employer] [id number] 2020-Pres [phone] [address] [employer]UT[employer] ent [address] [place] [address] MEDICARE PART MEDICARE PART A [id number] 2008-Prese A TTN: CLAIMS A - HB USE HB ONLY nt [address] [place] [address] MEDICARE PART MEDICARE PART B [id number] 2016-Prese A TTN: CLAIMS B - HB USE HB ONLY nt [address] [place] [address] MEDICARE - PB MEDICARE PB [id number] 2021-Prese ATTN: CLAIMS USE ONLY ONLY nt [address] [place] [address] BLUE CROSS BLUE CROSS OF [id number] 2021-Prese [address] [place] [address] [place] [address] BLUE CROSS BLUE CROSS [id number] 2016-[place] [address] [address] [place] [address] [place], [place] ONLY [id number] [phone] (Home) [place] [id number] Tremaine Plunkett Personal/Family Self 1955 [phone] ([address]) [place] [id number] Tremaine Plunkett Workers Comp Self 1955 [phone] (Home) [place] [id number] Advance Directives Latest Code Status on File Code Status Date Activated Date Inactivated Comments Full Code 08/10/2021 10:05 AM 08/10/2021 5:00 PM Code Status Discussion: Reviewed Preferences Full Code 02/25/2021 12:20 AM 02/26/2021 11:13 AM Code Status Discussion: Discussed Full Code 12/04/2019 8:52 AM 12/04/2019 7:16 PM Full Code 07/01/2015 10:13 AM 07/01/2015 4:51 PM Full Code 07/01/2015 7:13 AM 07/01/2015 10:13 AM Care Teams Cloth Doubling Machine Operator Relationship Specialty Start Date End Date Zhang Masterson MD PCP - General Family Practice 11/19/[address] [place] [address] Tony Gray MD Surgery - Orthopedic 06/06/11 Kay Irwin OD Healthcare Administrator 08/13/[address] [place] [address]
--- OUTSIDE RECORDS SUMMARY | 2022-04-22 09:41 | XMS_ITS | Encounter Summary ---
:1955 Author Organization [facility] Address [address] [place] [address] Care Team Providers Name Role Phone Tony Gray MD Unavailable Conner Harper MD Unavailable Marivel Cavazos PA-C Unavailable Zhang Masterson Primary Care Provider Reason for Visit Reason Onset Date Comments Medication Question 02/17/2022 Encounter Details Date Type Department Care Team Description 02/17/2022 [facility] Jessica Morrissey MD Medication Question Management [id number] [place], [place] [id number] [address] [place] [address] [phone] Social History Tobacco Use Types Packs/Day Years [...] Telephone Encounter - Gi Irwin RN - 02/17/2022 1:57 PM CDT Call placed to pharmacy regarding orders clarification. Ordering provider is aware of rx, this will be replacing the NORCO that was previously prescribed byprevious prescriber who has left the practice/orginization. Pt will be on Subutex moving forward. Pharmacy will begin processing new rx Gi Andino RN Director Of Optimization [facility] Telephone Encounter - Elva Menendez - 02/17/2022 12:51 PM CDT [facility] Phone Message May a detailed message be left on voicemail: yes Reason for Call: Medication Question or concern regarding medication Prescription Clarification Name of Medication: buprenorphine (SUBUTEX) 8 MG SUBL sublingual tablet Prescribing Provider: Rosanna Buckley Pharmacy: [facility] What on the order needs clarification? Pharmacy said that Pt is on Hydrocodone from another provider. Is this replacing the Hydrocodone? Please call pharmacy back to let them know. documented in this encounter Plan of Treatment Upcoming Encounters Date Type Specialty Care Team Description 04/26/2022 Virtual Visit [place] & [place] [address] [place], [place] [address] (Wo rk) documented as of this encounter Visit Diagnoses Not on filedocumented in this encounter Care Teams Seed Production Field Supervisor Relationship Specialty Start Date End Date Zhang Masterson PCP - General Family Medicine 05/19/[address] [place] [address] Tony Gray MD Referring Physician Orthopedics 10/01/14 Conner Harper MD MD Orthopedics 10/01/[address] [place] [address] Marivel Cavazos, Assigned Surgical Provider [address] [place] [address] documented as of this encounter
--- OUTSIDE RECORDS SUMMARY | 2022-04-22 09:42 | XMS_ITS | Encounter Summary ---
:1955 Author Organization [place] Address [address] [facility] [place] [address] Care Team Providers Name Role Phone Tony Gray MD Unavailable Conner Harper MD Unavailable Marivel Cavazos PA-C Unavailable Zhang Masterson Primary Care Provider Reason for Visit Reason Onset Date Comments Opioid Refill 08/13/2021 HYDROcodone-acetamin ophzain (NORCO) 10-325 MG per tablet Refill Request 08/13/2021 hydrOXYzine (VISTARI L) 25 MG capsule-refill at pharmacy Encounter Details Date Type Department Care Team Description 08/13/2021 [facility] Ortiz Perez Opijovon id Refill Pain Management MD Micheal (HYDROcodone-acetamin [place] [address] [place] (NORCO) 10-325 [address] [place] [address] MG per tablet); [address] [place] [address] (hydrOXYzine [phone] (VISTARIL) 25 M G capsule-refill at pharmacy) [...] with No / Unsure 07/14/2021 9:31 AM SURGICAL SUPPLIES STERILIZER someone who was confirmed or suspected to have Coronavirus / COVID-19? documented as of this encounter Miscellaneous Notes Telephone Encounter - Ortiz Perez MD - 08/19/2021 12:14 PM SURGICAL SUPPLIES STERILIZER Will discuss with patient at currently scheduled f/up. Ortiz Perez DO [facility] ICAL SUPPLIES STERILIZER Telephone Encounter - Paul Plunkett MD - 08/16/2021 9:35 AM SURGICAL SUPPLIES STERILIZER Unclear why hydroxyzine is being ordered. There [...] start 08/18/21 Authorizing Provider: PAUL PLUNKETT MD [facility] ICAL SUPPLIES STERILIZER Telephone Encounter - Gi Irwin RN - 08/13/2021 1:17 PM SURGICAL SUPPLIES STERILIZER Routing to provider to review medication prepped per below HYDROcodone-acetaminophen (NORCO) 10-325 MG per tablet#150, Refill:0 Sig:Take 1-2 tablets by mouth 3 times daily as needed for severe pain - Oral Last picked up 07/19/21 with start on 07/20/21 Due: OK to fill 08/16/21 and start 08/18/21 Per last OV note 07/14/21: [place] 10-325, 5 tabs daily, #150/month. They will call and let us know howmany tablets they have from their prior prescription. [facility] [place] [address] Gi Andino RN Theatre Arts Professor [facility] ICAL SUPPLIES STERILIZER Telephone Encounter - Jayna Mahajan CMA - [...] opioid agreement: 05/19/21 E-prescribe to: [facility] [address] Will route to nursing pool for review and preparation of prescription(s). ICAL SUPPLIES STERILIZER Telephone Encounter - Cely Toscano - 08/13/2021 8:31 AM CST Reason for call: Medication If this is a refill request, has the caller requested the refill from the pharmacy already? No Will the patient be using a [facility]? [place] of the pharmacy and phone number for the current request: [facility] [address] Name of the medication requested: hydrOXYzine (VISTARIL) 25 MG capsule HYDROcodone-acetaminophen (NORCO) 10-325 MG per tablet Other request: none Phone number to reach patient: Cell number on file: Telephone Information: Best Time: anytime Can we leave a detailed message on this number? YES Travel screening: Not Applicable Cely Bustos Food Service Tray Attendant [facility] ICAL SUPPLIES STERILIZER documented in this encounter Plan of Treatment Upcoming Encounters Date Type Specialty Care Team Description 04/26/2022 Virtual Visit Pain & [place] [address] [place], [place] [address] (Wo rk) documented as of this encounter Visit Diagnoses Diagnosis Chronic pain syndrome documented in this encounter Care Teams Fiberglass Product Tester Relationship Specialty Start Date End Date Zhang Masterson PCP - General Family Medicine 05/19/[address] [place] [address] Tony Gray MD Referring Physician Orthopedics 10/01/14 Conner Harper MD MD Orthopedics 10/01/[address] [place], [place] [address] Marivel Cavazos, Assigned Surgical Provider [address] [place] [address] documented as of this encounter
--- OUTSIDE RECORDS SUMMARY | 2022-04-22 09:42 | XMS_ITS | Encounter Summary ---
:1955 Author Organization [place] Address [address] [facility] [place] [address] Care Team Providers Name Role Phone Tony Gray MD Unavailable Conner Harper MD Unavailable Marlee Coles MD Primary Care Provider [phone] Encounter Details Date Type Department Care Team Description 11/15/2020 Records - [facility] CONVERSION Provider, Histor ical Social History Tobacco Use Types Packs/Day Years Used Date Smoking Tobacco: Never Assessed Sex Assigned at Date Recorded Not on file documented as of this encounter Plan of Treatment Upcoming Encounters Date Type Specialty Care Team Description 04/26/2022 Virtual Visit Pain & [place] [address] [place], [place] [address] (Wo rk) documented as [...] on filedocumented in this encounter Care Teams Blocking Machine Operator Relationship Specialty Start Date End Date Marlee Coles MD PCP - General 02/10/15 05/18/21 [place] [address] [facility] [address] [place] [address] Tony Gray MD Referring Physician Orthopedics 10/01/14 Conner Harper MD MD Orthopedics 10/01/[address] [place], [place] [address] documented as of this encounter
--- OUTSIDE RECORDS SUMMARY | 2022-04-22 09:42 | XMS_ITS | Encounter Summary ---
:1955 Author Organization [place] Address [address] [facility] [place] [address] Care Team Providers Name Role Phone Tony Gray MD Unavailable Conner Harper MD Unavailable Marlee Coles MD Primary Care Provider [phone] Encounter Details Date Type Department Care Team Description 11/15/2020 Records - [facility] Provider, Histor ical Social History Tobacco Use Types Packs/Day Years Used Date Smoking Tobacco: Never Assessed Sex Assigned at Date Recorded Not on file documented as of this encounter Plan of Treatment Upcoming Encounters Date Type Specialty Care Team Description 04/26/2022 Virtual Visit Pain & [place] [address] [place], [place] [address] (Wo rk) documented as [...] on filedocumented in this encounter Care Teams Office Support Assistant Relationship Specialty Start Date End Date Marlee Coles MD PCP - General 02/10/15 05/18/21 [place] [address] [address] [address] Tony Gray MD Referring Physician Orthopedics 10/01/14 Conner Harper MD MD Orthopedics 10/01/14 [address] [place], [place] [address] documented as of this encounter
--- OUTSIDE RECORDS SUMMARY | 2022-04-22 09:42 | XMS_ITS | Encounter Summary ---
:1955 Author Organization [place] Address [address] [facility] [place] [address] Care Team Providers Name Role Phone Tony Gray MD Unavailable Conner Harper MD Unavailable Marlee Coles MD Primary Care Provider [phone] Reason for Visit Reason Comments Back Pain Encounter Details Date Type Department Care Team Description 10/07/2020 Hospital Encounter [facility] Alessandro Cavazosation of lumbar or lumbosacral intervertebral disc; Pain Center Marivel Hernadez PA-C Chronic pain syndrome; [address] [facility] [address] [facility] Degeneration of thoracic intervertebral disc; [place] [address] [place], [place] Opioid type dependence, continuous (H) 101 [address] [place], [place] [phone] (Work) [phone] Social History Tobacco Use Types Packs/Day Years [...] Continuous Use Pain location and description: See STEAM PRESSER note Radiation of pain: Buttocks bilaterally, lower legs. Gait disturbance: None reported, denies recent falls. Denies AD. Exacerbating factors: walking, sitting, standing Alleviating factors: Pain medications, rest, ice Associated symptoms: Sleep disturbance due to pain. Numbness in bilateral hands and feet, legs. Denies weakness, bowel or bladder incontinence, fever/chills, unexplained weight loss. Functional Symptoms: See STEAM PRESSER note Adverse effects of medications: Rash/itching. Denies constipation, drowsiness, dizziness, nausea/abdominal symptoms. Current treatment efficacy: Poor. Off opioids see below. Current treatment compliance: Good; denies self-escalation of doses and no early refill requests. UDT appropriate. Keeps appointment follow-ups with pain center. Purchased stationary bike uses 15-30 every morning - better tolerated than walking. Since the last Pain Center visit, he reports hospitalization in [place] for allergic reaction and was taken off most oral medications - see nurse phone call from 09/09/2020 was asked to sign release for medical records. He was admitted 09/07/2020 as he was concerned about Valley Fever but states he was never worked up for this and was told to stop his oral medications to stop his rash/itching. He then went to [place] for a few days to help his elderly parents and then returned back to [place] this month. Upon returning hepresented to ED 09/18/2020 as he felt burning/itching everywhere in his body: FINAL IMPRESSION: [facility] ED COURSE & MEDICAL DECISION MAKING: ED Course as of Sep 18 522MonSep 18, 2020 0210 Patient is an obese 65-year-old male with a history of hypertension, hyperlipidemia, recent admission end of August in [place] for what sounds like to be chest [...] Musculoskeletal- Gait and station: Ambulates independently. Opioid [place] Precautions: UDT- 06/10/20, results as expected Consent - 04/01/20 Agreement- 04/01/20 Pharmacy- as documented MACHINE SCALLOP CUTTER- reviewed 10/07/20 as expected Count- n/a Psychological evaluation n/a MME- currently 0 Pharmacogenetic testing n/a Imaging: EXAM: XR THORACIC SPINE 2 VWS LOCATION: [facility] DATE/TIME: 01/30/2019 9:09 AM [...] with Marivel in office Marivel Cavazos PA-C [facility] [address] [facility] [place] [address] 38 minutes spent on the date of [...] Cavazos PA-C Service: -- Author Type: Physician Analytical Clerk Filed: 10/07/2020 10:39 AM Date of Service: 10/07/2020 9:40 AM Status: Addendum Reflesher: Marivel Cavazos PA-C (Physician Analytical Clerk) Related Notes: Original Note by Marivel Cavazos PA-C (Physician Analytical Clerk) filed at 10/07/2020 10:37 AM Discontinued Vicodin [...] medicines you take. Include both prescription and vefg-ols-yiwloab medicines. Also tell them about any vitamins, [...] you have any questions about this medicine. [email or web address] IMPORTANT NOTE: This document tells you briefly how to take your medicine, but it does not tell you all there is to know about it.Your doctor or pharmacist may give you other documents about your medicine. Please talk to them if you have any questions.Always follow their advice. There is a more complete description of this medicine available in Bermudian.Scan this code on your smartphone or tablet or use the web address below. You can also ask your pharmacist for a printout. If you have any questions,please ask your pharmacist. ?? 2020 [employer]. Addendum Note - Anjali Naylor RN - 10/07/2020 9:40 AM CDT Addendum Note by Anjali Naylor RN at 10/07/2020 9:40 AM Author: Anjali Naylor RN Service: -- Author Type: Registered Nurse Filed: 10/07/2020 1:47 PM Date of Service: 10/07/2020 9:40 AM Status: Signed Reflesher: Anjali Naylor RN (Registered Nurse) Encounter addended by: Anjali Naylor RN on: 10/07/2020 1:47 PM Actions taken: Charge Capture section accepted documented in this encounter Plan of Treatment Upcoming Encounters Date Type Specialty Care Team Description 04/26/2022 Virtual Visit Pain & [place] [address] [facility] [place], [place] [address] (Wo ) documented as of this encounter Visit Diagnoses Diagnosis Degeneration of lumbar or lumbosacral in tervertebral disc Chronic pain syndrome Degeneration of thoracic intervertebral disc Degeneration of thoracic or thoracolumba r intervertebral disc Opioid type dependence, continuous (H) Opioid type dependence, continuous documented in this encounter Care Teams Scaffolding Helper Relationship Specialty Start Date End Date Marlee Coles MD PCP - General 02/10/15 05/18/21 [facility] [place] [address] [address] [address] Tony Gray MD Referring Physician Orthopedics 10/01/14 Conner Harper MD MD Orthopedics 10/01/14 [address] [facility] [address] [place], [place] [address] documented as of this encounter
--- OUTSIDE RECORDS SUMMARY | 2022-04-22 09:42 | XMS_ITS | Encounter Summary ---
:1955 Author Organization [place] Address [address] [facility] 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 Chris, Ortiz Procedures CT Lumbar Spine w/o Contrast CT Lumbar Spine w/o Contrast MD Micheal [address] [place] [address] Referral ID Status Reason Start Date Expiration Date Visits Requ ested Visits Authorized [id number] Closed 08/25/2021 08/25/2022 1 1 Encounter Details Date Type Department Care Team Description 10/21/2021 [facility] Ortiz Perez neration of lumbar intervertebral disc; Encounter [facility] MD Micheal Chronic bilateral low back pain with mariel ateral sciatica [address] [place] [phone] Social History Tobacco Use Types Packs/Day Years [...] Sig Dispensed Refills Start Date End Date amLODIPine (NORVASC) 5 MG 0 03/02/2021 tablet hydrALAZINE (APRESOLINE) Take 100 mg by 0 021 50 MG tablet mouth 2 times daily torsemide (DEMADEX) 20 MG 0 02/26/2021 tablet acetaminophen (TYLENOL) Take 1 tablet (500 120 tablet 0 03/0 02/202202/10/2022 500 MG tabletIndications: mg) by mouth every Degeneration of lumbar 6 hours as needed intervertebral disc, for mild pain Chronic bilateral low back pain with bilateral sciatica HYDROcodone-acetaminophen Take 1-2 tablets 150 tablet 0 05/0 07/202111/16/2021 (NORCO) 10-325 MG per by mouth [...] Pain & [place] [address] [place] [address] (Wo rk) documented as of this [...] device. ?? REJI FINCH MD SYSTEM ID: ??[id number] Narrative 10/21/2021 3:[address] LUMBAR [...] L5-S1. Mild foraminal stenoses at multiple levels. Bxjy-mp-dpotsife bilateral foraminal braeden noses at L2-L3. Moderate [...] L5-S1. Mild foraminal stenoses at multiple levels. Edne-ke-ctsupidz bilateral foraminal braeden noses at L2-L3. Moderate [...] stimulator device. REJI FINCH MD SYSTEM ID: [id number] Ortiz Perez MD IMG CT ORDERABLES documented in this encounter Visit Diagnoses Diagnosis Degeneration of lumbar intervertebral di sc Degeneration of lumbar or lumbosacral in tervertebral disc Chronic bilateral low back pain with mariel ateral sciatica documented in this encounter Care Teams Ug Designer Relationship Specialty Start Date End Date Zhang Masterson PCP - General Family Medicine 05/19/[address] [place] [address] Tony Gray MD Referring Physician Orthopedics 10/01/14 Conner Harper MD MD Orthopedics 10/01/[address] [place] [address] Marivel Cavazos, Assigned Surgical Provider [address] [place] [address] documented as of this encounter
--- OUTSIDE RECORDS SUMMARY | 2022-04-22 09:42 | XMS_ITS | Encounter Summary ---
:1955 Author Organization [place] Address [address] [facility] [place] [address] Care Team Providers Name Role Phone Tony [...] with No / Unsure 08/25/2021 9:32 AM UX INFORMATION ARCHITECT someone who was confirmed or suspected to have Coronavirus / COVID-19? documented as of this encounter Plan of Treatment Upcoming Encounters Date Type Specialty Care Team Description 04/26/2022 Virtual Visit Pain & [place] [address] [place], [place] [address] (Wo rk) documented as of this encounter Visit Diagnoses Not on filedocumented in this encounter Care Teams Environmental Associate Relationship Specialty Start Date End Date Zhang Masterson PCP - General Family Medicine 05/19/[address] [place] [address] Tony Gray MD Referring Physician Orthopedics 10/01/14 Conner Harper MD MD Orthopedics 10/01/[address] [place], [place] [address] Marivel Cavazos, Assigned Surgical Provider [address] [place] [address] documented as of this encounter
--- OUTSIDE RECORDS SUMMARY | 2022-04-22 09:42 | XMS_ITS | Encounter Summary ---
:1955 Author Organization [place] Address [address] [facility] [place] [address] Care Team Providers Name Role Phone Tony Gray MD Unavailable Conner Harper MD Unavailable Marlee Coles MD Primary Care Provider [phone] Encounter Details Date Type Department Care Team Description 11/19/2020 [facility] Provider, Histor ical Social History Tobacco Use Types Packs/Day Years Used Date Smoking Tobacco: Never Assessed Sex Assigned at Date Recorded Not on file documented as of this encounter Plan of Treatment Upcoming Encounters Date Type Specialty Care Team Description 04/26/2022 Virtual Visit Pain & [place] [address] [place], [place] [address] (Wo rk) documented as [...] on filedocumented in this encounter Care Teams Varnish Supervisor Relationship Specialty Start Date End Date Marlee Coles MD PCP - General 02/10/15 05/18/21 [place] [address] [place] [address] Tony Gray MD Referring Physician Orthopedics 10/01/14 Conner Harper MD MD Orthopedics 10/01/[address] [place], [place] [address] documented as of this encounter
--- OUTSIDE RECORDS SUMMARY | 2022-04-22 09:42 | XMS_ITS | Encounter Summary ---
:1955 Author Organization [place] Address [address] [place] [address] Care Team Providers Name Role Phone Tony Gray MD Unavailable Conner Harper MD Unavailable Marivel Cavazos PA-C Unavailable Zhang Masterson Primary Care Provider Reason for Referral - Pending Review Specialty Diagnoses / Procedures Referred By Contact Refer red To Contact Diagnoses Lumbar radiculopathy Degeneration of lumbar intervertebral disc Ortiz Perez Procedures EMG MD Micheal [address] [place] [address] Referral ID Status Reason Start Date Expiration Date Visits V isits Requested Authorized [id number] Pending 07/14/2021 07/14/2022 [address] Scan (Routine) - Pending Review Specialty Diagnoses / Procedures Referred By Contact Refer red To Contact Diagnoses Lumbar radiculopathy Degeneration of lumbar intervertebral disc Ortiz Perez Procedures CT Lumbar Spine w/o Contrast MD Micheal [address] [place] [address] Referral ID Status Reason Start Date Expiration Date Visits V isits Requested Authorized [id number] Pending 07/14/2021 07/14/2022 1 1 Review LIANCE REPRESENTATIVE DEALER Reason for Visit Reason Comments Pain Encounter Details Date Type Department Care Team Description 07/14/2021 Office Visit [facility] Ortiz Perez ar radiculopathy (Primary Dx); Pain Management MD Micheal Degeneration of lumbar intervertebral di sd; [place] [address] [place] [address] Chronic pain syndrome; [address] [place], [place] [address] Chronic, continuous use of opioids [address] [place] [address] Social History Tobacco Use Types Packs/Day Years Used Date Smoking Tobacco: Former Cigarettes Smokeless Tobacco: Never Alcohol Use Standard Drinks/Week Comments Never 0 (1 standard drink = 0.6 oz pure alcoho l) Sex Assigned at Date Recorded Not on file COVID-19 Exposure Response Date Recorded In the last month, have you been in contact with No / Unsure 07/14/2021 9:31 AM COMPLIANCE REPRESENTATIVE DEALER someone who was confirmed or suspected to have Coronavirus / COVID-19? documented as of this encounter Last Filed Vital Signs Vital Sign Reading Time Taken Comments Blood Pressure 144/72 07/14/2021 9:43 AM COMPLIANCE REPRESENTATIVE DEALER Pulse 56 07/14/2021 9:43 AM COMPLIANCE REPRESENTATIVE DEALER Temperature - - Respiratory Rate - - Oxygen Saturation 98% 07/14/2021 9:43 AM COMPLIANCE REPRESENTATIVE DEALER Inhaled Oxygen Concentration - - Weight - [...] The referral will be sent to the [facility] and they should call you to schedule. 4. Follow up in 6 weeks. Take care, Ortiz Perez, [facility] Clinic Number: [phone] ??? Call with any questions about your care and for scheduling assistance. ??? Calls are returned Monday through Monday between 8 AM and 4:30 PM. We usually get back to you within 2 business days depending on the issue/request. If we are prescribing your medications: ?? For opioid medication refills, call the clinic or send a [employer] message 7 days in advance. Please include: ?? Name of requested medication ?? Name of the pharmacy. ?? For non-opioid medications, call your pharmacy directly to request a refill. Please allow 3-4 days to be processed. ?? Per [place] State Law: ?? All controlled substance prescriptions [...] may lead to dismissal from the clinic. LIANCE REPRESENTATIVE DEALER documented in this encounter Progress Notes Ortiz Perez MD - 07/14/2021 10:00 AM CST [facility] Consultation Date of visit: 07/14/2021 Assessment: Tremaine Plunkett is a 65 year old with past medical history including: HTN, PVCs, diastolic heart failure, Obstructive and Central sleep apnea, Obesity who presents for transfer of care from [facility]. They are being seen for the [...] gradually worsening symptoms. 5. Medication Management: 1. Sweetser 10-325, 5 tabs daily, #150/month. They will call and let us know how many tablets they havefrom their prior prescription. 2. Urine toxicology screen - 05/20/21 3. Opioid agreement - at follow-up 6. Further procedures recommended: none at this time. 7. Referrals: EMG referral placed to evaluate their radiculopathy. 8. Follow up: 6 weeks. DO Kary Campuzano [facility] Pain Management Reason for consultation: Tremaine Plunkett is a 65 year old male who is seen in consultation today at the request of his primary care physician, Zhang Masterson . Consultation and Evaluation for: chronic back pain Review of [place] Prescription Monitoring Program (MARBLE INSTALLER SUPERVISOR): Today I have also reviewed the patient's history of controlled substance use, as provided by [place] licensed pharmacies and prescriber dispensers. Review of Pain Questionnaire: Please see the [facility] Pain [facility] health questionnaire, which the patient completed and reviewed with me in detail. Review of Electronic Chart: Today I have also reviewed available medical information in the patient's medical record at [facility] ([facility]), including relevant provider notes, laboratory work, and imaging. Tremaine Plunkett has been seen at a pain clinic in the past. [facility] by Marivel [facility]. Chief Complaint: Chief Complaint Patient presents with ??? Pain Pain history: Tremaine Plunkett is a 65 year old male who presents for initial evaluation of chief pain complaint ofchroni cpain. In 2001 they had a work related injury. 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 When he was doing this he heard a pop in his low back and he started having pain radiating into both legs, it is worse on the right side. They were managed non-operatively. They were seen at [facility] and had RFA and epidural injections without [...] rash and shortness of breath while in [place] over 2 years ago. He has seen [...] exercise bike for 10-15 minutes daily. Unfortunately Tremaine's back pain and pain radiating into the [...] Current pain medications: -Methocarbamol 500mg BID prn -Sweetser 10-325mg -Tylenol 1-2 tabs daily as needed [...] GRANULOCYTES(METAS,MYELOS,PROS) <0.3 thou/cu mm 0.[address] [facility] Past Medical History: Past Medical History: Diagnosis Date ??? Arthritis ??? Lumbar radiculopathy Created by Conversion ??? Opioid type dependence, continuous (H) Created by Conversion Past Surgical History: Past Surgical History: Procedure Laterality Date ??? ABDOMEN SURGERY ??? BACK SURGERY ??? CHOLECYSTECTOMY ??? IR LUMBAR DISCOGRAM 08/28/2006 ??? IR THORACIC EPIDURAL STEROID INJECTION 01/27/2012 ??? JOINT REPLACEMENT ??? MA IMPLANT SPINAL NEUROSTIM/DIVISION TRAFFIC SUPERINTENDENT Right 11/29/2018 Procedure: RIGHT FLANK INCISION INSERTION SPINAL CORD STIMULATOR, INSERTION OF STIMULATOR ELECTRODES X2; Surgeon: Hugo Loyola MD; Location: [facility]; Service: Pain ??? MA NERVOUS SYSTEM SURGERY UNLISTED Description: Nerve Ablation Paravertebral Facet Joint Lumbar; Recorded: 05/06/2011; ??? MA NERVOUS SYSTEM SURGERY UNLISTED Description: Nerve Ablation [...] History: Home situation: lives in [facility] Tobacco use: former smoker Drug use: denies [...] professionals Time spent documenting clinical information [facility] LIANCE REPRESENTATIVE DEALER documented in this encounter Nursing Notes Bria Mena MA - 07/14/2021 10:00 AM CST PEG Score 05/19/2021 07/14/2021 PEG Total Score 8.33 4 HEATHER Son [facility] LIANCE REPRESENTATIVE DEALER Bria Mena MA - 07/14/2021 10:00 AM CST Faxed EMG to [facility] in [place], . Right Fax confirmed. HEATHER Son [facility] LIANCE REPRESENTATIVE DEALER documented in this encounter Plan of Treatment Upcoming Encounters Date Type Specialty Care Team Description 04/26/2022 Virtual Visit Pain & [place] [address] [place], [place] [address] (Wo rk) Scheduled Orders [...] continuous documented in this encounter Care Teams Welder Pipe Making Relationship Specialty Start Date End Date Aleja Zhang PCP - General Family Medicine 05/19/[address] [place] [address] Tony Gray MD Referring Physician Orthopedics 10/01/14 Conner Harper MD MD Orthopedics 10/01/[address] [place] [address] Marivel Cavazos, Assigned Surgical Provider [address] [place] [address] documented as of this encounter
--- OUTSIDE RECORDS SUMMARY | 2022-04-22 09:42 | XMS_ITS | Encounter Summary ---
:1955 Author Organization [place] Address [address] [facility] [place] [address] Care Team Providers Name Role Phone Tony [...] Pain & [place] [address] [facility] [place] [place] [address] (Wo rk) documented as of this encounter Visit Diagnoses Not on filedocumented in this encounter Care Teams Blood Coordinator Relationship Specialty Start Date End Date Zhang Masterson PCP - General Family Medicine 05/19/[address] [place] [address] Tony Gray MD Referring Physician Orthopedics 10/01/14 Conner Harper MD MD Orthopedics 10/01/[address] [place], [place] [address] Marivel Cavazos, Assigned Surgical Provider [address] [place] [address] documented as of this encounter
--- OUTSIDE RECORDS SUMMARY | 2022-04-22 09:42 | XMS_ITS | Encounter Summary ---
:1955 Author Organization [place] Address [address] [facility] [address] Care Team Providers Name Role Phone Tony Gray MD Unavailable Conner Harper MD Unavailable Marlee Coles MD Primary Care Provider [phone] Reason for Visit Reason Comments Back Pain Encounter Details Date Type Department Care Team Description 12/10/2020 Hospital Encounter [facility] Alessandro Cavazos neration of lumbar or lumbosacral intervertebral disc; Pain Center Marivel Hernadez PA-C Chronic pain syndrome; [address] [facility] [address] [facility] Lumbar radiculopathy; [place] [address] [place], [place] Degeneration of thoracic intervertebral disc; [phone] Opioid type dependence, continuous (H) [place], [place] [phone] (Work) [phone] Social History Tobacco Use Types Packs/Day Years [...] Continuous Use Pain location and description: See CERTIFIED TECHNICIAN note Radiation of pain: Buttocks bilaterally, lower legs. Gait disturbance: None reported, denies recent falls. Denies AD. Exacerbating factors: walking, sitting, standing Alleviating factors: Pain medications, rest, ice Associated symptoms: Sleep disturbance due to pain. Numbness in bilateral hands and feet, legs. Denies weakness, bowel or bladder incontinence, fever/chills, unexplained weight loss. Functional Symptoms: See CERTIFIED TECHNICIAN note Adverse effects of medications: Denies constipation, drowsiness, dizziness, nausea/abdominal symptoms, itching, headache. Current treatment efficacy: Poor. Not having pain control with Belbuca yet. Current treatment compliance: Good; denies self-escalation of doses and no early refill requests. UDT appropriate. Keeps appointment follow-ups with pain center. Purchased stationary bike uses 15-30 every morning - better tolerated than walking. Since last visit, he continues with valver for body rash. Biopsy results he states [...] chronicity, unspecified heart failure type (HC) - DC ECG ROUTINE ECG W/LEAST 12 LDS W/I&R [...] not followed through yet. He went to [facility] and found #12 tabs Vicodin 10/325 mg [...] shoulder injury planning to do MRI at [facility]. He is worried this may require [...] station: Ambulates independently with normal gait. Opioid [place] Precautions: UDT- 06/10/20, results as expected Consent - 04/01/20 Agreement- 04/01/20 Pharmacy- as documented BRICK [employer]ER- reviewed 12/10/2020 as expected Count- n/a Psychological evaluation n/a MME- buprenorphine Pharmacogenetic testing n/a Imaging: EXAM: XR THORACIC SPINE 2 VWS LOCATION: [facility] DATE/TIME: 01/30/2019 9:09 AM ?? INDICATION: [...] Marivel in office Marivel Cavazos PA-C [facility] [address] [facility] [place] [address] 32 minutes spent on the date of [...] Pain & [place] [address] [facility] [address] [place], [place] [address] (Wo rk) documented as of this encounter Visit Diagnoses Diagnosis Degeneration of lumbar or lumbosacral in tervertebral disc Chronic pain syndrome Lumbar radiculopathy Thoracic or lumbosacral neuritis or radi culitis, unspecified Degeneration of thoracic intervertebral disc Degeneration of thoracic or thoracolumba r intervertebral disc Opioid type dependence, continuous (H) Opioid type dependence, continuous documented in this encounter Care Teams Huc Relationship Specialty Start Date End Date Marlee Coles MD PCP - General 02/10/15 05/18/21 [place] [address] [place] [address] Tony Gray MD Referring Physician Orthopedics 10/01/14 Conner Harper MD MD Orthopedics 10/01/[address] [place] [address] documented as of this encounter
--- OUTSIDE RECORDS SUMMARY | 2022-04-22 09:42 | XMS_ITS | Encounter Summary ---
:1955 Author Organization [place] Address [address] [facility] [place] [address] Care Team Providers Name Role Phone Tony Gray MD Unavailable Conner Harper MD Unavailable Marlee Coles MD Primary Care Provider [phone] Encounter Details Date Type Department Care Team Description 11/14/2020 [facility] - [facility] Provider, Histor ical Social History Tobacco Use Types Packs/Day Years Used Date Smoking Tobacco: Never Assessed Sex Assigned at Date Recorded Not on file documented as of this encounter Plan of Treatment Upcoming Encounters Date Type Specialty Care Team Description 04/26/2022 Virtual Visit Pain & [place] [address] [place], [place] [address] (Wo rk) documented as of this encounter Procedures Procedure Name Priority Date/Time Associated Diagnosis Comme nts XR FLUORO TIME 0/1 Routine 01/06/2006 12:00 AM Re sults for this HOUR CDT procedure are i n the results section. documented in this encounter Results XR Fluoro Time 0/1 Hour (01/06/2006 12:00 AM CDT) Anatomical Region Laterality Modality Abdomen/Pelvis Other Specimen (Source) Anatomical Location Collection Method / Collectio n Time Received Time / Laterality Volume Narrative 01/06/2006 12:00 AM CDT See Historical Hospital Medical Record f or documentation Procedure Note Provider, Historical - 11/14/2020Formatt ing of this note might be different from the original. See Historical Hospital Medical Record f or documentation Historical Provider IMG DIAGNOSTIC IMAGING ORDER ABBI documented in this encounter Visit Diagnoses Not on filedocumented in this encounter Care Teams Veneer Puller Relationship Specialty Start Date End Date Marlee Coles MD PCP - General 02/10/15 05/18/21 [place] [address] [address] [address] Tony Gray MD Referring Physician Orthopedics 10/01/14 Conner Harper MD MD Orthopedics 10/01/14 [address] [place], [place] [address] documented as of this encounter
--- OUTSIDE RECORDS SUMMARY | 2022-04-22 09:42 | XMS_ITS | Encounter Summary ---
:1955 Author Organization [place] Address [address] [facility] [place] [address] Care Team Providers Name Role Phone Tony Gray MD Unavailable Conner Harper MD Unavailable Marlee Coles MD Primary Care Provider [phone] Encounter Details Date Type Department Care Team Description 11/14/2020 Records - [facility] CON[facility] Provider, Histor ical Social History Tobacco Use Types Packs/Day Years Used Date Smoking Tobacco: Never Assessed Sex Assigned at Date Recorded Not on file documented as of this encounter Plan of Treatment Upcoming Encounters Date Type Specialty Care Team Description 04/26/2022 Virtual Visit Pain & [place] [address] [place], [place] [address] (Wo rk) documented as of this encounter Procedures Procedure Name Priority Date/Time Associated Diagnosis Comme nts XR FLUORO TIME 0/1 Routine 08/15/2005 12:00 AM Re sults for this HOUR SERVICE TECH/WELDER procedure are i n the results section. documented in this encounter Results XR Fluoro Time 0/1 Hour (08/15/2005 12:00 AM SERVICE TECH/WELDER) Anatomical Region Laterality Modality Abdomen/Pelvis Other Specimen (Source) Anatomical Location Collection Method / Collectio n Time Received Time / Laterality Volume Narrative 08/15/2005 12:00 AM SERVICE TECH/WELDER See Historical Hospital Medical Record f or documentation Procedure Note Provider, Historical - 11/14/2020Formatt ing of this note might be different from the original. See Historical Hospital Medical Record f or documentation Historical Provider IMG DIAGNOSTIC IMAGING ORDER ABBI documented in this encounter Visit Diagnoses Not on filedocumented in this encounter Care Teams Shipping And Receiving Assistant Relationship Specialty Start Date End Date Marlee Coles MD PCP - General 02/10/15 05/18/21 [place] [address] [address] [facility] [address] [place] [address] Tony Gray MD Referring Physician Orthopedics 10/01/14 Conner Harper MD MD Orthopedics 10/01/[address] [place], [place] [address] documented as of this encounter
--- OUTSIDE RECORDS SUMMARY | 2022-04-22 09:42 | XMS_ITS | Encounter Summary ---
:1955 Author Organization [place] Address [address] [place] [address] Care Team Providers Name Role Phone Tony Gray MD Unavailable Conner Harper MD Unavailable Marivel Cavazos PA-C Unavailable Zhang Masterson Primary Care Provider Reason for Visit Reason Onset Date Comments Patient/info Update 07/14/2021 Encounter Details Date Type Department Care Team Description 07/14/2021 Telephone [facility] Ortiz Gill Patient/info [place] [address] [place] [address] [place] [address] [phone] Social History Tobacco Use Types Packs/Day Years Used Date Smoking Tobacco: Former Cigarettes Smokeless Tobacco: Never Alcohol Use Standard Drinks/Week Comments Never 0 (1 standard drink = 0.6 oz pure alcoho l) Sex Assigned at Date Recorded Not on file COVID-19 Exposure Response Date Recorded In the last month, have you been in contact with No / Unsure 07/14/2021 9:31 AM TANK RIVETER someone who was confirmed or suspected to have Coronavirus / COVID-19? documented as of this encounter Miscellaneous Notes Telephone Encounter - Gi Irwin RN - 07/15/2021 11:19 AM TANK RIVETER Will call and update pt on fill and start dates. Refill procedure reviewed. Appt note for CSA to be completed at 6 week follow-up made. Gi Andino RN Cane Flume Chute Operator [facility] RIVETER Telephone Encounter - Ortiz Perez MD - 07/15/2021 10:02 AM TANK RIVETER At our appointment yesterday we agreed Tremaine would take 5 tabs daily max. The 32 tabs should last 6days, refill should be due around jul 20. I went ahead and ordered this refill to the [facility] pharmacy asthe patient requested. Ortiz Perez DO [facility] RIVETER Telephone Encounter - Gi Irwin RN - 07/15/2021 8:50 AM TANK RIVETER Routing to provider to review message from pt Gi Andino RN Cane Flume Chute Operator [facility] RIVETER Telephone Encounter - Cely Toscano - 07/14/2021 2:32 PM CST Patient calling to state he has 32 tablets of HYDROcodone-acetaminophen (NORCO) 10-325 MG per tablet. Cely Bustos Interpersonal Communications Professor [facility] RIVETER documented in this encounter Plan of Treatment Upcoming Encounters Date Type Specialty Care Team Description 04/26/2022 Virtual Visit Pain & [place] [address] [place], [place] [address] (Wo rk) documented as of this encounter Visit Diagnoses Diagnosis Chronic pain syndrome documented in this encounter Care Teams Cushion Worker Relationship Specialty Start Date End Date Zhang Masterson PCP - General Family Medicine 05/19/[address] [place] [address] Tony Gray MD Referring Physician Orthopedics 10/01/14 Conner Harper MD MD Orthopedics 10/01/[address] [place] [address] Marivel Cavazos, Assigned Surgical Provider [address] [place] [address] documented as of this encounter
--- OUTSIDE RECORDS SUMMARY | 2022-04-22 09:42 | XMS_ITS | Encounter Summary ---
:1955 Author Organization [place] Address [address] [facility] [place] [address] Care Team Providers Name Role Phone Tony Gray MD Unavailable Conner Harper MD Unavailable Marivel Cavazos PA-C Unavailable Zhang Masterson Primary Care Provider Reason for Visit Reason Onset Date Comments Forms 09/14/2021 Encounter Details Date Type Department Care Team Description 09/14/2021 [facility] Ortiz Gill [place] [address] [place] [address] [place] [address] [phone] Social History Tobacco Use Types Packs/Day Years [...] and scanning. Closing encounter. Gi Andino RN Scrap Materials Buyer [facility] documented in this encounter Plan of Treatment Upcoming Encounters Date Type Specialty Care Team Description 04/26/2022 Virtual Visit Pain & [place] [address] [place], [place] [address] (Wo rk) documented as of this encounter Visit Diagnoses Not on filedocumented in this encounter Care Teams Well Testing Operator Relationship Specialty Start Date End Date Zhang Masterson PCP - General Family Medicine 05/19/[address] [place] [address] Tony Gray MD Referring Physician Orthopedics 10/01/14 Conner Harper MD MD Orthopedics 10/01/[address] [place] [address] Marivel Cavazos, Assigned Surgical Provider [address] [place], [place] [address] documented as of this encounter
--- OUTSIDE RECORDS SUMMARY | 2022-04-22 09:42 | XMS_ITS | Encounter Summary ---
:1955 Author Organization [place] Address [address] 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 documented as of this encounter Last Filed Vital Signs Vital Sign Reading Time Taken Comments Blood Pressure 127/56 08/25/2021 9:47 AM PROGRAM ASSOCIATE Pulse 69 08/25/2021 9:47 AM PROGRAM ASSOCIATE Temperature - - Respiratory Rate - - Oxygen Saturation 97% 08/25/2021 9:47 AM PROGRAM ASSOCIATE Inhaled Oxygen Concentration - - Weight - - Height - - Body Mass Index - - documented in this encounter Patient Instructions Patient InstructionsBeatriz Mo - 08/25/2021 10:00 AM CST 1. You can continue [place] 10-325mg two tabs in the morning and [...] will call you and you can call [phone] to get this scheduled. 4. I'll call you with the CT results and we'll set you up for the lumbar medial branch blocks. Take care, Ortiz Perez DO [facility] Number: [phone] ??? Call with any questions about your care and for scheduling assistance. ??? Calls are returned Monday through Monday between 8 AM and 4:30 PM. We usually get back to you within 2 business days depending on the issue/request. If we are prescribing your medications: ?? For opioid medication refills, call the clinic or send a retickrhart message 7 days in advance. Please include: ?? Name of requested medication ?? Name of the pharmacy. ?? For non-opioid medications, call your pharmacy directly to request a refill. Please allow 3-4 days to be processed. ?? Per [place] State Law: ?? All controlled substance prescriptions [...] may lead to dismissal from the clinic. RAM ASSOCIATE documented in this encounter Progress Notes Ortiz Perez MD - 08/25/2021 10:00 AM CST [facility] Date of visit: 08/25/2021 Assessment: Tremaine Plunkett is a 65 year old with past medical history including: HTN, PVCs, diastolic heart failure, Obstructive and Central sleep apnea, Obesity who presents for transfer of care from [facility]. They are being seen for the [...] prior to scheduling. 5. Medication Management: 1. [place] 10-325, 4-5 tabs daily, #150/month. Will gradually [...] ?? Camilo Welch MD Pain Medicine Fellow [facility] Ortiz Perez DO [facility] Chief complaint: Chief Complaint Patient presents with ??? Pain Interval history: Tremaine Plunkett is a 65 year old male last seen by me on 07/14/21. Since his last visit, Tremaine Plunkett reports: - Has not been able to complete EMG as of yet due to workman's comp - they wouldn't go through the nuclear security officer so cannot schedule for now. - [place] is currently being taken as 2tabs in [...] Current pain medications: -Methocarbamol 500mg BID prn -[place] 10-325mg 4-5 tabs daily - 40-50 MME [...] spine surgeries. Had SCS implant 10/23/18 - [facility] - he has had trouble getting reps [...] professionals Time spent documenting clinical information in [facility] DO Lilinaa Ayala Pain Management 08/25/2021 RAM ASSOCIATE documented in this encounter Nursing Notes Beatriz Mo - 08/25/2021 10:00 AM CST PEG Score 05/19/2021 07/14/2021 08/25/2021 PEG Total Score 8.33 4 8 RAM ASSOCIATE documented in this encounter Plan of Treatment Upcoming Encounters Date Type Specialty Care Team Description 04/26/2022 Virtual Visit Pain & [place] [address] [place], [place] [address] (Wo rk) documented as [...] device. ?? REJI FINCH MD SYSTEM ID: ??[id number] Narrative 10/21/2021 3:[address] LUMBAR [...] L5-S1. Mild foraminal stenoses at multiple levels. [id number] bilateral foraminal braeden noses at L2-L3. Moderate [...] the original. CT LUMBAR SPINE WITHOUT CONTRAST 5/5/202 2 9:38 AM HISTORY: Low back pain, greater [...] L5-S1. Mild foraminal stenoses at multiple levels. Mvyq-[id number] bilateral foraminal braeden noses at L2-L3. Moderate [...] stimulator device. REJI FINCH MD SYSTEM ID: [id number] Ortiz Perez MD IMG CT ORDERABLES documented [...] sciatica documented in this encounter Care Teams Image Assembler Relationship Specialty Start Date End Date Zhang Masterson PCP - General Family Medicine 05/19/[address] [place] [address] [place] [address] Tony Gray MD Referring Physician Orthopedics 10/01/14 Conner Harper MD MD Orthopedics 10/01/[address] [place], [place] [address] Marivel Cavazos, Assigned Surgical Provider [address] [place] [id number] documented as of this encounter
--- OUTSIDE RECORDS SUMMARY | 2022-04-22 09:42 | XMS_ITS | Encounter Summary ---
:1955 Author Organization [place] Address [address] 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 We'll call the neurology clinic and [facility] to have you set up for the EMG and to have adjustments made to your stimulator device. I'll call once I have your lumbar CT results. Once I review this and the EMG we will have a better idea about what is causing the pain radiating into your legs. Take care, Ortiz Perez [facility] Number: [phone] Call with any questions about your care and for scheduling assistance. Calls are returned Monday through Monday between 8 AM and 4:30 PM. We usually get back to you within2 business days depending on the issue/request. If we are prescribing your medications: For opioid medication refills, call the clinic or send a [email or web address] [email or web address] message 7 days in advance. Please include: Name of requested medication Name of the pharmacy. For non-opioid medications, call your pharmacy directly to request a refill. Please allow 3-4 days to be processed. Per [place] State Law: All controlled substance prescriptions must [...] Perez MD - 10/15/2021 10:00 AM CDT [facility] Date of visit: 10/15/21 Assessment: Tremaine Plunkett is a 66 year old with past medical history including: HTN, PVCs, diastolic heart failure, Obstructive and Central sleep apnea, Obesity who presents for transfer of care from [facility]. They are being seen for the [...] Lumbar CT scheduled. 5. Medication Management: 1. [place] 10-325, 4-5 tabs daily, #150/month. Will increase [...] their radiculopathy (acute vs chronic), will have [facility] neurolog[facility] call back to schedule. 8. Follow up: will call with CT results. ?? Ortiz Perez [facility] Chief complaint: Chief Complaint Patient [...] Current pain medications: -Methocarbamol 500mg BID prn -[place] 10-325mg 4-5 tabs daily - 40-50 MME [...] professionals Time spent documenting clinical information in [facility] DO Liliana Ayala Pain Management documented in this encounter Plan of Treatment Upcoming Encounters Date Type Specialty Care Team Description 04/26/2022 Virtual Visit Pain & [place] [address] [place], [place] [address] (Wo rk) documented as [...] syndrome documented in this encounter Care Teams Garment Fitter Relationship Specialty Start Date End Date Zhang Masterson PCP - General Family Medicine 05/19/[address] [place] [address] Tony Gray MD Referring Physician Orthopedics 10/01/14 Conner Harper MD MD Orthopedics 10/01/14 [address] [place], [place] [address] Marivel Cavazos, Assigned Surgical Provider [address] [place] [place] [id number] documented as of this encounter
--- OUTSIDE RECORDS SUMMARY | 2022-04-22 09:42 | XMS_ITS | Encounter Summary ---
:1955 Author Organization [place] Address [address] 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 [phone] Patient would like to receive their AVS [...] intervertebral disc Pain location and description: See CHARTER PILOT note Radiation of pain: Buttocks bilaterally, lower legs. Gait disturbance: None reported, denies recent falls. Denies AD. Exacerbating factors: walking, sitting, standing Alleviating factors: Pain medications, rest, ice Associated symptoms: Sleep disturbance due to pain. Numbness in bilateral hands and feet, legs. Denies weakness, bowel or bladder incontinence, fever/chills, unexplained weight loss. Functional Symptoms: See CHARTER PILOT note Adverse effects of medications: Denies constipation, [...] for programming adjustments. He states currently in [place] until September. He states pain in left knee that is causing more pain, can hardly walk. He had injection prior to leaving. Will plan to see orthopedics in [place] to repeat while he is still there. [...] not do this until he returns from [place] in the spring. Sleep study - has [...] loss, psychoses, suicidal ideation, substance use/abuse. Opioid [place] Precautions: UDT- Reviewed from 06/10/20, results as expected Consent - 04/01/20 Agreement- 04/01/20 Pharmacy- as documented ACCOUNTING INTERN- reviewed 08/11/2020 as expected Count- n/a Psychological evaluation n/a MME- up to 60 Pharmacogenetic testing n/a Imaging: EXAM: XR THORACIC SPINE 2 VWS LOCATION: [facility] DATE/TIME: 01/30/2019 9:09 AM ?? INDICATION: [...] tired. Plan to order open MRI at [facility] once you return to [place]. Continue use of SCS Follow-up in 8 weeks with Marivel in office Marivel Cavazos PA-C [facility] [address] [facility] [place] [address] Call Time: 18 minutes Start - 1112 AM Stop - 1130 AM GER MERCHANDISE documented in this encounter Miscellaneous Notes Patient Instructions - HE - Marivel Cavazos PA-C - 08/11/2020 10:40 AM MANAGER MERCHANDISE Continue Vicodin 10/325 mg 2 tabs three [...] tired. Plan to order open MRI at [facility] once you return to [place]. Continue use of SCS Follow-up in 8 weeks with Marivel in office GER MERCHANDISE Addendum Note - Historical Provider - 08/11/2020 10:40 AM CST Addendum Note by Analisa Chi at 08/11/2020 10:40 AM Author: Analisa Chi Service: -- Author Type: -- Filed: 08/13/2020 8:21 AM Date of Service: 08/11/2020 10:40 AM Status: Signed Resaw Tailer: Analisa Chi Encounter addended by: Analisa Chi on: 08/13/2020 8:21 AM Actions taken: Charge Capture section accepted GER MERCHANDISE documented in this encounter Plan of Treatment Upcoming Encounters Date Type Specialty Care Team Description 04/26/2022 Virtual Visit Pain & [place] [address] [place], [place] [address] (Wo rk) documented as of this encounter Visit Diagnoses Diagnosis Chronic, continuous use of opioids Opioid type dependence, continuous Chronic pain syndrome 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
--- OUTSIDE RECORDS SUMMARY | 2022-04-22 09:42 | XMS_ITS | Encounter Summary ---
:1955 Author Organization [place] Address [address] [place] [address] Care Team Providers Name Role Phone Tony Gray MD Unavailable Conner Harper MD Unavailable Marivel Cavazos PA-C Unavailable Zhang Masterson Primary Care Provider Reason for Visit Reason Comments RECHECK back pain Encounter Details Date Type Department Care Team Description 05/19/2021 Office Visit [facility] Marivel Cavazos Chron ic pain syndrome (Primary Dx); Pain Center MATT Hernadez Chronic, continuous use of opioids; [address] Degeneration of thoracic intervertebral disc; [place] [address] [place] [address] Degeneration of lumbar intervertebral di sc; [place], [place] [phone] Lumbar radicul opathy [phone] (Work) [phone] Social History Tobacco Use Types Packs/Day Years Used Date Smoking Tobacco: Former Cigarettes Smokeless Tobacco: Never Alcohol Use Standard Drinks/Week Comments Never 0 (1 standard drink = 0.6 oz pure alcoho l) Sex Assigned at Date Recorded Not on file COVID-19 Exposure Response Date Recorded In the last month, have you been in contact with No / Unsure 05/19/2021 9:52 AM GRIDCAP MACHINE OPERATOR someone who was confirmed or suspected to have Coronavirus / COVID-19? documented as of this encounter Last Filed Vital Signs Vital Sign Reading Time Taken Comments Blood Pressure 133/70 05/19/2021 10:12 AM GRIDCAP MACHINE OPERATOR Pulse 79 05/19/2021 10:12 AM GRIDCAP MACHINE OPERATOR Temperature - - Respiratory Rate - - [...] SCS and recommendations with Nevro Continue with splitting machine operator helper and agent ticketing gate Diagnostics: UDT/Blood collected today results are pending. [...] to age, race, gender, socioeconomic status or presybeterian affiliation. Test results will be available through Nivela approximately 1 week from collection date. Opioid agreement signed today and copy was offered. Discussed bringing these copies and/or your mostrecent After Visit Summary (AVS) from our appointment to the pharmacy when you are refilling controlled medications to assist with any additional information the pharmacist may require. Follow-up in 8 weeks with pain provider, Yvette tavera preferred. Scheduling to contact patient. [facility] Number: \[phone] ??? Call with any questions about your care and for scheduling assistance. ??? Calls are returned Monday through Monday between 8 AM and 4:30 PM. We usually get back to you within 2 business days depending on the issue/request. If we are prescribing your medications: ?? For opioid medication refills, call the clinic or send a Moviep[employer] message 7 days in advance. Please include: ?? Name of requested medication ?? Name of the pharmacy. ?? For non-opioid medications, call your pharmacy directly to request a refill. Please allow 3-4 days to be processed. ?? Per [place] State Law: ?? All controlled substance prescriptions [...] may lead to dismissal from the clinic. CAP MACHINE OPERATOR documented in this encounter Progress Notes Nito [...] general activity? 10 PEG Total Score 8.33 CAP MACHINE OPERATOR Marivel Cavazos PA-C - 05/19/2021 10:00 AM [...] Continuous Use Pain location and description: See CHRISTMAS BELL RINGER note. Moderate Pain (5) Radiation of pain: Buttocks bilaterally, lower legs. Gait disturbance: None reported, denies recent falls. Denies AD. Exacerbating factors: walking, sitting, standing Alleviating factors: Pain medications, rest, ice Associated symptoms: Sleep disturbance due to pain. Numbness in bilateral hands and feet, legs. Denies weakness, bowel or bladder incontinence, fever/chills, unexplained weight loss. Functional Symptoms: See CHRISTMAS BELL RINGER note Adverse effects of medications: Denies constipation, drowsiness, dizziness, nausea/abdominal symptoms, itching, headache. Current treatment efficacy: Good, feels back pain is well controlled. Current treatment compliance: Good; denies self-escalation of doses and no early refill requests. UDT appropriate. Keeps appointment follow-ups with pain center. Purchased stationary bike uses 15-30 every morning - better tolerated than walking. Since last visit, has seen splitting machine operator helper for diastolic heart failure - high BP and low pulse rate. Hestates medication changes have occurred and he is doing a little better but frustrated he gets differing opinions and now will see EP for possible ablation. He did see Dr. Nancy Lockett on 04/28/21 with summary of care reviewed: 02/24-02/26/21 [facility]: CHF exacerbation - diuresed extensively (lost [...] intermittently which she states has seen a crib pad maker with no concrete diagnosis. 04/01/21, I discussed [...] of 3 consistently. Following Orthopedic group in [facility] for left shoulder rotator cuff tear, had surgery. He states surgery went ok, states he did have infection and had to treat this surgically. Denies current oral antibiotics. He was prescribed oxycodone 5 mg postop #30 tabs. Attending physical therapy twice a weekfor rehab. Unsure if he is wintering in [place] this year due to multiple doctor appointments. [...] station: Ambulates independently with normal gait. Opioid [place] Precautions: UDT- Collected 05/19/2021, results pending Agreement- 05/19/2021 Pharmacy- as documented SCHOOL PSYCHOLOGIST- reviewed 05/19/2021 expected Count- n/a Psychological evaluation n/a MME- 40 - 60 Pharmacogenetic testing n/a Imaging: EXAM: XR THORACIC SPINE 2 VWS LOCATION: [facility] DATE/TIME: 01/30/2019 9:09 AM ?? INDICATION: [...] with it as he [place] in [place]. Pr eviously failed neuropathic medications including Gabapentin, lyrica, duloxetine, TCAs, and lamictal. He cannot take NSAIDS any longer due to CV risk; advise APAP and review max daily dosing. Discuss this provider is leaving the pain center as of 06/16/21 and to continue care with another provider, patient prefers the [place] location due to commute. He states he [...] SCS and recommendations with Nevro Continue with splitting machine operator helper and agent ticketing gate Diagnostics: UDT/Blood collected today results are pending. [...] to age, race, gender, socioeconomic status or presybeterian affiliation. Test results will be available through Nivela approximately 1 week from collection date. Opioid agreement signed today and copy was offered. Discussed bringing these copies and/or your mostrecent After Visit Summary (AVS) from our appointment to the pharmacy when you are refilling controlled medications to assist with any additional information the pharmacist may require. Follow-up in 8 weeks with pain provider, [place] location preferred. Scheduling to contact patient. Marivel Cavazos PA-C [facility] [address] [facility] [place] [address] 40 minutes spent on the date of the encounter doing chart review, history and exam, documentation,and further activities. CAP MACHINE OPERATOR Nito Combs - 05/19/2021 10:00 AM CST UDS - 05/2020 CSA done 04/01/2020 hydrocodone at 0800 this am CAP MACHINE OPERATOR documented in this encounter Miscellaneous Notes Addendum Note - Nito Combs - 05/19/2021 10:00 AM GRIDCAP MACHINE OPERATOR Addended by: NITO COMBS on: 05/19/2021 01:03 PM Modules accepted: Orders CAP MACHINE OPERATOR documented in this encounter Plan of Treatment Upcoming Encounters Date Type Specialty Care Team Description 04/26/2022 Virtual Visit Pain & [place] [address] [place], [place] [address] (Wo rk) documented as of this encounter Procedures Procedure Name Priority Date/Time Associated Comments Diagnosis URINE CREATININE FOR Routine 05/20/2021 9:53 AM Chronic pain R esults for this DRUG SCREEN PANEL GRIDCAP MACHINE OPERATOR syndrome procedure are in the results section. URINE CREATININE FOR Routine 05/20/2021 9:53 AM Chronic pain R esults for this DRUG SCREEN PANEL GRIDCAP MACHINE OPERATOR syndrome procedure are in the results section. URINE DRUG Routine 05/20/2021 9:53 AM Chronic pain Results f or this CONFIRMATION PANEL GRIDCAP MACHINE OPERATOR syndrome procedure are in the results section. DRUG CONFIRMATION Routine 05/20/2021 9:53 AM Chronic pain Resu lts for this PANEL URINE WITH GRIDCAP MACHINE OPERATOR syndrome procedure a re in CREAT the results section. THC CONFIRMATION Routine 05/20/2021 9:53 AM Chronic pain Resul ts for this QUANTITATIVE URINE GRIDCAP MACHINE OPERATOR syndrome procedure are in the results section. ETHYL GLUCURONIDE Routine 05/20/2021 9:53 AM Chronic pain Resu lts for this URINE (DO NOT ORDER. GRIDCAP MACHINE OPERATOR syndrome procedu re are in ORDER [id number]) the results section. ETHANOL URINE Routine 05/20/2021 9:53 AM Chronic pain Results for this GRIDCAP MACHINE OPERATOR syndrome procedure are i n the results section. CANNABINOIDS Routine 05/20/2021 9:53 AM Chronic pain Results f or this QUALITATIVE URINE GRIDCAP MACHINE OPERATOR syndrome procedure are in the results section. BARBITURATES Routine 05/20/2021 9:53 AM Chronic pain Results f or this QUALITATIVE URINE GRIDCAP MACHINE OPERATOR syndrome procedure are in the results section. documented in this encounter Results Urine Creatinine for Drug Screen Panel (05/20/2021 9:53 AM GRIDCAP MACHINE OPERATOR) P athologist Signature Creatinine 17 mg/dL 05/20/2021 O LABORATORY Urine for Drug 10:08 PM GRIDCAP MACHINE OPERATOR Screen Comment: The reference range has not bee n established for creatinine in random urines. The results should be integrated into the clinical context for interpretation. Specimen Anatomical Collection Method Collection Time Receive d Time (Source) Location / / Volume Laterality Urine URINE SPECIMEN / Non-blood 05/20/2021 9:53 AM 05/20 9:24 Unknown Collection / GRIDCAP MACHINE OPERATOR PM GRIDCAP MACHINE OPERATOR Unknown Marivel Cavazos PA-C LAB - URINE ORDERABLES Performing Organization Address [facility] Phon e Number [facility] [place] [address] [place] [address], [facility] [phone] [place] [address] Urine Creatinine for Drug Screen Panel (05/20/2021 9:53 AM GRIDCAP MACHINE OPERATOR) P athologist Signature Creatinine 17 mg/dL 05/20/2021 [facility] Urine for Drug 10:08 PM GRIDCAP MACHINE OPERATOR Screen Comment: The reference range has not bee n established for creatinine in random urines. The results should be integrated into the clinical context for interpretation. Specimen Anatomical Collection Method Collection Time Receive d Time (Source) Location / / Volume Laterality Urine URINE SPECIMEN / Non-blood 05/20/2021 9:53 AM 05/20 9:24 Unknown Collection / GRIDCAP MACHINE OPERATOR PM GRIDCAP MACHINE OPERATOR Unknown Marivel Cavazos PA-C LAB - URINE ORDERABLES Performing Organization Address City/[facility]/[place] [address] [place] [address], [facility] [phone] [place] [address] (ABNORMAL) Urine Drug Confirmation Panel (05/20/2021 9:53 AM GRIDCAP MACHINE OPERATOR) Patholo gist Method Time Signature Dihydrocodeine 210 (H) <50 ng/mL 05/26/2021 [facility] ng/mL 3:34 PM GRIDCAP MACHINE OPERATOR SPECIAL CHEM Dihydrocodeine 1,235 Absent 05/26/2021 [facility] ng/mg 3:34 PM GRIDCAP MACHINE OPERATOR SPECIAL CHEM {creat} Comment: Hydromorphone and dihydrocodein e are expected metabolites of hydrocodone. Hydromorphone and dihydrocodeine are als o available as scheduled prescription medications. Hydrocodone ng/mL 1,240 (H) <50 ng/mL 05/26/2021 3:34 PM [facility] GRIDCAP MACHINE OPERATOR CHEM Hydrocodone 7,294 Absent ng/mg 05/26/2021 3:34 PM [facility] SPECIAL {creat} GRIDCAP MACHINE OPERATOR CHEM Comment: Sources of hydrocodone include scheduled prescription medications. Hydromorphone and dihydrocodeine are exp ected metabolites of hydrocodone. Hydromorphone and dihydrocodeine are als o available as scheduled prescription medications. Hydromorphone ng/mL 160 (H) <50 ng/mL 05/26/2021 3:34 PM [facility] GRIDCAP MACHINE OPERATOR CHEM Hydromorphone 941 Absent ng/mg 05/26/2021 3:34 PM [facility] SPECIAL {creat} GRIDCAP MACHINE OPERATOR CHEM Comment: Hydromorphone may be present as [...] 9:53 AM 05/20 9:24 Unknown Collection / GRIDCAP MACHINE OPERATOR PM GRIDCAP MACHINE OPERATOR Unknown Narrative [facility] - 05/26/2021 3:34 P M GRIDCAP MACHINE OPERATOR This test was developed and its performa nce characteristics determined by the [facility], ??Special Chemistry Laboratory. It has not [...] Phon e Number SPECIAL DRUG/BGEN Special Drug/[place] [phone] [address] [facility] [address], Room [address] [facility] [place] [address], CHEMISTRY [place] [address] [facility], [address] Cannabinoids qualitative urine (05/20/2021 9:53 AM GRIDCAP MACHINE OPERATOR) [facility] Time Signature Cannabinoids Screen Screen 05/20/2021 [facility] Urine Negative Negative 10:08 PM LABORATORY GRIDCAP MACHINE OPERATOR Comment: Drug Screening Threshold THC Metabolite ? 50 ng/mL Screening results are to be used only fo r medical purposes. Unconfirmed screening results must not b e used for non- medical purposes. Creatinine Urine mg/dL 17 mg/dL 05/20/2021 10:08 PM GRIDCAP MACHINE OPERATOR O LABORATORY Comment: Urine very dilute; suggest garett llection. Specimen Anatomical Collection Method Collection Time Receive d Time (Source) Location / / Volume Laterality Urine URINE SPECIMEN / Non-blood 05/20/2021 9:53 AM 05/20 9:24 Unknown Collection / GRIDCAP MACHINE OPERATOR PM GRIDCAP MACHINE OPERATOR Unknown Marivel Cavazos PA-C LAB - URINE ORDERABLES Performing Organization Address [facility]/State/ZIP Code Phon e Number [facility] [place] [address] [place] [address], [facility] [phone] [place] [address]. Ethyl Glucuronide Urine (05/20/2021 9:53 AM GRIDCAP MACHINE OPERATOR) [facility] Signature Ethyl Not Detected ng/mg 05/25/2021 [facility] Glucuronide creat 4:07 PM GRIDCAP MACHINE OPERATOR X Urine Ethanol Negative 05/25/2021 [facility] Biomarkers 4:07 PM GRIDCAP MACHINE OPERATOR X Ethyl Sulfate Not Detected ng/mg 05/25/2021 [facility] O creat 4:07 PM GRIDCAP MACHINE OPERATOR X Level of Comment 05/25/2021 [facility] Detection: 4:07 PM GRIDCAP MACHINE OPERATOR X Comment: Testing Threshold: ??ETG, 500 ng/mL; [...] 021 9:24 OBTAINED BY CLEAN Collection / GRIDCAP MACHINE OPERATOR PM GRIDCAP MACHINE OPERATOR CATCH PROCEDURE / Unknown Unknown Narrative [facility] - 05/25/2021 4:07 PM GRIDCAP MACHINE OPERATOR Performed at: ??01 - [email or web address] [address], [place] ??[id number] [address] Printer Machine: Becky Hawkins [facility], Phone: ??[phone] Marivel Cavazos PA-C LAB - URINE ORDERABLES Performing Organization Address City/[facility]/ZIP Code Phon e Number [facility] [place] [address] [place] [address] D [facility] [place] [address], [facility] [phone] Barbiturates qualitative urine (05/20/2021 9:53 AM GRIDCAP MACHINE OPERATOR) [facility] Signature Barbiturates Screen Screen 05/21/2021 U LABORATORY Urine Negative Negative 12:23 PM GRIDCAP MACHINE OPERATOR Comment: Cutoff for a negative barbitura te is 200 ng/mL or less. Specimen Anatomical Collection Method Collection Time Receive d Time (Source) Location / / Volume Laterality Urine URINE SPECIMEN / Non-blood 05/20/2021 9:53 AM 05/20 9:24 Unknown Collection / GRIDCAP MACHINE OPERATOR PM GRIDCAP MACHINE OPERATOR Unknown Mraivel Cavazos PA-C LAB - URINE ORDERABLES Performing Organization Address City/State/ZIP Code Phon e Number [facility] LABORATORY [facility] [place] [place] [address] Lab [address] [facility] [address] Building, Room 3[address]580 Ethanol urine (05/20/2021 9:53 AM GRIDCAP MACHINE OPERATOR) Patholo gist Method Time Signature Ethanol Urine Screen Screen 05/21/2021 [facility] LAB[facility]ATORY Negative Negative 12:22 PM GRIDCAP MACHINE OPERATOR Comment: Cutoff for a negative urine eth anol is 0.05 g/dL or less. Specimen Anatomical Collection Method Collection Time Receive d Time (Source) Location / / Volume Laterality Urine URINE SPECIMEN / Non-blood 05/20/2021 9:53 AM 05/20 9:24 Unknown Collection / GRIDCAP MACHINE OPERATOR PM GRIDCAP MACHINE OPERATOR Unknown Marivel Cavazos PA-C LAB - URINE ORDERABLES Performing Organization Address City/State/ZIP Code Phon [place] [address] Lab [address] [facility] [address], Room 3[address]580 documented in [...] unspecified documented in this encounter Care Teams Saturator Tender Relationship Specialty Start Date End Date Zhang Masterson PCP - General Family Medicine 05/19/[address] [place] [address] Tony Gray MD Referring Physician Orthopedics 10/01/14 Conner Harper MD MD Orthopedics 10/01/[address] [place] [address] Marivel Cavazos, Assigned Surgical Provider [address] [place] [id number] documented as of this encounter
--- OUTSIDE RECORDS SUMMARY | 2022-04-22 09:42 | XMS_ITS | Encounter Summary ---
:1955 Author Organization [place] Address [address] [facility] [place] [address] Care Team Providers Name Role Phone Tony [...] with No / Unsure 07/14/2021 9:31 AM TRUCKMAN someone who was confirmed or suspected to have Coronavirus / COVID-19? documented as of this encounter Plan of Treatment Upcoming Encounters Date Type Specialty Care Team Description 04/26/2022 Virtual Visit Pain & [place] [address] [place], [place] [address] (Wo rk) documented as of this encounter Visit Diagnoses Not on filedocumented in this encounter Care Teams Medical Interpreter Relationship Specialty Start Date End Date Zhang Masterson PCP - General Family Medicine 05/19/[address] [place] [address] Tony Gray MD Referring Physician Orthopedics 10/01/14 Conner Harper MD MD Orthopedics 10/01/[address] [place], [place] [address] Marivel Cavazos, Assigned Surgical Provider [address] [place] [address] documented as of this encounter
--- OUTSIDE RECORDS SUMMARY | 2022-04-22 09:42 | XMS_ITS | Encounter Summary ---
:1955 Author Organization [place] Address [address] [facility] [place] [address] Care Team Providers Name Role Phone Tony [...] with No / Unsure 05/19/2021 9:52 AM CLOTH STOCK SORTER someone who was confirmed or suspected to have Coronavirus / COVID-19? documented as of this encounter Plan of Treatment Upcoming Encounters Date Type Specialty Care Team Description 04/26/2022 Virtual Visit Pain & [place] [address] [place], [place] [address] (Wo rk) documented as of this encounter Visit Diagnoses Not on filedocumented in this encounter Care Teams Delivery And Mail Sorter Relationship Specialty Start Date End Date Zhang Masterson PCP - General Family Medicine 05/19/[address] [place] [address] Tony Gray MD Referring Physician Orthopedics 10/01/14 Conner Harper MD MD Orthopedics 10/01/[address] [place], [place] [address] Marivel Cavazos, Assigned Surgical Provider [address] [place] [address] documented as of this encounter
--- OUTSIDE RECORDS SUMMARY | 2022-04-22 09:42 | XMS_ITS | Encounter Summary ---
:1955 Author Organization [place] Address [address] [facility] [place] [address] Care Team Providers Name Role Phone Tony Gray MD Unavailable Conner Harper MD Unavailable Marivel Cavazos PA-C Unavailable Zhang Masterson Primary Care Provider Encounter Details Date Type Department Care Team Description 08/25/2021 Telephone [facility] Ortiz [place] [address] [address] [facility] [address] [place] [address] [place] [address] [phone] Social History Tobacco Use Types Packs/Day Years [...] scheduled 10/21/[address] Lauren KRAFT, RN Pharmacy Intake Technician [facility] Pain Management Telephone Encounter - Lauren Mcmillan RN - 10/08/2021 12:57 PM CDT Called pt. Advised that I am unable to see if approved for Ct scan but provided imaing's number so he can be connected with whomever would handle imaging auth for . [facility]- Telephone Encounter - Tequila Charlton - 10/08/2021 10:08 AM CDT We don't have PA access for imaging. Tequila Charlton Testboard Operator [facility] Telephone Encounter - Ortiz Perez MD - 10/07/2021 12:12 PM CDT Nursing: Please inform patient their EMG was approved, please provide phone [facility] to [facility] [place] to patient so they can call to schedule. Automobile Body Repair Supervisor: Can we also check to see if their CT L-spine has been approved? DO Kary Campuzano [facility] Management Telephone Encounter - Mercedes Oneil - 10/07/2021 9:01 AM CDT On 10/07/2021, received fax from [employer] ([facility] [place], Technical Primary Care Physician II, [facility]) pertaining to prior auth. Fax stated the following Mr. Plunkett is approved to have his EMG completed. Also - in the future, if you have a specific treatment request, please fax the specific request to [phone] and we will review and respond accordingly. Placed fax in Scanning for EMR. Forwarding to medical staff as FYI. Mercedes Oneil Patient Tile Power Shear Operator [facility] Management [place] Telephone Encounter - Rose Tee - 08/30/2021 12:37 PM CDT Phoned pt, informed of message below. Per Dr Perez. Rose Tee Testboard Operator [facility] Pain Management [place] Telephone Encounter - Ortiz Perez MD - 08/30/2021 10:57 AM CDT Please call patient and have them call radiology ([phone]) to schedule their CT. The radiology team will reach out to work-comp for the prior auth. DO Kary Campuzano [facility] Management Telephone Encounter - Zoe Tang - 08/27/2021 9:27 AM CST Routing to Rose as she now handles WC Zoe Harden Testboard Operator [facility] CAMERA OPERATOR Telephone Encounter - Ortiz Perez MD - 08/26/2021 4:15 PM LINE CAMERA OPERATOR Patient has work comp and stated they need to be contacted prior to any imaging being scheduled. Will route to zoe to see if they have any advice on this. DO Kary Campuzano [facility] Management CAMERA OPERATOR Telephone Encounter - Lauren Mcmillan RN - 08/26/2021 11:57 AM CST I believe that imaging department works on authorization for imaging once orders are placed. Will route to front desk person to review for clarification. Called pt and discussed CSA. Mailed copy, waiting on return of signed copy Lauren KRAFT, RN Pharmacy Intake Technician [facility] Pain Management CAMERA OPERATOR Telephone Encounter - Ortiz Perez MD - 08/25/2021 11:13 AM LINE CAMERA OPERATOR Also routing to nursing to review CSA. Forgot to discuss this with patient today, they may need someclarification on why we're calling. DO Kary Campuzano [facility] Management CAMERA OPERATOR Telephone Encounter - Ortiz Perez MD - 08/25/2021 10:30 AM LINE CAMERA OPERATOR Please reach out to Tremaine's insurance company to get approval for Lumbar CT scan. DO Kary aCmpuzano [facility] Management CAMERA OPERATOR documented in this encounter Plan of Treatment Upcoming Encounters Date Type Specialty Care Team Description 04/26/2022 Virtual Visit Pain & [place] [address] [place], [place] [address] (Wo rk) documented as of this encounter Visit Diagnoses Not on filedocumented in this encounter Care Teams Grades 1 Thru 6 Visiting Teacher Relationship Specialty Start Date End Date Zhang Masterson PCP - General Family Medicine 05/19/[address] [place] [address] Tony Gray MD Referring Physician Orthopedics 10/01/14 Conner Harper MD MD Orthopedics 10/01/[address] [place] [address] Marivel Cavazos, Assigned Surgical Provider [address] [place] [address] documented as of this encounter
--- OUTSIDE RECORDS SUMMARY | 2022-04-22 09:42 | XMS_ITS | Encounter Summary ---
:1955 Author Organization [place] Address [address] [place] [address] Care Team Providers Name Role Phone Tony Gray MD Unavailable Conner Harper MD Unavailable Marivel Cavazos PA-C Unavailable Zhang Masterson Primary Care Provider Reason for Visit Reason Onset Date Comments Opioid Refill 09/17/2021 HYDROcodone-acetamin ophen (NORCO) 10-325 MG per tablet Refill Request 09/17/2021 hydrOXYzine (VISTARI L) 25 MG capsule Encounter Details Date Type Department Care Team Description 09/17/[address] [facility] Ortiz Perez Opijovon id Refill Pain Management MD Micheal (HYDROcodone-acetamin [address] kauffman (NORCO) 10-325 [address] [place] [address] MG per tablet); [address] [place] [address] (hydrOXYzine [phone] (VISTARIL) 25 M G capsule) Social History [...] with No / Unsure 08/25/2021 9:32 AM WHARF LABOURER someone who was confirmed or suspected to have Coronavirus / COVID-19? documented as of this encounter Miscellaneous Notes Telephone Encounter - Ortiz Perez MD - 09/19/2021 4:49 PM CDT Hydroxyzine and norco refills approved, charter boat operator reviewed. Reduction in quantity to 140 tabs noted. Thanks, Ortiz Perez DO [facility] Pain Management Telephone Encounter - Lauren Mcmillan [...] he could try to follow up with celebrity manager in CT/imaging scheduling if he is not getting any answers on where things are at with the authorization process. Peterman 10-325, #140, Refill:no Sig:. Max of 5/day. Put 6 hours between doses. OK to fill 09/20/21 and start 09/21/21 Last picked up 08/16/21 with start on 08/18/21 Due: 09/21/21 ?? Per last OV note 08/25/21: 1. Medication Management:?? 1. Peterman 10-325,??4-5??tabs daily, #150/month.??Will gradually taper as tolerated, consider #140/month with next refill. Lauren KRAFT, RN Transitional Kindergarten Teacher [facility] Pain Management Telephone Encounter - Lauren Mcmillan RN - 09/17/2021 11:24 AM CDT Called pt and LM to call back to discuss how he is taking his medication. Appears to be working on gradual taper. See 08/25/21 encounter. Discussed CSA. Received on 09/14/21, waiting on scanning. Peterman 10-325, #140, Refill:no Sig: Last picked up 08/16/21 with start on 08/18/21 Due: Per last OV note 08/25/21: 1. Medication Management:?? 1. Peterman 10-325, 4-5 tabs daily, #150/month. Will gradually taper as tolerated, consider #140/month with next refill. Lauren KRAFT, RN Transitional Kindergarten Teacher [facility] Pain Management Telephone Encounter - Jessi Santiago [...] 05/19/21 E-prescribe to [facility] [place], [place] pharmacy Will route to nursing pool for review and preparation of prescription(s). Telephone Encounter - Cely Toscano - 09/17/2021 8:55 AM CDT Reason for call: Medication If this is a refill request, has the caller requested the refill from the pharmacy already? No Will the patient be using a [facility]? [place] of the pharmacy and phone number for the current request: [facility] - [place], [place] - [address] [place] [address] Name of the medication requested: HYDROcodone-acetaminophen (NORCO) 10-325 MG per tablet hydrOXYzine (VISTARIL) 25 MG capsule Other request: none Phone number to reach patient: Cell number on file: Telephone Information: Best Time: anytime Can we leave a detailed message on this number? YES Travel screening: Not Applicable Cely Bustos Signal Tower Operator 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
--- OUTSIDE RECORDS SUMMARY | 2022-04-22 09:42 | XMS_ITS | Encounter Summary ---
:1955 Author Organization [place] Address [address] [place] [address] Care Team Providers Name Role Phone Tony Gray MD Unavailable Conner Harper MD Unavailable Marlee Coles MD Primary Care Provider [phone] Reason for Visit Reason Comments Other patient reported side effect s Encounter Details Date Type Department Care Team Description 09/09/2020 Communication - [facility] Marcela Isabel Other (patient [facility] A, RN reported side [address] effects) [place] [address] [place] [address] Social History Tobacco Use Types [...] AM CDT Ok noted. Yes please call Lyn to see if they can be present, thanks. Telephone Encounter - Dalila Joaquin - 09/25/2020 2:01 PM CDT Spoke to patient, he states he will bring the records from his recent hospitalization to his appointment on 10/07/20. Patient also states he has upcoming appointments with his primary care physician [facility]kl[facility] cardiopulmonary specialist, release of information for those records have been sent to the patient. Patient is also inquiring if a practice representative from [facility] should also be present at his upcoming [...] plan of care once he returns to [place]; goal was to have updated lumbar imaging [...] hamburger Patient went into the hospital in [place] and was treated for an allergic reaction, received steroids in the hospital and is taking benedryl currently. He reports he had fluid around his heart and difficulty breathing. Patient was hospitalized x 3 daysand advised at discharge to no longer take hydrocodone 10/325 mg. Patient will follow up with his primary provider once back in [place] on 09/19/20. Advised patient to continue as [...] Pain & [place] [address] [place], [place] [address] (Wo rk) documented as of this encounter Visit Diagnoses Not on filedocumented in this encounter Care Teams Engineering Geologist Relationship Specialty Start Date End Date Marlee Coles MD PCP - General 02/10/15 05/18/21 [place] [address] [place], [place] [address] Tony Gray MD Referring Physician Orthopedics 10/01/14 Conner Harper MD MD Orthopedics 10/01/[address] [place], [place] [address] documented as of this encounter
--- OUTSIDE RECORDS SUMMARY | 2022-04-22 09:42 | XMS_ITS | Encounter Summary ---
:1955 Author Organization [place] Address [address] [place] [address] Care Team Providers Name Role Phone Tony Gray MD Unavailable Conner Harper MD Unavailable Marivel Cavazos PA-C Unavailable Zhang Masterson Primary Care Provider Encounter Details Date Type Department Care Team Description 06/07/2021 Telephone [facility] Marivel Cavazos PA-C [address] [place] [address] [address] [place] [address] [phone] Social History Tobacco Use Types Packs/Day Years Used Date Smoking Tobacco: Former Cigarettes Smokeless Tobacco: Never Alcohol Use Standard Drinks/Week Comments Never 0 (1 standard drink = 0.6 oz pure alcoho l) Sex Assigned at Date Recorded Not on file COVID-19 Exposure Response Date Recorded In the last month, have you been in contact with No / Unsure 05/19/2021 9:52 AM LEARN TO SWIM INSTRUCTOR someone who was confirmed or suspected to have Coronavirus / COVID-19? documented as of this encounter Miscellaneous Notes Telephone Encounter - Marivel Cavazos PA-C - 06/08/2021 8:56 AM LEARN TO SWIM INSTRUCTOR Completed this morning, placed in fax bin. N TO SWIM INSTRUCTOR Telephone Encounter - Declan Goff - 06/07/2021 11:51 AM CST Pharmacy left voice message to follow up on forms faxed to the clinic. Asked provider to complete forms or call to give information. N TO SWIM INSTRUCTOR documented in this encounter Plan of Treatment Upcoming Encounters Date Type Specialty Care Team Description 04/26/2022 Virtual Visit Pain & [place] [address] [place], [place] [address] (Wo rk) documented as of this encounter Visit Diagnoses Not on filedocumented in this encounter Care Teams Economics Instructor Relationship Specialty Start Date End Date Zhang Masterson PCP - General Family Medicine 05/19/[address] [place] [address] Tony Gray MD Referring Physician Orthopedics 10/01/14 Conner Harper MD MD Orthopedics 10/01/[address] [place] [address] Marivel Cavazos, Assigned Surgical Provider [address] [place] [address] documented as of this encounter
--- OUTSIDE RECORDS SUMMARY | 2022-04-22 09:42 | XMS_ITS | Encounter Summary ---
:1955 Author Organization [place] Address [address] [facility] [place] [address] Care Team Providers Name Role Phone Tony Gray MD Unavailable Conner Harper MD Unavailable Marlee Coles MD Primary Care Provider [phone] Encounter Details Date Type Department Care Team Description 11/15/2020 Records - [facility] Provider, Histor ical Social History Tobacco Use Types Packs/Day Years Used Date Smoking Tobacco: Never Assessed Sex Assigned at Date Recorded Not on file documented as of this encounter Plan of Treatment Upcoming Encounters Date Type Specialty Care Team Description 04/26/2022 Virtual Visit Pain & [place] [address] [place], [place] [address] (Wo rk) documented [...] on filedocumented in this encounter Care Teams Grey Tender Relationship Specialty Start Date End Date Marlee Coles MD PCP - General 02/10/15 05/18/21 [place] [address] [address] [address] Tony Gray MD Referring Physician Orthopedics 10/01/14 Conner Harper MD MD Orthopedics 10/01/[address] [place], [place] [address] documented as of this encounter
--- OUTSIDE RECORDS SUMMARY | 2022-04-22 09:42 | XMS_ITS | Encounter Summary ---
:1955 Author Organization [place] Address [address] [place] [address] Care Team Providers Name Role Phone Tony Gray MD Unavailable Conner Harper MD Unavailable Marlee Coles MD Primary Care Provider [phone] Reason for Visit Reason Comments Back Pain Encounter Details Date Type Department Care Team Description 02/04/2021 Office Visit [facility] Marivel Cavazos ic pain syndrome (Primary Dx); Pain Center MATT Hernadez Chronic, continuous use of opioids; [address] [facility] [address] Degeneration of thoracic intervertebral disc; [place] [address] [place] [address] Degeneration of lumbar intervertebral di [place], [place] [phone] [address] (Work) [phone] Social History Tobacco Use Types Packs/Day Years [...] and recommendations with Nevro Return to see glaze sprayer for rash Continue with orthopedic recommendations for [...] Continuous Use Pain location and description: See VEST TAILOR note Radiation of pain: Buttocks bilaterally, lower legs. Gait disturbance: None reported, denies recent falls. Denies AD. Exacerbating factors: walking, sitting, standing Alleviating factors: Pain medications, rest, ice Associated symptoms: Sleep disturbance due to pain. Numbness in bilateral hands and feet, legs. Denies weakness, bowel or bladder incontinence, fever/chills, unexplained weight loss. Functional Symptoms: See VEST TAILOR note Adverse effects of medications: Denies constipation, drowsiness, dizziness, nausea/abdominal symptoms, itching, headache. Current treatment efficacy: Good, feels back pain is well controlled. Current treatment compliance: Good; denies self-escalation of doses and no early refill requests. UDT appropriate. Keeps appointment follow-ups with pain center. Purchased stationary bike uses 15-30 every morning - better tolerated than walking. Since last visit, he continues with glaze sprayer for body rash. Biopsy results he states [...] had spasms lately. [facility] for left shoulder rotator cuff tear, pending [...] he was given antibiotics. He didn't see glaze sprayer as it interfered with his visit. He [...] station: Ambulates independently with normal gait. Opioid Heber Precautions: UDT- 06/10/20, results as expected Agreement- 04/01/20 Pharmacy- as documented SAP SENIOR DEVELOPER- reviewed 02/04/2021 last refill was 12/10/20 28 days #168 tabs. He states he did shrimp picker refillon 02/01. Count- n/a Psychological evaluation n/a MME- 40 - 60 Pharmacogenetic testing n/a Imaging: EXAM: XR THORACIC SPINE 2 VWS LOCATION: [facility] DATE/TIME: 01/30/2019 9:09 AM ?? [...] and recommendations with Ayse Return to see glaze sprayer for rash Continue with orthopedic recommendations for shoulder surgery - expect the surgeon will manage your postoperative medications. They may call me if needed. Follow-up in 8 weeks with Marivel lagunas or office Marivel Cavazos PA-C [facility] [address] [facility] [place] [address] Latisha Bautista - 02/04/2021 11:00 AM CDT [...] Pain & [place] [address] [place], [place] [address] (Wo rk) documented as of this encounter Visit Diagnoses Diagnosis Chronic pain syndrome - Primary Chronic, continuous use of opioids Opioid type dependence, continuous Degeneration of thoracic intervertebral disc Degeneration of thoracic or thoracolumba r intervertebral disc Degeneration of lumbar intervertebral di sc Degeneration of lumbar or lumbosacral in tervertebral disc documented in this encounter Care Teams Line Prep Cook Relationship Specialty Start Date End Date Marlee Coles MD PCP - General 02/10/15 05/18/21 [place] [address] [place], [place] [address] Tony Gray MD Referring Physician Orthopedics 10/01/14 Conner Harper MD MD Orthopedics 10/01/14 [address] [facility] [address] [place], [place] [address] documented as of this encounter
--- OUTSIDE RECORDS SUMMARY | 2022-04-22 09:42 | XMS_ITS | Encounter Summary ---
:1955 Author Organization [place] Address [address] [facility] [place] [address] Care Team Providers Name Role Phone Tony Gray MD Unavailable Conner Harper MD Unavailable Marlee Coles MD Primary Care Provider [phone] Encounter Details Date Type Department Care Team [...] Pain & [place] [address] [place], [place] [address] (Wo rk) documented as of this encounter Visit Diagnoses Not on filedocumented in this encounter Care Teams Solderer Production Line Relationship Specialty Start Date End Date Marlee Coles MD PCP - General 02/10/15 05/18/21 [place] [address] [address] [place] [address] Tony Gray MD Referring Physician Orthopedics 10/01/14 Conner Harper MD MD Orthopedics 10/01/14 [address] [facility] [address] [place], [place] [address] documented as of this encounter
--- OUTSIDE RECORDS SUMMARY | 2022-04-22 09:42 | XMS_ITS | Encounter Summary ---
:1955 Author Organization [place] Address [address] [facility] [place] [address] Care Team Providers Name Role Phone Tony Gray MD Unavailable Conner Harper MD Unavailable Marlee Coles MD Primary Care Provider [phone] Encounter Details Date Type Department Care Team Description 11/14/2020 Records - [facility] Provider, Histor ical Social History Tobacco Use Types Packs/Day Years Used Date Smoking Tobacco: Never Assessed Sex Assigned at Date Recorded Not on file documented as of this encounter Plan of Treatment Upcoming Encounters Date Type Specialty Care Team Description 04/26/2022 Virtual Visit Pain & [place] [address] [place], [place] [address] (Wo rk) documented as of this encounter Procedures Procedure Name Priority Date/Time Associated Diagnosis Comme nts XR FLUORO TIME 0/1 Routine 08/01/2005 12:00 AM Re sults for this HOUR PRODUCTION CONTROLLER procedure are i n the results section. documented in this encounter Results XR Fluoro Time 0/1 Hour (08/01/2005 12:00 AM PRODUCTION CONTROLLER) Anatomical Region Laterality Modality Abdomen/Pelvis Other Specimen (Source) Anatomical Location Collection Method / Collectio n Time Received Time / Laterality Volume Narrative 08/01/2005 12:00 AM PRODUCTION CONTROLLER See Historical Hospital Medical Record f or documentation Procedure Note Provider, Historical - 11/14/2020Formatt ing of this note might be different from the original. See Historical Hospital Medical Record f or documentation Historical Provider IMG DIAGNOSTIC IMAGING ORDER ABBI documented in this encounter Visit Diagnoses Not on filedocumented in this encounter Care Teams Softball Core Molder Relationship Specialty Start Date End Date Marlee Coles MD PCP - General 02/10/15 05/18/21 [place] [address] [address] [facility] [address] [place] [address] Tony Gray MD Referring Physician Orthopedics 10/01/14 Conner Harper MD MD Orthopedics 10/01/[address] [place], [place] [address] documented as of this encounter
--- OUTSIDE RECORDS SUMMARY | 2022-04-22 09:42 | XMS_ITS | Encounter Summary ---
:1955 Author Organization [place] Address [address] [facility] [place] [address] Care Team Providers Name Role Phone Tony Gray MD Unavailable Conner Harper MD Unavailable Marivel Cavazos PA-C Unavailable Zhang Masterson Primary Care Provider Reason for Visit Reason Onset Date Comments Patient/info Update 10/18/2021 Encounter Details Date Type Department Care Team Description 10/18/2021 [facility] Ortiz Gill Patient/info [place] [address] [place] [address] [place] [address] [phone] Social History Tobacco Use Types Packs/Day Years [...] of 10/21/21 Patient stated understanding. RAFAEL Miranda [facility] Telephone Encounter - Ortiz Perez MD - 10/18/2021 11:09 AM CDT Thanks, he may have had some left over because he was taking 4/day in the beginning of the month. New refill approved. DO Kary Campuzano [facility] Telephone Encounter - Lauren Mcmillan RN - 10/18/2021 10:12 AM CDT Routing to provider to review. See pill count below. CSA: 09/22/21- signed CSA 09/01/21(see 09/14/21 encounter) UDS: 05/20/21([place] provider) Routing to provider to review medication [...] been taking 5 tabs/day. Lauren KRAFT, RN Reject Opener [facility] Telephone Encounter - Cely Toscano 10/18/2021 8:49 AM CDT Patient calling to state he has 18 tablets of HYDROcodone-acetaminophen (NORCO) 10-325 MG per tablet. 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
--- OUTSIDE RECORDS SUMMARY | 2022-04-22 09:42 | XMS_ITS | Encounter Summary ---
:1955 Author Organization [place] Address [address] [facility] [place] [address] Care Team Providers Name Role Phone Tony Gray MD Unavailable Conner Harper MD Unavailable Marlee Coles MD Primary Care Provider [phone] Encounter Details Date Type Department Care Team Description 11/14/2020 [facility] - [facility] Provider, Histor ical Social History Tobacco Use Types Packs/Day Years Used Date Smoking Tobacco: Never Assessed Sex Assigned at Date Recorded Not on file documented as of this encounter Plan of Treatment Upcoming Encounters Date Type Specialty Care Team Description 04/26/2022 Virtual Visit Pain & [place] [address] [place], [place] [address] (Wo rk) documented as of this encounter Procedures Procedure Name Priority Date/Time Associated Diagnosis Comme nts XR FLUORO TIME 0/1 Routine 07/25/2005 12:00 AM Re sults for this HOUR SLIP COVER CUTTER procedure are i n the results section. documented in this encounter Results XR Fluoro Time 0/1 Hour (07/25/2005 12:00 AM SLIP COVER CUTTER) Anatomical Region Laterality Modality Abdomen/Pelvis Other Specimen (Source) Anatomical Location Collection Method / Collectio n Time Received Time / Laterality Volume Narrative 07/25/2005 12:00 AM SLIP COVER CUTTER See Historical Hospital Medical Record f or documentation Procedure Note Provider, Historical - 11/14/2020Formatt ing of this note might be different from the original. See Historical Hospital Medical Record f or documentation Historical Provider IMG DIAGNOSTIC IMAGING ORDER ABBI documented in this encounter Visit Diagnoses Not on filedocumented in this encounter Care Teams Recreation Professor Relationship Specialty Start Date End Date Marlee Coles MD PCP - General 02/10/15 05/18/21 [place] [address] [address] [facility] [address] [place] [address] Tony Gray MD Referring Physician Orthopedics 10/01/14 Conner Harper MD MD Orthopedics 10/01/[address] [place], [place] [address] documented as of this encounter
--- OUTSIDE RECORDS SUMMARY | 2022-04-22 09:42 | XMS_ITS | Encounter Summary ---
:1955 Author Organization [place] Address [address] [facility] [place] [address] Care Team Providers Name Role Phone Tony Gray MD Unavailable Conner Harper MD Unavailable Marlee Coles MD Primary Care Provider [phone] Reason for Visit Reason Comments Back Pain Encounter Details Date Type Department Care Team Description 11/11/2020 Hospital Encounter [facility] Codie Cavazos [place] pain syndrome; Pain Center Marivel Hernadez PA-C Degeneration of lumbar or lumbosacral in tervertebral disc; [address] [facility] [address] Lumbar radiculopathy; [place] [address] [place], [place] Chronic, con tinuous use of opioids [address] [place], [place] [phone] [address] (Work) [phone] Social History Tobacco Use Types Packs/Day Years [...] of opioids Pain location and description: See MOTION PICTURE CAMERAMAN note Radiation of pain: Buttocks bilaterally, lower legs. Gait disturbance: None reported, denies recent falls. Denies AD. Exacerbating factors: walking, sitting, standing Alleviating factors: Pain medications, rest, ice Associated symptoms: Sleep disturbance due to pain. Numbness in bilateral hands and feet, legs. Denies weakness, bowel or bladder incontinence, fever/chills, unexplained weight loss. Functional Symptoms: See MOTION PICTURE CAMERAMAN note Adverse effects of medications: Denies constipation, drowsiness, dizziness, nausea/abdominal symptoms, itching, headache. Current treatment efficacy: Poor. Not having pain control with Bel[place]uca yet. Current treatment compliance: Good; denies self-escalation of doses and no early refill requests. UDT appropriate. Keeps appointment follow-ups with pain center. Purchased stationary bike uses 15-30 every morning - better tolerated than walking. Since last visit, he saw service captain, cannot recall name of provider/office. 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 He is meeting with [facility] today for SCS recommendations, states he will [...] station: Ambulates independently with normal gait. Opioid [place] Precautions: UDT- 06/10/20, results as expected Consent - 04/01/20 Agreement- 04/01/20 Pharmacy- as documented TEST BORING CREW CHIEF- reviewed 11/11/2020 as expected Count- n/a Psychological evaluation n/a MME- buprenorphine Pharmacogenetic testing n/a Imaging: EXAM: XR THORACIC SPINE 2 VWS LOCATION: [facility] DATE/TIME: 01/30/2019 9:09 AM ?? [...] copy of the office notes faxed here #[phone] Follow-up in 4 weeks with Marivel in office Marivel Cavazos PA-C [facility] [address] [place] [address]. [address] [place] [address] 20 minutes spent on the date of [...] copy of the office notes faxed here #[phone] Follow-up in 4 weeks with Marivel in office documented in this encounter Plan of Treatment Upcoming Encounters Date Type Specialty Care Team Description 04/26/2022 Virtual Visit Pain & [place] [address] [place], [place] [address] (Wo rk) documented as of this encounter Visit Diagnoses Diagnosis Chronic pain syndrome Degeneration of lumbar or lumbosacral in tervertebral disc Lumbar radiculopathy Thoracic or lumbosacral neuritis or radi culitis, unspecified Chronic, continuous use of opioids Opioid type dependence, continuous documented in this encounter Care Teams Station Agent Relationship Specialty Start Date End Date Marlee Coles MD PCP - General 02/10/15 05/18/21 [place] [address] [address] [facility] [address] [place] [address] Tony Gray MD Referring Physician Orthopedics 10/01/14 Conner Harper MD MD Orthopedics 10/01/14 [facility] [place], [place] [address] [place], [place] [id number] documented as of this encounter
--- OUTSIDE RECORDS SUMMARY | 2022-04-22 09:42 | XMS_ITS | Encounter Summary ---
:1955 Author Organization [place] Address [address] [facility] [place] [address] Care Team Providers Name Role Phone Tony Gray MD Unavailable Conner Harper MD Unavailable Marlee Coles MD Primary Care Provider [phone] Encounter Details Date Type Department Care Team Description 10/07/2020 Ambulatory - [facility] Pain Anjali Naylor, [place] RN [address] [facility] [address] [place] [address] Social History Tobacco Use Types Packs/Day Years Used Date Smoking Tobacco: Never Assessed Sex Assigned at Date Recorded Not on file documented as of this encounter Plan of Treatment Upcoming Encounters Date Type Specialty Care Team Description 04/26/2022 Virtual Visit Pain & [place] [address] [place], [place] [address] (Wo rk) documented as of this encounter Visit Diagnoses Not on filedocumented in this encounter Care Teams Shirt Line Operator Relationship Specialty Start Date End Date Marlee Coles MD PCP - General 02/10/15 05/18/21 [place] [address] [address] [place], [place] [id number] Tony Gray MD Referring Physician Orthopedics 10/01/14 Conner Harper MD MD Orthopedics 10/01/14 [facility] [place] [address] documented as of this encounter
--- OUTSIDE RECORDS SUMMARY | 2022-04-22 09:43 | XMS_ITS | Encounter Summary ---
:1955 Author Organization [place] Address [address] [place] [address] Care Team Providers Name Role Phone Tony Gray MD Unavailable Conner Harper MD Unavailable Marlee Coles MD Primary Care Provider [phone] Reason for Visit Reason Comments Back Pain Foot Pain Encounter Details Date Type Department Care Team Description 06/13/2019 Hospital Encounter [facility] Codie Cavazos [place], continuous use of opioids; Pain Center Marivel Hernadez PA-C Chronic pain syndrome; [address] [place] [address] [place] Degeneration of lumbar or lumbosacral in tervertebral disc [place] [address] [place], [place] [address] [place], [place] [phone] [address] (Work) [phone] Social History Tobacco Use Types Packs/Day Years [...] 106.6 kg (235 lb) 06/13/2019 9:27 AM SUBSTATION ELECTRICIAN Height 172.7 cm (5' 8) 06/13/2019 9:27 AM SUBSTATION ELECTRICIAN Body Mass Index 35.73 06/13/2019 9:27 AM SUBSTATION ELECTRICIAN documented in this encounter Medications at Time [...] up to 1 hour every day in [place] with his . Since the last Pain Center visit, the patient denies any use of anticoagulant medications. Denies any ED/urgent care visits. He had SCS trial and implant on 11/29/18. He saw Dr. Loyola on 01/30/19 and thoracic lead x-ray was negative. He has continued to report worsened pain since his implant and increased pain in bilateral legs, was advised by [facility] sales donor recruitment representative that he had settings too high which aggravated his symptoms. He states he did meet [facility] rep Cely and was able to get good coverage and stay below 5. He feels he has been lied to several times with communication with Francisco from [facility] and would prefer not to workwith him again. States he was called by rep 1.5 weeks after he traveled to [place], felt he had improvement after this programming but still having pain in his legs was advised to have settings between2-3. He states he hasn't had any further instruction from [facility] since that time but would like another reprogramming. [place] is in [place] until [place] and then flying back to [place]. He would like to see someone tomorrow; I called support line but they are closed today. States when he turns down the unit his leg pain does get better. States charging is fine and keeping on 24 hours. He states if no improvement in the next 2-[address] Loyola when he returns from [facility] to discuss explanting the device. ?? He [...] difficulty rising from a seated position. Opioid [place] Precautions: UDS/Swab- collected 06/13/19, results pending Consent - 12/13/18 Agreement- 12/13/18 Pharmacy- as documented REAL ESTATE LEGAL ASSISTANT- reviewed 06/13/19 as expected; last refill Vicodin on 04/23/19 which lasted longer than 28 daysas sometimes taking less than 6 tabs per day. Count- n/a Psychological evaluation n/a MME- up to 60 Pharmacogenetic testing n/a DIANE 03/26/19 Imaging: EXAM: XR THORACIC SPINE 2 VWS LOCATION: [facility] DATE/TIME: 01/30/2019 9:09 AM ?? INDICATION: [...] did ask them about an option for [place] if they could not accommodate you tomorrow. [...] to age, race, gender, socioeconomic status or anglican affiliation. Follow-up in 10 weeks Marivel Cavazos PA-C [facility] [address] [facility]. [address] [place] [address] TATION ELECTRICIAN documented in this encounter Miscellaneous Notes Patient Instructions - HE - Marivel Cavazos PA-C - 06/13/2019 9:40 AM SUBSTATION ELECTRICIAN Continue Vicodin 10/325 mg 1-2 tablet every [...] did ask them about an option for [place] if they could not accommodate you tomorrow. Diagnostics: UDT/Blood collected today results are pending. Patient required a random Drug Test due to the need to comply with [facility] Policy Guidelines and CDC Guideline for the [...] to age, race, gender, socioeconomic status or anglican affiliation. Follow-up in 10 weeks Marivel TATION ELECTRICIAN documented in this encounter Plan of Treatment Upcoming Encounters Date Type Specialty Care Team Description 04/26/2022 Virtual Visit Pain & [place] [address] [facility] [place] [address] (Wo rk) documented as of this encounter Procedures Procedure Name Priority Date/Time Associated Comments Diagnosis DRUG CONFIRMATION Routine 06/13/2019 12:25 Result s for this PANEL URINE WITH PM SUBSTATION ELECTRICIAN procedure a re in CREAT the results section. documented in this encounter Results Drug Confirmation Panel Urine with Creat (06/13/2019 12:25 PM SUBSTATION ELECTRICIAN) Component Value Ref Test Analysis Performed At [facility] Range Method Time Signature Methadone (cutoff Not 06/15/2019 [facility] 150 ng/mL) Detected 7:56 PM SUBSTATION ELECTRICIAN LABORATORIES Propoxyphene Not 06/15/2019 [facility] (cutoff 300 ng/mL) Detected 7:56 PM SUBSTATION ELECTRICIAN LABORATOR [facility] Tramadol (cutoff Not 06/15/2019 [facility] 100 ng/mL) Detected 7:56 PM SUBSTATION ELECTRICIAN LABORATORIES Benzoylecgonine Not 06/15/2019 [facility] (cutoff 150 ng/mL) Detected 7:56 PM SUBSTATION ELECTRICIAN LABORATOR [facility] Barbiturates Not 06/15/2019 [facility] (cutoff 200 ng/mL) Detected 7:56 PM SUBSTATION ELECTRICIAN LABORATOR [facility] Ethyl Glucuronide Not 06/15/2019 [facility] (cutoff 500 ng/mL) Detected 7:56 PM SUBSTATION ELECTRICIAN LABORATOR [facility] Marijuana Not 06/15/2019 [facility] Metabolite (cutoff Detected 7:56 PM SUBSTATION ELECTRICIAN LABORATOR [facility] 20 ng/mL) PCP (cutoff 25 Not 06/15/2019 [facility] ng/mL) Detected 7:56 PM SUBSTATION ELECTRICIAN LABORATORIES Carisoprodol Not 06/15/2019 [facility] (cut-off 100 Detected 7:56 PM SUBSTATION ELECTRICIAN LABORATORIES ng/mL) Comment: The carisoprodol immunoassay has cross-r eactivity to carisoprodol and meprobamate. Codeine (cutoff 40 Not Detected 06/15/2019 7:56 PM [facility] ng/mL) SUBSTATION ELECTRICIAN Morphine (cutoff 20 Not Detected 06/15/2019 7:56 P M [facility] ng/mL) SUBSTATION ELECTRICIAN 6-acetylmorphine (cutoff Not Detected 06/15/2019 7 :56 PM [facility] 20 ng/mL) SUBSTATION ELECTRICIAN Oxycodone (cutoff 40 Not Detected 06/15/2019 7:56 PM [facility] ng/mL) SUBSTATION ELECTRICIAN Noroxycodone (cutoff 100 Not Detected 06/15/2019 7 :56 PM [facility] ng/mL) SUBSTATION ELECTRICIAN Oxymorphone (cutoff 40 Not Detected 06/15/2019 7:5 6 PM [facility] ng/mL) SUBSTATION ELECTRICIAN Noroxymorphone (cutoff Not Detected 06/15/2019 7:5 6 PM [facility] 100 ng/mL) SUBSTATION ELECTRICIAN Hydrocodone (cutoff 40 Present 06/15/2019 7:56 P M [facility] ng/mL) SUBSTATION ELECTRICIAN Norhydrocodone (cutoff Present 06/15/2019 7:56 P M [facility] 100 ng/mL) SUBSTATION ELECTRICIAN Hydromorphone (cutoff 20 Not Detected 06/15/2019 7 :56 PM [facility] ng/mL) SUBSTATION ELECTRICIAN Buprenorphine (cutoff 5 Not Detected 06/15/2019 7: 56 PM [facility] ng/mL) SUBSTATION ELECTRICIAN Norbuprenorphine (cutoff Not Detected 06/15/2019 7 :56 PM [facility] 20 ng/mL) SUBSTATION ELECTRICIAN Fentanyl (cutoff 2 Not Detected 06/15/2019 7:56 PM [facility] ng/mL) SUBSTATION ELECTRICIAN Norfentanyl (cutoff 2 Not Detected 06/15/2019 7:56 PM [facility] ng/mL) SUBSTATION ELECTRICIAN Meperidine metabolite Not Detected 06/15/2019 7:56 PM [facility] (cutoff 50 ng/mL) SUBSTATION ELECTRICIAN Tapentadol (cutoff 100 Not Detected 06/15/2019 7:5 6 PM [facility] ng/mL) SUBSTATION ELECTRICIAN Oyofdbxdfc-q-Xztr Not Detected 06/15/2019 7:56 PM [facility] (cutoff 200 ng/mL) SUBSTATION ELECTRICIAN Amphetamine (cutoff 50 Not Detected 06/15/2019 7:5 6 PM [facility] ng/mL) SUBSTATION ELECTRICIAN Methamphetamine (cutoff Not Detected 06/15/2019 7: 56 PM [facility] 400 ng/mL) SUBSTATION ELECTRICIAN MDMA- Ecstasy (cutoff Not Detected 06/15/2019 7:56 PM [facility] 200 ng/mL) SUBSTATION ELECTRICIAN MDA (cutoff 200 ng/mL) Not Detected 06/15/2019 7:5 6 PM [facility] SUBSTATION ELECTRICIAN MDEA- Vashti (cutoff 200 Not Detected 06/15/2019 7:56 PM [facility] ng/mL) SUBSTATION ELECTRICIAN Phentermine (cutoff 100 Not Detected 06/15/2019 7: 56 PM [facility] ng/mL) SUBSTATION ELECTRICIAN Methylphenidate (cutoff Not Detected 06/15/2019 7: 56 PM [facility] 100 ng/mL) SUBSTATION ELECTRICIAN Alprazolam (cutoff 40 Not Detected 06/15/2019 7:56 PM [facility] ng/mL) SUBSTATION ELECTRICIAN Djsrk-VL-Ovaqdbkqej Not Detected 06/15/2019 7:56 P M [facility] (cutoff 20 ng/mL) SUBSTATION ELECTRICIAN Clonazepam (cutoff 20 Not Detected 06/15/2019 7:56 PM [facility] ng/mL) SUBSTATION ELECTRICIAN 7-Aminoclonazepam Not Detected 06/15/2019 7:56 PM [facility] (cutoff 40 ng/mL) SUBSTATION ELECTRICIAN Diazepam (cutoff 50 Not Detected 06/15/2019 7:56 P M [facility] ng/mL) SUBSTATION ELECTRICIAN Nordiazepam (cutoff 50 Not Detected 06/15/2019 7:5 6 PM [facility] ng/mL) SUBSTATION ELECTRICIAN Oxazepam (cutoff 50 Not Detected 06/15/2019 7:56 P M [facility] ng/mL) SUBSTATION ELECTRICIAN Temazepam (cutoff 50 Not Detected 06/15/2019 7:56 PM [facility] ng/mL) SUBSTATION ELECTRICIAN Lorazepam (cutoff 60 Not Detected 06/15/2019 7:56 PM [facility] ng/mL) SUBSTATION ELECTRICIAN Midazolam (cutoff 20 Not Detected 06/15/2019 7:56 PM [facility] ng/mL) SUBSTATION ELECTRICIAN Zolpidem (cutoff 20 Not Detected 06/15/2019 7:56 P M [facility] ng/mL) SUBSTATION ELECTRICIAN Creatinine, Urine 41.7 20.0 - 06/15/2019 7:56 PM [facility] 400.0 SUBSTATION ELECTRICIAN mg/dL Pain Management Drug See Below 06/15/2019 7:56 PM [facility] Panel SUBSTATION ELECTRICIAN Comment: Methodology: Qualitative Enzyme Immunoas say and [...] and its performa nce characteristics determined by [facility]. The U.S . Food and Drug Administration has not approved or clear ed this test; however, FDA clearance or approval is not currently r equired for clinical use. The results are not intended to be used as the sole means for clinical diagnosis or patient management decisions. EER Pain Mgt Drug Chew, [place] See Note 06/15/2019 7 :56 PM SUBSTATION ELECTRICIAN [employer] Spec/[facility] Comment: Access [employer] Enhanced Report using either link below: -Direct access: [email or web address] -Enter Username, Password: [email or web address] Username: [email or web address] Password: [email or web address] Performed by [facility], [address] [place] [id number] [email or web address], Da Thakur MD, Lab. Director Specimen Anatomical Collection Method Collection Time Receive d Time (Source) Location / / Volume Laterality Urine specimen Non-blood 06/13/2019 12:25 9 9:46 (specimen) Collection / PM SUBSTATION ELECTRICIAN PM SUBSTATION ELECTRICIAN Unknown Narrative [facility] - 06/15/2019 7:56 PM SUBSTATION ELECTRICIAN Marivel Cavazos PA-C LAB - URINE ORDERABLES Performing Organization Address City/State/ZIP Code Phon e Number [employer] [place], [place] [phone] [place] [phone] [facility] [address] [place] [phone] [facility] [address] [place] [phone], [facility] documented in this encounter Visit Diagnoses Diagnosis Chronic, continuous use of opioids Opioid type dependence, continuous Chronic pain syndrome Degeneration of lumbar or lumbosacral in tervertebral disc documented in this encounter Care Teams Alumni Relations Coordinator Relationship Specialty Start Date End Date Marlee Coles MD PCP - General 02/10/15 05/18/21 [facility] [place] [address] [address] Tony Gray MD Referring Physician Orthopedics 10/01/14 Conner Harper MD MD Orthopedics 10/01/14 [facility] [address] documented as of this encounter
--- OUTSIDE RECORDS SUMMARY | 2022-04-22 09:43 | XMS_ITS | Encounter Summary ---
:1955 Author Organization [place] Address [address] [facility] [place] [address] Care Team Providers Name Role Phone Tony Gray MD Unavailable Conner Harper MD Unavailable Marlee Coles MD Primary Care Provider [phone] Encounter Details Date Type Department Care Team Description 01/14/2020 Hospital Encounter [facility] Marivel Cavazos Chronic pain Pain Center MATT Hernadez [facility] [address] [place] [address] [place] [phone] Social History Tobacco Use Types Packs/Day Years [...] Pain & [place] [address] [place], [place] [address] (Wo rk) documented as of this encounter Visit Diagnoses Diagnosis Chronic pain syndrome documented in this encounter Care Teams Filtrose Crusher Relationship Specialty Start Date End Date Marlee Coles MD PCP - General 02/10/15 05/18/21 [place] [address] [address] [id number] Tony Gray MD Referring Physician Orthopedics 10/01/14 Conner Harper MD MD Orthopedics 10/01/[address] [place], [place] [address] documented as of this encounter
--- OUTSIDE RECORDS SUMMARY | 2022-04-22 09:43 | XMS_ITS | Encounter Summary ---
:1955 Author Organization [place] Address [address] [place] [address] Care Team Providers Name Role Phone Tony Gray MD Unavailable Conner Harper MD Unavailable Marlee Coles MD Primary Care Provider [phone] Reason for Visit Reason Comments Other SCS Implant Encounter Details Date Type Department Care Team Description [facility] Jessica RN [address] [facility] [address] [place] [address] Social History Tobacco Use Types Packs/Day Years Used Date Smoking Tobacco: Never Assessed Sex Assigned at Date Recorded Not on file documented as of this encounter Miscellaneous Notes Telephone Encounter - Hawa Jiang - 11/15/2018 9:20 AM CDT Called pt to schedule SCS Implant 11/29 at 0700 at [facility]. Reviewed and mailed pre-op instructions to the pt. He is aware of need for pre- op physical and company driver. E-mail sent to vendor to notify of surgery date. documented in this encounter Plan of Treatment Upcoming Encounters Date Type Specialty Care Team Description 04/26/2022 Virtual Visit Pain & [place] [address] [place], [place] [address] (Wo rk) documented as of this encounter Visit Diagnoses Diagnosis Lumbar radiculopathy Thoracic or lumbosacral neuritis or radi culitis, unspecified documented in this encounter Care Teams Welding Foreman Relationship Specialty Start Date End Date Marlee Coles MD PCP - General 02/10/15 05/18/21 [place] [address] [address] [address] Tony Gray MD Referring Physician Orthopedics 10/01/14 Conner Harper MD MD Orthopedics 10/01/[address] [place], [place] [address] documented as of this encounter
--- OUTSIDE RECORDS SUMMARY | 2022-04-22 09:43 | XMS_ITS | Encounter Summary ---
:1955 Author Organization [place] Address [address] [place] [address] Care Team Providers Name Role Phone Tony Gray MD Unavailable Conner Harper MD Unavailable Marlee Coles MD Primary Care Provider [phone] Reason for Visit Reason Comments Other Status re: SCS Implant Encounter Details Date Type Department Care Team Description 12/07/2018 Communication - [facility] Hawa Jiang Other (Status re: [facility] Jessica, RN SCS Implant) [address] [facility] [address] [place] [address] Social History Tobacco Use Types [...] Pain & [place] [address] [place], [place] [address] (Wo rk) documented as of this encounter Visit Diagnoses Not on filedocumented in this encounter Care Teams Health Care Marketing Specialist Relationship Specialty Start Date End Date Marlee Coles MD PCP - General 02/10/15 05/18/21 [place] [address] [address] [id number] Tony Gray MD Referring Physician Orthopedics 10/01/14 Conner Harper MD MD Orthopedics 10/01/[address] [place], [place] [address] documented as of this encounter
--- OUTSIDE RECORDS SUMMARY | 2022-04-22 09:43 | XMS_ITS | Encounter Summary ---
:1955 Author Organization [place] Address [address] [place] [address] Care Team Providers Name Role Phone Tony Gray MD Unavailable Conner Harper MD Unavailable Marlee Coles MD Primary Care Provider [phone] Reason for Visit Reason Comments Back Pain Foot Pain Encounter Details Date Type Department Care Team Description 10/03/2019 Hospital Encounter [facility] Iain Cavazos type dependence, continuous (H); Pain Center Marivel Hernadez PA-C Chronic pain syndrome; [address] [facility] [address] Degeneration of lumbar or lumbosacral in tervertebral disc; [place] [address] [employer], [place] Lumbar radic ulopathy [address] [place], [place] [phone] [address] (Work) [phone] Social History Tobacco Use Types Packs/Day Years [...] 4. Lumbar radiculopathy Pain location and description: 11/26 constant radiating pain in low back, buttock, [...] in bilateral legs, was advised by [employer] food service sales representatives that he had settings too high which aggravated his symptoms. States since last visit his pain is unchanged, rated 4-6/10. Denies recent falls or injuries. He is still in [place] due to COVID19 and planning to return on 10/15/19. He states he hasn't been ill. He will stay at his son's house for a couple weeks and unsure if the nuno will be open for his RV use. He plans to be in [place] through the summer and early fall. He [...] it last until he returned back [facility] as he had to stretch it [...] loss, psychoses, suicidal ideation, substance use/abuse. Opioid [place] Precautions: UDT- reviewed from 06/13/19, results as expected Consent - 12/13/18 Agreement- 12/13/18 Pharmacy- as documented FERRY BOAT CAPTAIN- reviewed 10/03/2019 as expected Count- n/a Psychological evaluation n/a MME- up to 60 Pharmacogenetic testing n/a DIANE 03/26/19 Imaging: EXAM: XR THORACIC SPINE 2 VWS LOCATION: [facility] DATE/TIME: 01/30/2019 9:09 AM ?? [...] but has been out of state in [place] and wasn't willing to drive to [place] where they could see him. He would like to reprogram here in [place] at his next appointment. If this isn't [...] pain. Follow-up in 8 weeks with Marivel Tavear rep here for reprogramming. Call Time: 25 minutes Start - 1346 Stop - 1411 Marivel Cavazos PA-C [facility] [address] [facility] [place] [address] Latisha Bautista - 10/03/2019 1:40 PM CDT Images from the original note were not included. Progress Notes by Latisha Bautista CMA at 10/03/2019 1:40 PM Author: Latisha Bautista CMA Service: -- Author Type: Cell Operation Supervisor Filed: 10/03/2019 5:02 PM Date of Service: 10/03/2019 1:40 PM Status: Signed Vice President Underwriting: Latisha Bautista CMA (Cell Operation Supervisor) Tremaine Plunkett is a 64 y.o. male [...] - HE - Marivel Cavazos PA-C - 10/03/2019 1:40 [...] Pain & [place] [address] [place], [place] [address] (Wo rk) documented as of this encounter Visit Diagnoses Diagnosis Opioid type dependence, continuous (H) Opioid type dependence, continuous Chronic pain syndrome Degeneration of lumbar or lumbosacral in tervertebral disc Lumbar radiculopathy Thoracic or lumbosacral neuritis or radi culitis, unspecified documented in this encounter Care Teams Principal Secretary Relationship Specialty Start Date End Date Marlee Coles MD PCP - General 02/10/15 05/18/21 [facility] [place] [address] [address] [place] [address] Tony Gray MD Referring Physician Orthopedics 10/01/14 Conner Harper MD MD Orthopedics 10/01/14 [facility] [place], [place] [id number] [place] [address] documented as of this encounter
--- OUTSIDE RECORDS SUMMARY | 2022-04-22 09:43 | XMS_ITS | Encounter Summary ---
:1955 Author Organization [place] Address [address] [place] [address] Care Team Providers Name Role Phone Tony Gray MD Unavailable Conner Harper MD Unavailable Marlee Coles MD Primary Care Provider [phone] Reason for Visit Reason Comments Patient/info Update Encounter Details Date Type Department Care Team Description 03/04/2020 [facility] Jessica RN [address] [facility] [address] [place] [address] Social History Tobacco Use Types [...] Pain & [place] [address] [place], [place] [address] (Wo rk) documented as of this encounter Visit Diagnoses Diagnosis Chronic pain syndrome documented in this encounter Care Teams Country Singer Relationship Specialty Start Date End Date Marlee Coles MD PCP - General 02/10/15 05/18/21 [place] [address] [address] [address] Tony Gray MD Referring Physician Orthopedics 10/01/14 Conner Harper MD MD Orthopedics 10/01/[address] [place], [place] [address] [place] [address] documented as of this encounter
--- OUTSIDE RECORDS SUMMARY | 2022-04-22 09:43 | XMS_ITS | Encounter Summary ---
:1955 Author Organization [place] Address [address] [facility] [place] [address] Care Team Providers Name Role Phone Tony [...] Pain & [place] [address] [place], [place] [address] (Wo rk) documented as of this encounter Visit Diagnoses Not on filedocumented in this encounter Care Teams Power Sweeper Operator Relationship Specialty Start Date End Date Marlee Coles PCP - General 02/10/15 [place] [address] [address] [place], [place] [phone] Zhang Masterson PCP - General Family Medicine 05/19/[address] [place] [address] Tony Gray MD Referring Physician Orthopedics 10/01/14 Conner Harper MD MD Orthopedics 10/01/[address] [place] [address] Marivel Cavazos, Assigned Surgical Provider [address], [place] [id number] documented as of this encounter
--- OUTSIDE RECORDS SUMMARY | 2022-04-22 09:43 | XMS_ITS | Encounter Summary ---
:1955 Author Organization [place] Address [address] [place] [address] Care Team Providers Name Role Phone Tony Gray MD Unavailable Conner Harper MD Unavailable Marlee Coles MD Primary Care Provider [phone] Encounter Details Date Type Department Care Team Description 06/10/2020 Hospital Encounter [facility] Codie Cavazos [place] pain syndrome; Pain Center Marivel Hernadez PA-C Chronic, continuous use of opioids; [address] [address] [address] Degeneration of lumbar or lumbosacral in tervertebral disc; [place] [address] [place], [place] Lumbar radic ulopathy 101 [address] [place], [place] [phone] [address] (Work) [phone] Social History Tobacco Use Types Packs/Day Years [...] 106.6 kg (235 lb) 06/10/2020 10:40 AM FORCE VARIATION EQUIPMENT TENDER Height 172.7 cm (5' 8) 06/10/2020 10:40 AM FORCE VARIATION EQUIPMENT TENDER Body Mass Index 35.73 06/10/2020 10:40 AM FORCE VARIATION EQUIPMENT TENDER documented in this encounter Medications at Time [...] fever/chills, unexplained weight loss. Functional Symptoms: See CRIMINAL INTELLIGENCE SPECIALIST note Adverse effects of medications: Denies constipation, [...] walking 1 mile as heis wintering in [place] near [facility]. He drove 3 days to get home this week and will stay through holidays and return to [place] next week. He plans to do next [...] not do this until he returns from [place] in the spring as he only returning briefly for [place]. Sleep study - has not followed through [...] some additional APAP as was advised by leave coordinator this is safer than Ibuprofen. Average pain [...] Musculoskeletal- Gait and station: Ambulates independently. Opioid [place] Precautions: UDT- Collected 06/10/20, results pending Consent - 04/01/20 Agreement- 04/01/20 Pharmacy- as documented SILK SCREEN PROCESSOR- reviewed 06/10/20 as expected Count- n/a Psychological evaluation n/a MME- up to 60 Pharmacogenetic testing n/a Imaging: EXAM: XR THORACIC SPINE 2 VWS LOCATION: [facility] DATE/TIME: 01/30/2019 9:09 AM ?? INDICATION: [...] needed for itching - refill sent to [facility] Continue methocarbamol 1 tab at night as needed, monitor for drowsiness. Saw Ayse today for reprogramming recommendations. Discontinued lamictal due to side effects. Already disposed of medication. Diagnostics: UDT/Blood collected today results are pending. Patient required a random Drug Test due to the need to comply with [facility] Model Policy Guidelines and CDC Guideline for [...] to age, race, gender, socioeconomic status or yazidi affiliation. Follow-up in 8-10 weeks with Marivel Cavazos PA-C [facility] [address] [facility] [place] [address] E VARIATION EQUIPMENT TENDER documented in this encounter Miscellaneous Notes Patient Instructions - HE - Marivel Cavazos PA-C - 06/10/2020 11:00 AM FORCE VARIATION EQUIPMENT TENDER Continue Vicodin 10/325 mg 2 tabs three [...] to age, race, gender, socioeconomic status or yazidi affiliation. Follow-up in 8-10 weeks with Marivel lagunas E VARIATION EQUIPMENT TENDER documented in this encounter Plan of Treatment Upcoming Encounters Date Type Specialty Care Team Description 04/26/2022 Virtual Visit Pain & [place] [address] [facility] [place] [address] (Wo rk) documented as of this encounter Procedures Procedure Name Priority Date/Time Associated Comments Diagnosis DRUG CONFIRMATION Routine 06/10/2020 2:23 PM Resu lts for this PANEL URINE WITH FORCE VARIATION EQUIPMENT TENDER procedure a re in [facility]AT the results section. documented in this encounter Results Drug Confirmation Panel Urine with Creat (06/10/2020 2:23 PM FORCE VARIATION EQUIPMENT TENDER) Component Value Ref Test Analysis Performed At [facility] gist Range Method Time Signature Methadone (cutoff Not 06/15/2020 [facility] 150 ng/mL) Detected 1:07 PM FORCE VARIATION EQUIPMENT TENDER [facility] Propoxyphene Not 06/15/2020 [facility] (cutoff 300 ng/mL) Detected 1:07 PM FORCE VARIATION EQUIPMENT TENDER LABORATOR [facility] Tramadol (cutoff Not 06/15/2020 [facility] 100 ng/mL) Detected 1:07 PM FORCE VARIATION EQUIPMENT TENDER [facility] Benzoylecgonine Not 06/15/2020 [facility] (cutoff 150 ng/mL) Detected 1:07 PM FORCE VARIATION EQUIPMENT TENDER LAB[facility]ATOR [facility] Barbiturates Not 06/15/2020 [facility] (cutoff 200 ng/mL) Detected 1:07 PM FORCE VARIATION EQUIPMENT TENDER LAB[facility] Ethyl Glucuronide Not 06/15/2020 [facility] (cutoff 500 ng/mL) Detected 1:07 PM FORCE VARIATION EQUIPMENT TENDER LAB[facility] Marijuana Not 06/15/2020 [facility] Metabolite (cutoff Detected 1:07 PM FORCE VARIATION EQUIPMENT TENDER LABORATOR [facility] 20 ng/mL) PCP (cutoff 25 Not 06/15/2020 [facility] ng/mL) Detected 1:07 PM FORCE VARIATION EQUIPMENT TENDER [facility] Carisoprodol Not 06/15/2020 [facility] (cut-off 100 Detected 1:07 PM FORCE VARIATION EQUIPMENT TENDER [facility] ng/mL) Comment: The carisoprodol immunoassay has cross-r eactivity to carisoprodol and meprobamate. Codeine (cutoff 40 Not Detected 06/15/2020 1:07 PM [facility] ng/mL) FORCE VARIATION EQUIPMENT TENDER Morphine (cutoff 20 Not Detected 06/15/2020 1:07 P M [facility] ng/mL) FORCE VARIATION EQUIPMENT TENDER 6-acetylmorphine (cutoff Not Detected 06/15/2020 1 :07 PM [facility] 20 ng/mL) FORCE VARIATION EQUIPMENT TENDER Oxycodone (cutoff 40 Not Detected 06/15/2020 1:07 PM [facility] ng/mL) FORCE VARIATION EQUIPMENT TENDER Noroxycodone (cutoff 100 Not Detected 06/15/2020 1 :07 PM [facility] ng/mL) FORCE VARIATION EQUIPMENT TENDER Oxymorphone (cutoff 40 Not Detected 06/15/2020 1:0 7 PM [facility] ng/mL) FORCE VARIATION EQUIPMENT TENDER Noroxymorphone (cutoff Not Detected 06/15/2020 1:0 7 PM [facility] 100 ng/mL) FORCE VARIATION EQUIPMENT TENDER Hydrocodone (cutoff 40 Present 06/15/2020 1:07 P M [facility] ng/mL) FORCE VARIATION EQUIPMENT TENDER Norhydrocodone (cutoff Present 06/15/2020 1:07 P M [facility] 100 ng/mL) FORCE VARIATION EQUIPMENT TENDER Hydromorphone (cutoff 20 Not Detected 06/15/2020 1 :07 PM [facility] ng/mL) FORCE VARIATION EQUIPMENT TENDER Buprenorphine (cutoff 5 Not Detected 06/15/2020 1: 07 PM [facility] ng/mL) FORCE VARIATION EQUIPMENT TENDER Norbuprenorphine (cutoff Not Detected 06/15/2020 1 :07 PM [facility] 20 ng/mL) FORCE VARIATION EQUIPMENT TENDER Fentanyl (cutoff 2 Not Detected 06/15/2020 1:07 PM [facility] ng/mL) FORCE VARIATION EQUIPMENT TENDER Norfentanyl (cutoff 2 Not Detected 06/15/2020 1:07 PM [facility] ng/mL) FORCE VARIATION EQUIPMENT TENDER Meperidine metabolite Not Detected 06/15/2020 1:07 PM [facility] (cutoff 50 ng/mL) FORCE VARIATION EQUIPMENT TENDER Tapentadol (cutoff 100 Not Detected 06/15/2020 1:0 7 PM [facility] ng/mL) FORCE VARIATION EQUIPMENT TENDER Hddleowpil-c-Gzll Not Detected 06/15/2020 1:07 PM [facility] (cutoff 200 ng/mL) FORCE VARIATION EQUIPMENT TENDER Amphetamine (cutoff 50 Not Detected 06/15/2020 1:0 7 PM [facility] ng/mL) FORCE VARIATION EQUIPMENT TENDER Methamphetamine (cutoff Not Detected 06/15/2020 1: 07 PM [facility] 400 ng/mL) FORCE VARIATION EQUIPMENT TENDER MDMA- Ecstasy (cutoff Not Detected 06/15/2020 1:07 PM [facility] 200 ng/mL) FORCE VARIATION EQUIPMENT TENDER MDA (cutoff 200 ng/mL) Not Detected 06/15/2020 1:0 7 PM [facility] FORCE VARIATION EQUIPMENT TENDER MDEA- Vashti (cutoff 200 Not Detected 06/15/2020 1:07 PM [facility] ng/mL) FORCE VARIATION EQUIPMENT TENDER Phentermine (cutoff 100 Not Detected 06/15/2020 1: 07 PM [facility] ng/mL) FORCE VARIATION EQUIPMENT TENDER Methylphenidate (cutoff Not Detected 06/15/2020 1: 07 PM [facility] 100 ng/mL) FORCE VARIATION EQUIPMENT TENDER Alprazolam (cutoff 40 Not Detected 06/15/2020 1:07 PM [facility] ng/mL) FORCE VARIATION EQUIPMENT TENDER Algeh-CN-Yltbrznedk Not Detected 06/15/2020 1:07 P M [facility] (cutoff 20 ng/mL) FORCE VARIATION EQUIPMENT TENDER Clonazepam (cutoff 20 Not Detected 06/15/2020 1:07 PM [facility] ng/mL) FORCE VARIATION EQUIPMENT TENDER 7-Aminoclonazepam Not Detected 06/15/2020 1:07 PM [facility] (cutoff 40 ng/mL) FORCE VARIATION EQUIPMENT TENDER Diazepam (cutoff 50 Not Detected 06/15/2020 1:07 P M [facility] ng/mL) FORCE VARIATION EQUIPMENT TENDER Nordiazepam (cutoff 50 Not Detected 06/15/2020 1:0 7 PM [facility] ng/mL) FORCE VARIATION EQUIPMENT TENDER Oxazepam (cutoff 50 Not Detected 06/15/2020 1:07 P M [facility] ng/mL) FORCE VARIATION EQUIPMENT TENDER Temazepam (cutoff 50 Not Detected 06/15/2020 1:07 PM [facility] ng/mL) FORCE VARIATION EQUIPMENT TENDER Lorazepam (cutoff 60 Not Detected 06/15/2020 1:07 PM [facility] ng/mL) FORCE VARIATION EQUIPMENT TENDER Midazolam (cutoff 20 Not Detected 06/15/2020 1:07 PM [facility] ng/mL) FORCE VARIATION EQUIPMENT TENDER Zolpidem (cutoff 20 Not Detected 06/15/2020 1:07 P M [facility] ng/mL) FORCE VARIATION EQUIPMENT TENDER Creatinine, Urine 52.3 20.0 - 06/15/2020 1:07 PM [facility] 400.0 FORCE VARIATION EQUIPMENT TENDER mg/dL Pain Management Drug See Below 06/15/2020 1:07 PM [facility] Panel FORCE VARIATION EQUIPMENT TENDER Comment: Methodology: Qualitative Enzyme Immunoas say and [...] and its performa nce characteristics determined by [facility]. It has not been cleared or approved by the [place] Food and Drug Adminis tration. This test was performed in a CLIA certified laboratory and is intended for clinical purposes. EER Pain Mgt Drug Chew, Mass See Note 06/15/2020 1 :07 PM FORCE VARIATION EQUIPMENT TENDER [facility] Spec/EMITU Comment: Access [facility] Report using the love nk below: -Direct access: [email or web address] Performed By: [facility] [address] [place] [address] Carpenter Refrigerator: Becca Sher MD Specimen Anatomical Collection Method Collection Time Receive d Time (Source) Location / / Volume Laterality Urine specimen Non-blood 06/10/2020 2:23 PM 020 (specimen) Collection / FORCE VARIATION EQUIPMENT TENDER 10:40 PM FORCE VARIATION EQUIPMENT TENDER Unknown Narrative [facility] - 06/15/2020 1:07 PM FORCE VARIATION EQUIPMENT TENDER ?? Please call [facility] at for Member Of Parliament consultation or assistance with interpre tation if needed. Marivel Cavazos PA-C LAB - URINE ORDERABLES Performing Organization Address City/State/ZIP Code Phon e Number [facility] [employer] [facility] [place], [place] [phone] [address] [facility] [address] [employer] [address] [address] documented in this encounter Visit Diagnoses Diagnosis Chronic pain syndrome Chronic, continuous use of opioids Opioid type dependence, continuous Degeneration of lumbar or lumbosacral in tervertebral disc Lumbar radiculopathy Thoracic or lumbosacral neuritis or radi culitis, unspecified documented in this encounter Care Teams Bander Hand Relationship Specialty Start Date End Date Marlee Coles MD PCP - General 02/10/15 05/18/21 [place] [address] [place] [address] Tony Gray MD Referring Physician Orthopedics 10/01/14 Conner Harper MD MD Orthopedics 10/01/[address] [place], [place] [address] documented as of this encounter
--- OUTSIDE RECORDS SUMMARY | 2022-04-22 09:43 | XMS_ITS | Encounter Summary ---
:1955 Author Organization [place] Address [address] [place] [address] Care Team Providers Name Role Phone Tony Gray MD Unavailable Conner Harper MD Unavailable Marlee Coles MD Primary Care Provider [phone] Reason for Visit Reason Comments Medication Problem Medication Refill Encounter Details Date Type Department Care Team Description 10/23/2018 Communication - [facility] Hawa Jiang Medic ation Problem; [facility] Jessica, passenger booking clerk Refill [address] [facility] [address] [place] [address] Social History Tobacco Use [...] states it isn't as effective. Nurse called [facility] and was told the med is on back order. Pt also states he didn't get Keflex with his other scripts for the SCS Trial. Called [facility] and was told the [facility]. [facility] asked that pt check and if [facility]'t haveit they'll send a new [...] Pain & [place] [address] [place], [place] [address] (Wo rk) documented as of this encounter Visit Diagnoses Diagnosis Chronic pain syndrome documented in this encounter Care Teams Medical Economics Consultant Relationship Specialty Start Date End Date Marlee Coles MD PCP - General 02/10/15 05/18/21 [place] [address] [address] [id number] Tony Gray MD Referring Physician Orthopedics 10/01/14 Conner Harper MD MD Orthopedics 10/01/[address] [place], [place] [id number] documented as of this encounter
--- OUTSIDE RECORDS SUMMARY | 2022-04-22 09:43 | XMS_ITS | Encounter Summary ---
:1955 Author Organization [facility] Address [address] [place] [address] Care Team Providers Name Role Phone Tony Gray MD Unavailable Conner Harper MD Unavailable Marlee Coles MD Primary Care Provider [phone] Reason for Visit Reason Comments Back Pain Encounter Details Date Type Department Care Team Description 02/04/2020 Hospital Encounter [facility] Carol Cavazos radiculopathy; Pain Center Marivel Hernadez PA-C Chronic pain syndrome; [address] [address] [place] Degeneration of lumbar or lumbosacral in tervertebral disc; [address] [place], [place] Opioid type dependence, continuous (H) [address] [address] [place], [place] [phone] (Work) [phone] Social History Tobacco Use Types Packs/Day Years [...] fever/chills, unexplained weight loss. Functional Symptoms: See TMR TEACHER note Adverse effects of medications: Denies constipation, [...] in bilateral legs, was advised by [employer] business services representative that he had settings too high [...] tried inserts in the past from a career counselor which made things worse. Patient saw cardiology [...] now without shortness of breathand not following data software engineer at this time. Thinks it relates back to dust in [place]. He states if he has symptoms recur will return to physician in [place] as he has questions about [place]. He denies sleep study scheduled as no one called to make an appointment. He stopped Ibuprofen as postmaster told him too much risk and replaced [...] it as he didn't get a refill. Jackson more agitated on it and since stopping [...] loss, psychoses, suicidal ideation, substance use/abuse. 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 DATE/TIME: 01/30/2019 9:09 AM ?? [...] needed for itching - refill sent to [facility] Discontinue methocarbamol and trial skelaxin 400 mg for muscle relaxant, may take up to three times a day if tolerated. Side effects reviewed today, monitor for drowsiness. Ok to take 400-800 mg dose at bedtime as needed. Reschedule with Ayse for reprogramming recommendations in March. Discussed updated lumbar MRI/EMGif needed prior to you leaving for [place] if pain continues to be uncontrolled. Follow-up in 8 weeks with Marivel Call Time: 24 minutes Start - 15 Stop - 09 Marivel Cavazos PA-C [facility] [address] [place] [address] atisha Aguilar - 02/04/2020 9:00 AM CDT Tremaine Plunkett [...] would you like to be contacted at? [phone] Patient would like to receive their AVS [...] needed for itching - refill sent to [facility] Discontinue methocarbamol and trial skelaxin 400 mg for muscle relaxant, may take up to three times a day if tolerated. Side effects reviewed today, monitor for drowsiness. Ok to take 400-800 mg dose at bedtime as needed. Reschedule with Ayse for reprogramming recommendations in March. Discussed updated lumbar MRI/EMGif needed prior to you leaving for [place] if pain continues to be uncontrolled. Follow-up in 8 weeks with Marivel Patient Education Metaxalone Oral tablet What is this medicine? [...] are told to take. Talk to your oracle hyperion consultant regarding the use of this medicine in children. Special care may be needed. Overdosage: If you think you have taken too much of this medicine contact a poison control center [facility] room at once. NOTE: This medicine [...] medicine? Check with your doctor or health reproductive healthcare assistant if your condition does not improve within [...] should report to your doctor or health reproductive healthcare assistant as soon as possible: ?? difficulty breathing ?? skin rash ?? unusually weak or tired ?? vomiting ?? swelling of face, lips, or tongue ?? yellow eyes or skin Side effects that usually do not require medical attention (report to your doctor or health reproductive healthcare assistant if they continue or are bothersome): ?? headache ?? irritability ?? nervousness ?? stomach upset This list may not describe all possible side effects. Call your doctor for medical advice about sideeffects. You may report side effects to FDA at 8-851-EQS-2941. Where should I keep my medicine? Keep [...] of Service: 02/04/2020 9:00 AM Status: Signed City Bailiff: Analisa Chi Encounter addended by: Analisa Chi on: 02/06/2020 2:46 PM Actions taken: Charge Capture section accepted documented in this encounter Plan of Treatment Upcoming Encounters Date Type Specialty Care Team Description 04/26/2022 Virtual Visit Pain & [place] [address] [place], [place] [address] (Wo rk) documented as of this encounter Visit Diagnoses Diagnosis Lumbar radiculopathy Thoracic or lumbosacral neuritis or radi culitis, unspecified Chronic pain syndrome Degeneration of lumbar or lumbosacral in tervertebral disc Opioid type dependence, continuous (H) Opioid type dependence, continuous documented in this encounter Care Teams Biology Specialist Relationship Specialty Start Date End Date Marlee Coles MD PCP - General 02/10/15 05/18/21 [place] [address] [address] [id number] Tony Gray MD Referring Physician Orthopedics 10/01/14 Conner Harper MD MD Orthopedics 10/01/14 [address] [facility] [address] [place], [place] [id number] documented as of this encounter
--- OUTSIDE RECORDS SUMMARY | 2022-04-22 09:43 | XMS_ITS | Encounter Summary ---
:1955 Author Organization [place] Address [address] [facility] [place] [address] Care Team Providers Name Role Phone Tony Gray MD Unavailable Conner Harper MD Unavailable Marlee Coles MD Primary Care Provider [phone] Reason for Visit Reason Comments Back Pain Encounter Details Date Type Department Care Team Description 04/01/2020 Hospital Encounter [facility] Dirk Iian id type dependence, continuous (H); Pain Center Marivel Hernadez PA-C Chronic pain syndrome; [address] [facility] [address] Degeneration of lumbar or lumbosacral in tervertebral disc; [address] [place], [place] Lumbar radic ulopathy; 101 [address] Degeneration of thoracic intervertebral disc [place], [place] [phone] (Work) [phone] Social History Tobacco Use Types Packs/Day Years [...] fever/chills, unexplained weight loss. Functional Symptoms: See ACTIVITY DIRECTOR note Adverse effects of medications: Denies [...] feeling to return. He will drive to [place] in 5 days as he needs to take frequent breaks. He states his legs have been worse over past 1.5 months without new injury or fall. We have discussed updating lumbar MRI or EMG for leg symptoms. He states he would not do this until he returns from [place] in the spring as he is leaving tomorrow, only returning briefly around [place]. Sleep study - has not followed through [...] difficulty changing from sitting tostanding position. Opioid [place] Precautions: UDT- 06/13/19, results as expected Consent - 04/01/20 Agreement- 04/01/20 Pharmacy- as documented FINISHED GOODS INSPECTOR- reviewed 04/01/20 as expected Count- n/a Psychological evaluation n/a MME- up to 60 Pharmacogenetic testing n/a DIANE 03/26/19 Imaging: EXAM: XR THORACIC SPINE 2 VWS LOCATION: DATE/TIME: 01/30/2019 9:09 AM ?? INDICATION: lead [...] needed for itching - refill sent to [facility] Continue methocarbamol 1 tab at night as needed, monitor for drowsiness. Saw Ayse today for reprogramming recommendations. Discussed updated lumbar MRI/EMG if needed when you return from [place] if right leg pain continues to be [...] with Marivel in office Marivel Cavazos PA-C [facility] [address] [facility] [place] [address] Latisha Bautista - 04/01/2020 10:00 AM CDT [...] Cavazos PA-C Service: -- Author Type: Physician Franchise Field Consultant Filed: 04/01/2020 10:56 AM Date of Service: 04/01/2020 10:00 AM Status: Addendum Folding Rules Printing Machine Operator: Marivel Cavazos PA-C (Physician Franchise Field Consultant) Related Notes: Original Note by Marivel Cavazos PA-C (Physician Franchise Field Consultant) filed at 04/01/202010:55 AM Continue Vicodin 10/325 [...] for itching - refill sent to [facility] Continue methocarbamol 1 tab at night as needed, monitor for drowsiness. Saw Ayse today for reprogramming recommendations. Discussed updated lumbar MRI/EMG if needed when you return from [place] if right leg pain continues to be [...] in adults and children with epilepsy and Concord-Gastaut syndrome. It is also used in adults [...] information carefully each time. Talk to your computer operations specialist regarding the use of this medicine in children. While this drug may be prescribed for children as young as 2 years for selected conditions, precautions do apply. What side effects may I notice from receiving this medicine? Side effects that you should report to your doctor or health critical care specialist as soon as possible: ?? allergic reactions [...] to your doctor or health critical care specialist if they continue or are bothersome): ?? [...] this medicine? Visit your doctor or health critical care specialist for regular checks on your progress. If you take this medicine for seizures, wear a Medic Alert bracelet or necklace. Carry an identification card with information about your condition, medicines, and doctor or health critical care specialist. It is important to take this medicine exactly as directed. When first starting treatment, your dose will need to be adjusted slowly. It may take weeks or months before your dose is stable. You should contact your doctor or health critical care specialist if your seizures get worse or if you have any new types of seizures. Do not stop taking this medicine unless instructed by your doctor or health critical care specialist. Stopping your medicine suddenly can increase your seizures or their severity. Contact your doctor or health critical care specialist right away if you develop a rash [...] your mood to your doctor or health critical care specialist. If your condition gets worse, you get mentally depressed, feel very hyperactive or manic, have difficulty sleeping, or have thoughts of hurting yourself or committing suicide, you need to get help from your health critical care specialist right away. If you area caregiver for [...] this medicine may enroll in the [place]iepileptic Drug Registry by calling . This [...] Pain & [place] [address] [place], [place] [address] (Wo rk) documented as of this encounter Visit Diagnoses Diagnosis Opioid type dependence, continuous (H) Opioid type dependence, continuous Chronic pain syndrome Degeneration of lumbar or lumbosacral in tervertebral disc Lumbar radiculopathy Thoracic or lumbosacral neuritis or radi culitis, unspecified Degeneration of thoracic intervertebral disc Degeneration of thoracic or thoracolumba r intervertebral disc documented in this encounter Care Teams Practicing Urologist Relationship Specialty Start Date End Date Marlee Coles MD PCP - General 02/10/15 05/18/21 [facility] [place] [address] [address] [place], [place] [address] Tony Gray MD Referring Physician Orthopedics 10/01/14 Conner Harper MD MD Orthopedics 10/01/[address] [place], [place] [id number] documented as of this encounter
--- OUTSIDE RECORDS SUMMARY | 2022-04-22 09:43 | XMS_ITS | Encounter Summary ---
:1955 Author Organization [facility] Address [address] [place] [address] Care Team Providers Name Role Phone Tony Gray MD Unavailable Conner Harper MD Unavailable Marlee Coles MD Primary Care Provider [phone] Reason for Visit Reason Comments Back Pain Encounter Details Date Type Department Care Team Description 10/19/2018 Hospital Encounter [facility] Codie Cavazos [place] pain syndrome; Pain Center Marivel Hernadez PA-C Degeneration of lumbar or lumbosacral in tervertebral disc; [address] [facility] [address] [place] Opioid type dependence, continuous (H); [address] [place], [place] Bilateral linda mbar radiculopathy [address] [address] [place], [place] [phone] (Work) [phone] Social History Tobacco Use Types Packs/Day Years [...] - - Weight 99.8 kg (220 lb) 10/19/2018 11:04 AM CDT Height 170.2 cm (5' 7) 10/19/2018 11:04 AM CDT Body Mass Index 34.46 10/19/2018 11:04 AM CDT documented in this encounter Medications [...] this encounter Progress Notes Historical Provider - 10/19/2018 10:35 AM CDT Pt is here for Follow Up Visit with JANET Perry for back pain. Marivel Cavazos PA-C - 10/19/2018 10:35 AM CDT PAIN CENTER PROGRESS NOTE Subjective: [...] Bilateral lumbar radiculopathy Pain location and description: 6/10 constant sharp, dull, stabbing pain in low back, buttock, and bilateral legs. Function rated 8. At best, pain rated 5/10 and at worst pain rated 10/10 and on averagepain rated 6/10. Radiation of pain: Buttocks bilaterally, [...] Functional Symptoms: Pain interferes with sleep, walking, work, ADLs, relationships/social, sexual health, mood (frustrated, angry). Adverse effects of medications: Denies constipation, [...] medications. Denies any ED/urgent care visits. He was in [place] and was unable to return for a follow-up visit due to weather delay in flights so he has not been seen since 06/07/18. He was given tapering of Vicodin schedule in August as he was unable to return to be seen and could not establish care for this out of state. He states that he had enough medication to stretch until his visit here as most of his time in [place] he could take 4 tabs a day instead of 6-8 as pain was better controlled in warmer weather. He states since being back in [place] past 2 days he needs more pain control took 3 doses yesterday. Reports his pain has not changed. He is scheduled for SCS trial on 10/23/18. He states he went to [employer] while in [place] he tried the recumbent bike and he states he can ride it for 20 minutes. He used the hydrobed 10 minutes every time he was there which felt really good on his back. He states he doesn't have a gym close to his house here. He can also do classes or registered physical therapist with his membership. He is living at his sons during the week in [facility] the weekends in [place]. Vicodin dosing allows pain rating to be [...] psychoses, suicidal ideation, substance use/abuse. Objective: Vitals: 10/19/18 1104 BP: 149/84 Pulse: 62 Resp: 16 Weight: 220 lb (99.8 kg) [...] difficulty rising from a seated position. 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 Assessment: Tremaine Plunkett [...] recommended SCS trial and he has been approved and scheduled next week; he has been given education by nursing staff. If this offers pain relief, will discuss weaning Vicodin. If not, he is interested in medical cannabistrial. He has not had adequate pain control [...] trial would be helpful for pain control. He is usually taking 4 tabs a day in [place], but usually 6 tabs a day in [place]. Discuss to avoid having stockpile will not order more than 6/dayand plan to decreased medication quantity as tolerated. Plan: Continue Vicodin 10/325 mg 1-2 tablet every 4-6 hours as needed for pain. Max 8 tabs in 24 hours. As your opioid dose remains stable, I will send electronic refills to the pharmacy for 2 subsequent months until your next appointment so you do not have to call our refill line. The fill dates for your medications are: 10/19/18 & 11/18/18 Check with your pharmacy that all prescriptions [...] 3 times a day as needed - refill sent. Continue Methocarbamol 500 mg at bedtime as needed - no refill sent. You may continue over the counter ibuprofen with food up to 2400 mg daily or tylenol up to 3,000 mg daily (remember to calculate each Vicodin tablet has 325 mg of tylenol). Sent Ibuprofen 600 mg to P SCS trial next week; follow nurse instructions. Hope it goes well! Follow-up in 8 weeks Marivel Cavazos PA-C [facility] [address] [facility] [place] [address] documented in this encounter Miscellaneous Notes Patient Instructions - HE - Marivel Cavazos PA-C - 10/19/2018 10:35 AM CDT Continue Vicodin 10/325 mg 1-2 tablet every 4-6 hours as needed for pain. Max 8 tabs in 24 hours. As your opioid dose remains stable, I will send electronic refills to the pharmacy for 2 subsequent months until your next appointment so you do not have to call our refill line. The fill dates for your medications are: 10/19/18 & 11/18/18 Check with your pharmacy that all prescriptions [...] 3 times a day as needed - refill sent. Continue Methocarbamol 500 mg at bedtime as needed - no refill sent. You may continue over the counter ibuprofen with food up to 2400 mg daily or tylenol up to 3,000 mg daily (remember to calculate each Vicodin tablet has 325 mg of tylenol). Sent Ibuprofen [address] [facility] SCS trial next week; follow nurse instructions. Hope it goes well! Follow-up in 8 weeks Marivel documented in this encounter Plan of Treatment Upcoming Encounters Date Type Specialty Care Team Description 04/26/2022 Virtual Visit Pain & [place] [address] [place], [place] [address] (Wo rk) documented as of this encounter Visit Diagnoses Diagnosis Chronic pain syndrome Degeneration of lumbar or lumbosacral in tervertebral disc Opioid type dependence, continuous (H) Opioid type dependence, continuous Bilateral lumbar radiculopathy documented in this encounter Care Teams Rehab Aide Relationship Specialty Start Date End Date Marlee Coles MD PCP - General 02/10/15 05/18/21 [place] [address] [address], [place] [address] Tony Gray MD Referring Physician Orthopedics 10/01/14 Conner Harper MD MD Orthopedics 10/01/14 [facility] [facility] [address] [place] [address] documented as of this encounter
--- OUTSIDE RECORDS SUMMARY | 2022-04-22 09:43 | XMS_ITS | Encounter Summary ---
:1955 Author Organization [facility] Address [address] [facility] [place] [address] Care Team Providers Name Role Phone Tony Gray MD Unavailable Conner Harper MD Unavailable Marlee Coles MD Primary Care Provider [phone] Encounter Details Date Type Department Care Team Description 11/29/2018 Hospital Encounter [facility] Hugo Loyola V , [facility] Ce aminata SCOTT [address] [facility] [address] [facility] [address] [place] [address] [place] [address] [phone] Social History Tobacco Use Types Packs/Day Years [...] CDT Operative Note Name: Tremaine Plunkett Location: [facility] Procedure Date: 11/29/2018 PCP: Marlee [...] The epidural space was entered with a deom-ez-uotqpqepfr technique. The first 1X8 Nevro electrode arrays was inserted and directed into the posterior epidural space and advanced up the T8 level. A second #14-gauge epidural needle was inserted and directed to the T12-l1 inter space in the midline. The epidural space was again entered using a pyff-lz-tqnyqxtjoa technique. Thesecond electrode array was inserted and [...] was taken to the recovery room. IPG: [id number] Lead 1: 1058-50B LOT:[id number] Lead 2: 1058-50B LOT:[id number] Estimated Blood Loss: 2 mL from 11/29/2018 7:00 AM to 11/29/2018 9:17 AM Complications: None Hugo Loyola MD Date: 11/29/2018 Time: 9:24 AM documented in this encounter Plan of Treatment Upcoming Encounters Date Type Specialty Care Team Description 04/26/2022 Virtual Visit Pain & [place] [address] [place], [place] [address] (Wo rk) documented as of this encounter Visit Diagnoses Not on filedocumented in this encounter Care Teams Tare Man Relationship Specialty Start Date End Date Marlee Coles MD PCP - General 02/10/15 05/18/21 [place] [address] [address] [place], [place] [address] Tony Gray MD Referring Physician Orthopedics 10/01/14 Conner Harper MD MD Orthopedics 10/01/14 [address] [address] [place], [place] [address] documented as of this encounter
--- OUTSIDE RECORDS SUMMARY | 2022-04-22 09:43 | XMS_ITS | Encounter Summary ---
:1955 Author Organization [facility] Address [address] [facility] [place] [address] Care Team Providers Name Role Phone Tony Gray MD Unavailable Conner Harper MD Unavailable Marlee Coles MD Primary Care Provider [phone] Encounter Details Date Type Department Care Team Description 11/29/2018 Surgery - [facility] Hugo Loyola V [place] [facility] [id number] [place] [address] [phone] [phone] (Work) [phone] Social History Tobacco Use Types Packs/Day Years [...] 6:19 AM CDT documented in this encounter Plan of Treatment Upcoming Encounters Date Type Specialty Care Team Description 04/26/2022 Virtual Visit Pain & [place] [address] [facility] [address] [place], [place] [address] (Wo rk) documented as of this encounter Visit Diagnoses Not on filedocumented in this encounter Care Teams Steel Roller Relationship Specialty Start Date End Date Marlee Coles MD PCP - General 02/10/15 05/18/21 [place] [address] [address] [place], [place] [address] Tony Gray MD Referring Physician Orthopedics 10/01/14 Conner Harper MD MD Orthopedics 10/01/[address] [place] [address] documented as of this encounter
--- OUTSIDE RECORDS SUMMARY | 2022-04-22 09:43 | XMS_ITS | Encounter Summary ---
:1955 Author Organization [place] Address [address] [place] [address] Care Team Providers Name Role Phone Tony Gray MD Unavailable Conner Harper MD Unavailable Marlee Coles MD Primary Care Provider [phone] Encounter Details Date Type Department Care Team Description 03/26/2019 Communication - [facility] Provider, [facility] Historical [address] [facility] [address] [place] [address] Social History Tobacco Use Types Packs/Day Years Used Date Smoking Tobacco: Never Assessed Sex Assigned at Date Recorded Not on file documented as of this encounter Miscellaneous Notes Telephone Encounter - Marivel Cavazos PA-C - 03/27/2019 3:35 PM CDT Received return phone call from [facility] at 1515 today. Created addendum in patient chart from 03/26/19. Telephone Encounter - Marivel Cavazos PA-C - 03/27/2019 2:31 PM CDT Phone call placed to [facility] to discuss patient concerns with SCS and make a plan for Radha. I was forwarded to [facility] which did not identify the marketing analytics analyst, left a generic message for call back this afternoon or tomorrow. Telephone Encounter - Historical Provider - 03/26/2019 4:03 PM CDT Patient left message. Just tell Marivel the name is, Francisco, and phone no. Is [phone]. documented in this encounter Plan of Treatment Upcoming Encounters Date Type Specialty Care Team Description 04/26/2022 Virtual Visit Pain & [place] [address] [place], [place] [address] (Wo rk) documented as of this encounter Visit Diagnoses Not on filedocumented in this encounter Care Teams Veneer Taping Machine Offbearer Relationship Specialty Start Date End Date Marlee Coles MD PCP - General 02/10/15 05/18/21 [place] [address] [place], [place] [address] Tony Gray MD Referring Physician Orthopedics 10/01/14 Conner Harper MD MD Orthopedics 10/01/14 [address] [place], [place] [address] documented as of this encounter
--- OUTSIDE RECORDS SUMMARY | 2022-04-22 09:43 | XMS_ITS | Encounter Summary ---
:1955 Author Organization [place] Address [address] [place] [address] Care Team Providers Name Role Phone Tony Gray MD Unavailable Conner Harper MD Unavailable Marlee Coles MD Primary Care Provider [phone] Encounter Details Date Type Department Care Team Description 11/28/2018 Anesthesia - [facility] Surgery MD [facility] [address] [place] [address] Social History Tobacco Use Types Packs/Day Years Used Date Smoking Tobacco: Never Assessed Sex Assigned at Date Recorded Not on file documented as of this encounter OR Notes Anesthesia Postprocedure Evaluation - Mookie Callaway - 11/29/2018 2:08 PM CDT Patient: Tremaine Plunkett RIGHT FLANK INCISION INSERTION SPINAL CORD STIMULATOR, INSERTION OF STIMULATOR ELECTRODES X2 Anesthesia type: MAC Patient location: Phase II Recovery Last vitals: Vitals Value Taken Time BP 135/65 11/29/2018 9:57 AM Temp 36.4 ??C (97.5 ??F) 11/29/2018 9:19 AM Pulse 56 11/29/2018 10:00 AM Resp 16 11/29/2018 9:30 AM SpO2 97 % 11/29/2018 10:00 AM Vitals shown include unvalidated device data. Post vital signs: stable Level of consciousness: awake and responds to simple questions Post-anesthesia pain: pain controlled Post-anesthesia nausea and vomiting: no Pulmonary: unassisted, return to baseline Cardiovascular: stable and blood pressure at baseline Hydration: adequate Anesthetic events: no QCDR Measures: ASA# 11 - Marlin-op Cardiac Arrest: ASA11B - Patient did NOT experience unanticipated cardiac arrest ASA# 12 - Marlin-op Mortality Rate: ASA12B - Patient did NOT ASA# 13 - PACU Re-Intubation Rate: ASA13B - Patient did NOT require a new airway mgmt ASA# 10 - Composite Anes Safety: ASA10A - No serious adverse event Additional Notes: Anesthesia Preprocedure Evaluation - Mookie Callaway - 11/29/2018 6:29 AM CDT Anesthesia Evaluation Patient summary reviewed No history of anesthetic complications Airway Mallampati: II Pulmonary - negative ROS and normal exam Cardiovascular - negative ROS and normal exam Exercise tolerance: > or = 4 METS ECG reviewed (SB) Rhythm: regular Rate: normal, Neuro/Psych Endo/Other (+) obesity, GI/Hepatic/Renal - negative ROS Other findings: K=4.6 Hgb=14.4 Dental - normal exam Anesthesia Plan Planned anesthetic: MAC Versed/fent (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 - he can't remember if or when he had a reaction to fentanyl) propofol ggt Decadron/zofran ASA 2 Induction: intravenous Anesthetic plan and risks discussed with: patient Post-op plan: routine recovery documented in this encounter Miscellaneous Notes Anesthesia Care Transfer Note - Danielle Monson - 11/29/2018 9:20 AM CDT Last vitals: Vitals: 11/29/18 0919 BP: 133/66 Pulse: 60 Resp: 18 Temp: 36.4 ??C (97.5 ??F) SpO2: 94% Patient's level of consciousness is drowsy Spontaneous respirations: yes Maintains airway independently: yes Dentition unchanged: yes Oropharynx: oropharynx clear of all foreign objects QCDR Measures: ASA# 20 - Surgical Safety Checklist: WHO surgical safety checklist completed prior to induction PQRS# 430 - Adult PONV Prevention: 4558F - Pt received => 2 anti-emetic agents (different classes) preop & intraop ASA# 8 - Peds PONV Prevention: NA - Not pediatric patient, not GA or 2 or more risk factors NOT present PQRS# 424 - Marlin-op Temp Management: 4559F - At least one body temp DOCUMENTED => 35.5C or 95.9F within required timeframe PQRS# 426 - PACU Transfer Protocol:G9655 - Transfer of care checklist used ASA# 14 - Acute Post-op Pain: ASA14B - Patient did NOT experience pain >= 7 out of 10 documented in this encounter Plan of Treatment Upcoming Encounters Date Type Specialty Care Team Description 04/26/2022 Virtual Visit Pain & [place] [address] [place], [place] [address] (Wo rk) documented as of this encounter Visit Diagnoses Not on filedocumented in this encounter Care Teams Fighter Pilot Relationship Specialty Start Date End Date Marlee Coles MD PCP - General 02/10/15 05/18/21 [place] [address] [place] [address] Tony Gray MD Referring Physician Orthopedics 10/01/14 Conner Harper MD MD Orthopedics 10/01/[address] [place], [place] [address] documented as of this encounter
--- OUTSIDE RECORDS SUMMARY | 2022-04-22 09:43 | XMS_ITS | Encounter Summary ---
:1955 Author Organization [place] Address [address] [facility] [place] [address] Care Team Providers Name Role Phone Tony Gray MD Unavailable Conner Harper MD Unavailable Marlee Coles MD Primary Care Provider [phone] Encounter Details Date Type Department Care Team Description 10/19/2018 [facility] Sharona Leach, [facility] RN [address] [facility] [address] [place] [address] Social History Tobacco Use Types [...] Pain & [place] [address] [place], [place] [address] (Wo rk) documented as of this encounter Visit Diagnoses Not on filedocumented in this encounter Care Teams Sack Cleaner Relationship Specialty Start Date End Date Marlee Coles MD PCP - General 02/10/15 05/18/21 [place] [address] [address] [id number] Tony Gray MD Referring Physician Orthopedics 10/01/14 Conner Harper MD MD Orthopedics 10/01/[address] [place], [place] [id number] documented as of this encounter
--- OUTSIDE RECORDS SUMMARY | 2022-04-22 09:43 | XMS_ITS | Encounter Summary ---
:1955 Author Organization [place] Address [address] [facility] [place] [address] Care Team Providers Name Role Phone Tony Gray MD Unavailable Conner Harper MD Unavailable Marlee Coles MD Primary Care Provider [phone] Encounter Details Date Type Department Care Team Description 01/30/2019 Hospital Encounter [facility] Marivel Cavazos Chronic pain [facility] B, PA-C syndrome Diagnostic Imaging [address] [place] [address] [phone] Social History Tobacco Use Types Packs/Day Years [...] Pain & [place] [address] [place], [place] [address] (Wo rk) documented as [...] [facility] DATE/TIME: 01/30/2019 9:09 AM INDICATION: lead [...] [facility] DATE/TIME: 01/30/2019 9:09 AM INDICATION: lead [...] syndrome documented in this encounter Care Teams Breastfeeding Peer Counselor Relationship Specialty Start Date End Date Marlee Coles MD PCP - General 02/10/15 05/18/21 [place] [address] [address] [place], [place] [address] Tony Gray MD Referring Physician Orthopedics 10/01/14 Conner Harper MD MD Orthopedics 10/01/14 [facility] [id number] [place], [place] [address] documented as of this encounter
--- OUTSIDE RECORDS SUMMARY | 2022-04-22 09:43 | XMS_ITS | Encounter Summary ---
:1955 Author Organization [place] Address [address] [place] [address] Care Team Providers Name Role Phone Tony Gray MD Unavailable Conner Harper MD Unavailable Marlee Coles MD Primary Care Provider Encounter Details Date Type Department Care Team Description 12/06/2018 Hospital Encounter [facility] Carol Loyola mi radiculopathy Pain Center Hugo Aguirre MD [address] [facility] [address] [facility] [address] [place] [address] [phone] Social History Tobacco Use Types Packs/Day Years [...] and intact x2, patient is afebrile. [employer] sales representative here to initiate stimulation and patient [...] arm positioning during the surgery. The [employer] telecommunications sales representative was here and he turned on [...] Pain & [place] [address] [place], [place] [address] (Wo rk) documented as of this encounter Visit Diagnoses Diagnosis Lumbar radiculopathy Thoracic or lumbosacral neuritis or radi culitis, unspecified documented in this encounter Care Teams Cream Tester Relationship Specialty Start Date End Date Marlee Coles MD PCP - General 02/10/15 05/18/21 [facility] [place] [address] [address] [place] [address] Tony Gray MD Referring Physician Orthopedics 10/01/14 Conner Harper MD MD Orthopedics 10/01/14 [facility] [place], [place] [address] [place] [address] documented as of this encounter
--- OUTSIDE RECORDS SUMMARY | 2022-04-22 09:43 | XMS_ITS | Encounter Summary ---
:1955 Author Organization [place] Address [address] [facility] [place] [address] Care Team Providers Name Role Phone Tony Gray MD Unavailable Conner Harper MD Unavailable Marlee Coles MD Primary Care Provider [phone] Reason for Visit Reason Comments Follow Up Encounter Details Date Type Department Care Team Description 03/26/2019 Hospital Encounter [facility] Codie Cavazos [place] pain syndrome; Pain Center Marivel Hernadez PA-C Degeneration of lumbar or lumbosacral in tervertebral disc; [address] [facility] [address] Lumbar radiculopathy; [place] [address] [place], [place] Degeneration of thoracic intervertebral disc; [phone] Chronic, continuous use of opioids [place], [place] [phone] [address] (Work) [phone] Social History Tobacco Use Types Packs/Day Years [...] states he received cell phone # from collections representative and that he didn't hear back [...] started taking.He still plans to reside in [place] for winter months leaving later this week. He is aware that [employer] has some reps in [place], [place] which is a few hours from [...] difficulty rising from a seated position. Opioid Lane Precautions: UDS/Swab- 06/07/18, results as expected Consent - 12/13/18 Agreement- 12/13/18 Pharmacy- as documented NAPRAPATH- reviewed 03/26/19 as expected Count- n/a Psychological evaluation n/a MME- 60 Pharmacogenetic testing n/a DIANE Score: 66 03/26/19 Imaging: EXAM: XR THORACIC SPINE 2 VWS LOCATION: [facility] DATE/TIME: 01/30/2019 9:09 AM ?? INDICATION: [...] is advised to schedule reprogramming again with [facility] for reprogramming. If this isn't successful, will [...] I was able to speak with Francisco from [employer] on 03/27/19 at 1515 to discuss patient concerns. He has a call log and reports only calls he received was for date of service 01/30/19 and then on 02/27/19 which was returned. He states he does have a colleague, Cely, in [facility] and could reach out to her if [...] for postoperative pain. Please call me with [facility] name/cell phone # given so we can contact and figure out the plan for reprogramming and contact in [place]. Follow-up in 8 weeks Marivel Cavzaos PA-C [facility] [address] [facility] [place] [address] documented in this encounter Miscellaneous Notes Patient [...] the plan for reprogramming and contact in [place]. Follow-up in 8 weeks Marivel documented in this encounter Plan of Treatment Upcoming Encounters Date Type Specialty Care Team Description 04/26/2022 Virtual Visit Pain & [place] [address] [facility] [address] [place], [place] [address] (Wo rk) documented as of this encounter Visit Diagnoses Diagnosis Chronic pain syndrome Degeneration of lumbar or lumbosacral in tervertebral disc Lumbar radiculopathy Thoracic or lumbosacral neuritis or radi culitis, unspecified Degeneration of thoracic intervertebral disc Degeneration of thoracic or thoracolumba r intervertebral disc Chronic, continuous use of opioids Opioid type dependence, continuous documented in this encounter Care Teams Table Setter Relationship Specialty Start Date End Date Marlee Coles MD PCP - General 02/10/15 05/18/21 [place] [address] [address] [place] [address] Tony Gray MD Referring Physician Orthopedics 10/01/14 Conner Harper MD MD Orthopedics 10/01/[address] [place], [place] [address] documented as of this encounter
--- OUTSIDE RECORDS SUMMARY | 2022-04-22 09:43 | XMS_ITS | Encounter Summary ---
:1955 Author Organization [place] Address [address] [facility] [place] [place] [address] Care Team Providers Name Role Phone Tony Gray MD Unavailable Conner Harper MD Unavailable Marlee Coles MD Primary Care Provider [phone] Reason for Visit Reason Comments Back Pain Encounter Details Date Type Department Care Team Description 10/23/2018 Hospital Encounter [facility] Carol Loyola radiculopathy Pain Center Hugo Aguirre MD [address] [facility] [address] [facility] [address] [place] [address] [phone] Social History Tobacco Use Types Packs/Day Years [...] - - Weight 102.1 kg (225 lb) 10/23/2018 7:10 AM CDT Height 170.2 cm (5' 7) 10/23/2018 7:10 AM CDT Body Mass Index 35.24 10/23/2018 7:10 AM CDT documented in this encounter Medications [...] documented as of this encounter Progress Notes Hawa Jiang - 10/23/2018 6:54 AM CDT Pt scheduled for SCS Trial with [employer] today for LBP and intermittent leg pain to feet. documented in this encounter Miscellaneous Notes Patient Instructions - HE - Hawa Jiang - 10/23/2018 6:54 AM CDT POST PROCEDURE INSTRUCTIONS PAIN CENTER PROCEDURE DONE TODAY: SPINAL CORD STIMULATOR TRIAL Rest today. Patient demonstrates the ability to ambulate independently with a steady gait at the time of discharge. ?? It is not unusual to have a Temporary increase in your pain after a procedure. You can use ice tothe area but do not get the dressing or equipment wet- sponge baths only during the trial period. ?? Reinforce the dressing as needed but do not remove it. ?? Do not bend or twist at the waist, reach over your head or lift greater than 5 pounds. ?? There will be a mid-trial appointment with the [employer] system; with [employer] system it will be as needed. You did not receive a steroid. ?? Do not drive with stimulator on with the [employer] system; ok to drive with the [employer] system turned on. ?? Take your antibiotic as directed. Call if temp is 100 or greater, and/or for redness/warmth/swelling or increased drainage. ?? The sales representative meats will be in daily contact with you throughout the trial period. Adjustments maybe made to the stimulator over the phone. ?? Monitor you response to the injection and report this at your next appointment. ?? CALL IF ANY QUESTIONS [phone] documented in this encounter Plan of Treatment Upcoming Encounters Date Type Specialty Care Team Description 04/26/2022 Virtual Visit Pain & [place] [address] [place], [place] [address] (Wo rk) documented as of this encounter Procedures Procedure Name Priority Date/Time Associated Diagnosis Comme nts PAIN EPIDURAL Routine 10/23/2018 8:47 AM Lumbar radiculopathy Results for this IMPLANT NEUROSTIM 2 CDT procedur e are in LEADS the results section. documented in this encounter Results PAIN Epidural Implant Neurostim 2 Leads (10/23/2018 8:47 AM CDT) Anatomical Region Laterality Modality PAIN/SPINE Radiographic Imaging Specimen (Source) Anatomical Location Collection Method / Collectio n Time Received Time / Laterality Volume Narrative 10/23/2018 10:08 AM CDT SPINAL CORD STIMULATOR TRIAL WITH FLUOROSCOPIC GUIDANCE Performed on: 10/23/2018 Mr. Plunkett is a 63-year-old man with jodi k pain and bilateral leg pain. ??He has tried extensive conservative therapy. ??He is felt not to be a surgical candidate. ??He is here today for trial of spinal cord stimulation. Pre Procedure Diagnosis: ??Lumbar Radicu lopathy Vital Signs: ??As per intra-procedure do cumentation The procedure was discussed with Tremaine Plunkett in detail along with the attendant risks, including but not limited to: nerve injury, infection, bleeding, allergic reaction, or worsening of pain. ??Inf ormed consent was obtained and patient e lected to proceed. Procedure: 1.) ??Insertion of 2 spinal cord stimula tor epidural electrode arrays The procedure was discussed in detail in the clinic. ??The risks and benefits were discussed, including but not limited to bleeding, infection, nerve injury and increased pain. ??Questions were answered. ??The consent was signed in the pre-op area. The patient was placed prone on the x-ra y table. ??The lumbar area was prepped sterily and draped. ??The pause for the cause was done. ??The patient received 2 gram of ??Ancef IV. The first [employer] #14-gauge epidural needl e was inserted to the right of midline and advanced to the T11-T12 interspace. ??The epidural space was entered with a [id number]-[id number] technique. ??The first 1 X8 [employer] electrode array inserted and di rected into the posterior epidural space and advance d up to the T-8 level. ??A second #14- gauge epidural needle was inserted to the ??right ??of midline and directed to the T12-L1 interspace on the right. ??The epidural space was again entered using a jpwi-dx-gltzyzrins technique. ??The seco nd electrode array was inserted and directed into the posterior epidural space up to the T-9 level. ??The positioning of the leads were then verified on AP and la teral fluoroscopy. ?? The leads were the n taped in place. ??AP and lateral fluoroscopic vie ws were taken for the permanent record. ??The patient was then taken to the recovery area. ??The stimulator was then programmed by the [employer] sales representative meats. ??The patient will return in 1 week for remov al of the leads or return sooner if there are any proble ms or adjustments to be made to the stimulator. Components used: Lead 1: ??[id number] ??[place]. [id number] Lead 2: ??[id number] ??Lot No ??[id number] The patient tolerated the procedure well . ??The patient was taken to the recovery area after the procedure. ??There were no complications. ?? Pre Procedure Pain Scale: 7 Pain Score: ?? 7 If Tremaine Plunkett has any questions or concerns after discharge, he was instructed to call us. Procedure Note Hugo Loyola MD - 01/01/2021Format ting of this note might be different from the original. SPINAL CORD STIMULATOR TRIAL WITH FLUORO SCOPIC GUIDANCE Performed on: 10/23/2018 Mr. Plunkett is a 63-year-old man with jodi k pain and bilateral leg pain. He has tried extensive conservative therapy. He is felt not to be a surgical candidate. He is here today for trial of spinal cord stimulation. Pre Procedure Diagnosis: Lumbar Radiculo vamsi Vital Signs: As per intra-procedure docu mentation The procedure was discussed with Tremaine Plunkett in detail along with the attendant risks, including but not limited to: nerve injury, infection, bleeding, allergic reaction, or worsening of pain. Informed consent was obtained and patient elected to proceed. Procedure: 1.) Insertion of 2 spinal cord stimulato r epidural electrode arrays The procedure was discussed in detail in the clinic. The risks and benefits were discussed, including but not limited to bleeding, infection, nerve injury and increased pain. Questions were answered. The consent was signed in the pre-op area. The patient was placed prone on the x-ra y table. The lumbar area was prepped sterily and draped. The pause for the cause was done. The patient received 2 gram of Ancef IV. The first [employer] #14-gauge epidural needl e was inserted to the right of midline and advanced to the T11-T12 interspace. The epidural space was entered with a [id number] technique. The first 1X8 [employer] electrode array inserted and directed into the posterior epidural space and advance d up to the T-8 level. A second #14- gauge epidural needle was inserted to the right of midline and directed to the T12-L1 interspace on the right. The epidural space was again entered using a [id number]-[id number] technique. The second electrode array was inserted and directed into the posterior epidural space up to the T-9 level. The positioning of the leads were then verified on AP and lateral fluoroscopy. The leads were then taped in place. AP and lateral fluoroscopic views were taken for the permanent record. The patient was then taken to the recovery area. The stimulator was then programmed by the [employer] sales representative meats. The patient will return in 1 week for removal of the leads or return sooner if there are any proble ms or adjustments to be made to the stimulator. Components used: Lead 1: [id number] Lot No. [id number] Lead 2: [id number] Lot No [id number] The patient tolerated the procedure well . The patient was taken to the recovery area after the procedure. There were no complications. Pre Procedure Pain Scale: 7 Pain Score: 7 If Tremaine Plunkett has any questions or concerns after discharge, he was instructed to call us. Hugo Aguirre MD IMG PAIN MANAGEMENT ORDERABL ES documented in this encounter Visit Diagnoses Diagnosis Lumbar radiculopathy Thoracic or lumbosacral neuritis or radi culitis, unspecified documented in this encounter Care Teams Hat Trimmer Relationship Specialty Start Date End Date Marlee Coles MD PCP - General 02/10/15 05/18/21 [place] [address] [address] [place] [address] Tony Gray MD Referring Physician Orthopedics 10/01/14 Conner Harper MD MD Orthopedics 10/01/14 [address] [facility] [address] [place], [place] [address] documented as of this encounter
--- OUTSIDE RECORDS SUMMARY | 2022-04-22 09:43 | XMS_ITS | Encounter Summary ---
:1955 Author Organization [place] Address [address] [place] [address] Care Team Providers Name Role Phone Tony Gray MD Unavailable Conner Harper MD Unavailable Marlee Coles MD Primary Care Provider [phone] Encounter Details Date Type Department Care Team Description 11/28/2018 Surgery - [facility] Hugo Loyola [facility] MD [address] [facility] [address] [facility] [address] [place] [address] Social History Tobacco Use Types Packs/Day Years Used Date Smoking Tobacco: Never Assessed Sex Assigned at Date Recorded Not on file documented as of this encounter Plan of Treatment Upcoming Encounters Date Type Specialty Care Team Description 04/26/2022 Virtual Visit Pain & [place] [address] [place], [place] [address] (Wo rk) documented as of this encounter Visit Diagnoses Not on filedocumented in this encounter Care Teams Chlorination Operator Relationship Specialty Start Date End Date Marlee Coles MD PCP - General 02/10/15 05/18/21 [place] [address] [address] [address] Tony Gray MD Referring Physician Orthopedics 10/01/14 Conner Harper MD MD Orthopedics 10/01/[address] [place] [address] documented as of this encounter
--- OUTSIDE RECORDS SUMMARY | 2022-04-22 09:43 | XMS_ITS | Encounter Summary ---
:1955 Author Organization [place] Address [address] [facility] [place] [address] Care Team Providers Name Role Phone Tony Gray MD Unavailable Conner Harper MD Unavailable Marlee Coles MD Primary Care Provider Encounter Details Date Type Department Care Team Description 03/16/2020 Records - [facility] [address] [place] [address] [id number] [place] [address] [phone] (Wo rk) Social History Tobacco Use Types Packs/Day Years Used Date Smoking Tobacco: Never Assessed Sex Assigned at Date Recorded Not on file documented as of this encounter Plan of Treatment Upcoming Encounters Date Type Specialty Care Team Description 04/26/2022 Virtual Visit Pain & [place] [address] [place], [place] [address] (Wo rk) documented as [...] Component Value Ref Test Analysis Performed At [facility] Range Method Time Signature Culture No Growth 03/19/2020 HEALTH 3:27 PM CDT [facility] Gram Stain 1+ Polymorphonuclear 03/19/2020 HEALT H Result leukocytes 3:27 PM CDT [facility] Gram Stain No organisms seen 03/19/2020 HEALTH Result 3:27 PM CDT [facility] Specimen Anatomical Collection Method Collection Time Receive d Time (Source) Location / / Volume Laterality Body fluid BODY FLUID Non-blood 03/16/2020 10:30 03/16/2020 3:07 specimen SPECIMEN / Unknown Collection / AM CDT PM CDT (specimen) Unknown Tony Gray MD LAB - MICRO GENERAL ORDERABL ES Performing Organization Address City/[facility] [place] [address] [address] [facility] Anaerobic Bacterial Culture Routine (03/16/2020 10:30 AM CDT) [facility] Method Time Signature Culture No anaerobic 03/19/2020 [facility] organisms 7:26 AM CDT [facility] Specimen Anatomical Collection Method Collection Time Receive d Time (Source) Location / / Volume Laterality Body fluid BODY FLUID Non-blood 03/16/2020 10:30 03/16/2020 3:07 specimen SPECIMEN / Unknown Collection / AM CDT PM CDT (specimen) Unknown Tony Gray MD LAB - MICRO GENERAL ORDERABL ES Performing Organization Address City/[facility] [place] [address] [place] [address] [place] [address] [facility] (ABNORMAL) Cell count with differential fluid (03/16/2020 10:30 AM CDT) [facility] Method Time Signature Color Cartwright 03/16/2020 HEALTH 5:28 PM CDT [facility] Clarity Hazy 03/16/2020 HEALTH 5:28 PM CDT [facility] Total Nucleated 277 (H) 0 - 99 /uL 03/16/2020 HEALTH Cells 5:28 PM CDT [facility] RBC, Fluid <50,000 <50,000 03/16/2020 HEALTH /ul 5:28 PM CDT [facility] % Neutrophils 28 (H) <=25 % 03/16/2020 HEALTH 5:28 PM CDT [facility] % Lymphocytes 68 <=78 % 03/16/2020 HEALTH 5:28 PM CDT [facility] Monocyte % 4 <=71 % 03/16/2020 HEALTH 5:28 PM CDT [facility] Macrophage % 03/16/2020 HEALTH 5:28 PM CDT [facility] Mesothelials, 03/16/2020 HEALTH Fluid 5:28 PM CDT [facility] % Eosinophils 03/16/2020 HEALTH 5:28 PM CDT [facility] % Other Cells 03/16/2020 HEALTH 5:28 PM CDT [facility] Specimen Anatomical Collection Method Collection Time Receive d Time (Source) Location / / Volume Laterality Body fluid BODY FLUID Non-blood 03/16/2020 10:30 03/16/2020 3:07 specimen SPECIMEN / Unknown Collection / AM CDT PM CDT (specimen) Unknown Tony Gray MD LAB - BODY FLUIDS ORDERABLES Performing Organization Address City/State/ZIP Code Phon [place] [address] [address] [facility] documented in this encounter Visit Diagnoses Not on filedocumented in this encounter Care Teams Tunnel Kiln Operator Relationship Specialty Start Date End Date Marlee Coles MD PCP - General 02/10/15 05/18/21 [place] [address] [place] [address] Tony Gray MD Referring Physician Orthopedics 10/01/14 Conner Harper MD MD Orthopedics 10/01/[address] [place] [address] documented as of this encounter
--- OUTSIDE RECORDS SUMMARY | 2022-04-22 09:43 | XMS_ITS | Encounter Summary ---
:1955 Author Organization [place] Address [address] [facility] [place] [address] Care Team Providers Name Role Phone Tony Gray MD Unavailable Conner Harper MD Unavailable Marlee Coles MD Primary Care Provider Encounter Details Date Type Department Care Team Description 10/22/2018 [facility] Sharona Leach, [facility] Pain Center RN [address] [facility] [address] [place] [address] Social History Tobacco Use Types Packs/Day Years Used Date Smoking Tobacco: Never Assessed Sex Assigned at Date Recorded Not on file documented as of this encounter Plan of Treatment Upcoming Encounters Date Type Specialty Care Team Description 04/26/2022 Virtual Visit Pain & [place] [address] [place], [place] [address] (Wo rk) documented as of this encounter Visit Diagnoses Not on filedocumented in this encounter Care Teams Head Of Design Relationship Specialty Start Date End Date Marlee Coles MD PCP - General 02/10/15 05/18/21 [place] [address] [address] [place], [place] [id number] Tony Gray MD Referring Physician Orthopedics 10/01/14 Conner Harper MD MD Orthopedics 10/01/14 [facility] [address] documented as of this encounter
--- OUTSIDE RECORDS SUMMARY | 2022-04-22 09:43 | XMS_ITS | Encounter Summary ---
:1955 Author Organization [place] Address [address] [facility] [place] [address] Care Team Providers Name Role Phone Tony Gray MD Unavailable Conner Harper MD Unavailable Marlee Coles MD Primary Care Provider [phone] Encounter Details Date Type Department Care Team Description 01/30/2019 Hospital Encounter [facility] Carol Loyola ia radiculopathy Pain Center Hugo Aguirre MD [address] [facility] [address] [facility] [address] [place] [address] [phone] Social History Tobacco Use Types Packs/Day Years [...] positioning of the stimulator electrodes. The KRISTOPHER lead customer service representative was here and interrogated in the [...] for reprogramming of your SCS with Kristopher lead customer service representative. Dr. Loyola reviewed your xrays with you and the SCS. Please contact Kristopher with any further concerns or questions regarding the SCS programming documented in this encounter Plan of Treatment Upcoming Encounters Date Type Specialty Care Team Description 04/26/2022 Virtual Visit Pain & [place] [address] [place], [place] [address] (Wo rk) documented as of this encounter Visit Diagnoses Diagnosis Lumbar radiculopathy Thoracic or lumbosacral neuritis or radi culitis, unspecified documented in this encounter Care Teams Transcription Manager Relationship Specialty Start Date End Date Marlee Coles MD PCP - General 02/10/15 05/18/21 [place] [address] [address] [address] Tony Gray MD Referring Physician Orthopedics 10/01/14 Conner Harper MD MD Orthopedics 10/01/[address] [place], [place] [address] documented as of this encounter
--- OUTSIDE RECORDS SUMMARY | 2022-04-22 09:43 | XMS_ITS | Encounter Summary ---
:1955 Author Organization [place] Address [address] [facility] [place] [address] Care Team Providers Name Role Phone Tony Gray MD Unavailable Conner Harper MD Unavailable Marlee Coles MD Primary Care Provider [phone] Reason for Visit Reason Comments Medication Refill Encounter Details Date Type Department Care Team Description 06/14/2019 Communication - [facility] Brigid Norman ti Refill [facility] Jessica, RN [address] [facility] [address] [place] [address] Social History Tobacco Use Types [...] 2400 mg/day). Pharmacy cued: [facility] documented in this encounter Plan of Treatment Upcoming Encounters Date Type Specialty Care Team Description 04/26/2022 Virtual Visit Pain & [place] [address] [place], [place] [address] (Wo rk) documented as of this encounter Visit Diagnoses Diagnosis Chronic pain syndrome documented in this encounter Care Teams Forestry Extension Specialist Relationship Specialty Start Date End Date Marlee Coles MD PCP - General 02/10/15 05/18/21 [place] [address] [address] [place], [place] [address] Tony Gray MD Referring Physician Orthopedics 10/01/14 Conner Harper MD MD Orthopedics 10/01/14 [address] [facility] [address] [place], [place] [address] documented as of this encounter
--- OUTSIDE RECORDS SUMMARY | 2022-04-22 09:43 | XMS_ITS | Encounter Summary ---
:1955 Author Organization [place] Address [address] [facility] [place] [address] Care Team Providers Name Role Phone Tony Gray MD Unavailable Conner Harper MD Unavailable Marlee Coles MD Primary Care Provider Encounter Details Date Type Department Care Team Description 10/30/2018 Hospital Encounter [facility] Carol Loyola de radiculopathy Pain Center Hugo Aguirre MD [address] [facility] [address] [facility] [address] [place] [address] [phone] Social History Tobacco Use Types Packs/Day Years [...] - - Weight 102.1 kg (225 lb) 10/30/2018 9:13 AM CDT Height 170.2 cm (5' 7) 10/30/2018 9:13 AM CDT Body Mass Index 35.24 10/30/2018 9:13 AM CDT documented in this encounter Medications [...] this encounter Progress Notes Anjali Naylor - 10/30/2018 9:01 AM CDT In clinic today for SCS trial lead removal. States 75% relief of pain in vack and legs. He is very happy with results. Dressing clean and dry without any signs or symptoms of problems or concerns Hugo Loyola MD - 10/30/2018 9:01 AM CDT Spinal Cord Stimulator Trial Follow-up 10.30.2018 Mr. Plunkett has low back pain that [...] long and short acting narcotics withoutsignificant relief. 1 week ago we placed 2 spinal cord stimulator leads. Over the last week he has noticed at least a 75% decrease of his low back pain and almost complete relief of the leg symptoms. He was able to walk significantly farther without having any leg pain. He did have some discomfort at the needle puncture site. He is very pleased with the results and looks forward to having the permanent implant. The patient was seated on the examination table. The tape was removed from the back. The leads were removed intact. The needle puncture sites were clean with no redness, swelling, bleeding or discharge. The area was cleansed with alcohol. A Band-Aid was placed. We will send the information to his insurance and get approval for the permanent implant. He will get a preop history and physical for the surgery. He was given instructions for preparation for the surgery. Upon receiving the insurance approval we will schedule him for the implant at the surgery center. documented in this encounter Miscellaneous Notes Patient Instructions - HE - Anjali Naylor - 10/30/2018 9:01 AM CDT You had the trial leads removed today with Dr. Loyola As well as being seen with Ayse suarez You will be contacted by a Nurse from the clinic to schedule Addendum Note - Hawa Jiang RN - 10/30/2018 9:01 AM CDT Addendum Note by Hawa Jiang RN at 10/30/2018 9:01 AM Author: Hawa Jiang RN Service: -- Author Type: Registered Nurse Filed: 10/30/2018 10:42 AM Date of Service: 10/30/2018 9:01 AM Status: Signed Automotive Service Cashier: Hawa Jiang RN (Registered Nurse) Encounter addended by: Hawa Jiang RN on: 10/30/2018 10:42 AM Actions taken: Order list changed, Diagnosis association updated documented in this encounter Plan of Treatment Upcoming Encounters Date Type Specialty Care Team Description 04/26/2022 Virtual Visit Pain & [place] [address] [place], [place] [address] (Wo rk) documented as of this encounter Visit Diagnoses Diagnosis Lumbar radiculopathy Thoracic or lumbosacral neuritis or radi culitis, unspecified documented in this encounter Care Teams Steward/Stewardess Third Relationship Specialty Start Date End Date Marlee Coles MD PCP - General 02/10/15 05/18/21 [facility] [place] [address] [address] [address] Tony Gray MD Referring Physician Orthopedics 10/01/14 Conner Harper MD MD Orthopedics 10/01/[address] [place], [place] [address] [place] [address] documented as of this encounter
--- OUTSIDE RECORDS SUMMARY | 2022-04-22 09:43 | XMS_ITS | Encounter Summary ---
:1955 Author Organization [place] Address [address] [facility] [place] [address] Care Team Providers Name Role Phone Tony Gray MD Unavailable Conner Harper MD Unavailable Marlee Coles MD Primary Care Provider [phone] Reason for Visit Reason Comments Other SCS Trial Instructions Encounter Details Date Type Department Care Team Description 10/11/2018 Communication - [facility] Hawa Jiang Other (SCS Trial [facility] A, RN Instructions) [address] [facility] [address] [place] [address] Social History Tobacco Use Types Packs/Day Years Used Date Smoking Tobacco: Never Assessed Sex Assigned at Date Recorded Not on file documented as of this encounter Miscellaneous Notes Telephone Encounter - Hawa Jiang - 10/11/2018 10:26 AM CDT Call to pt to review SCS Trial procedure, meds, 0700 arrival time and to bring a special client bus driver who can be available for instruction [...] to Dr Loyola to be filled at [facility]. documented in this encounter Plan of Treatment Upcoming Encounters Date Type Specialty Care Team Description 04/26/2022 Virtual Visit Pain & [place] [address] [place], [place] [address] (Wo rk) documented as of this encounter Visit Diagnoses Diagnosis Lumbar radiculopathy Thoracic or lumbosacral neuritis or radi culitis, unspecified documented in this encounter Care Teams Balancer Scale Relationship Specialty Start Date End Date Marlee Coles MD PCP - General 02/10/15 05/18/21 [place] [address] [address] [address] Tony Gray MD Referring Physician Orthopedics 10/01/14 Conner Harper MD MD Orthopedics 10/01/14 [address] [facility] [address] [place], [place] [address] documented as of this encounter
--- OUTSIDE RECORDS SUMMARY | 2022-04-22 09:43 | XMS_ITS | Encounter Summary ---
:1955 Author Organization [place] Address [address] [place] [address] Care Team Providers Name Role Phone Tony Gray MD Unavailable Conner Harper MD Unavailable Marlee Coles MD Primary Care Provider [phone] Reason for Visit Reason Comments Back Pain Encounter Details Date Type Department Care Team Description 12/13/2018 Hospital Encounter [facility] Codie Cavazos [place] pain syndrome; Pain Center Marivel Hernadez PA-C Degeneration of lumbar or lumbosacral in tervertebral disc; [address] [facility] [address] Lumbar radiculopathy; [place] [address] [place], [place] Opioid type dependence, continuous (H) 101 [address] [place], [place] [phone] [address] (Work) [phone] Social History Tobacco Use Types Packs/Day Years [...] difficulty rising from a seated position. Opioid [place] Precautions: UDS/Swab- 06/07/18, results as expected Consent - 12/13/18 Agreement- 12/13/18 Pharmacy- as documented GERONTOLOGICAL NURSE PRACTITIONER- MNPMP reviewed 12/13/18 as expected Count- n/a [...] drowsiness. He will continue to work with Ayse suarez for programming questions/concerns. Plan: Continue Vicodin [...] Follow-up in 4 weeks Marivel Cavazos PA-C [facility] [address] [facility] [place] [address] documented in this encounter Miscellaneous Notes Patient [...] Pain & [place] [address] [place], [place] [address] (Wo rk) documented as [...] 0.8 12/13/2018 HEALTH mg/dL 9:47 PM CDT [facility] Specimen Anatomical Collection Method / Collection Time Recei ramiro Time (Source) Location / Volume Laterality Blood specimen Venipuncture / 12/13/2018 11:33 2 019 8:03 (specimen) Unknown AM CDT PM CDT Marivel Cavazos PA-C LAB - BLOOD ORDERABLES Performing Organization Address City/[facility] Phon e Number [place] [address] [address] [facility] Erythrocyte sedimentation rate auto (12/13/2018 [...] LAB - BLOOD ORDERABLES Performing Organization Address [facility] Phon e Number [place] [address] [address] [facility] documented in this encounter Visit Diagnoses Diagnosis Chronic pain syndrome Degeneration of lumbar or lumbosacral in tervertebral disc Lumbar radiculopathy Thoracic or lumbosacral neuritis or radi culitis, unspecified Opioid type dependence, continuous (H) Opioid type dependence, continuous documented in this encounter Care Teams Machine Wiper Relationship Specialty Start Date End Date Marlee Coles MD PCP - General 02/10/15 05/18/21 [place] [address] [address] [place] [address] Tony Gray MD Referring Physician Orthopedics 10/01/14 Conner Harper MD MD Orthopedics 10/01/[address] [place], [place] [id number] [place] [address] documented as of this encounter
--- OUTSIDE RECORDS SUMMARY | 2022-04-22 09:43 | XMS_ITS | Encounter Summary ---
:1955 Author Organization [place] Address [address] [place] [address] Care Team Providers Name Role Phone Tony Gray MD Unavailable Conner Harper MD Unavailable aMrlee Coles MD Primary Care Provider [phone] Reason for Visit Reason Comments Back Pain Foot Pain Encounter Details Date Type Department Care Team Description 01/24/2019 Hospital Encounter [facility] Codie Cavazos [place] pain syndrome; Pain Center Marivel Hernadez PA-C Chronic, continuous use of opioids; [address] [facility] [address] Degeneration of lumbar or lumbosacral in tervertebral disc; [place] [address] [place], [place] Lumbar radic ulopathy [address] [place], [place] [phone] [address] (Work) [phone] Social History Tobacco Use Types Packs/Day Years [...] for back pain. Marivel Cavazos PA-C - 01/24/2019 9:50 AM [...] trying to get in touch with a [employer] rep and states no one has called [...] started taking.He still plans to reside in [place] for winter months leaving mid March. He [...] difficulty rising from a seated position. Opioid [place] Precautions: UDS/Swab- 06/07/18, results as expected Consent - 12/13/18 Agreement- 12/13/18 Pharmacy- as documented TRAINING AND DEVELOPMENT ASSISTANT- reviewed 01/24/19 as expected Count- n/a Psychological [...] Follow-up in 8 weeks Marivel Cavazos PA-C [facility] [address] [facility]. [address] [place] [address] documented in this encounter Miscellaneous Notes Patient [...] Pain & [place] [address] [place], [place] [address] (Wo rk) documented as of this encounter Visit Diagnoses Diagnosis Chronic pain syndrome Chronic, continuous use of opioids Opioid type dependence, continuous Degeneration of lumbar or lumbosacral in tervertebral disc Lumbar radiculopathy Thoracic or lumbosacral neuritis or radi culitis, unspecified documented in this encounter Care Teams Coater Smoking Pipe Relationship Specialty Start Date End Date Marlee Coles MD PCP - General 02/10/15 05/18/21 [facility] [place] [address] [address] [id number] Tony Gray MD Referring Physician Orthopedics 10/01/14 Conner Harper MD MD Orthopedics 10/01/[address] [place], [place] [address] documented as of this encounter
--- OUTSIDE RECORDS SUMMARY | 2022-04-22 09:43 | XMS_ITS | Encounter Summary ---
:1955 Author Organization [place] Address [address] [facility] [place] [address] Care Team Providers Name Role Phone Tony Gray MD Unavailable Conner Harper MD Unavailable Marlee Coles MD Primary Care Provider [phone] Reason for Visit Reason Comments Pre-Op Exam Encounter Details Date Type Department Care Team Description 11/15/2018 Communication - [facility] Hawa Jiang, Denisse e-Op Exam [facility] RN [address] [facility] [address] [place] [address] Social History Tobacco Use Types [...] Pain & [place] [address] [place], [place] [address] (Wo rk) documented as of this encounter Visit Diagnoses Not on filedocumented in this encounter Care Teams Jig Operator Relationship Specialty Start Date End Date Marlee Coles MD PCP - General 02/10/15 05/18/21 [place] [address] [address] [address] Tony Gray MD Referring Physician Orthopedics 10/01/14 Conner Haprer MD MD Orthopedics 10/01/14 [facility] [address] [facility] [address] [place] [address] documented as of this encounter
--- OUTSIDE RECORDS SUMMARY | 2022-04-22 09:43 | XMS_ITS | Encounter Summary ---
:1955 Author Organization [place] Address [address] [place] [address] Care Team Providers Name Role Phone Tony Gray MD Unavailable Conner Harper MD Unavailable Marlee Coles MD Primary Care Provider Reason for Visit Reason Comments Back Pain Encounter Details Date Type Department Care Team Description 11/21/2019 Hospital Encounter [facility] Codie Cavazos [place], continuous use of opioids; Pain Center Marivel Hernadez PA-C Chronic pain syndrome; [address] [address] [place] Degeneration of lumbar or lumbosacral in tervertebral disc; [place] [address] [place], [place] Lumbar radic ulopathy 101 [address] [place], [place] [phone] (Work) [phone] Social History Tobacco Use Types Packs/Day Years [...] 4. Lumbar radiculopathy Pain location and description: 8 constant sharp, awful pain in low back, [...] fever/chills, unexplained weight loss. Functional Symptoms: See ELECTRICAL INSTALLATION INSPECTOR note Adverse effects of medications: Denies constipation, [...] pain in bilateral legs, was advised by [facility]ro dermatology sales representative that he had settings too [...] test and wants to get results from veterans' counselor. ?? He states he has been taking [...] loss, psychoses, suicidal ideation, substance use/abuse. Opioid [place] Precautions: UDT- reviewed from 06/13/19, results as expected Consent - 12/13/18 Agreement- 12/13/18 Pharmacy- as documented PELLETIZER OPERATOR- reviewed 11/21/2019 as expected Count- n/a Psychological evaluation n/a MME- up to 60 Pharmacogenetic testing n/a DIANE 03/26/19 Imaging: EXAM: XR THORACIC SPINE 2 VWS LOCATION: [facility] DATE/TIME: 01/30/2019 9:09 AM ?? INDICATION: lead [...] advised to schedule reprogramming again with Ayse which he declined today after making arrangements as he didn't want to drive here from [place]. If this isn't successful, will consider bilateral [...] of tylenol) for pain. Ibuprofen sent to [facility] Ok to take hydroxyzine 25 mg 1-2 up to 3 times a day as needed for itching - refill sent to [facility] Trial duloxetine for leg/knee joint pain - take 30 mg daily x 7 days, then increase to 60 mg daily (2 capsules). May take 4-6 weeks to see effect, call nurse line with any side effects. Reschedule with Ayse for reprogramming recommendations. Follow-up in 8 weeks with Marivel Call Time: 20 minutes Start - 1132 Stop - 1152 Marivel Cavazos PA-C [facility] [address] [facility] [place] [address] Latisha Bautista - 11/21/2019 11:20 AM CDT Images from the original note were not included. Progress Notes by Latisha Bautista CMA at 11/21/2019 11:20 AM Author: Latisha Bautista CMA Service: -- Author Type: Healthcare Administration Internship Filed: 11/21/2019 12:31 PM Date of Service: 11/21/2019 11:20 AM Status: Signed Testing Specialist: Latisha Bautista CMA (Healthcare Administration Internship) Tremaine Plunkett is a 64 y.o. male [...] of tylenol) for pain. Ibuprofen sent to [facility] Ok to take hydroxyzine 25 mg 1-2 up to 3 times a day as needed for itching - refill sent to [facility] Trial duloxetine for leg/knee joint pain - [...] information carefully each time. Talk to your anthropology professor regarding the use of this medicine in children. While this drug may be prescribed for children as young as 7 years of age for selected conditions, precautions do apply. Overdosage: If you think you have taken too much of this medicine contact a poison control center [facility] room at once. NOTE: This medicine is [...] ?? phentermine ?? procarbazine ?? sibutramine ?? Marla's wort ?? theophylline ?? tramadol ?? tryptophan [...] get worse. Visit your doctor or health children's zoo caretaker for regular checks on your progress. Because [...] a change in dose, call your health children's zoo caretaker. You may get drowsy or dizzy. Do [...] should report to your doctor or health children's zoo caretaker as soon as possible: ?? allergic reactions [...] attention (report to your doctor or health children's zoo caretaker if they continue or are bothersome): ?? blurred vision ?? change in appetite ?? change in sex drive or performance ?? headache ?? increased sweating ?? nausea This list may not describe all possible side effects. Call your doctor for medical advice about sideeffects. You may report side effects to FDA at 0-659-ZBV-6420. Where should I keep my medicine? Keep [...] of Service: 11/21/2019 11:20 AM Status: Signed Testing Specialist: Analisa Chi Encounter addended by: Analisa Chi on: 11/27/2019 11:10 AM Actions taken: Charge Capture section accepted documented in this encounter Plan of Treatment Upcoming Encounters Date Type Specialty Care Team Description 04/26/2022 Virtual Visit Pain [facility] [place] [address] [place], [place] [address] (Wo rk) documented as of this encounter Visit Diagnoses Diagnosis Chronic, continuous use of opioids Opioid type dependence, continuous Chronic pain syndrome Degeneration of lumbar or lumbosacral in tervertebral disc Lumbar radiculopathy Thoracic or lumbosacral neuritis or radi culitis, unspecified documented in this encounter Care Teams Financial Analyst Accountant Relationship Specialty Start Date End Date Marlee Coles MD PCP - General 02/10/15 05/18/21 [place] [address] [address] [address] Tony Gray MD Referring Physician Orthopedics 10/01/14 Conner Harper MD MD Orthopedics 10/01/[address] [place], [place] [address] documented as of this encounter
--- OUTSIDE RECORDS SUMMARY | 2022-04-22 09:43 | XMS_ITS | Encounter Summary ---
:1955 Author Organization [place] Address [address] [facility] [place] [address] Care Team Providers Name Role Phone Toyn Gray MD Unavailable Conner Harper MD Unavailable Marlee Coles MD Primary Care Provider [phone] Encounter Details Date Type Department Care Team Description 12/14/2018 [facility] Marivel Cavazos [facility] MATT Hernadez [address] [facility] [address] [place] [address] [address] [place] [address] [place], [place] [phone] (Work) [phone] Social History Tobacco Use Types Packs/Day Years [...] (Other) Tremaine Plunkett [address] [facility] [place] [address] December 14, 2018 Dear Mr. Plunkett, Below are the results from your recent visit: Resulted Orders Sedimentation Rate Result Value Ref Range Sed Rate 3 0 - 15 mm/hr C-Reactive Protein (CRP) Result Value Ref Range CRP 0.5 0.0 - 0.8 mg/dL The test results show that your inflammatory markers are normal. Please call with questions or contact us using [employer]. Sincerely, Electronically signed by Marivel Cavazos PA-C documented in this encounter Plan of Treatment Upcoming Encounters Date Type Specialty Care Team Description 04/26/2022 Virtual Visit Pain & [place] [address] [place], [place] [address] (Wo rk) documented as of this encounter Visit Diagnoses Not on filedocumented in this encounter Care Teams Drawing Operator Relationship Specialty Start Date End Date Marlee Coles MD PCP - General 02/10/15 05/18/21 [facility] [place] [address] [address] [address] Tony Gray MD Referring Physician Orthopedics 10/01/14 Conner Harper MD MD Orthopedics 10/01/[address] [place], [place] [address] [place], [place] [id number] documented as of this encounter
--- OUTSIDE RECORDS SUMMARY | 2022-04-22 09:44 | XMS_ITS | Encounter Summary ---
:1955 Author Organization [place] Address [address] [facility] [place] [address] Care Team Providers Name Role Phone Tony Gray MD Unavailable Conner Harper MD Unavailable Marlee Coles MD Primary Care Provider [phone] Reason for Visit Reason Comments Follow Up Encounter Details Date Type Department Care Team Description 01/31/[address] [facility] Codie Cavazos [place] pain syndrome; Pain Center Marivel Hernadez PA-C Degeneration of lumbar or lumbosacral in tervertebral disc; [address] [facility] [address] Bilateral lumbar radiculopathy; [place] [address] [place], [place] Degeneration of thoracic intervertebral disc; [phone] Opioid type dependence, continuous (H) [place], [place] [phone] [address] (Work) [phone] Social History Tobacco Use Types Packs/Day Years [...] - - Weight 99.8 kg (220 lb) 01/31/2018 10:30 AM CDT Height 170.2 cm (5' 7) 01/31/2018 10:30 AM CDT Body Mass Index 34.46 01/31/2018 10:30 AM CDT documented in this encounter Medications [...] this encounter Progress Notes Antonietta Moreno - 01/31/2018 8:55 AM CDT Pt is being seen today for f/u of his back pain. Marivel Cavazos PA-C - 01/31/2018 8:55 AM CDT Images from the original note were not included. Progress Notes by Marivel Cavazos PA-C at 01/31/2018 8:55 AM Author: Marivel Cavazos PA-C Service: -- Author Type: Physician Crossing Supervisor Filed: 01/31/2018 3:06 PM Date of Service: 01/31/2018 8:55 AM Status: Signed Global Marketing Operations Manager: Marivel Cavazos PA-C (Physician Crossing Supervisor) PAIN CENTER PROGRESS NOTE Subjective: Tremaine Plunkett [...] Use Pain location and description: 8/10 constant sharp, stabbing pain in mid and low back, buttock, and bilateral legs. Function rated 8. At best, pain rated 7/10 and at worst pain rated 10/10 and on average pain rated 8/10. Radiation of [...] with sleep, walking, ADLs, relationships/social, sexual health,mood (frustrated). Adverse effects of medications: Denies constipation, drowsiness, dizziness, nausea/abdominal symptoms, itching/rash. Reports increase in headaches past month. Current treatment efficacy: Poor. Vicodin 10/325 mg 1 every 4-6 hours prn max 6/24 hours. Current treatment compliance: Good; denies self-escalation [...] leg and right knee. Describes the majority of pain in lower back and pain in feet, hestates his feet get cold and he wears socks with his sandals in summertime. He is unsure why he has more pain, no new injuries or triggers. He was seen by Dr. Zhang Masterson on 01/15/18 for shortness of breath and also EKG, spirometry, labs ordered: ICD-10-CM 1. SOB (shortness of breath) R06.02 FL READING EKG - NO CHARGE, COMP ONLY EKG 12 LEAD FL ELECTROCARDIOGRAM COMPLETE ECHO STRESS WO CONTRAST AMB SPIROMETRY WO BRONCHODILATOR EKG 12 LEAD 2. Fatigue, unspecified type R53.83 CBC AND DIFFERENTIAL TSH COMP METABOLIC PANEL CBC AND DIFFERENTIAL TSH COMP METABOLIC PANEL CBC WITH AUTO DIFFERENTIAL 3. Well adult exam Z00.00 LIPID PANEL W REFLEX MEASURED LDL HEMOGLOBIN A1C SCREENING PSA TOTAL SCREEN LIPID PANEL W REFLEX MEASURED LDL HEMOGLOBIN A1C SCREENING PSA TOTAL SCREEN 4. Encounter for screening for malignant neoplasm of prostate Z12.5 PSA TOTAL SCREEN PSA TOTAL SCREEN I will get heart and lung testing and get some basic labs. We will treat if we find a cause. If nothing found, we will get a sleep study.?? He asks if Gus takes your breath away as he was having this concern while on it but since being off of it he hasn't had any more shortness of breath symptom. He states all his work up with labs andheart/lung testing was negative. Last visit discussed weaning belbuca due to headaches and lack of pain control on 600 mcg every 12 hours. He reports no difficulty weaning off and denies any headaches since then. He has been taking Vicodin 10/325 mg 1 tab every 4-6 hours prn max 6 per day. He asks if this is highest dose as he doesn't find it very helpful. He denies side effects. He states he is trying to take 1 tab every 3 hours and tylenol in between 2 500 mg tabs at lunch and bedtime but not every day. He was also prescribed medrol dose pack which he took and reports he didn't get much relief. He denies side effects. He states pain has worsened since last seen. He also wants to proceed with spinal cord stimulator consult with Dr. Loyola. He has reviewed educational materials and thinks this is a good option for him at this time. Goal to have better pain control and allow for reduction in some of his medication doses. He had diagnostic assessment today withRADHA Fairbanks. He had consult with Dr. Loyola on 12/06/17: IMPRESSION / PLAN: Mr. Plunkett has low [...] we will submit it for insurance approval. Review of Systems Constitutional: Sleep disturbance due [...] psychoses, suicidal ideation, substance use/abuse. Objective: Vitals: 01/31/18 1030 BP: 154/76 Pulse: (!) 54 Weight: 220 lb (99.8 kg) Height: 5' 7 (1.702 m) PainSc: 8 PainLoc: Back Physical Exam Constitutional- General appearance: Well developed, uncomfortable, overweight, and appearance reflects stated age. Presents alone. Standing for part of visit. Psychiatric- Judgment and insight: Normal. Speech: [...] a seated position. Opioid [place] Precautions: UDS/Swab- 04/12/17 as expected. Consent - 08/24/17 Agreement- 08/24/17 Pharmacy- as documented SHOVEL MECHANIC- MNPMP reviewed 01/31/18 as expected Count- n/a Psychological evaluation n/a MME- 60 Pharmacogenetic testing n/a DIANE 10/26/17 Imaging: None [...] We have recommended SCS trial and he would like to have consult with Dr. Loyola as he has failed multiple injections, PT, medications in the past. He may be interested in medical cannabis trial with goal of reducing opioids but not at this time as he plans to return to [place] and worried about cost. He has not [...] would be helpful for pain control. He denies side effects and is educated on possible side effects and risks. Review concern of respiratory depression as he reported some shortness of breath with belbuca and no symptoms since discontinuing. Review it is still recommended he have sleep study. Plan: Increase Vicodin 10/325 mg 1-2 tablet every 4-6 hours as needed for pain. Max 8 tabs in 24 hours. Refill sent to fill today. Continue Methocarbamol 500 mg at bedtime as [...] diet. Schedule with Dr. Loyola for SCS trial when approved by work comp. Diagnostic assessment was completed today and all paperwork to be submitted. Follow-up in 8 weeks Marivel Cavazos PA-C [facility] [address] [facility] [place] [address] documented in this encounter Plan of Treatment Upcoming Encounters Date Type Specialty Care Team Description 04/26/2022 Virtual Visit Pain & [place] [address] [place], [place] [address] (Wo rk) documented as of this encounter Visit Diagnoses Diagnosis Chronic pain syndrome Degeneration of lumbar or lumbosacral in tervertebral disc Bilateral lumbar radiculopathy Degeneration of thoracic intervertebral disc Degeneration of thoracic or thoracolumba r intervertebral disc Opioid type dependence, continuous (H) Opioid type dependence, continuous documented in this encounter Care Teams Rubber Goods Tester Water Relationship Specialty Start Date End Date Marlee Coles MD PCP - General 02/10/15 05/18/21 [place] [address] [address] [address] Tony Gray MD Referring Physician Orthopedics 10/01/14 Conner Harper MD MD Orthopedics 10/01/[address] [place] [address] documented as of this encounter
--- OUTSIDE RECORDS SUMMARY | 2022-04-22 09:44 | XMS_ITS | Encounter Summary ---
:1955 Author Organization [place] Address [address] [facility] [place] [address] Care Team Providers Name Role Phone Tony Gray MD Unavailable Conner Harper MD Unavailable Marlee Coles MD Primary Care Provider [phone] Reason for Visit Reason Comments Back Pain Encounter Details Date Type Department Care Team Description 10/26/2017 Hospital Encounter [facility] Codie Cavazos [place] pain syndrome; Pain Center Marivel Hernadez PA-C Degeneration of lumbar or lumbosacral in tervertebral disc; [address] [facility] [address] Bilateral lumbar radiculopathy; [place] [address] [place], [place] Opioid type dependence, continuous (H); [phone] Degeneration of thoracic intervertebral disc [place], [place] [phone] (Work) [phone] Social History Tobacco Use Types Packs/Day Years [...] change in activity. Did ride home from [place] as he gets up every 2 hours andhe states he doesn't feel his legs due to numbness. He states he slides out of the truck and he hangs on to door and takes 2-3 minutes before he can walk. He was advised by Dr. Steinberg no further surgeries. Discuss neurosurgical second opinion for surgical consult. He states he has returned to [place] for the summer, but did buy a home in [place] for the [place]. Will work with work comp carrier to find a pain provider when he returns there. He was considering medical cannabis, but knows he cannot cross state lines with this and would have to be registered in [place] as well. He isn't sure if he [...] difficulty rising from a seated position. Opioid [place] Precautions: UDS/Swab- 04/12/17 as expected. Consent - 08/24/17 Agreement- 08/24/17 Pharmacy- as documented RN TRIAGE- MNPMP reviewed 10/26/17 as expected Count- n/a [...] to sitting in a car traveling from [place] to [place]. He did see Dr. Sepulveda updated imaging [...] pursuing medical cannabis enrollment, will speak with electronic news gathering editor Follow-up in 4 weeks Marivel Cavazos PA-C [facility] [address] [facility] [place] [address] documented in this encounter Plan of Treatment Upcoming Encounters Date Type Specialty Care Team Description 04/26/2022 Virtual Visit Pain & [place] [address] [place], [place] [address] (Wo rk) documented as of this encounter Visit Diagnoses Diagnosis Chronic pain syndrome Degeneration of lumbar or lumbosacral in tervertebral disc Bilateral lumbar radiculopathy Opioid type dependence, continuous (H) Opioid type dependence, continuous Degeneration of thoracic intervertebral disc Degeneration of thoracic or thoracolumba r intervertebral disc documented in this encounter Care Teams Ingot Header Relationship Specialty Start Date End Date Marlee Coles MD PCP - General 02/10/15 05/18/21 [facility] [place] [address] [address] [address] Tony Gray MD Referring Physician Orthopedics 10/01/14 Conner Harper MD MD Orthopedics 10/01/14 [address] [facility] [address] [place], [place] [id number] documented as of this encounter
--- OUTSIDE RECORDS SUMMARY | 2022-04-22 09:44 | XMS_ITS | Encounter Summary ---
:1955 Author Organization [place] Address [address] [facility] [place] [address] Care Team Providers Name Role Phone Tony Gray MD Unavailable Conner Harper MD Unavailable Marlee Coles MD Primary Care Provider Reason for Visit Reason Comments Back Pain Encounter Details Date Type Department Care Team Description 12/27/2017 Hospital Encounter [facility] [place] t[place] lumbar radiculopathy; Pain Center Marivel Hernadez PA-C Chronic pain syndrome; [address] [facility] [address] [place] Degeneration of lumbar or lumbosacral in tervertebral disc; [place] [address] [place], [place] Chronic, con tinuous use of opioids [address] [address] [place], [place] [phone] (Work) [phone] Social History Tobacco Use Types Packs/Day Years [...] by insurance and is working with his protective signal installer on this to be covered.He wants to wait on any medical cannabis registration as he worries about how that would work as he will winter again in [place] and isn't sure work comp will approve it even with his protective signal installer. Review of Systems Constitutional: Sleep disturbance due [...] difficulty rising from a seated position. Opioid [place] Precautions: UDS/Swab- 04/12/17 as expected. Consent - 03/08/18 Agreement- 08/24/17 Pharmacy- as documented MOLDER OFFBEARER- MNPMP reviewed 12/27/17 as expected Count- n/a [...] time as he plans to return to [place] and worried about cost. He has not [...] Follow-up in 4 weeks Marivel Cavazos PA-C [facility] [address] [facility] [place] [address] documented in this encounter Plan of Treatment Upcoming Encounters Date Type Specialty Care Team Description 04/26/2022 Virtual Visit Pain & [place] [address] [place], [place] [address] (Wo rk) documented as of this encounter Visit Diagnoses Diagnosis Bilateral lumbar radiculopathy Chronic pain syndrome Degeneration of lumbar or lumbosacral in tervertebral disc Chronic, continuous use of opioids Opioid type dependence, continuous documented in this encounter Care Teams Elevator Constructor Relationship Specialty Start Date End Date Marlee Coles MD PCP - General 02/10/15 05/18/21 [facility] [place] [address] [address] [place] [address] Tony Gray MD Referring Physician Orthopedics 10/01/14 Conner Harper MD MD Orthopedics 10/01/[address] [place], [place] [address] documented as of this encounter
--- OUTSIDE RECORDS SUMMARY | 2022-04-22 09:44 | XMS_ITS | Encounter Summary ---
:1955 Author Organization [place] Address [address] [facility] [address] Care Team Providers Name Role Phone Tony Gray MD Unavailable Conner Harper MD Unavailable Marlee Coles MD Primary Care Provider [phone] Encounter Details Date Type Department Care Team Description 03/08/2017 Communication - [facility] Provider, [facility] Pain Center Historical [address] [facility] [address] [place] [address] Social History Tobacco Use Types Packs/Day Years Used Date Smoking Tobacco: Never Assessed Sex Assigned at Date Recorded Not on file documented as of this encounter Plan of Treatment Upcoming Encounters Date Type Specialty Care Team Description 04/26/2022 Virtual Visit Pain & [place] [address] [place], [place] [address] (Wo rk) documented as of this encounter Visit Diagnoses Not on filedocumented in this encounter Care Teams Volunteer Patient Representative Relationship Specialty Start Date End Date Marlee Coles MD PCP - General 02/10/15 05/18/21 [place] [address] [address] [place] [address] Tony Gray MD Referring Physician Orthopedics 10/01/14 Conner Harper MD MD Orthopedics 10/01/14 [facility] [address] [address] documented as of this encounter
--- OUTSIDE RECORDS SUMMARY | 2022-04-22 09:44 | XMS_ITS | Encounter Summary ---
:1955 Author Organization [place] Address [address] [place] [address] Care Team Providers Name Role Phone Tony Gray MD Unavailable Conner Harper MD Unavailable Marlee Coles MD Primary Care Provider Encounter Details Date Type Department Care Team Description 02/21/2018 [facility] Sharona Leach, [facility] Pain Center RN [address] [place] [facility] [address] [place] [address] Social History Tobacco Use Types Packs/Day Years Used Date Smoking Tobacco: Never Assessed Sex Assigned at Date Recorded Not on file documented as of this encounter Plan of Treatment Upcoming Encounters Date Type Specialty Care Team Description 04/26/2022 Virtual Visit Pain & [place] [address] [place], [place] [address] (Wo rk) documented as of this encounter Visit Diagnoses Not on filedocumented in this encounter Care Teams Photoengraving Etcher Relationship Specialty Start Date End Date Marlee Coles MD PCP - General 02/10/15 05/18/21 [place] [address] [address] [place], [place] [id number] Tony Gray MD Referring Physician Orthopedics 10/01/14 Conner Harper MD MD Orthopedics 10/01/14 [facility] [address] [address] documented as of this encounter
--- OUTSIDE RECORDS SUMMARY | 2022-04-22 09:44 | XMS_ITS | Encounter Summary ---
:1955 Author Organization [place] Address [address] [place] [address] Care Team Providers Name Role Phone Tony Gray MD Unavailable Conner Harper MD Unavailable Marlee Coles MD Primary Care Provider [phone] Reason for Visit Reason Comments Back Pain Encounter Details Date Type Department Care Team Description 12/06/2017 Hospital [facility]counter [facility] Hugo Loyola onic pain Pain Center MD Carla syndrome [address] [facility] [address] [facility] [place] [address] [place] [address] [phone] Social History Tobacco Use Types Packs/Day Years [...] now on [place] and continues to take [place] 10/325 up to three times a day [...] clonidine 0.2%, imipramine 3%, lidocaine 5%. ??? zkjfjjzmgwh-gtydiutdojjtco-dolkjfzofwew (PREVPAC) 500-500-30 mg combo pack ??? methocarbamol (ROBAXIN) 500 MG tablet Take 1 tablet (500 mg total) by mouth at bedtime as needed. 30 tablet 2 Hugo Loyola MD [facility] documented in this encounter Plan of Treatment Upcoming Encounters Date Type Specialty Care Team Description 04/26/2022 Virtual Visit Pain & [place] [address] [place], [place] [address] (Wo rk) documented as of this encounter Visit Diagnoses Diagnosis Chronic pain syndrome documented in this encounter Care Teams Knot Tier Relationship Specialty Start Date End Date Marlee Coles MD PCP - General 02/10/15 05/18/21 [place] [address] [address] [address] Tony Gray MD Referring Physician Orthopedics 10/01/14 Conner Harper MD MD Orthopedics 10/01/[address] [place], [place] [address] documented as of this encounter
--- OUTSIDE RECORDS SUMMARY | 2022-04-22 09:44 | XMS_ITS | Encounter Summary ---
:1955 Author Organization [place] Address [address] [facility] [place] [address] Care Team Providers Name Role Phone Tony Gray MD Unavailable Conner Harper MD Unavailable Marlee Coles MD Primary Care Provider Reason for Visit Reason Comments Other refill question Encounter Details Date Type Department Care Team Description 03/12/2018 Communication - [facility] Marcela Isabel Other (refill [facility] A, RN question) [address] [facility] [address] [place] [address] Social History Tobacco Use Types Packs/Day Years Used Date Smoking Tobacco: Never Assessed Sex Assigned at Date Recorded Not on file documented as of this encounter Plan of Treatment Upcoming Encounters Date Type Specialty Care Team Description 04/26/2022 Virtual Visit Pain & [place] [address] [place], [place] [address] (Wo rk) documented as of this encounter Visit Diagnoses Diagnosis Chronic pain syndrome documented in this encounter Care Teams Boxing Instructor Relationship Specialty Start Date End Date Marlee Coles MD PCP - General 02/10/15 05/18/21 [place] [address] [facility] [address] [place], [place] [id number] Tony Gray MD Referring Physician Orthopedics 10/01/14 Conner Harper MD MD Orthopedics 10/01/14 [address] [facility] [address] [place] [address] documented as of this encounter
--- OUTSIDE RECORDS SUMMARY | 2022-04-22 09:44 | XMS_ITS | Encounter Summary ---
:1955 Author Organization [place] Address [address] [place] [address] Care Team Providers Name Role Phone Tony Gray MD Unavailable Conner Harper MD Unavailable Marlee Coles MD Primary Care Provider Reason for Visit Reason Comments Back Pain Encounter Details Date Type Department Care Team Description 04/12/2017 Hospital Encounter [facility] Codie Cavazos [place] pain syndrome; Pain Center Marivel Hernadez PA-C Opioid type dependence, continuous (H); [address] [facility] [address] Degeneration of thoracic intervertebral disc; [place] [address] [place], [place] Degeneration of lumbar or lumbosacral intervertebral disc [address] [place], [place] [phone] [address] (Work) [phone] Social History Tobacco Use Types Packs/Day Years [...] However, he is leaving this weekend for [place] and doesn't want to make any medication [...] difficulty rising from a seated position. Opioid [place] Precautions: UDS/Swab- collected 04/12/17, results pending. Consent due Agreement- 07/21/16 Pharmacy- as documented PCB DESIGNER- MNPMP reviewed 04/12/17 as expected Count- n/a [...] son needs to mail to you in [place].) Check with your pharmacy that all prescriptions [...] due to the need to comply with [facility] PolicyGuidelines and CDC Guideline for the use [...] to age, race, gender, socioeconomic status or buddhism affiliation. Follow these instructions for safe medication [...] your garbage can. For questions, go to [email or web address] or call your [facility]'s UrbanTakeover program. Marivel Cavazos PA-C [facility] [address] [facility] [place] [address] documented in this encounter Plan of Treatment Upcoming Encounters Date Type Specialty Care Team Description 04/26/2022 Virtual Visit Pain & [place] [address] [place], [place] [address] (Wo rk) documented as of this encounter Visit Diagnoses Diagnosis Chronic pain syndrome Opioid type dependence, continuous (H) Opioid type dependence, continuous Degeneration of thoracic intervertebral disc Degeneration of thoracic or thoracolumba r intervertebral disc Degeneration of lumbar or lumbosacral in tervertebral disc documented in this encounter Care Teams Director Of Scientific Research Relationship Specialty Start Date End Date Marlee Coles MD PCP - General 02/10/15 05/18/21 [facility] [place] [address] [address] [address] Tony Gray MD Referring Physician Orthopedics 10/01/14 Conner Harper MD MD Orthopedics 10/01/14 [address] [facility] [address] [place] [address] documented as of this encounter
--- OUTSIDE RECORDS SUMMARY | 2022-04-22 09:44 | XMS_ITS | Encounter Summary ---
:1955 Author Organization [place] Address [address] [facility] [address] Care Team Providers Name Role Phone Tony Gray MD Unavailable Conner Harper MD Unavailable Marlee Coles MD Primary Care Provider Encounter Details Date Type Department Care Team Description 02/06/2018 Communication - [facility] [place] Hawa Jiang radiculopathy [facility] A, RN [address] [facility] [address] [place] [address] Social History Tobacco Use Types Packs/Day Years Used Date Smoking Tobacco: Never Assessed Sex Assigned at Date Recorded Not on file documented as of this encounter Plan of Treatment Upcoming Encounters Date Type Specialty Care Team Description 04/26/2022 Virtual Visit Pain & [place] [address] [place], [place] [address] (Wo rk) documented as of this encounter Visit Diagnoses Diagnosis Lumbar radiculopathy Thoracic or lumbosacral neuritis or radi culitis, unspecified documented in this encounter Care Teams Database Security Administrator Relationship Specialty Start Date End Date Marlee Coles MD PCP - General 02/10/15 05/18/21 [place] [address] [address] [place] [address] Tony Gray MD Referring Physician Orthopedics 10/01/14 Conner Harper MD MD Orthopedics 10/01/14 [address] [facility] [address] [place] [address] documented as of this encounter
--- OUTSIDE RECORDS SUMMARY | 2022-04-22 09:44 | XMS_ITS | Encounter Summary ---
:1955 Author Organization [place] Address [address] [facility] [place] [address] Care Team Providers Name Role Phone Tony Gray MD Unavailable Conner Harper MD Unavailable Marlee Coles MD Primary Care Provider Reason for Visit Reason Comments Other medication problem Encounter Details Date Type Department Care Team Description 04/11/2018 Communication - [facility] Yane Gil (medication [facility] Jayna Lopez RN problem) [address] [place] [address] Social History Tobacco Use Types Packs/Day Years Used Date Smoking Tobacco: Never Assessed Sex Assigned at Date Recorded Not on file documented as of this encounter Plan of Treatment Upcoming Encounters Date Type Specialty Care Team Description 04/26/2022 Virtual Visit Pain & [place] [address] [place], [place] [address] (Wo rk) documented as of this encounter Visit Diagnoses Diagnosis Chronic pain syndrome documented in this encounter Care Teams Craft Center Director Relationship Specialty Start Date End Date Marlee Coles MD PCP - General 02/10/15 05/18/21 [place] [address] [address] [place], [place] [id number] Tony Gray MD Referring Physician Orthopedics 10/01/14 Conner Harper MD MD Orthopedics 10/01/14 [facility] [place], [place] [address] [place] [address] documented as of this encounter
--- OUTSIDE RECORDS SUMMARY | 2022-04-22 09:44 | XMS_ITS | Encounter Summary ---
:1955 Author Organization [place] Address [address] [facility] [place] [address] Care Team Providers Name Role Phone Tony Gray MD Unavailable Conner Harper MD Unavailable Marlee Coles MD Primary Care Provider [phone] Marivel Cavazos PA-C Unavailable Zhang Masterson Primary [...] Pain & [place] [address] [place], [place] [address] (Wo rk) documented as of this encounter Visit Diagnoses Not on filedocumented in this encounter Care Teams Visual Designer Relationship Specialty Start Date End Date Marlee Coles PCP - General 02/10/15 [place] [address] [address] [place], [place] [phone] Zhang Masterson PCP - General Family Medicine 05/19/[address] [place] [address] Tony Gray MD Referring Physician Orthopedics 10/01/14 Conner Harper MD MD Orthopedics 10/01/[address] [place] [address] Marivel Cavazos, Assigned Surgical Provider [address] [place], [place] [id number] documented as of this encounter
--- OUTSIDE RECORDS SUMMARY | 2022-04-22 09:44 | XMS_ITS | Encounter Summary ---
:1955 Author Organization [place] Address [address] [facility] [place] [address] Care Team Providers Name Role Phone Tony Gray MD Unavailable Conner Harper MD Unavailable Marlee Coles MD Primary Care Provider [phone] Reason for Visit Reason Comments Follow Up Encounter Details Date Type Department Care Team Description 04/03/2018 Hospital Encounter [facility] Codie Cavazos [place] pain syndrome; Pain Center Marivel Hernadez PA-C Degeneration of lumbar or lumbosacral in tervertebral disc; [address] [facility] [address] Bilateral lumbar radiculopathy; [place] [address] [place], [place] Degeneration of thoracic intervertebral disc; [phone] Chronic, continuous use of opioids [place], [place] [phone] [address] (Work) [phone] Social History Tobacco Use Types Packs/Day Years [...] Cavazos PA-C Service: -- Author Type: Physician Information Technology Data Analyst Filed: 04/03/2018 10:17 AM Date of Service: 04/03/2018 9:30 AM Status: Signed Assistant Professor Of Philosophy: Marivel Cavazos PA-C (Physician Information Technology Data Analyst) PAIN CENTER PROGRESS NOTE Subjective: Tremaine Plunkett [...] pain in feet. He will leave for [place] this . He will be gone all winter for 6 months. He isn't sure yet who he will see for pain and will return in May for follow-up but is going to try to establish care there as well as he has a house in [facility]. He is still interested for SCS trial and did get approval but he wasn't able to schedule the trial in time beforehe left so he is hoping to do this when he returns in the spring. Driving to [place] takes 4- 6 days due to back pain. He states he will fly back at [place]. Vicodin dosing allows pain rating to be [...] difficulty rising from a seated position. Opioid [place] Precautions: UDS/Swab- 04/12/17 as expected. Consent - 08/24/17 Agreement- 08/24/17 Pharmacy- as documented SITE CONTROLLER- MNPMP reviewed 04/03/18 as expected Count- n/a [...] leaving this week for 6 months in [place]. I have advised him to establish care for PCP and pain management while he is away. He has not yet so he will return in 2 months here for follow-up. He may be interested in medical cannabistrial with goal of reducing opioids but not at this time as he plans to return to [place] and worried about cost. He has not [...] bedtime as needed - refill sent to [facility]. You may continue over the counter ibuprofen with food up to 2400 mg daily or tylenol up to 3,000 mg daily (remember to calculate each Vicodin tablet has 325 mg of tylenol). Will wait to schedule with Dr. Loyola for SCS trial in the spring when you are here for several months. Follow-up in 8 weeks Marivel Cavazos PA-C [facility] [address] [facility] [place] [address] documented in this encounter Plan of Treatment Upcoming Encounters Date Type Specialty Care Team Description 04/26/2022 Virtual Visit Pain & [place] [address] [place], [place] [address] (Wo rk) documented as of this encounter Visit Diagnoses Diagnosis Chronic pain syndrome Degeneration of lumbar or lumbosacral in tervertebral disc Bilateral lumbar radiculopathy Degeneration of thoracic intervertebral disc Degeneration of thoracic or thoracolumba r intervertebral disc Chronic, continuous use of opioids Opioid type dependence, continuous documented in this encounter Care Teams Policy Writer Relationship Specialty Start Date End Date Marlee Coles MD PCP - General 02/10/15 05/18/21 [facility] [place] [address] [address] [address] Tony Gray MD Referring Physician Orthopedics 10/01/14 Conner Harper MD MD Orthopedics 10/01/14 [address] [facility] [address] [place] [address] documented as of this encounter
--- OUTSIDE RECORDS SUMMARY | 2022-04-22 09:44 | XMS_ITS | Encounter Summary ---
:1955 Author Organization [place] Address [address] [facility] [place] [address] Care Team Providers Name Role Phone Tony Gray MD Unavailable Conner Harper MD Unavailable Marlee Coles MD Primary Care Provider [phone] Reason for Visit Reason Comments Back Pain Encounter Details Date Type Department Care Team Description 06/08/2017 Hospital Encounter [facility] Codie Cavazos [place] pain syndrome; Pain Center Marivel Hernadez PA-C Opioid type dependence, continuous (H); [address] [facility] [address] Degeneration of thoracic intervertebral disc; [place] [address] [place], [place] Degeneration of lumbar or lumbosacral intervertebral disc; [phone] Bilateral lumbar radiculopathy [place], [place] [phone] [address] (Work) [phone] Social History Tobacco Use Types Packs/Day Years [...] 99.8 kg (220 lb) 06/08/2017 11:38 AM TEACHER AIDE Height 170.2 cm (5' 7) 06/08/2017 11:38 AM TEACHER AIDE Body Mass Index 34.46 06/08/2017 11:38 AM TEACHER AIDE documented in this encounter Medications at Time [...] reports he just returned last night from [place], plans to spend [place] in [place] then return to [place]. He states he rode in a car [...] to palpation at SI Joints bilaterally. Opioid [place] Precautions: UDS/Swab- reviewed from 04/12/17 as expected. Consent due Agreement- 07/21/16 Pharmacy- as documented SALES SUPPORT REP- MNPMP reviewed 06/08/17 as expected Count- n/a Psychological evaluation n/a MME- 120 Pharmacogenetic testing n/a DIANE Score: 58 06/08/17 Imaging: None new. Assessment: Tremaine Plunkett is a 61 y.o. male seen in clinic today for chronic thoracic and lumbar degeneration,opioid dependence. He is reporting constant bilateral buttock numbness into lower legs bilaterally. Coccydynia secondary to sitting in a car traveling from [place] to [place]. He did see Dr. Steinberg with updated [...] Follow-up in 8 weeks Marivel Cavazos PA-C [facility] [address] [facility]. [address] [place] [address] HER AIDE documented in this encounter Plan of Treatment Upcoming Encounters Date Type Specialty Care Team Description 04/26/2022 Virtual Visit Pain & [place] [address] [place], [place] [address] (Wo rk) documented as of this encounter Visit Diagnoses Diagnosis Chronic pain syndrome Opioid type dependence, continuous (H) Opioid type dependence, continuous Degeneration of thoracic intervertebral disc Degeneration of thoracic or thoracolumba r intervertebral disc Degeneration of lumbar or lumbosacral in tervertebral disc Bilateral lumbar radiculopathy documented in this encounter Care Teams Steward Racetrack Relationship Specialty Start Date End Date Marlee Coles MD PCP - General 02/10/15 05/18/21 [place] [address] [address] [place] [address] Tony Gray MD Referring Physician Orthopedics 10/01/14 Conner Harper MD MD Orthopedics 10/01/[address] [place] [address] documented as of this encounter
--- OUTSIDE RECORDS SUMMARY | 2022-04-22 09:44 | XMS_ITS | Encounter Summary ---
:1955 Author Organization [place] Address [address] [place] [address] Care Team Providers Name Role Phone Tony Gray MD Unavailable Conner Harper MD Unavailable Marlee Coles MD Primary Care Provider Encounter Details Date Type Department Care Team Description 01/31/2018 Hospital Encounter [facility] [place], [place], Adj ustment disorder with depressed mood; Pain Center [facility] Chronic pain syndrome [address] [facility] [address] [facility] [place] [facility] [address] [place] [id number] Social History Tobacco Use Types Packs/Day Years [...] Pain & [place] [address] [facility] [address] [place], [place] [address] (Wo rk) documented as of this encounter Visit Diagnoses Diagnosis Adjustment disorder with depressed mood Chronic pain syndrome documented in this encounter Care Teams Mobile Lounge Driver Or Operator Relationship Specialty Start Date End Date Marlee Coles MD PCP - General 02/10/15 05/18/21 [place] [address] [address] [facility] [address] [place], [place] [address] Tony Gray MD Referring Physician Orthopedics 10/01/14 Conner Harper MD MD Orthopedics 10/01/[address] [place] [address] documented as of this encounter
--- OUTSIDE RECORDS SUMMARY | 2022-04-22 09:44 | XMS_ITS | Encounter Summary ---
:1955 Author Organization [place] Address [address] [facility] [place] [address] Care Team Providers Name Role Phone Tony Gray MD Unavailable Conner Harper MD Unavailable Marlee Coles MD Primary Care Provider Reason for Visit Reason Comments Back Pain Encounter Details Date Type Department Care Team Description 08/24/2017 Hospital Encounter [facility] Codie Cavazos [place] pain syndrome; Pain Center Marivel Hernadez PA-C Degeneration of lumbar or lumbosacral in tervertebral disc; [address] [place] [address] [place] Opioid type dependence, continuous (H) [place] [address] [place], [place] [address] [place], [place] [phone] [address] (Work) [phone] Social History Tobacco Use Types Packs/Day Years [...] 99.8 kg (220 lb) 08/24/2017 11:01 AM MANAGER MARKET DEVELOPMENT Height 170.2 cm (5' 7) 08/24/2017 11:01 AM MANAGER MARKET DEVELOPMENT Body Mass Index 34.46 08/24/2017 11:01 AM MANAGER MARKET DEVELOPMENT documented in this encounter Medications at Time [...] any period of time. Will return to [place] 10/17 and then still interested in medical cannabis program. Discuss that if he continues to reside in [place] in the winter months he will also need to arrange for that in a different state if helpful as the [place] cannabis should not be taken in airlines [...] difficulty rising from a seated position. Opioid [place] Precautions: UDS/Swab- 04/12/17 as expected. Consent - 08/24/17 Agreement- 08/24/17 Pharmacy- as documented COMPLIANCE MGR- MNPMP reviewed 08/24/17 as expected Count- n/a Psychological evaluation n/a MME- 60 Pharmacogenetic testing n/a DIANE 06/08/17 Imaging: None new. Assessment: Tremaine Plunkett is a 61 y.o. male seen in clinic today for chronic thoracic and lumbar degeneration,opioid dependence. He is reporting constant bilateral buttock numbness into lower legs and feet bilaterally. Coccydynia secondary to sitting in a car traveling from [place] to [place]. He did see Dr. Sepulveda updated imaging [...] in [address] Cavazos PA-C [facility] [address] [facility] [place] [address] GER MARKET DEVELOPMENT documented in this encounter Plan of Treatment Upcoming Encounters Date Type Specialty Care Team Description 04/26/2022 Virtual Visit Pain & [place] [address] [address] [place] [address] (Wo rk) documented as of this encounter Visit Diagnoses Diagnosis Chronic pain syndrome Degeneration of lumbar or lumbosacral in tervertebral disc Opioid type dependence, continuous (H) Opioid type dependence, continuous documented in this encounter Care Teams Griddle Cook Relationship Specialty Start Date End Date Marlee Coles MD PCP - General 02/10/15 05/18/21 [place] [address] [address] [place] [address] Tony Gray MD Referring Physician Orthopedics 10/01/14 Conner Harper MD MD Orthopedics 10/01/[address] [place], [place] [address] documented as of this encounter
--- OUTSIDE RECORDS SUMMARY | 2022-04-22 09:44 | XMS_ITS | Encounter Summary ---
:1955 Author Organization [place] Address [address] [facility] [place] [address] Care Team Providers Name Role Phone Tony Gray MD Unavailable Conner Harper MD Unavailable Marlee Coles MD Primary Care Provider [phone] Marivel Cavazos PA-C Unavailable Zhang Masterson Primary [...] Pain & [place] [address] [place], [place] [address] (Wo rk) documented as of this encounter Visit Diagnoses Not on filedocumented in this encounter Care Teams Stevedoring Supervisor Relationship Specialty Start Date End Date Marlee Coles PCP - General 02/10/15 [place] [address] [address] [place], [place] [phone] Zahng Masterson PCP - General Family Medicine 05/19/[address] [place] [address] Tony Gray MD Referring Physician Orthopedics 10/01/14 Conner Harper MD MD Orthopedics 10/01/[address] [place] [address] Marivel Cavazos, Assigned Surgical Provider [address] [place], [place] [phone] documented as of this encounter
--- OUTSIDE RECORDS SUMMARY | 2022-04-22 09:44 | XMS_ITS | Encounter Summary ---
:1955 Author Organization [place] Address [address] [place] [address] Care Team Providers Name Role Phone Tony Gray MD Unavailable Conner Harper MD Unavailable Marlee Coles MD Primary Care Provider Encounter Details Date Type Department Care Team Description 04/19/2017 Records - [facility] CONVERSION Provider, Historica l Social History Tobacco Use Types Packs/Day Years Used Date Smoking Tobacco: Never Assessed Sex Assigned at Date Recorded Not on file documented as of this encounter Plan of Treatment Upcoming Encounters Date Type Specialty Care Team Description 04/26/2022 Virtual Visit Pain & [place] [address] [place], [place] [address] (Wo rk) documented as of this encounter Visit Diagnoses Not on filedocumented in this encounter Care Teams Oncology Rn Relationship Specialty Start Date End Date Marlee Coles MD PCP - General 02/10/15 05/18/21 [place] [address] [address] [address] Tony Gray MD Referring Physician Orthopedics 10/01/14 Conner Harper MD MD Orthopedics 10/01/14 [facility] [place] [address] documented as of this encounter
--- OUTSIDE RECORDS SUMMARY | 2022-04-22 09:44 | XMS_ITS | Encounter Summary ---
:1955 Author Organization [place] Address [address] [facility] [place] [address] Care Team Providers Name Role Phone Tony [...] Pain & [place] [address] [place], [place] [address] (Wo rk) documented as of this encounter Visit Diagnoses Not on filedocumented in this encounter Care Teams Wheelchair Driver Relationship Specialty Start Date End Date Marlee Coles PCP - General 02/10/15 [place] [address] [place], [place] [phone] Zhang Masterson PCP - General Family Medicine 05/19/[address] [place] [address] Tony Gray MD Referring Physician Orthopedics 10/01/14 Conner Harper MD MD Orthopedics 10/01/[address] [place] [address] Marivel Cavazos, Assigned Surgical Provider [address] [place] [place], [place] [phone] documented as of this encounter
--- OUTSIDE RECORDS SUMMARY | 2022-04-22 09:44 | XMS_ITS | Encounter Summary ---
:1955 Author Organization [place] Address [address] [facility] [place] [address] Care Team Providers Name Role Phone Tony Gray MD Unavailable Conner Harper MD Unavailable Marlee Coles MD Primary Care Provider [phone] Reason for Visit Reason Comments Follow Up Encounter Details Date Type Department Care Team Description 06/07/2018 Hospital Encounter [facility] Codie Cavazos [place] pain syndrome; Pain Center Marivel Hernadez PA-C Degeneration of lumbar or lumbosacral in tervertebral disc; [address] [facility] [address] Bilateral lumbar radiculopathy; [place] [address] [place], [place] Opioid type dependence, continuous (H) 101 [address] [place], [place] [phone] [address] (Work) [phone] Social History Tobacco Use Types Packs/Day Years [...] 99.8 kg (220 lb) 06/07/2018 10:58 AM ELECTRONICS MANUFACTURER Height 170.2 cm (5' 7) 06/07/2018 10:58 AM ELECTRONICS MANUFACTURER Body Mass Index 34.46 06/07/2018 10:58 AM ELECTRONICS MANUFACTURER documented in this encounter Medications at Time [...] of 6- constant, sharp back pain. F5 TRONICS MANUFACTURER Marivel Cavazos PA-C - 06/07/2018 10:49 AM CST PAIN [...] the spring (October). He arrived back from [place] this morning and will stay for 7 [...] winter as he plans to return to [place] this summer and winter in [place] in the winter and we discuss most [...] difficulty rising from a seated position. Opioid [place] Precautions: UDS/Swab- Collected 06/07/18, results pending Consent - 08/24/17 Agreement- 08/24/17 Pharmacy- as documented THUMB SEWER- MNPMP reviewed 06/07/18 as expected Count- n/a [...] the spring as he is wintering in [place] for 6 months. I have advised him to establish care for PCP and pain management while he is away. He has not yet so he will return in 2 months here for follow-up. He may be interested in medical cannabis trial with goal of reducing opioids but not at this time as he plans to return to [place]. He has not had adequate pain control [...] bedtime as needed - refill sent to [facility]. You may continue over the counter ibuprofen [...] to age, race, gender, socioeconomic status or mu-ism affiliation. Will wait to schedule with Dr. Loyola for SCS trial in the spring when you are here for several months. Follow-up in 8 weeks Marivel Cavazos PA-C Health [facility] Pain Center [address] [facility] [place] [address] TRONICS MANUFACTURER documented in this encounter Plan of Treatment Upcoming Encounters Date Type Specialty Care Team Description 04/26/2022 Virtual Visit Pain & [place] [address] [place], [place] [address] (Wo rk) documented as of this encounter Procedures Procedure Name Priority Date/Time Associated Comments Diagnosis LABORATORY Routine 06/07/2018 3:43 PM Results f or this MISCELLANEOUS ORDER ELECTRONICS MANUFACTURER procedur e are in the results section. [facility] MISCELLANEOUS Routine 06/07/2018 3:43 PM Res ults for this TEST ELECTRONICS MANUFACTURER procedure are i n the results section. documented in this encounter Results [facility] Miscellaneous Test (06/07/2018 3:43 PM ELECTRONICS MANUFACTURER) [facility] Method Time Signature [facility] SEE NOTE 06/09/2018 [facility] Miscellaneous 9:27 PM ELECTRONICS MANUFACTURER LABORATORIES Test Comment: Test name ? Result [...] Tapentadol (cutoff 100 ng/mL) ?Not Detected ? Jpmrwlrbrd-u-Fxrn (cutoff 200 ng/mL) ?Not Detected ? Methadone [...] Alprazolam (cutoff 40 ng/mL) ?Not Detected ? Szxcc-YG-Mukkykiizd (cutoff 20 ng/mL) ?Not Detected ? Clonazepam [...] and its performa nce characteristics determined by [facility]. The U.S . Food and Drug Administration has not approved or clear ed this test; however, FDA clearance or approval is not currently r equired for clinical use. The results are not intended to be used as the sole means for clinical diagnosis or patient management decisions. EER Pain Mgt Drug Chew, Manager Psychiatry/EMITU ?See Note ? Access [employer] Enhanced Report using either link below: -Direct access: [email or web address] -Enter Username, Password: [email or web address] Username: [email or web address] Password: [email or web address] Performed by [employer], [address] [place] [phone] www.[employer], Da Thakur MD, Lab. Director Specimen Anatomical Collection Method Collection Time Receive d Time (Source) Location / / Volume Laterality Urine specimen Non-blood 06/07/2018 3:43 PM 018 (specimen) Collection / ELECTRONICS MANUFACTURER 11:54 PM ELECTRONICS MANUFACTURER Unknown Narrative LS [facility] - 06/09/2018 9:27 PM ELECTRONICS MANUFACTURER ?? Please call [facility] at [phone] for News Clipping Cutter consultation or assistance with interpre tation if needed. Marivel Cavazos PA-C LAB - BLOOD ORDERABLES Performing Organization Address City/State/ZIP Code Phon e Number [facility] [place], [place] [phone] [place] [phone] [phone] [facility] : Laboratory Miscellaneous Order (06/07/2018 3:43 PM ELECTRONICS MANUFACTURER) Component Value Ref Test Analysis Performed At [facility] Range Method Time Signature Miscellaneous Chemistry 06/10/2018 HEALTH Test Dept. Reference Test 10:08 AM [facility] Test Name Pain Management 06/10/2018 [facility] Drug Panel,Mass 10:08 AM [facility] Spec/EMIT [facility] Performing Lab [facility] 06/10/[address]AL [address] [place] [address] 10:08 [place] [address] [facility] See Scanned See [facility] 06/10/2018 [facility] Result Miscellaneous 10:08 AM LABORATORIES Test for results ELECTRONICS MANUFACTURER Specimen Anatomical Collection Method Collection Time Receive d Time (Source) Location / / Volume Laterality Urine specimen Non-blood 06/07/2018 3:43 PM 018 (specimen) Collection / ELECTRONICS MANUFACTURER 10:20 AM ELECTRONICS MANUFACTURER Unknown Marivel Cavazos PA-C LAB - BLOOD ORDERABLES Performing Organization Address City/State/ZIP Code Phon e Number [facility] [place], [place] [phone] [address] [facility] [phone] [address] [facility] [address] [place] [address] documented in this encounter Visit Diagnoses Diagnosis Chronic pain syndrome Degeneration of lumbar or lumbosacral in tervertebral disc Bilateral lumbar radiculopathy Opioid type dependence, continuous (H) Opioid type dependence, continuous documented in this encounter Care Teams Paint Laboratory Technician Relationship Specialty Start Date End Date Marlee Coles MD PCP - General 02/10/15 05/18/21 [place] [address] [address] [facility] [address] [place], [place] [phone] Tony Gray MD Referring Physician Orthopedics 10/01/14 Conner Harper MD MD Orthopedics 10/01/[address] [place], [place] [address] documented as of this encounter
--- OUTSIDE RECORDS SUMMARY | 2022-04-22 09:44 | XMS_ITS | Encounter Summary ---
:1955 Author Organization [place] Address [address] [facility] [place] [address] Care Team Providers Name Role Phone Tony Gray MD Unavailable Conner Harper MD Unavailable Marlee Coles MD Primary Care Provider [phone] Reason for Visit Reason Comments Medication Refill Encounter Details Date Type Department Care Team Description 04/10/2017 Communication - [facility] [place] Hawa Jiang Medic ation Refill [facility] A, RN [address] [facility] [address] [place] [address] Social History Tobacco Use Types Packs/Day Years Used Date Smoking Tobacco: Never Assessed Sex Assigned at Date Recorded Not on file documented as of this encounter Plan of Treatment Upcoming Encounters Date Type Specialty Care Team Description 04/26/2022 Virtual Visit Pain & [place] [address] [place], [place] [address] (Wo rk) documented as of this encounter Visit Diagnoses Not on filedocumented in this encounter Care Teams Manager Packaging Relationship Specialty Start Date End Date Marlee Coles MD PCP - General 02/10/15 05/18/21 [place] [address] [address] [facility] [address] [place], [place] [phone] Tony Gray MD Referring Physician Orthopedics 10/01/14 Conner Harper MD MD Orthopedics 10/01/14 [facility] [facility] [address] [place] [address] documented as of this encounter
--- OUTSIDE RECORDS SUMMARY | 2022-04-22 09:44 | XMS_ITS | Encounter Summary ---
:1955 Author Organization [place] Address [address] [facility] [place] [address] Care Team Providers Name Role Phone Tony Gray MD Unavailable Conner Harper MD Unavailable Marlee Coles MD Primary Care Provider [phone] Marivel Cavazos PA-C Unavailable Zhang Masterson Primary [...] Pain & [place] [address] [place], [place] [address] (Wo rk) documented as of this encounter Visit Diagnoses Not on filedocumented in this encounter Care Teams Water Treatment Plant Supervisor Relationship Specialty Start Date End Date Marlee Coles PCP - General 02/10/15 [place] [address] [address] [place], [place] [phone] Zhang Masterson PCP - General Family Medicine 05/19/[address] [place] [address] Tony Gray MD Referring Physician Orthopedics 10/01/14 Conner Harper MD MD Orthopedics 10/01/[address] [place] [address] Marivel Cavazos, Assigned Surgical Provider [address] [place], [place] [phone] documented as of this encounter
--- OUTSIDE RECORDS SUMMARY | 2022-04-22 09:44 | XMS_ITS | Encounter Summary ---
:1955 Author Organization [place] Address [address] [place] [address] Care Team Providers Name Role Phone Tony Gray MD Unavailable Conner Harper MD Unavailable Marlee Coles MD Primary Care Provider [phone] Reason for Visit Reason Comments Back Pain Hand Pain Encounter Details Date Type Department Care Team Description 11/28/[address] [facility] Codie Cavazos [place] pain syndrome; Pain Center Marivel Hernadez PA-C Opioid type dependence, continuous (H); [address] [facility] [address] Degeneration of lumbar or lumbosacral in tervertebral disc; [place] [address] [place], [place] Bilateral linda mbar radiculopathy 101 [address] [place], [place] [phone] [address] (Work) [phone] Social History Tobacco Use Types Packs/Day Years [...] Cavazos PA-C Service: -- Author Type: Physician Garment Sorter Filed: 11/28/2017 9:32 PM Date of Service: 11/28/2017 11:00 AM Status: Signed Proof Press Operator: Marivel Cavazos PA-C (Physician Garment Sorter) PAIN CENTER PROGRESS NOTE Subjective: Tremaine Plunkett [...] work as he will winter again in [place] and isn't sure work comp will approve it even with his manager solar. Review of Systems Constitutional: Sleep disturbance due [...] difficulty rising from a seated position. Opioid [place] Precautions: UDS/Swab- 04/12/17 as expected. 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 He has not [...] Follow-up in 4 weeks Marivel Cavazos PA-C [facility] [address] [facility] [place] [address] documented in this encounter Miscellaneous Notes Addendum Note - Historical Provider - 11/28/2017 11:59 PM CDT Addendum Note by Latoya Davila CMA at 11/28/2017 11:59 PM Author: Latoya Davila CMA Service: -- Author Type: Salt Plant Operator Filed: 12/13/2017 10:40 AM Date of Service: 11/28/2017 11:59 PM Status: Signed Proof Press Operator: Latoya Davila CMA (Salt Plant Operator) Encounter addended by: Latoya Davila CMA on: 12/13/2017 10:40 AM
Actions taken: Actions taken from a BestPractice Advisory, Charge Capture section accepted documented in this encounter Plan of Treatment Upcoming Encounters Date Type Specialty Care Team Description 04/26/2022 Virtual Visit Pain & [place] [address] [place], [place] [address] (Wo rk) documented as of this encounter Visit Diagnoses Diagnosis Chronic pain syndrome Opioid type dependence, continuous (H) Opioid type dependence, continuous Degeneration of lumbar or lumbosacral in tervertebral disc Bilateral lumbar radiculopathy documented in this encounter Care Teams Full Time Paramedic Relationship Specialty Start Date End Date Marlee Coles MD PCP - General 02/10/15 05/18/21 [facility] [place] [address] [address] [address] Tony Gray MD Referring Physician Orthopedics 10/01/14 Conner Harper MD MD Orthopedics 10/01/14 [address] [facility] [address] [place], [place] [address] documented as of this encounter
--- OUTSIDE RECORDS SUMMARY | 2022-04-22 09:44 | XMS_ITS | Encounter Summary ---
:1955 Author Organization [place] Address [address] [place] [address] Care Team Providers Name Role Phone Tony Gray MD Unavailable Conner Harper MD Unavailable Marlee Coles MD Primary Care Provider [phone] Reason for Visit Reason Comments Medication Refill Encounter Details Date Type Department Care Team Description 08/30/2018 Communication - [facility] Pain [facility] Jessica RN [address] [facility] [address] [place] [address] Social History Tobacco Use Types [...] Marivel's response as written. Reports he takes Watts 2 AM, 2 PM and 2 HS. On the days when he has less pain he takes 2 tabs in AM and 2 at HS. Telephone Encounter - Marivel Cavazos PA-C - 08/31/2018 7:01 AM CDT I cannot give him a 30 day RX as he missed his appointment and will be outside the 3 month period which is the guideline from CDC for prescribing. We discussed these concerns when [...] weather. Is requesting 1 month script of Watts and Robaxin and will plan to be [...] Pain & [place] [address] [facility] [address] [place], [place] [address] (Wo rk) documented as of this encounter Visit Diagnoses Diagnosis Chronic pain syndrome documented in this encounter Care Teams Cut Off Man Relationship Specialty Start Date End Date Marlee Coles MD PCP - General 02/10/15 05/18/21 [place] [address] [address] [address] Tony Gray MD Referring Physician Orthopedics 10/01/14 Conner Harper MD MD Orthopedics 10/01/14 [address] [facility] [address] [place], [place] [phone] documented as of this encounter
--- OUTSIDE RECORDS SUMMARY | 2022-04-22 09:45 | XMS_ITS | Encounter Summary ---
:1955 Author Organization [place] Address [address] [facility] [place] [address] Care Team Providers Name Role Phone Tony Gray MD Unavailable Conner Harper MD Unavailable Marlee Coles MD Primary Care Provider [phone] Encounter Details Date Type Department Care Team Description 08/18/2016 [facility] B, PA-C [address] [place] [address] [place] [address] [place], [place] [phone] (Wo rk) [address] [phone] Social History Tobacco Use Types Packs/Day Years Used Date Smoking Tobacco: Never Assessed Sex Assigned at Date Recorded Not on file documented as of this encounter Plan of Treatment Upcoming Encounters Date Type Specialty Care Team Description 04/26/2022 Virtual Visit Pain & [place] [address] [place], [place] [address] (Wo rk) documented as of this encounter Visit Diagnoses Not on filedocumented in this encounter Care Teams Social Sciences Department Chair Relationship Specialty Start Date End Date Marlee Coles MD PCP - General 02/10/15 05/18/21 [facility] [place] [address] [address] [place] [address] Tony Gray MD Referring Physician Orthopedics 10/01/14 Conner Harper MD MD Orthopedics 10/01/14 [address] [facility] [address] [place], [place] [address] documented as of this encounter
--- OUTSIDE RECORDS SUMMARY | 2022-04-22 09:45 | XMS_ITS | Encounter Summary ---
:1955 Author Organization [place] Address [address] [facility] [place] [address] Care Team Providers Name Role Phone Tony Gray MD Unavailable Conner Harper MD Unavailable Marlee Coles MD Primary Care Provider [phone] Encounter Details Date Type Department Care Team Description 10/21/2016 Communication - [facility] Provider, [facility] [place] [facility] Historical lumbar or [address] interverte[address] al disc [address] [place] [address] Social History Tobacco Use Types Packs/Day Years Used Date Smoking Tobacco: Never Assessed Sex Assigned at Date Recorded Not on file documented as of this encounter Plan of Treatment Upcoming Encounters Date Type Specialty Care Team Description 04/26/2022 Virtual Visit Pain & [place] [address] [place], [place] [address] (Wo rk) documented as of this encounter Visit Diagnoses Diagnosis Degeneration of lumbar or lumbosacral in tervertebral disc documented in this encounter Care Teams Sole Skiver Relationship Specialty Start Date End Date Marlee Coles MD PCP - General 02/10/15 05/18/21 [place] [address] [address] [phone] Tony Gray MD Referring Physician Orthopedics 10/01/14 Conner Harper MD MD Orthopedics 10/01/14 [address] [facility] [address] [place] [address] documented as of this encounter
--- OUTSIDE RECORDS SUMMARY | 2022-04-22 09:45 | XMS_ITS | Encounter Summary ---
:1955 Author Organization [place] Address [address] [facility] [place] [address] Care Team Providers Name Role Phone Tony Gray MD Unavailable Conner Harper MD Unavailable Marlee Coles MD Primary Care Provider [phone] Reason for Visit Reason Comments Back Pain Encounter Details Date Type Department Care Team Description 11/01/2016 Hospital Encounter [facility] Codie Cavazos [place] pain syndrome; Pain Center Marivel Hernadez PA-C Degeneration of lumbar or lumbosacral in tervertebral disc; [address] [facility] [address] Opioid dependence, continuous (H) [place] [address] [place], [place] [address] [place], [place] [phone] [address] (Work) [phone] Social History Tobacco Use Types Packs/Day Years [...] - - Weight 99.8 kg (220 lb) 11/01/2016 10:28 AM CDT Height 170.2 cm (5' 7) 11/01/2016 10:28 AM CDT Body Mass Index 34.46 11/01/2016 10:28 AM CDT documented in this encounter [...] encounter Progress Notes Marivel Cavazos PA-C - 11/01/2016 10:09 AM CDT PAIN CENTER PROGRESS NOTE Subjective: [...] syndrome 2. Lumbar Disc Degeneration 3. Opioid dependence, continuous Pain location and description: 8/10 constant sharp, pounding pain in mid and low back, buttock, and bilateral legs. Function rated 8. Last visit pain rated 4/10. Radiation of pain: Buttocks bilaterally, lower legs. [...] constipation, drowsiness, dizziness. Current treatment efficacy: Poor. Pain rated higher with reduction in medication (see below). Statessome days better and some days worse. Current treatment compliance: Good; denies self-escalation of doses and no early refill requests. UDS appropriate. Keeps appointment follow-ups with pain center. Does walking and stretching exercise inthe morning. He reports his medication changes have not gone well. Per last discussion, the following recommendations: Peer to peer review with Dr. Mayorga: [...] or Cymbalta to assist with pain. He was agreeable to the recommendations. He states he has not filled Amitriptyline in many months and is no longer taking. He is unsure if this has worsened his pain or sleep as he has had more pain secondary to his knee surgery. He will try to stay off it for now. He is taking Tylenol 500 mg QID Prn and started ASA 325 mg daily after surgery. He is taking Vicodin 10/325 mg 0730, noon, and 2200. He states he takes ibuprofen 200 4 tabs in mid morning and 6 tabs at lunch, 4-6 at night in between dosing as pain is so severe. He did try medication reduction to Opana 10 mg every [address] in [address] of Tramadol. He called nurse line on 10/21/16 stating that the new dose of Opana is not helping the pain at all and also the change to hydrocodone from tramadol is not at all helpful. Pain was controlled at 4-5/10 and now is 8/10. He states he has tried Ibuprofen 800 mg TID OTC which is unhelpful. He states he feels more pain in lower back now that his knee pain is resolved. He denies withdrawal symptoms. States reports he is more crabby due to pain. He is not doing much yardwork, can't push a lawnmower. He ishaving son do his lawn care. He states he is not walking as much as he was doing and difficult to sleep due to pain. He states harder to get to sleep and then only sleeps a few hours until he has to move. He has not restarted amitriptyline. He is still using the synera patch what he has left. He has not tried OTC options. He is using ice 4-5 times per day, morning time the worst. Review of Systems Constitutional: Sleep disturbance due [...] psychoses, suicidal ideation, substance use/abuse. Objective: Vitals: 11/01/16 1028 BP: 138/74 Pulse: (!) 58 Resp: 16 Weight: 220 lb (99.8 kg) Height: 5' 7 (1.702 m) PainSc: 8 Physical Exam Constitutional- General appearance: Well developed, uncomfortable, overweight, and appearance reflects stated age. Changes positions between sitting and standing for visit. Presents alone. Psychiatric- Judgment and insight: [...] difficulty rising from a seated position. 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 Assessment: [...] in reviewing educational materials today. He did a ttempt reduction in opioids to 90 MME, reports he is poorly tolerating pain levels, mood changes, sleep and activity reduction. He is requesting to return back to Opana 15 mg every 12 hours and continue Vicodin. He is unsure if Vicodin more helpful than Tramdol, but both regimens would give equivalentMME of 120. He has failed fentanyl, methadone, oxycontin, morphine and that leaves limited choices such as Hysingla. He may be appropriate for an MTM visit to review pain medications with our pharmacist. Plan: Increase Opana 15 mg every 12 hours. Continue Vicodin 10/325 mg 3 times a day as needed for breakthrough pain. Continue Methocarbamol 500 mg at night as needed You may continue over the counter ibuprofen with food up to 2400 mg daily or tylenol up to 3,000 mg daily (remember to calculate each Vicodin tablet has 325 mg of tylenol). Patient is off Amitriptyline at night; if [...] in pursuing at this time. Follow-up in 4 weeks Marivel Cavazos PA-C [facility] [address] [facility] [place] [address] documented in this encounter Plan of Treatment Upcoming Encounters Date Type Specialty Care Team Description 04/26/2022 Virtual Visit Pain & [place] [address] [place], [place] [address] (Wo rk) documented as of this encounter Visit Diagnoses Diagnosis Chronic pain syndrome Degeneration of lumbar or lumbosacral in tervertebral disc Opioid dependence, continuous (H) Opioid type dependence, continuous documented in this encounter Care Teams Counseling Specialist Relationship Specialty Start Date End Date Marlee Coles MD PCP - General 02/10/15 05/18/21 [place] [address] [place], [place] [address] Tony Gray MD Referring Physician Orthopedics 10/01/14 Conner Harper MD MD Orthopedics 10/01/[address] [place], [place] [address] documented as of this encounter
--- OUTSIDE RECORDS SUMMARY | 2022-04-22 09:45 | XMS_ITS | Encounter Summary ---
:1955 Author Organization [place] Address [address] [place] [address] Care Team Providers Name Role Phone Tony Gray MD Unavailable Conner Harper MD Unavailable Marlee Coles MD Primary Care Provider Reason for Visit Reason Comments Other peer review med review due b y 08/23/16 Encounter Details Date Type Department Care Team Description 08/05/2016 [facility] Sharona Leach (peer review [facility] Roxann, RN med review due by [address] [facility] 08/23/16) [place] [address] [place] [address] Social History Tobacco Use Types Packs/Day Years Used Date Smoking Tobacco: Never Assessed Sex Assigned at Date Recorded Not on file documented as of this encounter Plan of Treatment Upcoming Encounters Date Type Specialty Care Team Description 04/26/2022 Virtual Visit Pain & [place] [address] [place], [place] [address] (Wo rk) documented as of this encounter Visit Diagnoses Not on filedocumented in this encounter Care Teams Combat Control Manager Relationship Specialty Start Date End Date Marlee Coles MD PCP - General 02/10/15 05/18/21 [place] [address] [address] [facility] [address] [place] [address] Tony Gray MD Referring Physician Orthopedics 10/01/14 Conner Harper MD MD Orthopedics 10/01/14 [address] [facility] [address] [place], [place] [address] documented as of this encounter
--- OUTSIDE RECORDS SUMMARY | 2022-04-22 09:45 | XMS_ITS | Encounter Summary ---
:1955 Author Organization [place] Address [address] [place] [address] Care Team Providers Name Role Phone Tony Gray MD Unavailable Conner Harper MD Unavailable Marlee Coles MD Primary Care Provider Reason for Visit Reason Comments Medication Refill Encounter Details Date Type Department Care Team Description 08/24/2016 Communication - Health [place] Dirk, Medicat ion Refill [facility] Marivel Hernadez PA-C [address] [place] [address] [place] [place], [place] [address] [place], [place] [phone] (Work) [phone] Social History Tobacco Use Types Packs/Day Years Used Date Smoking Tobacco: Never Assessed Sex Assigned at Date Recorded Not on file documented as of this encounter Plan of Treatment Upcoming Encounters Date Type Specialty Care Team Description 04/26/2022 Virtual Visit Pain & [place] [address] [place], [place] [address] (Wo rk) documented as of this encounter Visit Diagnoses Diagnosis Degeneration of lumbar or lumbosacral in tervertebral disc documented in this encounter Care Teams General Merchandise Manager Relationship Specialty Start Date End Date Marlee Coles MD PCP - General 02/10/15 05/18/21 [place] [address] [address] [place], [place] [address] Tony Gray MD Referring Physician Orthopedics 10/01/14 Conner Harper MD MD Orthopedics 10/01/14 [facility] [place], [place] [address] [place], [place] [address] documented as of this encounter
--- OUTSIDE RECORDS SUMMARY | 2022-04-22 09:45 | XMS_ITS | Encounter Summary ---
:1955 Author Organization [place] Address [address] [place] [address] Care Team Providers Name Role Phone Tony Gray MD Unavailable Conner Harper MD Unavailable Marlee Coles MD Primary Care Provider Reason for Visit Reason Comments Other peer to peer review Encounter Details Date Type Department Care Team Description 08/18/2016 [facility] MATT Hernadez [address] [place] [place] [address] [place], [place] [phone] (Wo rk) [address] [phone] Social History Tobacco Use Types Packs/Day Years [...] pain. Will sent summary letter to follow. IGERATING OILER documented in this encounter Plan of Treatment Upcoming Encounters Date Type Specialty Care Team Description 04/26/2022 Virtual Visit Pain & [place] [address] [place], [place] [address] (Wo rk) documented as of this encounter Visit Diagnoses Not on filedocumented in this encounter Care Teams Deburring And Tooling Machine Operator Relationship Specialty Start Date End Date Marlee Coles MD PCP - General 02/10/15 05/18/21 [facility] [place] [address] [place], [place] [phone] Tony Gray MD Referring Physician Orthopedics 10/01/14 Conner Harper MD MD Orthopedics 10/01/[address] [facility] [address] [place], [place] [address] documented as of this encounter
--- OUTSIDE RECORDS SUMMARY | 2022-04-22 09:45 | XMS_ITS | Encounter Summary ---
:1955 Author Organization [place] Address [address] [facility] [place] [address] Care Team Providers Name Role Phone Tony Gray MD Unavailable Conner Harper MD Unavailable Marlee Coles MD Primary Care Provider [phone] Reason for Visit Reason Comments Back Pain Encounter Details Date Type Department Care Team Description 01/25/2017 Hospital Encounter [facility] Iain Cavazos [place] dependence, continuous (H); Pain Center Marivel Hernadez PA-C Degeneration of lumbar or lumbosacral in tervertebral disc; [address] [facility] [address] Lumbar radiculopathy, chronic; [place] [address] [place], [place] Degeneration of thoracic intervertebral disc; [phone] Chronic pain syndrome [place], [place] [phone] [address] (Work) [phone] Social History Tobacco Use Types Packs/Day Years [...] - - Weight 99.8 kg (220 lb) 01/25/2017 10:00 AM CDT Height 170.2 cm (5' 7) 01/25/2017 10:00 AM CDT Body Mass Index 34.46 01/25/2017 10:00 AM CDT documented in this encounter Medications [...] encounter Progress Notes Marivel Cavazos PA-C - 01/25/2017 9:54 AM CDT PAIN CENTER PROGRESS NOTE Subjective: Tremaine Plunkett is a 61 y.o. male who presents for evaluation of mid and low back pain. He has thoracic and lumbar degeneration status post work injury. He has had lumbar epidural steroid injection andlumbar radiofrequency which was effective for pain relief. He did not have relief from thoracic epidural steroid injection. Major issues: 1. Opioid dependence, continuous 2. Lumbar Disc Degeneration 3. Lumbar radiculopathy, chronic 4. Degeneration of thoracic intervertebral disc 5. Chronic pain syndrome Pain location and description: 5/10 constant sharp [...] stretching exercise in the morning. He has continued Opana 15 mg every 12 hours and reports pain levels averaging 5- 6/10. This is much more tolerable for him than last month. He denies side effects on increase. He is taking Vicodin 10/325 mg 0730, 1200, and 2200. Discuss that Opana ER is removed from the market and he will not be able to refill. He has fentanyl, oxycodone, and methadone allergies, MSER caused itching. Denies trials of Nucynta ER or Hysingla for extended release. He started Lyrica 75 mg at bedtime and reports he felt he couldn't breathe and felt like he was in aclosed room and only took 1 dose at night. He states he felt he wanted to kill himself. He otherwisedenies suicidal ideation. He states he took at 2200 and by 0100 he woke up and felt this way. [place] he had to run a marathon but couldn't breathe. He states he didn't take again and has the rest at home. He is unsure what to do with it. He states he had recent annual physical with PMD and was told everything is perfect with his health.They discussed chronic opiate use and risks. He discussed medical cannabis with his primary. He states he smoked it 45 years ago but no recent use. He wanted to ask about this today. He also asks about wintering in [place] for May through September. He will be gone at least 3 months. We discuss policy of seeing patients on opiates every 2 months, so he would need to establish carethere if he plans to winter for an extended period of time. He is advised to call now to find out about a major health system near his location that offers pain management and if they would accept him as a patient and if records needed, etc. Review of Systems Constitutional: Sleep disturbance due [...] psychoses, suicidal ideation, substance use/abuse. Objective: Vitals: 01/25/17 1000 BP: 143/84 Pulse: 63 Resp: 16 Weight: 220 lb (99.8 kg) [...] difficulty rising from a seated position. Opioid [place] Precautions: UDS/Swab- 03/29/16 as expected Consent due Agreement- 07/21/16 Pharmacy- as documented HYDROGEN POWER PLANT ENGINEER- MNPMP reviewed 01/25/17 as expected Count- n/a Psychological evaluation n/a [...] Denies trials of Cymbalta, amantadine or namenda. He is educated how to dispose of Lyrica. Also could cons ider SCS trial but patient not interested in reviewing educational materials today. He did attempt reduction in opioids to 90 MME, reports he was poorly tolerating pain levels, mood changes, sleep and activity reduction. He is interested in medical cannabis discussion today with goal of reducing opioids. He is given educational materials today to read and not registering yet. He has to discontinue Opana ER due to discontinuing on market and is advised for his pain to trial Nucynta ER as it also helps neuropathic pain. He is educated on this medication in detail including possible risks and side effects. Plan: Discontinue Opana. Start Nucynta (tapentadol) ER 150 mg every 12 hours. Continue Vicodin 10/325 [...] eat fresh fruits/vegetables, fiber in your diet. Discontinue Lyrica due to side effects. Dispose of medication at police station near your home. Patient is interested in discussing medical cannabis. The interest in medical cannabis stems from chronic pain relief with less opioids. Patient was educated about the difference between medical cabbabis and recreational marijuana. The patient does qualify. Patient was educated that currently marijuana remains a Schedule I drug according to the Drug Enforcement Agency ([place]) a branch of the US Department of Justice. The [place] license that allows the prescribing of opioid medication does not allow for prescribing of a Schedule I drug. Schedule I drugs, substances, or chemicals are defined as drugs with no currently accepted medical use and a high potential for abuse. Schedule I drugs are the most dangerous drugs of all the drug schedules with potentially severe psychological or physical dependence. Some examples of Schedule I drugs are: heroin, lysergic acid diethylamide (LSD), marijuana (cannabis), 3,4-methylenedioxymethamphetamine (ecstasy), methampheta mine. If any Schedule I drugs are found in a random Urine Drug Screen while using medical cannabis, a chemical dependency assessment will be ordered and re- certification in the cannabis program will bedenied. Prior to this provider certifying the patient, a diagnostic assessment will be completed through [facility] psychotherapist to evaluate for any underlying mood or chemical disorders that may impact the success of this treatment. Patient was educated this treatment will not be covered by insurance, workers comp may be the exception and you will need to work with your mergers and acquisitions attorney on this. The Pain Center will not advocate for financial coverage of this drug. This is not a treatment that will be managed through the Pain Center and follow-up with dispensaries would be expected and monitored. Your pain provider expects to have communication with the dispensary as needed. If you are certified by another provider, we expect that you notify our Pain Center and bring appropriate documentation. We expect patients to choose the formulation at the dispensary that is lowest in THC and highest in CBD. We would expect the dose of the opioids to reduce by at least half if the patient is using medical cannabis. Pain control, daily function, and reduction in oral medications would be assessed regularly. Please review [facility] website for further information. Important information and warnings about using medical cannabis: *Use of medical cannabis products is experimental *Common side effects include dizziness, fatigue, dry mouth, lightheadedness, drowsiness, nausea *Tell all your health manager care management about the medical cannabis you are using *The following groups are at increased risk of harm from use - those under 18, women who are or breast-feeding, persons with a personal or family history of psychotic disorder *Risks for use by persons with serious heart or liver disease *Do not drive, operate machinery, or do work that could harm people under the influence of medical cannabis *Keep medication secure and in their original containers *Do not use medical cannabis where it is illegal *Do not give or sell to others medical cannabis that you purchase *Risk of dependence and addiction Follow-up in 4 weeks Marivel Cavazos PA-C [facility] [address] [place] [address] documented in this encounter Miscellaneous Notes Addendum Note - Historical Provider - 01/25/2017 11:59 PM CDT Addendum Note by Danielle Mendez CMA at 01/25/2017 11:59 PM Author: Danielle Mendez CMA Service: -- Author Type: Teller Coordinator Filed: 05/10/2017 8:34 AM Date of Service: 01/25/2017 11:59 PM Status: Signed Chucking Lathe Operator: Danielle Mendez CMA (Teller Coordinator) Encounter addended by: Danielle Mendez CMA on: 05/10/2017 8:34 AM
Actions taken: Charge Capture section accepted documented in this encounter Plan of Treatment Upcoming Encounters Date Type Specialty Care Team Description 04/26/2022 Virtual Visit Pain & [place] [address] [place], [place] [address] (Wo rk) documented as of this encounter Visit Diagnoses Diagnosis Opioid dependence, continuous (H) Opioid type dependence, continuous Degeneration of lumbar or lumbosacral in tervertebral disc Lumbar radiculopathy, chronic Thoracic or lumbosacral neuritis or radi culitis, unspecified Degeneration of thoracic intervertebral disc Degeneration of thoracic or thoracolumba r intervertebral disc Chronic pain syndrome documented in this encounter Care Teams Soap Chipper Relationship Specialty Start Date End Date Marlee Coles MD PCP - General 02/10/15 05/18/21 [place] [address] [place], [place] [address] Tony Gray MD Referring Physician Orthopedics 10/01/14 Conner Harper MD MD Orthopedics 10/01/[address] [place], [place] [address] documented as of this encounter
--- OUTSIDE RECORDS SUMMARY | 2022-04-22 09:45 | XMS_ITS | Encounter Summary ---
:1955 Author Organization [place] Address [address] [place] [address] Care Team Providers Name Role Phone Tony Gray MD Unavailable Conner Harper MD Unavailable Marlee Coles MD Primary Care Provider [phone] Reason for Visit Reason Comments Back Pain Encounter Details Date Type Department Care Team Description 03/01/2017 Hospital Encounter [facility] Codie Cavazos [place] pain syndrome; Pain Center Marivel Hernadez PA-C Opioid type dependence, continuous (H); [address] [facility] [address] Degeneration of thoracic intervertebral disc; [place] Degeneration of lumbar or lumbosacral intervertebral disc; 101 [address] Bilateral lumbar radiculopathy; [place], [place] [phone] [place], drug [phone] (Work) [phone] Social History Tobacco Use Types Packs/Day Years [...] that. He states he is wintering in [place] with house already rented but he is [...] difficulty rising from a seated position. Opioid [place] Precautions: UDS/Swab- 03/29/16 as expected Consent due Agreement- 07/21/16 Pharmacy- as documented DEVELOPMENT ARCHITECT- MNPMP reviewed 03/01/17 as expected Count- n/a [...] Follow-up in 4 weeks Marivel Cavazos PA-C [facility] [address] [facility] [place] [address] documented in this encounter Plan of Treatment Upcoming Encounters Date Type Specialty Care Team Description 04/26/2022 Virtual Visit Pain & [place] [address] [place], [place] [address] (Wo rk) documented as [...] internally documented in this encounter Care Teams Fly Tier Relationship Specialty Start Date End Date Marlee Coles MD PCP - General 02/10/15 05/18/21 [place] [address] [address] [facility] [address] [place], [place] [address] Tony Gray MD Referring Physician Orthopedics 10/01/14 Conner Harper MD MD Orthopedics 10/01/[address] [place], [place] [address] documented as of this encounter
--- OUTSIDE RECORDS SUMMARY | 2022-04-22 09:45 | XMS_ITS | Encounter Summary ---
:1955 Author Organization [place] Address [address] [place] [address] Care Team Providers Name Role Phone Tony Gray MD Unavailable Conner Harper MD Unavailable Marlee Coles MD Primary Care Provider [phone] Marivel Cavazos PA-C Unavailable Zhang Masterson Primary [...] Pain & [place] [address] [place], [place] [address] (Wo rk) documented as of this encounter Visit Diagnoses Not on filedocumented in this encounter Care Teams Hardware Installer Relationship Specialty Start Date End Date Marlee Coles PCP - General 02/10/15 [place] [address] [address] [place], [place] [id number] Zhang Masterson PCP - General Family Medicine 05/19/[address] [place] [address] Tony Gray MD Referring Physician Orthopedics 10/01/14 Conner Harper MD MD Orthopedics 10/01/[address] [place] [address] Marivel Cavazos, Assigned Surgical Provider [address] [place], [place] [phone] documented as of this encounter
--- OUTSIDE RECORDS SUMMARY | 2022-04-22 09:45 | XMS_ITS | Encounter Summary ---
:1955 Author Organization [place] Address [address] [facility] [place] [address] Care Team Providers Name Role Phone Tony Gray MD Unavailable Conner Harper MD Unavailable Marlee Coles MD Primary Care Provider Reason for Visit Reason Comments Other med review Encounter Details Date Type Department Care Team Description 08/16/2016 Communication - [facility] Manju Krause, Other (med review) [facility] Pain Center RN [address] [facility] [address] [place] [address] Social History Tobacco Use Types Packs/Day Years Used Date Smoking Tobacco: Never Assessed Sex Assigned at Date Recorded Not on file documented as of this encounter Plan of Treatment Upcoming Encounters Date Type Specialty Care Team Description 04/26/2022 Virtual Visit Pain & [place] [address] [place], [place] [address] (Wo rk) documented as of this encounter Visit Diagnoses Not on filedocumented in this encounter Care Teams Developmental Electronics Assembler Relationship Specialty Start Date End Date Marlee Coles MD PCP - General 02/10/15 05/18/21 [place] [address] [address] [facility] [address] [place], [place] [id number] Tony Gray MD Referring Physician Orthopedics 10/01/14 Conner Harper MD MD Orthopedics 10/01/14 [facility] [facility] [address] [place] [address] documented as of this encounter
--- OUTSIDE RECORDS SUMMARY | 2022-04-22 09:45 | XMS_ITS | Encounter Summary ---
:1955 Author Organization [place] Address [address] [facility] [place] [address] Care Team Providers Name Role Phone Tony Gray MD Unavailable Conner Harper MD Unavailable Marlee Coles MD Primary Care Provider Encounter Details Date Type Department Care Team Description 03/03/2017 Communication - [facility] Jessica RN [address] [place] [address] Social History Tobacco Use Types Packs/Day Years Used Date Smoking Tobacco: Never Assessed Sex Assigned at Date Recorded Not on file documented as of this encounter Plan of Treatment Upcoming Encounters Date Type Specialty Care Team Description 04/26/2022 Virtual Visit Pain & [place] [address] [place], [place] [address] (Wo rk) documented as of this encounter Visit Diagnoses Not on filedocumented in this encounter Care Teams Urologic Surgeon Relationship Specialty Start Date End Date Marlee Coles MD PCP - General 02/10/15 05/18/21 [place] [address] [address] [place], [place] [address] Tony Gray MD Referring Physician Orthopedics 4/15/15 Conner Harper MD MD Orthopedics 10/01/14 [facility] [address] documented as of this encounter
--- OUTSIDE RECORDS SUMMARY | 2022-04-22 09:45 | XMS_ITS | Encounter Summary ---
:1955 Author Organization [place] Address [address] [facility] [place] [address] Care Team Providers Name Role Phone Tony Gray MD Unavailable Conner Harper MD Unavailable Marlee Coles MD Primary Care Provider [phone] Reason for Visit Reason Comments Back Pain Knee Pain Encounter Details Date Type Department Care Team Description 11/30/2016 Hospital Encounter [facility] Codie Cavazos [place] pain syndrome; Pain Center Marivel Hernadez PA-C Degeneration of lumbar or lumbosacral in tervertebral disc; [address] [facility] [address] Opioid type dependence, continuous (H); [place] [address] [place], [place] Bilateral linda mbar radiculopathy; [phone] Degeneration of thoracic intervertebral disc [place], [place] [phone] [address] (Work) [phone] Social History Tobacco Use Types Packs/Day Years [...] difficulty rising from a seated position. Opioid [place] Precautions: UDS/Swab- 03/29/16 as expected Consent due Agreement- 07/21/16 Pharmacy- as documented MANAGER CONTROL- MNPMP reviewed 11/30/16 as expected Count- n/a [...] Follow-up in 8 weeks Marivel Cavazos PA-C [facility] [address] [facility] [place] [address] documented in this encounter Miscellaneous Notes Addendum Note - Historical Provider - 11/30/2016 11:59 PM CDT Addendum Note by Danielle Mendez CMA at 11/30/2016 11:59 PM Author: Danielle Mendez CMA Service: -- Author Type: Choir Teacher Filed: 05/09/2017 3:46 PM Date of Service: 11/30/2016 11:59 PM Status: Signed Poultry Husbandman: Danielle Mendez CMA (Choir Teacher) Encounter addended by: Danielle Mendez CMA on: 05/09/2017 3:46 PM
Actions taken: Charge Capture section accepted documented in this encounter Plan of Treatment Upcoming Encounters Date Type Specialty Care Team Description 04/26/2022 Virtual Visit Pain & [place] [address] [place], [place] [address] (Wo rk) documented as of this encounter Visit Diagnoses Diagnosis Chronic pain syndrome Degeneration of lumbar or lumbosacral in tervertebral disc Opioid type dependence, continuous (H) Opioid type dependence, continuous Bilateral lumbar radiculopathy Degeneration of thoracic intervertebral disc Degeneration of thoracic or thoracolumba r intervertebral disc documented in this encounter Care Teams Insulation Blanket Maker Relationship Specialty Start Date End Date Marlee Coles MD PCP - General 02/10/15 05/18/21 [place] [address] [address] [place] [address] Tony Gray MD Referring Physician Orthopedics 10/01/14 Conner Harper MD MD Orthopedics 10/01/14 [facility] [place], [place] [address] [place], [place] [address] documented as of this encounter
--- OUTSIDE RECORDS SUMMARY | 2022-04-22 09:45 | XMS_ITS | Encounter Summary ---
:1955 Author Organization [place] Address [address] [facility] [place] [address] Care Team Providers Name Role Phone Tony Gray MD Unavailable Conner Harper MD Unavailable Marlee Coles MD Primary Care Provider [phone] Reason for Visit Reason Comments Back Pain Knee Pain Encounter Details Date Type Department Care Team Description 09/01/2016 Hospital Encounter [facility] Analitanmayana luisa Gregoriojovon id type dependence, continuous (H); Pain Center Marivel Hernadez PA-C Degeneration of lumbar or lumbosacral in tervertebral disc; [address] [facility] [address] Bilateral lumbar radiculopathy [place] [address] [place], [place] [address] [place], [place] [phone] [address] (Work) [phone] Social History Tobacco Use Types Packs/Day Years [...] last visit had right knee replacement at [facility] with Dr. Mg. This was 5 weeks ago. Describes infection day 3 aspirated oral antibiotics completed yesterday. Still swelling and pain with recovery. Not using AD. Completed rehab yesterday and states he has HEP. For postoperative pa in he stayed on his current opioid medications and was also written for hydroxyzine. Checked with [facility] in [place] and he did not fill any other [...] difficulty rising from a seated position. Opioid [place] Precautions: UDS/Swab- 03/29/16 as expected Consent due Agreement- 07/21/16 Pharmacy- as documented FIRMWARE SOFTWARE VERIFICATION ENGINEER- MNPMP reviewed 09/01/16 as expected Count- n/a [...] provider that he will be traveling to [place] for 2 weeks and his refill will [...] at 1600 by provider. Marivel Cavazos PA-C [facility] [address] [facility]. [address] [place] [address] documented in this encounter Plan of Treatment Upcoming Encounters Date Type Specialty Care Team Description 04/26/2022 Virtual Visit Pain & [place] [address] [place], [place] [address] (Wo rk) documented as of this encounter Visit Diagnoses Diagnosis Opioid type dependence, continuous (H) Opioid type dependence, continuous Degeneration of lumbar or lumbosacral in tervertebral disc Bilateral lumbar radiculopathy documented in this encounter Care Teams Double Needle Stitcher Relationship Specialty Start Date End Date Marlee Coles MD PCP - General 02/10/15 05/18/21 [place] [address] [address] [facility] [address] [place] [address] Tony Gray MD Referring Physician Orthopedics 10/01/14 Conner Harper MD MD Orthopedics 10/01/[address] [place], [place] [address] [place] [address] documented as of this encounter
--- OUTSIDE RECORDS SUMMARY | 2022-04-22 09:45 | XMS_ITS | Encounter Summary ---
:1955 Author Organization [place] Address [address] [facility] [place] [address] Care Team Providers Name Role Phone Tony Gray MD Unavailable Conner Harper MD Unavailable Marlee Coles MD Primary Care Provider Encounter Details Date Type Department Care Team Description 02/02/2017 Communication - [facility] Jessica RN [address] [place] [address] Social History Tobacco Use Types Packs/Day Years Used Date Smoking Tobacco: Never Assessed Sex Assigned at Date Recorded Not on file documented as of this encounter Plan of Treatment Upcoming Encounters Date Type Specialty Care Team Description 04/26/2022 Virtual Visit Pain & [place] [address] [place], [place] [address] (Wo rk) documented as of this encounter Visit Diagnoses Not on filedocumented in this encounter Care Teams Environmental Services Aide Relationship Specialty Start Date End Date Marlee Coles MD PCP - General 02/10/15 05/18/21 [place] [address] [address] [place], [place] [address] Tony Gray MD Referring Physician Orthopedics 4/15/15 Conner Harper MD MD Orthopedics 10/01/14 Formerly named [facility] [address] documented as of this encounter
--- OUTSIDE RECORDS SUMMARY | 2022-04-22 09:46 | XMS_ITS | Encounter Summary ---
:1955 Author Organization [place] Address [address] [facility] [place] [address] Care Team Providers Name Role Phone Verified, No Ref-Primary Primary Care Provider Unavailable Tony Gray MD Unavailable Conner Harper MD Unavailable Reason for Visit Reason Onset Date Comments *-*INCOMING RECORDS*-* 10/02/2014 Encounter Details Date Type Department Care Team Description 10/02/2014 PRE VISIT [facility] Conner Harper, *-*INCOMING RECORDS*-* [address], [address] [place] [phone] Social History Tobacco Use Types Packs/Day Years Used Date Smoking Tobacco: Never Assessed Sex Assigned at Date Recorded Not on file documented as of this encounter Miscellaneous Notes Telephone Encounter - Cely John - 10/09/2014 9:22 AM CDT [facility], will put in ortho reading professor. Telephone Encounter - Maurice Gordon - 10/03/2014 1:53 PM CDT Received faxed records from [facility], will forward to clinic. Waiting on imaging. Telephone Encounter - Cely John - 10/02/2014 8:55 AM CDT Appt 11/03/2014: [facility]. Faxed request for records and imaging to [facility]. documented in this encounter Plan of Treatment Upcoming Encounters Date Type Specialty Care Team Description 04/26/2022 Virtual Visit Pain & [place] [address] [place], [place] [address] (Wo rk) documented as of this encounter Visit Diagnoses Not on filedocumented in this encounter Care Teams Women'S Health Care Nurse Practitioner Relationship Specialty Start Date End Date Verified, No Ref-Primary PCP - General 10/01/14 Tony Gray MD Referring Physician Orthopedics 10/01/14 Conner Harper MD MD Orthopedics 10/01/14 [facility] [facility] [address] [place] [address] documented as of this encounter
--- OUTSIDE RECORDS SUMMARY | 2022-04-22 09:46 | XMS_ITS | Encounter Summary ---
:1955 Author Organization [place] Address [address] [place] [address] Care Team Providers Name Role Phone Verified, No Ref-Primary Primary Care Provider Unavailable Tony Gray MD Unavailable Conner Harper MD Unavailable Encounter Details Date Type Department Care Team Description 11/03/2014 Radiant Appointment [facility] Conner Harper, Knee pain [facility] [facility] [address] FLOOR, CLINIC [address] [place] [address] [place] [address] [phone] (Work) [phone] Social History Tobacco Use Types Packs/Day Years Used Date Smoking Tobacco: Never Assessed Sex Assigned at Date Recorded Not on file documented as of this encounter Plan of Treatment Upcoming Encounters Date Type Specialty Care Team Description 04/26/2022 Virtual Visit Pain & [place] [address] [place], [place] [address] (Wo rk) documented as [...] leg documented in this encounter Care Teams Tile Edger Relationship Specialty Start Date End Date Verified, No Ref-Primary PCP - General 10/01/14 Tony Gray MD Referring Physician Orthopedics 10/01/14 Conner Harper MD MD Orthopedics 10/01/14 [facility] [place] [address] documented as of this encounter
--- OUTSIDE RECORDS SUMMARY | 2022-04-22 09:46 | XMS_ITS | Encounter Summary ---
:1955 Author Organization [place] Address [address] [facility] 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
--- OUTSIDE RECORDS SUMMARY | 2022-04-22 09:46 | XMS_ITS | Encounter Summary ---
:1955 Author Organization [place] Address [address] [facility] [place] [address] Care Team Providers Name Role Phone Tony Gray MD Unavailable Conner Harper MD Unavailable Marlee Coles MD Primary Care Provider [phone] Reason for Visit Reason Comments Back Pain Encounter Details Date Type Department Care Team Description 03/29/2016 Hospital Encounter [facility] Deg eneration of lumbar [place] or lumbosacral [address] [place] [address] Social History Tobacco Use Types [...] Stafford - 03/29/2016 4:40 PM CDT Opioid [place] Precautions: UDS/Swab- 03/29/16 pending Consent due Agreement- 06/09/15 Pharmacy- as documented WELLNESS SPECIALIST- MNPMP reviewed online 03/29/16 - ok Count- [...] insert (.JHUDS): Most Recent CSA: Most Recent WELLNESS SPECIALIST: Most Recent EKG (if applicable): Notes: documented in this encounter Plan of Treatment Upcoming Encounters Date Type Specialty Care Team Description 04/26/2022 Virtual Visit Pain & [place] [address] [place], [place] [address] (Wo rk) documented as of this encounter Visit Diagnoses Diagnosis Degeneration of lumbar or lumbosacral in tervertebral disc documented in this encounter Care Teams Operator Weapon Locating Radar Relationship Specialty Start Date End Date Marlee Coles MD PCP - General 02/10/15 05/18/21 [place] [address] [address] [place] [address] Tony Gray MD Referring Physician Orthopedics 10/01/14 Conner Harper MD MD Orthopedics 10/01/14 [facility] [place], [place] [address] [place], [place] [address] documented as of this encounter
--- OUTSIDE RECORDS SUMMARY | 2022-04-22 09:46 | XMS_ITS | Encounter Summary ---
:1955 Author Organization [place] Address [address] [facility] [address] Care Team Providers Name Role Phone Tony Gray MD Unavailable Conner Harper MD Unavailable Marlee Coles MD Primary Care Provider [phone] Reason for Visit Reason Comments Back Pain Abdominal Pain Encounter Details Date Type Department Care Team Description 12/01/2015 Hospital Encounter [facility] syndrome[facility] Mar[facility] Hernade[facility] PA-C Degeneration of lumbar or lumbosacral in tervertebral disc; [address] [place] [address] Bilateral lumbar radiculopathy; [place], [place] Opioid type dependence, cont inuous (H); [place] [address] 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 CDI Lumbar MRI in [place] 2 weeks ago. He states he saw [...] from 09/30/15 appropriate for prescribed medications. [place] NATURAL GAS BASIS TRADER reviewed on 08/04/15 with percocet 5/325 mg [...] needed for pain. Both sent electronically to [facility] today to fill 12/08/15. Continue Synera, Methocarbamol, Amitriptyline as prescribed. Please call our Nurse Triage phone # [phone] days in advance for next month's opioid prescription refill to be sent electronically to your pharmacy. Sign release for Dr. Steinberg and the [facility] MRI image for us to review We can add in amantadine or namenda for augmenting pain control and nerve pain relief as needed. Follow-up in 8 weeks to evaluate the above plan of care. 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
--- OUTSIDE RECORDS SUMMARY | 2022-04-22 09:46 | XMS_ITS | Encounter Summary ---
:1955 Author Organization [place] Address [address] [facility] [place] [address] Care Team Providers Name Role Phone Tony Gray MD Unavailable Conner Harper MD Unavailable Marlee Coles MD Primary Care Provider [phone] Encounter Details Date Type Department Care Team Description 10/06/2015 Ambulatory - [facility], PA-C [address] [place] [address] (Wo rk) [phone] [phone] Social History Tobacco Use Types Packs/Day Years Used Date Smoking Tobacco: Never Assessed Sex Assigned at Date Recorded Not on file documented as of this encounter Plan of Treatment Upcoming Encounters Date Type Specialty Care Team Description 04/26/2022 Virtual Visit Pain & [place] [address] [place], [place] [address] (Wo rk) documented as of this encounter Visit Diagnoses Not on filedocumented in this encounter Care Teams Teleprinter Relationship Specialty Start Date End Date Marlee Coles MD PCP - General 02/10/15 05/18/21 [facility] [place] [address] [address] [address] Tony Gray MD Referring Physician Orthopedics 10/01/14 Conner Harper MD MD Orthopedics 10/01/14 [address] [facility] [address] [place], [place] [address] documented as of this encounter
--- OUTSIDE RECORDS SUMMARY | 2022-04-22 09:46 | XMS_ITS | Encounter Summary ---
:1955 Author Organization [place] Address [address] [facility] [place] [address] Care Team Providers Name Role Phone Verified, No Ref-Primary Primary Care Provider Unavailable Tony Gray MD Unavailable Conner Harper MD Unavailable Marlee Coles MD Primary Care Provider Reason for Visit Reason Comments Medication Refill Encounter Details Date Type Department Care Team Description 02/03/2015 Communication - [facility] Provider, [facility] [address] [place] [address] Social History Tobacco Use Types Packs/Day Years Used Date Smoking Tobacco: Never Assessed Sex Assigned at Date Recorded Not on file documented as of this encounter Plan of Treatment Upcoming Encounters Date Type Specialty Care Team Description 04/26/2022 Virtual Visit Pain & [place] [address] [place], [place] [address] (Wo rk) documented as of this encounter Visit Diagnoses Diagnosis Degeneration of lumbar or lumbosacral in tervertebral disc documented in this encounter Care Teams Fabrication Operator Relationship Specialty Start Date End Date Verified, No Ref-Primary PCP - General 10/01/14 Marlee Coles MD PCP - General 02/10/15 05/18/21 [place] [address] [address] [place] [address] Tony Gray MD Referring Physician Orthopedics 10/01/14 Conner Harper MD MD Orthopedics 10/01/14 [address] [facility] [address] [place], [place] [address] documented as of this encounter
--- OUTSIDE RECORDS SUMMARY | 2022-04-22 09:46 | XMS_ITS | Encounter Summary ---
:1955 Author Organization [place] Address [address] [facility] [place] [address] Care Team Providers Name Role Phone Tony Gray MD Unavailable Conner Harper MD Unavailable Marlee Coles MD Primary Care Provider Reason for Visit Reason Comments Medication Refill Encounter Details Date Type Department Care Team Description 07/30/2015 Communication - [facility] [place] Hawa Jiang Medic ation Refill [facility] A, RN [address] [facility] [address] [place] [address] Social History Tobacco Use Types Packs/Day Years Used Date Smoking Tobacco: Never Assessed Sex Assigned at Date Recorded Not on file documented as of this encounter Plan of Treatment Upcoming Encounters Date Type Specialty Care Team Description 04/26/2022 Virtual Visit Pain & [place] [address] [place], [place] [address] (Wo rk) documented as of this encounter Visit Diagnoses Diagnosis Degeneration of lumbar or lumbosacral in tervertebral disc documented in this encounter Care Teams Chinese Instructor Relationship Specialty Start Date End Date Marlee Coles MD PCP - General 02/10/15 05/18/21 [place] [address] [address] [address] Tony Gray MD Referring Physician Orthopedics 10/01/14 Conner Harper MD MD Orthopedics 10/01/14 [address] [facility] [address] [place] [address] documented as of this encounter
--- OUTSIDE RECORDS SUMMARY | 2022-04-22 09:46 | XMS_ITS | Encounter Summary ---
:1955 Author Organization [place] Address [address] [facility] [place] [address] Care Team Providers Name Role Phone Verified, No Ref-Primary Primary Care Provider Unavailable Tony Gray MD Unavailable Conner Harper MD Unavailable Marlee Coles MD Primary Care Provider Reason for Visit Reason Comments Medication Problem Encounter Details Date Type Department Care Team Description 10/28/2014 Communication - [facility] Zoe Cavazos [facility] Marivel Hernadez PA-C [address] [place] [phone] Social History Tobacco Use Types Packs/Day Years Used Date Smoking Tobacco: Never Assessed Sex Assigned at Date Recorded Not on file documented as of this encounter Plan of Treatment Upcoming Encounters Date Type Specialty Care Team Description 04/26/2022 Virtual Visit Pain & [place] [address] [place], [place] [address] (Wo rk) documented as of this encounter Visit Diagnoses Diagnosis Degeneration of lumbar or lumbosacral in tervertebral disc documented in this encounter Care Teams Hotel And Dining Room Cashier Relationship Specialty Start Date End Date Verified, No Ref-Primary PCP - General 10/01/14 Marlee Coles MD PCP - General 02/10/15 05/18/21 [place] [address] [address] [address] Tony Gray MD Referring Physician Orthopedics 10/01/14 Conner Harper MD MD Orthopedics 10/01/14 [facility] [facility] [address] [place] [address] documented as of this encounter
--- OUTSIDE RECORDS SUMMARY | 2022-04-22 09:46 | XMS_ITS | Encounter Summary ---
:1955 Author Organization [place] Address [address] [place] [address] Care Team Providers Name Role Phone Tony Gray MD Unavailable Conner Harper MD Unavailable Marlee Coles MD Primary Care Provider [phone] Reason for Visit Reason Comments Medication Refill Encounter Details Date Type Department Care Team Description 06/03/2015 Communication - [facility] Marivel Hernadez PA-C [address] [place] [phone] Social History Tobacco Use Types Packs/Day Years Used Date Smoking Tobacco: Never Assessed Sex Assigned at Date Recorded Not on file documented as of this encounter Plan of Treatment Upcoming Encounters Date Type Specialty Care Team Description 04/26/2022 Virtual Visit Pain & [place] [address] [place], [place] [address] (Wo rk) documented as of this encounter Visit Diagnoses Diagnosis Degeneration of lumbar or lumbosacral in tervertebral disc documented in this encounter Care Teams Range Scientist Relationship Specialty Start Date End Date Marlee Coles MD PCP - General 02/10/15 05/18/21 [place] [address] [address] [place], [place] [address] Tony Gray MD Referring Physician Orthopedics 10/01/14 Conner Harper MD MD Orthopedics 10/01/14 [facility] [address] [place], [place] [id number] [place] [address] documented as of this encounter
--- OUTSIDE RECORDS SUMMARY | 2022-04-22 09:46 | XMS_ITS | Encounter Summary ---
:1955 Author Organization [place] Address [address] [facility] [place] [address] Care Team Providers Name Role Phone Tony Gray MD Unavailable Conner Harper MD Unavailable Marlee Coles MD Primary Care Provider [phone] Reason for Visit Reason Comments Back Pain Encounter Details Date Type Department Care Team Description 02/10/2015 Hospital Encounter [facility] PAIN C[facility] onic pain syndrome; [facility] Marivel Hernadez PA-C Degeneration of lumbar or lumbosacral in tervertebral disc; [address] [place] [address] Thoracic or lumbosacral neuritis or radi culitis, unspecified; [place], [place] Degeneration of thoracic or thoracolumbar intervertebral disc; [place] [address] Opioid type dependence, continuous (H) [id number] Social History Tobacco Use Types Packs/Day [...] - - Weight 102.1 kg (225 lb) 02/10/2015 9:57 AM CDT Height 170.2 cm (5' 7) 02/10/2015 9:57 AM CDT Body Mass Index 35.24 02/10/2015 9:57 AM CDT documented in this encounter Medications [...] encounter Progress Notes Marivel Cavazos PA-C - 02/10/2015 9:51 AM CDT PAIN CENTER PROGRESS NOTE Subjective: [...] syndrome 2. Lumbar Disc Degeneration 3. Thoracic or lumbosacral neuritis or radiculitis, unspecified 4. Thoracic Disc Degeneration 5. Opioid Dependence With Continuous Use Pain location and description: 5/10 constant sharp pain in mid and low back. Function rated 3. Last visit pain rated 5/10. Pain levels between 4-5 and sometimes less than that which is tolerable. States doing pretty good for pain control. Radiation of pain: Buttocks bilaterally, mid back pain radiates into left chest intermittently underneath breast. Paresthesias, numbness, weakness: Legs bilaterally, right worse than left. Gait disturbance: None reported, denies recent falls. Exacerbating factors: bending to tie shoes, prolonged sitting, cold temperatures, being without painmedications Alleviating factors: Pain medications, standing or changing positions Associated symptoms: Has stomach pain, not associated with medications. Adverse effects of medications: xerostomia. Denies constipation, rash. Current treatment efficacy: Good. Current treatment compliance: Good; denies self-escalation of doses and no early refill requests. UDS appropriate. Keeps appointment follow-ups with pain center. Does walking and stretching exercise inthe morning. Has stomach pain; has had since cholecystectomy. He has seen provider at [facility] and he is goingto start PPI for 2 weeks to see if helpful. If not, will have abdominal ultrasound. He denies any association of stomach pain with his opioids. He denies nausea, vomiting. Rash is only on sun exposed areas and does not occur if he applies sunscreen. Review of Systems Constitutional: Sleep disturbance. Denies [...] suicidal ideation, substance use/abuse. Objective: Filed Vitals: 02/10/15 0957 BP: 143/87 Pulse: 68 Height: 5' 7 (1.702 m) Weight: 225 [...] hours. Continue Tramadol and Methocarbamol as prescribed. Refills sent to [facility]. Synera patch prescribed for topical pain management. You may take Amitriptyline as needed for sleep but patient is not taking daily due to side effects. Please call our Nurse Triage phone # seven days in advance for next month's opioid prescription refill to be sent electronically to your pharmacy. Follow-up in 8 weeks to evaluate the above plan of care. 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
--- OUTSIDE RECORDS SUMMARY | 2022-04-22 09:46 | XMS_ITS | Encounter Summary ---
:1955 Author Organization [place] Address [address] [facility] [place] [address] Care Team Providers Name Role Phone Verified, No Ref-Primary Primary Care Provider Unavailable Tony Gray MD Unavailable Conner Harper MD Unavailable Marlee Coles MD Primary Care Provider Reason for Visit Reason Comments Medication Refill Encounter Details Date Type Department Care Team Description 10/27/2014 Communication - [facility] Rayo Butler [facility] [place] [address] [place] [address] Social History Tobacco Use Types Packs/Day Years Used Date Smoking Tobacco: Never Assessed Sex Assigned at Date Recorded Not on file documented as of this encounter Plan of Treatment Upcoming Encounters Date Type Specialty Care Team Description 04/26/2022 Virtual Visit Pain & [place] [address] [place], [place] [address] (Wo rk) documented as of this encounter Visit Diagnoses Diagnosis Degeneration of lumbar or lumbosacral in tervertebral disc documented in this encounter Care Teams Organ Fixer Relationship Specialty Start Date End Date Verified, No Ref-Primary PCP - General 10/01/14 Marlee Coles MD PCP - General 02/10/15 05/18/21 [place] [address] [address] [place] [address] Tony Gray MD Referring Physician Orthopedics 10/01/14 Conner Harper MD MD Orthopedics 10/01/14 [address] [facility] [address] [place] [address] documented as of this encounter
--- OUTSIDE RECORDS SUMMARY | 2022-04-22 09:46 | XMS_ITS | Encounter Summary ---
:1955 Author Organization [place] Address [address] [place] [address] Care Team Providers Name Role Phone Tony Gray MD Unavailable Conner Harper MD Unavailable Marlee Coles MD Primary Care Provider [phone] Reason for Visit Reason Comments Back Pain Encounter Details Date Type Department Care Team Description 05/26/2016 Hospital Encounter [facility] Gregorio Cavazos type dependence, continuous (H); [facility] Marivel Hernadez PA-C Degeneration of lumbar or lumbosacral in tervertebral disc; [address] [place] [address] Radiculopathy, lumbar region [place], [place] [phone] Social History Tobacco Use Types Packs/Day [...] 104.3 kg (230 lb) 05/26/2016 10:20 AM RN [facility] Height 170.2 cm (5' 7) 05/26/2016 10:20 AM RN [facility] Body Mass Index 36.02 05/26/2016 10:20 AM RN [facility] documented in this encounter Medications at Time [...] Pain location and description: 6/10 constant sharp, awful, pounding pain in mid [...] difficulty rising from a seated position. [facility] Precautions: UDS/Swab- 03/29/16 as expected Consent due Agreement- 06/09/15 Pharmacy- as documented LOG YARD DERRICK OPERATOR- MNPMP reviewed online 03/29/16 - ok Count- [...] Follow-up in 8 weeks Marivel Cavazos PA-C [facility] documented in this encounter Plan of Treatment Upcoming Encounters Date Type Specialty Care Team Description 04/26/2022 Virtual Visit Pain & [place] [address] [place], [place] [address] (Wo rk) documented as of this encounter Visit Diagnoses Diagnosis Opioid type dependence, continuous (H) Opioid type dependence, continuous Degeneration of lumbar or lumbosacral in tervertebral disc Radiculopathy, lumbar region Thoracic or lumbosacral neuritis or radi culitis, unspecified documented in this encounter Care Teams Building Associate Relationship Specialty Start Date End Date Marlee Coles MD PCP - General 02/10/15 05/18/21 [facility] [place] [address] [address] [place], [place] [address] Tony Gray MD Referring Physician Orthopedics 10/01/14 Conner Harper MD MD Orthopedics 10/01/[address] [place], [place] [address] documented as of this encounter
--- OUTSIDE RECORDS SUMMARY | 2022-04-22 09:46 | XMS_ITS | Encounter Summary ---
:1955 Author Organization [place] Address [address] [facility] [place] [address] Care Team Providers Name Role Phone Tony Gray MD Unavailable Conner Harper MD Unavailable Marlee Coles MD Primary Care Provider Reason for Visit Reason Comments Medication Refill Encounter Details Date Type Department Care Team Description 11/09/2015 Communication - [facility] Provider, [facility]ica [facility] [address] [place] [address] Social History Tobacco Use Types Packs/Day Years Used Date Smoking Tobacco: Never Assessed Sex Assigned at Date Recorded Not on file documented as of this encounter Plan of Treatment Upcoming Encounters Date Type Specialty Care Team Description 04/26/2022 Virtual Visit Pain & [place] [address] [place], [place] [address] (Wo rk) documented as of this encounter Visit Diagnoses Diagnosis Degeneration of lumbar or lumbosacral in tervertebral disc documented in this encounter Care Teams Office Automation Technician Relationship Specialty Start Date End Date Marlee Coles MD PCP - General 02/10/15 05/18/21 [place] [address] [address] [facility] [address] [place], [place] [phone] Tony Gray MD Referring Physician Orthopedics 10/01/14 Conner Harper MD MD Orthopedics 10/01/14 [facility] [address] [facility] [address] [place] [address] documented as of this encounter
--- OUTSIDE RECORDS SUMMARY | 2022-04-22 09:46 | XMS_ITS | Encounter Summary ---
:1955 Author Organization [place] Address [address] [place] [address] Care Team Providers Name Role Phone Tony Gray MD Unavailable Conner Harper MD Unavailable Marlee Coles MD Primary Care Provider [phone] Reason for Visit Reason Comments Medication Refill Encounter Details Date Type Department Care Team Description 08/25/2015 Communication - [facility] Marivel Hernadez PA-C [address] [place] [phone] Social History Tobacco Use Types Packs/Day Years Used Date Smoking Tobacco: Never Assessed Sex Assigned at Date Recorded Not on file documented as of this encounter Plan of Treatment Upcoming Encounters Date Type Specialty Care Team Description 04/26/2022 Virtual Visit Pain & [place] [address] [place], [place] [address] (Wo rk) documented as of this encounter Visit Diagnoses Diagnosis 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
--- OUTSIDE RECORDS SUMMARY | 2022-04-22 09:46 | XMS_ITS | Encounter Summary ---
:1955 Author Organization [place] Address [address] [facility] [address] Care Team Providers Name Role Phone Verified, No Ref-Primary Primary Care Provider Unavailable Tony Gray MD Unavailable Conner Harper MD Unavailable Marlee Coles MD Primary Care Provider [phone] Reason for Visit Reason Comments Other Patient request; Patient req uested records to be sent to Work Comp Encounter Details Date Type Department Care Team Description 10/14/2014 Ambulatory - [facility] Provider, [facility] [address] [place] [phone] Social History Tobacco Use Types Packs/Day Years [...] Pain & [place] [address] [place], [place] [address] (Wo rk) documented as of this encounter Visit Diagnoses Not on filedocumented in this encounter Care Teams Cathode Washer Relationship Specialty Start Date End Date Verified, No Ref-Primary PCP - General 10/01/14 Marlee Coles MD PCP - General 02/10/15 05/18/21 [place] [address] [address] [facility] [address] [place] [address] Tony Gray MD Referring Physician Orthopedics 10/01/14 Conner Harper MD MD Orthopedics 10/01/14 [address] [facility] [address] [place], [place] [address] documented as of this encounter
--- OUTSIDE RECORDS SUMMARY | 2022-04-22 09:46 | XMS_ITS | Encounter Summary ---
:1955 Author Organization [place] Address [address] [facility] [place] [address] Care Team Providers Name Role Phone Tony Gray MD Unavailable Conner Harper MD Unavailable Marlee Coles MD Primary Care Provider Reason for Visit Reason Comments Medication Refill Encounter Details Date Type Department Care Team Description 01/04/2016 Communication - [facility] Provider, [facility] [address] [place] [address] Social History Tobacco Use Types Packs/Day Years Used Date Smoking Tobacco: Never Assessed Sex Assigned at Date Recorded Not on file documented as of this encounter Plan of Treatment Upcoming Encounters Date Type Specialty Care Team Description 04/26/2022 Virtual Visit Pain & [place] [address] [place], [place] [address] (Wo rk) documented as of this encounter Visit Diagnoses Diagnosis 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
--- OUTSIDE RECORDS SUMMARY | 2022-04-22 09:46 | XMS_ITS | Encounter Summary ---
:1955 Author Organization [place] Address [address] [facility] [place] [address] Care Team Providers Name Role Phone Tony Gray MD Unavailable Conner Harper MD Unavailable Marlee Coles MD Primary Care Provider [phone] Reason for Visit Reason Comments Medication Refill Encounter Details Date Type Department Care Team Description 09/28/2015 Communication - [facility] Provider, [facility] [address] [place] [phone] Social History Tobacco Use Types Packs/Day Years Used Date Smoking Tobacco: Never Assessed Sex Assigned at Date Recorded Not on file documented as of this encounter Miscellaneous Notes Addendum Note - Rayo Butler - 09/30/2015 10:52 AM CDT Addendum Note by Rayo Butler CMA at 09/30/2015 10:52 AM Author: Rayo Butler CMA Service: -- Author Type: Diamond Sizer Filed: 09/30/2015 10:52 AM Encounter Date: 09/28/2015 Status: Signed Bearing Inspector: Rayo Butler CMA (Diamond Sizer) Addended by: RAYO BUTLER on: 09/30/2015 10:52 AM Modules accepted: Orders documented in this encounter Plan of Treatment Upcoming Encounters Date Type Specialty Care Team Description 04/26/2022 Virtual Visit Pain & [place] [address] [place], [place] [address] (Wo rk) documented as of this encounter Visit Diagnoses Diagnosis Degeneration of lumbar or lumbosacral in tervertebral disc documented in this encounter Care Teams Commercial Loan Analyst Relationship Specialty Start Date End Date Marlee Coles MD PCP - General 02/10/15 05/18/21 [place] [address] [address] [address] Tony Gray MD Referring Physician Orthopedics 10/01/14 Conner Harper MD MD Orthopedics 10/01/[address] [place] [address] documented as of this encounter
--- OUTSIDE RECORDS SUMMARY | 2022-04-22 09:46 | XMS_ITS | Encounter Summary ---
:1955 Author Organization [place] Address [address] [facility] 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; [address] [place] [address] [place] Opioid type dependence, continuous (H); [address] [address] [place], [place] Bilateral linda mbar radiculopathy 101 [address] [place], [place] [phone] [address] (Work) [phone] Social History Tobacco Use Types Packs/Day Years [...] 100.2 kg (221 lb) 07/21/2016 10:02 AM HEAD OF TRANSPORT LOGISTICS Height 170.2 cm (5' 7) 07/21/2016 10:02 AM HEAD OF TRANSPORT LOGISTICS Body Mass Index 34.61 07/21/2016 10:02 AM HEAD OF TRANSPORT LOGISTICS documented in this encounter Medications at Time [...] next week for right knee replacement at [facility] with Dr. Mg is surgeon. Discussed postoperative [...] difficulty rising from a seated position. Opioid [place] Precautions: UDS/Swab- 03/29/16 as expected Consent due Agreement- 07/21/16 Pharmacy- as documented PREVENTATIVE MAINTENANCE TECHNICIAN- MNPMP reviewed 07/21/16 as expected Count- n/a [...] Follow-up in 8 weeks Marivel Cavazos PA-C [facility] [address] 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
--- OUTSIDE RECORDS SUMMARY | 2022-04-22 09:46 | XMS_ITS | Encounter Summary ---
:1955 Author Organization [place] Address [address] [facility] 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 He has seen provider at [facility] and he started PPI without efficacy. He [...] as needed for pain. Refills sent to [facility]. Continue Synera, Methocarbamol, Amitriptyline as prescribed. Please call our Nurse Triage phone # seven days in advance for next month's opioid prescription refill to be sent electronically to your pharmacy. Make appointment for abdominal ultrasound due to continued symptoms Follow-up in 8 weeks to evaluate the above plan of care. 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
--- OUTSIDE RECORDS SUMMARY | 2022-04-22 09:46 | XMS_ITS | Encounter Summary ---
:1955 Author Organization [place] Address [address] [place] [address] Care Team Providers Name Role Phone Tony Gray MD Unavailable Conner Harper MD Unavailable Marlee Coles MD Primary Care Provider [phone] Reason for Visit Reason Comments Medication Refill Encounter Details Date Type Department Care Team Description 06/16/2016 Communication - [facility] [place], Medicat ion Refill [facility] Marivel Hernadez PA-C [address] [place], [place] [address] [place], [place] [phone] (Work) [phone] Social History Tobacco Use Types Packs/Day Years Used Date Smoking Tobacco: Never Assessed Sex Assigned at Date Recorded Not on file documented as of this encounter Plan of Treatment Upcoming Encounters Date Type Specialty Care Team Description 04/26/2022 Virtual Visit Pain & [place] [address] [place], [place] [address] (Wo rk) documented as of this encounter Visit Diagnoses Diagnosis Degeneration of lumbar or lumbosacral in tervertebral disc documented in this encounter Care Teams Customer Advisor Specialist Relationship Specialty Start Date End Date Marlee Coles MD PCP - General 02/10/15 05/18/21 [place] [address] [address] [place], [place] [address] Tony Gray MD Referring Physician Orthopedics 10/01/14 Conner Harper MD MD Orthopedics 10/01/14 [facility] [place], [place] [address] [place], [place] [address] documented as of this encounter
--- OUTSIDE RECORDS SUMMARY | 2022-04-22 09:46 | XMS_ITS | Encounter Summary ---
:1955 Author Organization [place] Address [address] [facility] [place] [address] Care Team Providers Name Role Phone Tony Gray MD Unavailable Conner Harper MD Unavailable Marlee Coles MD Primary Care Provider Encounter Details Date Type Department Care Team Description 12/03/2015 Ambulatory - [facility] B, PA-C [address] [place] [address] (Wo rk) [phone] Social History Tobacco Use Types Packs/Day Years Used Date Smoking Tobacco: Never Assessed Sex Assigned at Date Recorded Not on file documented as of this encounter Plan of Treatment Upcoming Encounters Date Type Specialty Care Team Description 04/26/2022 Virtual Visit Pain & [place] [address] [place], [place] [address] (Wo rk) documented as of this encounter Visit Diagnoses Not on filedocumented in this encounter Care Teams Air Hammer Operator Relationship Specialty Start Date End Date Marlee Coles MD PCP - General 02/10/15 05/18/21 [facility] [place] [address] [address] [address] Tony Gray MD Referring Physician Orthopedics 10/01/14 Conner Harper MD MD Orthopedics 10/01/14 [address] [facility] [address] [place], [place] [address] documented as of this encounter
--- OUTSIDE RECORDS SUMMARY | 2022-04-22 09:46 | XMS_ITS | Encounter Summary ---
:1955 Author Organization [place] Address [address] [facility] [place] [address] Care Team Providers Name Role Phone Verified, No Ref-Primary Primary Care Provider Unavailable Tony Gray MD Unavailable Conner Harper MD Unavailable Marlee Coles MD Primary Care Provider Reason for Visit Reason Comments Medication Refill Encounter Details Date Type Department Care Team Description 11/24/2014 Communication - [facility] Provider, [facility]ica [facility] [address] [place] [address] Social History Tobacco Use Types Packs/Day Years Used Date Smoking Tobacco: Never Assessed Sex Assigned at Date Recorded Not on file documented as of this encounter Plan of Treatment Upcoming Encounters Date Type Specialty Care Team Description 04/26/2022 Virtual Visit Pain & [place] [address] [place], [place] [address] (Wo rk) documented as of this encounter Visit Diagnoses Diagnosis Degeneration of lumbar or lumbosacral in tervertebral disc documented in this encounter Care Teams Acting Section Chief Relationship Specialty Start Date End Date Verified, No Ref-Primary PCP - General 10/01/14 Marlee Coles MD PCP - General 02/10/15 05/18/21 [place] [address] [address] [place] [address] Tony Gray MD Referring Physician Orthopedics 10/01/14 Conner Harpre MD MD Orthopedics 10/01/14 [address] [facility] [address] [place], [place] [address] documented as of this encounter
--- OUTSIDE RECORDS SUMMARY | 2022-04-22 09:46 | XMS_ITS | Encounter Summary ---
:1955 Author Organization [place] Address [address] [place] [address] Care Team Providers Name Role Phone Tony Gray MD Unavailable Conner Harper MD Unavailable Marlee Coles MD Primary Care Provider [phone] Reason for Visit Reason Comments Back Pain Abdominal Pain Encounter Details Date Type Department Care Team Description 02/02/2016 Hospital Encounter [facility] onic pain syndrome; [place] Marivel Hernadez PA-C Degeneration of lumbar or lumbosacral in tervertebral disc [address] [place] [place] [phone] Social History Tobacco Use Types Packs/Day Years [...] - - Weight 104.3 kg (230 lb) 02/02/2016 10:17 AM CDT Height 170.2 cm (5' 7) 02/02/2016 10:17 AM CDT Body Mass Index 36.02 02/02/2016 10:17 AM CDT documented in this encounter Medications [...] encounter Progress Notes Marivel Cavazos PA-C - 02/02/2016 10:18 AM CDT PAIN CENTER PROGRESS NOTE Subjective: [...] Lumbar Disc Degeneration Pain location and description: 5/10 constant sharp pain in mid and low back, buttock, and bilateral legs. He reports his pain level is higher today as he mowed his lawn yesterday, which causes one to 2days of increased pain as he has 1 acre of land. Function rated 8. Last visit pain rated 4-5/10. Radiation of pain: Buttocks bilaterally, mid back [...] stretching exercise inthe morning. CDI Lumbar MRI reviewed today. He has spoken to Dr. Steinberg about this also and does not have any questions. He does state he has continued diclofenac 75 mg but only takes 1 a day as needed instead of twice a day. States there wasn't any new surgical discussion. He states in the past he was recommendedto have rods placed in his spine and he feels he is not interested in this until he is unable to function. He states he was speaking to his knee physician, who asked him about his chronic opiate use and if he would be interested in the medical cannabis for pain to reduce reliance on opioids. He states at this point he has not but had some questions regarding this program today. We also discussed other approaches to be able to reduce opiate such as a spinal cord stimulator implant trial. He states he has not fully considered this but has been discussed in the past. He reports bilateral buttock numbness which travels down bilateral legs to feet. He states usually numbness goes away after changing positions from sitting to standing. Denies new injury or trauma. Hereports this is painful but difficult to describe. He denies changes in bowel or bladder control. Review of Systems Constitutional: Sleep disturbance. Generalized itching, recent rash. Denies fever, chills, [...] psychoses, suicidal ideation, substance use/abuse. Objective: Vitals: 02/02/16 1017 BP: 144/73 Pulse: (!) 52 Resp: 18 Weight: (!) 230 lb (104.3 [...] and intact to inspection and palpation. No current rash toexposed areas. Scars from previous sores on bilateral upper and lower extremities. Musculoskeletal- Gait and station: Abnormal, antalgia on the right. Gait evaluation demonstrates ambulating independently. Patient does have difficulty rising from a seated position. Lab: UDS from 09/30/15 appropriate for prescribed medications. Imaging: MRI of the lumbar spine on [...] moderate right L4-5 foraminal stenosis. He is taking Diclofenac with some reduction [...] pain. Both sent electronically to [facility] today Continue Synera, Methocarbamol, Amitriptyline as prescribed. Please call our Nurse Triage phone # seven days in advance for next month's opioid prescription refill to be sent electronically to your pharmacy. We can add in amantadine or namenda for augmenting pain control and nerve pain relief as needed. Also discussed options of spinal cord stimulator implant and/or considering medical cannabis for pain asweighs 2 potentially reduce opiate dependence, patient and interested in pursuing at this time. Follow-up in 8 weeks CSS visit to evaluate the above plan of care. Marivel Cavazos PA-C [facility] documented in this encounter Plan of Treatment Upcoming Encounters Date Type Specialty Care Team Description 04/26/2022 Virtual Visit Pain & [place] [address] [place], [place] [address] (Wo rk) documented as of this encounter Visit Diagnoses Diagnosis Chronic pain syndrome Degeneration of lumbar or lumbosacral in tervertebral disc documented in this encounter Care Teams Corn Grinder Relationship Specialty Start Date End Date Marlee Coles MD PCP - General 02/10/15 05/18/21 [place] [address] [address] [place], [place] [address] Tony Gray MD Referring Physician Orthopedics 10/01/14 Conner Harper MD MD Orthopedics 10/01/[address] [place], [place] [address] documented as of this encounter
--- OUTSIDE RECORDS SUMMARY | 2022-04-22 09:46 | XMS_ITS | Encounter Summary ---
:1955 Author Organization [place] Address [address] [facility] [place] [address] Care Team Providers Name Role Phone Tony Gray MD Unavailable Conner Harper MD Unavailable Marlee Coles MD Primary Care Provider Encounter Details Date Type Department Care Team Description 02/04/2016 Ambulatory - [facility] B, PA-C [address] [place] [address] (Wo rk) [address] [phone] Social History Tobacco Use Types Packs/Day Years Used Date Smoking Tobacco: Never Assessed Sex Assigned at Date Recorded Not on file documented as of this encounter Plan of Treatment Upcoming Encounters Date Type Specialty Care Team Description 04/26/2022 Virtual Visit Pain & [place] [address] [place], [place] [address] (Wo rk) documented as of this encounter Visit Diagnoses Not on filedocumented in this encounter Care Teams Retail Agent Relationship Specialty Start Date End Date Marlee Coles MD PCP - General 02/10/15 05/18/21 [facility] [place] [address] [address] [address] Tony Gray MD Referring Physician Orthopedics 10/01/14 Conner Harper MD MD Orthopedics 10/01/14 [address] [facility] [address] [place], [place] [address] documented as of this encounter
--- OUTSIDE RECORDS SUMMARY | 2022-04-22 09:46 | XMS_ITS | Encounter Summary ---
:1955 Author Organization [place] Address [address] [facility] [place] [address] Care Team Providers Name Role Phone Verified, No Ref-Primary Primary Care Provider Unavailable Tony Gray MD Unavailable Conner Harper MD Unavailable Marlee Coles MD Primary Care Provider [phone] Ashish Alexander Primary Care Provider Unavailable Reason for Visit Reason Comments Medication Refill Encounter Details Date Type Department Care Team Description 09/30/2014 [facility] A, RN [address] [facility] [address] [place] [address] Social History Tobacco Use Types Packs/Day Years Used Date Smoking Tobacco: Never Assessed Sex Assigned at Date Recorded Not on file documented as of this encounter Plan of Treatment Upcoming Encounters Date Type Specialty Care Team Description 04/26/2022 Virtual Visit Pain & [place] [address] [place], [place] [address] (Wo rk) documented as of this encounter Visit Diagnoses Diagnosis Degeneration of lumbar or lumbosacral in tervertebral disc documented in this encounter Care Teams Plastic Extrusion Operator Relationship Specialty Start Date End Date Verified, No Ref-Primary PCP - General 10/01/14 Marlee Coles MD PCP - General 02/10/15 05/18/21 [place] [address] [address] [place], [place] [address] Ashish Alexander PCP - General 12/05/13 09/30/14 Tony Gray MD Referring Physician Orthopedics 10/01/14 Conner Harper MD MD Orthopedics 10/01/14 [facility] [facility] [address] [place], [place] [address] documented as of this encounter
--- OUTSIDE RECORDS SUMMARY | 2022-04-22 09:46 | XMS_ITS | Encounter Summary ---
:1955 Author Organization [place] Address [address] [place] [address] Care Team Providers Name Role Phone Tony Gray MD Unavailable Conner Harper MD Unavailable Marlee Coles MD Primary Care Provider [phone] Reason for Visit Reason Comments Medication Refill opana, tramadol Encounter Details Date Type Department Care Team Description 03/23/2016 Communication - [facility] Lopez MD (opana, tramadol) [address] [address] [phone] Social History Tobacco Use Types Packs/Day Years Used Date Smoking Tobacco: Never Assessed Sex Assigned at Date Recorded Not on file documented as of this encounter Plan of Treatment Upcoming Encounters Date Type Specialty Care Team Description 04/26/2022 Virtual Visit Pain & [place] [address] [place], [place] [address] (Wo rk) documented as of this encounter Visit Diagnoses Diagnosis Degeneration of lumbar or lumbosacral in tervertebral disc documented in this encounter Care Teams Orthotist Relationship Specialty Start Date End Date Marlee Coles MD PCP - General 02/10/15 05/18/21 [place] [address] [address] [place], [place] [address] Tony Gray MD Referring Physician Orthopedics 10/01/14 Conner Harper MD MD Orthopedics 10/01/14 [address] [facility] [address] [place], [place] [address] documented as of this encounter
--- OUTSIDE RECORDS SUMMARY | 2022-04-22 09:46 | XMS_ITS | Encounter Summary ---
:1955 Author Organization [place] Address [address] [place] [address] Care Team Providers Name Role Phone Tony Gray MD Unavailable Conner Harper MD Unavailable Marlee Coles MD Primary Care Provider [phone] Reason for Visit Reason Comments Back Pain Abdominal Pain Encounter Details Date Type Department Care Team Description 09/30/2015 Hospital Encounter [facility]ade[facility] Degeneration of lumbar or lumbosacral in tervertebral disc; [address] [place] [address] Bilateral lumbar radiculopathy; [place], [place] Opioid type dependence, cont inuous (H) [place], [place] [phone] Social History Tobacco Use Types Packs/Day [...] past week due to father in a fci. He has had rash prior without know [...] from 04/08/15 appropriate for prescribed medications. [place] WEED CONTROL INSPECTOR reviewed on 08/04/15 with percocet 5/325 mg [...] above plan of care. Marivel Cavazos PA-C [facility] documented in this encounter Plan of Treatment Upcoming Encounters Date Type Specialty Care Team Description 04/26/2022 Virtual Visit Pain & [place] [address] [facility] [place] [address] (Wo rk) documented as of this encounter Visit Diagnoses Diagnosis Chronic pain syndrome Degeneration of lumbar or lumbosacral in tervertebral disc Bilateral lumbar radiculopathy Opioid type dependence, continuous (H) Opioid type dependence, continuous documented in this encounter Care Teams Online Editor Relationship Specialty Start Date End Date Marlee Coles MD PCP - General 02/10/15 05/18/21 [place] [address] [address] [place], [place] [address] Tony Gray MD Referring Physician Orthopedics 10/01/14 Conner Harper MD MD Orthopedics 10/01/[address] [place], [place] [id number] documented as of this encounter
--- OUTSIDE RECORDS SUMMARY | 2022-04-22 09:46 | XMS_ITS | Encounter Summary ---
:1955 Author Organization [place] Address [address] [facility] [place] [address] Care Team Providers Name Role Phone Verified, No Ref-Primary Primary Care Provider Unavailable Tony Gray MD Unavailable Conner Harper MD Unavailable Marlee Coles MD Primary Care Provider Ashish Alexander Primary Care Provider Unavailable Reason for Visit Reason Comments Other Other Encounter Details Date Type Department Care Team Description 09/18/2014 Communication - [facility] Marivel Cavazos (Other) [facility] B, PA-C [address] [place] [phone] Social History Tobacco Use Types Packs/Day Years Used Date Smoking Tobacco: Never Assessed Sex Assigned at Date Recorded Not on file documented as of this encounter Plan of Treatment Upcoming Encounters Date Type Specialty Care Team Description 04/26/2022 Virtual Visit Pain & [place] [address] [place], [place] [address] (Wo rk) documented as of this encounter Visit Diagnoses Not on filedocumented in this encounter Care Teams Medical Assistant Cardiology Relationship Specialty Start Date End Date Verified, No Ref-Primary PCP - General 10/01/14 Marlee Coles MD PCP - General 02/10/15 05/18/21 [place] [address] [address] [address] Ashish Alexander PCP - General 12/05/13 09/30/14 Tony Gray MD Referring Physician Orthopedics 10/01/14 Conner Harper MD MD Orthopedics 10/01/14 [facility] [address] [place], [place] [address] [place], [place] [address] documented as of this encounter
--- OUTSIDE RECORDS SUMMARY | 2022-04-22 09:46 | XMS_ITS | Encounter Summary ---
:1955 Author Organization [place] Address [address] [facility] [place] [address] Care Team Providers Name Role Phone Verified, No Ref-Primary Primary Care Provider Unavailable Tony Gray MD Unavailable Conner Harper MD Unavailable Reason for Visit Reason Comments Consult Right knee pain Encounter Details Date Type Department Care Team Description 11/03/2014 Office Visit Orthopaedic Clinic Conner Harper, Knee pain (Primary Dx); [place] Ritesh SCOTT S/P ACL reconstruction; Center [address] [place] [address] DJD (degenerative joint dise ase) of knee; 1st Floor, [address] S/P meniscectomy [address] [place] [phone] Social History Tobacco Use Types Packs/Day Years [...] back to schedule aboveitems. Conner Harper MD [facility] Family Professor Oncology and Adult Reconstructive Surgery Dept Orthopaedic Surgery, [facility] Physicians [phone] office, pager [email or web address] History of Present Illness: C/C: painful swelling, [...] and plan of care. Conner Harper MD [facility] Family Professor Oncology and Adult Reconstructive Surgery Dept Orthopaedic Surgery, [facility] Physicians [phone] office, pager [email or web address] documented in this encounter Nursing Notes Loretta [...] Virtual Visit Pain & [place] [address] [place], [place] [address] (Wo rk) documented as [...] leg documented in this encounter Care Teams Veterans Adviser Relationship Specialty Start Date End Date Verified, No Ref-Primary PCP - General 10/01/14 Tony Gray MD Referring Physician Orthopedics 10/01/14 Conner Harper MD MD Orthopedics 10/01/14 [facility] [place], [place] [address] [place] [address] documented as of this encounter
--- OUTSIDE RECORDS SUMMARY | 2022-04-22 09:46 | XMS_ITS | Encounter Summary ---
:1955 Author Organization [place] Address [address] [facility] 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
--- OUTSIDE RECORDS SUMMARY | 2022-04-22 09:46 | XMS_ITS | Encounter Summary ---
:1955 Author Organization [place] Address [address] [facility] [place] [address] Care Team Providers Name Role Phone Verified, No Ref-Primary Primary Care Provider Unavailable Tony Gray MD Unavailable Conner Harper MD Unavailable Encounter Details Date Type Department Care Team Description 12/09/2014 Orders Only [facility] Conner Harper, Right knee pain [place] [facility] (Primary Dx) [facility] [address] [place] [address] 1st Floor, [address] [facility] [address] [phone] Social History Tobacco Use Types Packs/Day Years Used Date Smoking Tobacco: Never Assessed Sex Assigned at Date Recorded Not on file documented as of this encounter Plan of Treatment Upcoming Encounters Date Type Specialty Care Team Description 04/26/2022 Virtual Visit Pain & [place] [address] [place], [place] [address] (Wo rk) documented as of this encounter Visit Diagnoses Diagnosis Right knee pain - Primary Pain in joint, lower leg documented in this encounter Care Teams Instructor Watch Assembly Relationship Specialty Start Date End Date Verified, No Ref-Primary PCP - General 10/01/14 Tony Gray MD Referring Physician Orthopedics 10/01/14 Conner Harper MD MD Orthopedics 10/01/14 [facility] [place] [address] documented as of this encounter
--- OUTSIDE RECORDS SUMMARY | 2022-04-22 09:46 | XMS_ITS | Encounter Summary ---
:1955 Author Organization [place] Address [address] [facility] [place] [address] Care Team Providers Name Role Phone Tony Gray MD Unavailable Conner Harper MD Unavailable Marlee Coles MD Primary Care Provider [phone] Reason for Visit Reason Comments Medication Problem Encounter Details Date Type Department Care Team Description 06/29/2015 Communication - [facility] Jayna Lopez RN [address] [place] [address] Social History Tobacco Use Types [...] 9:35 AM Encounter Date: 06/29/2015 Status: Signed Unloader Operator: Diya Shahid LPN (Licensed Nurse) Addended by: DIYA SHAHID on: 07/01/2015 09:35 AM Modules accepted: Orders IC ARTIST documented in this encounter Plan of Treatment Upcoming Encounters Date Type Specialty Care Team Description 04/26/2022 Virtual Visit Pain & [place] [address] [place], [place] [address] (Wo rk) documented as of this encounter Visit Diagnoses Diagnosis Degeneration of lumbar or lumbosacral in tervertebral disc documented in this encounter Care Teams Fern Picker Relationship Specialty Start Date End Date Marlee Coles MD PCP - General 02/10/15 05/18/21 [place] [address] [address] [address] Tony Gray MD Referring Physician Orthopedics 10/01/14 Conner Harper MD MD Orthopedics 10/01/[address] [place], [place] [address] documented as of this encounter
--- OUTSIDE RECORDS SUMMARY | 2022-04-22 09:46 | XMS_ITS | Encounter Summary ---
:1955 Author Organization [place] Address [address] [place] [address] Care Team Providers Name Role Phone Tony Gray MD Unavailable Conner Harper MD Unavailable Marlee Coles MD Primary Care Provider Reason for Visit Reason Comments Medication Refill Encounter Details Date Type Department Care Team Description 05/18/2016 Communication - [facility] Marivel Hernadez PA-C [address] [place] [phone] Social History Tobacco Use Types Packs/Day Years Used Date Smoking Tobacco: Never Assessed Sex Assigned at Date Recorded Not on file documented as of this encounter Plan of Treatment Upcoming Encounters Date Type Specialty Care Team Description 04/26/2022 Virtual Visit Pain & [place] [address] [place], [place] [address] (Wo rk) documented as of this encounter Visit Diagnoses Diagnosis Degeneration of lumbar or lumbosacral in tervertebral disc documented in this encounter Care Teams Millstone Cleaner Relationship Specialty Start Date End Date Marlee Coles MD PCP - General 02/10/15 05/18/21 [place] [address] [address] [place], [place] [address] Tony Gray MD Referring Physician Orthopedics 10/01/14 Conner Harper MD MD Orthopedics 10/01/14 [facility] [place], [place] [phone] [place] [address] documented as of this encounter
--- OUTSIDE RECORDS SUMMARY | 2022-04-22 09:46 | XMS_ITS | Encounter Summary ---
:1955 Author Organization [place] Address [address] [facility] 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 He is working with his veterinary virologist to rectify this situation. States he has [...] above plan of care. 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
--- OUTSIDE RECORDS SUMMARY | 2022-04-22 09:46 | XMS_ITS | Encounter Summary ---
:1955 Author Organization [place] Address [address] [facility] [place] [address] Care Team Providers Name Role Phone Tony Gray MD Unavailable Conner Harper MD Unavailable Marlee Coles MD Primary Care Provider [phone] Reason for Visit Reason Comments Back Pain Abdominal Pain Encounter Details Date Type Department Care Team Description 08/04/2015 Hospital Encounter [facility] 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 [facility] forannual visit coming up soon just [...] from 04/08/15 appropriate for prescribed medications. [place] SECURITY ENGINEER reviewed on 08/04/15 with percocet 5/325 mg [...] for pain. Both sent electronically to [facility] today. We will have them void hard [...] above plan of care. 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2 S [facility] [address] [place], [place] [address] documented as of this encounter
--- OUTSIDE RECORDS SUMMARY | 2022-04-22 09:47 | XMS_ITS | Encounter Summary ---
:1955 Author Organization [place] Address [address] [facility] [place] [address] Care Team Providers Name Role Phone Verified, No Ref-Primary Primary Care Provider Unavailable Tony Gray MD Unavailable Conner Harper MD Unavailable Marlee Coles MD Primary Care Provider Ashish Alexander Primary Care Provider Unavailable Reason for Visit Reason Comments Medication Problem Encounter Details Date Type Department Care Team Description 08/12/2014 [facility] Hope Cavazosa titiffanie Problem [facility] Marivel Hernadez PA-C [address] [place] [phone] Social History Tobacco Use Types Packs/Day Years Used Date Smoking Tobacco: Never Assessed Sex Assigned at Date Recorded Not on file documented as of this encounter Plan of Treatment Upcoming Encounters Date Type Specialty Care Team Description 04/26/2022 Virtual Visit Pain & [place] [address] [place], [place] [address] (Wo rk) documented as of this encounter Visit Diagnoses Not on filedocumented in this encounter Care Teams Tooling Engineer Relationship Specialty Start Date End Date Verified, No Ref-Primary PCP - General 10/01/14 Marlee Coles MD PCP - General 02/10/15 05/18/21 [place] [address] [address] [address] Ashish Alexander PCP - General 12/05/13 09/30/14 Tony Gray MD Referring Physician Orthopedics 10/01/14 Conner Harper MD MD Orthopedics 10/01/14 [facility][note 3][address] [place], [place] [address] [place], [place] [address] documented as of this encounter
--- OUTSIDE RECORDS SUMMARY | 2022-04-22 09:47 | XMS_ITS | Encounter Summary ---
:1955 Author Organization [place] Address [address] [facility] [place] [address] Care Team Providers Name Role Phone Verified, No Ref-Primary Primary Care Provider Unavailable Tony Gray MD Unavailable Conner Harper MD Unavailable Marlee Coles MD Primary Care Provider [phone] Ashish Alexander Primary Care Provider Unavailable Encounter Details Date Type Department Care Team Description 08/14/2014 Ambulatory - [facility] B, PA-C [address] [place] [address] (Wo rk) [phone] Social History Tobacco Use Types Packs/Day Years Used Date Smoking Tobacco: Never Assessed Sex Assigned at Date Recorded Not on file documented as of this encounter Plan of Treatment Upcoming Encounters Date Type Specialty Care Team Description 04/26/2022 Virtual Visit Pain & [place] [address] [place], [place] [address] (Wo rk) documented as of this encounter Visit Diagnoses Not on filedocumented in this encounter Care Teams Emergency Room Doctor Relationship Specialty Start Date End Date Verified, No Ref-Primary PCP - General 10/01/14 Marlee Coles MD PCP - General 02/10/15 05/18/21 [place] [address] [address] [address] Ashish Alexander PCP - General 12/05/13 09/30/14 Tony Gray MD Referring Physician Orthopedics 10/01/14 Conner Harper MD MD Orthopedics 10/01/14 [facility]2 [address] [facility] [address] [place], [place] [address] documented as of this encounter
--- OUTSIDE RECORDS SUMMARY | 2022-04-22 09:47 | XMS_ITS | Encounter Summary ---
:1955 Author Organization [place] Address [address] [facility] [place] [address] Care Team Providers Name Role Phone Verified, No Ref-Primary Primary Care Provider Unavailable Tony Gray MD Unavailable Conner Harper MD Unavailable Marlee Coles MD Primary Care Provider Ashish Alexander Primary Care Provider Unavailable Encounter Details Date Type Department Care Team Description 08/01/2014 Communication - [facility] Jessica RN [address] [place] [address] Social History Tobacco Use Types Packs/Day Years Used Date Smoking Tobacco: Never Assessed Sex Assigned at Date Recorded Not on file documented as of this encounter Plan of Treatment Upcoming Encounters Date Type Specialty Care Team Description 04/26/2022 Virtual Visit Pain & [place] [address] [place], [place] [address] (Wo rk) documented as of this encounter Visit Diagnoses Not on filedocumented in this encounter Care Teams Experimental Mechanic Spacecraft Relationship Specialty Start Date End Date Verified, No Ref-Primary PCP - General 10/01/14 Marlee Coles MD PCP - General 02/10/15 05/18/21 [place] [address] [address] [address] Ashish Alexander PCP - General 12/05/13 09/30/14 Tony Gray MD Referring Physician Orthopedics 10/01/14 Conner Harper MD MD Orthopedics 10/01/14 [facility] [place], [place] [address] [place], [place] [address] documented as of this encounter
--- OUTSIDE RECORDS SUMMARY | 2022-04-22 09:47 | XMS_ITS | Encounter Summary ---
:1955 Author Organization [place] Address [address] [facility] [place] [address] Care Team Providers Name Role Phone Verified, No Ref-Primary Primary Care Provider Unavailable Tony Gray MD Unavailable Conner Harper MD Unavailable Marlee Coles MD Primary Care Provider Ashish Alexander Primary Care Provider Unavailable Encounter Details Date Type Department Care Team Description 06/25/2013 Records - [facility] Nita Cavazos PA-C [address] [place] [address] [place] [address] [place], [place] [phone] (Wo rk) [address] [phone] Social History Tobacco Use Types Packs/Day Years Used Date Smoking Tobacco: Never Assessed Sex Assigned at Date Recorded Not on file documented as of this encounter Plan of Treatment Upcoming Encounters Date Type Specialty Care Team Description 04/26/2022 Virtual Visit Pain & [place] [address] [place], [place] [address] (Wo rk) documented as of this encounter Procedures Procedure Name Priority Date/Time Associated Comments Diagnosis LABORATORY Routine 06/25/2013 11:52 Results for this MISCELLANEOUS ORDER AM HOSPICE ADMITTING CLERK procedur e are in the results section. LABORATORY Routine 06/25/2013 11:52 Results for this MISCELLANEOUS ORDER AM HOSPICE ADMITTING CLERK procedur e are in the results section. documented in this encounter Results : Laboratory Miscellaneous Order (06/25/2013 11:52 AM HOSPICE ADMITTING CLERK) Specimen Anatomical Collection Method Collection Time Receive d Time (Source) Location / / Volume Laterality 06/25/2013 11:52 06/25/2013 AM HOSPICE ADMITTING CLERK 11:52 AM HOSPICE ADMITTING CLERK Narrative [facility] Y - 06/25/2013 11:52 AM HOSPICE ADMITTING CLERK Test Description ? Tramadone ?? Specimen at [facility] ?? Department ? Chemistry Reference Test. ?Results to follow Marivel Cavazos PA-C LAB - BLOOD ORDERABLES Performing Organization Address City/State/ZIP Code Phon [place] [address] [address] [facility] : Laboratory Miscellaneous Order (06/25/2013 11:52 AM HOSPICE ADMITTING CLERK) Specimen Anatomical Collection Method Collection Time Receive d Time (Source) Location / / Volume Laterality 06/25/2013 11:52 06/25/2013 AM HOSPICE ADMITTING CLERK 11:52 AM HOSPICE ADMITTING CLERK Narrative REFERRED ESOTERIC TESTS - 06/25/2013 11: 52 AM HOSPICE ADMITTING CLERK Test Name: ? Tramadol and Metabolite, Urine ?? Test Results: ?Tramadol ? Negative ?O-desmethy ltramadol ?Negative ?? Reference Range: Tramadol Cutoff: <5 0 ng/mL ?O-desmethy ltramadol Cutoff: <50 ng/mL ?? Performed By: ?[facility] ?[address] ?[place] [address] Marivel Cavazos PA-C LAB - BLOOD ORDERABLES Performing Organization Address City/State/ZIP Code Phon e Number REFERRED ESOTERIC TESTS documented in this encounter Visit Diagnoses Not on filedocumented in this encounter Care Teams Sumo Wrestler Relationship Specialty Start Date End Date Verified, No Ref-Primary PCP - General 10/01/14 Marlee Coles MD PCP - General 02/10/15 05/18/21 [place] [address] [address] [address] Ashish Alexander PCP - General 12/05/13 09/30/14 Tony Gray MD Referring Physician Orthopedics 10/01/14 Conner Harper MD MD Orthopedics 10/01/[address] [place], [place] [address] documented as of this encounter
--- OUTSIDE RECORDS SUMMARY | 2022-04-22 09:47 | XMS_ITS | Encounter Summary ---
:1955 Author Organization [place] Address [address] [facility] [place] [address] Care Team Providers Name Role Phone Ashish Alexander Augusto Primary Care Provider Unavailable Reason for Visit Reason Comments Back Pain Encounter Details Date Type Department Care Team Description 07/02/2014 Hospital Encounter [facility] Terrence Cavazos onic pain; [facility] Marivel Hernadez PA-C Degeneration of lumbar or lumbosacral in tervertebral disc; [address] [place] [address] Thoracic or lumbosacral neuritis or radi culitis, [place] [phone] Social History Tobacco Use Types Packs/Day Years [...] 170.2 cm (5' 7) 07/02/2014 10:18 AM NECK BAND OPERATOR Body Mass Index - - documented in this encounter Progress Notes Marivel Cavazos PA-C - 07/02/2014 10:30 AM CST . BAND OPERATOR Marivel Cavazos PA-C - 07/02/2014 10:25 [...] above plan of care. Marivel Cavazos PA-C [facility] BAND OPERATOR documented in this encounter Plan of Treatment Upcoming Encounters Date Type Specialty Care Team Description 04/26/2022 Virtual Visit Pain & [place] [address] [place], [place] [address] (Wo rk) documented as of this encounter Visit Diagnoses Diagnosis Chronic pain Other chronic pain Degeneration of lumbar or lumbosacral in tervertebral disc Thoracic or lumbosacral neuritis or radi culitis, unspecified documented in this encounter Care Teams Meal Cooker Relationship Specialty Start Date End Date Ashish Alexander PCP - General 12/05/13 09/30/14 documented as of this encounter
--- OUTSIDE RECORDS SUMMARY | 2022-04-22 09:47 | XMS_ITS | Encounter Summary ---
:1955 Author Organization [place] Address [address] [facility] [place] [address] Care Team Providers Name Role Phone Verified, No Ref-Primary Primary Care Provider Unavailable Tony Gray MD Unavailable Conner Harper MD Unavailable Marlee Coles MD Primary Care Provider Ashish Alexander Primary Care Provider Unavailable Encounter Details Date Type Department Care Team Description 06/29/2014 Ambulatory - [facility] samuel Connell B, PAJuventinoC [address] [facility] [place], [place] [address] (Wo rk) Social History Tobacco Use Types Packs/Day Years Used Date Smoking Tobacco: Never Assessed Sex Assigned at Date Recorded Not on file documented as of this encounter Plan of Treatment Upcoming Encounters Date Type Specialty Care Team Description 04/26/2022 Virtual Visit Pain & [place] [address] [place], [place] [address] (Wo rk) documented as of this encounter Visit Diagnoses Not on filedocumented in this encounter Care Teams Emergency Detail Driver Relationship Specialty Start Date End Date Verified, No Ref-Primary PCP - General 10/01/14 Marlee Coles MD PCP - General 02/10/15 05/18/21 [place] [address] [address] [place] [address] Ashish Alexander PCP - General 12/05/13 09/30/14 Tony Gray MD Referring Physician Orthopedics 10/01/14 Conner Harper MD MD Orthopedics 10/01/14 [facility] [facility] [address] [place], [place] [address] documented as of this encounter
--- OUTSIDE RECORDS SUMMARY | 2022-04-22 09:47 | XMS_ITS | Encounter Summary ---
:1955 Author Organization [place] Address [address] [facility] [place] [address] Care Team Providers Name Role Phone Verified, No Ref-Primary Primary Care Provider Unavailable Tony Gray MD Unavailable Conner Harper MD Unavailable Marlee Coles MD Primary Care Provider Ashish Alexander Primary Care Provider Unavailable Encounter Details Date Type Department Care Team Description 12/26/2012 Records - [facility] Elva Zapata [facility] [address] [phone] [place] [address] (Wo rk) Social History Tobacco Use Types Packs/Day Years Used Date Smoking Tobacco: Never Assessed Sex Assigned at Date Recorded Not on file documented as of this encounter Plan of Treatment Upcoming Encounters Date Type Specialty Care Team Description 04/26/2022 Virtual Visit Pain & [place] [address] [place], [place] [address] (Wo rk) documented as [...] 12/26/2012 AM CDT 11:[address] [facility] Y - 12/26/2012 11:13 AM CDT Test Description ? Tramadol ?? Department ? Chemistry Reference Test. ?Results to follow Elva Zapata LAB - BLOOD ORDERABLES Performing Organization Address [facility] Phon e Number [place] [address] [phone] [address] [facility] : Laboratory Miscellaneous Order (12/26/2012 11:13 AM CDT) Specimen Anatomical Collection Method Collection Time Receive d Time (Source) Location / / Volume Laterality 12/26/2012 11:13 12/26/2012 AM CDT 11:13 AM CDT Narrative REFERRED ESOTERIC TESTS - 12/26/2012 11: 13 AM CDT Test Name: ? Tramadol, Urine ?? Test Results: ?Positive ?? Performed By: ?[facility] ?[address] ?[place] [address] Elva Zapata LAB - BLOOD ORDERABLES Performing Organization Address City/[facility]/ZIP [facility] Phon e Number REFERRED ESOTERIC TESTS documented in this encounter Visit Diagnoses Not on filedocumented in this encounter Care Teams Installation Superintendent Relationship Specialty Start Date End Date Verified, No Ref-Primary PCP - General 10/01/14 Marlee Coles MD PCP - General 02/10/15 05/18/21 [facility] [place] [address] [address] [address] Ashish Alexander PCP - General 12/05/13 09/30/14 Tony Gray MD Referring Physician Orthopedics 10/01/14 Conner Harper MD MD Orthopedics 10/01/14 [address] [facility] [address] [place], [place] [address] documented as of this encounter
--- OUTSIDE RECORDS SUMMARY | 2022-04-22 09:47 | XMS_ITS | Encounter Summary ---
:1955 Author Organization [place] Address [address] [facility] [place] [address] Care Team Providers Name Role Phone Verified, No Ref-Primary Primary Care Provider Unavailable Tony Gray MD Unavailable Conner Harper MD Unavailable Marlee Coles MD Primary Care Provider Ashish Alexander Primary Care Provider Unavailable Encounter Details Date Type Department Care Team Description 08/26/2014 Ambulatory - [facility] [facility], PA-C [address] [place] [address] (Wo rk) [address] [phone] Social History Tobacco Use Types Packs/Day Years Used Date Smoking Tobacco: Never Assessed Sex Assigned at Date Recorded Not on file documented as of this encounter Plan of Treatment Upcoming Encounters Date Type Specialty Care Team Description 04/26/2022 Virtual Visit Pain & [place] [address] [place], [place] [address] (Wo rk) documented as of this encounter Visit Diagnoses Not on filedocumented in this encounter Care Teams Admissions Assistant Relationship Specialty Start Date End Date Verified, No Ref-Primary PCP - General 10/01/14 Marlee Coles MD PCP - General 02/10/15 05/18/21 [place] [address] [address] [address] Ashish Alexander PCP - General 12/05/13 09/30/14 Tony Gray MD Referring Physician Orthopedics 10/01/14 Conner Harper MD MD Orthopedics 10/01/14 [facility] [facility] [address] [place], [place] [address] documented as of this encounter
--- OUTSIDE RECORDS SUMMARY | 2022-04-22 09:47 | XMS_ITS | Encounter Summary ---
:1955 Author Organization [place] Address [address] [place] [address] Care Team Providers Name Role Phone Verified, No Ref-Primary Primary Care Provider Unavailable Tony Gray MD Unavailable Conner Harper MD Unavailable Marlee Coles MD Primary Care Provider Ashish Alexander Primary Care Provider Unavailable Encounter Details Date Type Department Care Team Description 07/02/2014 Ambulatory - [facility] Provider, [address] [address] Social History Tobacco Use Types Packs/Day Years Used Date Smoking Tobacco: Never Assessed Sex Assigned at Date Recorded Not on file documented as of this encounter Progress Notes Historical Provider - 07/02/2014 11:26 AM CST Mailed patient's scripts from today's visit to [facility]. Address is in specialty comments. documented in this encounter Plan of Treatment Upcoming Encounters Date Type Specialty Care Team Description 04/26/2022 Virtual Visit Pain & [place] [address] [place], [place] [address] (Wo rk) documented as of this encounter Visit Diagnoses Not on filedocumented in this encounter Care Teams City Carrier Assistant Relationship Specialty Start Date End Date Verified, No Ref-Primary PCP - General 10/01/14 Marlee Coles MD PCP - General 02/10/15 05/18/21 [place] [address] [address] [place] [address] Ashish Alexander PCP - General 12/05/13 09/30/14 Tony Gray MD Referring Physician Orthopedics 10/01/14 Conner Harper MD MD Orthopedics 10/01/14 [facility] [place], [place] [address] documented as of this encounter
--- OUTSIDE RECORDS SUMMARY | 2022-04-22 09:47 | XMS_ITS | Encounter Summary ---
:1955 Author Organization [place] Address [address] [facility] [place] [address] Care Team Providers Name Role Phone Verified, No Ref-Primary Primary Care Provider Unavailable Tony Gray MD Unavailable Conner Harper MD Unavailable Marlee Coles MD Primary Care Provider Ashish Alexander Primary Care Provider Unavailable Encounter Details Date Type Department Care Team Description 07/05/2012 Records - [facility] Nita Cavazos PA-C [address] [place] [address] [place], [place] [address] [place] [address] (Wo rk) [address] [phone] Social History Tobacco Use Types Packs/Day Years Used Date Smoking Tobacco: Never Assessed Sex Assigned at Date Recorded Not on file documented as of this encounter Plan of Treatment Upcoming Encounters Date Type Specialty Care Team Description 04/26/2022 Virtual Visit Pain & [place] [address] [place], [place] [address] (Wo rk) documented as of this encounter Procedures Procedure Name Priority Date/Time Associated Comments Diagnosis LABORATORY Routine 07/05/2012 11:09 Results for this MISCELLANEOUS ORDER AM TENANT COORDINATOR procedur e are in the results section. LABORATORY Routine 07/05/2012 11:09 Results for this MISCELLANEOUS ORDER AM TENANT COORDINATOR procedur e are in the results section. documented in this encounter Results : Laboratory Miscellaneous Order (07/05/2012 11:09 AM TENANT COORDINATOR) Specimen Anatomical Collection Method Collection Time Receive d Time (Source) Location / / Volume Laterality 07/05/2012 11:09 07/05/2012 AM TENANT COORDINATOR 11:09 AM TENANT COORDINATOR Narrative [facility] - 07/05/2012 11:09 AM TENANT COORDINATOR Test Description ? tamadol urine, CPT 43353 ?? Department ? Chemistry Reference Test. ?Results to follow Marivel Cavazos PA-C LAB - BLOOD ORDERABLES Performing Organization Address City/[facility]/ZIP Code Phon e Number [place] [address] 6[id number] [address] [facility] : Laboratory Miscellaneous Order (07/05/2012 11:09 AM TENANT COORDINATOR) Specimen Anatomical Collection Method Collection Time Receive d Time (Source) Location / / Volume Laterality 07/05/2012 11:09 07/05/2012 AM TENANT COORDINATOR 11:09 AM TENANT COORDINATOR Narrative REFERRED ESOTERIC TESTS - 07/05/2012 11: 09 AM TENANT COORDINATOR Test Name: ? Tramadol, Urine ?? Test Results: ?POSITIVE ?? Performed By: ?[employer] Marivel Cavazos PA-C LAB - BLOOD ORDERABLES Performing Organization Address City/State/ZIP Code Phon e Number REFERRED ESOTERIC TESTS documented in this encounter Visit Diagnoses Not on filedocumented in this encounter Care Teams Project Manager Retail Relationship Specialty Start Date End Date Verified, No Ref-Primary PCP - General 10/01/14 Marlee Coles MD PCP - General 8/25/15 11/30/21 [place] [address] [address] [place] [address] Ashish Alexander PCP - General 12/05/13 09/30/14 Tony Gray MD Referring Physician Orthopedics 10/01/14 Conner Harper MD MD Orthopedics 10/01/14 [facility] [place] [address] [facility] [address] [place], [place] [address] documented as of this encounter
--- OUTSIDE RECORDS SUMMARY | 2022-04-22 09:47 | XMS_ITS | Encounter Summary ---
:1955 Author Organization [place] Address [address] [facility] [place] [address] Care Team Providers Name Role Phone Verified, No Ref-Primary Primary Care Provider Unavailable Tony Gray MD Unavailable Conner Harper MD Unavailable Marlee Coles MD Primary Care Provider [phone] Ashish Alexander Primary Care Provider Unavailable Encounter Details Date Type Department Care Team Description 08/07/2014 Ambulatory - [facility], PA-C [address] [place] [address] (Wo rk) [address] [phone] Social History Tobacco Use Types Packs/Day Years Used Date Smoking Tobacco: Never Assessed Sex Assigned at Date Recorded Not on file documented as of this encounter Plan of Treatment Upcoming Encounters Date Type Specialty Care Team Description 04/26/2022 Virtual Visit Pain & [place] [address] [place], [place] [address] (Wo rk) documented as of this encounter Visit Diagnoses Not on filedocumented in this encounter Care Teams Enlisted Aircrew/Aerial Observer/Gunner Relationship Specialty Start Date End Date Verified, No Ref-Primary PCP - General 10/01/14 Marlee Coles MD PCP - General 02/10/15 05/18/21 [place] [address] [address] [address] Ashish Alexander PCP - General 12/05/13 09/30/14 Tony Gray MD Referring Physician Orthopedics 10/01/14 Conner Harper MD MD Orthopedics 10/01/14 [facility]2 S [facility] [address] [place], [place] [address] documented as of this encounter
--- OUTSIDE RECORDS SUMMARY | 2022-04-22 09:47 | XMS_ITS | Encounter Summary ---
:1955 Author Organization [place] Address [address] [facility] [place] [address] Care Team Providers Name Role Phone Verified, No Ref-Primary Primary Care Provider Unavailable Tony Gray MD Unavailable Conner Harper MD Unavailable Marlee Coles MD Primary Care Provider Ashish Alexander Primary Care Provider Unavailable Reason for Visit Reason Comments Medication Refill Encounter Details Date Type Department Care Team Description 08/18/2014 [facility] [address] [place] [address] Social History Tobacco Use Types Packs/Day Years Used Date Smoking Tobacco: Never Assessed Sex Assigned at Date Recorded Not on file documented as of this encounter Plan of Treatment Upcoming Encounters Date Type Specialty Care Team Description 04/26/2022 Virtual Visit Pain & [place] [address] [place], [place] [address] (Wo rk) documented as of this encounter Visit Diagnoses Not on filedocumented in this encounter Care Teams Elevator Tender Relationship Specialty Start Date End Date Verified, No Ref-Primary PCP - General 10/01/14 Marlee Coles MD PCP - General 02/10/15 05/18/21 [place] [address] [address] [place] [address] Ashish Alexander PCP - General 12/05/13 09/30/14 Tony Gray MD Referring Physician Orthopedics 10/01/14 Conner Harper MD MD Orthopedics 10/01/14 [facility]2 S [facility] [address] [place], [place] [address] documented as of this encounter
--- OUTSIDE RECORDS SUMMARY | 2022-04-22 09:47 | XMS_ITS | Encounter Summary ---
:1955 Author Organization [place] Address [address] [facility] [place] [address] Care Team Providers Name Role Phone Verified, No Ref-Primary Primary Care Provider Unavailable Tony Gray MD Unavailable Conner Harper MD Unavailable Marlee Coles MD Primary Care Provider Ashish Alexander Primary Care Provider Unavailable Reason for Visit Reason Comments Allergic Reaction Records at the pharmacy stat e pt. is allergic to oxycodone Encounter Details Date Type Department Care Team Description 07/10/2014 Communication - [facility] Karen Cavazos ic Reaction [facility] Marivel Hernadez PA-C (Records at the [address] [place] [address] pharmacy..[place], [place] [phone] Social History Tobacco Use Types Packs/Day Years Used Date Smoking Tobacco: Never Assessed Sex Assigned at Date Recorded Not on file documented as of this encounter Plan of Treatment Upcoming Encounters Date Type Specialty Care Team Description 04/26/2022 Virtual Visit Pain & [place] [address] [place], [place] [address] (Wo rk) documented as of this encounter Visit Diagnoses Not on filedocumented in this encounter Care Teams Purchasing Agent Relationship Specialty Start Date End Date Verified, No Ref-Primary PCP - General 10/01/14 Marlee Coles MD PCP - General 02/10/15 05/18/21 [place] [address] [address] [place] [address] Ashish Alexander PCP - General 12/05/13 09/30/14 Tony Gray MD Referring Physician Orthopedics 10/01/14 Conner Harper MD MD Orthopedics 10/01/14 [facility] [place], [place] [address] documented as of this encounter
--- OUTSIDE RECORDS SUMMARY | 2022-04-22 09:47 | XMS_ITS | Encounter Summary ---
:1955 Author Organization [place] Address [address] [facility] [address] Care Team Providers Name Role Phone Ashish Alexander Primary Care Provider Unavailable Encounter Details Date Type Department Care Team Description 05/07/2014 [facility] [address] [place] [address] Social History Tobacco Use Types Packs/Day Years Used Date Smoking Tobacco: Never Assessed Sex Assigned at Date Recorded Not on file documented as of this encounter Plan of Treatment Upcoming Encounters Date Type Specialty Care Team Description 04/26/2022 Virtual Visit Pain & [place] [address] [place], [place] [address] (Wo rk) documented as of this encounter Visit Diagnoses Not on filedocumented in this encounter Care Teams Speech Pathology Supervisor Relationship Specialty Start Date End Date Ashish Alexander PCP - General 12/05/13 09/30/14 documented as of this encounter
--- OUTSIDE RECORDS SUMMARY | 2022-04-22 09:47 | XMS_ITS | Encounter Summary ---
:1955 Author Organization [place] Address [address] [facility] 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
--- OUTSIDE RECORDS SUMMARY | 2022-04-22 09:47 | XMS_ITS | Encounter Summary ---
:1955 Author Organization [place] Address [address] [facility] [address] Care Team Providers Name Role Phone Verified, No Ref-Primary Primary Care Provider Unavailable Tony Gray MD Unavailable Conner Harper MD Unavailable Marlee Coles MD Primary Care Provider [phone] Ashish Alexander Primary Care Provider Unavailable Reason for Visit Reason Comments Medication Problem Encounter Details Date Type Department Care Team Description 08/07/2014 [facility] Hope Cavazosa titiffanie Problem [facility] Marivel Hernadez PA-C [address] [place] [phone] Social History Tobacco Use Types Packs/Day Years Used Date Smoking Tobacco: Never Assessed Sex Assigned at Date Recorded Not on file documented as of this encounter Plan of Treatment Upcoming Encounters Date Type Specialty Care Team Description 04/26/2022 Virtual Visit Pain & [place] [address] [place], [place] [address] (Wo rk) documented as of this encounter Visit Diagnoses Diagnosis Degeneration of lumbar or lumbosacral in tervertebral disc documented in this encounter Care Teams Food Or Baggage Handling Rampman Relationship Specialty Start Date End Date Verified, No Ref-Primary PCP - General 10/01/14 Marlee Coles MD PCP - General 02/10/15 05/18/21 [facility] [place] [address] [address] [address] Ashish Alexander PCP - General 12/05/13 09/30/14 Tony Gray MD Referring Physician Orthopedics 10/01/14 Conner Harper MD MD Orthopedics 10/01/14 [address] [facility] [address] [place], [place] [address] documented as of this encounter
--- OUTSIDE RECORDS SUMMARY | 2022-04-22 09:47 | XMS_ITS | Encounter Summary ---
:1955 Author Organization [place] Address [address] [facility] [place] [address] Care Team Providers Name Role Phone Verified, No Ref-Primary Primary Care Provider Unavailable Tony Gray MD Unavailable Conner Harper MD Unavailable Marlee Coles MD Primary Care Provider [phone] Ashish Alexander Primary Care Provider Unavailable Reason for Visit Reason Comments Medication Problem Encounter Details Date Type Department Care Team Description 07/24/2014 [facility] Hope Cavazosa titiffanie Problem [facility] Marivel Hernadez PA-C [address] [place] [phone] Social History Tobacco Use Types Packs/Day Years Used Date Smoking Tobacco: Never Assessed Sex Assigned at Date Recorded Not on file documented as of this encounter Plan of Treatment Upcoming Encounters Date Type Specialty Care Team Description 04/26/2022 Virtual Visit Pain & [place] [address] [place], [place] [address] (Wo rk) documented as of this encounter Visit Diagnoses Not on filedocumented in this encounter Care Teams Flanging Operator Relationship Specialty Start Date End Date Verified, No Ref-Primary PCP - General 10/01/14 Marlee Coles MD PCP - General 02/10/15 05/18/21 [place] [address] [address] [address] Ashish Alexander PCP - General 12/05/13 09/30/14 Tony Gray MD Referring Physician Orthopedics 10/01/14 Conner Harper MD MD Orthopedics 10/01/14 [facility] [place], [place] [address] [place], [place] [address] documented as of this encounter
--- NOTE | 2022-04-22 10:15 | MR_ITS ---
[address] [address] Phone:?[phone] Fax:?[phone] Referring Physician Information: Gama Hines M.D. [address] [facility] [address] Phone:?[phone] Fax:?[phone] Patient:?Tremaine Plunkett D.O.B:?1955 Sex:?Male Phone:?[phone] [facility] MRN:?[id number] Exam Date:?04/22/2022 ? EXAM: MRI OF THE LEFT KNEE CLINICAL INFORMATION: The patient is a 66-year-old with left knee pain. Evaluate for lateral meniscal tear. PRIOR SURGERY: None reported. COMPARISON STUDIES: There are no prior studies available for comparison. TECHNICAL INFORMATION: Imaging was performed on a high-field, 1.5 Harleen MR scanner. Axial proton-density and fat-suppressed T2 imaging of the left knee was performed in addition to sagittal proton-density and fat-suppressed proton- density imaging. Coronal proton-density and coronal STIR imaging was also produced. FINDINGS: Articular/Extraarticular collections: Effusion: Moderate. Popliteal cyst: Minimal. Loose bodies: No well-defined intra-articular loose bodies are present. Subcutaneous and extraarticular soft tissues: There is fibrosis and a flattened fluid collection seen within the subcutaneous soft tissues along the anterior aspect of the patella and proximal patellar tendon on sagittal series 6 image 20. Surrounding soft tissue edema and/or hemorrhage can be seen. The findings may relate to chronic bursitis or chronic soft tissue injury in this location. Osseous structures: Reactive bony changes are seen involving the tibial spines and lateral intercondylar notch. The findings are consistent with the ACL injury discussed below. No other bony abnormalities about the knee are seen. There is no evidence for fracture, contusion, or stress injury. Ligamentous structures: ACL: The anterior cruciate ligament is abnormal in appearance. Thickening of the ACL can be seen with indistinctness of its margins and increased intrasubstance signal intensity. The findings are in keeping with residual changes of a severe incomplete ACL sprain. Areas of partial-thickness tearing are present, however no well-defined transverse disruption of ACL fibers can be seen. PCL: Chronic residual changes of a moderate incomplete PCL sprain can be seen with thickening and irregularity of the proximal and mid portions on sagittal series 6 image 16. No transverse disruption of PCL fibers can be seen. MCL: Chronic residual changes of a prior incomplete MCL sprain can be seen with thickening of the proximal MCL on coronal series 7 image 17. No acute injury is identified. No transverse disruption of MCL fibers can be seen. LCL: Intact and normal in appearance. Posterolateral corner: Intact and normal in appearance. Posteromedial corner: No posteromedial corner soft tissue injury. Semimembranosus and pes anserine tendons demonstrate no tendinopathy or associated bursitis. Extensor mechanism/Patellar retinacular structures: Patellar tendon: Intact, without tendinopathy. Quadriceps tendon: Intact, without tendinopathy. Retinacula: The medial and lateral retinacula are intact. The medial patellofemoral ligament is intact. Medial compartment: Medial meniscus: Degeneration and fraying of the medial meniscus can be seen. No definite areas of more well-defined tearing are present. There is no evidence for parameniscal cyst formation. No meniscocapsular separation injury is identified. Medial femoral condyle: Broad-based changes of grade II to III chondromalacia can be seen along the weightbearing surfaces of the medial femoral condyle. Medial tibial plateau: Broad-based changes of grade II chondromalacia can be seen along the weightbearing surfaces of the medial tibial plateau. Lateral compartment: Lateral meniscus: Apical free edge tearing and fraying of the middle and posterior portions of the lateral meniscus can be seen on sagittal series 6 image 24 and on coronal series 7 image 22. The area of meniscal tearing measures approximately 15 mm in greatest dimension. Additional degeneration, fraying, and poorly defined tearing of the anterior horn can be seen on sagittal series 5 image 22. No evidence for parameniscal cyst formation is identified. Lateral femoral condyle: No chondromalacia, chondral defect, or osteochondral abnormality. Lateral tibial plateau: No chondromalacia, chondral defect, or osteochondral abnormality. Patellofemoral compartment: Patella: Grade II chondromalacia can be seen along the articular surfaces of the patella. No full-thickness patellar chondral defects are seen. Trochlea: Grade II to III chondromalacia can be seen along the central articular surfaces of the femoral trochlea on sagittal series 6 image 16, measuring 19 mm in greatest dimension. Neurovascular: No definite neurovascular abnormalities are seen. CONCLUSION: 1. Chronic residual changes of prior sprain injuries of the ACL, PCL, and MCL as described above. 2. Degeneration of the medial meniscus without well-defined tearing. 3. Tearing of the anterior, middle, and posterior portions of the lateral meniscus. 4. 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 5. Moderate knee joint effusion. AEC Electronically signed on 04/22/2022 12:38:00 PM by Zhen Person M.D.
== END 2022-04-22 09:38 | disposition home or self-care (01) ==
PROVIDERS: PCP Family Medicine; Visit Provider Orthopaedic Surgery
DX: M25.562 Pain in left knee (principal); S83.512A Sprain of anterior cruciate ligament of left knee, initial encounter; M23.252 Derangement of posterior horn of lateral meniscus due to old tear or injury, left knee; M94.242 Chondromalacia, joints of left hand
CPT/HCPCS: 73721

== ENCOUNTER 2022-05-24 07:05 | Day surgery (SDC) | payer MEDICARE, BC, SELFPAY ==
[2022-05-24] VITALS (13 sets, daily range): BP systolic 96–150; BP diastolic 38–75; PULSE 61–80; RESP 12–16; TEMP 36.1–36.9; O2SAT 95–100; BMI 31.2
[2022-05-24] MEDS: LACTATED RINGERS 1000 ML 1,000 ML 100 ML IV (07:55)
[2022-05-24] MEDS: SODIUM CHLORIDE 0.9 % (FLUSH) 10 ML SYRINGE IVF (07:55)
[2022-05-24] MEDS: CEFAZOLIN 2 GM INJ IVP (08:03)
--- NOTE | 2022-05-24 08:46 | P.ORPRC_ITS ---
Procedure Note Date of procedure: 05/24/22 Procedure: SURGEON: Gama Hines MD [facility] ARCHITECT: FRANKI Barrientos PREOPERATIVE DIAGNOSIS: Left knee medial and lateral meniscus tear POSTOPERATIVE DIAGNOSIS: Left knee medial and lateral meniscus tear NAME OF OPERATION: Left knee arthroscopic partial medial and lateral meniscectomy ANESTHESIA: Spinal ESTIMATED BLOOD LOSS: 0 mL COMPLICATIONS: None SPECIMENS: None DRAINS: None PREOPERATIVE ANTIBIOTICS: Ancef 2 gram INDICATIONS: The patient is a 66-year-old with a history of left knee medial and lateral pain. MRI scan is consistent with a medial and lateral side meniscus tear. Despite appropriate nonoperative management, including activity modification, antiinflammatories, [id number] pain medication, bracing, physical therapy, and injections they continue to have pain and disability. Operative intervention was offered. The risks, benefits and expected outcomes were discussed in detail. These included but were not limited to: Infection, bleeding, injury to blood vessel or nerve, venous thromboembolism. All questions were answered to their satisfaction. PROCEDURE: Spinal anesthesia was administered. The patient was placed supine on the operating room table. The left lower extremity was prepped and draped in the usual sterile fashion. The limb was exsanguinated with the Abelardo bandage. The pneumatic tourniquet was inflated to 300 mmHg. A standard anterolateral portal was established. The arthroscope was intro duced. The working portal was established anteromedially. Diagnostic arthroscopy was performed with findings as follows: The suprapatellar pouch is normal. Articular surface on the patella is normal. Articular surface on the trochlea is normal. The medial gutter is normal. The medial compartment shows normal articular cartilage on the medial femoral condyle and medial tibial plateau. The medial meniscus shows degenerative tearing of the leading edge of the posterior horn. The notch shows the ACL to be degenerative and partially torn. The lateral compartment shows normal articular cartilage on the lateral femoral condyle and lateral tibial plateau. The lateral meniscus has a vertical, longitudinal tear of the posterior horn, just off the anterior tibial attachment. There is degenerative tearing of the leading edge of the midbody, into the posterior horn. The lateral gutter is normal. The posterior horn of the medial meniscus was debrided to a stable base using a shaver. Likewise, of the anterior horn, midbody and posterior horn of the lateral meniscus was debrided with the shaver through both portals, taken to a stable base. The degenerative fibers of the ACL were debrided with the shaver through both portals. Arthroscopic instruments were removed, the portal sites were Steri-Stripped closed, the knee was infiltrated with 30 mL of 0.25% Marcaine without epinephri ne. A dry dressing was applied, the tourniquet was released. Sponge and needle counts were correct x 2. The patient tolerated the procedure well. There were no apparent complications. They were carefully transferred to the hospital bed and taken to the postanesthesia care unit in satisfactory condition. PLAN: The patient will be discharged to home. They may weightbear as tolerates. Range of motion will be unrestricted. They will follow up in the office next week for a wound check.
[2022-05-24] MEDS: BUPIVACAINE 0.25% 30 ML INJECTION (08:47)
--- NOTE | 2022-05-24 09:22 | W.ANESCHARGE ---
Anesthesia Charges Start Date/Time Anesthesia Start Date: 05/24/22 Anesthesia Start Time: 07:56 Stop Date/Time Anesthesia Stop Date: 05/24/22 Anesthesia Stop Time: 08:54 Summary Emergency: No
--- NOTE | 2022-05-24 09:33 | W.ANESCHARGE ---
Anesthesia Charges Start Date/Time Anesthesia Start Date: 05/24/22 Anesthesia Start Time: 07:56 Stop Date/Time Anesthesia Stop Date: 05/24/22 Anesthesia Stop Time: 08:54 Summary Emergency: No
[2022-05-24] MEDS: HYDROCODONE-ACETAMIN 5-325 MG 1 TAB PO (09:50)
[2022-05-24] MEDS: IBUPROFEN 400 MG TABLET 800 MG PO (10:15)
--- NOTE | 2022-05-24 10:22 | SUR.PHASEII ---
Left leg ice pack on, elevated on 2 pillows. Pt reports sharp left knee pain 8/10. No pain behaviors noted. Pt states it hurts bad.
== END 2022-05-24 10:56 | disposition home or self-care (01) ==
PROVIDERS: PCP Family Medicine; Visit Provider Orthopaedic Surgery
PROC: (CPT 29870; principal; 2022-05-24 08:15)
DX: M23.222 Derangement of posterior horn of medial meniscus due to old tear or injury, left knee (principal); M23.252 Derangement of posterior horn of lateral meniscus due to old tear or injury, left knee
CPT/HCPCS: 29880; 01400; A9270; J0131; J0690; J1100; J2250; J2405; J2704; J3010; J3475; J3490; J7120